=== PATIENT | male | born 1965 | race Caucasian/White ===

== ENCOUNTER 2017-06-30 11:00 | Outpatient (RCR) | payer MEDICAID, SELFPAY ==
--- NOTE | 2017-05-10 11:04 | HP.PTEVAL_ITS ---
Patient's Visit Information VITA MAYORGA is a 52 year old M referred to Physical Therapy by SHADE Andres with a diagnosis of LOW BACK PAIN AND LEFT HIP. Date of Evaluation: 05/10/17 Physical Therapist: Yury Ortiz, PT, - Visit Plan Frequency: 2x /Week Duration: 4 Weeks Plan: Aquatics PT for lumbar ROM,DLS,postural ex's ,strengthening,flexablity - Subjective Subjective: This 52 y/o male presents to physcal therapy for low back pain and left hip pain. Patient has had lumbar pain 1992 fell 2story building of [facility] had fx lumbar . 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 Pain has had several pain injections over years. Started see DR Edge. Patient has multple comormidties liver and immune. Symptoms worse in lumbar worse with standing,walking,bending, lifting. Symptoms rest and,on side. Dr x-rays and MRI. Bowel/bladder good. C/O parathesia/tingling legs.Prior PT. Patient pain affects ADL'S and housework. 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 SOCIAL: - Pain Bilateral Back Pain Intensity (Out of 10): 7 Pain Intensity Range: 10 Bilateral Lower Extremity Pain Intensity (Out of 10): 7 Comment: left worse - Objective POSTURE: mild posture. GAIT: mild foward posture antalgic gait. NEURO:c/o parathesia/tingling,light touch inact,reflexes L3-4,L4-5,L5-S1 1/2. FLEXABLITY : hams mod tight. MMT: quads/hams 4-/5,ankle 4/5,L-3+/5 R-4-/5 HIPFLEXION/ABD. DIMINISHED HEEL/TOE WALKING. LUMBAR ROM: flexion mod loss,extension mod pain, SG'S mod loss pain - Special Tests L/S Slump test left side: Negative L/S Slump test right side: Negative L/S Left Straight Leg Raise: Negative L/S Right Straight Leg Raise: Negative Lumbar Standing: Flexion - Mechanical Response: No effect Lumbar Standing: Flexion - Symptoms During Testing: Increases Lumbar Standing: Flexion - Symptoms After Testing: Worse Lumbar Standing: Extension - Mechanical Response: No effect Lumbar Standing: Extension - Symptoms During Testing: Increases Lumbar Standing: Extension - Symptoms After Testing: Worse - Goals Goal 1:: Patient to Independant Aquatic PT Goal Time Frame: 4-6 Weeks Goal 2:: Independant with posture for ADLS' Goal Time Frame: 4-6 Weeks Goal 3:: Decrease lumbar pain by 50% or greater to improve function with walking standing Goal Time Frame: 4-6 Weeks Goal 4:: Patient to increase strength quads/hams/hip to 4/5 to improve function with standing and walking. Goal Time Frame: 4-6 Weeks Goal 5:: Patient improve lumbar with less pain ROM for functiion of recovery. Goal Time Frame: 4-6 Weeks - Rehabilitation Potential Physical Therapy Diagnosis: This 52 y/o male presents to physical therapy with low back pain and hip pain with multiple comormidites along with THR left , lumbar fx ,pain with function,loss of ROM , decrease strength LE thus benifit from skilled PT. Rehabilitation Potential: Good - Anticipated Interventions Patient/Client Instruction: Educate patient on: Condition, Plan of Care For the Purpose of:: To decrease pain, To increase ROM, To improve muscle performance and motor function, To improve ability to perform ADL's, To improve health of tissue, To decrease soft tissue restriction, To increase flexibility/ ROM, To improve endurance, To improve health and function, To improve ability to perform tasks related to life management Therapeutic Exercise to Include: Strength training, Body mechanics, Postural training, Flexibilty training, In an aquatic setting, Active ROM, Scapular Strength/Stabilization For the Purpose of:: To decrease pain, To increase ROM, To improve muscle performance and motor function, To increase tolerance to activity/condition/ position, To improve ability of physical actions for home/community/work/leisure , To improve health of tissue, To decrease soft tissue restriction, To increase flexibility/ROM, To improve health and function, To improve ability to perform tasks related to life management Thank you for the opportunity to evaluate your patient. For Medicare and Medicare HMO plans, please review the plan of care and approve it. It will need to be FAXED BACK to us at [phone] for Medicare purposes. Please let me know if there are questions or concerns regarding this plan of care. Physician Signature: Date:
--- NOTE | 2017-08-24 13:55 | HP.PTDCNRP_ITS ---
HP - Discharge Summary (1) - Patient Information VITA MAYORGA was seen in my office for initial evaluation on 05/10/17. The following Plan of Care was established for this patient: Initial Frequency: 2x /Week Initial Duration: 4 Weeks - Anticipated Interventions Patient/Client Instruction: Educate patient on: Condition, Plan of Care For the Purpose of:: To decrease pain, To increase ROM, To improve muscle performance and motor function, To improve ability to perform ADL's, To improve health of tissue, To decrease soft tissue restriction, To increase flexibility/ ROM, To improve endurance, To improve health and function, To improve ability to perform tasks related to life management Therapeutic Exercise to Include: Strength training, Body mechanics, Postural training, Flexibilty training, In an aquatic setting, Active ROM, Scapular Strength/Stabilization For the Purpose of:: To decrease pain, To increase ROM, To improve muscle performance and motor function, To increase tolerance to activity/condition/ position, To improve ability of physical actions for home/community/work/leisure , To improve health of tissue, To decrease soft tissue restriction, To increase flexibility/ROM, To improve health and function, To improve ability to perform tasks related to life management This patient was last seen in our office 06/30/17. Pertinent comments regarding their Physical therapy will appear below: Patient seen for PT for LBP and hip pain in Aquatic ex's for lumbar ROM , strengthening ,DLS with patient progressing with decreasing pain ,increasing strength for function ,thus is d/c . At this point I will be discontinuing this patient from physical therapy. I would be happy to see this patient again in the future if found appropriate by the physician. Thank you! Yury Ortiz, PT,
== END 2017-06-30 19:00 | disposition home or self-care (01) ==
LOC: PT 11:00
PROVIDERS: Family Provider Internal Medicine; PCP Internal Medicine; Visit Provider Nurse Practitioner Family
DX: M54.5 Low back pain (principal); M25.552 Pain in left hip
CPT/HCPCS: 97113; 97162; 97530

== ENCOUNTER 2017-07-21 16:48 | Observation (INO) | payer MEDICAID, SELFPAY ==
[2017-07-21] VITALS (10 sets, daily range): BP systolic 113–138; BP diastolic 78–96; PULSE 73–107; RESP 13–22; TEMP 36.5–36.8; O2SAT 96–99; BMI 30.4; BMI 28.7
--- NOTE | 2017-07-21 17:05 | EKG12_ITS ---
Test Reason : CP Blood Pressure : / mmHG Vent. Rate : 094 BPM Atrial Rate : 094 BPM P-R Int : 118 ms QRS Dur : 082 ms QT Int : 324 ms P-R-T Axes : 019 069 033 degrees QTc Int : 405 ms Normal sinus rhythm Normal ECG Confirmed by BETY MOHAN, PETRONA ([id number]), metropolitan editor OSCAR QUEZADA ([id number]) on 07/25/2017 1:15:08 PM Referred By: LEAH Confirmed By:PETRONA ALBERT MD
--- NOTE | 2017-07-21 17:10 | RAD_ITS ---
STUDY: X-RAY CHEST REASON FOR EXAM: Male, 52 years old. Chest pain. TECHNIQUE: Single AP portable upright view of the chest. COMPARISON: Portable AP upright chest x-ray March 17, 2017. FINDINGS: Minimal subsegmental volume loss in the inferior left lung base. The lungs are otherwise clear and expanded. There is no demonstrated pleural abnormality. Normal size heart. Normal mediastinum and rima. Normal visualized pulmonary arteries. Normal visualized aortic arch and descending thoracic aorta. Normal visualized thoracic spine. Normal visualized ribs, clavicles, and shoulders. There is no demonstrated abnormality of the visualized soft tissue structures of the upper abdomen. RAD/Chest 1 View (Portable) IMPRESSION: Minimal inferior left lung base subsegmental volume loss. Electronically Signed: Og Tipton MD at 18:23 EST , Service support ,
[2017-07-21] MEDS: 0.9% Normal Saline 1,000 ML 150 ML IV (17:23)
[2017-07-21 17:34] LABS: Absolute Lymphocyte Count 3.99 X10^3/ul (0.83-4.51); Absolute Neutrophil Count 16.8 X10^3/uL (2.0-7.7); Basophil# 0.01 X10^3/uL; Eosinophil# 0.01 X10^3/uL; Hemoglobin 16.3 g/dl (13.0-16.5); Lymphocyte # 3.99 X10^3/ul (4.0); Lymphocyte % 18.1 % (19-41); Mean Corp Hgb Conc 33.3 g/gl (32-36); Mean Corpuscular Hgb 31.8 pg (27.0-32.0); Mean Corpuscular Volume 95.5 fL (80-94); Monocyte# 1.18 X10^3/uL; Monocyte% 5.4 % (0-10); Neutrophil # 16.75 X10^3/uL (2.7-7.7); Neutrophil % 76.1 % (47-70); POSITIVE COUNT NO; POSITIVE DIFFERENTIAL NO; POSITIVE MORPHOLOGY NO; Platelet Count 306 K/mm3 (150-450); RBC Distribution Width CV 12.4 % (11.6-14.6); RBC Distribution Width SD 43.3 fl (35.1-43.9); Red Blood Count 5.13 M/mm3 (4.6-6.2)
[2017-07-21 17:49] LABS: D-Dimer Quantitative (DVT/PE) 3.77 FEU/ug/m (0.27-0.49)
--- NOTE | 2017-07-21 17:52 | CT_ITS ---
STUDY: CTA CHEST REASON FOR EXAM: Male, 52 years old. STERNAL CP, COUGH, PA, COPD, HEP C, [place], NON-HODGKINS LYMPHOMA RADIATION DOSAGE (If Supplied By Facility): CTDIvol = ( 15.90 ) mGy, DLP = ( 531.15 ) mGycm TECHNIQUE: The examination was performed with the intravenous administration of 100ML ml of Isovue 370 contrast material. Post-processing of the angiographic images was performed, with multiplanar reformation and 3D reconstruction. Individualized dose optimization techniques were used for this CT. COMPARISON: None. FINDINGS: Normal enhancement of the main pulmonary artery and right and left pulmonary arteries. Normal enhancement of the bilateral peripheral pulmonary arteries. There is no demonstrated pulmonary embolism. Normal thoracic aorta and visualized great vessels. There is no demonstrated aortic dissection. There are calcifications of the coronary arteries. Normal mediastinum. Normal hilar regions. Normal visualized trachea and bronchi. The lungs are well expanded . Normal pulmonary parenchyma. Normal pleura. Normal chest wall structures. Normal osseous structures. Normal visualized upper abdomen. CT/CTA Chest W/WO Contrast IMPRESSION: There are calcifications of the coronary arteries. No demonstrated pulmonary embolism or arterial dissection. Electronically Signed: Saeed Caicedo MD at 20:01 EST , Service support ,
[2017-07-21 17:54] LABS: Anion Gap 9 (5-15); BUN 19 mg/dL (7-18); BUN/Creat Ratio 17.9 RATIO (10-20); Calcium,Total 8.6 mg/dL (8.5-10.1); Chloride 104 mmol/L (98-107); Creatinine, Serum 1.06 mg/dL (0.70-1.30); EST Glomerular Filtration Rate 79 mL/min (>60); Est Glom Filt Rate - Afr Amer 95 mL/min (>60); Estimated Creatinine Clearance 75.24 ml/min; Glucose 108 mg/dL (74-106); Sodium Level 140 mmol/L (136-145)
[2017-07-21] MEDS: Ondansetron 4 MG/2 ML Vial IV (19:40)
--- NOTE | 2017-07-21 21:40 | PCM.HP.STD ---
Problem List (1) [place] lymphoma Status: Chronic (2) Myocardial infarction Status: Chronic (3) Hypothyroidism Status: Chronic (4) Cocaine abuse Status: Chronic (5) COLD (chronic obstructive lung disease) Status: Chronic (6) Chronic hepatitis C Status: Chronic (7) Bipolar disorder Status: Chronic History of Present Illness Date of Admission: 07/21/17 Chief Complaint: Chest pain. The patient is a 52 year old M with past medical history as mentioned above presented to the medicine because of chest pain. His illness started 3 days ago with left-sided chest pain, sharp pain, 5-6 out of 10 in severity, radiates to left side of his neck as well as left upper arm, associated with shortness of breath and dizziness and without aggravating or relieving factors. He mentioned that his chest pain improved after he received nitroglycerin in the emergency room. He mentioned that yesterday, he got more short of breath and he has been using his inhaler at home without improvement. He complains of cough without sputum production. He reported history of 2 heart attacks in the past, status post cardiac catheterization without history of cardiac interventions, no stents or CABG. In the emergency room, his vital signs were stable. His routine blood work is remarkable for leukocytosis, otherwise normal. EKG revealed normal sinus rhythm, normal QRS normal IN interval and no acute ischemic changes. Chest x-ray showed no evidence of acute infiltrate, consolidation or effusion. D-dimer was elevated at 3.774 CTA chest done and showed no evidence of PE or dissection. He is being admitted for chest pain for evaluation. Past Medical History Past Medical History (Chronic Problems): Chronic Problems Tobacco user (Chronic) [place] lymphoma (Chronic) Myocardial infarction (Chronic) Hypothyroidism (Chronic) Cocaine abuse (Chronic) COLD (chronic obstructive lung disease) (Chronic) Chronic hepatitis C (Chronic) Bipolar disorder (Chronic) Allergies naproxen [From Naprosyn] Adverse Reaction (Verified 02/23/17 19:15) Upset Stomach BEE VENOM Allergy (Uncoded 02/23/17 19:15) Anaphylaxis Home Medications: Ambulatory Orders Medication Instructions Recorded Levothyroxine [Synthroid] 112 mcg PO DAILY 07/10/16 [place] Carbonate [[place] 300 mg PO DAILY 07/10/16 Carbonate ER] Albuterol Sulfate [Proventil Hfa] 6.7 gm IH Q4H PRN 10/21/16 Gabapentin [Neurontin] 900 mg PO TIDCM 10/21/16 Acyclovir [Zovirax] 1 tab PO DAILY 07/21/17 Buprenorphine [Buprenorphine] 1 patch TD QWEEK 07/21/17 Meloxicam [Mobic] 15 mg PO DAILY 07/21/17 MethylPREDNISolone DosePak [Medrol 1 tab PO DAILY 07/21/17 DosePak] Nitroglycerin 0.4 mg SL PRN PRN 07/21/17 Prednisone 20 mg PO DAILY 07/21/17 Surgical History: appendectomy, arthroscopy, knee, total hip arthroplasty, - - Facial reconstructive surgery. Psychiatric History: Bipolar Lives: Spouse/ Significant Other Smoking Status: Current every day smoker Alcohol: None Drugs: None - *Family History Maternal History Items: No pertinent history Paternal History Items: No pertinent history Review of Systems Constitutional: Reports: Anorexia. Denies: Chills, Fever, Weakness Eyes: Denies: Blurred vision, Double vision, Drainage, Redness HEENT: Denies: Difficulty Hearing, Ear Pain, Eye Pain, Nasal Congestion, Sore Throat Cardiovascular: Reports: Chest Pain, Light Headedness. Denies: Chest Pressure, Edema, Heaviness, Orthopnea, Palpitations, Paroxysmal Noc. Dyspnea, Syncope Respiratory: Reports: Cough, Shortness of Breath. Denies: Pleuritic Pain, Sputum production, Wheezing Gastrointestinal: Denies: Abdominal Pain, Constipation, Diarrhea, Nausea, Vomiting Genitourinary: Denies: Dysuria, Frequency, Hematuria Musculoskeletal: Denies: Arm Pain, Back Pain, Foot Pain Skin: Denies: Dryness, Rash Neurological: Denies: Balance problems, Change in Speech, Slurred speech, Confusion, Headaches, Incoordination, Numbness, Tingling Psychiatric: Denies: Anxiety, Depression Endocrine: Denies: Change in Body Habitus, Polydipsia VTE Information - Inpt Only VTE Present on Admission: No VTE Mechan Device Prophylaxis: None VTE Pharm Prophylaxis ordered?: No - Physical Exam General: Alert, Oriented x3, Cooperative, No apparent distress HEENT: Atraumatic, PERRLA, EOMI Oral: Moist Mucosa, No Gingival or Mucosal Lesions/ Ulcerations Neck: Supple, No JVD, Negative Carotid Bruits, Trachea Midline, Thyroid Normal Size and Texture Lungs: Clear to auscultation, No rhonchi, No wheeze, No rales, Diminished Cardiovascular: Regular rate, Regular Rhythm, Normal S1, Normal S2, PMI Normal Abdomen: Bowel Sounds Present, Soft, Non Tender, Non-Distended, No Hepato-splenomegaly Extremities: No clubbing, No cyanosis, No edema Skin: No rashes, No breakdown Lymphatic: No Cervical, Supraclavicular, or Inguinal Adenopathy Neurological: Cranial nerves II-XII grossly intact, Motor Exam 5/5 strength throughout Psych/Mental Status: Normal Affect, Appropriate, Alert and oriented to time, place, person, mood and affect Vital Signs Temp Pulse Resp BP Pulse Ox 98.3 F 74 16 129/96 H 98 07/21/17 16:49 07/21/17 21:35 07/21/17 21:35 07/21/17 21:35 07/21/17 21:35 Oxygen Flow Rate 2 Oxygen Delivery Method Nasal Cannula Weight: 188 lb 4.396 oz Body Mass Index (BMI) 30.4 Laboratory Tests Past 24 Hrs 07/21/17 07/21/17 07/21/17 16:55 16:55 16:55 WBC 22.0 H RBC 5.13 Hgb 16.3 Hct 49.0 MCV 95.5 H MCH 31.8 MCHC 33.3 RDW 12.4 RDW Differential 43.3 Plt Count 306 MPV 9.0 Immature Gran % (Auto) 0.400 Neut % (Auto) 76.1 H Lymph % (Auto) 18.1 L [place] % (Auto) 5.4 Eos % (Auto) 0.0 Baso % (Auto) 0.0 Absolute Neuts (auto) 16.8 H Absolute Lymphs (auto) 3.99 Total Counted Not Reportable D-Dimer Quant (PE/DVT) 3.77 H* Sodium 140 Potassium 4.0 Chloride 104 Carbon Dioxide 27.0 Anion Gap 9 BUN 19 H Creatinine 1.06 Estim Creat Clear Calc 75.24 Est GFR (MDRD) Af Amer 95 Est GFR (MDRD) Non-Af 79 BUN/Creatinine Ratio 17.9 Glucose 108 H Calcium 8.6 Troponin I < 0.02 Clinical Impression(s) from Imaging Studies Chest X-Ray 07/21/17 17:10 IMPRESSION: Minimal inferior left lung base subsegmental volume loss. Electronically Signed: Og Tipton MD at 18:23 EST , Service support , Chest CTA 07/21/17 17:52 IMPRESSION: There are calcifications of the coronary arteries. No demonstrated pulmonary embolism or arterial dissection. Electronically Signed: Saeed Caicedo MD at 20:01 EST , Service support , Assessment/Plan This is a 52 years old male patient presented to the emergency room because of chest pain and shortness of breath, found to have leukocytosis and elevated d-dimer and he is being admitted for evaluation for chest pain. #1 chest pain: According to the patient, he had a history of 2 heart attacks in the past as well as cardiac catheterization without cardiac interventions. EKG was normal, no acute ischemic changes. First troponin is negative. Chest x-ray showed no acute findings. CTA chest without acute PE or dissection. Vital signs are stable. Plan: Admit to PCU for observation, cardiac monitoring, serial cardiac enzymes, repeat EKG tomorrow morning, sublingual nitroglycerin as needed for chest pain, antiemetics, Tylenol as needed, nuclear stress test tomorrow morning if cardiac enzymes are negative. #2 elevated d-dimer: CTA chest negative for PE or dissection. Unclear etiology. #3 leukocytosis: Without evidence of infection. Chest x-ray and CTA chest showed no acute infiltrate, pneumonia ruled out. Patient denies any urinary symptoms. He does have chronic elevation of his white blood cell count which is likely because of the non-Hodgkin's lymphoma. Also, he was in steroids as outpatient for shingles along with acyclovir. He is afebrile, plan to repeat CBC tomorrow morning. #4 hypothyroidism: Continue levothyroxine. #5 COPD: Pulse ox is 99% on 2 L of oxygen. Chest x-ray reviewed as above. Plan for DuoNeb every 6 hours, albuterol as needed. #6 history of non-Hodgkin's lymphoma: Stable, no acute issues. #7 bipolar disorder: Continue lithium. #8 history of cocaine abuse: Patient mentioned that he has been clean for 5 years, denied any recent use of drugs. #9 chronic hepatitis C: Stable, no acute issues. #10 recent history of shingles: Continue acyclovir. #11 DVT prophylaxis: Low risk patient, no prophylaxis indicated. This note was generated with [employer] dictation software. It may contain incorrect words, spelling, and punctuation that were not noted in checking the note before signing. Code Visit OBSV E&M: 59035 Initial observation care L3
--- NOTE | 2017-07-21 21:46 | HP.PCM_ITS ---
Problem List (1) [place] lymphoma Status: Chronic (2) Myocardial infarction Status: Chronic (3) Hypothyroidism Status: Chronic (4) Cocaine abuse Status: Chronic (5) COLD (chronic obstructive lung disease) Status: Chronic (6) Chronic hepatitis C Status: Chronic (7) Bipolar disorder Status: Chronic History of Present Illness Date of Admission: 07/21/17 Chief Complaint: Chest pain. The patient is a 52 year old M with past medical history as mentioned above presented to the medicine because of chest pain. His illness started 3 days ago with left-sided chest pain, sharp pain, 5-6 out of 10 in severity, radiates to left side of his neck as well as left upper arm, associated with shortness of breath and dizziness and without aggravating or relieving factors. He mentioned that his chest pain improved after he received nitroglycerin in the emergency room. He mentioned that yesterday, he got more short of breath and he has been using his inhaler at home without improvement. He complains of cough without sputum production. He reported history of 2 heart attacks in the past, status post cardiac catheterization without history of cardiac interventions, no stents or CABG. In the emergency room, his vital signs were stable. His routine blood work is remarkable for leukocytosis, otherwise normal. EKG revealed normal sinus rhythm, normal QRS normal ME interval and no acute ischemic changes. Chest x-ray showed no evidence of acute infiltrate, consolidation or effusion. D-dimer was elevated at 3.774 CTA chest done and showed no evidence of PE or dissection. He is being admitted for chest pain for evaluation. Past Medical History Past Medical History (Chronic Problems): Chronic Problems Tobacco user (Chronic) [place] lymphoma (Chronic) Myocardial infarction (Chronic) Hypothyroidism (Chronic) Cocaine abuse (Chronic) COLD (chronic obstructive lung disease) (Chronic) Chronic hepatitis C (Chronic) Bipolar disorder (Chronic) Allergies naproxen [From Naprosyn] Adverse Reaction (Verified 02/23/17 19:15) Upset Stomach BEE VENOM Allergy (Uncoded 02/23/17 19:15) Anaphylaxis Home Medications: Ambulatory Orders Medication Instructions Recorded Levothyroxine [Synthroid] 112 mcg PO DAILY 07/10/16 [place] Carbonate [[place] 300 mg PO DAILY 07/10/16 Carbonate ER] Albuterol Sulfate [Proventil Hfa] 6.7 gm IH Q4H PRN 10/21/16 Gabapentin [Neurontin] 900 mg PO TIDCM 10/21/16 Acyclovir [Zovirax] 1 tab PO DAILY 07/21/17 Buprenorphine [Buprenorphine] 1 patch TD QWEEK 07/21/17 Meloxicam [Mobic] 15 mg PO DAILY 07/21/17 MethylPREDNISolone DosePak [Medrol 1 tab PO DAILY 07/21/17 DosePak] Nitroglycerin 0.4 mg SL PRN PRN 07/21/17 Prednisone 20 mg PO DAILY 07/21/17 Surgical History: appendectomy, arthroscopy, knee, total hip arthroplasty, - - Facial reconstructive surgery. Psychiatric History: Bipolar Lives: Spouse/ Significant Other Smoking Status: Current every day smoker Alcohol: None Drugs: None - *Family History Maternal History Items: No pertinent history Paternal History Items: No pertinent history Review of Systems Constitutional: Reports: Anorexia. Denies: Chills, Fever, Weakness Eyes: Denies: Blurred vision, Double vision, Drainage, Redness HEENT: Denies: Difficulty Hearing, Ear Pain, Eye Pain, Nasal Congestion, Sore Throat Cardiovascular: Reports: Chest Pain, Light Headedness. Denies: Chest Pressure, Edema, Heaviness, Orthopnea, Palpitations, Paroxysmal Noc. Dyspnea, Syncope Respiratory: Reports: Cough, Shortness of Breath. Denies: Pleuritic Pain, Sputum production, Wheezing Gastrointestinal: Denies: Abdominal Pain, Constipation, Diarrhea, Nausea, Vomiting Genitourinary: Denies: Dysuria, Frequency, Hematuria Musculoskeletal: Denies: Arm Pain, Back Pain, Foot Pain Skin: Denies: Dryness, Rash Neurological: Denies: Balance problems, Change in Speech, Slurred speech, Confusion, Headaches, Incoordination, Numbness, Tingling Psychiatric: Denies: Anxiety, Depression Endocrine: Denies: Change in Body Habitus, Polydipsia VTE Information - Inpt Only VTE Present on Admission: No VTE Mechan Device Prophylaxis: None VTE Pharm Prophylaxis ordered?: No - Physical Exam General: Alert, Oriented x3, Cooperative, No apparent distress HEENT: Atraumatic, PERRLA, EOMI Oral: Moist Mucosa, No Gingival or Mucosal Lesions/ Ulcerations Neck: Supple, No JVD, Negative Carotid Bruits, Trachea Midline, Thyroid Normal Size and Texture Lungs: Clear to auscultation, No rhonchi, No wheeze, No rales, Diminished Cardiovascular: Regular rate, Regular Rhythm, Normal S1, Normal S2, PMI Normal Abdomen: Bowel Sounds Present, Soft, Non Tender, Non-Distended, No Hepato- splenomegaly Extremities: No clubbing, No cyanosis, No edema Skin: No rashes, No breakdown Lymphatic: No Cervical, Supraclavicular, or Inguinal Adenopathy Neurological: Cranial nerves II-XII grossly intact, Motor Exam 5/5 strength throughout Psych/Mental Status: Normal Affect, Appropriate, Alert and oriented to time, place, person, mood and affect Vital Signs Temp Pulse Resp BP Pulse Ox 98.3 F 74 16 129/96 H 98 07/21/17 16:49 07/21/17 21:35 07/21/17 21:35 07/21/17 21:35 07/21/17 21:35 Oxygen Flow Rate 2 Oxygen Delivery Method Nasal Cannula Weight: 188 lb 4.396 oz Body Mass Index (BMI) 30.4 Laboratory Tests Past 24 Hrs 07/21/17 07/21/17 07/21/17 16:55 16:55 16:55 WBC 22.0 H RBC 5.13 Hgb 16.3 Hct 49.0 MCV 95.5 H MCH 31.8 MCHC 33.3 RDW 12.4 RDW Differential 43.3 Plt Count 306 MPV 9.0 Immature Gran % (Auto) 0.400 Neut % (Auto) 76.1 H Lymph % (Auto) 18.1 L [place] % (Auto) 5.4 Eos % (Auto) 0.0 Baso % (Auto) 0.0 Absolute Neuts (auto) 16.8 H Absolute Lymphs (auto) 3.99 Total Counted Not Reportable D-Dimer Quant (PE/DVT) 3.77 H* Sodium 140 Potassium 4.0 Chloride 104 Carbon Dioxide 27.0 Anion Gap 9 BUN 19 H Creatinine 1.06 Estim Creat Clear Calc 75.24 Est GFR (MDRD) Af Amer 95 Est GFR (MDRD) Non-Af 79 BUN/Creatinine Ratio 17.9 Glucose 108 H Calcium 8.6 Troponin I < 0.02 Clinical Impression(s) from Imaging Studies Chest X-Ray 07/21/17 17:10 IMPRESSION: Minimal inferior left lung base subsegmental volume loss. Electronically Signed: Og Tipton MD at 18:23 EST , Service support , Chest CTA 07/21/17 17:52 IMPRESSION: There are calcifications of the coronary arteries. No demonstrated pulmonary embolism or arterial dissection. Electronically Signed: Saeed Caicedo MD at 20:01 EST , Service support , Assessment/Plan This is a 52 years old male patient presented to the emergency room because of chest pain and shortness of breath, found to have leukocytosis and elevated d- dimer and he is being admitted for evaluation for chest pain. #1 chest pain: According to the patient, he had a history of 2 heart attacks in the past as well as cardiac catheterization without cardiac interventions. EKG was normal, no acute ischemic changes. First troponin is negative. Chest x- ray showed no acute findings. CTA chest without acute PE or dissection. Vital signs are stable. Plan: Admit to PCU for observation, cardiac monitoring, serial cardiac enzymes, repeat EKG tomorrow morning, sublingual nitroglycerin as needed for chest pain, antiemetics, Tylenol as needed, nuclear stress test tomorrow morning if cardiac enzymes are negative. #2 elevated d-dimer: CTA chest negative for PE or dissection. Unclear etiology. #3 leukocytosis: Without evidence of infection. Chest x-ray and CTA chest showed no acute infiltrate, pneumonia ruled out. Patient denies any urinary symptoms. He does have chronic elevation of his white blood cell count which is likely because of the non-Hodgkin's lymphoma. Also, he was in steroids as outpatient for shingles along with acyclovir. He is afebrile, plan to repeat CBC tomorrow morning. #4 hypothyroidism: Continue levothyroxine. #5 COPD: Pulse ox is 99% on 2 L of oxygen. Chest x-ray reviewed as above. Plan for DuoNeb every 6 hours, albuterol as needed. #6 history of non-Hodgkin's lymphoma: Stable, no acute issues. #7 bipolar disorder: Continue lithium. #8 history of cocaine abuse: Patient mentioned that he has been clean for 5 years, denied any recent use of drugs. #9 chronic hepatitis C: Stable, no acute issues. #10 recent history of shingles: Continue acyclovir. #11 DVT prophylaxis: Low risk patient, no prophylaxis indicated. This note was generated with [employer] dictation software. It may contain incorrect words, spelling, and punctuation that were not noted in checking the note before signing. Code Visit OBSV E&M: 83540 Initial observation care L3
[2017-07-22] VITALS (9 sets, daily range): BP systolic 99–112; BP diastolic 60–74; PULSE 67–110; RESP 16–18; TEMP 36.6–36.7; O2SAT 95–98
--- NOTE | 2017-07-22 00:48 | ED.VISSUMM ---
- ER Visit Summary Date of Service: 07/21/17 Chief Complaint: Chest pain History of Present Illness: The patient is a 52 M with a 2-3 day history of waxing and waning chest pain. He describes a general heaviness that radiates up his left neck down his left arm. He also reports intermittent sharp pain along the left sternal border. He has had shortness of breath and lightheadedness. He advises me that he has had 2 prior MIs. He does not have any cardiac stents. He states that he was recently diagnosed with shingles and is currently on steroids. Physical Examination: Vital signs are unremarkable. Head and neck examination is unremarkable. Heart is regular rate and rhythm. Lung sounds are clear. He does have mild tenderness along left sternal border. Abdomen is soft nontender. Skin examination reveals scattered erythematous lesions on the face and bilateral arms. It is not consistent with shingles at this time. Lower extremity examination was no calf tenderness or edema. Test Results: EKG is sinus at 94 with no sign of acute ischemia. CBC reveals minimal left lung base volume loss. CBC was a white count of 22.0, likely secondary to patient's steroid use. Chemistry studies are normal. Troponin is less than 0.02. D-dimer is elevated at 3.77. CTA of the chest reveals calcifications of the coronary arteries. No evidence of PE or dissection was noted. Emergency Department Course and Treatment: Patient was given aspirin and sublingual nitro with EMS. He received a GI cocktail for his complaint of reflux along with some morphine for pain here. Although the patient has had 2-3 days of pain, am concerned about him being lost to follow-up in the past and having documented calcifications of his coronary arteries on scan here. He will be admitted for further evaluation. Treatment Plan: [] Disposition: Discharge Impression: Chest pain This note was generated with HubPages dictation software. It may contain incorrect words, spelling, and punctuation that were not noted in review of the chart prior to signing ED Disposition - Plan for ED Patient: Disposition: Acute Care Hospital [facility] Chief Complaint: Chest Pain
--- NOTE | 2017-07-22 00:51 | ED.DCSUM_ITS ---
- ER Visit Summary Date of Service: 07/21/17 Chief Complaint: Chest pain History of Present Illness: The patient is a 52 M with a 2-3 day history of waxing and waning chest pain. He describes a general heaviness that radiates up his left neck down his left arm. He also reports intermittent sharp pain along the left sternal border. He has had shortness of breath and lightheadedness. He advises me that he has had 2 prior MIs. He does not have any cardiac stents. He states that he was recently diagnosed with shingles and is currently on steroids. Physical Examination: Vital signs are unremarkable. Head and neck examination is unremarkable. Heart is regular rate and rhythm. Lung sounds are clear. He does have mild tenderness along left sternal border. Abdomen is soft nontender. Skin examination reveals scattered erythematous lesions on the face and bilateral arms. It is not consistent with shingles at this time. Lower extremity examination was no calf tenderness or edema. Test Results: EKG is sinus at 94 with no sign of acute ischemia. CBC reveals minimal left lung base volume loss. CBC was a white count of 22.0, likely secondary to patient's steroid use. Chemistry studies are normal. Troponin is less than 0.02. D-dimer is elevated at 3.77. CTA of the chest reveals calcifications of the coronary arteries. No evidence of PE or dissection was noted. Emergency Department Course and Treatment: Patient was given aspirin and sublingual nitro with EMS. He received a GI cocktail for his complaint of reflux along with some morphine for pain here. Although the patient has had 2- 3 days of pain, am concerned about him being lost to follow-up in the past and having documented calcifications of his coronary arteries on scan here. He will be admitted for further evaluation. Treatment Plan: [] Disposition: Discharge Impression: Chest pain This note was generated with Inter[employer]olve dictation software. It may contain incorrect words, spelling, and punctuation that were not noted in review of the chart prior to signing ED Disposition - Plan for ED Patient: Disposition: Acute Care Hospital [facility] Chief Complaint: Chest Pain
[2017-07-22] MEDS: Gabapentin 300 MG Capsule 900 MG PO ×2 (01:01→11:12)
[2017-07-22] MEDS: 0.9% Normal Saline 1,000 ML 75 ML IV (01:01)
[2017-07-22] MEDS: Ipratropium/Albuterol Sulfate 3 ML AMPUL.NEB INHALATION (01:04)
[2017-07-22] MEDS: 0.9% NaCl Peripheral Flush Adult/Peds IV (01:58)
[2017-07-22 03:23] LABS: Absolute Lymphocyte Count 5.07 X10^3/ul (0.83-4.51); Absolute Neutrophil Count 9.3 X10^3/uL (2.0-7.7); Basophil# 0.02 X10^3/uL; Basophil% 0.1 % (0-1); Eosinophil# 0.07 X10^3/uL; Eosinophils% 0.4 % (0-5); Hematocrit 47.5 % (40-54); Hemoglobin 16.3 g/dl (13.0-16.5); Lymphocyte # 5.07 X10^3/ul (4.0); Lymphocyte % 31.7 % (19-41); Mean Corp Hgb Conc 34.3 g/gl (32-36); Mean Corpuscular Hgb 32.4 pg (27.0-32.0); Mean Corpuscular Volume 94.4 fL (80-94); Mean Platelet Vol. 8.8 fl (6.2-12.0); Monocyte% 8.8 % (0-10); Neutrophil # 9.33 X10^3/uL (2.7-7.7); Neutrophil % 58.4 % (47-70); Platelet Count 275 K/mm3 (150-450); RBC Distribution Width CV 12.7 % (11.6-14.6); RBC Distribution Width SD 43.1 fl (35.1-43.9); Red Blood Count 5.03 M/mm3 (4.6-6.2)
[2017-07-22 03:25] LABS: Differential Indicated SCAN CRITERIA MET; POSITIVE COUNT NO; POSITIVE DIFFERENTIAL YES; POSITIVE MORPHOLOGY NO
--- NOTE | 2017-07-22 05:55 | EKG12_ITS ---
Test Reason : AM EKG Blood Pressure : / mmHG Vent. Rate : 082 BPM Atrial Rate : 082 BPM P-R Int : 130 ms QRS Dur : 084 ms QT Int : 368 ms P-R-T Axes : 038 067 035 degrees QTc Int : 429 ms Normal sinus rhythm Normal ECG Confirmed by BETY MOHAN, PETRONA ([id number]), editor house organ OSCAR QUEZADA ([id number] on 07/27/2017 2:42:46 PM Referred By: MANDEEP Confirmed By:PETRONA ALBERT MD
[2017-07-22] MEDS: Levothyroxine 112 MCG Tablet PO (06:05)
[2017-07-22 07:14] LABS: International Normalized Ratio 0.9; Prothrombin Time (Protime)PT. 11.6 SECONDS (11.7-14.9)
[2017-07-22 07:15] LABS: Partial Thromboplast Time 25.3 Seconds (24.1-36.2)
[2017-07-22 07:43] LABS: Anion Gap 7 (5-15); BUN 21 mg/dL (7-18); BUN/Creat Ratio 22.1 RATIO (10-20); Calcium,Total 7.8 mg/dL (8.5-10.1); Chloride 105 mmol/L (98-107); Creatinine, Serum 0.95 mg/dL (0.70-1.30); EST Glomerular Filtration Rate 89 mL/min (>60); Est Glom Filt Rate - Afr Amer 108 mL/min (>60); Estimated Creatinine Clearance 83.95 ml/min; Glucose 105 mg/dL (74-106); Potassium 3.5 mmol/L (3.5-5.1); Sodium Level 139 mmol/L (136-145)
[2017-07-22] MEDS: Lithium Carbonate 300mg Capsule 300 MG PO (11:13)
--- NOTE | 2017-07-22 11:23 | STRESSREP ---
Stress Test Report Pharmacologic myocardial perfusion stress test. 52-year-old man with a history of chest pain. Stress protocol: Resting EKG demonstrates normal sinus rhythm with rate of 60 bpm resting blood pressure is 98/70 mmHg. 0.4 mg of regadenoson was infused per usual protocol followed by rapid intravenous saline flush injection. Continuous EKG monitoring was performed. The patient maintained sinus rhythm throughout the recording. At rest there were no ST or T-wave changes noted to suggest abnormal flow reserve at peak infusion no ST or T-wave changes were noted to suggest abnormal flow reserve. Echo angina was noted. The resting blood pressure was 98/70 mmHg and if final blood pressure 100/62 mmHg. Cardial perfusion protocol. 12.0 mCi of technetium 99m sestamibi was injected at rest. 0.4 mg of regadenoson was infused per usual protocol. At peak infusion 34.0 mCi of technetium 99m sestamibi was injected. Stress images were obtained stress and rest images were reconstructed and compared in the short axis vertical long and horizontal long axis. Gated images were also obtained. Perfusion SPECT analysis: Review of the stress images demonstrate normal uptake of tracer noted in all areas of the myocardium. The resting images similarly demonstrate normal uptake of tracer noted in all areas of the myocardium. There was no reversibility noted suggest ischemia no infarct was noted. Gated SPECT analysis: Gated SPECT analysis of 69%. Conclusion: Normal pharmacologic myocardial perfusion stress test. Preserved ejection fraction.
--- NOTE | 2017-07-22 12:12 | PCM.DC ---
You will use the following diet at home:: Cardiac Your food should be the consistency of: Regular Your liquids should be the consistency of: Regular/Thin Discharge Activity: Return to Normal Activity May resume sexual activity in: No Restrictions Call your doctor if you observe: Fever of 101 or Higher, Shortness of breath, Dizziness, Fainting spells Additional Instructions: 1. There has been no problem with the heart rhythm.....it is normal. The lab is normal....no damage to the heart. The stress test shows that your heart squeezes normally and there is no evidence that you have any significant coronary artery disease. Your heart is fine. Prednisone is adrenaline in a pill. You have been taking high dose prednisone and this can cause insomnia, elevation in BP, racing heart sweating.....I think the event you had was a stress reaction/panic attack. I think you should discontinue the prednisone. 2. I am giving you a prescription for a drug called buspar. This treats anxiety and it is NOT ADDICTIVE. In order for it to be effective you have to take it 2-3 times a day. This can also help you stop smoking. People often smoke to control their anxiety and this is often why they are unable to quit smoking. I also recommend you follow up with the smoking cessation program at the hospital here. It is run by the respiratory therapists. 3. It was a pleasure to meet you Dorian and good luck with your ongoing efforts to take care of yourself. You have accomplished a lot and I applaud you for that. Allergies/Adverse Reactions: Allergies naproxen [From Naprosyn] Adverse Reaction (Verified 02/23/17 19:15) Upset Stomach BEE VENOM Allergy (Uncoded 02/23/17 19:15) Anaphylaxis Medications to take at Discharge Levothyroxine [Synthroid] 112 mcg PO DAILY 07/10/16 [place] Carbonate [[place] Carbonate ER] 300 mg PO DAILY 07/10/16 Albuterol Sulfate [Proventil Hfa] 6.7 gm IH Q4H PRN 10/21/16 Gabapentin [Neurontin] 900 mg PO TIDCM 10/21/16 Alprostadil [Caverject] 20 mcg SQ QMONTH 07/21/17 Buprenorphine 1 patch TD QWEEK 07/21/17 Nicotine Polacrilex [Nicorette] 4 mg PO DAILY PRN PRN 07/21/17 Nitroglycerin 0.4 mg SL PRN PRN 07/21/17 Nystatin 100,000 unit PO DAILY PRN PRN 07/21/17 Prazosin HCl 2 mg PO DAILY PRN 07/21/17 Acyclovir [Zovirax] 400 mg PO TID #42 tab 07/22/17 BusPIRone [Buspar] 5 mg PO TID #90 tab 07/22/17 The following prescriptions were given: Acyclovir [Zovirax] 400 mg PO TID #42 tab BusPIRone [Buspar] 5 mg PO TID #90 tab Primary Care Physician: Hue Ahuja MD [Primary Care Provider] - Please follow up with your Primary Care Physician in: 2 weeks Proposed Discharge Date: 07/22/17
--- NOTE | 2017-07-22 13:19 | PCM.DC.SUM ---
Discharge Date and Diagnosis Date of Admission: 07/21/17 Date of Discharge: 07/22/17 - Primary Discharge Diagnosis Active and Suspected Problems Noncardiac chest pain Reaction, drug, adverse (Acute) Panic anxiety syndrome (Acute) - Secondary Discharge Diagnosis Chronic Problems Tobacco user (Chronic) NH lymphoma (Chronic) Myocardial infarction (Chronic) Hypothyroidism (Chronic) COLD (chronic obstructive lung disease) (Chronic) Chronic hepatitis C (Chronic) Bipolar disorder (Chronic) Hospital Course and Treatment Imaging Results: Diagnostic Data Chest X-Ray 07/21/17 17:10 IMPRESSION: Minimal inferior left lung base subsegmental volume loss. Electronically Signed: Og Tipton MD at 18:23 EST , Service support , Chest CTA 07/21/17 17:52 IMPRESSION: There are calcifications of the coronary arteries. No demonstrated pulmonary embolism or arterial dissection. Electronically Signed: Saeed Caicedo MD at 20:01 EST , Service support , Operations: None Procedures: Stress test Summary of Care Provided: The patient is a 52 year old M admitted 07/21/17 due to chest pain. He has a past medical history of non-Hodgkin's lymphoma, hypothyroidism, chronic obstructive lung disease, chronic hepatitis C, bipolar disorder, history of [place], history of cocaine abuse. Acute coronary syndrome ruled out. EKG without ischemic changes. Patient underwent stress test which was negative for ischemia. Chest x-ray unremarkable. CT of chest without PE or dissection. Troponin negative. Suspect patient's symptoms of chest pain and shortness of breath are secondary to anxiety. Patient has been on prednisone for carpal tunnel syndrome which is suspected to have exacerbated his symptoms. He will discontinue this going forward. He was started on BuSpar for anxiety and also smoking cessation. He was recommended to follow-up with smoking cessation program at [facility]. Patient follows with counseling center and will continue outpatient follow-up for anxiety, bipolar disorder. Other chronic medical conditions as noted above are stable at this time. General: Alert, Oriented x3, Cooperative, No apparent distress HEENT: Atraumatic, PERRLA, EOMI Oral: Moist Mucosa, No Gingival or Mucosal Lesions/ Ulcerations Neck: Supple, No JVD, Negative Carotid Bruits Lungs: Clear to auscultation, Diminished Cardiovascular: Regular rate, Regular Rhythm, Normal S1, Normal S2, no murmur Abdomen: Bowel Sounds Present, Soft, Non Tender, Non-Distended Extremities: No clubbing, No cyanosis, No edema Skin: No rashes, No breakdown Lymphatic: No Cervical, Supraclavicular, or Inguinal Adenopathy Neurological: Cranial nerves II-XII grossly intact, Motor Exam 5/5 strength throughout Psych/Mental Status: Normal Affect, Appropriate Patient seen and examined prior to discharge. Physical assessment as noted above. Patient denies further chest pain. He is stable for discharge with the recommendations as noted above. This patient was seen by SHADE Carrillo under the supervision of Dr. Rod. Discharge Diet: Low fat/ Low Cholesterol Discharge Activity: Return to Normal Activity May resume sexual activity in: No Restrictions Call your doctor if you observe: Fever of 101 or Higher, Shortness of breath, Dizziness, Fainting spells Home Medications: Medications to take at Discharge Levothyroxine [Synthroid] 112 mcg PO DAILY 07/10/16 [place] Carbonate [[place] Carbonate ER] 300 mg PO DAILY 07/10/16 Albuterol Sulfate [Proventil Hfa] 6.7 gm IH Q4H PRN 10/21/16 Gabapentin [Neurontin] 900 mg PO TIDCM 10/21/16 Alprostadil [Caverject] 20 mcg SQ QMONTH 07/21/17 Buprenorphine 1 patch TD QWEEK 07/21/17 Nicotine Polacrilex [Nicorette] 4 mg PO DAILY PRN PRN 07/21/17 Nitroglycerin 0.4 mg SL PRN PRN 07/21/17 Nystatin 100,000 unit PO DAILY PRN PRN 07/21/17 Prazosin HCl 2 mg PO DAILY PRN 07/21/17 Acyclovir [Zovirax] 400 mg PO TID #42 tab 07/22/17 BusPIRone [Buspar] 5 mg PO TID #90 tab 07/22/17 Following Prescrptions Were Given to Patient: Acyclovir [Zovirax] 400 mg PO TID #42 tab BusPIRone [Buspar] 5 mg PO TID #90 tab Primary Care Physician: Hue Ahuja MD [Primary Care Provider] - Please follow up with your Primary Care Physician in: 2 weeks Disposition: Home Minutes spent on discharge:: 35 Patient Condition:: Stable Meaningful Use Info Meaningful Use Diagnoses (Choose all that apply): None applicable
--- NOTE | 2017-07-22 13:32 | DS.PCM_ITS ---
Discharge Date and Diagnosis Date of Admission: 07/21/17 Date of Discharge: 07/22/17 - Primary Discharge Diagnosis Active and Suspected Problems Noncardiac chest pain Reaction, drug, adverse (Acute) Panic anxiety syndrome (Acute) - Secondary Discharge Diagnosis Chronic Problems Tobacco user (Chronic) NH lymphoma (Chronic) Myocardial infarction (Chronic) Hypothyroidism (Chronic) COLD (chronic obstructive lung disease) (Chronic) Chronic hepatitis C (Chronic) Bipolar disorder (Chronic) Hospital Course and Treatment Imaging Results: Diagnostic Data Chest X-Ray 07/21/17 17:10 IMPRESSION: Minimal inferior left lung base subsegmental volume loss. Electronically Signed: Og Tipton MD at 18:23 EST , Service support , Chest CTA 07/21/17 17:52 IMPRESSION: There are calcifications of the coronary arteries. No demonstrated pulmonary embolism or arterial dissection. Electronically Signed: Saeed Caicedo MD at 20:01 EST , Service support , Operations: None Procedures: Stress test Summary of Care Provided: The patient is a 52 year old M admitted 07/21/17 due to chest pain. He has a past medical history of non-Hodgkin's lymphoma, hypothyroidism, chronic obstructive lung disease, chronic hepatitis C, bipolar disorder, history of [place], history of cocaine abuse. Acute coronary syndrome ruled out. EKG without ischemic changes. Patient underwent stress test which was negative for ischemia. Chest x-ray unremarkable. CT of chest without PE or dissection. Troponin negative. Suspect patient's symptoms of chest pain and shortness of breath are secondary to anxiety. Patient has been on prednisone for carpal tunnel syndrome which is suspected to have exacerbated his symptoms. He will discontinue this going forward. He was started on BuSpar for anxiety and also smoking cessation. He was recommended to follow-up with smoking cessation program at [facility]. Patient follows with counseling center and will continue outpatient follow-up for anxiety, bipolar disorder. Other chronic medical conditions as noted above are stable at this time. General: Alert, Oriented x3, Cooperative, No apparent distress HEENT: Atraumatic, PERRLA, EOMI Oral: Moist Mucosa, No Gingival or Mucosal Lesions/ Ulcerations Neck: Supple, No JVD, Negative Carotid Bruits Lungs: Clear to auscultation, Diminished Cardiovascular: Regular rate, Regular Rhythm, Normal S1, Normal S2, no murmur Abdomen: Bowel Sounds Present, Soft, Non Tender, Non-Distended Extremities: No clubbing, No cyanosis, No edema Skin: No rashes, No breakdown Lymphatic: No Cervical, Supraclavicular, or Inguinal Adenopathy Neurological: Cranial nerves II-XII grossly intact, Motor Exam 5/5 strength throughout Psych/Mental Status: Normal Affect, Appropriate Patient seen and examined prior to discharge. Physical assessment as noted above. Patient denies further chest pain. He is stable for discharge with the recommendations as noted above. This patient was seen by SHADE Carrillo under the supervision of Dr. Rod. Discharge Diet: Low fat/ Low Cholesterol Discharge Activity: Return to Normal Activity May resume sexual activity in: No Restrictions Call your doctor if you observe: Fever of 101 or Higher, Shortness of breath, Dizziness, Fainting spells Home Medications: Medications to take at Discharge Levothyroxine [Synthroid] 112 mcg PO DAILY 07/10/16 [place] Carbonate [[place] Carbonate ER] 300 mg PO DAILY 07/10/16 Albuterol Sulfate [Proventil Hfa] 6.7 gm IH Q4H PRN 10/21/16 Gabapentin [Neurontin] 900 mg PO TIDCM 10/21/16 Alprostadil [Caverject] 20 mcg SQ QMONTH 07/21/17 Buprenorphine 1 patch TD QWEEK 07/21/17 Nicotine Polacrilex [Nicorette] 4 mg PO DAILY PRN PRN 07/21/17 Nitroglycerin 0.4 mg SL PRN PRN 07/21/17 Nystatin 100,000 unit PO DAILY PRN PRN 07/21/17 Prazosin HCl 2 mg PO DAILY PRN 07/21/17 Acyclovir [Zovirax] 400 mg PO TID #42 tab 07/22/17 BusPIRone [Buspar] 5 mg PO TID #90 tab 07/22/17 Following Prescrptions Were Given to Patient: Acyclovir [Zovirax] 400 mg PO TID #42 tab BusPIRone [Buspar] 5 mg PO TID #90 tab Primary Care Physician: Hue Ahuja MD [Primary Care Provider] - Please follow up with your Primary Care Physician in: 2 weeks Disposition: Home Minutes spent on discharge:: 35 Patient Condition:: Stable Meaningful Use Info Meaningful Use Diagnoses (Choose all that apply): None applicable
== END 2017-07-22 12:32 | disposition home or self-care (01) ==
LOC: ED 18:13 → PCU 21:46
PROVIDERS: Admitting Provider Hospitalist; Emergency Provider Emergency Medicine; Family Provider Internal Medicine; PCP Internal Medicine; Visit Provider Internal Medicine
DX: R07.89 Other chest pain (principal); R42 Dizziness and giddiness; R06.02 Shortness of breath; B02.9 Zoster without complications; I25.10 Atherosclerotic heart disease of native coronary artery without angina pectoris; C85.90 Non-Hodgkin lymphoma, unspecified, unspecified site; I25.2 Old myocardial infarction; J44.9 Chronic obstructive pulmonary disease, unspecified; B18.2 Chronic viral hepatitis C; F31.9 Bipolar disorder, unspecified; E03.9 Hypothyroidism, unspecified; Z79.899 Other long term (current) drug therapy; Z79.1 Long term (current) use of non-steroidal anti-inflammatories (NSAID); F17.200 Nicotine dependence, unspecified, uncomplicated; F43.10 Post-traumatic stress disorder, unspecified; F10.21 Alcohol dependence, in remission
CPT/HCPCS: 36415; 71045; 71275; 78452; 80048; 84484; 85025; 85379; 85610; 85730; 93005; 93017; 94640; 96361; 96374; 96375; 96376; 97802; 99218; 99285; 99406; A9500; J7030; Q9967; A4216; G0378; J2405; J2785

== ENCOUNTER → 2017-10-21 17:42 | Outpatient (CLI) | payer MEDICAID, SELFPAY ==
--- NOTE | 2017-10-21 18:15 | MRI_ITS ---
STUDY: MRI LUMBAR SPINE WITHOUT CONTRAST REASON FOR EXAM: Male, 52 years old. Severe low back pain. TECHNIQUE: Standardized fat and water weighted pulse sequences were obtained in the sagittal and axial planes. 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 T12-L1: Normal endplates. Normal disc height, signal and morphology. Normal bilateral facet joints. Normal central canal and bilateral lateral recesses. Normal bilateral intervertebral neural foramina. Normal lumbar lordosis. There is no substantial scoliosis. Normal conus medullaris that terminates at the T12-L1. L1-2: Normal endplates. Normal disc height, signal and morphology. Normal bilateral facet joints. Normal central canal and bilateral lateral recesses. Normal bilateral intervertebral neural foramina. L2-3: Normal endplates. Normal disc height, signal and morphology. Normal bilateral facet joints. Normal central canal and bilateral lateral recesses. Normal bilateral intervertebral neural foramina. L3-4: There is mild annular disk bulge and osteophyte complex. There is mild degenerative arthropathy of the facet joints. Bilateral neuroforamina are narrowed without MR evidence for nerve impingement. There is no significant central canal stenosis. L4-5: There is mild annular disk bulge and osteophyte complex. There is mild degenerative arthropathy of the facet joints. Bilateral neuroforamina are narrowed without MR evidence for nerve impingement. There is mild central canal stenosis. L5-S1: There is mild annular disk bulge and osteophyte complex. There is mild degenerative arthropathy of the facet joints. Bilateral neuroforamina are narrowed without MR evidence for nerve impingement. There is no significant central canal stenosis. There appears to be congenitally small spinal canal at this level. Normal visualized sacral ala. Normal visualized paraspinous soft tissue structures. MRI/Spine Lumbar (Routine) IMPRESSION: Multilevel degenerative disc disease and degenerative arthropathy of the lumbar spine with neural foraminal narrowing and acquired canal stenosis, as described. Electronically Signed: Racheal Kirby MD at 8:39 EDT , Service support ,
== END ==
PROVIDERS: Family Provider Internal Medicine; PCP Internal Medicine; Visit Provider Nurse Practitioner Family
DX: M51.16 Intervertebral disc disorders with radiculopathy, lumbar region (principal); M46.96 Unspecified inflammatory spondylopathy, lumbar region
CPT/HCPCS: 72148

== ENCOUNTER 2017-10-23 13:59 | Emergency (ER) | payer MEDICAID, SELFPAY ==
[2017-10-23 14:00] VITALS: BP 141/91; PULSE 105; RESP 18; TEMP 36.6; O2SAT 98; BMI 29.8
--- NOTE | 2017-10-23 14:39 | EKG12_ITS ---
Test Reason : CP Blood Pressure : / mmHG Vent. Rate : 078 BPM Atrial Rate : 078 BPM P-R Int : 126 ms QRS Dur : 084 ms QT Int : 374 ms P-R-T Axes : 030 075 028 degrees QTc Int : 426 ms Normal sinus rhythm Normal ECG Confirmed by GALLITO PALUMBO MD ([id number]), editor producer OSCAR QUEZADA ([id number]) on 10/25/2017 3:04:29 PM Referred By: Sondra Copeland Confirmed By:GALLITO PALUMBO MD
[2017-10-23] MEDS: Acetaminophen 500 MG Tablet 1000 MG PO (15:02)
[2017-10-23] MEDS: 0.9% Normal Saline 1,000 ML 150 ML IV (15:02)
[2017-10-23 15:04] LABS: Absolute Lymphocyte Count 3.73 X10^3/ul (0.83-4.51); Absolute Neutrophil Count 14.3 X10^3/uL (2.0-7.7); Basophil# 0.05 X10^3/uL; Basophil% 0.3 % (0-1); Eosinophil# 0.26 X10^3/uL; Eosinophils% 1.3 % (0-5); Hematocrit 47.6 % (40-54); Hemoglobin 16.7 g/dl (13.0-16.5); Lymphocyte # 3.73 X10^3/ul (4.0); Lymphocyte % 18.8 % (19-41); Mean Corp Hgb Conc 35.1 g/gl (32-36); Mean Corpuscular Hgb 32.4 pg (27.0-32.0); Mean Corpuscular Volume 92.2 fL (80-94); Mean Platelet Vol. 8.5 fl (6.2-12.0); Monocyte# 1.43 X10^3/uL; Monocyte% 7.2 % (0-10); Neutrophil # 14.28 X10^3/uL (2.7-7.7); POSITIVE COUNT NO; POSITIVE DIFFERENTIAL NO; POSITIVE MORPHOLOGY NO; Platelet Count 335 K/mm3 (150-450); RBC Distribution Width CV 12.3 % (11.6-14.6); Red Blood Count 5.16 M/mm3 (4.6-6.2); White Blood Count 19.8 K/mm3 (4.4-11.0)
[2017-10-23 15:35] LABS: Anion Gap 10 (5-15); BUN 11 mg/dL (7-18); BUN/Creat Ratio 12.8 RATIO (10-20); Calcium,Total 8.4 mg/dL (8.5-10.1); Chloride 107 mmol/L (98-107); Creatinine, Serum 0.86 mg/dL (0.70-1.30); EST Glomerular Filtration Rate 100 mL/min (>60); Est Glom Filt Rate - Afr Amer 121 mL/min (>60); Estimated Creatinine Clearance 92.73 ml/min; Glucose 92 mg/dL (74-106); Sodium Level 144 mmol/L (136-145)
--- NOTE | 2017-10-23 15:40 | RAD_ITS ---
STUDY: X-RAY CHEST REASON FOR EXAM: Male, 52 years old. Chest pain TECHNIQUE: Frontal and lateral views of the chest COMPARISON: 03/17/2017 FINDINGS: There is linear atelectasis at the left lung base. The lungs are otherwise clear. There are no pleural effusions. There is no pneumothorax. The heart is normal in size. The visualized osseous structures are within normal limits. RAD/Chest PA and Lateral IMPRESSION: No acute thoracic pathology. Electronically Signed: Scotty Hensley, at 15:59 EDT Tel , Service support ,
--- NOTE | 2017-10-23 16:00 | EKG12_ITS ---
Test Reason : DYSRHYTHMIA Blood Pressure : / mmHG Vent. Rate : 080 BPM Atrial Rate : 080 BPM P-R Int : 126 ms QRS Dur : 086 ms QT Int : 358 ms P-R-T Axes : 033 074 026 degrees QTc Int : 412 ms Normal sinus rhythm Normal ECG Confirmed by LINWOOD MOHAN, GALLITO ([id number]), science editor OSCAR QUEZADA ([id number]) on 10/25/2017 3:05:01 PM Referred By: Sondra Copeland Confirmed By:GALLITO PALUMBO MD
[2017-10-23 16:04] VITALS: BP 116/81; PULSE 93; RESP 18; O2SAT 97
[2017-10-23 16:20] LABS: Lithium < 0.20 mmol/L (0.60-1.20)
--- NOTE | 2017-10-23 16:40 | ED.VISSUMM ---
- ER Visit Summary Date of Service: 10/23/17 Chief Complaint: Fever History of Present Illness: The patient is a [address] Ahuja. He reports she has a fever that began yesterday. Spent 102?. He is congested and has a cough is productive green sputum without blood. Reports he had severe shortness of breath this morning until he had a coughing episode and it is now mild. She improved with albuterol. States that he has a sharp, stabbing chest pain that has been present for 1 week. It is 8 out of 10 at worst and 410 currently. Is taken nitro without relief. Reports it is increased with walking or coughing. Does report a short of breath and diaphoretic. Denies any nausea or vomiting. Physical Examination: Vitals: Stable. Afebrile. General: Well-nourished and well-developed. Head: Normocephalic atraumatic. Neck: Supple, no lymphadenopathy. No JVD. Nontender. Cardiovascular: Regular rate and rhythm. No murmurs. Respiratory: No respiratory distress. Clear to auscultation bilaterally. Moderate tenderness palpation over the left costochondral margin that does reproduce his pain. Abdominal: Soft, nontender, nondistended, normal bowel sounds. No guarding, rebound, or peritoneal signs. Back: Nontender. Extremities: Nontender, no edema. 2+ radial pulse bilaterally. Minimal if any swelling to his hands bilaterally. No lower extremity edema. Skin: Normal color, no rash. Neurologic: Alert and oriented ?3. Cranial nerves II through XII are intact. Normal strength and sensation. Psych: Normal affect. Test Results: EKG is sinus at 80 with no acute changes. Is unchanged from July of this year. Repeat EKG is unchanged. This was during a period when the patient's pain had worsened. Troponin is negative. Chem-7 is more for calcium of 8.4. CBC is remarkable for a white count of 19.8, hemoglobin 16.7, segmented neutrophils of 72, lymphocytes of 19. His white count has been 13.4-22 since November of last year. [place] level is less than 0.2. Chest x-ray is normal. Emergency Department Course and Treatment: Patient was treated with Tylenol and is resting comfortably. I reviewed the patient's prior records. He had a stress test in July of this year that was normal. His pain is very atypical and I do not think that any stick inserter would do a heart catheterization. He also had a CT of the chest at that time that was normal. His pain is reproducible with palpation and he has a cough. Treatment Plan: Patient be discharged symptomatic care. Push fluids. Continue uses albuterol MDI. Follow-up Dr. Ahuja and 3-5 days if not improving. Return to the emergency department for any worsening symptoms. Disposition: To home in improved and stable condition. Impression: 1. Atypical chest pain. 2. Leukocytosis, uncertain cause. 3. URI. 4. Tobacco abuse. This note was generated with [email or web address] dictation software. It may contain incorrect words, spelling, and punctuation that were not noted in review of the chart prior to signing ED Disposition - Plan for ED Patient: Chief Complaint: Edema Instructions: ED Chest Pain Atypical Unkn Cause Prescriptions: Prednisone [Deltasone] 40 mg PO DAILY #10 tablet Referrals: Hue Ahuja MD [Primary Care Provider] - 3-5 Days if not improving
--- NOTE | 2017-10-23 16:44 | ED.DCSUM_ITS ---
- ER Visit Summary Date of Service: 10/23/17 Chief Complaint: Fever History of Present Illness: The patient is a [address] Ahuja. He reports she has a fever that began yesterday. Spent 102?. He is congested and has a cough is productive green sputum without blood. Reports he had severe shortness of breath this morning until he had a coughing episode and it is now mild. She improved with albuterol. States that he has a sharp, stabbing chest pain that has been present for 1 week. It is 8 out of 10 at worst and 410 currently. Is taken nitro without relief. Reports it is increased with walking or coughing. Does report a short of breath and diaphoretic. Denies any nausea or vomiting. Physical Examination: Vitals: Stable. Afebrile. General: Well-nourished and well-developed. Head: Normocephalic atraumatic. Neck: Supple, no lymphadenopathy. No JVD. Nontender. Cardiovascular: Regular rate and rhythm. No murmurs. Respiratory: No respiratory distress. Clear to auscultation bilaterally. Moderate tenderness palpation over the left costochondral margin that does reproduce his pain. Abdominal: Soft, nontender, nondistended, normal bowel sounds. No guarding, rebound, or peritoneal signs. Back: Nontender. Extremities: Nontender, no edema. 2+ radial pulse bilaterally. Minimal if any swelling to his hands bilaterally. No lower extremity edema. Skin: Normal color, no rash. Neurologic: Alert and oriented ?3. Cranial nerves II through XII are intact. Normal strength and sensation. Psych: Normal affect. Test Results: EKG is sinus at 80 with no acute changes. Is unchanged from July of this year. Repeat EKG is unchanged. This was during a period when the patient's pain had worsened. Troponin is negative. Chem-7 is more for calcium of 8.4. CBC is remarkable for a white count of 19.8, hemoglobin 16.7, segmented neutrophils of 72, lymphocytes of 19. His white count has been 13.4- 22 since November of last year. [place] level is less than 0.2. Chest x-ray is normal. Emergency Department Course and Treatment: Patient was treated with Tylenol and is resting comfortably. I reviewed the patient's prior records. He had a stress test in July of this year that was normal. 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 He also had a CT of the chest at that time that was normal. His pain is reproducible with palpation and he has a cough. Treatment Plan: Patient be discharged symptomatic care. Push fluids. Continue uses albuterol MDI. Follow-up Dr. Ahuja and 3-5 days if not improving. Return to the emergency department for any worsening symptoms. Disposition: To home in improved and stable condition. Impression: 1. Atypical chest pain. 2. Leukocytosis, uncertain cause. 3. URI. 4. Tobacco abuse. This note was generated with [employer] dictation software. It may contain incorrect words, spelling, and punctuation that were not noted in review of the chart prior to signing ED Disposition - Plan for ED Patient: Chief Complaint: Edema Instructions: ED Chest Pain Atypical Unkn Cause Prescriptions: Prednisone [Deltasone] 40 mg PO DAILY #10 tablet Referrals: Hue Ahuja MD [Primary Care Provider] - 3-5 Days if not improving
[2017-10-23] MEDS: predniSONE 20 MG Tablet 40 MG PO (16:54)
[2017-10-23 17:01] VITALS: BP 100/70; PULSE 79; RESP 18; O2SAT 98
== END 2017-10-23 17:03 | disposition home or self-care (01) ==
LOC: ED 16:01
PROVIDERS: Emergency Provider Emergency Medicine; Family Provider Internal Medicine; PCP Internal Medicine
DX: R07.89 Other chest pain (principal); D72.829 Elevated white blood cell count, unspecified; J06.9 Acute upper respiratory infection, unspecified; F17.200 Nicotine dependence, unspecified, uncomplicated; R06.00 Dyspnea, unspecified; R61 Generalized hyperhidrosis; J44.9 Chronic obstructive pulmonary disease, unspecified; F31.9 Bipolar disorder, unspecified; F43.10 Post-traumatic stress disorder, unspecified; E03.9 Hypothyroidism, unspecified; Z86.19 Personal history of other infectious and parasitic diseases; Z79.899 Other long term (current) drug therapy
CPT/HCPCS: 36415; 71046; 80048; 80178; 84484; 85025; 93005; 96360; 96361; 99284; J7030

== ENCOUNTER 2017-11-07 12:47 | Emergency (ER) | payer MEDICAID, SELFPAY ==
--- NOTE | 2017-11-07 12:47 | DT_ITS ---
This patient was seen during an EMR downtime November 07, 2017 - November 14, 2017. This patient may have a combination of paper and electronic documentation or all paper documentation. All documentation is viewable within the e-chart portion of [facility] for each patient visit.
--- NOTE | 2017-11-07 14:23 | RAD_ITS ---
STUDY: X-RAY - RIGHT HAND REASON FOR EXAM: Laceration anterior aspect of the fifth digit. TECHNIQUE: 3 view(s) of the hand. COMPARISON: None. FINDINGS: Normal radiocarpal articulation. Normal distal radioulnar joint. Normal visualized carpal bones. Normal carpal articulations Normal carpometacarpal articulation of the thumb. Normal second through fifth carpometacarpal joints. There is chronic healed fracture deformity of the distal fifth metacarpal diaphysis. Normal metacarpophalangeal joint of the thumb. Normal interphalangeal joint of the thumb. Normal proximal and distal phalanges of the thumb. Normal metacarpophalangeal joints of the second through fifth fingers. Normal proximal and distal interphalangeal joints of the second through fifth fingers. Normal phalanges of the second through fifth fingers. The soft tissue structures are unremarkable. RAD/Hand Min 3 Views IMPRESSION: Chronic healed fracture deformity of the fifth metacarpal. No demonstrated radiopaque foreign body. Electronically Signed: Thang Sesay MD at 12:46 EDT Tel , Service support ,
== END 2017-11-07 15:22 | disposition home or self-care (01) ==
LOC: ED 11-09 12:57
PROVIDERS: Emergency Provider Emergency Medicine; Family Provider Internal Medicine; PCP Internal Medicine
DX: S61.216A Laceration without foreign body of right little finger without damage to nail, initial encounter (principal); S60.221A Contusion of right hand, initial encounter; W22.8XXA Striking against or struck by other objects, initial encounter; Y93.9 Activity, unspecified; Y92.9 Unspecified place or not applicable; I25.2 Old myocardial infarction; J44.9 Chronic obstructive pulmonary disease, unspecified; Z86.19 Personal history of other infectious and parasitic diseases; I20.9 Angina pectoris, unspecified; G40.909 Epilepsy, unspecified, not intractable, without status epilepticus; F17.210 Nicotine dependence, cigarettes, uncomplicated; E03.9 Hypothyroidism, unspecified; F43.10 Post-traumatic stress disorder, unspecified; F41.0 Panic disorder [episodic paroxysmal anxiety]; Z79.899 Other long term (current) drug therapy
CPT/HCPCS: 12001; 73130; 90471; 90715; 99285

== ENCOUNTER 2017-12-21 14:39 | Emergency (ER) | payer MEDICAID, SELFPAY ==
[2017-12-21 14:40] VITALS: BP 138/85; PULSE 114; RESP 18; TEMP 36.6; O2SAT 99; BMI 29.9
--- NOTE | 2017-12-21 15:18 | ED.DCSUM_ITS ---
- ER Visit Summary Date of Service: 12/21/17 Chief Complaint: Left shoulder pain History of Present Illness: The patient is a 52 M presenting with left shoulder pain. 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 He states he was trying to pull a thistle out of the ground and felt a pull in his left shoulder. He has pain in his left shoulder. He has tried ice and heat at home. He is on ibuprofen and Neurontin per his pain management physician. Denies other injury. Physical Examination: Vitals are stable. Patient is afebrile. Alert no acute distress. HEENT exam is unremarkable. Neck is supple. Lungs are clear and equal bilaterally. Heart is regular rate and rhythm. Extremities diffuse left shoulder tenderness with painful range of motion, neurovascularly intact distally Skin is warm and dry. No focal neurologic deficit. Remainder of exam is unremarkable. Emergency Department Course and Treatment: Ice pack was applied. Patient is given morphine, Zofran. X-ray left shoulder shows Type II left AC joint separation. He was given a sling. He is advised to follow-up with Dr. Branham and his pain management physician. Advised return to ED for worsening complaints. Disposition: Discharged home Impression: Left AC joint separation This note was generated with [employer] dictation software. It may contain incorrect words, spelling, and punctuation that were not noted in review of the chart prior to signing ED Disposition - Plan for ED Patient: Chief Complaint: Upper Extremity Injury Instructions: ED Sprain AC Joint Referrals: Hue Ahuja MD [Primary Care Provider] - Neil Branham DO [STAFF PHYSICIAN] -
--- NOTE | 2017-12-21 15:33 | RAD_ITS ---
STUDY: X-RAY - LEFT SHOULDER REASON FOR EXAM: Male, 52 years old. Shoulder pain following injury. TECHNIQUE: 4 view(s) of the shoulder. COMPARISON: None. FINDINGS: Normal glenohumeral articulation. There is no widening of the coracoclavicular distance. There is widening of the AC joint, but without displacement of the clavicle or widening of the coracoclavicular distance, consistent with a Type II acromioclavicular joint separation. Normal acromion. Normal humeral head and visualized proximal humerus. The soft tissue structures are unremarkable. Normal visualized pulmonary apex. RAD/Shoulder min 2 Views IMPRESSION: Type II left AC joint separation. Electronically Signed: Davis Honeycutt MD at 15:59 EDT Tel [phone], Service support ,
--- NOTE | 2017-12-21 16:10 | ED.DEP ---
ED Disposition - Plan for ED Patient: Chief Complaint: Upper Extremity Injury Instructions: ED Sprain AC Joint Referrals: Hue Ahuja MD [Primary Care Provider] - Neil Branham DO [STAFF PHYSICIAN] -
[2017-12-21] MEDS: Ondansetron ODT 4 MG Tablet PO (16:40)
[2017-12-21] MEDS: morphine 10 MG/ML Syringe SC (16:40)
== END 2017-12-21 17:02 | disposition home or self-care (01) ==
PROVIDERS: Emergency Provider Emergency Medicine; Family Provider Internal Medicine; PCP Internal Medicine
DX: S43.102A Unspecified dislocation of left acromioclavicular joint, initial encounter (principal); X50.9XXA Other and unspecified overexertion or strenuous movements or postures, initial encounter; Y93.H2 Activity, gardening and landscaping; Y92.9 Unspecified place or not applicable; Y99.0 Civilian activity done for income or pay; Z72.0 Tobacco use; Z79.52 Long term (current) use of systemic steroids; Z79.899 Other long term (current) drug therapy
CPT/HCPCS: 73030; 96372; 99283

== ENCOUNTER 2018-01-09 22:33 | Emergency (ER) | payer MEDICAID, SELFPAY ==
[2018-01-09 22:34] VITALS: BP 137/88; PULSE 93; RESP 18; TEMP 36.6; O2SAT 98; BMI 29.7
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
[2018-01-09] MEDS: Triamcinolone Acetonide 40 MG/ML Vial IM (23:16)
[2018-01-09 23:30] VITALS: RESP 18
[2018-01-09] MEDS: oxyCODONE 5 MG Tablet PO (23:30)
== END 2018-01-09 23:31 | disposition home or self-care (01) ==
PROVIDERS: Emergency Provider Emergency Medicine; Family Provider Internal Medicine; PCP Internal Medicine
DX: M75.42 Impingement syndrome of left shoulder (principal); S43.102A Unspecified dislocation of left acromioclavicular joint, initial encounter; X58.XXXA Exposure to other specified factors, initial encounter; Y93.9 Activity, unspecified; Y92.9 Unspecified place or not applicable; Y99.9 Unspecified external cause status; Z72.0 Tobacco use; Z79.899 Other long term (current) drug therapy
CPT/HCPCS: 96372; 99283

== ENCOUNTER 2018-01-14 08:42 | Emergency (ER) | payer MEDICAID, SELFPAY ==
[2018-01-14 08:43] VITALS: BP 123/81; PULSE 96; RESP 15; TEMP 36.4; O2SAT 97; BMI 29.9
--- NOTE | 2018-01-14 08:51 | RAD_ITS ---
STUDY: X-RAY - PELVIS AND RIGHT HIP REASON FOR EXAM: Male, 52 years old. Injury, pain TECHNIQUE: Radiological exam, hip, unilateral, with pelvis when performed; 2 or 3 views. COMPARISON: 05/10/2017 FINDINGS: There is a noncemented left hip replacement. There is osteonecrosis at the right femoral head with evidence of mild articular collapse. The joint space is well-maintained. The symphysis pubis and SI joints are intact. There is no acute fracture. There is no osseous destruction. RAD/HIP, UNI W/ Pelvis 2-3 Views IMPRESSION: Osteonecrosis, right femoral head, essentially unchanged Noncemented left hip arthroplasty Electronically Signed: Scotty Ferguson MD at 9:37 EDT Tel , Service support ,
[2018-01-14] MEDS: Ondansetron 4 MG/2 ML Vial IV (09:13)
[2018-01-14] MEDS: Morphine 4 MG/ML Syringe IV (09:13)
--- NOTE | 2018-01-14 09:32 | ED.RN ---
[facility] FROM [facility] CALLED STATING THEY HAD EXTRA BLOOD TUBES ON THIS PATIENT. SP[facility] ALSO STATED THAT ALL OF THE BLOOD WAS HEMOLYZED SO IF THERE ARE ORDERS, THEY MUST BE REDRAWN.
--- NOTE | 2018-01-14 09:40 | MRI_ITS ---
STUDY: MRI RIGHT HIP REASON FOR EXAM: Male, 52 years old. Severe right hip pain radiating to the groin TECHNIQUE: Standardized fat and water weighted pulse sequences were obtained in all 3 orthogonal planes. COMPARISON: X-ray January 14, 2018 FINDINGS: There is moderate articular narrowing of the hip joint, with greater than 50% loss of the hyaline cartilage. There is curvilinear diminished subchondral signal of the right femoral head with avascular necrosis, series 4 images 15/ through . There is mild flattening of the femoral head and mild spurring. Normal acetabulum. There is tearing of the anterior superior labrum, series 8 image 13/24 . Normal femoral neck and intratrochanteric region. There is left hip replacement with associated susceptibility artifact. Normal gluteus minimus, medius and iliopsoas tendons and distal insertions. There is no trochanteric, iliopsoas or iliopectineal bursitis. Normal superior and inferior pubic rami. Normal pubic symphysis. Normal ischial tuberosity. Normal origin of the hamstring tendons. Normal visualized iliac wing, sacroiliac joint, and sacral ala. Normal visualized soft tissue structures of the pelvis. MRI/Lower Ext Joint Only (Routine) IMPRESSION: Avascular necrosis of the right femoral head. There is degenerative change with tearing of the acetabular labrum Electronically Signed: Atul Keller MD at 11:59 EDT , Service support ,
--- NOTE | 2018-01-14 10:13 | ED.VISSUMM ---
- ER Visit Summary Date of Service: 01/14/18 Chief Complaint: Right hip pain status post fall History of Present Illness: The patient is a 52 M who was in a hurry yesterday. He slipped while taking a shower. He reported pain and limp after the fall. He states this morning he awoke in severe pain. Minimal movement causes him discomfort which he localizes to the inguinal greater trochanteric region. He states he is unable to bear weight. He is status post total hip arthroplasty left secondary to avascular necrosis. He reports he had experimental surgery on the right side because of concern for avascular necrosis. He denied head trauma. He denies neck pain. He denies paresthesia, anesthesia or motor weakness. He denies any cardiac respiratory symptoms. He denies nausea, vomiting diarrhea. He denies hematuria. He denies any radicular pain. Physical Examination: Vital signs are unremarkable. They are not normal. He appears uncomfortable. Head is atraumatic normocephalic. Pupils are equal round reactive. Extraocular muscles are intact. TMs are pearly white with landmarks noted. Nares patent with no drainage. Posterior pharynx without erythema or exudate. Uvula is midline. There is no dysphonia or dysphasia. Trachea is midline. There is no stridor with auscultation of the neck. Heart is regular without murmur, gallop or rub. S1 and S2 are normal. Lungs are clear to auscultation with good movement of air bilaterally. There is no pain palpation of the pelvic bones. There is pain the patient of the greater trochanteric region and he complains of inguinal pain with internal/external rotation of the right lower externally. Right lower extremity is not shortened. There is a palpable DP and PT pulse. There is no evidence of trauma to the hip, knee or ankle. GCS is 15. Patient is alert and oriented ?3. Motor is 5/5. Sensation is intact. DTRs are symmetric without clonus or Babinski. Cranial nerves II through XII are intact. Finger to nose to finger was performed adequately. Test Results: Three-view x-ray of the hip was obtained which reveals minimal arthritic changes on the right. There is no fracture noted of the femur, femoral neck or pelvis. MRI of the hip joint reveals degenerative changes and there is a tear of the acetabular labrum. Also there is evidence of avascular necrosis of the femoral head. Emergency Department Course and Treatment: IV was established he was medicated with Zofran and morphine. X-ray was obtained to evaluate for fracture. Since he will not bear weight has pain with logrolling MRI was obtained to rule out occult fracture or other etiology of his pain and inability to ambulate. Treatment Plan: Opiate analgesia, crutches, weight bear as tolerated and referral to orthopedist. Disposition: Discharge to home with outpatient orthopedic follow-up Impression: 1. Tear acetabular labrum with degenerative changes 2. Avascular necrosis femoral head right This note was generated with [employer] dictation software. It may contain incorrect words, spelling, and punctuation that were not noted in review of the chart prior to signing ED Disposition - Plan for ED Patient: Disposition: Home or Assisted Living Chief Complaint: Lower Extremity Injury Instructions: ED Necrosis Avascular Femoral Head Prescriptions: Hydrocodone Bitart/Apap 5-325 [[place] 5MG-325MG] 1 tablet PO Q6H PRN PRN 3 Days #10 tablet PRN Reason: Pain Referrals: Hue Ahuja MD [Primary Care Provider] - Car Iniguez DO [STAFF PHYSICIAN] - 3-5 Days
--- NOTE | 2018-01-14 10:16 | ED.DCSUM_ITS ---
- ER Visit Summary Date of Service: 01/14/18 Chief Complaint: Right hip pain status post fall History of Present Illness: The patient is a 52 M who was in a hurry yesterday. He slipped while taking a shower. He reported pain and limp after the fall. He states this morning he awoke in severe pain. Minimal movement causes him discomfort which he localizes to the inguinal greater trochanteric region. He states he is unable to bear weight. He is status post total hip arthroplasty left secondary to avascular necrosis. He reports he had experimental surgery on the right side because of concern for avascular necrosis. He denied head trauma. He denies neck pain. He denies paresthesia, anesthesia or motor weakness. He denies any cardiac respiratory symptoms. He denies nausea, vomiting diarrhea. He denies hematuria. He denies any radicular pain. Physical Examination: Vital signs are unremarkable. They are not normal. He appears uncomfortable. Head is atraumatic normocephalic. Pupils are equal round reactive. Extraocular muscles are intact. TMs are pearly white with landmarks noted. Nares patent with no drainage. Posterior pharynx without erythema or exudate. Uvula is midline. There is no dysphonia or dysphasia. Trachea is midline. There is no stridor with auscultation of the neck. Heart is regular without murmur, gallop or rub. S1 and S2 are normal. Lungs are clear to auscultation with good movement of air bilaterally. There is no pain palpation of the pelvic bones. There is pain the patient of the greater trochanteric region and he complains of inguinal pain with internal/external rotation of the right lower externally. Right lower extremity is not shortened. There is a palpable DP and PT pulse. There is no evidence of trauma to the hip, knee or ankle. GCS is 15. Patient is alert and oriented ? 3. Motor is 5/5. Sensation is intact. DTRs are symmetric without clonus or Babinski. Cranial nerves II through XII are intact. Finger to nose to finger was performed adequately. Test Results: Three-view x-ray of the hip was obtained which reveals minimal arthritic changes on the right. There is no fracture noted of the femur, femoral neck or pelvis. MRI of the hip joint reveals degenerative changes and there is a tear of the acetabular labrum. Also there is evidence of avascular necrosis of the femoral head. Emergency Department Course and Treatment: IV was established he was medicated with Zofran and morphine. X-ray was obtained to evaluate for fracture. Since he will not bear weight has pain with logrolling MRI was obtained to rule out occult fracture or other etiology of his pain and inability to ambulate. Treatment Plan: Opiate analgesia, crutches, weight bear as tolerated and referral to orthopedist. Disposition: Discharge to home with outpatient orthopedic follow-up Impression: 1. Tear acetabular labrum with degenerative changes 2. Avascular necrosis femoral head right This note was generated with [employer] dictation software. It may contain incorrect words, spelling, and punctuation that were not noted in review of the chart prior to signing ED Disposition - Plan for ED Patient: Disposition: Home or Assisted Living Chief Complaint: Lower Extremity Injury Instructions: ED Necrosis Avascular Femoral Head Prescriptions: Hydrocodone Bitart/Apap 5-325 [[place] 5MG-325MG] 1 tablet PO Q6H PRN PRN 3 Days # 10 tablet PRN Reason: Pain Referrals: Hue Ahuja MD [Primary Care Provider] - Car Iniguez DO [STAFF PHYSICIAN] - 3-5 Days
[2018-01-14] MEDS: Ketorolac 30 MG/ML Syringe IV (11:42)
[2018-01-14 12:41] VITALS: BP 121/76; PULSE 91; RESP 16; O2SAT 96
== END 2018-01-14 12:54 | disposition home or self-care (01) ==
PROVIDERS: Emergency Provider Emergency Medicine; Family Provider Internal Medicine; PCP Internal Medicine
DX: S73.191A Other sprain of right hip, initial encounter (principal); M87.051 Idiopathic aseptic necrosis of right femur; S73.101A Unspecified sprain of right hip, initial encounter; W18.2XXA Fall in (into) shower or empty bathtub, initial encounter; Y93.E1 Activity, personal bathing and showering; Y92.9 Unspecified place or not applicable; Y99.9 Unspecified external cause status; E03.9 Hypothyroidism, unspecified; I25.10 Atherosclerotic heart disease of native coronary artery without angina pectoris; J44.9 Chronic obstructive pulmonary disease, unspecified; F31.9 Bipolar disorder, unspecified; I25.2 Old myocardial infarction; Z79.899 Other long term (current) drug therapy; Z96.642 Presence of left artificial hip joint
CPT/HCPCS: 73502; 73721; 96374; 96375; 99285; A4216; J2405

== ENCOUNTER → 2018-03-28 14:36 | Outpatient (CLI) | payer MEDICAID, SELFPAY ==
--- NOTE | 2018-03-28 14:37 | RAD_ITS ---
STUDY: X-RAY - LEFT KNEE REASON FOR EXAM: Lateral knee pain radiating to the back of the knee from injury. TECHNIQUE: 4 view(s) of the knee. COMPARISON: Radiographs 10/07/2016. FINDINGS: There is osteonecrosis of the distal femur and proximal tibia without interval change. Normal proximal tibiofibular articulation. Normal medial femorotibial compartment. Normal lateral femorotibial compartment. Normal patellofemoral articulation. The soft tissue structures are unremarkable. RAD/Knee 4 or More Views IMPRESSION: Osteonecrosis of the distal femur and proximal tibia without interval change. Electronically Signed: Thang Sesay MD at 11:40 EDT Tel , Service support ,
== END ==
PROVIDERS: Family Provider Internal Medicine; PCP Internal Medicine; Referring Provider Orthopaedic Surgery; Visit Provider Orthopaedic Surgery
DX: M25.562 Pain in left knee (principal)
CPT/HCPCS: 73564

== ENCOUNTER 2018-04-07 09:37 | Day surgery (SDC) | payer MEDICAID, SELFPAY ==
[2018-04-06 09:53] VITALS: BMI 28.8
--- NOTE | 2018-04-07 11:15 | CL.D_ITS ---
Patient Name: VITA MAYORGA Study Date: 04/07/2018 Performing: Dk Shannon MD Ht: 66.14 inches 168 cm : 1965 Wt: 178.57 lbs 81 kg Age: 52 Gender: male BSA: 1.91 PROCEDURE(S) PERFORMED DX24-NQL/COR/LV CLINICAL PROFILE AND INDICATIONS Indications: Suspected CAD Heart Failure: None Stress/Imaging Stress Test w/SPECT MPI: Yes Result: NegativeStress Test with SPECT MPI: Negative CAD Presentations: Symptom unlikely to be ischemic. CONCLUSIONS Normal coronary arteries Normal LV size, wall motion,and systolic function RECOMMENDATIONS Medical therapy DESCRIPTION OF PROCEDURE The patient arrived to the procedure lab. The risks and benefits of the procedure as well as a full d escription of our services here and current unavailability of surgical backup were fully explained to the patient and/or their significant other prior to the catheterization. The Timeout was completed, verifying the correct patient and procedure. The patient's procedural site was prepped and draped in the usual fashion. Local anesthetic was given subcutaneously to right radial region with Lidocaine 2% . Using a modified Seldinger technique, arterial access was obtained via the right radial artery, a 6 Fr sheath was inserted. Right Coronary Artery selective angiography was then performed in multiple v iews using a 5 Fr. 4.0 Trinidad catheter. Left Coronary Artery selective angiography was performed in mu ltiple views using a 5 Fr. 4.0 Trinidad catheter. Left Ventriculography was performed in CONTRERAS projection using a 5 Fr. Pigtail catheter. LV to AO pullback pressures were then recorded.The arterial sheath was pulled and a TR Band was applied for hemostasis CORONARY ANGIOGRAPHY DOMINANCE: Right Dominant LEFT HEART ASSESSMENT Normal Left Ventricular systolic function LEFT MAIN: Angiographically normal LEFT ANTERIOR DECENDING ARTERY: Angiographically normal CIRCUMFLEX ARTERY: Angiographically normal RIGHT CORONARY ARTERY: Angiographically normal COMPLICATIONS No Complications PROCEDURE MEDICATIONS Versed 2 mg IV Oxygen: 2 L/min via nasal cannula Heparin diluted in 23cc Heparinized saline. Patient given 10cc IA of this solution. 04/07/2018 10:54: 27 Verapamil 2.5mg, Ntg 100mcgs, 2000 units of Heparin diluted in 23cc Heparinized saline. Patient give n 10cc IA of this solution. 04/07/2018 10:54:27 SUMMARY OF HEMODYNAMIC DATA Time AIR REST ECG 09:57:51 ECG 10:32:09 AO 114/80 (97) SA 10:56:47 LV 122/12, 23 11:02:56 LV 121/14, 24 11:03:02 LV 113/15, 25 11:04:39 LVp 114/15, 25 11:04:44 AOp 117/72 (93) 11:04:49 RM AIR REST 11:13:26 Signed By Dk Shannon MD On 04/07/2018 11:14:24 Dk Shannon MD
== END 2018-04-07 14:00 | disposition home or self-care (01) ==
PROVIDERS: Family Provider Internal Medicine; PCP Internal Medicine; Referring Provider Internal Medicine Cardiovascular Disease; Visit Provider Internal Medicine Cardiovascular Disease
DX: I25.10 Atherosclerotic heart disease of native coronary artery without angina pectoris (principal); J44.9 Chronic obstructive pulmonary disease, unspecified; E03.9 Hypothyroidism, unspecified; B18.2 Chronic viral hepatitis C; F31.9 Bipolar disorder, unspecified; F41.0 Panic disorder [episodic paroxysmal anxiety]; I25.2 Old myocardial infarction; Z79.02 Long term (current) use of antithrombotics/antiplatelets; Z79.82 Long term (current) use of aspirin; Z79.899 Other long term (current) drug therapy; F17.200 Nicotine dependence, unspecified, uncomplicated; Z85.72 Personal history of non-Hodgkin lymphomas; Z95.5 Presence of coronary angioplasty implant and graft
CPT/HCPCS: 93458; 99152; 99153; J7040; Q9967; C1769; C1894

== ENCOUNTER 2018-04-22 19:23 | Emergency (ER) | payer MEDICAID, SELFPAY ==
[2018-04-22 19:24] VITALS: BP 130/85; PULSE 107; RESP 18; TEMP 36.1; O2SAT 96; BMI 28.5
--- NOTE | 2018-04-22 19:50 | CT_ITS ---
STUDY: CTA CHEST REASON FOR EXAM: Male, 53 years old. Chest pain. RADIATION DOSAGE (If Supplied By Facility): CTDIvol = ( 10.22 ) mGy, DLP = ( 506.27 ) mGycm TECHNIQUE: The examination was performed with the intravenous administration of 100ML ml of Isovue 370 contrast material. Post-processing of the angiographic images was performed, with multiplanar reformation and 3D reconstruction. Individualized dose optimization techniques were used for this CT. COMPARISON: July 21, 2017 FINDINGS: There are groundglass opacities with in the left lower lobe and to a lesser extent within the right lower lobe. Normal enhancement of the main pulmonary artery and right and left pulmonary arteries. Normal enhancement of the bilateral peripheral pulmonary arteries. There is no demonstrated pulmonary embolism. Normal thoracic aorta and visualized great vessels. There is no demonstrated aortic dissection. Normal heart and pericardium. Normal mediastinum. Normal hilar regions. Normal visualized trachea and bronchi. Normal chest wall structures. Normal osseous structures. The limited images of the abdomen demonstrate a stable rounded low-attenuation focus within associated peripheral calcification within the liver. CT/CTA Chest W/WO Contrast IMPRESSION: No demonstrated pulmonary embolism or arterial dissection. Groundglass opacities within the lower lobes, a nonspecific finding may reflect minimal edema. Electronically Signed: Nadege Fam MD at 21:21 EST Tel , Service support ,
--- NOTE | 2018-04-22 19:51 | EKG12_ITS ---
Test Reason : CP Blood Pressure : / mmHG Vent. Rate : 096 BPM Atrial Rate : 096 BPM P-R Int : 130 ms QRS Dur : 082 ms QT Int : 320 ms P-R-T Axes : 038 078 025 degrees QTc Int : 404 ms Normal sinus rhythm Normal ECG Confirmed by GALLITO PALUMBO MD ([id number]), news video editor OSCAR QUEZADA ([id number]) on 04/26/2018 12:51:04 PM Referred By: DC Confirmed By:GALLITO PALUMBO MD
[2018-04-22 19:55] VITALS: O2SAT 94
[2018-04-22 20:05] LABS: Absolute Lymphocyte Count 4.01 X10^3/ul (0.83-4.51); Absolute Neutrophil Count 9.1 X10^3/uL (2.0-7.7); Basophil# 0.04 X10^3/uL; Basophil% 0.3 % (0-1); Eosinophil# 0.17 X10^3/uL; Eosinophils% 1.2 % (0-5); Hematocrit 49.2 % (40-54); Hemoglobin 16.6 g/dl (13.0-16.5); Lymphocyte # 4.01 X10^3/ul (4.0); Lymphocyte % 27.8 % (19-41); Mean Corp Hgb Conc 33.7 g/gl (32-36); Mean Corpuscular Hgb 31.9 pg (27.0-32.0); Mean Corpuscular Volume 94.4 fL (80-94); Mean Platelet Vol. 9.8 fl (6.2-12.0); Monocyte# 1.04 X10^3/uL; Monocyte% 7.2 % (0-10); Neutrophil # 9.13 X10^3/uL (2.7-7.7); Neutrophil % 63.4 % (47-70); Platelet Count 279 K/mm3 (150-450); RBC Distribution Width CV 12.8 % (11.6-14.6); RBC Distribution Width SD 44.2 fl (35.1-43.9); Red Blood Count 5.21 M/mm3 (4.6-6.2); White Blood Count 14.4 K/mm3 (4.4-11.0)
[2018-04-22 20:11] LABS: POSITIVE COUNT NO; POSITIVE DIFFERENTIAL NO; POSITIVE MORPHOLOGY NO
[2018-04-22] MEDS: 0.9% Normal Saline 1,000 ML 1000 ML IV (20:18)
[2018-04-22 20:31] LABS: International Normalized Ratio 0.9; Prothrombin Time (Protime)PT. 12.6 SECONDS (11.7-14.9)
[2018-04-22 20:32] LABS: Partial Thromboplast Time 27.9 Seconds (24.1-36.2)
[2018-04-22 20:41] LABS: Anion Gap 7 (5-15); BUN 12 mg/dL (7-18); BUN/Creat Ratio 12.2 RATIO (10-20); Calcium,Total 8.7 mg/dL (8.5-10.1); Chloride 111 mmol/L (98-107); Creatinine, Serum 0.99 mg/dL (0.70-1.30); EST Glomerular Filtration Rate 85 mL/min (>60); Est Glom Filt Rate - Afr Amer 103 mL/min (>60); Estimated Creatinine Clearance 79.66 ml/min; Glucose 89 mg/dL (74-106); Potassium 3.8 mmol/L (3.5-5.1); Sodium Level 143 mmol/L (136-145)
[2018-04-22 21:41] VITALS: PULSE 85; RESP 16; O2SAT 97
--- NOTE | 2018-04-22 21:49 | ED.DCSUM_ITS ---
- ER Visit Summary Date of Service: 04/22/18 Chief Complaint: Chest pain History of Present Illness: The patient is a 53 M with chest pain. This started this morning at wake up. It is at his left chest and radiates through to the back. Worse with breathing. Patient has a history of chest pain and DVT. He had a recent cardiac catheterization which was negative. Denies fevers. Denies any other symptoms like shortness of breath. No GI symptoms. Physical Examination: Afebrile and vital signs unremarkable except for heart rate of 107. The patient appears uncomfortable but not toxic or in distress. Heart regular. Lungs clear. Abdomen soft. Skin appears normal. Test Results: EKG showed sinus rhythm at a rate of 96. No sign of acute ischemia or infarction pattern. White count 14.4 and hemoglobin 16.6. Chloride 111. Coags normal. Troponin normal. CTA showed no PE or dissection. He had nonspecific groundglass opacities. Nothing to explain his pain. Emergency Department Course and Treatment: Patient received fluids. I have low suspicion for ACS given his recent catheterization. Did have concern for PE and so a CTA was done. This was unremarkable. Patient has likely chest wall pain. He may take anti-inflammatories for pain. Follow-up with his outpatient doctor. Return for any new or worsening issues. Treatment Plan: As above Disposition: Discharged Impression: 1. Chest wall pain This note was generated with [employer] dictation software. It may contain incorrect words, spelling, and punctuation that were not noted in review of the chart prior to signing ED Disposition - Plan for ED Patient: Chief Complaint: Chest Pain Referrals: Hue Ahuja MD [Primary Care Provider] -
--- NOTE | 2018-04-22 21:50 | ED.DEP ---
ED Disposition - Plan for ED Patient: Chief Complaint: Chest Pain Instructions: ED Chest Pain Atypical Unkn Cause Referrals: Hue Ahuja MD [Primary Care Provider] -
[2018-04-22 21:53] VITALS: BP 154/86; PULSE 89; RESP 16; O2SAT 96
== END 2018-04-22 21:58 | disposition home or self-care (01) ==
PROVIDERS: Emergency Provider Emergency Medicine; Family Provider Internal Medicine; PCP Internal Medicine
DX: R07.89 Other chest pain (principal); M54.9 Dorsalgia, unspecified; Z72.0 Tobacco use; Z79.02 Long term (current) use of antithrombotics/antiplatelets; Z79.82 Long term (current) use of aspirin; Z79.899 Other long term (current) drug therapy; Z86.718 Personal history of other venous thrombosis and embolism
CPT/HCPCS: 71275; 80048; 84484; 85025; 85610; 85730; 93005; 96360; 96361; 99284; J7030; Q9967; A4216

== ENCOUNTER 2018-04-30 12:32 | Emergency (ER) | payer MEDICAID, SELFPAY ==
[2018-04-30 12:33] VITALS: BP 87/62; PULSE 85; RESP 24; TEMP 36.5; O2SAT 98; BMI 28.8
--- NOTE | 2018-04-30 12:46 | CT_ITS ---
STUDY: CT ABDOMEN AND PELVIS WITHOUT CONTRAST REASON FOR EXAM: Male, 53 years old. Right flank pain, hypotension. History of kidney stones, prior appendectomy and left hip replacement and back surgery. History of non-Hodgkin's lymphoma and hepatitis C. RADIATION DOSAGE (If Supplied By Facility): CTDIvol = ( 21.84 ) mGy, DLP = ( 991.05 ) mGycm TECHNIQUE: Transaxial images were obtained from the dome of the diaphragm to the symphysis pubis without oral contrast, and without intravenous contrast. Sagittal and coronal images were reconstructed. Individualized dose optimization techniques were used for this CT. COMPARISON: CTA chest 04/22/2018. CT abdomen and pelvis 10/21/2016. FINDINGS: Body wall soft tissues: No acute process. Osseous structures: Left total hip arthroplasty. The prosthetic components appear to be normally seated and articulated. Moderate degenerative features of the right hip joint. Mild scoliosis. No significant lumbar spondylosis. Inferior chest: Lung bases clear, normal distal esophagus and cardiac base. Hepatobiliary: Chronic benign cyst of the right liver segment 4 measuring 2.3 cm, containing layering milk of calcium deposits along the dependent wall. Otherwise normal liver parenchyma. Normal gallbladder and biliary tree. Pancreas: Moderate atrophy. Spleen: Normal. Adrenal glands: Normal. Urogenital: Punctate intracortical calcification of the right kidney. Bilaterally there are no retained calyceal calculi. Normal renal cortical thickness. Normal collecting systems, ureters, urinary bladder, prostate and seminal vesicles. Pelvic floor and sidewalls and retroperitoneum: No mass or adenopathy. Vasculature: Mild atherosclerosis. Stomach: No acute process. Small bowel and mesentery: No acute process. Large bowel: Appendectomy. Diverticulosis of the sigmoid colon without diverticulitis. Normal rectum. Free fluid or free air: None. CT/Abdomen/Pelvis without Cont IMPRESSION: No acute abdominopelvic process is evident. Electronically Signed: Erick Galvez MD at 15:46 EST Tel , Service support ,
[2018-04-30] MEDS: Ketorolac 30 MG/ML Syringe 15 MG IV (13:00)
[2018-04-30] MEDS: 0.9% Normal Saline 1,000 ML 1000 ML IV (13:00)
[2018-04-30] MEDS: Ondansetron 4 MG/2 ML Vial IV (13:00)
[2018-04-30 13:15] LABS: Absolute Neutrophil Count 8.6 X10^3/uL (2.0-7.7); Basophil# 0.03 X10^3/uL; Basophil% 0.2 % (0-1); Eosinophil# 0.24 X10^3/uL; Eosinophils% 1.8 % (0-5); Hematocrit 48.1 % (40-54); Hemoglobin 16.6 g/dl (13.0-16.5); Lymphocyte % 24.2 % (19-41); Mean Corp Hgb Conc 34.5 g/gl (32-36); Mean Corpuscular Volume 92.7 fL (80-94); Mean Platelet Vol. 9.1 fl (6.2-12.0); Monocyte# 1.41 X10^3/uL; Monocyte% 10.4 % (0-10); Neutrophil # 8.61 X10^3/uL (2.7-7.7); Neutrophil % 63.2 % (47-70); POSITIVE COUNT NO; POSITIVE DIFFERENTIAL NO; POSITIVE MORPHOLOGY NO; Platelet Count 323 K/mm3 (150-450); RBC Distribution Width CV 12.4 % (11.6-14.6); RBC Distribution Width SD 41.9 fl (35.1-43.9); Red Blood Count 5.19 M/mm3 (4.6-6.2); White Blood Count 13.6 K/mm3 (4.4-11.0)
[2018-04-30 13:16] LABS: Bacteria 0 SEEN /hpf (None Seen); Mucous, Urine 0 SEEN /hpf (<or=2+); Red Blood Cells-Urine 0 SEEN /hpf (0-5); Squamous Epithelial Cells - UA 0 SEEN /hpf (0-5); White Blood Cells 0 SEEN /hpf (0-5)
[2018-04-30 13:17] LABS: Color, Urine Yellow (Yellow); Glucose, Dipstick Normal (Normal); Ketone-Dipstick Negative (Negative); Leukocyte Esterase-Dipstick Negative /ul (Negative); Nitrite-Dipstick Negative (Negative); Occult Blood-Urine Negative /ul (Negative); Protein-Dipstick Negative (Negative); Specific Gravity, Urine 1.005 (1.002-1.030); Urine Bilirubin Dipstick Negative (Negative); Urine Clarity Clear (Clear); Urine Urobilinogen Normal (Normal)
[2018-04-30 13:25] LABS: Anion Gap 5 (5-15); BUN 8 mg/dL (7-18); BUN/Creat Ratio 8.9 RATIO (10-20); Calcium,Total 8.8 mg/dL (8.5-10.1); Chloride 108 mmol/L (98-107); EST Glomerular Filtration Rate 94 mL/min (>60); Est Glom Filt Rate - Afr Amer 114 mL/min (>60); Estimated Creatinine Clearance 87.63 ml/min; Glucose 91 mg/dL (74-106); Potassium 3.7 mmol/L (3.5-5.1); Sodium Level 140 mmol/L (136-145)
[2018-04-30 13:32] VITALS: BP 123/99; PULSE 79; RESP 18; O2SAT 99
[2018-04-30 13:38] LABS: Lactic Acid 1.3 mmol/L (0.4-2.0)
[2018-04-30] MEDS: fentaNYL 100 MCG/2 ML Ampul 50 MCG IV (14:12)
[2018-04-30 15:00] VITALS: BP 122/81; PULSE 76; RESP 18; O2SAT 98
--- NOTE | 2018-04-30 15:11 | ED.VISSUMM ---
- ER Visit Summary Date of Service: 04/30/18 Chief Complaint: Flank pain History of Present Illness: The patient is a 53 M presenting for evaluation secondary to flank pain. Patient reports that he had a sudden onset of flank pain yesterday. He reports that it is in his right flank and wraps around to his right abdomen and groin area. It is continuous sharp type pain that seems to be worse with urinating. He states that he has some urinary hesitancy. Patient states that he has had nausea no vomiting associated with this. Denies any hematuria. He states that it is causing him to feel generally weak and is having subjective fevers associated with this. He has a history of kidney stone in the past. He denies that there is any sort of radiation to his legs, numbness weakness bowel or bladder incontinence. Physical Examination: Initial vital signs are notable for blood pressure 87/62. Well-nourished male visibly uncomfortable but otherwise not physiologic distress. Moist mucous membranes. No JVD. Heart regular rate and rhythm, lungs sound clear. Abdomen soft nontender nondistended normal bowel sounds no evidence of palpable masses or abdominal mass. Right-sided CVA tenderness to percussion with some muscle spasm noted in the right lumbar region. 2+ PT pulses bilaterally symmetric. Skin normal color rash. Remainder of physical otherwise unremarkable. Test Results: CBC, chemistry, urinalysis, lactic acid found to be negative, CT abdomen and pelvis is negative Emergency Department Course and Treatment: Patient presented for evaluation secondary to flank pain. On presentation he was found to be hypotensive IV was established patient was given normal saline Toradol and Zofran. He continues to have pain he was given a dose of fentanyl. Blood pressure improved 123/99. Patient's imaging studies were negative. Patient's pain was improved on repeat evaluation at 4 PM. At this point I believe that he is appropriate for discharge. He was recommended conservative treatment at home for a likely musculoskeletal etiology of his flank pain. Disposition: Discharge Impression: 1. Right-sided flank pain, likely musculoskeletal This note was generated with [employer] dictation software. It may contain incorrect words, spelling, and punctuation that were not noted in review of the chart prior to signing ED Disposition - Plan for ED Patient: Disposition: Home or Assisted Living Chief Complaint: Flank Pain Diagnosis: Back muscle spasm Instructions: ED Spasm Back No Trauma Referrals: Hue Ahuja MD [Primary Care Provider] - 3-5 Days
--- NOTE | 2018-04-30 15:14 | ED.DCSUM_ITS ---
- ER Visit Summary Date of Service: 04/30/18 Chief Complaint: Flank pain History of Present Illness: The patient is a 53 M presenting for evaluation secondary to flank pain. Patient reports that he had a sudden onset of flank pain yesterday. He reports that it is in his right flank and wraps around to his right abdomen and groin area. It is continuous sharp type pain that seems to be worse with urinating. He states that he has some urinary hesitancy. Patient states that he has had nausea no vomiting associated with this. Denies any hematuria. He states that it is causing him to feel generally weak and is having subjective fevers associated with this. He has a history of kidney stone in the past. He denies that there is any sort of radiation to his legs, numbness weakness bowel or bladder incontinence. Physical Examination: Initial vital signs are notable for blood pressure 87/62. Well-nourished male visibly uncomfortable but otherwise not physiologic distress. Moist mucous membranes. No JVD. Heart regular rate and rhythm, lungs sound clear. Abdomen soft nontender nondistended normal bowel sounds no evidence of palpable masses or abdominal mass. Right-sided CVA tenderness to percussion with some muscle spasm noted in the right lumbar region. 2+ PT pul ses bilaterally symmetric. Skin normal color rash. Remainder of physical otherwise unremarkable. Test Results: CBC, chemistry, urinalysis, lactic acid found to be negative, CT abdomen and pelvis is negative Emergency Department Course and Treatment: Patient presented for evaluation secondary to flank pain. On presentation he was found to be hypotensive IV was established patient was given normal saline Toradol and Zofran. He continues to have pain he was given a dose of fentanyl. Blood pressure improved 123/99. Patient's imaging studies were negative. Patient's pain was improved on repeat evaluation at 4 PM. At this point I believe that he is appropriate for discharge. He was recommended conservative treatment at home for a likely musculoskeletal etiology of his flank pain. Disposition: Discharge Impression: 1. Right-sided flank pain, likely musculoskeletal This note was generated with [employer] dictation software. It may contain incorrect words, spelling, and punctuation that were not noted in review of the chart prior to signing ED Disposition - Plan for ED Patient: Disposition: Home or Assisted Living Chief Complaint: Flank Pain Diagnosis: Back muscle spasm Instructions: ED Spasm Back No Trauma Referrals: Hue Ahuja MD [Primary Care Provider] - 3-5 Days
[2018-04-30 15:58] VITALS: BP 123/85; PULSE 78; RESP 16; O2SAT 96
== END 2018-04-30 16:32 | disposition home or self-care (01) ==
PROVIDERS: Emergency Provider Emergency Medicine; Family Provider Internal Medicine; PCP Internal Medicine
DX: R10.9 Unspecified abdominal pain (principal); I95.9 Hypotension, unspecified; M62.830 Muscle spasm of back; J44.9 Chronic obstructive pulmonary disease, unspecified; R11.0 Nausea; R39.11 Hesitancy of micturition; Z72.0 Tobacco use; Z79.82 Long term (current) use of aspirin; Z79.899 Other long term (current) drug therapy; Z87.442 Personal history of urinary calculi
CPT/HCPCS: 74176; 80048; 81001; 83605; 85025; 96361; 96374; 96375; 99283; J7030; A4216; J2405

== ENCOUNTER 2018-05-14 00:19 | Emergency (ER) | payer MEDICAID, SELFPAY ==
[2018-05-14 00:19] VITALS: BP 140/98; PULSE 92; RESP 18; TEMP 36.7; O2SAT 98; BMI 28.4
--- NOTE | 2018-05-14 00:37 | CT_ITS ---
STUDY: CT SOFT TISSUE NECK WITH CONTRAST REASON FOR EXAM: Male, 53 years old. Difficulty swallowing. The patient has been treated for non-Hodgkin's lymphoma. RADIATION DOSAGE (If Supplied By Facility): CTDIvol = ( 20.27 ) mGy, DLP = ( 665.77 ) mGycm TECHNIQUE: The patient was scanned in a multi-detector CT scanner. High resolution transaxial imaging was performed following intravenous administration of 100 ml of Isovue 300 contrast material. Sagittal and coronal images were reconstructed. Multiple images are limited by patient motion. Individualized dose optimization techniques were used for this CT. COMPARISON: No previous studies of the neck are available for comparison at the time of dictation. FINDINGS: Normal bilateral parotid glands. Normal bilateral fiber designer spaces. Normal bilateral parapharyngeal spaces. Normal bilateral carotid spaces. Normal bilateral sublingual and submandibular glands and spaces. Normal visualized nasopharynx. Normal retropharyngeal space. Normal perivertebral space. Normal visualized bilateral faucial tonsils. The visualized tongue, tongue base and oropharynx are normal. The visualized cervical lymph nodes (levels I-) are within normal size limits, and maintain normal morphology. There is no demonstrated solid or cystic mass lesion. There is no abnormal contrast enhancement. Normal epiglottis, bilateral vallecula and hypopharynx. The pre-epiglottic and paraglottic adipose spaces are normal. Normal visualized bilateral piriform sinuses, aryepiglottic folds, vocal cords, and arytenoid-cricoid articulations. Normal subglottic trachea. Normal bilateral lobes of the thyroid gland. Normal visualized pulmonary apices. Normal visualized paranasal sinuses. There is mild degenerative disc disease at C5-6 and C6-7. CT/Soft Tissue Neck WITH Contrast IMPRESSION: No CT evidence for mass or lymphadenopathy. Electronically Signed: Racheal Kirby MD at 2:24 EST , Service support ,
--- NOTE | 2018-05-14 00:40 | ED.DCSUM_ITS ---
- ER Visit Summary Date of Service: 05/14/18 Chief Complaint: Sore throat History of Present Illness: The patient is a 53 M presenting with sore throat. Patient has had intermittent sore throat for the past month. He states this worsened today. Pain is mostly on the right side. He has had painful swallo wing and difficulty swallowing. He has had no drooling. He denies fever. He states he also spit out a small blood clot today. He did not vomit blood. Denies other complaints. Physical Examination: Vitals are stable. Patient is afebrile. Alert no acute distress. HEENT exam pharyngeal erythema with no exudate. Uvula midline. No sublingual edema. No trismus. Neck is supple. No meningismus Lungs are clear and equal bilaterally. Heart is regular rate and rhythm. Abdomen is soft nontender nondistended. Extremities are unremarkable. Skin is warm and dry. No rash Remainder of exam is unremarkable. Emergency Department Course and Treatment: Patient given IV fluids, decadron, morphine, Zofran IV. CBC shows white count 21.3. Chemistries unremarkable. He continues to have pain and was given Toradol. Chest x-ray shows no acute process. CT soft tissue neck shows no mass or lymphadenopathy. On repeat evaluation, patient continues to have painful swallowing but is able to swallow. Discussed with the hospitalist. At this time he feels there is no indication for admission and advises Augmentin until throat culture returns and close follow up with PCP. Patient has a history of elevated white count in the past. Patient and family are agreeable with this plan. Advised to return to the ED for worsening complaints. Disposition: Discharge home Impression: Pharyngitis This note was generated with [employer] dictation software. It may contain incorrect words, spelling, and punctuation that were not noted in review of the chart prior to signing ED Disposition - Plan for ED Patient: Chief Complaint: Sore Throat Instructions: ED Pharyngitis Viral Prescriptions: Amox/Clavulanate Tablet [Augmentin Tablet] 875 mg PO Q12H #20 tablet Amox/Clav 250mg/5ml Suspension [Augmentin Suspension 250mg/5 ml] 875 mg PO BIDCM #7 days Referrals: Hue Ahuja MD [Primary Care Provider] -
[2018-05-14 00:56] LABS: Absolute Neutrophil Count 14.8 X10^3/uL (2.0-7.7); Basophil# 0.05 X10^3/uL; Basophil% 0.2 % (0-1); Differential Indicated SCAN CRITERIA MET; Eosinophil# 0.13 X10^3/uL; Eosinophils% 0.6 % (0-5); Hematocrit 48.3 % (40-54); Hemoglobin 16.8 g/dl (13.0-16.5); Lymphocyte % 21.6 % (19-41); Mean Corp Hgb Conc 34.8 g/gl (32-36); Mean Corpuscular Hgb 32.4 pg (27.0-32.0); Mean Corpuscular Volume 93.2 fL (80-94); Mean Platelet Vol. 9.1 fl (6.2-12.0); Monocyte# 1.75 X10^3/uL; Monocyte% 8.2 % (0-10); Neutrophil # 14.76 X10^3/uL (2.7-7.7); Neutrophil % 69.2 % (47-70); POSITIVE COUNT NO; POSITIVE DIFFERENTIAL YES; POSITIVE MORPHOLOGY NO; Platelet Count 311 K/mm3 (150-450); RBC Distribution Width CV 12.4 % (11.6-14.6); RBC Distribution Width SD 42.1 fl (35.1-43.9); Red Blood Count 5.18 M/mm3 (4.6-6.2); White Blood Count 21.3 K/mm3 (4.4-11.0)
[2018-05-14] MEDS: Ondansetron 4 MG/2 ML Vial IV (00:56)
[2018-05-14] MEDS: Morphine 4 MG/ML Syringe IV (01:01)
--- NOTE | 2018-05-14 01:06 | RAD_ITS ---
STUDY: X-RAY CHEST REASON FOR EXAM: Male, 53 years old. Pain in the right side of the neck TECHNIQUE: 1 view COMPARISON: October 23, 2017 FINDINGS: The lungs are clear and expanded. The plate atelectatic changes in the left base noted in the previous study have resolved There is no demonstrated pleural abnormality. Normal size heart. Normal mediastinum and rima. Normal visualized pulmonary arteries. Normal visualized aortic arch and descending thoracic aorta. Normal visualized thoracic spine. Normal visualized ribs, clavicles, and shoulders. There is no demonstrated abnormality of the visualized soft tissue structures of the upper abdomen. RAD/Chest 1 View (Portable) IMPRESSION: Normal x-ray examination of the chest. No acute findings in the lungs Electronically Signed: Osei Temple MD at 1:55 EST Tel , Service support ,
[2018-05-14 01:09] LABS: Anion Gap 6 (5-15); BUN 10 mg/dL (7-18); BUN/Creat Ratio 9.8 RATIO (10-20); Calcium,Total 8.8 mg/dL (8.5-10.1); Chloride 105 mmol/L (98-107); Creatinine, Serum 1.02 mg/dL (0.70-1.30); EST Glomerular Filtration Rate 82 mL/min (>60); Est Glom Filt Rate - Afr Amer 99 mL/min (>60); Estimated Creatinine Clearance 77.32 ml/min; Glucose 101 mg/dL (74-106); Sodium Level 140 mmol/L (136-145)
[2018-05-14 01:13] LABS: Reactive Lymphocyte RARE
[2018-05-14] MEDS: Ketorolac 30 MG/ML Syringe IV (02:13)
[2018-05-14] MEDS: 0.9% Normal Saline 1,000 ML 999 ML IV (02:13)
[2018-05-14 02:15] VITALS: BP 121/86; PULSE 72; RESP 18; O2SAT 97
--- NOTE | 2018-05-14 03:20 | ED.DEP ---
ED Disposition - Plan for ED Patient: Chief Complaint: Sore Throat Instructions: ED Pharyngitis Viral Prescriptions: Amox/Clavulanate Tablet [Augmentin Tablet] 875 mg PO Q12H #20 tablet Referrals: Hue Ahuja MD [Primary Care Provider] -
--- NOTE | 2018-05-14 03:36 | ED.DEP ---
ED Disposition - Plan for ED Patient: Chief Complaint: Sore Throat Instructions: ED Pharyngitis Viral Prescriptions: Amox/Clavulanate Tablet [Augmentin Tablet] 875 mg PO Q12H #20 tablet Amox/Clav 250mg/5ml Suspension [Augmentin Suspension 250mg/5 ml] 875 mg PO BIDCM #7 days Referrals: Hue Ahuja MD [Primary Care Provider] -
[2018-05-14] MEDS: Amox/Clav 400mg/5ml Susp 875 MG PO (03:57)
[2018-05-14 04:06] VITALS: BP 122/82; PULSE 88; RESP 16; O2SAT 100
== END 2018-05-14 04:09 | disposition home or self-care (01) ==
PROVIDERS: Emergency Provider Emergency Medicine; Family Provider Internal Medicine; PCP Internal Medicine
DX: J02.9 Acute pharyngitis, unspecified (principal); R13.10 Dysphagia, unspecified; J45.909 Unspecified asthma, uncomplicated; F31.9 Bipolar disorder, unspecified; F41.9 Anxiety disorder, unspecified; Z72.0 Tobacco use; Z79.82 Long term (current) use of aspirin; Z79.899 Other long term (current) drug therapy; Z86.19 Personal history of other infectious and parasitic diseases
CPT/HCPCS: 70491; 71045; 80048; 85025; 87880; 96361; 96374; 96375; 99285; J7030; Q9967; A4216; J2405

== ENCOUNTER → 2018-07-06 16:03 | Outpatient (CLI) | payer MEDICAID, SELFPAY ==
--- NOTE | 2018-07-06 16:33 | MRI_ITS ---
STUDY: MRI LEFT KNEE REASON FOR EXAM: Male, 53 years old. History of osteonecrosis. Severe knee pain. TECHNIQUE: Standardized fat and water weighted pulse sequences were obtained in all 3 orthogonal planes. COMPARISON: None. FINDINGS: There is extensive osteonecrosis involving the femoral shaft, extending into the posterior medial and anterolateral femoral condyles. There is extensive osteonecrosis of the tibial plateaus and proximal tibial shaft, extending to the subcortical bone. There is no fracture or bone contusion. The fibular head is intact. Normal medial meniscus. Normal hyaline cartilage of the medial femorotibial compartment. Normal medial collateral ligamentous complex (MCL). Normal distal semimembranosus, gracilis and semitendinosus tendons. Normal lateral meniscus. Normal hyaline cartilage of the lateral femorotibial compartment. Normal proximal tibiofibular articulation. Normal lateral collateral (fibular) ligament. Normal popliteus tendon. Normal biceps femoris tendon. Normal anterior cruciate ligament (ACL). Normal posterior cruciate ligament (PCL). Normal congruent patellofemoral articulation. Normal hyaline cartilage of the patellofemoral compartment. Normal medial and lateral patellar retinaculum. Normal quadriceps tendon. Normal patellar tendon. Normal Hoffa's fat pad. There is no joint effusion. The soft tissues are unremarkable. MRI/Lower Ext Joint Only (Routine) IMPRESSION: Extensive osteonecrosis. Otherwise, unremarkable MRI. Electronically Signed: Kaity Henriquez MD at 20:45 EST Tel , Service support ,
== END ==
PROVIDERS: Family Provider Internal Medicine; PCP Internal Medicine
DX: M25.562 Pain in left knee (principal)
CPT/HCPCS: 73721

== ENCOUNTER 2018-07-12 15:30 | Outpatient (RCR) | payer MEDICAID, SELFPAY ==
--- NOTE | 2018-07-04 17:14 | HP.PTEVAL ---
Patient's Visit Information VITA MAYORGA is a 53 year old M referred to Physical Therapy by BALDO COLLADO with a diagnosis of L knee degeneration. Date of Evaluation: 07/04/18 Physical Therapist: CHAVA FranklinT, OCS, CSCS - Visit Plan Frequency: 2x /Week Duration: 4-6 Weeks Plan: 2x/week for 3-6 weeks... start AT for B knee strength, B hip strength, HS adn hip flexor stretch adn LB ROM ext adn rotation and flexion. Progress to land as tolerated and or I pool program. - Subjective Findings: L knee and leg and back hurt. Has brace from Dr. Canela and diagnosed with avascualr necrosis. H/O L SABRINA 4 years. L knee has hurt for last year. R side not as bad a s left. Also has radiculopathy in both legs. 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 Stepping on L knee without brace is excruciating. Has gone down before due to pain and knee won't hold him. H/o trauma to L knee and 2 scopes years ago. Shrapnel in both legs. Pain varies 0-6/10 and other days where he can't step on it at all. Sometimes hurts at rest if sits too long. Getting out of chair can hurt.Sleep is interrupted sometimes. Distance walking makes him worse. Getting down to floor to pick something up hurts. Uses r knee to stadn more than L. Not currently employed due to paion issues. No regular exercises. Basic aDLs are OK, sometimes needs help into shower. Has school MWF and sits for an hour in two different classes. Has 15 steps to get to bedroom and crawls some days. - Pain L knee lateral anterior Pain Intensity (Out of 10): 2 Pain Intensity Range: 0, 6 - Objective Walks with L antalgia adn wide MALIK, brace on L knee. L knee aROM 0-105, much tenderness lateral joint line adn patella maximally. L knee strength 3+ ext adn painful, 4- flexion painful, R knee 5/5 and full aROM. Hip strength 4- gluts adn 3+ hip abd R vs 4- L. PROM WFL but tightness present in B hip flexors and HS. rotations passively very painful R hip. L moves much better withotu pain. reflexes 0/3 patella adna chilles. Sensation diminished in distal B LE to gross light touch. LB aROM ext very limited adn painful centrally, flexion very tight B gluts and HS and LB paraspinals. SB min limited and not bad today. Transfers I but slow and labored. Unable to SLS on L due to pain and instabiliity. - Goals Goal 1:: Pain L knee 2/10 at worst and manageable. Goal Time Frame: 4-6 Weeks Goal 2:: I approp HEP for B LE strength, LB ROM adn progress pool to gym ex. Goal Time Frame: 4-6 Weeks Goal 3:: Stadn on L LE with confidence. Goal Time Frame: 4-6 Weeks Goal 4:: Sleep without interruptiona t night from back or knee. Goal Time Frame: 4-6 Weeks - Rehabilitation Potential Physical Therapy Diagnosis: L knee degeneration adn LB/hip degeneration. Rehabilitation Potential: Fair - Anticipated Interventions Patient/Client Instruction: Educate patient on: Condition, Plan of Care For the Purpose of:: To decrease pain, To increase ROM, To improve ability of physical actions for home/community/work/leisure Therapeutic Exercise to Include: Strength training, Flexibilty training, Gait and locomotor training, In an aquatic setting, Passive ROM, Active ROM For the Purpose of:: To decrease pain, To improve nutrient delivery to tissue, To improve muscle performance and motor function, To increase tolerance to activity/condition/position, To improve ability of physical actions for home/community/work/leisure Thank you for the opportunity to evaluate your patient. For Medicare and Medicare HMO plans, please review the plan of care and approve it. It will need to be FAXED BACK to us at [phone] for Medicare purposes. For Medicare only, by signing this I certify the plan of care. Please let me know if there are questions or concerns regarding this plan of care. Physician Signature: Date:
--- NOTE | 2018-09-06 15:20 | HP.PTDCNRP_ITS ---
HP - Discharge Summary (1) - Patient Information VITA MAYORGA was seen in my office for initial evaluation on 07/04/18. The following Plan of Care was established for this patient: Initial Frequency: 2x /Week Initial Duration: 4-6 Weeks - Anticipated Interventions Patient/Client Instruction: Educate patient on: Condition, Plan of Care For the Purpose of:: To decrease pain, To increase ROM, To improve ability of p hysical actions for home/community/work/leisure Therapeutic Exercise to Include: Strength training, Flexibilty training, Gait and locomotor training, In an aquatic setting, Passive ROM, Active ROM For the Purpose of:: To decrease pain, To improve nutrient delivery to tissue, To improve muscle performance and motor function, To increase tolerance to activity/condition/position, To improve ability of physical actions for home/community/work/leisure This patient was last seen in our office 07/12/18. Pertinent comments regarding their Physical therapy will appear below: Pt seen 2 visits of POC. He cancelled or no showed the next 5 visits adn neglected to reschedule. At this point, it has been almost two months adn Iw ill discontinue due to nonattendance. At this point I will be discontinuing this patient from physical therapy. I would be happy to see this patient again in the future if found appropriate by the physician. Thank you! Gonzalo Restrepo, DPT, OCS, CSCS
== END 2018-07-12 19:00 | disposition home or self-care (01) ==
LOC: PT 15:30
PROVIDERS: Family Provider Internal Medicine; PCP Internal Medicine
DX: M87.10 Osteonecrosis due to drugs, unspecified bone (principal); M25.562 Pain in left knee; M87.9 Osteonecrosis, unspecified; Z96.642 Presence of left artificial hip joint
CPT/HCPCS: 97113; 97162

== ENCOUNTER 2018-09-02 16:19 | Emergency (ER) | payer MEDICAID, SELFPAY ==
[2018-09-02 16:20] VITALS: BP 131/88; PULSE 98; RESP 16; TEMP 36.9; O2SAT 98; BMI 27.6
[2018-09-02 16:23] VITALS: BP 131/88; PULSE 98; RESP 16; TEMP 36.9; O2SAT 98
--- NOTE | 2018-09-02 19:12 | US_ITS ---
STUDY: SCROTUM ULTRASOUND REASON FOR EXAM: Male, 53 years old. Testicular pain on the left starting 3 days ago. TECHNIQUE: Ultrasound evaluation of the scrotum was performed with color Doppler and static strickland-scale imaging. COMPARISON: 03 February 2017 FINDINGS: RIGHT TESTICLE INTRATESTICULAR: There is a normal size of the right testicle. The right testicle measures 3.8 x 2.3 x 2.2 cm. There is a homogenous echotexture. There is normal arterial and normal venous vascularity. There is no demonstrated right testicular mass or cyst. There is a focal hyperechoic region within the right testicle measuring 3 x 4 mm likely consistent with calcification given appearance. EXTRATESTICULAR: The epididymis is normal in size. The epididymis head measures 0.9 x 1.2 x 1.1 cm. There is normal vascularity of the epididymis. There is no demonstrated epididymal cystic structure. There is a small hydrocele. There is no demonstrated varicocele. There is no demonstrated extratesticular mass or cyst. LEFT TESTICLE INTRATESTICULAR: There is a normal size of the left testicle. The left testicle measures 3.6 x 2.7 x 2.3 cm. There is a homogenous echotexture. There is normal arterial and normal venous vascularity. There is no demonstrated left testicular mass or cyst. Within the left testicle is a focal hyperechoic region measuring 2 x 2 mm also likely consistent with calcification. EXTRATESTICULAR: The epididymis is normal in size. The epididymis head measures 1.0 x 0.9 x 0.8. cm. There is normal vascularity of the epididymis. There is no demonstrated epididymal cystic structure. There is no demonstrated hydrocele. There is no demonstrated varicocele. There is no demonstrated extratesticular mass or cyst. Within the left inguinal canal overlying the area of pain is an echogenic nonshadowing and nonvascular region measuring 5 x 3 x 2 mm. US/Testicular with Arterial Flow IMPRESSION: 1. No evidence of testicular torsion or mass. Within the bilateral ghanshyam is a focal hypoechoic region measuring approximately 3 mm likely representing parenchymal calcification. These regions were not present on previous 2017 exam, recommend follow-up imaging in 3-4 months to document stability. 2. Bilateral small hydroceles. 3. Within the left inguinal canal and the area of pain is a benign-appearing echogenic nonvascular lesion measuring 5 x 3 x 2 mm of unclear etiology with question of mild surrounding edema. Underlying inflammatory processes not completely excluded. Recommend continued clinical follow-up and follow-up imaging to document stability versus resolution. Electronically Signed: Teto Khan DO at 22:48 EDT , Service support ,
[2018-09-02] MEDS: HYDROmorphone 1 MG/ML Syringe IM (19:37)
[2018-09-02 19:49] LABS: Bacteria 0 SEEN /hpf (None Seen); Mucous, Urine 0 SEEN /hpf (<or=2+); Red Blood Cells-Urine 0 SEEN /hpf (0-5); White Blood Cells 0 SEEN /hpf (0-5)
[2018-09-02 19:53] LABS: Color, Urine Yellow (Yellow); Glucose, Dipstick Normal (Normal); Ketone-Dipstick Negative (Negative); Leukocyte Esterase-Dipstick Negative /ul (Negative); Nitrite-Dipstick Negative (Negative); Occult Blood-Urine Negative /ul (Negative); Protein-Dipstick Negative (Negative); Specific Gravity, Urine 1.015 (1.002-1.030); Urine Bilirubin Dipstick Negative (Negative); Urine Clarity Clear (Clear); Urine Urobilinogen Normal (Normal)
[2018-09-02 20:11] VITALS: RESP 18; O2SAT 99
[2018-09-02 20:11] LABS: Squamous Epithelial Cells - UA 0-5 SEEN /hpf (0-5)
--- NOTE | 2018-09-02 22:42 | ED.VISSUMM ---
- ER Visit Summary Date of Service: 09/02/18 Chief Complaint: Left testicular pain History of Present Illness: The patient is a 53 M with a 3-day history of left testicular pain. He reports having a fever of 101.4 yesterday. He has no other source of infection. Patient states left testicular pain is similar to prior varicocele. He has undergone varicocele repair and denervation of the spermatic cord. Physical Examination: Vital signs are unremarkable. Patient is afebrile. Head neck examination is unremarkable. Heart is regular rate and rhythm. Lung sounds are clear. Abdomen soft nontender. examination reveals no scrotal edema or erythema. Left testicle is tender to palpation without palpable masses. Test Results: Urinalysis is unremarkable. Emergency Department Course and Treatment: Patient is given 1 mg of IM Dilaudid. Testicular ultrasound shows no torsion or mass. Small parenchymal calcifications are noted bilaterally and follow-up was recommended in 3 or 4 months. Small bilateral hydroceles are noted. In the left inguinal canal where patient is most tender is a benign-appearing echogenic nonvascular lesion measuring 5 x 3 x 2 mm of uncertain etiology. Repeat imaging for follow-up is recommended. Test results discussed with patient. Patient now states that 4 days ago he was stretching and felt a pulling sensation or a pop in his left groin line. I believe he likely pulled some scar tissue from his previous surgeries and now has increased inflammation. He will be given a short course of pain medication and will call his surgeon at [facility] on Tuesday for follow-up. Treatment Plan: [] Disposition: Discharge Impression: Left testicular pain This note was generated with [employer] dictation software. It may contain incorrect words, spelling, and punctuation that were not noted in review of the chart prior to signing ED Disposition - Plan for ED Patient: Referrals: Hue Ahuja MD [Primary Care Provider] -
--- NOTE | 2018-09-02 23:02 | DCINST.ED_ITS ---
ED Disposition - Plan for ED Patient: Disposition: Home or Assisted Living Instructions: ED Testicular Pain [facility] Prescriptions: Hydrocodone Bitart/Apap 5-325 [[place] 5MG-325MG] 1 tablet PO Q6H PRN PRN 3 Days #10 tablet PRN Reason: Pain Additional Instructions: Follow-up with your surgeon as discussed.
[2018-09-02] MEDS: HYDROcodone Bitartrate/Apap 5/325 Tablet PO ×2 (23:16)
[2018-09-02 23:17] VITALS: RESP 12; O2SAT 97
== END 2018-09-02 23:18 | disposition home or self-care (01) ==
PROVIDERS: Emergency Provider Emergency Medicine; Family Provider Internal Medicine; PCP Internal Medicine
DX: N50.812 Left testicular pain (principal); N43.3 Hydrocele, unspecified; R30.0 Dysuria; I25.10 Atherosclerotic heart disease of native coronary artery without angina pectoris; J44.9 Chronic obstructive pulmonary disease, unspecified; F31.9 Bipolar disorder, unspecified; Z72.0 Tobacco use; Z79.82 Long term (current) use of aspirin; Z79.899 Other long term (current) drug therapy; Z85.72 Personal history of non-Hodgkin lymphomas; Z86.19 Personal history of other infectious and parasitic diseases
CPT/HCPCS: 76870; 81001; 93976; 96372; 99283

== ENCOUNTER 2018-09-16 11:09 | Emergency (ER) | payer MEDICAID, SELFPAY ==
[2018-09-16 11:10] VITALS: BP 126/82; PULSE 84; RESP 17; TEMP 36.7; O2SAT 98; BMI 28.0
--- NOTE | 2018-09-16 11:20 | RAD_ITS ---
STUDY: X-RAY - RIGHT FOOT CLINICAL: Male, 53 years old. Fourth and fifth proximal phalanx pain after hitting foot on wall TECHNIQUE: . view(s) of the foot. COMPARISON: None. FINDINGS: Normal talus, calcaneus, and tarsal bones. Normal visualized subtalar, talonavicular, calcaneocuboid, tarsal and tarsometatarsal articulations. Normal metatarsi. Normal metatarsophalangeal joint of the great toe. Normal tibial and fibular sesamoid bones. Normal interphalangeal joint of the great toe. Normal phalanges of the great toe. Normal second through fifth metatarsophalangeal joints. There is cortical irregularity of the fifth proximal phalanx suggesting a spiral type nondisplaced fracture. There is soft tissue swelling. The soft tissue structures are otherwise unremarkable. RAD/Foot min 3 Views IMPRESSION: 1. Nondisplaced fifth proximal phalanx fracture. Electronically Signed: Bob Kingston MD at 11:44 EDT , Service support ,
--- NOTE | 2018-09-16 11:23 | ED.DCSUM_ITS ---
History of Present Illness Chief Complaint: Lower Extremity Injury Informant: Patient Occurred: Today Mechanism/Context: Injury Current Severity: Mild Maximum Severity: Severe Worsened by: Weightbearing and putting on his socks and shoes Relieved by: Nothing Associated Symptoms: Negative for: Parasthesia, Weakness, Loss of Funtion Narrative: Patient is a middle-aged male who states he awoke this morning to use the restroom at approximately 0500. When he turned to exit the restroom he hit the wall with his right foot. He is complaining of pain over the fourth and fifth toe. He took 400 mg of ibuprofen 4 hours ago. He states he still in pain. He has no other complaints. He is on no anticoagulant. Tetanus Immunization: 5-10 years Prior similar symptoms: No Recent Illness/Hospitalization: No - Past Medical History (1) Avascular necrosis of left femoral head Status: Acute (2) Nicotine dependence Status: Chronic (3) Old myocardial infarct Status: Chronic Past Medical History - Allergies and Home Meds Allergies/Adverse Reactions: Allergies naproxen [From Naprosyn] Adverse Reaction (Verified 09/16/18 11:10) Upset Stomach BEE VENOM Allergy (Uncoded 09/16/18 11:10) Anaphylaxis Primary Care Physician: Hue Ahuja MD [Primary Care Provider] - Prior records reviewed: Yes Surgical History: appendectomy, arthroscopy, knee, total hip arthroplasty, - - Facial reconstructive surgery. Lives: Alone Smoking Status: Current every day smoker Drugs: - - There is a history of opiate dependency - Family History Maternal Family History: Reports: No pertinent history Paternal Family History: Reports: No pertinent history Review of Systems Gastrointestinal: Denies: Nausea, Vomiting Musculoskeletal: Reports: Extremity Pain - Patient complains of pain and discoloration right fourth and fifth toe. Denies: Myalgias, Arthralgias, Neck pain, Back pain, Swelling, -, - Skin: Denies: Rash, Abscess, Abrasions, Wounds Neurological: Denies: Parasthesia, Numbness Hematologic: Denies: Easy bruising, Easy bleeding Allergy: Denies: Uticaria, Swelling of the mouth Physical Exam Vital Signs/Narrative: Vital Signs Temp Pulse Resp BP Pulse Ox 09/16/18 11:10 98.1 F 84 17 126/82 H 98 - Extremity Exam Right Tib fib: Negative for: Abrasion, Contusion, Deformity, Edema, Hematoma, Limited ROM, - Right Ankle: Negative for: Abrasion, Contusion, Deformity, Edema, Hematoma, Limited ROM, - Right Foot: Contusion, Hematoma, Limited ROM, - - There is pain to palpation over the fourth and fifth metatarsal capillary refill is normal.. Negative for: Abrasion, Deformity, Edema Right Toe: Contusion, Hematoma, Limited ROM - Fourth and fifth toe with pain the patient over the proximal phalanx. Negative for: Abrasion, Deformity, Edema, - General: Well nourished, Well developed Head: Normocephalic, Atraumatic Eyes: Perrl, EOMI Cardiovascular: Regular rate, Regular rhythm, No murmurs Skin: Normal color, No rash, Trauma. Negative for: Cyanosis, Jaundice Neurological: Alert, Oriented x3, Cranial nerves II-XII grossly intact, Normal Strength, Normal Sensation Psychological: Normal affect, Tearful Diagnostic/Tx/Re-eval Chest X-Ray - ED: Read by ED Physician Three-view x-ray of the right foot reveals a nondisplaced fracture shaft prox imal phalanx little toe with no displacement. - Medical Decision Making X-ray of the right foot was obtained to evaluate the proximal phalanx of the fourth and fifth toe and the fourth and fifth metatarsal to rule out fracture. Treatment for patient's fracture is carrie tape of fifth toe to fourth toe and hard soled shoe. ED Disposition - Plan for ED Patient: Disposition: Home or Assisted Living Diagnosis: Nondisplaced fracture of proximal phalanx of toe of right foot Instructions: ED Fx Toe Closed Prescriptions: Hydrocodone Bitart/Apap 5-325 [[place] 5MG-325MG] 1 tablet PO Q6H PRN PRN 3 Days #10 tablet PRN Reason: Pain Referrals: Hue Ahuja MD [Primary Care Provider] - 1-2 Weeks Additional Instructions: Change tape every 2-3 days. Apply ice 20-30 minutes per application 6-8 times a day.
== END 2018-09-16 13:11 | disposition home or self-care (01) ==
PROVIDERS: Emergency Provider Emergency Medicine; Family Provider Internal Medicine; PCP Internal Medicine
DX: S92.514A Nondisplaced fracture of proximal phalanx of right lesser toe(s), initial encounter for closed fracture (principal); W22.8XXA Striking against or struck by other objects, initial encounter; Y93.9 Activity, unspecified; Y92.9 Unspecified place or not applicable; Y99.9 Unspecified external cause status; F11.21 Opioid dependence, in remission; F17.200 Nicotine dependence, unspecified, uncomplicated; I25.2 Old myocardial infarction; Z79.82 Long term (current) use of aspirin; Z79.899 Other long term (current) drug therapy
CPT/HCPCS: 73630; 99282

== ENCOUNTER 2018-10-06 12:05 | Emergency (ER) | payer MEDICAID, SELFPAY ==
[2018-10-06 12:07] VITALS: BP 125/69; PULSE 93; RESP 16; TEMP 36.7; O2SAT 97; BMI 28.2
--- NOTE | 2018-10-06 12:44 | ED.DCSUM_ITS ---
- ER Visit Summary Date of Service: 10/06/18 Chief Complaint: Back pain History of Present Illness: The patient is a 53 M who presents with back pain. 1 week ago he states he twisted his back and felt a pop in his lower back. Has had increased pain since that time with radiation down his left leg. He gets numbness in his foot. He denies fevers, abdominal pain, urinary retention, fecal incontinence. He states this does feel like sciatica which she has had previously. Physical Examination: Afebrile vitals unremarkable Patient does have some reproducible left-sided paraspinal lumbar tenderness 5 out of 5 strength dorsiflexion, plantarflexion, extensor hallucis longus, sensation intact to light touch, palpable dorsalis pedis pulse. Test Results: Not indicated Emergency Department Course and Treatment: Patient will be placed on a prednisone burst. Treatment Plan: [] Disposition: Discharge Impression: Lumbar radiculopathy This note was generated with [employer] dictation software. It may contain incorrect words, spelling, and punctuation that were not noted in review of the chart prior to signing ED Disposition - Plan for ED Patient: Referrals: Hue Ahuja MD [Primary Care Provider] -
[2018-10-06 12:53] VITALS: RESP 18
== END 2018-10-06 12:58 | disposition home or self-care (01) ==
LOC: ED 12:54
PROVIDERS: Emergency Provider Emergency Medicine; Family Provider Internal Medicine; PCP Internal Medicine
DX: M54.16 Radiculopathy, lumbar region (principal); E11.9 Type 2 diabetes mellitus without complications; Z72.0 Tobacco use; Z79.82 Long term (current) use of aspirin; Z79.899 Other long term (current) drug therapy
CPT/HCPCS: 99283

== ENCOUNTER 2018-11-14 09:13 | Emergency (ER) | payer MEDICAID, SELFPAY ==
[2018-11-14 09:14] VITALS: BP 131/87; PULSE 83; RESP 18; TEMP 36.6; O2SAT 99; BMI 28.0
--- NOTE | 2018-11-14 09:35 | ED.VIS.GEN ---
History of Present Illness Chief Complaint: Other, Pain/Inj Informant: Patient Onset: Weeks Context: Gradual Onset Timing: Continuous Quality: Pain multiple joint Location: Multiple joints both hands, lower extremity Current Severity: Moderate Maximum Severity: Severe Worsened by: Use of extremity Relieved by: Nothing Associated Symptoms: Disability Narrative: Patient is a middle-aged male who reports he was diagnosed with rheumatoid arthritis by practitioner at the [facility] 2 weeks ago. He has an appointment to see one piece expansion maker hand at [facility] February 2019. He was placed on no medication for pain. He denies fever, chills night sweats. He does report myalgias, arthralgias and swelling of his extremities. He denies headache, visual, ocular auditory symptoms. He denies cardiac respiratory symptoms. He does report significant left shoulder pain with marked increase in pain with use. He denies GI or symptoms. Prior similar symptoms: Yes Recent Illness/Hospitalization: Yes - Past Medical History (1) Rheumatoid arthritis Status: Acute (2) Avascular necrosis of left femoral head Status: Acute (3) Nicotine dependence Status: Chronic Past Medical History - Allergies and Home Meds Allergies/Adverse Reactions: Allergies naproxen [From Naprosyn] Adverse Reaction (Verified 11/14/18 09:17) Upset Stomach BEE VENOM Allergy (Uncoded 11/14/18 09:17) Anaphylaxis ROOT BEER Allergy (Uncoded 11/14/18 09:17) Hives Primary Care Physician: Hue Ahuja MD [Primary Care Provider] - Prior records reviewed: Yes Surgical History: appendectomy, arthroscopy, knee, total hip arthroplasty, - - Facial reconstructive surgery. Lives: Spouse/ Significant Other Smoking Status: Current every day smoker Alcohol: None - Family History Maternal Family History: Reports: No pertinent history Paternal Family History: Reports: No pertinent history Review of Systems General: Denies: Chills, Fever, Sweats Eyes: Denies: Visual changes - bilaterally, Blurred Vision - bilaterally, Diplopia ENT: Denies: Rhinorrhea, Sore throat Cardiovascular: Denies: Chest pain, Palpitations Respiratory: Denies: Dyspnea, Cough, Dyspnea on exertion Gastrointestinal: Denies: Abdominal pain, Nausea, Vomiting, Diarrhea, Melena, Hematochezia Genitourinary: Denies: Dysuria, Hematuria, Frequency Musculoskeletal: Reports: Myalgias, Arthralgias, Back pain, Swelling, Extremity Pain Skin: Denies: Rash, Wounds Neurological: Denies: Headache, Weakness, Numbness Psych: Reports: Depression Hematologic: Denies: Easy bruising, Easy bleeding Allergy: Denies: Uticaria, Swelling of the mouth, Swelling of the tongue Physical Exam Vital Signs/Narrative: Vital Signs Temp Pulse Resp BP Pulse Ox 11/14/18 09:14 97.8 F 83 18 131/87 H 99 Inital Vital Signs reviewed: Yes General: Well nourished, Well developed, No Acute Distress Head: Normocephalic, Atraumatic Eyes: Perrl, EOMI ENT: Moist mucous membranes, No rhinorrhea Neck: Supple, Nontender Cardiovascular: Regular rate, Regular rhythm, No murmurs Respiratory: No distress, CTA bilaterally, Chest nontender Abdomen: Soft, Nontender, Nondistended, Normal bowel sounds Back: Nontender, Normal Inspection Extremities: Tenderness, Edema, - - Patient has swelling of the right and left hand with joint swelling and bogginess. There is no warmth or erythema over the joints of his right digits or hand. Examination lower extremity reveals no joint swelling. Skin: Normal color, No rash Neurological: Alert, Oriented x3, Cranial nerves II-XII grossly intact, Normal Strength, Normal Sensation, Normal DTR Psychological: Normal Mood, Depressed Diagnostic/Tx/Re-eval - Medical Decision Making With recent diagnosis of rheumatoid arthritis and increased pain with joint swelling will treat with IV Toradol and p.o. prednisone. Will reassess in 30 to 60 minutes. I was informed at 1020 that patient states he did not get much relief with medications prescribed. Patient was informed at 1040 that since he has had problems for months that nothing will take away the pain immediately. Will prescribe anti-inflammatory since she has no contra indication and burst of prednisone. If this is not effective he was instructed to follow-up with his primary care doctor to help manage his pain until he is seen by a one piece expansion maker hand in February. ED Disposition - Plan for ED Patient: Diagnosis: Rheumatoid arthritis flare Instructions: ED Arthritis Rheumatoid Prescriptions: Prednisone [Deltasone] 40 mg PO DAILY #10 tablet Naproxen [Naprosyn] 500 mg PO BID #20 tablet Referrals: Hue Ahuja MD [Primary Care Provider] - 1 Week if not improving Additional Instructions: Your prescription was electronically transmitted to your designated pharmacy of choice, [facility] located on [facility].
--- NOTE | 2018-11-14 09:39 | ED.DCSUM_ITS ---
History of Present Illness Chief Complaint: Other, Pain/Inj Informant: Patient Onset: Weeks Context: Gradual Onset Timing: Continuous Quality: Pain multiple joint Location: Multiple joints both hands, lower extremity Current Severity: Moderate Maximum Severity: Severe Worsened by: Use of extremity Relieved by: Nothing Associated Symptoms: Disability Narrative: Patient is a middle-aged male who reports he was diagnosed with rheumatoid arthritis by practitioner at the [facility] 2 weeks ago. He has an appointment to see hospital intern at [facility]. He was placed on no medication for pain. He denies fever, chills night sweats. He does report myalgias, arthralgias and swelling of his extremities. He denies headache, visual, ocular auditory symptoms. He denies cardiac respiratory symptoms. He does report significant left shoulder pain with marked increase in pain with use. He denies GI or symptoms. Prior similar symptoms: Yes Recent Illness/Hospitalization: Yes - Past Medical History (1) Rheumatoid arthritis Status: Acute (2) Avascular necrosis of left femoral head Status: Acute (3) Nicotine dependence Status: Chronic Past Medical History - Allergies and Home Meds Allergies/Adverse Reactions: Allergies naproxen [From Naprosyn] Adverse Reaction (Verified 11/14/18 09:17) Upset Stomach BEE VENOM Allergy (Uncoded 11/14/18 09:17) Anaphylaxis ROOT BEER Allergy (Uncoded 11/14/18 09:17) Hives Primary Care Physician: Hue Ahuja MD [Primary Care Provider] - Prior records reviewed: Yes Surgical History: appendectomy, arthroscopy, knee, total hip arthroplasty, - - Facial reconstructive surgery. Lives: Spouse/ Significant Other Smoking Status: Current every day smoker Alcohol: None - Family History Maternal Family History: Reports: No pertinent history Paternal Family History: Reports: No pertinent history Review of Systems General: Denies: Chills, Fever, Sweats Eyes: Denies: Visual changes - bilaterally, Blurred Vision - bilaterally, Diplopia ENT: Denies: Rhinorrhea, Sore throat Cardiovascular: Denies: Chest pain, Palpitations Respiratory: Denies: Dyspnea, Cough, Dyspnea on exertion Gastrointestinal: Denies: Abdominal pain, Nausea, Vomiting, Diarrhea, Melena, Hematochezia Genitourinary: Denies: Dysuria, Hematuria, Frequency Musculoskeletal: Reports: Myalgias, Arthralgias, Back pain, Swelling, Extremity Pain Skin: Denies: Rash, Wounds Neurological: Denies: Headache, Weakness, Numbness Psych: Reports: Depression Hematologic: Denies: Easy bruising, Easy bleeding Allergy: Denies: Uticaria, Swelling of the mouth, Swelling of the tongue Physical Exam Vital Signs/Narrative: Vital Signs Temp Pulse Resp BP Pulse Ox 11/14/18 09:14 97.8 F 83 18 131/87 H 99 Inital Vital Signs reviewed: Yes General: Well nourished, Well developed, No Acute Distress Head: Normocephalic, Atraumatic Eyes: Perrl, EOMI ENT: Moist mucous membranes, No rhinorrhea Neck: Supple, Nontender Cardiovascular: Regular rate, Regular rhythm, No murmurs Respiratory: No distress, CTA bilaterally, Chest nontender Abdomen: Soft, Nontender, Nondistended, Normal bowel sounds Back: Nontender, Normal Inspection Extremities: Tenderness, Edema, - - Patient has swelling of the right and left hand with joint swelling and bogginess. There is no warmth or erythema over the joints of his right digits or hand. Examination lower extremity reveals no joint swelling. Skin: Normal color, No rash Neurological: Alert, Oriented x3, Cranial nerves II-XII grossly intact, Normal Strength, Normal Sensation, Normal DTR Psychological: Normal Mood, Depressed Diagnostic/Tx/Re-eval - Medical Decision Making With recent diagnosis of rheumatoid arthritis and increased pain with joint swelling will treat with IV Toradol and p.o. prednisone. Will reassess in 30 to 60 minutes. I was informed at 1020 that patient states he did not get much relief with medications prescribed. Patient was informed at 1040 that since he has had problems for months that nothing will take away the pain immediately. Will prescribe anti-inflammatory since she has no contra indication and burst of prednisone. If this is not effective he was instructed to follow-up with his primary care doctor to help manage his pain until he is seen by a hospital intern in February. ED Disposition - Plan for ED Patient: Diagnosis: Rheumatoid arthritis flare Instructions: ED Arthritis Rheumatoid Prescriptions: Prednisone [Deltasone] 40 mg PO DAILY #10 tablet Naproxen [Naprosyn] 500 mg PO BID #20 tablet Referrals: Hue Ahuja MD [Primary Care Provider] - 1 Week if not improving Additional Instructions: Your prescription was electronically transmitted to your designated pharmacy of choice, [facility] located on [facility].
[2018-11-14] MEDS: predniSONE 20 MG Tablet 60 MG PO (09:54)
[2018-11-14] MEDS: Ketorolac 15 MG/ML Vial IV (09:54)
== END 2018-11-14 10:48 | disposition home or self-care (01) ==
LOC: ED 10:04
PROVIDERS: Emergency Provider Emergency Medicine; Family Provider Internal Medicine; PCP Internal Medicine
DX: M06.9 Rheumatoid arthritis, unspecified (principal); M25.512 Pain in left shoulder; M87.9 Osteonecrosis, unspecified; F32.9 Major depressive disorder, single episode, unspecified; F17.200 Nicotine dependence, unspecified, uncomplicated; Z79.899 Other long term (current) drug therapy; Z79.82 Long term (current) use of aspirin; Z79.1 Long term (current) use of non-steroidal anti-inflammatories (NSAID); Z88.6 Allergy status to analgesic agent
CPT/HCPCS: 96374; 99282; A4216

== ENCOUNTER 2018-12-19 12:08 | Emergency (ER) | payer MEDICAID, SELFPAY ==
[2018-12-19 12:09] VITALS: BP 152/87; PULSE 115; RESP 16; TEMP 36.8; O2SAT 98; BMI 29.7
--- NOTE | 2018-12-19 12:22 | CT_ITS ---
STUDY: CT FACIAL BONES WITHOUT CONTRAST REASON FOR EXAM: Male, 53 years old. Right facial injury. RADIATION DOSAGE (If Supplied By Facility): CTDIvol = ( 29.38 ) mGy, DLP = ( 694.38 ) mGycm TECHNIQUE: The patient was scanned in a multi detector CT scanner. Sagittal and coronal images were reconstructed. Individualized dose optimization techniques were used for this CT. COMPARISON: None. FINDINGS: Normal soft tissue structures. Normal orbital kapadia and orbital contents. Normal nasal bones and anterior nasal spine. Nasal septal deviation towards the right side. Normal facial bones. There is no demonstrated fracture. Normal visualized paranasal sinuses. CT/Sinus/Facial Bone IMPRESSION: Normal unenhanced CT of the facial bones. Electronically Signed: Davis Honeycutt, at 13:03 EDT , Service support ,
--- NOTE | 2018-12-19 12:22 | CT_ITS ---
STUDY: CT BRAIN WITHOUT CONTRAST REASON FOR EXAM: Male, 53 years old. Injury to the right eye with loss of consciousness. Headaches. RADIATION DOSAGE (If Supplied By Facility): CTDIvol = ( 44.99 ) mGy, DLP = ( 779.24 ) mGycm TECHNIQUE: Transaxial CT imaging of the brain was performed without administration of intravenous contrast material. Individualized dose optimization techniques were used for this CT. COMPARISON: Comparison is made with prior study dated April 16, 2010. FINDINGS: Normal soft tissue structures. Normal calvarium. Normal size ventricles and extra-axial spaces for the patient's age. Normal white matter tracts of the cerebral hemispheres. Normal basal ganglia and thalami. Normal brainstem. Normal cerebellum. There is no intracranial hemorrhage. There are no findings of an acute ischemic infarction. Normal visualized paranasal sinuses. Nasal septal deviation towards the right side. CT/Brain/Head without Contrast IMPRESSION: Normal unenhanced CT scan of the brain. Electronically Signed: Davis Honeycutt, at 13:02 EDT , Service support ,
--- NOTE | 2018-12-19 12:27 | ED.DCSUM_ITS ---
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 Negative for: Parasthesias, Weakness, Inability to ambulate Narrative: Patient states he was on a ladder and was knocked back but did not fall off a ladder, but thinks he may have had loss of consciousness. It sounds like he may have just been dazed. He states this occurred for about 20 seconds. He was wearing sunglasses that are also used for safety, he states the tree branch hit him in the glasses so hard, that the shatter proof glasses broke and were embed ded in the skin of his face near his eye. He sustained a laceration. He had some minor bleeding from that, he was able to get it to stop quite easily. He takes no anticoagulants. He states his eye hurts and he is having trouble seeing out of that eye, partially because his face is swollen at the site of the injury. He denies any other injury. He has a headache and some nausea but no vomiting. No focal neurologic symptoms. Tetanus Immunization: <5 years - Past Medical History (1) Avascular necrosis of left femoral head Status: Chronic (2) Rheumatoid arthritis Status: Chronic (3) Old myocardial infarct Status: Chronic Past Medical History - Allergies and Home Meds Allergies/Adverse Reactions: Allergies naproxen [From Naprosyn] Adverse Reaction (Verified 12/19/18 12:13) Upset Stomach BEE VENOM Allergy (Uncoded 12/19/18 12:13) Anaphylaxis ROOT BEER Allergy (Uncoded 12/19/18 12:13) Hives Primary Care Physician: William Castillo MD [STAFF PHYSICIAN] - 3-5 Days if not improving (for corneal abrasion/scratch) Hue Ahuja MD [Primary Care Provider] - 1 Week if not improving Surgical History: appendectomy, arthroscopy, knee, total hip arthroplasty, - - Facial reconstructive surgery. Lives: With Family Smoking Status: Current every day smoker Drugs: None - Family History Maternal Family History: Reports: No pertinent history Paternal Family History: Reports: No pertinent history Review of Systems Eyes: Reports: Blurred vision - right - and right eye pain. Denies: Visual thurston ges - left, Diplopia ENT: Denies: Bilateral ear pain, Rhinorrhea, Sore throat Cardiovascular: Denies: Chest pain, Palpitations Respiratory: Denies: Dyspnea, Cough Gastrointestinal: Reports: Nausea. Denies: Vomiting Musculoskeletal: Denies: Neck pain, Back pain, Extremity Pain Skin: Reports: Wounds. Denies: Rash Neurological: Reports: Headache. Denies: Weakness, Numbness Physical Exam Vital Signs/Narrative: Vital Signs Temp Pulse Resp BP Pulse Ox 12/19/18 12:09 98.2 F 115 H 16 152/87 H 98 Inital Vital Signs reviewed: Yes General: Well nourished, Well developed Head: Normocephalic, Trauma - right periorbital area swollen, tender, laceration. no crepitance/depression/deformity. Eyes: Perrl, EOMI - With pain in right eye, but no extraocular entrapment., - - No right globe gross evidence of trauma. Under slit lamp, anterior chamber is deep and quiet, no hyphema. With fluorescein staining, there is curvilinear dye uptake, negative Agustin. Visual acuity: Left 20/25, right 20/50, both 20/25. ENT: TM's clear, No hemotympanum or drainage, Nasal trauma - minor abrasion, nontender, - - Midface stable. No infraorbital hypoesthesia, although there is right maxillary tenderness. Right periorbital swelling and tenderness, with laceration medially that is irregular, 1.5 cm, partial-thickness and clean- appearing without contamination, without active bleeding or tissue loss, just medial and caudal to the eyebrow, onto part of the nasal bridge, does not involve the eyelid or medial canthus. No epistaxis.. Negative for: Nasal septal hematoma Neck: Nontender, Full ROM Respiratory: No distress, Chest nontender Skin: Trauma - See HEENT. No other evidence of trauma. Neurological: Alert, Oriented x3, Cranial nerves II-XII grossly intact, Normal Strength, Normal Sensation, Normal Gait Psychological: Normal affect, Normal Mood - Glascow Coma Scale Eye Opening: Spontaneous Motor: Obeys Commands Verbal: Oriented Coma Scale Total: 15 Diagnostic/Tx/Re-eval Clinical Impression(s) from Imaging Studies Brain CT 12/19/18 12:22 IMPRESSION: Normal unenhanced CT scan of the brain. Electronically Signed: Davis Honeycutt, at 13:02 EDT , Service support , Facial/Sinus 12/19/18 12:22 IMPRESSION: Normal unenhanced CT of the facial bones. Electronically Signed: Davis Honeycutt, at 13:03 EDT , Service support , - Medical Decision Making Imaging is reassuring showing no acute fractures or traumatic brain injury. He was given a [place] which helped a little with his discomfort. He is additionally given Toradol prior to discharge. Slit-lamp exam shows what appears to be a corneal abrasion, he does not appear to be a betty laceration, there is not appear to be any globe penetration. He is advised to follow-up with ophthalmology, and his primary care doctor if concussion symptoms last longer than a week. His laceration was repaired successfully with Dermabond. Patient was given prescriptions for eye ointment and analgesics. I received a call from a retail pharmacy shortly thereafter discharge saying that the patient is in pain management and is on Butrans patches, asking if I was aware of that. Certainly, the patient did not alert me to the fact that he was in pain management upon receiving narcotics in the emergency department or the prescription. I requested that he do not fill the [place], and advised the patient he will have to take the Naprosyn that is on his medication list instead, and follow-up with his pain management doctor if needed. Procedures - Lacerations face Length: 1.5 cm Depth: Skin Shape: irregular Prep: Annetta Laceration Repair: Dermabond Comment: well-approximated, no complications. care taken not to get dermabond in eye. ED Disposition - Plan for ED Patient: Disposition: Home or Assisted Living Diagnosis: Concussion without loss of consciousness, initial encounter, Facial contusion, Facial laceration, Right corneal abrasion Instructions: CONCUSSION, No Wake Up, Corneal Abrasion, LACERATION, Face (Skin Glue) Prescriptions: Erythromycin Ophthalmic 1 applic RIGHT EYE TID 5 Days #1 tube Prescription Printed Hydrocodone Bitart/Apap 5-325 [[place] 5MG-325MG] 1 tab PO Q4H PRN PRN 2 Days #10 tab PRN Reason: Pain Prescription Printed Referrals: Hue Ahuja MD [Primary Care Provider] - 1 Week if not improving William Castillo MD [STAFF PHYSICIAN] - 3-5 Days if not improving (for corneal abrasion/scratch)
[2018-12-19] MEDS: HYDROcodone Bitartrate/Apap 5/325 Tablet PO (12:30)
[2018-12-19] MEDS: Ondansetron ODT 4 MG Tablet 8 MG PO (12:30)
[2018-12-19] MEDS: Fluorescein 1 MG STRIP 1 STRIP RIGHT EYE (12:30)
[2018-12-19 12:48] VITALS: RESP 16
--- NOTE | 2018-12-19 14:53 | ED.RN ---
PT VERBALIZE FRUSTATION REGARDING THE WAIT.
[2018-12-19] MEDS: Ketorolac 60 MG/2 ML Vial IM (15:00)
--- NOTE | 2018-12-19 15:21 | ED.RN ---
1515 computer system issues. pt left without discharge papers. pt called, pt coming back to get d/c papers.
--- NOTE | 2018-12-19 15:23 | ED.RN ---
d/c and prescription given to .
== END 2018-12-19 15:25 | disposition home or self-care (01) ==
PROVIDERS: Emergency Provider Emergency Medicine; Family Provider Internal Medicine; PCP Internal Medicine
DX: S06.0X0A Concussion without loss of consciousness, initial encounter (principal); S01.81XA Laceration without foreign body of other part of head, initial encounter; S05.01XA Injury of conjunctiva and corneal abrasion without foreign body, right eye, initial encounter; W22.8XXA Striking against or struck by other objects, initial encounter; Y93.9 Activity, unspecified; Y92.9 Unspecified place or not applicable; Y99.9 Unspecified external cause status; M87.052 Idiopathic aseptic necrosis of left femur; M06.9 Rheumatoid arthritis, unspecified; I25.2 Old myocardial infarction; F17.200 Nicotine dependence, unspecified, uncomplicated; Z88.6 Allergy status to analgesic agent
CPT/HCPCS: 12011; 70450; 70486; 96372; 99283

== ENCOUNTER 2019-02-07 15:35 | Emergency (ER) | payer MEDICAID, SELFPAY ==
[2019-02-07 15:36] VITALS: BP 161/95; PULSE 122; RESP 30; TEMP 36.8; O2SAT 97; BMI 29.0
[2019-02-07] MEDS: DiphenhydrAMINE 50 MG/ML Syringe 25 MG IV (15:53)
[2019-02-07] MEDS: predniSONE 20 MG Tablet 60 MG PO (15:53)
[2019-02-07 15:58] VITALS: O2SAT 97
--- NOTE | 2019-02-07 16:05 | ED.VISSUMM ---
- ER Visit Summary Date of Service: 02/07/19 Chief Complaint: Allergic reaction History of Present Illness: The patient is a 53 M who presents with an allergic reaction to bee stings. Patient states he was cleaning and there was a bees nest in the trash can. Patient states he was stung several times in his neck, face, arms, and back. Patient states he has a prior history of allergy to bee stings. Patient states his insurance will not cover an EpiPen so he does not have an EpiPen. Patient admits to some swelling sensation of his tongue and throat. Patient admits to some mild shortness of breath. Physical Examination: Vital signs are stable except for tachycardia of 122 and tachypnea of 30. Patient is afebrile. Patient is in no acute distress. Oral mucosa is pink and moist. Oropharynx is clear. Airway is patent. Neck is supple. Trachea is midline. There is no JVD noted. Heart was regular rate and rhythm. Lungs are clear and equal bilaterally. Abdomen is soft. Bowel sounds are normal. There is no tenderness. Skin is warm and dry. There are few urticaria noted. Cranial nerves II through XII are intact. There are no focal motor or sensory deficits noted. Emergency Department Course and Treatment: Patient was given subcu epinephrine here. Patient was given IV Benadryl and Pepcid. Patient was given oral prednisone. Patient was feeling better on reevaluation. Patient was given a prescription for short-term course of prednisone. Patient was also given prescription for EpiPen. Patient was instructed to follow-up with his primary care physician in 3 to 5 days. Patient understood and was agreeable with the plan. All questions were answered. Disposition: Discharge home Impression: Allergic reaction to bee sting This note was generated with PiAuto dictation software. It may contain incorrect words, spelling, and punctuation that were not noted in review of the chart prior to signing ED Disposition - Plan for ED Patient: Disposition: Home or Assisted Living Diagnosis: Allergic reaction to bee sting Instructions: ALLERGIC REACTION, Insect (General) Prescriptions: Epi Pen (for allergic rxn) 0.3 mg IM X1 #3 syringe Transmission Status: Pending to [facility] predniSONE tablet 60 mg PO DAILY #12 tab Transmission Status: Pending to [facility] Referrals: Hue Ahuja MD [Primary Care Provider] - 3-5 Days Additional Instructions: Keep 1 EpiPen with you at all times. Keep one EpiPen at home. Keep one EpiPen in your car.
[2019-02-07 16:37] VITALS: BP 137/81; PULSE 109; RESP 16; O2SAT 94
[2019-02-07 16:57] VITALS: BP 151/89; PULSE 100; RESP 15; O2SAT 100
--- NOTE | 2019-02-07 16:57 | ED.RN ---
PT GIVEN WRITTEN AND VERBAL DISCHARGE INSTRUCTIONS AND EDUCATED ON HOME GOING PRESCRIPTIONS. PT VERBALIZES UNDERSTANDING AND DENIES ANY FURTHER ORDERS. PT IV D/C AND COVERED WITH 2X2 GAUZE AND PAPER TAPE. PT D/C FROM SENIOR TEST ANALYST. AMBULATES OUT OF DEPT WITH S/O AND FRIEND.
--- NOTE | 2019-02-07 17:13 | CM.ED ---
Social Work Attempted to follow up with patient. Patient discharge prior to this social work program coordinator being able to see patient. Referral due to patient not being able to afford Epipen. Per patient insurance Epipen should be covered. Ruslan ARAIZA, MAHI
== END 2019-02-07 16:59 | disposition home or self-care (01) ==
PROVIDERS: Emergency Provider Emergency Medicine; Family Provider Internal Medicine; PCP Internal Medicine
DX: T63.441A Toxic effect of venom of bees, accidental (unintentional), initial encounter (principal); L50.0 Allergic urticaria; R00.0 Tachycardia, unspecified; R06.82 Tachypnea, not elsewhere classified; R06.02 Shortness of breath; W57.XXXA Bitten or stung by nonvenomous insect and other nonvenomous arthropods, initial encounter; Y93.E9 Activity, other interior property and clothing maintenance; Y92.9 Unspecified place or not applicable; Y99.9 Unspecified external cause status; M06.9 Rheumatoid arthritis, unspecified; Z72.0 Tobacco use; Z79.82 Long term (current) use of aspirin; Z79.1 Long term (current) use of non-steroidal anti-inflammatories (NSAID); Z79.52 Long term (current) use of systemic steroids; Z79.899 Other long term (current) drug therapy
CPT/HCPCS: 96372; 96374; 96375; 99285; A4216; J3490

== ENCOUNTER 2019-02-13 19:21 | Inpatient (IN) | payer MEDICAID, SELFPAY ==
[2019-02-13 19:21] VITALS: BP 152/81; PULSE 99; RESP 20; TEMP 36.8; O2SAT 98; BMI 30.2
--- NOTE | 2019-02-13 20:19 | EKG12_ITS ---
Test Reason : Blood Pressure : / mmHG Vent. Rate : 079 BPM Atrial Rate : 079 BPM P-R Int : 120 ms QRS Dur : 074 ms QT Int : 344 ms P-R-T Axes : 039 065 051 degrees QTc Int : 394 ms Normal sinus rhythm Normal ECG Confirmed by TONEY CHENEY ([id number]), film and video editor OSCAR QUEZADA ([id number]) on 02/19/2019 2:10:39 PM Referred By: CG Confirmed By:TONEY CHENEY
--- NOTE | 2019-02-13 20:20 | US_ITS ---
HISTORY: RUQ PAIN- SEVERE X 1 DAY TECHNIQUE: Francisco scale and color doppler imaging was performed of the pancreas, liver, and gallbladder. COMPARISON: CT scan of the abdomen and pelvis from April 30, 2018 FINDINGS: # of images incl. paperwork: 148 The liver is slightly coarse in echotexture. Within the anterior aspect of the liver, likely the medial segment of the left hepatic lobe, based on the recent CT scan, rather than the indentation by the business functional analyst, there is a 2.2 x 1.4 cm echogenic shadowing lesion consistent with the lesion seen on the CT scan on April 25, 2018 that was hypodense with calcification suggesting a cyst with some milk of calcium within its lumen. This lesion is unchanged accounting for differences in imaging modalities.. Within the gallbladder lumen and there is an echogenic shadowing structure measuring 15 x 8 mm, likely representing a gallstone within the lumen of the gallbladder. Several additional gallstones are demonstrated within the lumen of the gallbladder. A tiny gallstone is suggested possibly on the previous CT scan. The current exam demonstrates something larger. No gallbladder wall thickening or biliary dilatation. Gallbladder wall measures 3 mm. Common bile duct measures 4 mm. No tenderness upon insonation the gallbladder. Visualized pancreas is normal in appearance. Right kidney is normal in size and appearance. Visualized abdominal aorta has normal caliber. IVC is patent. Hepatopedal flow is present within the central portal vein. US/Gallbladder IMPRESSION: Many gallstones within the gallbladder lumen.. at 2207 Reported and signed by: Juan Francisco Keyes MD Electronically Signed: Juan Francisco Keyes MD at 22:06 EDT Tel , Service support ,
[2019-02-13] MEDS: Morphine 4 MG/ML Syringe IV ×2 (20:36→22:21)
[2019-02-13] MEDS: 0.9% Normal Saline 1,000 ML 999 ML IV (20:36)
[2019-02-13] MEDS: Ondansetron 4 MG/2 ML Vial IV (20:37)
--- NOTE | 2019-02-13 20:39 | ED.VIS.GEN ---
History of Present Illness Chief Complaint: Abd Pain Informant: Patient Onset: Today Context: Sudden Onset Timing: Intermittent Current Severity: Severe Maximum Severity: Severe Narrative: Patient is a 53-year-old male with history of COPD, hypothyroid, hepatitis C, bipolar disorder, [place], with recent diagnosis of gallstones presenting with worsening abdominal pain. Patient states the pain is in the center of his abdomen/right upper quadrant. He states he has been having intermittent pain in that area for the past few weeks however today the pain became significantly more severe. It worsened after he ate lunch which was grilled chicken from [employer]. Patient had associated vomiting. He is also had sweating. He knows he has had 3 soft bowel movements today. He states he feels bloated. Patient denies any alcohol or illicit drug use. He denies any chest pain or occult he breathing. He notes he feels slightly short of breath because of his COPD and his abdominal pain. He denies any other complaints at this time. Past Medical History - Allergies and Home Meds Allergies/Adverse Reactions: Allergies naproxen [From Naprosyn] Adverse Reaction (Verified 02/13/19 19:23) Upset Stomach BEE VENOM Allergy (Uncoded 02/13/19 19:23) Anaphylaxis ROOT BEER Allergy (Uncoded 02/13/19 19:23) Hives Past Medical History: - - Hepatitis C, rheumatoid arthritis, bipolar disorder, hypothyroid, COPD Surgical History: appendectomy, arthroscopy, knee, total hip arthroplasty, - - Facial reconstructive surgery. Smoking Status: Current every day smoker - Family History Maternal Family History: Reports: No pertinent history Paternal Family History: Reports: No pertinent history Review of Systems All systems negative except as indicated General: Reports: Malaise Respiratory: Reports: Dyspnea Gastrointestinal: Reports: Abdominal pain, Nausea, Vomiting. Denies: Diarrhea Physical Exam Vital Signs/Narrative: Vital Signs Temp Pulse Resp BP Pulse Ox 02/13/19 19:21 98.3 F 99 20 H 152/81 H 98 Inital Vital Signs reviewed: Yes General: Well nourished, Well developed, No Acute Distress Head: Normocephalic, Atraumatic Eyes: Perrl, EOMI ENT: Moist mucous membranes, No rhinorrhea Neck: Supple, Nontender Cardiovascular: Regular rate, Regular rhythm, No murmurs Respiratory: No distress, CTA bilaterally, Chest nontender Abdomen: Soft, Normal bowel sounds, Tender, Li's sign. Negative for: Nontender, Nondistended, Guarding, Rebound tenderness, Pulsatile mass Back: Nontender, Normal Inspection. Negative for: CVA tenderness Extremities: Nontender, No edema Skin: Normal color, No rash Neurological: Alert, Oriented x3, Cranial nerves II-XII grossly intact, Normal Strength, Normal Sensation Psychological: Normal affect, Normal Mood Diagnostic/Tx/Re-eval Clinical Impression(s) from Imaging Studies Gallbladder Ultrasound 02/13/19 20:20 IMPRESSION: Many gallstones within the gallbladder lumen.. at 2207 Reported and signed by: Juan Francisco Keyes MD Electronically Signed: Juan Francisco Keyes MD at 22:06 EDT Tel , Service support , Laboratory Data 02/13/19 02/13/19 02/13/19 20:14 20:14 22:00 WBC 20.1 H RBC 4.47 L Hgb 14.6 Hct 43.4 MCV 97.1 H MCH 32.7 H MCHC 33.6 RDW Std Deviation 49.8 H RDW Coeff of Re 13.9 Plt Count 240 MPV 9.3 Immature Gran % (Auto) 1.100 H Neut % (Auto) 75.4 H Lymph % (Auto) 17.0 L [place] % (Auto) 6.3 Eos % (Auto) 0.1 Baso % (Auto) 0.1 Absolute Neuts (auto) 15.1 H Absolute Lymphs (auto) 3.42 Nucleated RBC % 0 Differential Comment SCANNED Platelet Estimate ADEQUATE RBC Morphology NORM C+C Sodium 141 Potassium 4.2 Chloride 109 H Carbon Dioxide 27.0 Anion Gap 5 BUN 21 H Creatinine 0.99 Estim Creat Clear Calc 79.66 Est GFR (MDRD) Af Amer 102 Est GFR (MDRD) Non-Af 85 BUN/Creatinine Ratio 21.2 H Glucose 122 H Lactic Acid Calcium 8.1 L Total Bilirubin 0.50 Direct Bilirubin 0.13 AST 31 ALT 97 H Alkaline Phosphatase 61 Troponin I < 0.015 Total Protein 5.3 L Albumin 2.7 L Globulin 2.6 Lipase 70 L Urine Color Yellow Urine Clarity Sl. Cloudy Urine pH 7.0 Ur Specific [place] 1.010 Urine Protein Negative Urine Glucose (UA) Normal Urine Ketones Negative Urine Occult Blood Negative Urine Nitrite Negative Urine Bilirubin Negative Urine Urobilinogen Normal Ur Leukocyte Esterase Negative Urine RBC 0 SEEN Urine WBC 0 SEEN Ur Squamous Epith Cells 0-5 SEEN Urine Bacteria 0 SEEN Urine Mucus 0 SEEN 02/13/19 22:55 WBC RBC Hgb Hct MCV MCH MCHC RDW Std Deviation RDW Coeff of Re Plt Count MPV Immature Gran % (Auto) Neut % (Auto) Lymph % (Auto) [place] % (Auto) Eos % (Auto) Baso % (Auto) Absolute Neuts (auto) Absolute Lymphs (auto) Nucleated RBC % Differential Comment Platelet Estimate RBC Morphology Sodium Potassium Chloride Carbon Dioxide Anion Gap BUN Creatinine Estim Creat Clear Calc Est GFR (MDRD) Af Amer Est GFR (MDRD) Non-Af BUN/Creatinine Ratio Glucose Lactic Acid 1.8 Calcium Total Bilirubin Direct Bilirubin AST ALT Alkaline Phosphatase Troponin I Total Protein Albumin Globulin Lipase Urine Color Urine Clarity Urine pH Ur Specific [place] Urine Protein Urine Glucose (UA) Urine Ketones Urine Occult Blood Urine Nitrite Urine Bilirubin Urine Urobilinogen Ur Leukocyte Esterase Urine RBC Urine WBC Ur Squamous Epith Cells Urine Bacteria Urine Mucus Diagnostic Data Gallbladder Ultrasound 02/13/19 20:20 IMPRESSION: Many gallstones within the gallbladder lumen.. at 2207 Reported and signed by: Juan Francisco Keyes MD Electronically Signed: Juan Francisco Keyes MD at 22:06 EDT Tel , Service support , Past Medical History (Last Reviewed 03/22/18 @ 16:15 by Dk Shannon MD) Nicotine dependence (Chronic) Old myocardial infarct (Chronic) Bipolar disorder (Chronic) Hepatitis C, chronic (Chronic) Hypothyroidism (Chronic) NH lymphoma (Chronic) Panic anxiety syndrome (Chronic) chronic obstructive lung disease (Chronic) Past Surgical History (Last Reviewed 03/22/18 @ 16:15 by Dk Shannon MD) H/O arthroscopic knee surgery (Resolved) H/O total hip arthroplasty (Resolved) History of appendectomy (Resolved) History of left heart catheterization (Resolved) facial reconstructive surgery (Resolved) - Rhythm Strip Rhythm Strip: Sinus Rhythm Rate: 79 Ectopy: None - EKG Initial EKG Interpretation: - - Normal intervals, normal axis, normal ST segments - Medical Decision Making She was evaluated for abdominal pain that significantly worsened today. He states he has a history of gallstones. Repeat ultrasound was obtained for concern of acute cholecystitis. Patient does not have findings consistent with acute cholecystitis on ultrasound he does have significant pain as well as multiple gallstones. Patient does have a leukocytosis. This is confounded by the fact the patient does have chronic leukocytosis. Patient does require multiple doses of IV pain medication for his symptoms as well as Zofran. He is given IV fluids. He is evaluated by surgery on-call, Dr. Scanlon who will admit the patient for cholecystectomy. No other obvious source of his symptoms or infection is found. Patient is agreeable with this plan. Patient is stable to the general medical floor at time of disposition. ED Disposition - Plan for ED Patient: Disposition: Acute Care Hospital [facility] Diagnosis: Symptomatic cholelithiasis, Leukocytosis
[2019-02-13 20:52] LABS: AST(SGOT) 31 U/L (15-37); Alanine Aminotransfer ALT/SGPT 97 U/L (16-61); Albumin, Serum 2.7 g/dL (3.2-5.0); Alkaline Phosphatase 61 U/L (45-117); Anion Gap 5 (5-15); BUN 21 mg/dL (7-18); BUN/Creat Ratio 21.2 RATIO (10-20); Bilirubin, Direct 0.13 mg/dL (0.00-0.30); Calcium,Total 8.1 mg/dL (8.5-10.1); Chloride 109 mmol/L (98-107); Creatinine, Serum 0.99 mg/dL (0.70-1.30); EST Glomerular Filtration Rate 85 mL/min (>60); Est Glom Filt Rate - Afr Amer 102 mL/min (>60); Estimated Creatinine Clearance 79.66 ml/min; Globulin 2.6 g/dL (2.2-4.2); Glucose 122 mg/dL (74-106); Lipase 70 U/L (73-393); Potassium 4.2 mmol/L (3.5-5.1); Protein, Total 5.3 g/dL (6.4-8.2); Sodium Level 141 mmol/L (136-145)
[2019-02-13 20:53] LABS: Absolute Lymphocyte Count 3.42 X10^3/uL (0.83-4.51); Absolute Neutrophil Count 15.1 X10^3/uL (2.0-7.7); Basophil# 0.03 X10^3/uL; Basophil% 0.1 % (0-1); Eosinophil# 0.02 X10^3/uL; Eosinophils% 0.1 % (0-5); Hematocrit 43.4 % (40-54); Hemoglobin 14.6 g/dL (13.0-16.5); Lymphocyte # 3.42 X10^3/ul (4.0); Mean Corp Hgb Conc 33.6 g/dL (32-36); Mean Corpuscular Hgb 32.7 pg (27.0-32.0); Mean Corpuscular Volume 97.1 fL (80-94); Mean Platelet Vol. 9.3 fl (6.2-12.0); Monocyte# 1.27 X10^3/uL; Monocyte% 6.3 % (0-10); NRBC Flagged by Analyzer 0 % (0-5); Neutrophil # 15.12 X10^3/uL (2.7-7.7); Neutrophil % 75.4 % (47-70); POSITIVE COUNT YES; Platelet Count 240 K/mm3 (150-450); RBC Distribution Width CV 13.9 % (11.6-14.6); RBC Distribution Width SD 49.8 fl (35.1-43.9); Red Blood Count 4.47 M/mm3 (4.6-6.2); White Blood Count 20.1 K/mm3 (4.4-11.0)
[2019-02-13 20:54] LABS: Differential Indicated SCAN CRITERIA MET
[2019-02-13 21:29] LABS: Differential Comment SCANNED; Platelet Estimate ADEQUATE (ADEQ); Red Cell Morphology NORM C+C NORMAL (NORM C&C)
[2019-02-13 22:05] LABS: Bacteria 0 SEEN /hpf (None Seen); Mucous, Urine 0 SEEN /hpf (<or=2+); Red Blood Cells-Urine 0 SEEN /hpf (0-5); White Blood Cells 0 SEEN /hpf (0-5)
[2019-02-13 22:07] LABS: Color, Urine Yellow (Yellow); Glucose, Dipstick Normal (Normal); Ketone-Dipstick Negative (Negative); Leukocyte Esterase-Dipstick Negative /ul (Negative); Nitrite-Dipstick Negative (Negative); Occult Blood-Urine Negative /ul (Negative); Protein-Dipstick Negative (Negative); Urine Bilirubin Dipstick Negative (Negative); Urine Clarity Sl. Cloudy (Clear); Urine Urobilinogen Normal (Normal)
[2019-02-13 22:15] LABS: Squamous Epithelial Cells - UA 0-5 SEEN /hpf (0-5)
[2019-02-13 22:28] VITALS: BP 124/80; PULSE 89; RESP 16; TEMP 36.7; O2SAT 97
[2019-02-13 23:24] LABS: Lactic Acid 1.8 mmol/L (0.4-2.0)
[2019-02-13 23:45] VITALS: BP 143/92; PULSE 73; RESP 15; O2SAT 96
[2019-02-14] VITALS (11 sets, daily range): BP systolic 112–140; BP diastolic 74–91; PULSE 55–93; RESP 16–20; TEMP 36.3–36.8; O2SAT 92–100; BMI 30.2; BMI 30.3
--- NOTE | 2019-02-14 00:42 | HP.PCM_ITS ---
History of Present Illness Date of Admission: 02/14/19 Chief Complaint: RUQ pain The patient is a 53 year old M with a known history of gallstones who presents with worsening RUQ pain felt to be consistent with biliary colic. Repeat ultrasound demonstrated cholelithiasis. The patient has an elevated WBC count, but has a chronically elevated WBC count. the patient noted episodic right upper quadrant pain for at least the last few weeks. The pain is more significant after eating food. He awoke yesterday morning in the middle of the night after eating he was uncertain what with more pain in his right upper quadrant radiating through to his back. the patient had some upper abdominal symptoms for some time. He underwent right upper quadrant ultrasound on January 25, 2019 which demonstrated cholelithiasis and gallbladder wall thickening.there was noted to be a complex cyst within the liver and course hepatic echotexture. she presented to [facility] emergency room with worsening pain symptoms.again the laboratory studies demonstrated a white blood cell count of 20,000. It should be note his white blood cell count over the last year has been persistently elevated range 13-22,000. His liver enzymes were unremarkable. He has a history of Hepatitis C secondary to IVDA, last used 7 years previously. He has a history of Non Hodgkin lymphoma currently in remission. He smokes, He denies alcohol or other substances. PMHx - hypothyroidism, ? prior ID but EKG normal sinus and cardiac cath last fall with clean coronaries. history of PTSD. His only prior abdominal surgery is appendectomy. He has had multiple orthopedic surgeries. he is planning to have a knee replacement. He understands he is waiting to have treatment for his hepatitis C until after his knee replacement. he has chronic litchen simplex. Past Medical History Past Medical History (Chronic Problems): Chronic Problems (Last Reviewed 03/22/18 @ 16:15 by Dk Shannon MD) Avascular necrosis of left femoral head (Chronic) Rheumatoid arthritis (Chronic) Nicotine dependence (Chronic) Old myocardial infarct (Chronic) Medical History: Medical History (Last Reviewed 03/22/18 @ 16:15 by Dk Shannon MD) Nicotine dependence (Chronic) F17.200 Old myocardial infarct (Chronic) I25.2 Bipolar disorder F31.9 Hepatitis C, chronic B18.2 Hypothyroidism E03.9 NH lymphoma C85.90 Panic anxiety syndrome F41.0 chronic obstructive lung disease Allergies naproxen [From Naprosyn] Adverse Reaction (Verified 02/13/19 19:23) Upset Stomach BEE VENOM Allergy (Uncoded 02/13/19 19:23) Anaphylaxis ROOT BEER Allergy (Uncoded 02/13/19 19:23) Hives Home Medications: Ambulatory Orders Medication Instructions Recorded Levothyroxine [Synthroid] 112 mcg PO DAILY 07/10/16 [place] Carbonate [[place] 300 mg PO DAILY 07/10/16 Carbonate ER] Albuterol Sulfate [Proventil Hfa] 6.7 gm IH Q4H PRN 10/21/16 Gabapentin [Neurontin] 900 mg PO TIDCM 10/21/16 Nitroglycerin 0.4 mg SL PRN PRN 07/21/17 Prazosin HCl 2 mg PO PRN PRN 07/21/17 clindamycin 1 % lotion 1 unit TOPICAL DAILY 30 Days #120 03/21/18 ml cyanocobalamin (vit B-12) 1,000 1,000 syr IM QMONTH 30 Days #1 ml 03/21/18 mcg/mL injection solution ginseng 250 mg capsule 250 mg PO DAILY 03/22/18 predniSONE tablet 60 mg PO DAILY #15 tab 10/06/18 Epi Pen (for allergic rxn) 0.3 mg IM X1 #3 syringe 02/07/19 Buprenorphine [Butrans 5 Mcg/Hr] 10 mcg TD QWEEK 02/14/19 Chlorhexidine Gluconate [Hibiclens] 15 ml TP DAILY 02/14/19 Fluticasone/Vilanterol [Breo 1 each INHALATION DAILY 02/14/19 Ellipta 200-25 Mcg INH] Ginkgo Biloba 500 mg PO DAILY 02/14/19 Montelukast [Singulair] 10 mg PO QHS 02/14/19 Surgical History: Surgical History (Last Reviewed 18 @ 16:15 by Dk Shannon MD) H/O arthroscopic knee surgery Z98.890 H/O total hip arthroplasty Z96.649 History of appendectomy Z90.49 History of left heart catheterization Z98.890 facial reconstructive surgery Surgical History: appendectomy, arthroscopy, knee, total hip arthroplasty, - - Facial reconstructive surgery. Psychiatric History: Bipolar Smoking Status: Current every day smoker - *Family History Maternal History Items: No pertinent history Paternal History Items: No pertinent history Review of Systems Constitutional: Reports: Anorexia HEENT: Denies: Head Aches, Sinus Congestion, Sinus Drainage Cardiovascular: Denies: Chest Pain, Palpitations Respiratory: Denies: Cough, Shortness of breath at rest, Sputum production Gastrointestinal: Reports: Abdominal Pain. Denies: Nausea, Vomiting Genitourinary: Denies: Dysuria Musculoskeletal: Denies: Joint Pain, Joint Tenderness Skin: Denies: Rash, Wounds Neurological: Denies: Numbness, Tingling, Focal weakness Psychiatric: Denies: Anxiety, Depression, Homicidal Ideations, Suicidal Ideations Hematologic/ Lymphatic: Denies: Easy Bruising, Easy Bleeding VTE Information - Inpt Only VTE Present on Admission: No VTE Mechan Device Prophylaxis: SCD's VTE Pharm Prophylaxis ordered?: No Patient Problems: Active and Suspected Problems (Last Reviewed 03/22/18 @ 16:15 by Dk Shannon MD) Symptomatic cholelithiasis (Acute) Leukocytosis (Acute) - Physical Exam General: Alert, Oriented x3, Cooperative Lungs: Clear to auscultation, Normal air movement Cardiovascular: Regular rate, No murmurs Abdomen: Bowel Sounds Present, Soft, Tender - RUQ, + Li's sign Skin: Rash Present Vital Signs Temp Pulse Resp BP Pulse Ox 98.1 F 73 15 143/92 H 96 02/13/19 22:28 02/13/19 23:45 02/13/19 23:45 02/13/19 23:45 02/13/19 23:45 Oxygen Delivery Method Room Air Weight: 85.1 kg Body Mass Index (BMI) 30.2 Intake and Output for Last 24 Hours 02/12/19 02/13/19 02/14/19 23:59 23:59 23:59 Intake Total 1000 / 1000 Balance 1000 / 1000 Laboratory Tests Past 24 Hrs 02/13/19 02/13/19 02/13/19 20:14 20:14 22:00 WBC 20.1 H RBC 4.47 L Hgb 14.6 Hct 43.4 MCV 97.1 H MCH 32.7 H MCHC 33.6 RDW Std Deviation 49.8 H RDW Coeff of Re 13.9 Plt Count 240 MPV 9.3 Immature Gran % (Auto) 1.100 H Neut % (Auto) 75.4 H Lymph % (Auto) 17.0 L [place] % (Auto) 6.3 Eos % (Auto) 0.1 Baso % (Auto) 0.1 Absolute Neuts (auto) 15.1 H Absolute Lymphs (auto) 3.42 Nucleated RBC % 0 Differential Comment SCANNED Platelet Estimate ADEQUATE RBC Morphology NORM C+C Sodium 141 Potassium 4.2 Chloride 109 H Carbon Dioxide 27.0 Anion Gap 5 BUN 21 H Creatinine 0.99 Estim Creat Clear Calc 79.66 Est GFR (MDRD) Af Amer 102 Est GFR (MDRD) Non-Af 85 BUN/Creatinine Ratio 21.2 H Glucose 122 H Lactic Acid Calcium 8.1 L Total Bilirubin 0.50 Direct Bilirubin 0.13 AST 31 ALT 97 H Alkaline Phosphatase 61 Troponin I < 0.015 Total Protein 5.3 L Albumin 2.7 L Globulin 2.6 Lipase 70 L Urine Color Yellow Urine Clarity Sl. Cloudy Urine pH 7.0 Ur Specific [place] 1.010 Urine Protein Negative Urine Glucose (UA) Normal Urine Ketones Negative Urine Occult Blood Negative Urine Nitrite Negative Urine Bilirubin Negative Urine Urobilinogen Normal Ur Leukocyte Esterase Negative Urine RBC 0 SEEN Urine WBC 0 SEEN Ur Squamous Epith Cells 0-5 SEEN Urine Bacteria 0 SEEN Urine Mucus 0 SEEN 02/13/19 22:55 WBC RBC Hgb Hct MCV MCH MCHC RDW Std Deviation RDW Coeff of Re Plt Count MPV Immature Gran % (Auto) Neut % (Auto) Lymph % (Auto) [place] % (Auto) Eos % (Auto) Baso % (Auto) Absolute Neuts (auto) Absolute Lymphs (auto) Nucleated RBC % Differential Comment Platelet Estimate RBC Morphology Sodium Potassium Chloride Carbon Dioxide Anion Gap BUN Creatinine Estim Creat Clear Calc Est GFR (MDRD) Af Amer Est GFR (MDRD) Non-Af BUN/Creatinine Ratio Glucose Lactic Acid 1.8 Calcium Total Bilirubin Direct Bilirubin AST ALT Alkaline Phosphatase Troponin I Total Protein Albumin Globulin Lipase Urine Color Urine Clarity Urine pH Ur Specific [place] Urine Protein Urine Glucose (UA) Urine Ketones Urine Occult Blood Urine Nitrite Urine Bilirubin Urine Urobilinogen Ur Leukocyte Esterase Urine RBC Urine WBC Ur Squamous Epith Cells Urine Bacteria Urine Mucus Assessment/Plan All Active Problems (Last Reviewed 03/22/18 @ 16:15 by Dk Shannon MD) Symptomatic cholelithiasis (Acute) Leukocytosis (Acute) Cocaine abuse (Resolved) Reaction, drug, adverse (Resolved) RUQ pain, cholelithiasis, Hepatitis C, untreated I plan to admit for pain control. repeat lab studies in am. I then plan to perform a laparoscopic cholecystectomy with intraoperative cholangiogram. The patient understands the risks, benefits, alternatives and possible complications and consents to the procedure. he was started on ciprofloxacin. He was given a nicotine patch. We will watch his liver enzymes carefully and have some concerns over perioperative risks although it does not seem to have signs of cirrhosis.
[2019-02-14] MEDS: Lactated Ringers 1,000 ML 100 ML IV ×3 (01:40→17:58)
[2019-02-14] MEDS: Morphine 4 MG/ML Syringe IV ×4 (01:40→12:31)
[2019-02-14] MEDS: 0.9% NaCl Peripheral Flush Adult/Peds IV ×3 (02:06→12:31)
[2019-02-14] MEDS: Ciprofloxacin 400 MG/200 ML BAG 200 MG IV ×3 (02:07→23:19)
[2019-02-14 05:35] LABS: Absolute Lymphocyte Count 3.52 X10^3/uL (0.83-4.51); Absolute Neutrophil Count 10.6 X10^3/uL (2.0-7.7); Basophil# 0.02 X10^3/uL; Basophil% 0.1 % (0-1); Eosinophil# 0.08 X10^3/uL; Eosinophils% 0.5 % (0-5); Hematocrit 43.5 % (40-54); Hemoglobin 14.1 g/dL (13.0-16.5); Lymphocyte # 3.52 X10^3/ul (4.0); Lymphocyte % 22.8 % (19-41); Mean Corp Hgb Conc 32.4 g/dL (32-36); Mean Corpuscular Hgb 31.7 pg (27.0-32.0); Mean Corpuscular Volume 97.8 fL (80-94); Mean Platelet Vol. 8.6 fl (6.2-12.0); Monocyte# 1.04 X10^3/uL; Monocyte% 6.7 % (0-10); NRBC Flagged by Analyzer 0 % (0-5); Neutrophil # 10.61 X10^3/uL (2.7-7.7); Neutrophil % 68.8 % (47-70); Platelet Count 231 K/mm3 (150-450); RBC Distribution Width CV 14.3 % (11.6-14.6); RBC Distribution Width SD 51.5 fl (35.1-43.9); Red Blood Count 4.45 M/mm3 (4.6-6.2); White Blood Count 15.4 K/mm3 (4.4-11.0)
[2019-02-14 06:05] LABS: AST(SGOT) 23 U/L (15-37); Alanine Aminotransfer ALT/SGPT 87 U/L (16-61); Albumin, Serum 2.4 g/dL (3.2-5.0); Alkaline Phosphatase 56 U/L (45-117); Anion Gap 4 (5-15); BUN 16 mg/dL (7-18); BUN/Creat Ratio 20.6 RATIO (10-20); Calcium,Total 8.2 mg/dL (8.5-10.1); Chloride 114 mmol/L (98-107); Creatinine, Serum 0.78 mg/dL (0.70-1.30); EST Glomerular Filtration Rate 112 mL/min (>60); Est Glom Filt Rate - Afr Amer 136 mL/min (>60); Estimated Creatinine Clearance 101.11 ml/min; Globulin 2.3 g/dL (2.2-4.2); Glucose 86 mg/dL (74-106); Potassium 3.9 mmol/L (3.5-5.1); Protein, Total 4.7 g/dL (6.4-8.2); Sodium Level 146 mmol/L (136-145)
[2019-02-14 06:20] LABS: AST(SGOT) 22 U/L (15-37); Alanine Aminotransfer ALT/SGPT 85 U/L (16-61); Albumin, Serum 2.4 g/dL (3.2-5.0); Alkaline Phosphatase 56 U/L (45-117); Bilirubin, Direct 0.17 mg/dL (0.00-0.30); Globulin 2.3 g/dL (2.2-4.2); Protein, Total 4.7 g/dL (6.4-8.2)
[2019-02-14] MEDS: Levothyroxine 112 MCG Tablet PO (06:24)
[2019-02-14] MEDS: Gabapentin 300 MG Capsule 900 MG PO (08:36)
[2019-02-14] MEDS: Ensure Clear 120 ML Liquid PO (08:36)
[2019-02-14] MEDS: predniSONE 20 MG Tablet 60 MG PO (08:37)
[2019-02-14] MEDS: LITHIUM CARBONATE 300 MG TABLET.ER PO (10:00)
[2019-02-14] MEDS: oxyCODONE 5 MG Tablet PO ×2 (10:25→23:13)
--- NOTE | 2019-02-14 12:15 | CASEMGMT ---
RN CM MUSKRAT TRAPPER CM to room to meet with patient for initial transition planning/care coordination assessment. RN LIZETTE introduced self and role at [facility]. Pt voices understanding and consents to assessment at this time. Pt resting in bed in no distress at this time. @ bedside. Pt is A/O at this time and answers all questions appropriately. Care providers, pharmacy, and demographics verified/updated at this time. PCP: [facility] Specialists: Sigrid-oncology, Elizabeth-needle molder @ [facility], Marc--PA @ [facility] for liver, Jeevan--dermatology @ [facility], Maribel- Surgeon @ [facility] for upcoming knee replacement. Preferred Pharmacy: [facility] Insurance: [employer] Prescription Benefit: Yes Living Will/HPOA: Has HCPOA on file @ [facility] and his mother, Onelia Gardner was listed as POA. Pt states she is and he would like to complete new POA paperwork and is also interested in LW. Consult order placed and Sho CASAS, notified. LNOK: Living Arrangements: Lives with his in 2 story home which is handicap accessible and can do FFSU. Pt states he is independent w/ADL's. supportive and support is limited d/t she is on crutches currently. Transportation: Pt states drives self and states no transportation concerns at this time. can drive him home @ D/C DME: States only DME is a knee brace. Pt states no need for further DME at this time. HHC/SNF: Hx of [facility] after hip surgery and had HHC in the past but states, it was many years ago and I don't remember the name. Pt wishes to return home and states has no concerns with going home at time of discharge. CM to follow for any discharge planning/needs. Pt voices no further concerns/needs at this time. Advised pt and to ask for CM if any further questions/concerns/needs arise. They voice understanding. PLAN: Home w/spousal support and discharge plans in place. Amalia FREDERICK RN, CM
[2019-02-14] MEDS: Albuterol 2.5 MG/3 ML VIAL.NEB. INHALATION (13:46)
--- NOTE | 2019-02-14 14:38 | NURSING ---
REPORT CALLED TO Mily PT TO Zohreh.Leslye VIA BED.
--- NOTE | 2019-02-14 14:56 | CASEMGMT ---
Social Work Note SW received referral that pt would like to redo HCPOA. Pt is currently off floor for surgery. SW will follow up with pt tomorrow. Sho Angelo SPIKE DRIVER, COLOR MATCHER
--- NOTE | 2019-02-14 15:30 | GALL_PTH ---
PATIENT: VITA MAYORGA LOC: MS3 U#:[id number] AGE/SX: 53/M ROOM: MS316 RE02/14/[address]: Dr. Erick Scanlon MD : [id number] BED: 1 DIS: 02/16/2019 SPEC #: [id number] RECD: 02/15/19 08:47 STATUS: LIVAN REMundo #: [id number] JAMES: 02/14/19 15:[address]: Erick Scanlon DEPT: SURGICAL PATHOLOGY RECD BY: Abdoul Eaton ENTERED: 02/15/19 11:08 SP TYPE: HAZEL BORRERO DR: Dr. Hue Ahuja MD Tissues: Gallbladder, NOS Procedures: Surgery Specimen Level III HEADER OPERATION: Laparoscopic cholecystectomy with IOC PRE-OP DIAGNOSIS: Cholelithiasis TISSUE SUBMITTED: Gallbladder MICROSCOPIC DIAGNOSIS Gallbladder, cholecystectomy: Cholesterolosis, chronic cholecystitis and cholelithiasis. AM:jani 9/13/19 MICROSCOPIC DESCRIPTION Slides are reviewed. GROSS DESCRIPTION Received is one container labeled with the patient's name and designated gallbladder. The specimen consists of a gallbladder measuring 8.5 cm in length and 3 cm in diameter. The external surface is pink-valiente, smooth and glistening for the most part. Focally it is granular, hemorrhagic and contains cautery artifact. The gallbladder contains green-yellow mucoid to hemorrhagic bile and multiple yellow-green, mulberry stones measuring in aggregate 1 x 1 x 0.2 cm and <0.1 to 0.3 in greatest dimension. The mucosa is bile-stained and without any mass lesions. The gallbladder wall measures up to 0.2 cm in thickness. Inker And Opaquer sections from the gallbladder and the cystic duct are submitted in one cassette. / SJ:rg 02/15/19 TC:3 [facility]: [id number]
--- NOTE | 2019-02-14 20:35 | RAD_ITS ---
STUDY: CHOLANGIOGRAM REASON FOR EXAM: Male, 53 years old. Flank pain Cholecystectomy. FLUOROSCOPY TIME (if supplied): (0:16) minutes/seconds TECHNIQUE: Intraoperative fluoroscopy. 3 intraoperative views. COMPARISON: None. FINDINGS: There is opacification of cystic duct and common bile duct. No filling defects are seen the common bile duct to suggest retained stone. Contrast flows easily into the duodenum. RAD/Cholangiogram/ O R,Initial IMPRESSION: There is no evidence of retained stones in the common bile duct. Electronically Signed: Clemencia Gann, at 8:25 EDT Tel , Service support ,
[2019-02-14] MEDS: Bupivacaine Mpf 0.5% 30 ML VIAL (21:25)
--- NOTE | 2019-02-14 21:30 | OP.PCM_ITS ---
Report of Operation Date of Procedure: 02/14/19 Pre-Operative Diagnosis: biliary colic RUQ pain Post-Operative Diagnosis: biliary colic RUQ pain, normal IOC Surgery/Procedure Performed:: laparoscopic cholecystectomy with intraoperative cholangiogram reprographics technician: Martine Mohamud Type of Anesthesia:: General Anesthesiologist: Richy Maldonado Specimen's removed: gallbladder Estimated Blood Loss (mL): 10 Fluids Replaced: 1000 Description of Procedure: The patient was brought to the operating suite. Sign in was performed verifying patient, site, position, SCIP antibiotic prophylaxis- CIprofloxin 400mg and DVT prophylaxis with SCDs. Following induction of general anesthetic. The patient?s abdomen was prepped and draped in the usual fashion. Timeout was performed verifying patient, site, position. Local anesthetic was injected below the umbilicus. Incision made and dissection carried down to the umbilical root fascia. 2 stay sutures were placed. Incision made in the fascia, the peritoneum entered under direct visualization. A 10 mm Khanna trocar was inserted and secured with the stay sutures. Pneumoperitoneum to 15 mmHg was insufflated. Visual inspection revealed adhesions to the neck and body of the gallbladder without gross inflammation. 3 right upper quadrant 5 ports were placed in the standard position. The gallbladder was grasped retracted upward and outward. Dissection was carried out in Calot?s triangle. When a critical view of the neck of the gallbladder funneling of the cystic duct with no signs of aberrant ductal structures were seen, a clip was placed on the neck of the gallbladder cystic duct junction. A partial ductotomy was made. A Cholangiocath was inserted into the duct and secured with a clip. Intraoperative cholangiogram was performed demonstrating filling of the cystic duct filling the common bile duct and emptying into the duodenum without signs of obstruction area and the clip and catheter were removed. 2 clips placed on the cystic duct and the cystic duct divided. Dissection was continued until the cystic artery was clearly dissected and identified. The artery was then doubly clipped proximally singly clipped distally and divided. The gallbladder was then dissected free from the gallbladder fossa using electrocautery. The gallbladder was placed in an Endobag and removed through the umbilical port site. An 0 PDS [id number] suture was placed around the umbilical port site defect. Pneumoperitoneum was reestablished. The gallbladder fossa was checked for hemostasis. With good hemostasis, the area was irrigated and aspirated to clear. 5mm ports were removed under direct visualization with no signs of bleeding. Pneumoperitoneum was released. The Khanna trocar was removed. The umbilical fascial suture was secured area did skin was closed with interrupted 4-0 Monocryl subcuticular sutures. Steri-Strips and bandages were applied. The patient was brought to recovery room in stable condition. - Admit VTE Documentation VTE Present on Admission: No VTE Mechan Device Prophylaxis: SCD's
[2019-02-15] MEDS: Sugammadex Sodium 200 MG/2 ML VIAL IV (00:04)
[2019-02-15 00:50] VITALS: BP 105/71; PULSE 68; RESP 18; TEMP 37; O2SAT 98
[2019-02-15] MEDS: Morphine 4 MG/ML Syringe IV ×4 (01:12→11:24)
[2019-02-15 02:57] VITALS: BP 108/69; PULSE 70; RESP 18; TEMP 37.1; O2SAT 98
[2019-02-15] MEDS: oxyCODONE 5 MG Tablet PO ×3 (03:11→20:37)
[2019-02-15] MEDS: Lactated Ringers 1,000 ML 100 ML IV (05:16)
[2019-02-15] MEDS: Levothyroxine 112 MCG Tablet PO (05:18)
[2019-02-15 06:57] LABS: Absolute Lymphocyte Count 4.03 X10^3/uL (0.83-4.51); Absolute Neutrophil Count 15.2 X10^3/uL (2.0-7.7); Basophil# 0.02 X10^3/uL; Basophil% 0.1 % (0-1); Eosinophil# 0.06 X10^3/uL; Eosinophils% 0.3 % (0-5); Hematocrit 42.1 % (40-54); Hemoglobin 13.8 g/dL (13.0-16.5); Lymphocyte # 4.03 X10^3/ul (4.0); Lymphocyte % 19.4 % (19-41); Mean Corp Hgb Conc 32.8 g/dL (32-36); Mean Corpuscular Volume 97.7 fL (80-94); Mean Platelet Vol. 8.4 fl (6.2-12.0); Monocyte# 1.38 X10^3/uL; Monocyte% 6.6 % (0-10); NRBC Flagged by Analyzer 0 % (0-5); Neutrophil # 15.15 X10^3/uL (2.7-7.7); Neutrophil % 72.9 % (47-70); Platelet Count 218 K/mm3 (150-450); RBC Distribution Width CV 13.8 % (11.6-14.6); RBC Distribution Width SD 50.4 fl (35.1-43.9); Red Blood Count 4.31 M/mm3 (4.6-6.2); White Blood Count 20.8 K/mm3 (4.4-11.0)
[2019-02-15 07:13] LABS: AST(SGOT) 34 U/L (15-37); Alanine Aminotransfer ALT/SGPT 85 U/L (16-61); Albumin, Serum 2.2 g/dL (3.2-5.0); Alkaline Phosphatase 70 U/L (45-117); Anion Gap 6 (5-15); BUN 14 mg/dL (7-18); BUN/Creat Ratio 16.6 RATIO (10-20); Calcium,Total 8.2 mg/dL (8.5-10.1); Chloride 105 mmol/L (98-107); Creatinine, Serum 0.84 mg/dL (0.70-1.30); EST Glomerular Filtration Rate 102 mL/min (>60); Est Glom Filt Rate - Afr Amer 123 mL/min (>60); Estimated Creatinine Clearance 93.89 ml/min; Globulin 2.3 g/dL (2.2-4.2); Glucose 81 mg/dL (74-106); Potassium 3.7 mmol/L (3.5-5.1); Protein, Total 4.5 g/dL (6.4-8.2); Sodium Level 141 mmol/L (136-145)
[2019-02-15 08:45] VITALS: PULSE 76; RESP 18
[2019-02-15] MEDS: predniSONE 20 MG Tablet 60 MG PO (08:58)
[2019-02-15] MEDS: Gabapentin 300 MG Capsule 900 MG PO ×3 (08:58→17:55)
[2019-02-15 09:00] VITALS: BP 106/69; PULSE 74; RESP 18; TEMP 37.2; O2SAT 98
[2019-02-15] MEDS: 0.9% NaCl Peripheral Flush Adult/Peds IV ×3 (09:25→22:05)
[2019-02-15] MEDS: Albuterol 2.5 MG/3 ML VIAL.NEB. INHALATION (09:34)
[2019-02-15] MEDS: LITHIUM CARBONATE 300 MG TABLET.ER PO (09:35)
[2019-02-15] MEDS: Ensure Clear 120 ML Liquid PO ×2 (09:40→20:38)
--- NOTE | 2019-02-15 11:01 | CASEMGMT ---
Social Work Note SW attempted to meet with pt to complete advanced directives. Pt states he is too tired to complete documents at this time, denied wanting to complete documents. SW did provided pt with documents. Sho Angelo TIMBER FELLER, ENERGY AUDITOR
[2019-02-15] MEDS: Ciprofloxacin 400 MG/200 ML BAG 200 MG IV ×2 (11:23→22:05)
--- NOTE | 2019-02-15 11:31 | NURSING ---
clindamycin cream is to be given after a shower per pt. refused at this time but states he will use later.
[2019-02-15 15:40] VITALS: BP 125/74; PULSE 70; RESP 18; TEMP 36.8; O2SAT 98
[2019-02-15] MEDS: BUPRENORPHINE 1 EACH PATCH.TDWK 10 EACH TD (16:37)
--- NOTE | 2019-02-15 18:11 | PN.SURG_ITS ---
Patient Problems: Active and Suspected Problems (Last Reviewed 03/22/18 @ 16:15 by Dk Shannon MD) Symptomatic cholelithiasis (Acute) Leukocytosis (Acute) Subjective: no flatus, incisional pain, - Physical Exam General: Alert, Oriented x3, Cooperative Lungs: Clear to auscultation, Normal air movement Cardiovascular: Regular rate, Regular Rhythm Abdomen: Soft, Hypoactive Bowel Sounds, Tender - at incisions Vital Signs Temp Pulse Resp BP Pulse Ox 98.2 F 70 18 125/74 H 98 02/15/19 15:40 02/15/19 15:40 02/15/19 15:40 02/15/19 15:40 02/15/19 15:40 Oxygen Flow Rate (L/min) 1 Oxygen Delivery Method Room Air Weight: 85.1 kg Body Mass Index (BMI) 30.2 Intake and Output for Last 24 Hours 02/13/19 02/14/19 02/15/19 23:59 23:59 23:59 Intake Total 1000 / 1000 3400 / 3600 3560 / 3560 Output Total 400 / 400 850 / 850 Balance 1000 / 1000 3000 / 3200 2710 / 2710 Laboratory Tests Past 24 Hrs 02/15/19 02/15/19 06:50 06:50 WBC 20.8 H RBC 4.31 L Hgb 13.8 Hct 42.1 MCV 97.7 H MCH 32.0 MCHC 32.8 RDW Std Deviation 50.4 H RDW Coeff of Re 13.8 Plt Count 218 MPV 8.4 Immature Gran % (Auto) 0.700 Neut % (Auto) 72.9 H Lymph % (Auto) 19.4 [place] % (Auto) 6.6 Eos % (Auto) 0.3 Baso % (Auto) 0.1 Absolute Neuts (auto) 15.2 H Absolute Lymphs (auto) 4.03 Nucleated RBC % 0 Sodium 141 Potassium 3.7 Chloride 105 Carbon Dioxide 30.0 Anion Gap 6 BUN 14 Creatinine 0.84 Estim Creat Clear Calc 93.89 Est GFR (MDRD) Af Amer 123 Est GFR (MDRD) Non-Af 102 BUN/Creatinine Ratio 16.6 Glucose 81 Calcium 8.2 L Total Bilirubin 1.20 H AST 34 ALT 85 H Alkaline Phosphatase 70 Total Protein 4.5 L Albumin 2.2 L Globulin 2.3 Albumin/Globulin Ratio 1.0 Medical Necessity - Tobacco Use Smoking Status: Current every day smoker Assessment/Plan All Active Problems (Last Reviewed 03/22/18 @ 16:15 by Dk Shannon MD) Symptomatic cholelithiasis (Acute) Leukocytosis (Acute) Cocaine abuse (Resolved) Reaction, drug, adverse (Resolved) RUQ pain, cholelithiasis, Hepatitis C, untreated POD # 1 s/p laparoscopic cholecystectomy with intraoperative cholangiogram - for severe right upper quadrant pain, clinically acute cholecystitis. T is not arthritis added sounds abdominal pain. He has a persistently elevated white blood cell count but this has been elevated for the past year. His bilirubin is up slightly today. He will be maintained on ciprofloxacin. He was given a nicotine patch. We will watch his liver enzymes carefully and have some concerns over perioperative risks although it does not seem to have signs of cirrhosis.
--- NOTE | 2019-02-15 18:13 | DCINST_ITS ---
Discharge Diet: Light diet - advance as tolerated Discharge Activity: May Not Drive - for 2-3 days or while taking narcotic pain medications., - - Do not drive, work heavy equipment or sign legal documents for 24 hours. May shower in (days): 1 - with the bandage in place. Additional Activity Instructions:: Pain medication may cause nausea. You should typically eat light foods as you take your pain medications. Pain medication may also cause constipation. If this is a problem for you, please discuss with your doctor. Call your doctor if your incision/area has: Continuous Slow Oozing, Sudden Increased Bleeding, Increased Pain/ Swelling, Increased Redness, Foul Smelling Discharge Call your doctor if you observe: Fever of 101 or Higher Suture Line Care: Avoid Pulling/Pushing, Avoid Pinching/Bending Additional Dressing/Incision Instructions:: Leave operative bandaids on for 2 days. When you remove dressing, leave Steri-Strips on until your follow-up appointment, or until the Steri-Strips fall off on their own. Allergies/Adverse Reactions: Allergies methotrexate Adverse Reaction (Verified 02/14/19 01:33) Hives,Rash,Lesions naproxen [From Naprosyn] Adverse Reaction (Verified 02/13/19 19:23) Upset Stomach BEE VENOM Allergy (Uncoded 02/13/19 19:23) Anaphylaxis ROOT BEER Allergy (Uncoded 02/13/19 19:23) Hives Medications to take at Discharge Levothyroxine [Synthroid] 112 mcg PO DAILY 07/10/16 [place] Carbonate [[place] Carbonate ER] 300 mg PO DAILY 07/10/16 Albuterol Sulfate [Proventil Hfa] 6.7 gm IH Q4H PRN 10/21/16 Gabapentin [Neurontin] 900 mg PO TIDCM 10/21/16 Nitroglycerin 0.4 mg SL PRN PRN 07/21/17 Prazosin HCl 2 mg PO PRN PRN 07/21/17 clindamycin 1 % lotion 1 unit TOPICAL DAILY 30 Days #120 ml 03/21/18 cyanocobalamin (vit B-12) 1,000 mcg/mL injection solution 1,000 syr IM QMONTH 30 Days #1 ml 03/21/18 ginseng 250 mg capsule 250 mg PO DAILY 03/22/18 predniSONE tablet 60 mg PO DAILY #15 tab 10/06/18 Epi Pen (for allergic rxn) 0.3 mg IM X1 #3 syringe 02/07/19 Buprenorphine [Butrans 5 Mcg/Hr] 10 mcg TD QWEEK 02/14/19 Chlorhexidine Gluconate [Hibiclens] 15 ml TP DAILY 02/14/19 Fluticasone/Vilanterol [Breo Ellipta 200-25 Mcg INH] 1 each INHALATION DAILY 02/14/19 Ginkgo Biloba 500 mg PO DAILY 02/14/19 Montelukast [Singulair] 10 mg PO QHS 02/14/19 Primary Care Physician: Hue Ahuja MD [Primary Care Provider] - Test Results: Test results from this visit will be discussed in further detail at your follow- up appointment, if applicable. Please Follow Up With: Erick Scanlon MD - Please call [phone] to schedule an appointment. When: 7 days after your surgery
[2019-02-15 20:39] VITALS: BP 122/82; PULSE 89; RESP 16; TEMP 36.6; O2SAT 98
[2019-02-15] MEDS: 0.9% NaCl IVPB Med Flush (250 mL) 15 ML IV (22:05)
[2019-02-16] MEDS: oxyCODONE 5 MG Tablet PO ×2 (00:26→06:12)
[2019-02-16 02:20] VITALS: BP 124/77; PULSE 65; RESP 16; TEMP 36.3; O2SAT 99
[2019-02-16] MEDS: Levothyroxine 112 MCG Tablet PO (06:12)
[2019-02-16 06:24] LABS: Absolute Lymphocyte Count 4.01 X10^3/uL (0.83-4.51); Basophil# 0.02 X10^3/uL; Basophil% 0.1 % (0-1); Eosinophil# 0.06 X10^3/uL; Eosinophils% 0.4 % (0-5); Hematocrit 41.5 % (40-54); Hemoglobin 13.8 g/dL (13.0-16.5); Lymphocyte # 4.01 X10^3/ul (4.0); Lymphocyte % 26.3 % (19-41); Mean Corp Hgb Conc 33.3 g/dL (32-36); Mean Corpuscular Hgb 32.2 pg (27.0-32.0); Mean Corpuscular Volume 96.7 fL (80-94); Mean Platelet Vol. 8.9 fl (6.2-12.0); Monocyte# 1.02 X10^3/uL; Monocyte% 6.7 % (0-10); NRBC Flagged by Analyzer 0 % (0-5); Neutrophil # 9.98 X10^3/uL (2.7-7.7); Neutrophil % 65.6 % (47-70); Platelet Count 222 K/mm3 (150-450); RBC Distribution Width CV 13.9 % (11.6-14.6); RBC Distribution Width SD 49.3 fl (35.1-43.9); Red Blood Count 4.29 M/mm3 (4.6-6.2); White Blood Count 15.2 K/mm3 (4.4-11.0)
[2019-02-16 06:51] LABS: ALB/GLOB Ratio 0.9 RATIO (0.9-2.4); AST(SGOT) 21 U/L (15-37); Alanine Aminotransfer ALT/SGPT 72 U/L (16-61); Albumin, Serum 2.4 g/dL (3.2-5.0); Alkaline Phosphatase 65 U/L (45-117); Anion Gap 5 (5-15); BUN 13 mg/dL (7-18); BUN/Creat Ratio 14.7 RATIO (10-20); Calcium,Total 8.6 mg/dL (8.5-10.1); Chloride 109 mmol/L (98-107); Creatinine, Serum 0.89 mg/dL (0.70-1.30); EST Glomerular Filtration Rate 96 mL/min (>60); Est Glom Filt Rate - Afr Amer 116 mL/min (>60); Estimated Creatinine Clearance 88.61 ml/min; Globulin 2.6 g/dL (2.2-4.2); Glucose 109 mg/dL (74-106); Potassium 3.9 mmol/L (3.5-5.1); Sodium Level 144 mmol/L (136-145)
[2019-02-16] MEDS: predniSONE 20 MG Tablet 60 MG PO (08:05)
[2019-02-16] MEDS: Gabapentin 300 MG Capsule 900 MG PO (08:05)
[2019-02-16 08:39] VITALS: PULSE 66; RESP 18
[2019-02-16 08:47] VITALS: BP 126/91; PULSE 66; RESP 16; TEMP 36.8; O2SAT 98
--- NOTE | 2019-02-16 09:20 | CASEMGMT ---
Social Work Note Pt discharged before this worker could meet again to discuss advanced directives. Sho Angelo WINDOW DRESSER, CINEMA OPERATOR
--- NOTE | 2019-02-16 19:53 | DS.PCM_ITS ---
Discharge Date and Diagnosis Date of Admission: 02/14/19 Date of Discharge: 02/16/19 - Primary Discharge Diagnosis acute cholecystitis - Secondary Discharge Diagnosis Chronic Problems (Last Reviewed 03/22/18 @ 16:15 by Dk Shannon MD) Avascular necrosis of left femoral head (Chronic) Rheumatoid arthritis (Chronic) Nicotine dependence (Chronic) Old myocardial infarct (Chronic) Hospital Course and Treatment Operations: cholecystecomy Summary of Care Provided: The patient is a 53 year old M who presents with crescendoing symptoms now with a history of significant right upper quadrant pain. He also has untreated hepatitis C area he was brought tapping suite and underwent semiurgent laparoscopic cholecystectomy with intraoperative cholangiogram. Patient has had a persistently elevated white blood cell count andwas found to have an elevated white blood cell count and mildly elevated bilirubin on postoperative day 1. on postoperative day 2 the patient's white blood cell count decreased to 15 which is within the range of his recent white blood cell count the past yearand his bilirubin and transaminases were normal. The patient's abdominal pain had improved and he was able to be discharged home. - Physical Exam General: Alert, Oriented x3, Cooperative Lungs: Clear to auscultation, Normal air movement Cardiovascular: Regular rate, No murmurs Abdomen: Bowel Sounds Present, Non Tender, Tender - at incision sites and improved Vital Signs Temp Pulse Resp BP Pulse Ox 98.3 F 66 16 126/91 H 98 02/16/19 08:47 02/16/19 08:47 02/16/19 08:47 02/16/19 08:47 02/16/19 08:47 Oxygen Flow Rate (L/min) 1 Oxygen Delivery Method Room Air Weight: 85.1 kg Body Mass Index (BMI) 30.2 Intake and Output for Last 24 Hours 02/14/19 02/15/19 02/16/19 23:59 23:59 23:59 Intake Total 3400 / 3600 5360 / 6160 1246.75 / 1246.75 Output Total 400 / 400 850 / 2350 2100 / 2100 Balance 3000 / 3200 4510 / 3810 -853.25 / -853.25 Microbiology Past 72 Hours 02/13/19 22:55 Blood Culture - Preliminary Blood Culture (Wb) - Right Hand No growth in 48 hours. Laboratory Tests Past 24 Hrs 02/16/19 02/16/19 06:06 06:06 WBC 15.2 H RBC 4.29 L Hgb 13.8 Hct 41.5 MCV 96.7 H MCH 32.2 H MCHC 33.3 RDW Std Deviation 49.3 H RDW Coeff of Re 13.9 Plt Count 222 MPV 8.9 Immature Gran % (Auto) 0.900 Neut % (Auto) 65.6 Lymph % (Auto) 26.3 [place] % (Auto) 6.7 Eos % (Auto) 0.4 Baso % (Auto) 0.1 Absolute Neuts (auto) 10.0 H Absolute Lymphs (auto) 4.01 Nucleated RBC % 0 Sodium 144 Potassium 3.9 Chloride 109 H Carbon Dioxide 30.0 Anion Gap 5 BUN 13 Creatinine 0.89 Estim Creat Clear Calc 88.61 Est GFR (MDRD) Af Amer 116 Est GFR (MDRD) Non-Af 96 BUN/Creatinine Ratio 14.7 Glucose 109 H Calcium 8.6 Total Bilirubin 0.70 AST 21 ALT 72 H Alkaline Phosphatase 65 Total Protein 5.0 L Albumin 2.4 L Globulin 2.6 Albumin/Globulin Ratio 0.9 Discharge Diet: Light diet - advance as tolerated Discharge Activity: May Not Drive - for 2-3 days or while taking narcotic pain medications., - - Do not drive, work heavy equipment or sign legal documents for 24 hours. May shower in (days): 1 - with the bandage in place. Additional Activity Instructions:: Pain medication may cause nausea. You should typically eat light foods as you take your pain medications. Pain medication m ay also cause constipation. If this is a problem for you, please discuss with your doctor. Call your doctor if your incision/area has: Continuous Slow Oozing, Sudden Increased Bleeding, Increased Pain/ Swelling, Increased Redness, Foul Smelling Discharge Call your doctor if you observe: Fever of 101 or Higher Suture Line Care: Avoid Pulling/Pushing, Avoid Pinching/Bending Additional Dressing/Incision Instructions:: Leave operative bandaids on for 2 days. When you remove dressing, leave Steri-Strips on until your follow-up appointment, or until the Steri-Strips fall off on their own. Home Medications: Medications to take at Discharge Levothyroxine [Synthroid] 112 mcg PO DAILY 07/10/16 [place] Carbonate [[place] Carbonate ER] 300 mg PO DAILY 07/10/16 Albuterol Sulfate [Proventil Hfa] 6.7 gm IH Q4H PRN 10/21/16 Gabapentin [Neurontin] 900 mg PO TIDCM 10/21/16 Nitroglycerin 0.4 mg SL PRN PRN 07/21/17 Prazosin HCl 2 mg PO PRN PRN 07/21/17 clindamycin 1 % lotion 1 unit TOPICAL DAILY 30 Days #120 ml 03/21/18 cyanocobalamin (vit B-12) 1,000 mcg/mL injection solution 1,000 syr IM QMONTH 30 Days #1 ml 03/21/18 predniSONE tablet 60 mg PO DAILY #15 tab 10/06/18 Epi Pen (for allergic rxn) 0.3 mg IM X1 #3 syringe 02/07/19 Buprenorphine [Butrans 5 Mcg/Hr] 10 mcg TD QWEEK 02/14/19 Fluticasone/Vilanterol [Breo Ellipta 200-25 Mcg INH] 1 each INHALATION DAILY 02/14/19 Ginkgo Biloba 500 mg PO DAILY 02/14/19 Montelukast [Singulair] 10 mg PO QHS 02/14/19 Ensure Clear 120 ml PO 4X/DAY liquid 02/16/19 Oxycodone HCl/Acetaminophen [Percocet 5/325] 1 tab PO Q6H PRN PRN 3 Days #10 tab 02/16/19 Following Prescrptions Were Given to Patient: Oxycodone HCl/Acetaminophen [Percocet 5/325] 1 tab PO Q6H PRN PRN 3 Days #10 tab PRN Reason: Pain Prescription Printed Primary Care Physician: Hue Ahuja MD [Primary Care Provider] - Please Follow Up With: Erick Scanlon MD When: 7 days after your surgery Medical Necessity - Tobacco Use Smoking Status: Current every day smoker Meaningful Use Info Meaningful Use Diagnoses (Choose all that apply): None applicable
--- NOTE | 2019-02-19 15:24 | CASEMGMT ---
MELO CM Discharge Follow-up Phone Call: EDISON: Dwight Strata: 4 Call Date: 02/19/19 Discharge Date: 02/15/19 Time of Call: 2005 Duration: 12 minutes ? Admitting Diagnosis: acute cholecystitis Discharge follow-up call completed with pt. Pt expressed concern with enlarged bruising on his abdomen and increased pain over the weekend. States he was in the ED last evening for evaluation of the bruising with no acute issue or concern identified. States he continues in pain which he rates an 8. Pt states he has contacted Dr. Scanlon's office and has made them aware of both issues. States he has an appointment on and asked to have it moved up but was told there were none available. Pt aware that he can return to the ED if needed. Pt states he was at [facility] to complete paperwork with his at the time of our call but plans to go home and rest afterwords. 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 Pt states he knows that he has overdone it and this may be the reason for the increased bruising and/or pain. Pt reports + flatus and BM. Pt denied any other questions or complaints.
== END 2019-02-16 09:10 | disposition home or self-care (01) | DRG 263 ==
LOC: ED 20:34 → MS3 02-14 01:04
PROVIDERS: Anesthesiology; Admitting Provider Surgery; Emergency Provider Emergency Medicine; Family Provider Internal Medicine; PCP Internal Medicine; Visit Provider Surgery
PROC: 0FT44ZZ Resection of Gallbladder, Percutaneous Endoscopic Approach (ICD-10-PCS; CPT 47610; principal; 2019-02-14 15:10)
DX: K80.00 Calculus of gallbladder with acute cholecystitis without obstruction (principal); B18.2 Chronic viral hepatitis C; J44.9 Chronic obstructive pulmonary disease, unspecified; E03.9 Hypothyroidism, unspecified; M06.9 Rheumatoid arthritis, unspecified; F31.9 Bipolar disorder, unspecified; F41.0 Panic disorder [episodic paroxysmal anxiety]; F17.200 Nicotine dependence, unspecified, uncomplicated; I25.2 Old myocardial infarction; Z85.72 Personal history of non-Hodgkin lymphomas; Z79.899 Other long term (current) drug therapy; Z86.19 Personal history of other infectious and parasitic diseases; Z96.649 Presence of unspecified artificial hip joint; Z96.659 Presence of unspecified artificial knee joint
CPT/HCPCS: 36415; 74300; 76000; 76705; 80048; 80053; 80076; 81001; 83605; 83690; 84443; 84484; 85025; 87040; 88304; 93005; 94640; 97802; 99285; 99406; J7030; J7050; J7120; A4216; J0744; J2405

== ENCOUNTER 2019-02-18 23:11 | Emergency (ER) | payer MEDICAID, SELFPAY ==
[2019-02-14 14:28] VITALS: BMI 30.2
[2019-02-18 23:12] VITALS: BP 145/88; PULSE 95; RESP 15; TEMP 36.7; O2SAT 96; BMI 30.2
--- NOTE | 2019-02-18 23:23 | ED.VIS.GEN ---
History of Present Illness Chief Complaint: Other, Pain/Inj Informant: Patient Narrative: stated he was recently discharged 2 days ago status post lap cholecystectomy he is on narcotics been having some nausea. Underlying reason for coming in is that he noticed the increasing size of the bruise around his periumbilical port wound. He did not have any increasing pain. He has noticed no masses. He is felt some mild nausea today without vomiting. Said he wanted to make sure that the bruising was okay. Is not felt a hematoma. His upper abdominal wounds have not bruising like his periumbilical one. - Past Medical History (1) Leukocytosis Status: Acute (2) Symptomatic cholelithiasis Status: Acute (3) Avascular necrosis of left femoral head Status: Chronic (4) Nicotine dependence Status: Chronic (5) Old myocardial infarct Status: Chronic (6) Rheumatoid arthritis Status: Chronic Past Medical History - Allergies and Home Meds Allergies/Adverse Reactions: Allergies methotrexate Adverse Reaction (Verified 02/18/19 23:15) Hives,Rash,Lesions naproxen [From Naprosyn] Adverse Reaction (Verified 02/18/19 23:15) Upset Stomach BEE VENOM Allergy (Uncoded 02/13/19 19:23) Anaphylaxis ROOT BEER Allergy (Uncoded 02/13/19 19:23) Hives Primary Care Physician: Hue Ahuja MD [Primary Care Provider] - Prior records reviewed: Yes Past Medical History: - - See problem list Surgical History: appendectomy, arthroscopy, knee, cholecystectomy, total hip arthroplasty, - - Facial reconstructive surgery. Smoking Status: Current every day smoker Alcohol: None Drugs: None - Family History Maternal Family History: Reports: No pertinent history Paternal Family History: Reports: No pertinent history Review of Systems General: Denies: Chills, Fever, Sweats Eyes: Denies: Visual changes - bilaterally, Diplopia ENT: Denies: Rhinorrhea, Sore throat Cardiovascular: Denies: Chest pain, Palpitations Respiratory: Denies: Dyspnea, Cough, Dyspnea on exertion Gastrointestinal: Reports: Abdominal pain - Postoperative abdominal pain, Nausea. Denies: Vomiting, Diarrhea, Melena, Hematochezia Genitourinary: Denies: Dysuria, Hematuria, Frequency Musculoskeletal: Denies: Back pain, Extremity Pain Skin: Reports: - - Postoperative wound bruise. Denies: Rash, Wounds Neurological: Denies: Headache, Weakness, Numbness Physical Exam Vital Signs/Narrative: Vital Signs Temp Pulse Resp BP Pulse Ox 02/18/19 23:12 98.1 F 95 15 145/88 H 96 General: Well nourished, Well developed, No Acute Distress Head: Normocephalic, Atraumatic Eyes: Perrl, EOMI ENT: Moist mucous membranes, No rhinorrhea Neck: Supple, Nontender Cardiovascular: Regular rate, Regular rhythm, No murmurs Respiratory: No distress, CTA bilaterally, Chest nontender Abdomen: Soft, Nontender, Nondistended, Normal bowel sounds, - - Surgical wounds are clean dry and intact. The periumbilical wound has a small bruise around it without hematoma. The bruise measures 3 x 3 cm. Negative for: Tender, Guarding Back: Nontender, Normal Inspection Extremities: Nontender, No edema Skin: - - See above. Negative for: Normal color, No rash Neurological: Alert, Oriented x3, Cranial nerves II-XII grossly intact, Normal Strength, Normal Sensation Psychological: Normal affect, Normal Mood Diagnostic/Tx/Re-eval - Medical Decision Making Patient reassured. He was given a dose of Zofran for nausea. Is likely from his narcotic pain medicine and recent surgery. I do not feel he has an acute intra-abdominal pathology. He has a small bruise to his periumbilical port site wound. This is not concerning. There is no hematoma. It is not tender. He will follow-up as an outpatient given Zofran for home. ED Disposition - Plan for ED Patient: Diagnosis: Encounter for postoperative wound check, Nausea Instructions: After Gallbladder Surgery Prescriptions: Ondansetron [Zofran Odt] 4 mg PO Q8H PRN PRN #10 tab PRN Reason: Nausea Prescription Printed Referrals: Erick Scanlon MD [STAFF PHYSICIAN] -
[2019-02-18] MEDS: Ondansetron ODT 4 MG Tablet 8 MG PO (23:37)
[2019-02-18 23:45] VITALS: RESP 16
== END 2019-02-18 23:45 | disposition home or self-care (01) ==
LOC: ED 23:27
PROVIDERS: Emergency Provider Emergency Medicine; Family Provider Internal Medicine; PCP Internal Medicine
DX: G89.18 Other acute postprocedural pain (principal); R10.9 Unspecified abdominal pain; R11.0 Nausea; M06.9 Rheumatoid arthritis, unspecified; F17.200 Nicotine dependence, unspecified, uncomplicated; Z79.899 Other long term (current) drug therapy; I25.2 Old myocardial infarction; Z90.49 Acquired absence of other specified parts of digestive tract
CPT/HCPCS: 99283

== ENCOUNTER 2019-02-21 22:52 | Inpatient (IN) | payer MEDICAID, SELFPAY ==
[2019-02-21 22:53] VITALS: BP 148/102; PULSE 68; RESP 17; TEMP 36.9; O2SAT 98; BMI 30.3
[2019-02-21 23:09] LABS: Absolute Lymphocyte Count 9.62 X10^3/uL (0.83-4.51); Absolute Neutrophil Count 24.5 X10^3/uL (2.0-7.7); Basophil# 0.07 X10^3/uL; Basophil% 0.2 % (0-1); Eosinophil# 0.02 X10^3/uL; Eosinophils% 0.1 % (0-5); Hematocrit 45.7 % (40-54); Hemoglobin 15.2 g/dL (13.0-16.5); Lymphocyte # 9.62 X10^3/ul (4.0); Lymphocyte % 26.1 % (19-41); Mean Corp Hgb Conc 33.3 g/dL (32-36); Mean Corpuscular Hgb 32.6 pg (27.0-32.0); Mean Corpuscular Volume 98.1 fL (80-94); Mean Platelet Vol. 8.6 fl (6.2-12.0); Monocyte# 2.26 X10^3/uL; Monocyte% 6.1 % (0-10); NRBC Flagged by Analyzer 0 % (0-5); Neutrophil # 24.51 X10^3/uL (2.7-7.7); Neutrophil % 66.3 % (47-70); POSITIVE COUNT YES; POSITIVE DIFFERENTIAL YES; POSITIVE MORPHOLOGY YES; Platelet Count 336 K/mm3 (150-450); RBC Distribution Width CV 13.8 % (11.6-14.6); RBC Distribution Width SD 50.2 fl (35.1-43.9); Red Blood Count 4.66 M/mm3 (4.6-6.2)
[2019-02-21 23:11] LABS: Differential Indicated SCAN CRITERIA MET
[2019-02-21 23:12] LABS: White Blood Count 36.9 K/mm3 (4.4-11.0)
--- NOTE | 2019-02-21 23:17 | ED.RN ---
TOOK CRITICAL LAB FROM [facility] IN [place], MD GAONA.
[2019-02-21] MEDS: HYDROmorphone 1 MG/ML Syringe IV (23:18)
[2019-02-21] MEDS: Ondansetron 4 MG/2 ML Vial IV (23:18)
--- NOTE | 2019-02-21 23:23 | ED.VISSUMM ---
- ER Visit Summary Date of Service: 02/21/19 Chief Complaint: Abdominal pain History of Present Illness: The patient is a 53 M presenting with abdominal pain. Patient states this started on Tuesday. He has had intermittent pain. States it worsened this evening. He has had nausea with no vomiting. He denies diarrhea. He states he had a normal bowel movement today. He has had subjective fever at home. He had cholecystectomy [address] Scanlon. He is scheduled for postop visit on Tuesday. He states he has a history of non-Hodgkin's lymphoma. He states he was recently seen by Dr. Matta. He states that he was told no further treatment is available. Physical Examination: Vitals are stable. Patient is afebrile. Alert no acute distress. HEENT exam is unremarkable. Neck is supple. Lungs are clear and equal bilaterally. Heart is regular rate and rhythm. Abdomen is soft epigastric tenderness, incisions clean dry and intact Extremities are unremarkable. Skin is warm and dry. No focal neurologic deficit. Remainder of exam is unremarkable. Emergency Department Course and Treatment: Patient was given Dilaudid, Zofran IV. CBC shows white count 36.9. Chemistries normal except for glucose 116. Liver enzymes show ALT 68. Lipase 53. Lactic acid 1.4. [place] level 0.40. CT abdomen pelvis shows findings consistent with recent cholecystectomy. Stranding and fluid in the gallbladder fossa and tracking along the common duct are nonspecific but could indicate the presence of cholangitis. Correlation with clinical findings is needed. Blood cultures were sent. He was given Zosyn IV. Discussed with Dr. Matta, Dr. Medina and the hospitalist. Disposition: Admission Impression: Abdominal pain, leukocytosis This note was generated with Listen Edition dictation software. It may contain incorrect words, spelling, and punctuation that were not noted in review of the chart prior to signing ED Disposition - Plan for ED Patient: Referrals: Hue Ahuja MD [Primary Care Provider] -
[2019-02-21 23:26] LABS: Anion Gap 4 (5-15); BUN 16 mg/dL (7-18); Calcium,Total 8.7 mg/dL (8.5-10.1); Chloride 107 mmol/L (98-107); Creatinine, Serum 1.07 mg/dL (0.70-1.30); EST Glomerular Filtration Rate 77 mL/min (>60); Est Glom Filt Rate - Afr Amer 93 mL/min (>60); Glucose 116 mg/dL (74-106); Lipase 53 U/L (73-393); Potassium 3.6 mmol/L (3.5-5.1); Sodium Level 140 mmol/L (136-145)
[2019-02-21 23:28] LABS: Differential Comment SCANNED
[2019-02-21 23:31] LABS: AST(SGOT) 18 U/L (15-37); Alanine Aminotransfer ALT/SGPT 68 U/L (16-61); Alkaline Phosphatase 77 U/L (45-117); Bilirubin, Direct 0.18 mg/dL (0.00-0.30); Globulin 2.9 g/dL (2.2-4.2); Protein, Total 5.9 g/dL (6.4-8.2)
[2019-02-22] VITALS (48 sets, daily range): BP systolic 75–146; BP diastolic 49–85; PULSE 72–156; RESP 18–34; TEMP 36.8–39.6; O2SAT 90–99; BMI 29.9
[2019-02-22] MEDS: HYDROmorphone 1 MG/ML Syringe IV (00:20)
--- NOTE | 2019-02-22 00:24 | RAD_ITS ---
HISTORY: Fever ADDITIONAL HISTORY: None provided. COMPARISON: 05/14/2018 TECHNIQUE: Frontal chest radiograph. Number of images including paperwork: 1 FINDINGS: LUNGS AND PLEURA: Low lung volumes. No consolidation, mass or pleural effusion. Minimal scarring left costophrenic angle. CARDIAC SIL[place]ETTE: Unremarkable. MEDIASTINUM AND REKHA: Unremarkable. UPPER ABDOMEN: Unremarkable. SKELETON AND SOFT TISSUES: No acute findings. OTHER DEVICES AND HARDWARE: None. RAD/Chest 1 View (Portable) IMPRESSION: No acute findings on this portable exam. Follow-up as clinically indicated. at 0043 Reported and signed by: Olivia Caro MD Electronically Signed: Olivia Caro MD at 0:43 EDT Tel , Service support ,
[2019-02-22 01:05] LABS: Mucous, Urine 0 SEEN /hpf (<or=2+); Red Blood Cells-Urine 0 SEEN /hpf (0-5); White Blood Cells 0 SEEN /hpf (0-5)
[2019-02-22 01:13] LABS: Color, Urine Yellow (Yellow); Glucose, Dipstick Normal (Normal); Ketone-Dipstick Negative (Negative); Leukocyte Esterase-Dipstick Negative /ul (Negative); Nitrite-Dipstick Negative (Negative); Occult Blood-Urine Negative /ul (Negative); Protein-Dipstick Negative (Negative); Urine Bilirubin Dipstick Negative (Negative); Urine Clarity Sl. Cloudy (Clear); Urine Urobilinogen Normal (Normal)
[2019-02-22 01:20] LABS: Amorphous Sediment 2+; Bacteria RARE /hpf (None Seen); Squamous Epithelial Cells - UA 0-5 SEEN /hpf (0-5)
[2019-02-22 01:20] LABS: Lactic Acid 1.4 mmol/L (0.4-2.0)
--- NOTE | 2019-02-22 01:49 | PCM.HP.STD ---
Problem List (1) Intractable abdominal pain Status: Acute (2) Symptomatic cholelithiasis Status: Inactive History of Present Illness Date of Admission: 02/22/19 Chief Complaint: abdominal pain The patient is a 53 year old M with a significant history of non-Hodgkin's lymphoma, hypothyroidism, chronic obstructive lung disease, chronic hepatitis C, bipolar disorder, history of NH, history of cocaine abuse; chronic pain on butran who had a cholecystectomy a week ago now presenting with excruciating sharp progressively worsening epigastric nonradiating pain that started about 3 days prior to presentation. His pain increases with flexing his abdominal muscles and with pressure. Associated with symptoms is nausea without vomiting. His bowel moved on the day of presentation. Emergent department doctor discussed the case with Dr. Medina, General Surgery who wanted patient to be given Zosyn and to be consulted inpatient. Past Medical History Past Medical History (Chronic Problems): Chronic Problems (Last Reviewed 02/22/19 @ 02:49 by Renato Hutson MD) Avascular necrosis of left femoral head (Chronic) Rheumatoid arthritis (Chronic) Nicotine dependence (Chronic) Old myocardial infarct (Chronic) Medical History: Medical History (Last Reviewed 02/22/19 @ 02:51 by Renato Hutson MD) Nicotine dependence (Chronic) F17.200 Old myocardial infarct (Chronic) I25.2 Bipolar disorder F31.9 Hepatitis C, chronic B18.2 Hypothyroidism E03.9 NH lymphoma C85.90 Panic anxiety syndrome F41.0 chronic obstructive lung disease Allergies methotrexate Adverse Reaction (Verified 02/21/19 22:57) Hives,Rash,Lesions naproxen [From Naprosyn] Adverse Reaction (Verified 02/21/19 22:57) Upset Stomach BEE VENOM Allergy (Uncoded 02/21/19 22:57) Anaphylaxis ROOT BEER Allergy (Uncoded 02/21/19 22:57) Hives Home Medications: Ambulatory Orders Medication Instructions Recorded Levothyroxine [Synthroid] 112 mcg PO DAILY 07/10/16 [place] Carbonate [[place] 300 mg PO DAILY 07/10/16 Carbonate ER] Albuterol Sulfate [Proventil Hfa] 6.7 gm IH Q4H PRN 10/21/16 Gabapentin [Neurontin] 900 mg PO TIDCM 10/21/16 Prazosin HCl 2 mg PO PRN PRN 07/21/17 clindamycin 1 % lotion 1 unit TOPICAL DAILY 30 Days #120 03/21/18 ml cyanocobalamin (vit B-12) 1,000 1,000 syr IM QMONTH 30 Days #1 ml 03/21/18 mcg/mL injection solution predniSONE tablet 60 mg PO DAILY #15 tab 10/06/18 Epi Pen (for allergic rxn) 0.3 mg IM X1 #3 syringe 02/07/19 Buprenorphine [Butrans 5 Mcg/Hr] 10 mcg TD QWEEK 02/14/19 Fluticasone/Vilanterol [Breo 1 each INHALATION DAILY 02/14/19 Ellipta 200-25 Mcg INH] Ginkgo Biloba 500 mg PO DAILY 02/14/19 Montelukast [Singulair] 10 mg PO QHS 02/14/19 Surgical History: Surgical History (Last Reviewed 02/22/19 @ 02:51 by Renato Hutson MD) H/O arthroscopic knee surgery Z98.890 H/O total hip arthroplasty Z96.649 History of appendectomy Z90.49 History of left heart catheterization Z98.890 facial reconstructive surgery Surgical History: appendectomy, arthroscopy, knee, cholecystectomy, total hip arthroplasty, - - Facial reconstructive surgery. Psychiatric History: Bipolar Smoking Status: Current every day smoker Tobacco Use: Cigarettes - *Family History Maternal History Items: Cancer Paternal History Items: Cancer Review of Systems Constitutional: Reports: Anorexia, Fever - Subjective. Denies: Weight Change HEENT: Denies: Head Aches, Sinus Congestion, Sinus Drainage Cardiovascular: Denies: Chest Pain, Palpitations Respiratory: Denies: Cough, Shortness of breath at rest, Sputum production Gastrointestinal: Reports: Abdominal Pain, Nausea. Denies: Vomiting Genitourinary: Denies: Dysuria Musculoskeletal: Denies: Joint Pain, Joint Tenderness Skin: Denies: Rash, Wounds Neurological: Denies: Numbness, Tingling, Focal weakness Psychiatric: Reports: Depression. Denies: Homicidal Ideations, Suicidal Ideations Hematologic/ Lymphatic: Denies: Easy Bruising, Easy Bleeding VTE Information - Inpt Only VTE Present on Admission: No VTE Mechan Device Prophylaxis: None VTE Pharm Prophylaxis ordered?: Yes Patient Problems: Active and Suspected Problems (Last Reviewed 02/22/19 @ 02:49 by Renato Hutson MD) Intractable abdominal pain (Acute) - Physical Exam General: Alert, Oriented x3, Cooperative HEENT: Atraumatic, PERRLA, EOMI, Normocephalic Neck: Supple, No JVD, Negative Carotid Bruits Lungs: No rhonchi, No rales, Wheezes - transient Cardiovascular: Regular rate, No murmurs Abdomen: Bowel Sounds Present, Soft, Non Tender Extremities: No edema, Capillary Refill Less than 3 Seconds Skin: - - Diffuse patches Musculoskeletal: No Tenderness to Palpation of Joints or Extremities Neurological: Cranial nerves II-XII grossly intact Psych/Mental Status: Normal Affect, Anxious Vital Signs Temp Pulse Resp BP Pulse Ox 98.5 F 75 19 H 146/85 H 95 02/21/19 22:53 02/22/19 01:26 02/22/19 01:26 02/22/19 01:26 02/22/19 01:26 Oxygen Delivery Method Room Air Weight: 85.3 kg Body Mass Index (BMI) 30.3 Intake and Output for Last 24 Hours 02/20/19 02/21/19 02/22/19 23:59 23:59 23:59 Intake Total 500 / 500 Balance 500 / 500 Laboratory Tests Past 24 Hrs 02/21/19 02/21/19 02/21/19 23:05 23:05 23:05 WBC 36.9 H* RBC 4.66 Hgb 15.2 Hct 45.7 MCV 98.1 H MCH 32.6 H MCHC 33.3 RDW Std Deviation 50.2 H RDW Coeff of Re 13.8 Plt Count 336 MPV 8.6 Immature Gran % (Auto) 1.200 H Neut % (Auto) 66.3 Lymph % (Auto) 26.1 [place] % (Auto) 6.1 Eos % (Auto) 0.1 Baso % (Auto) 0.2 Absolute Neuts (auto) 24.5 H Absolute Lymphs (auto) 9.62 H Nucleated RBC % 0 Differential Comment SCANNED Diff Path Review May foll Sodium 140 Potassium 3.6 Chloride 107 Carbon Dioxide 29.0 Anion Gap 4 L BUN 16 Creatinine 1.07 Estim Creat Clear Calc 73.70 Est GFR (MDRD) Af Amer 93 Est GFR (MDRD) Non-Af 77 BUN/Creatinine Ratio 15.0 Glucose 116 H Lactic Acid Calcium 8.7 Total Bilirubin 0.60 Direct Bilirubin 0.18 AST 18 ALT 68 H Alkaline Phosphatase 77 Total Protein 5.9 L Albumin 3.0 L Globulin 2.9 Lipase 53 L Urine Color Urine Clarity Urine pH Ur Specific [place] Urine Protein Urine Glucose (UA) Urine Ketones Urine Occult Blood Urine Nitrite Urine Bilirubin Urine Urobilinogen Ur Leukocyte Esterase Urine RBC Urine WBC Ur Squamous Epith Cells Amorphous Sediment Urine Bacteria Urine Mucus [place] 02/21/19 02/22/19 02/22/19 23:05 00:50 00:58 WBC RBC Hgb Hct MCV MCH MCHC RDW Std Deviation RDW Coeff of Re Plt Count MPV Immature Gran % (Auto) Neut % (Auto) Lymph % (Auto) [place] % (Auto) Eos % (Auto) Baso % (Auto) Absolute Neuts (auto) Absolute Lymphs (auto) Nucleated RBC % Differential Comment Diff Path Review Sodium Potassium Chloride Carbon Dioxide Anion Gap BUN Creatinine Estim Creat Clear Calc Est GFR (MDRD) Af Amer Est GFR (MDRD) Non-Af BUN/Creatinine Ratio Glucose Lactic Acid 1.4 Calcium Total Bilirubin Direct Bilirubin AST ALT Alkaline Phosphatase Total Protein Albumin Globulin Lipase Urine Color Yellow Urine Clarity Sl. Cloudy Urine pH 7.0 Ur Specific [place] 1.010 Urine Protein Negative Urine Glucose (UA) Normal Urine Ketones Negative Urine Occult Blood Negative Urine Nitrite Negative Urine Bilirubin Negative Urine Urobilinogen Normal Ur Leukocyte Esterase Negative Urine RBC 0 SEEN Urine WBC 0 SEEN Ur Squamous Epith Cells 0-5 SEEN Amorphous Sediment 2+ Urine Bacteria RARE Urine Mucus 0 SEEN [place] 0.40 L Assessment/Plan All Active Problems (Last Reviewed 02/22/19 @ 02:49 by Renato Hutson MD) Leukocytosis (Acute) Intractable abdominal pain (Acute) Cocaine abuse (Resolved) Reaction, drug, adverse (Resolved) The patient is a 53 year old M with a significant history of non-Hodgkin's lymphoma, hypothyroidism, chronic obstructive lung disease, chronic hepatitis C, bipolar disorder, history of NH, history of cocaine abuse; chronic pain on butran who had a cholecystectomy a week ago now presenting with excruciating sharp progressively worsening epigastric nonradiating pain . Intractable abdominal pain CT of abdomen and pelvis showed stranding and fluid in the gallbladder fossa and tracking along the common duct which is nonspecific but could indicate presence of cholangitis. Patient has no jaundice. He has no objective fever. Different diagnoses include cholangitis. Patient was started on Zosyn emergency department; continued. We will keep patient n.p.o. except meds. Supportive treatment with IV fluids; lactated Ringer's. Will order morphine for severe pain and oxycodone for moderate pain PRN antiemetics and PRN bowel protocol ordered. Noted to have leukocytosis; trend. Although patient has always had elevated white count is way above his previous values. Of note patient is on home prednisone but he cannot fully explain his leukocytosis General surgery consult. Chronic pain Home Butran continued Noted that he has only half of his butran patch on. Patient and family report that the pain management is aware. Family reports difficulty in refilling butran prescription because od some insurance issues. Non-Hodgkin's lymphoma Patient follows up with Dr. Matta Dermatitis On home clindamycin cream; continued Rheumatoid arthritis Prednisone continued DVT prophylaxis Subcutaneous heparin Code Visit Inpatient E&M: 36667 Init Hosp L3
[2019-02-22] MEDS: Morphine 2 MG/ML Syringe IV (03:07)
[2019-02-22] MEDS: Lactated Ringers 1,000 ML 75 ML IV (03:07)
[2019-02-22] MEDS: Ondansetron 4 MG/2 ML Vial IV (03:07)
[2019-02-22 06:18] LABS: Absolute Lymphocyte Count 1.28 X10^3/uL (0.83-4.51); Absolute Neutrophil Count 10.4 X10^3/uL (2.0-7.7); Basophil# 0.01 X10^3/uL; Basophil% 0.1 % (0-1); Eosinophil# 0.02 X10^3/uL; Eosinophils% 0.2 % (0-5); Hematocrit 36.6 % (40-54); Hemoglobin 12.1 g/dL (13.0-16.5); Lymphocyte # 1.28 X10^3/ul (4.0); Lymphocyte % 10.4 % (19-41); Mean Corp Hgb Conc 33.1 g/dL (32-36); Mean Corpuscular Hgb 31.8 pg (27.0-32.0); Mean Corpuscular Volume 96.3 fL (80-94); Monocyte# 0.51 X10^3/uL; Monocyte% 4.2 % (0-10); NRBC Flagged by Analyzer 0 % (0-5); Neutrophil % 84.6 % (47-70); POSITIVE COUNT YES; Platelet Count 119 K/mm3 (150-450); RBC Distribution Width CV 16.5 % (11.6-14.6); RBC Distribution Width SD 57.8 fl (35.1-43.9); White Blood Count 12.3 K/mm3 (4.4-11.0)
[2019-02-22] MEDS: Acetaminophen 650 MG Suppository RECTAL ×2 (06:40→17:57)
--- NOTE | 2019-02-22 06:40 | CON.PCM_ITS ---
- Consult Date of Consult: 02/22/19 - Reason for Consult History of Present Illness Date of Admission: 02/22/19 Chief Complaint: RUQ pain The patient is a 53 year old WM who is s/p laparoscopic cholecystectomy with cholangiograms done on 02/14/[address] Scanlon. The patient's states that he has had right upper quadrant abdominal pain since the surgery. He had presented to ED on Tuesday, 02/19 with abdominal pain and was discharged. He presents earlier today with severe abdominal pain and found to have elevated WBC but esssentially normal LFTs (though ALT elevated). CT scan was obtained that was suggestive of cholangitis. He has a history of Hepatitis C secondary to IVDA, last used 7 years previously. He has a history of Non Hodgkin lymphoma currently in remission. He smokes, He denies alcohol or other substances. PMHx - hypothyroidism, ? prior [place] but EKG normal sinus and cardiac cath last fall with clean coronaries. history of PTSD. His only prior abdominal surgery is appendectomy. He has had multiple orthopedic surgeries. he is planning to have a knee replacement. He understands he is waiting to have treatment for his hepatitis C until after his knee replacement. he has chronic litchen simplex. Past Medical History Avascular necrosis of left femoral head (Chronic) Rheumatoid arthritis (Chronic) Nicotine dependence (Chronic) Old myocardial infarct (Chronic) Nicotine dependence (Chronic) F17.200 Old myocardial infarct (Chronic) I25.2 Bipolar disorder F31.9 Hepatitis C, chronic B18.2 Hypothyroidism E03.9 NH lymphoma C85.90 Panic anxiety syndrome F41.0 chronic obstructive lung disease Allergies naproxen [From Naprosyn] Adverse Reaction (Verified 02/13/19 19:23) BEE VENOM Allergy (Uncoded 02/13/19 19:23) ROOT BEER Allergy (Uncoded 02/13/19 19:23) Medication Instructions Recorded Levothyroxine [Synthroid] 112 mcg PO DAILY 07/10/16 [place] Carbonate [[place] 300 mg PO DAILY 07/10/16 Carbonate ER] Albuterol Sulfate [Proventil Hfa] 6.7 gm IH Q4H PRN 10/21/16 Gabapentin [Neurontin] 900 mg PO TIDCM 10/21/16 Nitroglycerin 0.4 mg SL PRN PRN 07/21/17 Prazosin HCl 2 mg PO PRN PRN 07/21/17 clindamycin 1 % lotion 1 unit TOPICAL DAILY 30 Days #120 03/21/18 cyanocobalamin (vit B-12) 1,000 1,000 syr IM QMONTH 30 Days #1 ml 03/21/18 mcg/mL injection solution ginseng 250 mg capsule 250 mg PO DAILY 03/22/18 predniSONE tablet 60 mg PO DAILY #15 tab 10/06/18 Epi Pen (for allergic rxn) 0.3 mg IM X1 #3 syringe 02/07/19 Buprenorphine [Butrans 5 Mcg/Hr] 10 mcg TD QWEEK 02/14/19 Chlorhexidine Gluconate [Hibiclens] 15 ml TP DAILY 02/14/19 Fluticasone/Vilanterol [Breo 1 each INHALATION DAILY 02/14/19 Ellipta 200-25 Mcg INH] Ginkgo Biloba 500 mg PO DAILY 02/14/19 Montelukast [Singulair] 10 mg PO QHS 02/14/19 Surgical History: H/O arthroscopic knee surgery Z98.890 H/O total hip arthroplasty Z96.649 History of appendectomy Z90.49 History of left heart catheterization Z98.890 facial reconstructive surgery Surgical History: appendectomy, arthroscopy, knee, total hip arthroplasty, - - Facial reconstructive surgery. Psychiatric History: Bipolar Smoking Status: Current every day smoker - *Family History Maternal History Items: No pertinent history Paternal History Items: No pertinent history Review of Systems Constitutional: Reports: Anorexia HEENT: Denies: Head Aches, Sinus Congestion, Sinus Drainage Cardiovascular: Denies: Chest Pain, Palpitations Respiratory: Denies: Cough, Shortness of breath at rest, Sputum production Gastrointestinal: Reports: Abdominal Pain. Denies: Nausea, Vomiting Genitourinary: Denies: Dysuria Musculoskeletal: Denies: Joint Pain, Joint Tenderness Skin: Denies: Rash, Wounds Neurological: Denies: Numbness, Tingling, Focal weakness Psychiatric: Denies: Anxiety, Depression, Homicidal Ideations, Suicidal Ideations Hematologic/ Lymphatic: Denies: Easy Bruising, Easy Bleeding Physical Exam General: responds to verbal stimuli, somnolent Lungs: Clear to auscultation, Normal air movement Cardiovascular: Regular rate, No murmurs Abdomen: Tender - RUQ, + Li's sign Skin: Rash Present Assessment/Plan Right upper quadrant abdominal pain - s/p laparoscopic cholecystectomy POD#8 Leukocytosis (Acute) Cocaine abuse (Resolved) Hepatitis C, untreated Admitted to hospital IV antibiotics instituted
[2019-02-22] MEDS: 0.9% Normal Saline 1,000 ML 175 ML IV (06:41)
[2019-02-22 06:43] LABS: Differential Indicated SCAN CRITERIA MET
--- NOTE | 2019-02-22 06:53 | PCM.PN.SRG ---
Patient Problems: Active and Suspected Problems (Last Reviewed 02/22/19 @ 02:51 by Renato Hutson MD) Cholangitis (Acute) Sepsis (Acute) Intractable abdominal pain (Acute) Subjective: This morning, found by nurses - patient in bathroom, patient is somnolent, responds only to verbal His states that this is not his baseline Patient has PTSD - states avoid physical contact such as shaking Nurses note temp of 104F WBC decreased from 35K to 12K with left shift right upper quadrant tenderness noted - Physical Exam General: Lethargic, - - responds to verbal but not comprehensible Oral: Moist Mucosa Neck: Supple Lungs: Normal air movement Abdomen: Soft, Tender - right upper quadrant - responds to pain Vital Signs Temp Pulse Resp BP Pulse Ox 103.2 F H 143 H 28 H 130/71 H 90 02/22/19 06:46 02/22/19 06:46 02/22/19 06:46 02/22/19 06:46 02/22/19 06:46 Oxygen Delivery Method Room Air Weight: 85.3 kg Body Mass Index (BMI) 29.9 Intake and Output for Last 24 Hours 02/20/19 02/21/19 02/22/19 23:59 23:59 23:59 Intake Total 500 / 500 79 / 79 Balance 500 / 500 79 / 79 Laboratory Tests Past 24 Hrs 02/21/19 02/21/19 02/21/19 23:05 23:05 23:05 WBC 36.9 H* RBC 4.66 Hgb 15.2 Hct 45.7 MCV 98.1 H MCH 32.6 H MCHC 33.3 RDW Std Deviation 50.2 H RDW Coeff of Re 13.8 Plt Count 336 MPV 8.6 Immature Gran % (Auto) 1.200 H Neut % (Auto) 66.3 Lymph % (Auto) 26.1 [place] % (Auto) 6.1 Eos % (Auto) 0.1 Baso % (Auto) 0.2 Absolute Neuts (auto) 24.5 H Absolute Lymphs (auto) 9.62 H Nucleated RBC % 0 Differential Comment SCANNED Diff Path Review May foll Sodium 140 Potassium 3.6 Chloride 107 Carbon Dioxide 29.0 Anion Gap 4 L BUN 16 Creatinine 1.07 Estim Creat Clear Calc 73.70 Est GFR (MDRD) Af Amer 93 Est GFR (MDRD) Non-Af 77 BUN/Creatinine Ratio 15.0 Glucose 116 H Lactic Acid Calcium 8.7 Total Bilirubin 0.60 Direct Bilirubin 0.18 AST 18 ALT 68 H Alkaline Phosphatase 77 Total Protein 5.9 L Albumin 3.0 L Globulin 2.9 Lipase 53 L Urine Color Urine Clarity Urine pH Ur Specific [place] Urine Protein Urine Glucose (UA) Urine Ketones Urine Occult Blood Urine Nitrite Urine Bilirubin Urine Urobilinogen Ur Leukocyte Esterase Urine RBC Urine WBC Ur Squamous Epith Cells Amorphous Sediment Urine Bacteria Urine Mucus [place] 02/21/19 02/22/19 02/22/19 23:05 00:50 00:58 WBC RBC Hgb Hct MCV MCH MCHC RDW Std Deviation RDW Coeff of Re Plt Count MPV Immature Gran % (Auto) Neut % (Auto) Lymph % (Auto) [place] % (Auto) Eos % (Auto) Baso % (Auto) Absolute Neuts (auto) Absolute Lymphs (auto) Nucleated RBC % Differential Comment Diff Path Review Sodium Potassium Chloride Carbon Dioxide Anion Gap BUN Creatinine Estim Creat Clear Calc Est GFR (MDRD) Af Amer Est GFR (MDRD) Non-Af BUN/Creatinine Ratio Glucose Lactic Acid 1.4 Calcium Total Bilirubin Direct Bilirubin AST ALT Alkaline Phosphatase Total Protein Albumin Globulin Lipase Urine Color Yellow Urine Clarity Sl. Cloudy Urine pH 7.0 Ur Specific [place] 1.010 Urine Protein Negative Urine Glucose (UA) Normal Urine Ketones Negative Urine Occult Blood Negative Urine Nitrite Negative Urine Bilirubin Negative Urine Urobilinogen Normal Ur Leukocyte Esterase Negative Urine RBC 0 SEEN Urine WBC 0 SEEN Ur Squamous Epith Cells 0-5 SEEN Amorphous Sediment 2+ Urine Bacteria RARE Urine Mucus 0 SEEN [place] 0.40 L 02/22/19 05:48 WBC 12.3 H RBC 3.80 L Hgb 12.1 L Hct 36.6 L MCV 96.3 H MCH 31.8 MCHC 33.1 RDW Std Deviation 57.8 H RDW Coeff of Re 16.5 H Plt Count 119 L MPV 10.0 Immature Gran % (Auto) 0.500 Neut % (Auto) 84.6 H Lymph % (Auto) 10.4 L [place] % (Auto) 4.2 Eos % (Auto) 0.2 Baso % (Auto) 0.1 Absolute Neuts (auto) 10.4 H Absolute Lymphs (auto) 1.28 Nucleated RBC % 0 Differential Comment Diff Path Review Sodium Potassium Chloride Carbon Dioxide Anion Gap BUN Creatinine Estim Creat Clear Calc Est GFR (MDRD) Af Amer Est GFR (MDRD) Non-Af BUN/Creatinine Ratio Glucose Lactic Acid Calcium Total Bilirubin Direct Bilirubin AST ALT Alkaline Phosphatase Total Protein Albumin Globulin Lipase Urine Color Urine Clarity Urine pH Ur Specific [place] Urine Protein Urine Glucose (UA) Urine Ketones Urine Occult Blood Urine Nitrite Urine Bilirubin Urine Urobilinogen Ur Leukocyte Esterase Urine RBC Urine WBC Ur Squamous Epith Cells Amorphous Sediment Urine Bacteria Urine Mucus [place] Medical Necessity - Tobacco Use Smoking Status: Current every day smoker Tobacco Use: Cigarettes Assessment/Plan All Active Problems (Last Reviewed 02/22/19 @ 02:51 by Renato Hutson MD) Cholangitis (Acute) Sepsis (Acute) Leukocytosis (Acute) Intractable abdominal pain (Acute) Cocaine abuse (Resolved) Reaction, drug, adverse (Resolved) Impression: admitted with leukocytosis, right upper quadrant abdominal pain, abnormal CT scan findings febrile this morning and somnolent Plan: transfer to ICU - changes in mental status, concern for sepsis obtain blood cultures labs pending due to lack of IV access, will place central line discussed with Dr. Schaeffer - possible need for ERCP - labs pending continue IV antibiotics consult to Dr. Schaeffer and Dr. Wells - their input is appreciated
--- NOTE | 2019-02-22 06:54 | PCM.PN.BLA ---
Progress Note Notified by nursing staff that Dr. Medina wants patient transferred to ICU. Patient spiked a temp of 103.2. Patient has tachycardia and tachypnea; and with probably abdominal infection; can not ruled out cholangitis. Per nursing staff Dr. Medina walked in just before I had returned page; ordered Tylenol and gave orders; and want patient transferred to the ICU. Patient will be diagnosed with sepsis.
[2019-02-22 06:56] LABS: Bedside Glucose 125 mg/dL (70-110)
[2019-02-22 07:03] LABS: Differential Comment SCANNED
--- NOTE | 2019-02-22 07:15 | NURSING ---
0715 In ICU 7 per bed from [place], [place] RNs/solar hot water installer in attendance. Dr. Medina also present 0725 Charan Wells, Adam and Maksim all present in pt room. Dr.s Schaeffer and Russell to waiting room to speak w/pt's . Pt agitated and resistant to care. unable to follow commands or understand instructions. RAC #20 dc d/t infiltrate. Drs aware no IV access at this time. RN looking for IV site 0736 Ativan 2mg IM given per Dr. Wells order Dr. Medina attempt to begin central line placement. 0746 pt w/cont agitation but less than previous. Geodon 10mg IM given per Dr. Wells order. 0800 Dr. Medina begin line placement HR 148 R 24 BP 96/83 SpO2 99 3lnc 0805 HR 145 R 21 BP 115/72 SpO2 99 3lnc 0810 HR 145 R 21 BP 97/52 SpO2 99 3lnc 0815 HR 146 R 24 BP 101/69 SpO2 99 3lnc LSC TL placed per Dr. Medina 0830 CXR complete, viewed by Dr. Medina, ok to use.
[2019-02-22] MEDS: LORazepam 2 MG/ML Syringe IM (07:36)
[2019-02-22 07:41] LABS: Amphetamine Urine VISTA NEGATIVE (<1000 ng/mL); Barbiturate Urine VISTA NEGATIVE (< 200 ng/mL); Benzodiazepine Urine VISTA NEGATIVE (< 200 ng/mL); Cocaine Urine VISTA NEGATIVE (< 300 ng/mL); Ecstacy Urine VISTA NEGATIVE (< 500 ng/mL); Methadone Urine VISTA NEGATIVE (< 300 ng/mL); PCP Urine VISTA NEGATIVE (< 25 ng/mL); THC Urine VISTA NEGATIVE (< 50 ng/mL); Vista UDS pH Range 7
--- NOTE | 2019-02-22 07:45 | NURSING ---
This RN walked into patients room and found patient in the bathroom standing at the toilet. Patients gown was off, IV intact, patient was found to be incontinent. This RN assisted patient in the bathroom, patient standing yet non verbal, patient instructed to hold onto the side rail. This RN then called for help via bathroom call light and charge attendant answered and this RN asked for help. roof cement and paint maker came to room along with another staff members. This RN, student nurse, and charge attendant assisted patient back to bed. Patient nonverbal and lethargic. VS obtained, see VS. House Painter called for hospitalists to be paged, awaited return call. During this time Dr. Medina came in at bedside and this RN updated patient on his current status. New verbal orders received. IVF rate increased, IV ATB hung per MD order (pharmacy called and notified), and rectal Tylenol ordered and given. Lab also in at bedside at this time to obtain labs- were unsuccessful, MD aware. Order received to transfer patient to ICU bed 7. Hospitalists called roof cement and paint maker and notified her that he spoke with Dr. Medina and was aware of the situation. While IVF's were infusing per orders, the 20g in RAC infiltrated, IVF stopped. MD notified. Report called to ICU Francisca ALEJO. Before transferring patient to ICU this RN obtained another set of VS, see VS. Patient still lethargic. This RN and roof cement and paint maker and another staff midwife/apprenticeship director transferred patient to bed 7 ICU. During this whole time patients was at bedside. Dr. Medina spoke with and explained to her reason for transfer. on phone talking with family and updating them.
[2019-02-22] MEDS: Ziprasidone IM 20 MG/ML VIAL IM (07:46)
--- NOTE | 2019-02-22 07:50 | CON.PCM_ITS ---
Problem List (1) Cholangitis Status: Acute Reason for Consult Date of Consultation: 02/22/19 Reason for Consultation: Possible cholangitis History of Present Illness: The patient is a 53 year old M who had laparoscopic cholecystectomy 1 week ago. At that time the patient had normal cholangiogram. Patient presented once more to the hospital this week with abdominal pain. The patient became septic and was transferred to the ICU. Patient is complaining of abdominal pain. Past Medical History Past Medical History (Chronic Problems): Chronic Problems (Last Reviewed 02/22/19 @ 02:51 by Renato Hutson MD) Avascular necrosis of left femoral head (Chronic) Rheumatoid arthritis (Chronic) Nicotine dependence (Chronic) Old myocardial infarct (Chronic) Medical History: Medical History (Last Reviewed 02/22/19 @ 02:51 by Renato Hutson MD) Nicotine dependence (Chronic) F17.200 Old myocardial infarct (Chronic) I25.2 Bipolar disorder F31.9 Hepatitis C, chronic B18.2 Hypothyroidism E03.9 NH lymphoma C85.90 Panic anxiety syndrome F41.0 chronic obstructive lung disease Allergies methotrexate Adverse Reaction (Verified 02/21/19 22:57) Hives,Rash,Lesions naproxen [From Naprosyn] Adverse Reaction (Verified 02/21/19 22:57) Upset Stomach BEE VENOM Allergy (Uncoded 02/21/19 22:57) Anaphylaxis ROOT BEER Allergy (Uncoded 02/21/19 22:57) Hives Home Medications: Ambulatory Orders Medication Instructions Recorded Levothyroxine [Synthroid] 112 mcg PO DAILY 07/10/16 [place] Carbonate [[place] 300 mg PO DAILY 07/10/16 Carbonate ER] Albuterol Sulfate [Proventil Hfa] 6.7 gm IH Q4H PRN 10/21/16 Gabapentin [Neurontin] 900 mg PO TIDCM 10/21/16 Prazosin HCl 2 mg PO PRN PRN 07/21/17 clindamycin 1 % lotion 1 unit TOPICAL DAILY 30 Days #120 03/21/18 ml cyanocobalamin (vit B-12) 1,000 1,000 syr IM QMONTH 30 Days #1 ml 03/21/18 mcg/mL injection solution predniSONE tablet 60 mg PO DAILY #15 tab 10/06/18 Epi Pen (for allergic rxn) 0.3 mg IM X1 #3 syringe 02/07/19 Buprenorphine [Butrans 5 Mcg/Hr] 10 mcg TD QWEEK 02/14/19 Fluticasone/Vilanterol [Breo 1 each INHALATION DAILY 02/14/19 Ellipta 200-25 Mcg INH] Ginkgo Biloba 500 mg PO DAILY 02/14/19 Montelukast [Singulair] 10 mg PO QHS 02/14/19 Surgical History: Surgical History (Last Reviewed 02/22/19 @ 02:51 by Renato Hutson MD) H/O arthroscopic knee surgery Z98.890 H/O total hip arthroplasty Z96.649 History of appendectomy Z90.49 History of left heart catheterization Z98.890 facial reconstructive surgery Surgical History: appendectomy, arthroscopy, knee, cholecystectomy, total hip arthroplasty, - - Facial reconstructive surgery. Psychiatric History: Bipolar Smoking Status: Current every day smoker Tobacco Use: Cigarettes - *Family History Maternal History Items: Cancer Paternal History Items: Cancer Review of Systems Unable to obtain accurate/complete ROS d/t: Patient is obtunded Patient Problems: Active and Suspected Problems (Last Reviewed 02/22/19 @ 02:51 by Renato Hutson MD) Cholangitis (Acute) Sepsis (Acute) Intractable abdominal pain (Acute) - Physical Exam General: Confused, Disoriented, Lethargic Neck: No JVD Lungs: Tachypneic Cardiovascular: Tachycardic Abdomen: Soft, Tender - Right upper quadrant Skin: Rash Present Musculoskeletal: No Muscle Wasting Vital Signs Temp Pulse Resp BP Pulse Ox 102.9 F H 149 H 28 H 103/54 L 98 02/22/19 07:00 02/22/19 07:00 02/22/19 07:00 02/22/19 07:00 02/22/19 07:00 Oxygen Flow Rate (L/min) 3 Oxygen Delivery Method Nasal Cannula Weight: 188 lb 0.869 oz Body Mass Index (BMI) 29.9 Intake and Output for Last 24 Hours 02/20/19 02/21/19 02/22/19 23:59 23:59 23:59 Intake Total 500 / 500 79 / 79 Balance 500 / 500 79 / 79 Laboratory Tests Past 24 Hrs 02/21/19 02/21/19 02/21/19 23:05 23:05 23:05 WBC 36.9 H* RBC 4.66 Hgb 15.2 Hct 45.7 MCV 98.1 H MCH 32.6 H MCHC 33.3 RDW Std Deviation 50.2 H RDW Coeff of Re 13.8 Plt Count 336 MPV 8.6 Immature Gran % (Auto) 1.200 H Neut % (Auto) 66.3 Lymph % (Auto) 26.1 [place] % (Auto) 6.1 Eos % (Auto) 0.1 Baso % (Auto) 0.2 Absolute Neuts (auto) 24.5 H Absolute Lymphs (auto) 9.62 H Nucleated RBC % 0 Differential Comment SCANNED Diff Path Review May foll Sodium 140 Potassium 3.6 Chloride 107 Carbon Dioxide 29.0 Anion Gap 4 L BUN 16 Creatinine 1.07 Estim Creat Clear Calc 73.70 Est GFR (MDRD) Af Amer 93 Est GFR (MDRD) Non-Af 77 BUN/Creatinine Ratio 15.0 Glucose 116 H Lactic Acid Calcium 8.7 Total Bilirubin 0.60 Direct Bilirubin 0.18 AST 18 ALT 68 H Alkaline Phosphatase 77 Total Protein 5.9 L Albumin 3.0 L Globulin 2.9 Lipase 53 L Urine Color Urine Clarity Urine pH Ur Specific [place] Urine Protein Urine Glucose (UA) Urine Ketones Urine Occult Blood Urine Nitrite Urine Bilirubin Urine Urobilinogen Ur Leukocyte Esterase Urine RBC Urine WBC Ur Squamous Epith Cells Amorphous Sediment Urine Bacteria Urine Mucus Urine Opiates Screen Urine Methadone Screen Ur Barbiturates Screen Ur Phencyclidine Scrn Ur Amphetamines Screen U Methamphetamin-MDMA U Benzodiazepines Scrn [place] Urine Cocaine Screen U Cannabinoids Screen Ur Drug Screen Comment 02/21/19 02/22/19 02/22/19 23:05 00:50 00:58 WBC RBC Hgb Hct MCV MCH MCHC RDW Std Deviation RDW Coeff of Re Plt Count MPV Immature Gran % (Auto) Neut % (Auto) Lymph % (Auto) [place] % (Auto) Eos % (Auto) Baso % (Auto) Absolute Neuts (auto) Absolute Lymphs (auto) Nucleated RBC % Differential Comment Diff Path Review Sodium Potassium Chloride Carbon Dioxide Anion Gap BUN Creatinine Estim Creat Clear Calc Est GFR (MDRD) Af Amer Est GFR (MDRD) Non-Af BUN/Creatinine Ratio Glucose Lactic Acid 1.4 Calcium Total Bilirubin Direct Bilirubin AST ALT Alkaline Phosphatase Total Protein Albumin Globulin Lipase Urine Color Yellow Urine Clarity Sl. Cloudy Urine pH 7.0 Ur Specific [place] 1.010 Urine Protein Negative Urine Glucose (UA) Normal Urine Ketones Negative Urine Occult Blood Negative Urine Nitrite Negative Urine Bilirubin Negative Urine Urobilinogen Normal Ur Leukocyte Esterase Negative Urine RBC 0 SEEN Urine WBC 0 SEEN Ur Squamous Epith Cells 0-5 SEEN Amorphous Sediment 2+ Urine Bacteria RARE Urine Mucus 0 SEEN Urine Opiates Screen Urine Methadone Screen Ur Barbiturates Screen Ur Phencyclidine Scrn Ur Amphetamines Screen U Methamphetamin-MDMA U Benzodiazepines Scrn [place] 0.40 L Urine Cocaine Screen U Cannabinoids Screen Ur Drug Screen Comment 02/22/19 02/22/19 00:58 05:48 WBC 12.3 H RBC 3.80 L Hgb 12.1 L Hct 36.6 L MCV 96.3 H MCH 31.8 MCHC 33.1 RDW Std Deviation 57.8 H RDW Coeff of Re 16.5 H Plt Count 119 L MPV 10.0 Immature Gran % (Auto) 0.500 Neut % (Auto) 84.6 H Lymph % (Auto) 10.4 L [place] % (Auto) 4.2 Eos % (Auto) 0.2 Baso % (Auto) 0.1 Absolute Neuts (auto) 10.4 H Absolute Lymphs (auto) 1.28 Nucleated RBC % 0 Differential Comment SCANNED Diff Path Review Sodium Potassium Chloride Carbon Dioxide Anion Gap BUN Creatinine Estim Creat Clear Calc Est GFR (MDRD) Af Amer Est GFR (MDRD) Non-Af BUN/Creatinine Ratio Glucose Lactic Acid Calcium Total Bilirubin Direct Bilirubin AST ALT Alkaline Phosphatase Total Protein Albumin Globulin Lipase Urine Color Urine Clarity Urine pH Ur Specific [place] Urine Protein Urine Glucose (UA) Urine Ketones Urine Occult Blood Urine Nitrite Urine Bilirubin Urine Urobilinogen Ur Leukocyte Esterase Urine RBC Urine WBC Ur Squamous Epith Cells Amorphous Sediment Urine Bacteria Urine Mucus Urine Opiates Screen POSITIVE H Urine Methadone Screen NEGATIVE Ur Barbiturates Screen NEGATIVE Ur Phencyclidine Scrn NEGATIVE Ur Amphetamines Screen NEGATIVE U Methamphetamin-MDMA NEGATIVE U Benzodiazepines Scrn NEGATIVE [place] Urine Cocaine Screen NEGATIVE U Cannabinoids Screen NEGATIVE Ur Drug Screen Comment POC Glucose 02/22/19 06:27 POC Glucose 125 H Clinical Impression(s) from Imaging Studies Chest X-Ray 02/22/19 00:24 IMPRESSION: No acute findings on this portable exam. Follow-up as clinically indicated. at 0043 Reported and signed by: Olivia Caro MD Electronically Signed: Olivia Caro MD at 0:43 EDT Tel , Service support , Abdomen/Pelvis CT 02/22/19 23:02 IMPRESSION: Findings consistent with recent cholecystectomy. Stranding and fluid in the gallbladder fossa and tracking along the common duct are nonspecific but could indicate the presence of cholangitis. Correlation with clinical findings is needed. Additional findings above. Individualized dose optimization techniques were used for this CT. at 0127 Reported and signed by: Olivia Caro MD Electronically Signed: Olivia Caro MD at 1:27 EDT Tel , Service support , Assessment/Plan All Active Problems (Last Reviewed 02/22/19 @ 02:51 by Renato Hutson MD) Cholangitis (Acute) Sepsis (Acute) Leukocytosis (Acute) Intractable abdominal pain (Acute) Cocaine abuse (Resolved) Reaction, drug, adverse (Resolved) 53-year-old male with possible cholangitis 1. Patient had elevated white count but normal LFTs yesterday. Unable to draw LFTs today due to loss of venous access. Central line is being placed currently for medications and blood draws. 2. Patient had cholecystectomy 1 week ago with normal cholangiogram. The patient has CT scan which showed stranding around the common bile duct suggestive of possible cholangitis. The patient became febrile and tachycardic this morning as well as tachypneic. 3. I discussed his present situation with the patient's . The patient's states that he would not want any intubation under any circumstance or chest compressions. The patient is DNR CCA. I explained that if the patient does have cholangitis the treatment would be ERCP with placement of stent. This would likely mean protracted intubation as the patient is unstable. The patient's refuses the procedure as the patient would not want extended intubation. Patients has also stated that he would not want any compressions if there is any cardiac arrest. The patients says that they have discussed this in detail and he would rather than be intubated or have chest compressions. The patient does have severe PTSD. At this time continue to treat with IV antibiotics and pressors as needed. The range feeder is also discussed this with his and the patient will remain DNR CCA with no intubation. Zachary Schaeffer MD Pager: [facility] [address] [place] [address] [address] [place] [address] Office:
--- NOTE | 2019-02-22 08:00 | PCM.CON.CC ---
Reason for Consult Date of Consultation: 02/22/19 Reason for Consultation: Sepsis History of Present Illness: The patient is a 53-year-old male, with a history as outlined below, who presented to the emergency department on February 21 with complaints of intractable abdominal pain. The patient has a history of Hodgkin's lymphoma (which is reportedly in remission), chronic hepatitis C, prior IV drug abuse (sober x7 years), chronic pain syndrome, posttraumatic stress disorder, rheumatoid arthritis with chronic immunosuppression, tobacco dependency, bipolar disorder and neuropathy The patient was just recently admitted to the hospital February 14 after presenting with right upper quadrant abdominal pain. The patient underwent a semi-urgent laparoscopic cholecystectomy with intraoperative cholangiogram by Dr. Scanlon. Postoperatively, the patient's abdominal pain had improved. He was subsequently discharged home. On presentation to the emergency department, the patient was initially noted to be afebrile hemodynamically stable. Initial laboratory evaluation revealed an elevated white blood cell count to 37,000. Chemistry profile was largely unrevealing. Lactate was noted to be 1.4. ALT was mildly increased to 68. Alkaline phosphatase was within normal limits. Total bili was within normal limits. Lipase was unremarkable. Urinalysis revealed no findings concerning for infection. Toxicology screen was positive for opiates. Plain film chest x-ray revealed no acute cardiopulmonary process. CT abdomen apparently revealed stranding and fluid in the gallbladder fossa, concerning for potential cholangitis. The patient was started on antibiotics and blood cultures were collected. The case was discussed with general surgery. The patient was initially admitted to the medical surgical floor for further management. Following evaluation by general surgery and over concerns for potential clinical decompensation in the setting of sepsis, the patient was transferred to the medical intensive care unit. On arrival to the ICU, the patient had no form of IV access. A left subclavian central venous catheter was subsequently placed by general surgery. The patient was evaluated for potential ERCP. However, upon my discussion with the patient and his , they both made it clear to me that the patient is a DNR CCA without intubation. Given that there was a possibility that the patient would require intubation to facilitate an ERCP, they elected to forego intervention. The patient was aggressively volume resuscitated and placed on meropenem. Past Medical History Past Medical History (Chronic Problems): Chronic Problems (Last Reviewed 02/22/19 @ 02:51 by Renato Hutson MD) Avascular necrosis of left femoral head (Chronic) Rheumatoid arthritis (Chronic) Nicotine dependence (Chronic) Old myocardial infarct (Chronic) Medical History: Medical History (Last Reviewed 02/22/19 @ 02:51 by Renato Hutson MD) Nicotine dependence (Chronic) F17.200 Old myocardial infarct (Chronic) I25.2 Bipolar disorder F31.9 Hepatitis C, chronic B18.2 Hypothyroidism E03.9 NH lymphoma C85.90 Panic anxiety syndrome F41.0 chronic obstructive lung disease Allergies methotrexate Adverse Reaction (Verified 02/21/19 22:57) Hives,Rash,Lesions naproxen [From Naprosyn] Adverse Reaction (Verified 02/21/19 22:57) Upset Stomach BEE VENOM Allergy (Uncoded 02/21/19 22:57) Anaphylaxis ROOT BEER Allergy (Uncoded 02/21/19 22:57) Hives Home Medications: Ambulatory Orders Medication Instructions Recorded Levothyroxine [Synthroid] 112 mcg PO DAILY 07/10/16 [place] Carbonate [[place] 300 mg PO DAILY 07/10/16 Carbonate ER] Albuterol Sulfate [Proventil Hfa] 6.7 gm IH Q4H PRN 10/21/16 Gabapentin [Neurontin] 900 mg PO TIDCM 10/21/16 Prazosin HCl 2 mg PO PRN PRN 07/21/17 clindamycin 1 % lotion 1 unit TOPICAL DAILY 30 Days #120 03/21/18 ml cyanocobalamin (vit B-12) 1,000 1,000 syr IM QMONTH 30 Days #1 ml 03/21/18 mcg/mL injection solution predniSONE tablet 60 mg PO DAILY #15 tab 10/06/18 Epi Pen (for allergic rxn) 0.3 mg IM X1 #3 syringe 02/07/19 Buprenorphine [Butrans 5 Mcg/Hr] 10 mcg TD QWEEK 02/14/19 Fluticasone/Vilanterol [Breo 1 each INHALATION DAILY 02/14/19 Ellipta 200-25 Mcg INH] Ginkgo Biloba 500 mg PO DAILY 02/14/19 Montelukast [Singulair] 10 mg PO QHS 02/14/19 Surgical History: Surgical History (Last Reviewed 02/22/19 @ 02:51 by Renato Hutson MD) H/O arthroscopic knee surgery Z98.890 H/O total hip arthroplasty Z96.649 History of appendectomy Z90.49 History of left heart catheterization Z98.890 facial reconstructive surgery Surgical History: appendectomy, arthroscopy, knee, cholecystectomy, total hip arthroplasty, - - Facial reconstructive surgery. Psychiatric History: Bipolar Smoking Status: Current every day smoker Tobacco Use: Cigarettes - *Family History Maternal History Items: Cancer Paternal History Items: Cancer Review of Systems Constitutional: Reports: Chills, Fever Eyes: Denies: Blurred vision, Double vision HEENT: Denies: Head Aches, Sinus Congestion, Sinus Drainage Cardiovascular: Denies: Chest Pain, Palpitations Respiratory: Denies: Cough, Shortness of breath at rest, Sputum production Gastrointestinal: Reports: Abdominal Pain Genitourinary: Denies: Dysuria Musculoskeletal: Reports: - - Chronic pain syndrome Skin: Denies: Rash, Wounds Neurological: Denies: Numbness, Tingling, Focal weakness Psychiatric: Reports: Depression, - - PTSD Hematologic/ Lymphatic: Reports: Adenopathy Patient Problems: Active and Suspected Problems (Last Reviewed 02/22/19 @ 02:51 by Renato Hutson MD) Cholangitis (Acute) Sepsis (Acute) Intractable abdominal pain (Acute) Objective: The patient's most recent lab work, culture data and imaging studies have all been personally reviewed. - Physical Exam General: - - Quite somnolent after having received sedation for central line placement. HEENT: Atraumatic, PERRLA, Normocephalic Oral: Dry Mucosa Neck: Supple, No Nodes, Trachea Midline Lungs: No rhonchi, No wheeze, No rales, Diminished, Tachypneic Cardiovascular: Normal S1, Normal S2, No murmurs, Tachycardic Abdomen: Bowel Sounds Present, Soft, Tender Extremities: No clubbing, No cyanosis, No edema Skin: No breakdown Musculoskeletal: No Tenderness to Palpation of Joints or Extremities Lymphatic: No Cervical, Supraclavicular, or Inguinal Adenopathy Neurological: - - No focal neurological deficits. Vital Signs Temp Pulse Resp BP Pulse Ox 102.9 F H 149 H 28 H 103/54 L 98 02/22/19 07:00 02/22/19 07:00 02/22/19 07:00 02/22/19 07:00 02/22/19 07:00 Oxygen Flow Rate (L/min) 3 Oxygen Delivery Method Nasal Cannula Weight: 188 lb 0.869 oz Body Mass Index (BMI) 29.9 Intake and Output for Last 24 Hours 02/20/19 02/21/19 02/22/19 23:59 23:59 23:59 Intake Total 500 / 500 79 / 79 Balance 500 / 500 79 / 79 Laboratory Tests Past 24 Hrs 02/21/19 02/21/19 02/21/19 23:05 23:05 23:05 WBC 36.9 H* RBC 4.66 Hgb 15.2 Hct 45.7 MCV 98.1 H MCH 32.6 H MCHC 33.3 RDW Std Deviation 50.2 H RDW Coeff of Re 13.8 Plt Count 336 MPV 8.6 Immature Gran % (Auto) 1.200 H Neut % (Auto) 66.3 Lymph % (Auto) 26.1 [place] % (Auto) 6.1 Eos % (Auto) 0.1 Baso % (Auto) 0.2 Absolute Neuts (auto) 24.5 H Absolute Lymphs (auto) 9.62 H Nucleated RBC % 0 Differential Comment SCANNED Diff Path Review May foll Sodium 140 Potassium 3.6 Chloride 107 Carbon Dioxide 29.0 Anion Gap 4 L BUN 16 Creatinine 1.07 Estim Creat Clear Calc 73.70 Est GFR (MDRD) Af Amer 93 Est GFR (MDRD) Non-Af 77 BUN/Creatinine Ratio 15.0 Glucose 116 H Lactic Acid Calcium 8.7 Total Bilirubin 0.60 Direct Bilirubin 0.18 AST 18 ALT 68 H Alkaline Phosphatase 77 Total Protein 5.9 L Albumin 3.0 L Globulin 2.9 Lipase 53 L Urine Color Urine Clarity Urine pH Ur Specific [place] Urine Protein Urine Glucose (UA) Urine Ketones Urine Occult Blood Urine Nitrite Urine Bilirubin Urine Urobilinogen Ur Leukocyte Esterase Urine RBC Urine WBC Ur Squamous Epith Cells Amorphous Sediment Urine Bacteria Urine Mucus Urine Opiates Screen Urine Methadone Screen Ur Barbiturates Screen Ur Phencyclidine Scrn Ur Amphetamines Screen U Methamphetamin-MDMA U Benzodiazepines Scrn [place] Urine Cocaine Screen U Cannabinoids Screen Ur Drug Screen Comment 02/21/19 02/22/19 02/22/19 23:05 00:50 00:58 WBC RBC Hgb Hct MCV MCH MCHC RDW Std Deviation RDW Coeff of Re Plt Count MPV Immature Gran % (Auto) Neut % (Auto) Lymph % (Auto) [place] % (Auto) Eos % (Auto) Baso % (Auto) Absolute Neuts (auto) Absolute Lymphs (auto) Nucleated RBC % Differential Comment Diff Path Review Sodium Potassium Chloride Carbon Dioxide Anion Gap BUN Creatinine Estim Creat Clear Calc Est GFR (MDRD) Af Amer Est GFR (MDRD) Non-Af BUN/Creatinine Ratio Glucose Lactic Acid 1.4 Calcium Total Bilirubin Direct Bilirubin AST ALT Alkaline Phosphatase Total Protein Albumin Globulin Lipase Urine Color Yellow Urine Clarity Sl. Cloudy Urine pH 7.0 Ur Specific [place] 1.010 Urine Protein Negative Urine Glucose (UA) Normal Urine Ketones Negative Urine Occult Blood Negative Urine Nitrite Negative Urine Bilirubin Negative Urine Urobilinogen Normal Ur Leukocyte Esterase Negative Urine RBC 0 SEEN Urine WBC 0 SEEN Ur Squamous Epith Cells 0-5 SEEN Amorphous Sediment 2+ Urine Bacteria RARE Urine Mucus 0 SEEN Urine Opiates Screen Urine Methadone Screen Ur Barbiturates Screen Ur Phencyclidine Scrn Ur Amphetamines Screen U Methamphetamin-MDMA U Benzodiazepines Scrn [place] 0.40 L Urine Cocaine Screen U Cannabinoids Screen Ur Drug Screen Comment 02/22/19 02/22/19 00:58 05:48 WBC 12.3 H RBC 3.80 L Hgb 12.1 L Hct 36.6 L MCV 96.3 H MCH 31.8 MCHC 33.1 RDW Std Deviation 57.8 H RDW Coeff of Re 16.5 H Plt Count 119 L MPV 10.0 Immature Gran % (Auto) 0.500 Neut % (Auto) 84.6 H Lymph % (Auto) 10.4 L [place] % (Auto) 4.2 Eos % (Auto) 0.2 Baso % (Auto) 0.1 Absolute Neuts (auto) 10.4 H Absolute Lymphs (auto) 1.28 Nucleated RBC % 0 Differential Comment SCANNED Diff Path Review Sodium Potassium Chloride Carbon Dioxide Anion Gap BUN Creatinine Estim Creat Clear Calc Est GFR (MDRD) Af Amer Est GFR (MDRD) Non-Af BUN/Creatinine Ratio Glucose Lactic Acid Calcium Total Bilirubin Direct Bilirubin AST ALT Alkaline Phosphatase Total Protein Albumin Globulin Lipase Urine Color Urine Clarity Urine pH Ur Specific [place] Urine Protein Urine Glucose (UA) Urine Ketones Urine Occult Blood Urine Nitrite Urine Bilirubin Urine Urobilinogen Ur Leukocyte Esterase Urine RBC Urine WBC Ur Squamous Epith Cells Amorphous Sediment Urine Bacteria Urine Mucus Urine Opiates Screen POSITIVE H Urine Methadone Screen NEGATIVE Ur Barbiturates Screen NEGATIVE Ur Phencyclidine Scrn NEGATIVE Ur Amphetamines Screen NEGATIVE U Methamphetamin-MDMA NEGATIVE U Benzodiazepines Scrn NEGATIVE [place] Urine Cocaine Screen NEGATIVE U Cannabinoids Screen NEGATIVE Ur Drug Screen Comment POC Glucose 02/22/19 06:27 POC Glucose 125 H Clinical Impression(s) from Imaging Studies Chest X-Ray 02/22/19 00:24 IMPRESSION: No acute findings on this portable exam. Follow-up as clinically indicated. at 0043 Reported and signed by: Olivia Caro MD Electronically Signed: Olivia Caro MD at 0:43 EDT Tel , Service support , Abdomen/Pelvis CT 02/22/19 23:02 IMPRESSION: Findings consistent with recent cholecystectomy. Stranding and fluid in the gallbladder fossa and tracking along the common duct are nonspecific but could indicate the presence of cholangitis. Correlation with clinical findings is needed. Additional findings above. Individualized dose optimization techniques were used for this CT. at 0127 Reported and signed by: Olivia Caro MD Electronically Signed: Olivia Caro MD at 1:27 EDT Tel , Service support , Assessment/Plan Active and Suspected Problems (Last Reviewed 02/22/19 @ 02:51 by Renato Hutson MD) Cholangitis (Acute) Sepsis (Acute) Intractable abdominal pain (Acute) RECOMMENDATIONS: 1. Aggressive IV fluid resuscitation. 2. Initiation of vasopressor support, if needed. 3. Start hydrocortisone 50 mg every 6 hours. 4. Transition to meropenem. 5. Await additional recommendations from general surgery. IMPRESSIONS: 1. Sepsis with concerns for intra-abdominal source of infection While the patient was initially afebrile on presentation, he subsequently spiked a fever to 103.2 degrees. The patient will be aggressively volume resuscitated and continued on broad-spectrum antimicrobial therapy, pending further work-up. General surgery is following. However, given his current CODE STATUS, there are no plans for any form of intervention. I am concerned that in light of the patient's increased metabolic demands, he may decompensate clinically and her ability to care for him will be hindered by his DNR CCA CODE STATUS. I will defer the need for further imaging studies to general surgery. Given that the patient is on chronic prednisone therapy, stress dose steroids will be initiated. 2. Tobacco dependency Continue bronchodilators as ordered. Nicotine replacement therapy can be utilized while admitted to the hospital. 3. Rheumatoid arthritis with chronic immunosuppression Stress dose steroids have been initiated in light of the patient's chronic prednisone use. 4. History of Hodgkin's lymphoma/chronic hepatitis C/posttraumatic stress disorder/bipolar disorder/CODE STATUS Complicates care, management, recovery and prognosis. The patient's lymphoma is currently in remission per report. Patient is currently n.p.o. The patient's CODE STATUS was discussed with both himself and his . Both were in agreement to DNR CCA without intubation. This note was generated with [employer] dictation software. It may contain incorrect words, spelling, and punctuation that were not noted in checking the note before signing. Code Visit Inpatient E&M: 97335 Init Hosp L3
--- NOTE | 2019-02-22 08:11 | RAD_ITS ---
STUDY: X-RAY CHEST REASON FOR EXAM: Male, 53 years old. Central line placement. TECHNIQUE: Single AP portable view of the chest. COMPARISON: Comparison is made with prior study dated February 22, 2019 at 12:29 AM. FINDINGS: A left sided subclavian catheter has been placed. The tip is in the midportion of the superior vena cava. Increased density in the lingular segment of the left upper lobe suggestive of atelectasis and/or infiltrate. There is no demonstrated pleural abnormality. Normal size heart. Normal mediastinum and rima. Normal visualized pulmonary arteries. There is atherosclerotic calcification of the aortic arch with tortuosity. Normal visualized thoracic spine. Normal visualized ribs, clavicles, and shoulders. There is no demonstrated abnormality of the visualized soft tissue structures of the upper abdomen. RAD/CXR for Line Placement IMPRESSION: Atelectasis and/or infiltrate in the lingular segment of the left upper lobe. Electronically Signed: Davis Honeycutt, at 9:43 EDT , Service support ,
[2019-02-22] MEDS: Lactated Ringers 2,000 ML 999 ML IV ×2 (08:30→09:32)
--- NOTE | 2019-02-22 08:45 | PCM.PN.HOSP ---
Patient Problems: Active and Suspected Problems (Last Reviewed 02/22/19 @ 02:51 by Renato Hutson MD) Cholangitis (Acute) Sepsis (Acute) Intractable abdominal pain (Acute) Subjective: Patient was seen and examined. He was sedated at the time of exam. Noted that he was admitted with intractable abdominal pain and developed fever on the [facility] floor. Patient subsequently has been transferred to the ICU. His T-max is 103.2F Vitals/I&O's: Vital Signs Temp Pulse Resp BP Pulse Ox 102.9 F H 149 H 28 H 103/54 L 98 02/22/19 07:00 02/22/19 07:00 02/22/19 07:00 02/22/19 07:00 02/22/19 07:30 Oxygen Flow Rate (L/min) 2 Oxygen Delivery Method Nasal Cannula Weight: 85.3 kg Body Mass Index (BMI) 29.9 Intake and Output for Last 24 Hours 02/20/19 02/21/19 02/22/19 23:59 23:59 23:59 Intake Total 500 / 500 79 / 79 Balance 500 / 500 79 / 79 General: Lethargic - sedated HEENT: Atraumatic, PERRLA, EOMI, Normocephalic Oral: Moist Mucosa Neck: Supple Lungs: Normal air movement, Diminished - at the lung bases, on 2L oxygen Cardiovascular: Regular rate, Regular Rhythm, Normal S1, Normal S2, No murmurs Abdomen: Bowel Sounds Present, Soft, Non-Distended, No Hepato-splenomegaly, - - Unable to assess tenderness Extremities: No edema Skin: No rashes, No breakdown Musculoskeletal: No Tenderness to Palpation of Joints or Extremities Lymphatic: No Cervical, Supraclavicular, or Inguinal Adenopathy Neurological: Cranial nerves II-XII grossly intact Psych/Mental Status: Normal Affect, Appropriate Laboratory Results 02/21/19 23:05: Total Bilirubin 0.60, Direct Bilirubin 0.18, AST 18, ALT 68 H, Alkaline Phosphatase 77, Total Protein 5.9 L, Albumin 3.0 L, Globulin 2.9 02/21/19 23:05: WBC 36.9 H*, RBC 4.66, Hgb 15.2, Hct 45.7, MCV 98.1 H, MCH 32.6 H, MCHC 33.3, RDW Std Deviation 50.2 H, RDW Coeff of Re 13.8, Plt Count 336, MPV 8.6, Immature Gran % (Auto) 1.200 H, Neut % (Auto) 66.3, Lymph % (Auto) 26.1, [place] % (Auto) 6.1, Eos % (Auto) 0.1, Baso % (Auto) 0.2, Absolute Neuts (auto) 24.5 H, Absolute Lymphs (auto) 9.62 H, Nucleated RBC % 0, Differential Comment SCANNED, Diff Path Review October02/21/19 23:05: Sodium 140, Potassium 3.6, Chloride 107, Carbon Dioxide 29.0, Anion Gap 4 L, BUN 16, Creatinine 1.07, Estim Creat Clear Calc 73.70, Est GFR (MDRD) Af Amer 93, Est GFR (MDRD) Non-Af 77, BUN/Creatinine Ratio 15.0, Glucose 116 H, Calcium 8.7, Lipase 53 L 02/21/19 23:05: [place] 0.40 L 02/22/19 00:50: Lactic Acid 1.4 02/22/19 00:58: Urine Color Yellow, Urine Clarity Sl. Cloudy, Urine pH 7.0, Ur Specific [place] 1.010, Urine Protein Negative, Urine Glucose (UA) Normal, Urine Ketones Negative, Urine Occult Blood Negative, Urine Nitrite Negative, Urine Bilirubin Negative, Urine Urobilinogen Normal, Ur Leukocyte Esterase Negative, Urine RBC 0 SEEN, Urine WBC 0 SEEN, Ur Squamous Epith Cells 0-5 SEEN, Amorphous Sediment 2+, Urine Bacteria RARE, Urine Mucus 0 SEEN 02/22/19 00:58: Urine Opiates Screen POSITIVE H, Urine Methadone Screen NEGATIVE, Ur Barbiturates Screen NEGATIVE, Ur Phencyclidine Scrn NEGATIVE, Ur Amphetamines Screen NEGATIVE, U Methamphetamin-MDMA NEGATIVE, U Benzodiazepines Scrn NEGATIVE, Urine Cocaine Screen NEGATIVE, U Cannabinoids Screen NEGATIVE, Ur Drug Screen Comment 02/22/19 05:48: WBC 12.3 H, RBC 3.80 L, Hgb 12.1 L, Hct 36.6 L, MCV 96.3 H, MCH 31.8, MCHC 33.1, RDW Std Deviation 57.8 H, RDW Coeff of Re 16.5 H, Plt Count 119 L, MPV 10.0, Immature Gran % (Auto) 0.500, Neut % (Auto) 84.6 H, Lymph % (Auto) 10.4 L, [place] % (Auto) 4.2, Eos % (Auto) 0.2, Baso % (Auto) 0.1, Absolute Neuts (auto) 10.4 H, Absolute Lymphs (auto) 1.28, Nucleated RBC % 0, Differential Comment SCANNED 02/22/19 06:27: POC Glucose 125 H 02/22/19 08:20: Lactic Acid Pending 02/22/19 08:30: Sodium Pending, Potassium Pending, Chloride Pending, Carbon Dioxide Pending, Anion Gap Pending, BUN Pending, Creatinine Pending, Est GFR (MDRD) Af Amer Pending, Est GFR (MDRD) Non-Af Pending, BUN/Creatinine Ratio Pending, Glucose Pending, Calcium Pending, Total Bilirubin Pending, AST Pending, ALT Pending, Alkaline Phosphatase Pending, Total Protein Pending, Albumin Pending 02/22/19 08:30: PT Pending, INR Pending Current Medications Acetaminophen (Tylenol) 650 mg RECTAL Q4H PRN PRN PRN Reason: FEVER Last Admin: 02/22/19 06:40 Dose: 650 mg Documented by: Albuterol Sulfate (Ventolin Aerosols) 2.5 mg INHALATION Q2H PRN PRN PRN Reason: sob/wheezing Albuterol Sulfate (Ventolin Aerosols) 2.5 mg INHALATION Q6HWA.RT [facility] Last Admin: 02/22/19 07:31 Dose: Not Given Documented by: Dextrose (D50w Syringe) 0 gm IV X1 PRN; Protocol PRN Reason: Hypoglycemia Glucagon () 1 mg IM .X1 PRN PRN Reason: Hypoglycemia Heparin Sodium (Porcine) (Heparin Na) 5,000 unit SC Q8 [facility] Last Admin: 02/22/19 04:37 Dose: Not Given Documented by: Hydrocortisone Sodium Succinate (Solu-Cortef) 50 mg IV Q6 [facility] Sodium Chloride () 250 mls @ 15 mls/hr IV .[id number] PRN PRN Reason: SALINE FLUSH Sodium Chloride () 250 mls @ 15 mls/hr IV .[id number] PRN PRN Reason: SALINE FLUSH Lactated Ringer's () 2,000 mls @ 999 mls/hr IV .Q2H1M [facility] Stop: 02/22/19 09:40 Meropenem 1 gm/ Sodium (Chloride) 120 mls @ 33 mls/hr IV Q8 [facility] Levothyroxine Sodium (Synthroid) 112 mcg PO DAILY@0600 [facility] Last Admin: 02/22/19 06:41 Dose: Not Given Documented by: [place] Carbonate ([place] Carbonate) 300 mg PO DAILY [facility] Montelukast Sodium (Singulair) 10 mg PO QHS [facility] Morphine Sulfate () 2 mg IV Q3H PRN PRN PRN Reason: Severe pain (7-10/10) Last Admin: 02/22/19 03:07 Dose: 2 mg Documented by: Nicotine (Nicoderm Cq (Pbkc)) 21 mg TRANSDERM. DAILY [facility] Non-Formulary Medication (Buprenorphine) 10 mcg TD QWEEK [facility] Ondansetron HCl (Zofran) 4 mg IV Q8H PRN PRN PRN Reason: NAUSEA/VOMITING Last Admin: 02/22/19 03:07 Dose: 4 mg Documented by: Senna/Docusate Sodium (Senokot-S, Stephanie-Colace) 2 tablet PO BID PRN PRN PRN Reason: Constipation Sodium Chloride () 10 - 40 ml IV UD PRN PRN Reason: SALINE FLUSH Sodium Chloride () 10 - 40 ml IV UD PRN PRN Reason: SALINE FLUSH Medical Necessity - Tobacco Use Smoking Status: Current every day smoker Tobacco Use: Cigarettes Assessment/Plan All Active Problems (Last Reviewed 02/22/19 @ 02:51 by Renato Hutson MD) Cholangitis (Acute) Sepsis (Acute) Leukocytosis (Acute) Intractable abdominal pain (Acute) Cocaine abuse (Resolved) Reaction, drug, adverse (Resolved) 33-year-old male with past medical history of non-Hodgkin's lymphoma, chronic hep C, not on treatment, hypothyroidism, history of polysubstance abuse who recently had cholecystectomy a week ago presented on 02/21/19 with worsening abdominal discomfort. Patient's management now has been that of possible cholangitis. 1. Sepsis secondary to probable cholangitis, present on admission, seen on CT scan of the abdomen and pelvis, remains the same Status post laparoscopic cholecystectomy with cholangiograms done on 02/14/19 Leukocytosis improved, liver function tests are unremarkable General surgery consulted, on IV meropenem, will trend blood work 2. Intractable abdominal pain, likely secondary to the above, will continue to monitor Continue with PRN morphine 3. Hypokalemia, replaced, recheck in am 4. Non-Hodgkin's lymphoma, ff with oncology 5. Chronic Hep C, h/o IVDU/tonic pain syndrome 6. Hypothyroidism, on levothyroxine 7. Rest of his past medical history including posttraumatic stress disorder, rheumatoid arthritis with chronic immunosuppression, bipolar and neuropathy - all stable 8. DVT PPx- Heparin SC Code Visit Inpatient E&M: 03766 Subs Hosp L3
--- NOTE | 2019-02-22 08:49 | PCM.OPRPT ---
Report of Operation Date of Procedure: 02/22/19 Pre-Operative Diagnosis: right upper quadrant abdominal pain, leukocytosis, change in mental status, tachycardia, poor IV access Post-Operative Diagnosis: same Surgery/Procedure Performed:: placement of left subclavian central venous triple lumen catheter Description of Surgical Findings:: CXR - no pneumothorax, catheter in left subclavian vein with tip just beyond entrance into SVC Type of Anesthesia:: Local - 1% xylocaine Specimen's removed: none Estimated Blood Loss (mL): < 5 ml Fluids Replaced: none Description of Procedure: This is an emergency procedure. Patient in ICU, needs IV access - febrile, changes in mental status, tachycardia. The patient?s upper left chest and neck were then prepped with a surgical skin preparation and sterile surgical drapes were placed. After proper landmarks were ascertained, the skin at the upper left chest area was then infiltrated with 1% xylocaine. A needle trocar was then inserted into the left subclavian vein and there was good aspiration of venous blood. A wire was then threaded into the needle trocar Once this was done, then the needle trocar was removed. A small skin sohan was made with an 11 blade knife at the wire entrance site. The dilator was then placed over the wire into the left subclavian vein via the Seldinger technique The dilator were then removed. The triple lumen catheter was then threaded into the left subclavian vein via the Seldinger technique. The catheter was aspirated and there was easy aspiration of blood. It was then flushed with a saline flush at all port sites. CXR revealed no pneumothorax and tip just entering into SVC. - Complications none noted - Admit VTE Documentation VTE Present on Admission: Yes VTE Mechan Device Prophylaxis: SCD's
[2019-02-22 08:54] LABS: International Normalized Ratio 0.9; Prothrombin Time (Protime)PT. 12.3 SECONDS (11.7-14.9)
[2019-02-22 09:01] LABS: AST(SGOT) 15 U/L (15-37); Alanine Aminotransfer ALT/SGPT 53 U/L (16-61); Albumin, Serum 2.6 g/dL (3.2-5.0); Alkaline Phosphatase 84 U/L (45-117); Anion Gap 4 (5-15); BUN 14 mg/dL (7-18); BUN/Creat Ratio 12.8 RATIO (10-20); Calcium,Total 8.4 mg/dL (8.5-10.1); Chloride 104 mmol/L (98-107); Creatinine, Serum 1.09 mg/dL (0.70-1.30); EST Glomerular Filtration Rate 76 mL/min (>60); Est Glom Filt Rate - Afr Amer 91 mL/min (>60); Estimated Creatinine Clearance 72.35 ml/min; Globulin 2.6 g/dL (2.2-4.2); Glucose 86 mg/dL (74-106); Potassium 3.2 mmol/L (3.5-5.1); Protein, Total 5.2 g/dL (6.4-8.2); Sodium Level 139 mmol/L (136-145)
[2019-02-22 09:02] LABS: Lactic Acid 1.8 mmol/L (0.4-2.0)
[2019-02-22] MEDS: 0.9% NaCl IVPB Med Flush (250 mL) 15 ML IV (09:34)
--- NOTE | 2019-02-22 10:17 | NURSING ---
lengthy disc w/pt's , son and dtr re pt condition, treatment, orders including code status. son is very angry/tearful re pts decision to be DNRCC-A. He states his grandmother here in ICU this January. much reassurance given. family back to see pt.
[2019-02-22] MEDS: Lactated Ringers 1,000 ML 175 ML IV ×3 (10:40→21:43)
[2019-02-22] MEDS: Hydrocortisone Sod Succinate 100 MG/2 ML Vial 50 MG IV ×2 (11:33→17:29)
--- NOTE | 2019-02-22 12:51 | CASEMGMT ---
RN CM Readmission Note Previous Admission: 02/14-02/16/19 Diagnosis: Cholecystectomy DC Disposition: Home. See DC F/U Phone call for details.Pt had made attempts to see Dr. Scanlon, but appt not available. Pt had returned to ER with c/o pain. Current Admission Presentation: Cholangitis Intro role of CM and purpose of RN CM assessment. Demographics, PCP and Pharmacy verified. PCP: Dr. Ahuja Specialists: Dr. Scanlon Preferred Pharmacy: [facility] Insurance: [facility] Prescription Benefit: yes Patient DC goals: Home DC PLAN: anticipate home on discharge.Catherine JACKSONN RN ACM
--- NOTE | 2019-02-22 12:55 | CHAPLAIN ---
Type of Pastoral Visit _x__ Initial Visit ___ Follow-up Visit ___ On-call Visit ___ General Patient Visit ___ Spiritual Assessment ___ Family Conference ___ Bereavement ___ Rapid Response ___ Code Blue ___ Other (describe below) Pastoral Care Referral From ___ Patient _x__ Family _x__ Nurse ___ Physician ___ Guest Experience Representative ___ [phone] Directory Assistance Operator ___ Other (describe below) Sacrament/Intervention ___ Active listening ___ Anointing ___ Jewish ___ Bereavement ___ Communion ___ Eulalia exploration ___ ___ Life review ___ Prayer ___ Reconciliation ___ Sacrament of Sick ___ Supportive presence ___ Wedding _x__ Other (describe below) Pastoral Comments spouse is in room; patient is sleeping; offered support to spouse who gave information about patient; it was stated that other family members were in the waiting area; upon looking for them they were not there;
[2019-02-22] MEDS: Albuterol 2.5 MG/3 ML VIAL.NEB. INHALATION ×2 (13:51→18:50)
[2019-02-22] MEDS: Heparin Injection (Vial) 5,000 UNIT/ML VIAL 5000 UNIT SC ×2 (14:10→21:47)
[2019-02-22 14:14] LABS: Pathologist Review Reviewed
--- NOTE | 2019-02-22 23:02 | CT_ITS ---
HISTORY: POST OP ABDOMEN PAIN AND BRUISING, CHOLECYSTECTOMY 1 WEEK AGO, ELEVATED WBC HX:CHF,HLD,HEP C,IA,CIRRHOSIS,KIDNEY STONES,NON HODGKINS LYMPHOMASURGERY:APPENDECTOMY,LT HIP ADDITIONAL HISTORY: None provided. TECHNIQUE: CT images were obtained of the abdomen and pelvis with 100 ml of Isovue 300 IV contrast. Enteric contrast was given. A radiation dose optimization technique was used for this scan. Number of images including paperwork: 420 COMPARISON: 04/30/2018 FINDINGS: LOWER THORAX: No consolidation or pleural effusion. LIVER: Segment 4 cyst with calcification appears similar. Prominent lateral segment left lobe and caudate lobe. GALLBLADDER: Cholecystectomy. Mild stranding and trace fluid are seen in the gallbladder fossa without distinct localized fluid collection. BILE DUCTS: Mild intrahepatic biliary dilatation. Mildly prominent enhancement of the extrahepatic bile ducts with small amount of adjacent fluid and stranding. SPLEEN: Unremarkable. PANCREAS: Unremarkable. ADRENAL GLANDS: Unremarkable. KIDNEYS/URETERS: Unremarkable. BOWEL: No bowel obstruction. No significant bowel wall thickening. No localized inflammation. Moderate amount of colonic stool. Minimal colonic diverticulosis. APPENDIX: No evidence of appendicitis. FREE FLUID: No significant free fluid. FREE AIR: None. LYMPH NODES: No pathologic appearing adenopathy. PERITONEUM, RETROPERITONEUM AND MESENTERY: Otherwise unremarkable. VASCULATURE: Atherosclerotic calcification. PELVIS: Unremarkable bladder. ABDOMINAL WALL: Unremarkable. OSSEOUS AND SOFT TISSUE STRUCTURES: No acute skeletal findings. CT/Abdomen/Pelvis WITH Contrast IMPRESSION: Findings consistent with recent cholecystectomy. Stranding and fluid in the gallbladder fossa and tracking along the common duct are nonspecific but could indicate the presence of cholangitis. Correlation with clinical findings is needed. Additional findings above. Individualized dose optimization techniques were used for this CT. at 0127 Reported and signed by: Olivia Caro MD Electronically Signed: Olivia Caro MD at 1:27 EDT Tel , Service support ,
[2019-02-23] VITALS (30 sets, daily range): BP systolic 109–167; BP diastolic 71–99; PULSE 95–128; RESP 15–43; TEMP 35.6–38.4; O2SAT 92–98
[2019-02-23] MEDS: Hydrocortisone Sod Succinate 100 MG/2 ML Vial 50 MG IV ×4 (00:22→17:53)
[2019-02-23] MEDS: Albuterol 2.5 MG/3 ML VIAL.NEB. INHALATION ×3 (01:30→19:23)
[2019-02-23] MEDS: Lactated Ringers 1,000 ML 175 ML IV ×4 (03:36→21:44)
[2019-02-23] MEDS: Heparin Injection (Vial) 5,000 UNIT/ML VIAL 5000 UNIT SC ×3 (05:03→21:58)
[2019-02-23 05:14] LABS: Absolute Lymphocyte Count 0.94 X10^3/uL (0.83-4.51); Basophil# 0.05 X10^3/uL; Basophil% 0.2 % (0-1); Eosinophil# 0.05 X10^3/uL; Eosinophils% 0.2 % (0-5); Hematocrit 38.7 % (40-54); Hemoglobin 12.8 g/dL (13.0-16.5); Lymphocyte # 0.94 X10^3/ul (4.0); Lymphocyte % 3.5 % (19-41); Mean Corp Hgb Conc 33.1 g/dL (32-36); Mean Corpuscular Hgb 32.2 pg (27.0-32.0); Mean Corpuscular Volume 97.5 fL (80-94); Monocyte# 0.48 X10^3/uL; Monocyte% 1.8 % (0-10); NRBC Flagged by Analyzer 0 % (0-5); Neutrophil # 24.96 X10^3/uL (2.7-7.7); Neutrophil % 92.3 % (47-70); POSITIVE DIFFERENTIAL YES; POSITIVE MORPHOLOGY YES; Platelet Count 144 K/mm3 (150-450); RBC Distribution Width CV 14.5 % (11.6-14.6); Red Blood Count 3.97 M/mm3 (4.6-6.2)
[2019-02-23 05:38] LABS: Differential Indicated SCAN CRITERIA MET
[2019-02-23 05:48] LABS: ALB/GLOB Ratio 0.7 RATIO (0.9-2.4); AST(SGOT) 32 U/L (15-37); Alanine Aminotransfer ALT/SGPT 41 U/L (16-61); Albumin, Serum 1.9 g/dL (3.2-5.0); Alkaline Phosphatase 71 U/L (45-117); Anion Gap 5 (5-15); BUN 15 mg/dL (7-18); BUN/Creat Ratio 17.9 RATIO (10-20); Calcium,Total 8.1 mg/dL (8.5-10.1); Chloride 109 mmol/L (98-107); Creatinine, Serum 0.84 mg/dL (0.70-1.30); EST Glomerular Filtration Rate 102 mL/min (>60); Est Glom Filt Rate - Afr Amer 124 mL/min (>60); Estimated Creatinine Clearance 93.89 ml/min; Globulin 2.6 g/dL (2.2-4.2); Glucose 102 mg/dL (74-106); Magnesium 1.6 mg/dL (1.6-2.6); Phosphorus 3.2 mg/dL (2.5-4.9); Potassium 3.8 mmol/L (3.5-5.1); Protein, Total 4.5 g/dL (6.4-8.2); Sodium Level 143 mmol/L (136-145)
[2019-02-23 06:06] LABS: Differential Comment SCANNED
--- NOTE | 2019-02-23 07:16 | PCM.PN.INT ---
Subjective: Patient did okay overnight. Nursing believes patient is much more appropriate today than he was yesterday. Patient is continuing to report suprapubic to left lower quadrant pain. Patient is not reporting any nausea or vomiting. Patient's fever has slightly improved. Objective: CT abdomen was relatively unremarkable. No abscess was reported,. Patient did have postsurgical changes. General: - - RASS -1. Interacting somewhat appropriately. Still little slow to respond. Obese. HEENT: Atraumatic, PERRLA, EOMI, Normocephalic, - - No scleral icterus or injection noted. Oral: Moist Mucosa, No Gingival or Mucosal Lesions/ Ulcerations Neck: Supple, No JVD, No Nodes, Trachea Midline Lungs: Clear to auscultation, Normal air movement, No rhonchi, No wheeze, No rales Cardiovascular: Normal S1, Normal S2, No murmurs, No rub noted, No Gallop, Tachycardic Abdomen: Bowel Sounds Present, Soft, Distended - Slightly, Tender - Palpation in the left lower quadrant and suprapubic. Some voluntary guarding, but no rebound tenderness Extremities: No clubbing, No cyanosis, No edema Skin: No rashes, No breakdown Musculoskeletal: No Tenderness to Palpation of Joints or Extremities Lymphatic: No Cervical, Supraclavicular, or Inguinal Adenopathy Neurological: Cranial nerves II-XII grossly intact, Neuro grossly intact, Motor Exam 5/5 strength throughout Psych/Mental Status: Flat Affect Vital Signs Temp Pulse Resp BP Pulse Ox 38.0 C H 118 H 23 H 131/84 H 98 02/23/19 06:00 02/23/19 06:00 02/23/19 06:00 02/23/19 06:00 02/23/19 06:00 Oxygen Flow Rate (L/min) 2 Oxygen Delivery Method Nasal Cannula Weight: 85.9 kg Body Mass Index (BMI) 29.9 Intake and Output for Last 24 Hours 02/21/19 02/22/19 02/23/19 23:59 23:59 23:59 Intake Total 500 / 500 6060.72 / 6060.72 1063.80 / 1063.80 Output Total 650 / 1650 1350 / 1350 Balance 500 / 500 5410.72 / 4410.72 -286.20 / -286.20 Labs (Last 48 Hours) 02/21/19 02/21/19 02/21/19 23:05 23:05 23:05 WBC 36.9 H* RBC 4.66 Hgb 15.2 Hct 45.7 MCV 98.1 H MCH 32.6 H MCHC 33.3 RDW Std Deviation 50.2 H RDW Coeff of Re 13.8 Plt Count 336 MPV 8.6 Immature Gran % (Auto) 1.200 H Neut % (Auto) 66.3 Lymph % (Auto) 26.1 [place] % (Auto) 6.1 Eos % (Auto) 0.1 Baso % (Auto) 0.2 Absolute Neuts (auto) 24.5 H Absolute Lymphs (auto) 9.62 H Nucleated RBC % 0 Differential Comment SCANNED Diff Path Review Reviewed PT INR Sodium 140 Potassium 3.6 Chloride 107 Carbon Dioxide 29.0 Anion Gap 4 L BUN 16 Creatinine 1.07 Estim Creat Clear Calc 73.70 Est GFR (MDRD) Af Amer 93 Est GFR (MDRD) Non-Af 77 BUN/Creatinine Ratio 15.0 Glucose 116 H Lactic Acid Calcium 8.7 Phosphorus Magnesium Total Bilirubin 0.60 Direct Bilirubin 0.18 AST 18 ALT 68 H Alkaline Phosphatase 77 Total Protein 5.9 L Albumin 3.0 L Globulin 2.9 Albumin/Globulin Ratio Lipase 53 L Urine Color Urine Clarity Urine pH Ur Specific [place] Urine Protein Urine Glucose (UA) Urine Ketones Urine Occult Blood Urine Nitrite Urine Bilirubin Urine Urobilinogen Ur Leukocyte Esterase Urine RBC Urine WBC Ur Squamous Epith Cells Amorphous Sediment Urine Bacteria Urine Mucus Urine Opiates Screen Urine Methadone Screen Ur Barbiturates Screen Ur Phencyclidine Scrn Ur Amphetamines Screen U Methamphetamin-MDMA U Benzodiazepines Scrn [place] Urine Cocaine Screen U Cannabinoids Screen Ur Drug Screen Comment POC Glucose 02/21/19 02/22/19 02/22/19 23:05 00:50 00:58 WBC RBC Hgb Hct MCV MCH MCHC RDW Std Deviation RDW Coeff of Re Plt Count MPV Immature Gran % (Auto) Neut % (Auto) Lymph % (Auto) [place] % (Auto) Eos % (Auto) Baso % (Auto) Absolute Neuts (auto) Absolute Lymphs (auto) Nucleated RBC % Differential Comment Diff Path Review PT INR Sodium Potassium Chloride Carbon Dioxide Anion Gap BUN Creatinine Estim Creat Clear Calc Est GFR (MDRD) Af Amer Est GFR (MDRD) Non-Af BUN/Creatinine Ratio Glucose Lactic Acid 1.4 Calcium Phosphorus Magnesium Total Bilirubin Direct Bilirubin AST ALT Alkaline Phosphatase Total Protein Albumin Globulin Albumin/Globulin Ratio Lipase Urine Color Yellow Urine Clarity Sl. Cloudy Urine pH 7.0 Ur Specific [place] 1.010 Urine Protein Negative Urine Glucose (UA) Normal Urine Ketones Negative Urine Occult Blood Negative Urine Nitrite Negative Urine Bilirubin Negative Urine Urobilinogen Normal Ur Leukocyte Esterase Negative Urine RBC 0 SEEN Urine WBC 0 SEEN Ur Squamous Epith Cells 0-5 SEEN Amorphous Sediment 2+ Urine Bacteria RARE Urine Mucus 0 SEEN Urine Opiates Screen Urine Methadone Screen Ur Barbiturates Screen Ur Phencyclidine Scrn Ur Amphetamines Screen U Methamphetamin-MDMA U Benzodiazepines Scrn [place] 0.40 L Urine Cocaine Screen U Cannabinoids Screen Ur Drug Screen Comment POC Glucose 02/22/19 02/22/19 02/22/19 00:58 05:48 06:27 WBC 12.3 H RBC 3.80 L Hgb 12.1 L Hct 36.6 L MCV 96.3 H MCH 31.8 MCHC 33.1 RDW Std Deviation 57.8 H RDW Coeff of Re 16.5 H Plt Count 119 L MPV 10.0 Immature Gran % (Auto) 0.500 Neut % (Auto) 84.6 H Lymph % (Auto) 10.4 L [place] % (Auto) 4.2 Eos % (Auto) 0.2 Baso % (Auto) 0.1 Absolute Neuts (auto) 10.4 H Absolute Lymphs (auto) 1.28 Nucleated RBC % 0 Differential Comment SCANNED Diff Path Review PT INR Sodium Potassium Chloride Carbon Dioxide Anion Gap BUN Creatinine Estim Creat Clear Calc Est GFR (MDRD) Af Amer Est GFR (MDRD) Non-Af BUN/Creatinine Ratio Glucose Lactic Acid Calcium Phosphorus Magnesium Total Bilirubin Direct Bilirubin AST ALT Alkaline Phosphatase Total Protein Albumin Globulin Albumin/Globulin Ratio Lipase Urine Color Urine Clarity Urine pH Ur Specific [place] Urine Protein Urine Glucose (UA) Urine Ketones Urine Occult Blood Urine Nitrite Urine Bilirubin Urine Urobilinogen Ur Leukocyte Esterase Urine RBC Urine WBC Ur Squamous Epith Cells Amorphous Sediment Urine Bacteria Urine Mucus Urine Opiates Screen POSITIVE H Urine Methadone Screen NEGATIVE Ur Barbiturates Screen NEGATIVE Ur Phencyclidine Scrn NEGATIVE Ur Amphetamines Screen NEGATIVE U Methamphetamin-MDMA NEGATIVE U Benzodiazepines Scrn NEGATIVE [place] Urine Cocaine Screen NEGATIVE U Cannabinoids Screen NEGATIVE Ur Drug Screen Comment POC Glucose 125 H 02/22/19 02/22/19 02/22/19 08:20 08:30 08:30 WBC RBC Hgb Hct MCV MCH MCHC RDW Std Deviation RDW Coeff of Re Plt Count MPV Immature Gran % (Auto) Neut % (Auto) Lymph % (Auto) [place] % (Auto) Eos % (Auto) Baso % (Auto) Absolute Neuts (auto) Absolute Lymphs (auto) Nucleated RBC % Differential Comment Diff Path Review PT 12.3 INR 0.9 Sodium 139 Potassium 3.2 L Chloride 104 Carbon Dioxide 31.0 Anion Gap 4 L BUN 14 Creatinine 1.09 Estim Creat Clear Calc 72.35 Est GFR (MDRD) Af Amer 91 Est GFR (MDRD) Non-Af 76 BUN/Creatinine Ratio 12.8 Glucose 86 Lactic Acid 1.8 Calcium 8.4 L Phosphorus Magnesium Total Bilirubin 0.90 Direct Bilirubin AST 15 ALT 53 Alkaline Phosphatase 84 Total Protein 5.2 L Albumin 2.6 L Globulin 2.6 Albumin/Globulin Ratio 1.0 Lipase Urine Color Urine Clarity Urine pH Ur Specific [place] Urine Protein Urine Glucose (UA) Urine Ketones Urine Occult Blood Urine Nitrite Urine Bilirubin Urine Urobilinogen Ur Leukocyte Esterase Urine RBC Urine WBC Ur Squamous Epith Cells Amorphous Sediment Urine Bacteria Urine Mucus Urine Opiates Screen Urine Methadone Screen Ur Barbiturates Screen Ur Phencyclidine Scrn Ur Amphetamines Screen U Methamphetamin-MDMA U Benzodiazepines Scrn [place] Urine Cocaine Screen U Cannabinoids Screen Ur Drug Screen Comment POC Glucose 02/23/19 02/23/19 04:45 04:45 WBC 27.0 H RBC 3.97 L Hgb 12.8 L Hct 38.7 L MCV 97.5 H MCH 32.2 H MCHC 33.1 RDW Std Deviation 53.0 H RDW Coeff of Re 14.5 Plt Count 144 L MPV 9.0 Immature Gran % (Auto) 2.000 H Neut % (Auto) 92.3 H Lymph % (Auto) 3.5 L [place] % (Auto) 1.8 Eos % (Auto) 0.2 Baso % (Auto) 0.2 Absolute Neuts (auto) 25.0 H Absolute Lymphs (auto) 0.94 Nucleated RBC % 0 Differential Comment SCANNED Diff Path Review PT INR Sodium 143 Potassium 3.8 Chloride 109 H Carbon Dioxide 29.0 Anion Gap 5 BUN 15 Creatinine 0.84 Estim Creat Clear Calc 93.89 Est GFR (MDRD) Af Amer 124 Est GFR (MDRD) Non-Af 102 BUN/Creatinine Ratio 17.9 Glucose 102 Lactic Acid Calcium 8.1 L Phosphorus 3.2 Magnesium 1.6 Total Bilirubin 1.10 H Direct Bilirubin AST 32 ALT 41 Alkaline Phosphatase 71 Total Protein 4.5 L Albumin 1.9 L Globulin 2.6 Albumin/Globulin Ratio 0.7 L Lipase Urine Color Urine Clarity Urine pH Ur Specific [place] Urine Protein Urine Glucose (UA) Urine Ketones Urine Occult Blood Urine Nitrite Urine Bilirubin Urine Urobilinogen Ur Leukocyte Esterase Urine RBC Urine WBC Ur Squamous Epith Cells Amorphous Sediment Urine Bacteria Urine Mucus Urine Opiates Screen Urine Methadone Screen Ur Barbiturates Screen Ur Phencyclidine Scrn Ur Amphetamines Screen U Methamphetamin-MDMA U Benzodiazepines Scrn [place] Urine Cocaine Screen U Cannabinoids Screen Ur Drug Screen Comment POC Glucose Clinical Impression(s) from Imaging Studies Chest X-Ray 02/22/19 08:11 IMPRESSION: Atelectasis and/or infiltrate in the lingular segment of the left upper lobe. Electronically Signed: Davis Honeycutt, at 9:43 EDT , Service support , Medical Necessity - Tobacco Use Smoking Status: Current every day smoker Tobacco Use: Cigarettes Assessment/Plan All Active Problems (Last Reviewed 02/22/19 @ 02:51 by Renato Hutson MD) Cholangitis (Acute) Sepsis (Acute) Leukocytosis (Acute) Intractable abdominal pain (Acute) Cocaine abuse (Resolved) Reaction, drug, adverse (Resolved) RECOMMENDATIONS: 1. Aggressive IV fluid resuscitation. 2. Initiation of vasopressor support, if needed. 3. Continue stress dose steroids and meropenem 4. Delirium protocol 5. Await additional recommendations from general surgery. IMPRESSIONS: 1. Sepsis with concerns for intra-abdominal source of infection/suspected relative adrenal insufficiency Patient has had significant fevers throughout his hospitalization. This appears to be improving somewhat. Patient is on broad-spectrum antibiotic therapy. There are no plans for exploratory laparotomy given his CODE STATUS at this time. Patient had a CT scan of the abdomen which was relatively unremarkable on my review. Await surgical opinion. Patient does have some increase in leukocytosis, but this may be secondary to stress dose steroids. 2. Tobacco dependency Continue bronchodilators as ordered. Nicotine replacement therapy can be utilized while admitted to the hospital. 3. Rheumatoid arthritis with chronic immunosuppression Stress dose steroids have been initiated in light of the patient's chronic prednisone use. No pressors have been required at this time. Await culture results. 4. History of Hodgkin's lymphoma/chronic hepatitis C/posttraumatic stress disorder/bipolar disorder/CODE STATUS Complicates care, management, recovery and prognosis. The patient's lymphoma is currently in remission per report. Patient is currently n.p.o. would defer to surgery on initiation of p.o. diet. The patient's CODE STATUS was discussed with both himself and his by Dr. Wells. Both were in agreement to DNR CCA without intubation. Code Visit Inpatient E&M: 28395 Subs Hosp L3
[2019-02-23] MEDS: LITHIUM CARBONATE 300 MG TABLET.ER PO (09:39)
[2019-02-23] MEDS: CHLORHEXIDINE GLUC 2% CLOTH 1 EACH TOWELETTE TOPICAL (09:39)
[2019-02-23] MEDS: Morphine 2 MG/ML Syringe IV ×4 (10:18→21:52)
[2019-02-23] MEDS: 0.9% NaCl Peripheral Flush Adult/Peds IV ×3 (10:19→21:58)
--- NOTE | 2019-02-23 12:01 | NM_ITS ---
CLINICAL: 53-year-old male with history of recent cholecystectomy with postoperative pain and suspected bile leak. RADIONUCLIDE HEPATOBILIARY SCINTIGRAPHY COMPARISON: CT of the abdomen-pelvis report 02/22/2019 FINDINGS: Following the intravenous administration of 6.0 mCi of 99m Tc Mebrofenin, hepatobiliary images reveal: 1. Relatively prompt and homogeneous radiopharmaceutical concentration is noted by a normal sized liver. No parenchymal defects are identified. 2. Gallbladder activity is not identified during 30 minutes of sequential imaging commensurate with known history of prior cholecystectomy. 3. Small intestinal tract is observed at 30-45 minutes post radiopharmaceutical administration. 4. Washout of the radiopharmaceutical by the hepatic parenchyma appears qualitatively normal. 5. There is a subtle focus of tracer concentration noted in the region of the gallbladder fossa initiating at 45 minutes post tracer injection unchanged on the 60 minute acquisition. NM/Hepatobilliary Imaging IMPRESSION: 1. The subtle focus of tracer distribution identified in the region of the gallbladder fossa may represent the presence of a small bile leak. Delayed imaging acquisition may be of benefit for further evaluation. Electronically Signed: Erick Bowles DO at 15:07 EDT Tel , Service support ,
--- NOTE | 2019-02-23 13:30 | PN_ITS ---
Patient Problems: Active and Suspected Problems (Last Reviewed 02/22/19 @ 02:51 by Renato Hutson MD) Cholangitis (Acute) Sepsis (Acute) Intractable abdominal pain (Acute) Subjective: Patient was seen and examined. He is still lethargic but easily arousable. Still remains febrile. No other acute events overnight Objective: Physical exam: General: Lethargic, easily arousable, not pale or jaundiced HEENT: Atraumatic, PERRLA, EOMI, Normocephalic Oral: Moist Mucosa Neck: Supple Lungs: Normal air movement, Diminished - at the lung bases, on 2L oxygen Cardiovascular: Regular rate, Regular Rhythm, Normal S1, Normal S2, No murmurs Abdomen: Bowel Sounds Present, Soft, Non-Distended, No Hepato-splenomegaly, - - Unable to assess tenderness Extremities: No edema Skin: Multiple tattoes on body Musculoskeletal: No Tenderness to Palpation of Joints or Extremities Lymphatic: No Cervical, Supraclavicular, or Inguinal Adenopathy Neurological: Cranial nerves II-XII grossly intact Psych/Mental Status: Normal Affect, Appropriate Vitals/I&O's: Vital Signs Temp Pulse Resp BP Pulse Ox 100.2 F H 123 H 28 H 138/88 H 93 02/23/19 10:00 02/23/19 10:00 02/23/19 10:00 02/23/19 10:00 02/23/19 10:00 Oxygen Flow Rate (L/min) 1 Oxygen Delivery Method Room Air Weight: 85.9 kg Body Mass Index (BMI) 29.9 Intake and Output for Last 24 Hours 02/21/19 02/22/19 02/23/19 23:59 23:59 23:59 Intake Total 500 / 500 6060.72 / 6060.72 1825.33 / 1825.33 Output Total 650 / 1650 1850 / 1850 Balance 500 / 500 5410.72 / 4410.72 -24.67 / -24.67 Laboratory Results 02/21/19 23:05: Diff Path Review Reviewed 02/23/19 04:45: WBC 27.0 H, RBC 3.97 L, Hgb 12.8 L, Hct 38.7 L, MCV 97.5 H, MCH 32.2 H, MCHC 33.1, RDW Std Deviation 53.0 H, RDW Coeff of Re 14.5, Plt Count 144 L, MPV 9.0, Immature Gran % (Auto) 2.000 H, Neut % (Auto) 92.3 H, Lymph % (Auto) 3.5 L, [place] % (Auto) 1.8, Eos % (Auto) 0.2, Baso % (Auto) 0.2, Absolute Neuts (auto) 25.0 H, Absolute Lymphs (auto) 0.94, Nucleated RBC % 0, Diff erential Comment SCANNED 02/23/19 04:45: Sodium 143, Potassium 3.8, Chloride 109 H, Carbon Dioxide 29.0, Anion Gap 5, BUN 15, Creatinine 0.84, Estim Creat Clear Calc 93.89, Est GFR (MDRD) Af Amer 124, Est GFR (MDRD) Non-Af 102, BUN/Creatinine Ratio 17.9, Glucose 102, Calcium 8.1 L, Phosphorus 3.2, Magnesium 1.6, Total Bilirubin 1.10 H, AST 32, ALT 41, Alkaline Phosphatase 71, Total Protein 4.5 L, Albumin 1.9 L, Globulin 2.6, Albumin/Globulin Ratio 0.7 L Current Medications Acetaminophen (Tylenol) 650 mg RECTAL Q4H PRN PRN PRN Reason: FEVER Last Admin: 02/22/19 17:57 Dose: 650 mg Documented by: Albuterol Sulfate (Ventolin Aerosols) 2.5 mg INHALATION Q2H PRN PRN PRN Reason: sob/wheezing Albuterol Sulfate (Ventolin Aerosols) 2.5 mg INHALATION Q6HWA.RT [facility] Last Admin: 02/23/19 13:00 Dose: Not Given Documented by: Chlorhexidine Gluconate () 1 each TOPICAL DAILY [facility] Last Admin: 02/23/19 09:39 Dose: 1 each Documented by: Dextrose (D50w Syringe) 0 gm IV X1 PRN; Protocol PRN Reason: Hypoglycemia Glucagon () 1 mg IM .X1 PRN PRN Reason: Hypoglycemia Heparin Sodium (Porcine) (Heparin Na) 5,000 unit SC Q8 [facility] Last Admin: 02/23/19 05:03 Dose: 5,000 unit Documented by: Hydrocortisone Sodium Succinate (Solu-Cortef) 50 mg IV Q6 [facility] Last Admin: 02/23/19 05:03 Dose: 50 mg Documented by: Sodium Chloride () 250 mls @ 15 mls/hr IV .[id number] PRN PRN Reason: SALINE FLUSH Last Infusion: 02/23/19 05:34 Dose: 0 mls/hr Documented by: Sodium Chloride () 250 mls @ 15 mls/hr IV .[id number] PRN PRN Reason: SALINE FLUSH Meropenem 1 gm/ Sodium (Chloride) 120 mls @ 33 mls/hr IV Q8 [facility] Last Infusion: 02/23/19 08:47 Dose: Infused Documented by: Lactated Ringer's () 1,000 mls @ 175 mls/hr IV .[id number] MARISSA Last Admin: 02/23/19 09:39 Dose: 175 mls/hr Documented by: Levothyroxine Sodium (Synthroid) 112 mcg PO DAILY@0600 [facility] Last Admin: 02/23/19 05:03 Dose: Not Given Documented by: [place] Carbonate ([place] Carbonate) 300 mg PO DAILY [facility] Last Admin: 02/23/19 09:39 Dose: 300 mg Documented by: Montelukast Sodium (Singulair) 10 mg PO QHS [facility] Last Admin: 02/22/19 21:47 Dose: Not Given Documented by: Morphine Sulfate () 2 mg IV Q3H PRN PRN PRN Reason: Severe pain (7-10/10) Last Admin: 02/23/19 10:18 Dose: 2 mg Documented by: Nicotine (Nicoderm Cq (Pbkc)) 21 mg TRANSDERM. DAILY [facility] Last Admin: 02/23/19 09:41 Dose: 21 mg Documented by: Ondansetron HCl (Zofran) 4 mg IV Q8H PRN PRN PRN Reason: NAUSEA/VOMITING Last Admin: 02/22/19 03:07 Dose: 4 mg Documented by: Senna/Docusate Sodium (Senokot-S, Stephanie-Colace) 2 tablet PO BID PRN PRN PRN Reason: Constipation Sodium Chloride () 10 - 40 ml IV UD PRN PRN Reason: SALINE FLUSH Last Admin: 02/23/19 10:19 Dose: 10 ml Documented by: Sodium Chloride () 10 - 40 ml IV UD PRN PRN Reason: SALINE FLUSH Medical Necessity - Tobacco Use Smoking Status: Current every day smoker Tobacco Use: Cigarettes Assessment/Plan All Active Problems (Last Reviewed 02/22/19 @ 02:51 by Renato Hutson MD) Cholangitis (Acute) Sepsis (Acute) Leukocytosis (Acute) Intractable abdominal pain (Acute) Cocaine abuse (Resolved) Reaction, drug, adverse (Resolved) 33-year-old male with past medical history of non-Hodgkin's lymphoma, chronic hep C, not on treatment, hypothyroidism, history of polysubstance abuse who recently had cholecystectomy a week ago presented on 02/21/19 with worsening abdominal discomfort. Patient's management now has been that of possible cholangitis. 1. Sepsis secondary to probable cholangitis, present on admission, seen on CT scan of the abdomen and pelvis, remains still critically unwell Febrile, tachycardic but stable BP though, History of laparoscopic cholecystectomy with cholangiograms done on 02/14/19 White cell count is worse, liver function tests are unremarkable General surgery consulted, on IV meropenem, will trend blood work 2. Intractable abdominal pain, likely secondary to the above, will continue to monitor Continue with PRN morphine 3. Hypokalemia, replaced 4. Non-Hodgkin's lymphoma, ff with oncology 5. Chronic Hep C, h/o IVDU/tonic pain syndrome 6. Hypothyroidism, on levothyroxine 7. Rest of his past medical history including posttraumatic stress disorder, rheumatoid arthritis with chronic immunosuppression, bipolar and neuropathy - all stable 8. DVT PPx- Heparin SC Code Visit Inpatient E&M: 75636 Subs Hosp L3
--- NOTE | 2019-02-23 15:22 | CASEMGMT ---
RN CM Note. Call rec'd from MELO Nomaintenance department manager with [employer] stating she is available if dc needs arise. . Cathreine FREDERICK RN ACM
--- NOTE | 2019-02-23 17:12 | PCM.PN.SRG ---
Patient Problems: Active and Suspected Problems (Last Reviewed 02/22/19 @ 02:51 by Renato Hutson MD) Cholangitis (Acute) Sepsis (Acute) Intractable abdominal pain (Acute) Subjective: more alert today, complaining of right upper quadrant and right lateral abdominal discomfort. - Physical Exam General: Oriented x3, Cooperative Lungs: Clear to auscultation, Normal air movement Cardiovascular: Regular rate, Regular Rhythm Abdomen: Bowel Sounds Present, Soft, Non Tender Vital Signs Temp Pulse Resp BP Pulse Ox 99.9 F H 128 H 20 H 139/80 H 94 02/23/19 14:00 02/23/19 15:25 02/23/19 15:00 02/23/19 15:00 02/23/19 15:00 Oxygen Flow Rate (L/min) 1 Oxygen Delivery Method Room Air Weight: 85.9 kg Body Mass Index (BMI) 29.9 Intake and Output for Last 24 Hours 02/21/19 02/22/19 02/23/19 23:59 23:59 23:59 Intake Total 500 / 500 6060.72 / 6060.72 2838.06 / 2838.06 Output Total 650 / 1650 1850 / 1850 Balance 500 / 500 5410.72 / 4410.72 988.06 / 988.06 Laboratory Tests Past 24 Hrs 02/23/19 02/23/19 04:45 04:45 WBC 27.0 H RBC 3.97 L Hgb 12.8 L Hct 38.7 L MCV 97.5 H MCH 32.2 H MCHC 33.1 RDW Std Deviation 53.0 H RDW Coeff of Re 14.5 Plt Count 144 L MPV 9.0 Immature Gran % (Auto) 2.000 H Neut % (Auto) 92.3 H Lymph % (Auto) 3.5 L [place] % (Auto) 1.8 Eos % (Auto) 0.2 Baso % (Auto) 0.2 Absolute Neuts (auto) 25.0 H Absolute Lymphs (auto) 0.94 Nucleated RBC % 0 Differential Comment SCANNED Sodium 143 Potassium 3.8 Chloride 109 H Carbon Dioxide 29.0 Anion Gap 5 BUN 15 Creatinine 0.84 Estim Creat Clear Calc 93.89 Est GFR (MDRD) Af Amer 124 Est GFR (MDRD) Non-Af 102 BUN/Creatinine Ratio 17.9 Glucose 102 Calcium 8.1 L Phosphorus 3.2 Magnesium 1.6 Total Bilirubin 1.10 H AST 32 ALT 41 Alkaline Phosphatase 71 Total Protein 4.5 L Albumin 1.9 L Globulin 2.6 Albumin/Globulin Ratio 0.7 L Medical Necessity - Tobacco Use Smoking Status: Current every day smoker Tobacco Use: Cigarettes Assessment/Plan All Active Problems (Last Reviewed 02/22/19 @ 02:51 by Renato Hutson MD) Cholangitis (Acute) Sepsis (Acute) Leukocytosis (Acute) Intractable abdominal pain (Acute) Cocaine abuse (Resolved) Reaction, drug, adverse (Resolved) sepsis of unknown origin, questionable ascending cholangitis versus complication from laparoscopic cholecystectomy. The patient is a 53 year old M who presented last week with crescendoing symptoms now with a history of significant right upper quadrant pain. He also has untreated hepatitis C area he was brought tapping suite and underwent semiurgent laparoscopic cholecystectomy with intraoperative cholangiogram on February 14, 2019. Patient has had a persistently elevated white blood cell count and was found to have an elevated white blood cell count and mildly elevated bilirubin on postoperative day 1. on postoperative day 2 the patient's white blood cell count decreased to 15 which is within the range of his recent white blood cell count the past yearand his bilirubin and transaminases were normal. The patient's abdominal pain had improved and he was able to be discharged home on February 16 he returned the night of February 21 and was admitted with a diagnosis of right-sided abdominal pain and elevated white blood cell count. CT scan demonstrated some postsurgical changes in the gallbladder fossa and on the morning of the , he had increasing confusion and hypotension. He was transferred to the intensive care unit and started on meropenem. ERCP was considered yesterday, but the patient declined due to the possibility of prolonged intubation following the procedure. the patient was looking clinically improved this morning. a HIDA scan was obtained which demonstrated contrast within the bowel but was felt on delayed films demonstrated a small leak. I spoke with Dr. Vazquez and Dr. Schaeffer, We will continue antibiotics for now and consider ERCP as his clinical status improves.
[2019-02-23] MEDS: 0.9% NaCl IVPB Med Flush (250 mL) 15 ML IV (20:26)
[2019-02-23] MEDS: Montelukast 10 MG Tablet PO (22:06)
[2019-02-24] VITALS (18 sets, daily range): BP systolic 116–147; BP diastolic 65–93; PULSE 55–100; RESP 14–24; TEMP 36.1–36.8; O2SAT 93–98; BMI 30.1
[2019-02-24] MEDS: Morphine 2 MG/ML Syringe IV (02:21)
[2019-02-24] MEDS: 0.9% NaCl Peripheral Flush Adult/Peds IV ×7 (02:22→21:57)
[2019-02-24] MEDS: Lactated Ringers 1,000 ML 175 ML IV ×3 (03:31→17:25)
[2019-02-24] MEDS: Hydrocortisone Sod Succinate 100 MG/2 ML Vial 50 MG IV ×4 (05:55→18:10)
--- NOTE | 2019-02-24 06:01 | NURSING ---
patients weding ring removed due to swelling in left hand. one silver band with gold inlay placed in denture cup and locked in med emergency response coordinator patients room, will send home with patients
[2019-02-24 06:31] LABS: Absolute Lymphocyte Count 1.02 X10^3/uL (0.83-4.51); Absolute Neutrophil Count 23.1 X10^3/uL (2.0-7.7); Basophil# 0.03 X10^3/uL; Basophil% 0.1 % (0-1); Eosinophil# 0.04 X10^3/uL; Eosinophils% 0.2 % (0-5); Hematocrit 34.7 % (40-54); Hemoglobin 11.5 g/dL (13.0-16.5); Lymphocyte # 1.02 X10^3/ul (4.0); Lymphocyte % 4.1 % (19-41); Mean Corp Hgb Conc 33.1 g/dL (32-36); Mean Corpuscular Hgb 32.3 pg (27.0-32.0); Mean Corpuscular Volume 97.5 fL (80-94); Mean Platelet Vol. 9.6 fl (6.2-12.0); Monocyte# 0.34 X10^3/uL; Monocyte% 1.4 % (0-10); NRBC Flagged by Analyzer 0 % (0-5); Neutrophil # 23.09 X10^3/uL (2.7-7.7); Neutrophil % 93.2 % (47-70); POSITIVE DIFFERENTIAL YES; Platelet Count 73 K/mm3 (150-450); RBC Distribution Width SD 50.4 fl (35.1-43.9); Red Blood Count 3.56 M/mm3 (4.6-6.2); White Blood Count 24.8 K/mm3 (4.4-11.0)
[2019-02-24 06:35] LABS: Differential Indicated SCAN CRITERIA MET
[2019-02-24 06:41] LABS: ALB/GLOB Ratio 0.5 RATIO (0.9-2.4); AST(SGOT) 25 U/L (15-37); Alanine Aminotransfer ALT/SGPT 34 U/L (16-61); Albumin, Serum 1.6 g/dL (3.2-5.0); Alkaline Phosphatase 66 U/L (45-117); Anion Gap 5 (5-15); BUN 18 mg/dL (7-18); BUN/Creat Ratio 27.4 RATIO (10-20); Calcium,Total 8.2 mg/dL (8.5-10.1); Chloride 111 mmol/L (98-107); Creatinine, Serum 0.66 mg/dL (0.70-1.30); EST Glomerular Filtration Rate 135 mL/min (>60); Est Glom Filt Rate - Afr Amer 164 mL/min (>60); Estimated Creatinine Clearance 119.49 ml/min; Glucose 98 mg/dL (74-106); Protein, Total 4.6 g/dL (6.4-8.2); Sodium Level 145 mmol/L (136-145)
--- NOTE | 2019-02-24 07:18 | PCM.PN.HOSP ---
Patient Problems: Active and Suspected Problems (Last Reviewed 02/22/19 @ 02:51 by Renato Hutson MD) Cholangitis (Acute) Sepsis (Acute) Intractable abdominal pain (Acute) Vitals/I&O's: Vital Signs Temp Pulse Resp BP Pulse Ox 96.9 F L 71 22 H 138/73 H 96 02/24/19 00:00 02/24/19 06:00 02/24/19 06:00 02/24/19 06:00 02/24/19 06:00 Oxygen Flow Rate (L/min) 1 Oxygen Delivery Method Room Air Weight: 85.9 kg Body Mass Index (BMI) 29.9 Intake and Output for Last 24 Hours 02/22/19 02/23/19 02/24/19 23:59 23:59 23:59 Intake Total 6060.72 / 6060.72 4112.16 / 4137.16 1202.5 / 1202.5 Output Total 650 / 1650 2000 / 2000 600 / 600 Balance 5410.72 / 4410.72 2112.16 / 2137.16 602.5 / 602.5 Laboratory Results 02/24/19 06:15: WBC 24.8 H, RBC 3.56 L, Hgb 11.5 L, Hct 34.7 L, MCV 97.5 H, MCH 32.3 H, MCHC 33.1, RDW Std Deviation 50.4 H, RDW Coeff of Re 14.0, Plt Count 73 L, MPV 9.6, Immature Gran % (Auto) 1.000 H, Neut % (Auto) 93.2 H, Lymph % (Auto) 4.1 L, [place] % (Auto) 1.4, Eos % (Auto) 0.2, Baso % (Auto) 0.1, Absolute Neuts (auto) 23.1 H, Absolute Lymphs (auto) 1.02, Nucleated RBC % 0 02/24/19 06:15: Sodium 145, Potassium 4.0, Chloride 111 H, Carbon Dioxide 29.0, Anion Gap 5, BUN 18, Creatinine 0.66 L, Estim Creat Clear Calc 119.49, Est GFR (MDRD) Af Amer 164, Est GFR (MDRD) Non-Af 135, BUN/Creatinine Ratio 27.4 H, Glucose 98, Calcium 8.2 L, Total Bilirubin 1.00, AST 25, ALT 34, Alkaline Phosphatase 66, Total Protein 4.6 L, Albumin 1.6 L, Globulin 3.0, Albumin/Globulin Ratio 0.5 L Current Medications Acetaminophen (Tylenol) 650 mg RECTAL Q4H PRN PRN PRN Reason: FEVER Last Admin: 02/22/19 17:57 Dose: 650 mg Documented by: Albuterol Sulfate (Ventolin Aerosols) 2.5 mg INHALATION Q2H PRN PRN PRN Reason: sob/wheezing Albuterol Sulfate (Ventolin Aerosols) 2.5 mg INHALATION Q6HWA.RT [facility] Last Admin: 02/23/19 19:23 Dose: 2.5 mg Documented by: Chlorhexidine Gluconate () 1 each TOPICAL DAILY [facility] Last Admin: 02/23/19 09:39 Dose: 1 each Documented by: Dextrose (D50w Syringe) 0 gm IV X1 PRN; Protocol PRN Reason: Hypoglycemia Glucagon () 1 mg IM .X1 PRN PRN Reason: Hypoglycemia Heparin Sodium (Porcine) (Heparin Na) 5,000 unit SC Q8 [facility] Last Admin: 02/23/19 21:58 Dose: 5,000 unit Documented by: Hydrocortisone Sodium Succinate (Solu-Cortef) 50 mg IV Q6 [facility] Last Admin: 02/24/19 05:55 Dose: 50 mg Documented by: Hydromorphone HCl (Dilaudid Inj) 1 mg IV X1 ONE Stop: 02/24/19 06:58 Sodium Chloride () 250 mls @ 15 mls/hr IV .[id number] PRN PRN Reason: SALINE FLUSH Last Infusion: 02/24/19 05:56 Dose: 0 mls/hr Documented by: Sodium Chloride () 250 mls @ 15 mls/hr IV .[id number] PRN PRN Reason: SALINE FLUSH Meropenem 1 gm/ Sodium (Chloride) 120 mls @ 33 mls/hr IV Q8 [facility] Last Admin: 02/24/19 05:56 Dose: 33 mls/hr Documented by: Lactated Ringer's () 1,000 mls @ 175 mls/hr IV .[id number] [facility] Last Admin: 02/24/19 03:31 Dose: 175 mls/hr Documented by: Levothyroxine Sodium (Synthroid) 112 mcg PO DAILY@0600 [facility] Last Admin: 02/23/19 05:03 Dose: Not Given Documented by: Sarah Ann Carbonate (Sarah Ann Carbonate) 300 mg PO DAILY [facility] Last Admin: 02/23/19 09:39 Dose: 300 mg Documented by: Montelukast Sodium (Singulair) 10 mg PO QHS [facility] Last Admin: 02/23/19 22:06 Dose: 10 mg Documented by: Morphine Sulfate () 2 mg IV Q3H PRN PRN PRN Reason: Severe pain (7-10/10) Last Admin: 02/24/19 02:21 Dose: 2 mg Documented by: Nicotine (Nicoderm Cq (Pbkc)) 21 mg TRANSDERM. DAILY [facility] Last Admin: 02/23/19 09:41 Dose: 21 mg Documented by: Non-Formulary Medication (Butrans) 10 mcg TOPICAL QWEEK [facility] Ondansetron HCl (Zofran) 4 mg IV Q8H PRN PRN PRN Reason: NAUSEA/VOMITING Last Admin: 02/22/19 03:07 Dose: 4 mg Documented by: Senna/Docusate Sodium (Senokot-S, Stephanie-Colace) 2 tablet PO BID PRN PRN PRN Reason: Constipation Sodium Chloride () 10 - 40 ml IV UD PRN PRN Reason: SALINE FLUSH Last Admin: 02/24/19 06:15 Dose: 10 ml Documented by: Sodium Chloride () 10 - 40 ml IV UD PRN PRN Reason: SALINE FLUSH Medical Necessity - Tobacco Use Smoking Status: Current every day smoker Tobacco Use: Cigarettes Assessment/Plan All Active Problems (Last Reviewed 02/22/19 @ 02:51 by Renato Hutson MD) Cholangitis (Acute) Sepsis (Acute) Leukocytosis (Acute) Intractable abdominal pain (Acute) Cocaine abuse (Resolved) Reaction, drug, adverse (Resolved) 33-year-old male with past medical history of non-Hodgkin's lymphoma, chronic hep C, not on treatment, hypothyroidism, history of polysubstance abuse who recently had cholecystectomy a week ago presented on 02/21/19 with worsening abdominal discomfort. Patient's management now has been that of possible cholangitis. 1. Sepsis secondary to cholangitis/bile leak, present on admission, seen on CT scan of the abdomen and pelvis, Confirmed with HIDA scan which showed bile leak Blood cultures showed no growth Fairly improved, not febrile, leucocytosis is 4.8, from 27.0; patient is also on IV hydrocortisone General surgery consulted, History of laparoscopic cholecystectomy with cholangiograms done on 02/14/19 ERCP planned, will continue on IV meropenem 2. Hypokalemia, replaced 3. Non-Hodgkin's lymphoma, ff with oncology 4. Chronic Hep C, h/o IVDU/tonic pain syndrome 5. Hypothyroidism, on levothyroxine 6. Rest of his past medical history including posttraumatic stress disorder, rheumatoid arthritis with chronic immunosuppression, bipolar and neuropathy - all stable 7. Nicotine dependence, on replacement 8. DVT PPx- Heparin SC 9. Disposition: Transfer to PCU Code Visit Inpatient E&M: 98172 Subs Hosp L2
[2019-02-24] MEDS: Levothyroxine 112 MCG Tablet PO (07:22)
[2019-02-24] MEDS: Heparin Injection (Vial) 5,000 UNIT/ML VIAL 5000 UNIT SC ×2 (07:23→14:29)
[2019-02-24] MEDS: HYDROmorphone 1 MG/ML Syringe IV (07:29)
--- NOTE | 2019-02-24 07:33 | PN.SURG_ITS ---
Patient Problems: Active and Suspected Problems (Last Reviewed 02/22/19 @ 02:51 by Renato Hutson MD) Cholangitis (Acute) Sepsis (Acute) Intractable abdominal pain (Acute) Subjective: Patient reports he is having right upper quadrant pain. - Physical Exam General: Alert, Oriented x3 Neck: No JVD Lungs: Normal air movement Cardiovascular: Regular rate, Regular Rhythm Abdomen: Soft, Non-Distended, Tender Psych/Mental Status: Normal Affect Vital Signs Temp Pulse Resp BP Pulse Ox 96.9 F L 71 22 H 138/73 H 96 02/24/19 00:00 02/24/19 06:00 02/24/19 06:00 02/24/19 06:00 02/24/19 06:00 Oxygen Flow Rate (L/min) 1 Oxygen Delivery Method Room Air Weight: 189 lb 6.033 oz Body Mass Index (BMI) 29.9 Intake and Output for Last 24 Hours 02/22/19 02/23/19 02/24/19 23:59 23:59 23:59 Intake Total 6060.72 / 6060.72 4112.16 / 4137.16 1202.5 / 1202.5 Output Total 650 / 1650 1999 / 1999 600 / 600 Balance 5410.72 / 4410.72 2112.16 / 2137.16 602.5 / 602.5 Laboratory Tests Past 24 Hrs 02/24/19 02/24/19 06:15 06:15 WBC 24.8 H RBC 3.56 L Hgb 11.5 L Hct 34.7 L MCV 97.5 H MCH 32.3 H MCHC 33.1 RDW Std Deviation 50.4 H RDW Coeff of Re 14.0 Plt Count 73 L MPV 9.6 Immature Gran % (Auto) 1.000 H Neut % (Auto) 93.2 H Lymph % (Auto) 4.1 L [place] % (Auto) 1.4 Eos % (Auto) 0.2 Baso % (Auto) 0.1 Absolute Neuts (auto) 23.1 H Absolute Lymphs (auto) 1.02 Nucleated RBC % 0 Sodium 145 Potassium 4.0 Chloride 111 H Carbon Dioxide 29.0 Anion Gap 5 BUN 18 Creatinine 0.66 L Estim Creat Clear Calc 119.49 Est GFR (MDRD) Af Amer 164 Est GFR (MDRD) Non-Af 135 BUN/Creatinine Ratio 27.4 H Glucose 98 Calcium 8.2 L Total Bilirubin 1.00 AST 25 ALT 34 Alkaline Phosphatase 66 Total Protein 4.6 L Albumin 1.6 L Globulin 3.0 Albumin/Globulin Ratio 0.5 L Clinical Impression(s) from Imaging Studies Hepatobiliary Scan Nuclear Medicine 02/23/19 12:01 IMPRESSION: 1. The subtle focus of tracer distribution identified in the region of the gallbladder fossa may represent the presence of a small bile leak. Delayed imaging acquisition may be of benefit for further evaluation. Electronically Signed: Erick Bowles DO at 15:07 EDT Tel , Service support , ADDENDUM: 02/23/19 1604 Medical Necessity - Tobacco Use Smoking Status: Current every day smoker Tobacco Use: Cigarettes Assessment/Plan All Active Problems (Last Reviewed 02/22/19 @ 02:51 by Renato Hutson MD) Cholangitis (Acute) Sepsis (Acute) Leukocytosis (Acute) Intractable abdominal pain (Acute) Cocaine abuse (Resolved) Reaction, drug, adverse (Resolved) 53-year-old male with bile leak 1. The patient had a HIDA scan yesterday to ensure that his common bile duct was draining. On that HIDA scan the delayed films showed a bile leak in the gallbladder fossa. Recommend ERCP and stent placement. 2. I discussed ERCP with the patient in detail. I discussed the risks including but not limited to bleeding, infection, perforation of the bile duct or bowel, pancreatitis. The patient understands and is willing to be intubated for the procedure and is willing to proceed. I will plan for ERCP tomorrow morning. Zachary Schaeffer MD Pager: [facility] [address] [place] [address], [address] [place] [address] Office:
[2019-02-24] MEDS: Albuterol 2.5 MG/3 ML VIAL.NEB. INHALATION ×2 (07:39→23:25)
--- NOTE | 2019-02-24 07:51 | PCM.PN.INT ---
Subjective: Patient did okay overnight. Patient continues to report abdominal pain despite morphine therapy. Patient is alert and oriented this morning and states that it spoke with his son and would like to change his CODE STATUS back to full. Patient is open to ERCP. General: Alert, Oriented x3, Cooperative, - - Mild distress. Obese. Appears older than stated age. HEENT: Atraumatic, PERRLA, EOMI, Normocephalic, - - Slight scleral injection without icterus Oral: Moist Mucosa, No Gingival or Mucosal Lesions/ Ulcerations Neck: Supple, No JVD, No Nodes, Trachea Midline Lungs: No rhonchi, No wheeze, No rales, Diminished, - - Fair effort. Some splinting with deep inhalation Cardiovascular: Regular rate, Regular Rhythm, Normal S1, Normal S2, No murmurs, No rub noted, No Gallop Abdomen: Bowel Sounds Present, Soft, Distended - Slightly, Tender - Guarding, but no rebound tenderness Extremities: No clubbing, No cyanosis, Edema - Trace Skin: No rashes, No breakdown Musculoskeletal: No Tenderness to Palpation of Joints or Extremities Lymphatic: No Cervical, Supraclavicular, or Inguinal Adenopathy Neurological: Cranial nerves II-XII grossly intact, Neuro grossly intact, Motor Exam 5/5 strength throughout Psych/Mental Status: Alert and oriented to time, place, person, mood and affect Vital Signs Temp Pulse Resp BP Pulse Ox 36.1 C L 71 22 H 138/73 H 96 02/24/19 00:00 02/24/19 06:00 02/24/19 06:00 02/24/19 06:00 02/24/19 06:00 Oxygen Flow Rate (L/min) 1 Oxygen Delivery Method Room Air Weight: 85.9 kg Body Mass Index (BMI) 29.9 Intake and Output for Last 24 Hours 02/22/19 02/23/19 02/24/19 23:59 23:59 23:59 Intake Total 6060.72 / 6060.72 4112.16 / 4137.16 1928.75 / 1928.75 Output Total 650 / 1650 1999 / 1999 600 / 600 Balance 5410.72 / 4410.72 2112.16 / 2137.16 1328.75 / 1328.75 Labs (Last 48 Hours) 02/21/19 02/22/19 02/22/19 23:05 08:20 08:30 WBC RBC Hgb Hct MCV MCH MCHC RDW Std Deviation RDW Coeff of Re Plt Count MPV Immature Gran % (Auto) Neut % (Auto) Lymph % (Auto) [place] % (Auto) Eos % (Auto) Baso % (Auto) Absolute Neuts (auto) Absolute Lymphs (auto) Nucleated RBC % Differential Comment Diff Path Review Reviewed PT INR Sodium 139 Potassium 3.2 L Chloride 104 Carbon Dioxide 31.0 Anion Gap 4 L BUN 14 Creatinine 1.09 Estim Creat Clear Calc 72.35 Est GFR (MDRD) Af Amer 91 Est GFR (MDRD) Non-Af 76 BUN/Creatinine Ratio 12.8 Glucose 86 Lactic Acid 1.8 Calcium 8.4 L Phosphorus Magnesium Total Bilirubin 0.90 AST 15 ALT 53 Alkaline Phosphatase 84 Total Protein 5.2 L Albumin 2.6 L Globulin 2.6 Albumin/Globulin Ratio 1.0 02/22/19 02/23/19 02/23/19 08:30 04:45 04:45 WBC 27.0 H RBC 3.97 L Hgb 12.8 L Hct 38.7 L MCV 97.5 H MCH 32.2 H MCHC 33.1 RDW Std Deviation 53.0 H RDW Coeff of Re 14.5 Plt Count 144 L MPV 9.0 Immature Gran % (Auto) 2.000 H Neut % (Auto) 92.3 H Lymph % (Auto) 3.5 L [place] % (Auto) 1.8 Eos % (Auto) 0.2 Baso % (Auto) 0.2 Absolute Neuts (auto) 25.0 H Absolute Lymphs (auto) 0.94 Nucleated RBC % 0 Differential Comment SCANNED Diff Path Review PT 12.3 INR 0.9 Sodium 143 Potassium 3.8 Chloride 109 H Carbon Dioxide 29.0 Anion Gap 5 BUN 15 Creatinine 0.84 Estim Creat Clear Calc 93.89 Est GFR (MDRD) Af Amer 124 Est GFR (MDRD) Non-Af 102 BUN/Creatinine Ratio 17.9 Glucose 102 Lactic Acid Calcium 8.1 L Phosphorus 3.2 Magnesium 1.6 Total Bilirubin 1.10 H AST 32 ALT 41 Alkaline Phosphatase 71 Total Protein 4.5 L Albumin 1.9 L Globulin 2.6 Albumin/Globulin Ratio 0.7 L 02/24/19 02/24/19 06:15 06:15 WBC 24.8 H RBC 3.56 L Hgb 11.5 L Hct 34.7 L MCV 97.5 H MCH 32.3 H MCHC 33.1 RDW Std Deviation 50.4 H RDW Coeff of Re 14.0 Plt Count 73 L MPV 9.6 Immature Gran % (Auto) 1.000 H Neut % (Auto) 93.2 H Lymph % (Auto) 4.1 L [place] % (Auto) 1.4 Eos % (Auto) 0.2 Baso % (Auto) 0.1 Absolute Neuts (auto) 23.1 H Absolute Lymphs (auto) 1.02 Nucleated RBC % 0 Differential Comment Diff Path Review PT INR Sodium 145 Potassium 4.0 Chloride 111 H Carbon Dioxide 29.0 Anion Gap 5 BUN 18 Creatinine 0.66 L Estim Creat Clear Calc 119.49 Est GFR (MDRD) Af Amer 164 Est GFR (MDRD) Non-Af 135 BUN/Creatinine Ratio 27.4 H Glucose 98 Lactic Acid Calcium 8.2 L Phosphorus Magnesium Total Bilirubin 1.00 AST 25 ALT 34 Alkaline Phosphatase 66 Total Protein 4.6 L Albumin 1.6 L Globulin 3.0 Albumin/Globulin Ratio 0.5 L Clinical Impression(s) from Imaging Studies Hepatobiliary Scan Nuclear Medicine 02/23/19 12:01 IMPRESSION: 1. The subtle focus of tracer distribution identified in the region of the gallbladder fossa may represent the presence of a small bile leak. Delayed imaging acquisition may be of benefit for further evaluation. Electronically Signed: Erick Bowles DO at 15:07 EDT Tel , Service support , ADDENDUM: 02/23/19 1604 Medical Necessity - Tobacco Use Smoking Status: Current every day smoker Tobacco Use: Cigarettes Assessment/Plan All Active Problems (Last Reviewed 02/22/19 @ 02:51 by Renato Hutson MD) Cholangitis (Acute) Sepsis (Acute) Leukocytosis (Acute) Intractable abdominal pain (Acute) Cocaine abuse (Resolved) Reaction, drug, adverse (Resolved) RECOMMENDATIONS: 1. Continue IV fluids while n.p.o. 2. Plan for ERCP tomorrow 3. Continue stress dose steroids and meropenem. Potentially wean stress dose steroids after ERCP 4. Continue delirium protocol 5. Await additional recommendations from general surgery. 6. Okay to leave the intensive care unit from my perspective IMPRESSIONS: 1. Sepsis with concerns for intra-abdominal source of infection/suspected relative adrenal insufficiency Patient has had significant fevers throughout his hospitalization. This appears to be improving slowly. Patient is on broad-spectrum antibiotic therapy. HIDA scan yesterday was suggestive of possible biliary leak. Patient has agreed to an ERCP and surgery is aware. We will continue antibiotics and stress dose steroids until findings can be confirmed. 2. Tobacco dependency Continue bronchodilators as ordered. Nicotine replacement therapy can be utilized while admitted to the hospital. 3. Rheumatoid arthritis with chronic immunosuppression Stress dose steroids have been initiated in light of the patient's chronic prednisone use. No pressors have been required at this time. Await culture results. 4. History of Hodgkin's lymphoma/chronic hepatitis C/posttraumatic stress disorder/bipolar disorder/CODE STATUS Complicates care, management, recovery and prognosis. The patient's lymphoma is currently in remission per report. Patient is currently n.p.o. would defer to surgery on initiation of p.o. diet. Discussed with patient this morning. Patient will be made a full code. Code Visit [facility] E[facility]M: [facility]
[2019-02-24] MEDS: oxyCODONE 5 MG Tablet PO ×4 (10:13→22:33)
[2019-02-24] MEDS: LITHIUM CARBONATE 300 MG TABLET.ER PO (10:19)
--- NOTE | 2019-02-24 10:50 | PN.SURG_ITS ---
Patient Problems: Active and Suspected Problems (Last Reviewed 02/22/19 @ 02:51 by Renato Hutson MD) Cholangitis (Acute) Sepsis (Acute) Intractable abdominal pain (Acute) Subjective: feeling better, more alert, is willing to undergo ERCP currently - Physical Exam General: Alert, Oriented x3, Cooperative Lungs: Clear to auscultation, Normal air movement Cardiovascular: Regular rate, No murmurs Abdomen: Bowel Sounds Present, Soft, Tender - right sided abdomen Vital Signs Temp Pulse Resp BP Pulse Ox 98.2 F 80 14 132/65 H 98 02/24/19 10:05 02/24/19 10:05 02/24/19 10:05 02/24/19 10:05 02/24/19 10:05 Oxygen Flow Rate (L/min) 1 Oxygen Delivery Method Room Air Weight: 85.9 kg Body Mass Index (BMI) 29.9 Intake and Output for Last 24 Hours 02/22/19 02/23/19 02/24/19 23:59 23:59 23:59 Intake Total 6060.72 / 6060.72 4112.16 / 4137.16 2202.50 / 2202.50 Output Total 650 / 1650 2000 / 1999 600 / 600 Balance 5410.72 / 4410.72 2112.16 / 2137.16 1602.50 / 1602.50 Microbiology Past 72 Hours 02/22/19 08:20 Blood Culture - Preliminary Blood Culture (Wb) - Other No growth in 48 hours. 02/22/19 02:00 Blood Culture - Preliminary Blood Culture (Wb) - Anticubital Left No growth in 48 hours. 02/22/19 01:50 Blood Culture - Preliminary Blood Culture (Wb) - Anticubital Right No growth in 48 hours. Laboratory Tests Past 24 Hrs 02/24/19 02/24/19 06:15 06:15 WBC 24.8 H RBC 3.56 L Hgb 11.5 L Hct 34.7 L MCV 97.5 H MCH 32.3 H MCHC 33.1 RDW Std Deviation 50.4 H RDW Coeff of Re 14.0 Plt Count 73 L MPV 9.6 Immature Gran % (Auto) 1.000 H Neut % (Auto) 93.2 H Lymph % (Auto) 4.1 L [place] % (Auto) 1.4 Eos % (Auto) 0.2 Baso % (Auto) 0.1 Absolute Neuts (auto) 23.1 H Absolute Lymphs (auto) 1.02 Nucleated RBC % 0 Sodium 145 Potassium 4.0 Chloride 111 H Carbon Dioxide 29.0 Anion Gap 5 BUN 18 Creatinine 0.66 L Estim Creat Clear Calc 119.49 Est GFR (MDRD) Af Amer 164 Est GFR (MDRD) Non-Af 135 BUN/Creatinine Ratio 27.4 H Glucose 98 Calcium 8.2 L Total Bilirubin 1.00 AST 25 ALT 34 Alkaline Phosphatase 66 Total Protein 4.6 L Albumin 1.6 L Globulin 3.0 Albumin/Globulin Ratio 0.5 L Medical Necessity - Tobacco Use Smoking Status: Current every day smoker Tobacco Use: Cigarettes Assessment/Plan All Active Problems (Last Reviewed 02/22/19 @ 02:51 by Renato Hutson MD) Cholangitis (Acute) Sepsis (Acute) Leukocytosis (Acute) Intractable abdominal pain (Acute) Cocaine abuse (Resolved) Reaction, drug, adverse (Resolved) sepsis of unknown origin, questionable ascending cholangitis versus complication from laparoscopic cholecystectomy. The patient is a 53 year old M who presented last week with crescendoing symptoms now with a history of significant right upper quadrant pain. He also has untreated hepatitis C area he was brought tapping suite and underwent semiurgent laparoscopic cholecystectomy with intraoperative cholangiogram on February 14, 2019. Patient has had a persistently elevated white blood cell count and was found to have an elevated white blood cell count and mildly elevated bilirubin on postoperative day 1. on postoperative day 2 the patient's white blood cell count decreased to 15 which is within the range of his recent white blood cell count the past yearand his bilirubin and transaminases were normal. The patient's abdominal pain had improved and he was able to be discharged home on February 16 he returned the night of February 21 and was admitted with a diagnosis of right-sided abdominal pain and elevated white blood cell count. CT scan demonstrated some postsurgical changes in the gallbladder fossa and on the morning of the , he had increasing confusion and hypotension. He was transferred to the intensive care unit and started on meropenem. ERCP was considered yesterday, but the patient declined due to the possibility of prolonged intubation following the procedure. the patient was looking clinically improved this morning. a HIDA scan was obtained which demonstrated contrast within the bowel but was felt on delayed films demonstrated a small leak. I spoke with Dr. Vazquez and Dr. Schaeffer, We will continue antibiotics for now and plan for ERCP as his clinical status improves.
--- NOTE | 2019-02-24 10:52 | NURSING ---
report called to KENNEL HELPERMELO [place].
[2019-02-24] MEDS: BUPRENORPHINE 1 EACH PATCH.TDWK TD (11:03)
--- NOTE | 2019-02-24 11:07 | NURSING ---
after pts left the room, pt request conversation re code status. He wanted to make clear that he wishes to remain a full code have everything done me for the entirety of this admission unless he has been on the breathing machine for 6 months. verified per Kendra Prasad RN.
--- NOTE | 2019-02-24 11:20 | NURSING ---
to [facility] 119
[2019-02-24] MEDS: 0.9% NaCl IVPB Med Flush (250 mL) 15 ML IV (14:30)
[2019-02-24] MEDS: Montelukast 10 MG Tablet PO (21:54)
[2019-02-25] VITALS (24 sets, daily range): BP systolic 106–141; BP diastolic 60–81; PULSE 51–85; RESP 14–18; TEMP 36.1–36.9; O2SAT 91–97; BMI 30.1
[2019-02-25] MEDS: Hydrocortisone Sod Succinate 100 MG/2 ML Vial 50 MG IV ×4 (00:20→17:15)
[2019-02-25] MEDS: 0.9% NaCl Peripheral Flush Adult/Peds IV ×7 (00:21→23:25)
[2019-02-25] MEDS: oxyCODONE 5 MG Tablet PO ×3 (03:00→19:50)
[2019-02-25] MEDS: Lactated Ringers 1,000 ML 75 ML IV ×2 (03:37→10:59)
[2019-02-25] MEDS: Levothyroxine 112 MCG Tablet PO (05:27)
--- NOTE | 2019-02-25 05:55 | EKG12_ITS ---
Test Reason : AM EKG Blood Pressure : / mmHG Vent. Rate : 059 BPM Atrial Rate : 059 BPM P-R Int : 118 ms QRS Dur : 086 ms QT Int : 412 ms P-R-T Axes : -12 044 030 degrees QTc Int : 407 ms Sinus bradycardia Otherwise normal ECG Confirmed by BETY MOHAN, PETRONA ([id number]), assignment editor LYNN DEVRIES ([id number]) on 02/28/2019 11:00:26 AM Referred By: Renato Hutson Confirmed By:PETRONA ALBERT MD
[2019-02-25 06:05] LABS: Hematocrit 35.9 % (40-54); Hemoglobin 11.8 g/dL (13.0-16.5); Mean Corp Hgb Conc 32.9 g/dL (32-36); Mean Corpuscular Hgb 32.1 pg (27.0-32.0); Mean Corpuscular Volume 97.6 fL (80-94); Mean Platelet Vol. 10.3 fl (6.2-12.0); Platelet Count 62 K/mm3 (150-450); RBC Distribution Width CV 13.6 % (11.6-14.6); RBC Distribution Width SD 49.3 fl (35.1-43.9); Red Blood Count 3.68 M/mm3 (4.6-6.2); White Blood Count 21.7 K/mm3 (4.4-11.0)
--- NOTE | 2019-02-25 06:51 | PCM.PN.SRG ---
Patient Problems: Active and Suspected Problems (Last Reviewed 02/22/19 @ 02:51 by Renato Hutson MD) Cholangitis (Acute) Intractable abdominal pain (Acute) Subjective: nervous about ERCP - Physical Exam General: Alert, Oriented x3, Cooperative Lungs: Clear to auscultation, Normal air movement Cardiovascular: Regular rate, No murmurs Abdomen: Bowel Sounds Present, Soft, Tender - RUQ Vital Signs Temp Pulse Resp BP Pulse Ox 97.8 F 76 18 116/74 95 02/25/19 06:15 02/25/19 06:15 02/25/19 06:15 02/25/19 06:15 02/25/19 06:15 Oxygen Flow Rate (L/min) 1 Oxygen Delivery Method Room Air Weight: 88.9 kg Body Mass Index (BMI) 30.1 Intake and Output for Last 24 Hours 02/23/19 02/24/19 02/25/19 23:59 23:59 23:59 Intake Total 4112.16 / 4137.16 4121.55 / 4141.55 483.70 / 483.70 Output Total 1999 / 1999 600 / 600 Balance 2112.16 / 2137.16 3521.55 / 3541.55 483.70 / 483.70 Microbiology Past 72 Hours 02/22/19 08:20 Blood Culture - Preliminary Blood Culture (Wb) - Other No growth in 48 hours. 02/22/19 02:00 Blood Culture - Preliminary Blood Culture (Wb) - Anticubital Left No growth in 48 hours. 02/22/19 01:50 Blood Culture - Preliminary Blood Culture (Wb) - Anticubital Right No growth in 48 hours. Laboratory Tests Past 24 Hrs 02/25/19 02/25/19 05:18 05:18 WBC 21.7 H RBC 3.68 L Hgb 11.8 L Hct 35.9 L MCV 97.6 H MCH 32.1 H MCHC 32.9 RDW Std Deviation 49.3 H RDW Coeff of Re 13.6 Plt Count 62 L MPV 10.3 TSH Pending Medical Necessity - Tobacco Use Smoking Status: Current every day smoker Tobacco Use: Cigarettes Assessment/Plan All Active Problems (Last Reviewed 02/22/19 @ 02:51 by Renato Hutson MD) Cholangitis (Acute) Sepsis (Acute) Leukocytosis (Acute) Intractable abdominal pain (Acute) Cocaine abuse (Resolved) Reaction, drug, adverse (Resolved) sepsis of unknown origin, questionable ascending cholangitis versus complication from laparoscopic cholecystectomy. The patient is a 53 year old M who presented last week with crescendoing symptoms now with a history of significant right upper quadrant pain. He also has untreated hepatitis C area he was brought tapping suite and underwent semiurgent laparoscopic cholecystectomy with intraoperative cholangiogram on February 14, 2019. Patient has had a persistently elevated white blood cell count and was found to have an elevated white blood cell count and mildly elevated bilirubin on postoperative day 1. on postoperative day 2 the patient's white blood cell count decreased to 15 which is within the range of his recent white blood cell count the past yearand his bilirubin and transaminases were normal. The patient's abdominal pain had improved and he was able to be discharged home on February 16 he returned the night of February 21 and was admitted with a diagnosis of right-sided abdominal pain and elevated white blood cell count. CT scan demonstrated some postsurgical changes in the gallbladder fossa and on the morning of the , he had increasing confusion and hypotension. He was transferred to the intensive care unit and started on meropenem. ERCP was considered yesterday, but the patient declined due to the possibility of prolonged intubation following the procedure. the patient was looking clinically improved. a HIDA scan was obtained which demonstrated contrast within the bowel but was felt on delayed films demonstrated a small leak. For ERCP Today.
--- NOTE | 2019-02-25 07:24 | RAD_ITS ---
STUDY: ERCP REASON FOR EXAM: Male, 53 years old. ERCP for suspected bile leak, stent placement FLUOROSCOPY TIME (if supplied): (2:28) minutes/seconds TECHNIQUE: Endoscope placed by Dr. Schaeffer COMPARISON: None. FINDINGS: After placement of the endoscope, the ampulla of Vater was cannulized by Dr. Schaeffer, and contrast injected into the biliary tree in a retrograde manner. There is dilatation of the proximal common hepatic duct as well as the common hepatic duct. There appears to be a slight bile leak at the site of recent cholecystectomy with a cystic duct showing some extravasation. A biliary stent has been placed. RAD/ERCP Biliary Only IMPRESSION: Suspected bile leak from the cystic duct remnant after cholecystectomy Successful placement of a biliary stent Dilatation of the common hepatic duct as well as the left intrahepatic biliary tree Electronically Signed: Davis Honeycutt, at 12:33 EDT , Service support ,
--- NOTE | 2019-02-25 08:10 | PCM.PN.INT ---
Subjective: Patient transferred out of the intensive care unit yesterday. Patient reports subjective improvement in overall condition, but still having some abdominal pain. Patient is hungry and asking to eat. Patient is to have his ERCP this morning. No bleeding complications have been reported. Patient has been on room air overnight without difficulty. General: Alert, Oriented x3, Cooperative, No apparent distress, Well developed, Well nourished, - - Obese. Speaking in full sentences. HEENT: Atraumatic, PERRLA, EOMI, Normocephalic, - - No scleral icterus or injection noted Oral: Moist Mucosa, No Gingival or Mucosal Lesions/ Ulcerations Neck: Supple, No JVD, No Nodes, Trachea Midline Lungs: No rhonchi, No wheeze, No rales, Diminished Cardiovascular: Regular rate, Regular Rhythm, Normal S1, Normal S2, No murmurs, No rub noted, No Gallop Abdomen: Bowel Sounds Present, Soft, Non-Distended, Obese, Tender Extremities: No clubbing, No cyanosis, No edema, Capillary Refill Less than 3 Seconds Skin: No rashes, No breakdown Musculoskeletal: No Tenderness to Palpation of Joints or Extremities Lymphatic: No Cervical, Supraclavicular, or Inguinal Adenopathy Neurological: Cranial nerves II-XII grossly intact, Neuro grossly intact, Motor Exam 5/5 strength throughout Psych/Mental Status: Alert and oriented to time, place, person, mood and affect Vital Signs Temp Pulse Resp BP Pulse Ox 36.6 C 64 14 116/81 H 94 02/25/19 06:15 02/25/19 07:44 02/25/19 07:44 02/25/19 07:44 02/25/19 07:44 Oxygen Flow Rate (L/min) 1 Oxygen Delivery Method Room Air Weight: 88.9 kg Body Mass Index (BMI) 30.1 Intake and Output for Last 24 Hours 02/23/19 02/24/19 02/25/19 23:59 23:59 23:59 Intake Total 4112.16 / 4137.16 4121.55 / 4141.55 483.70 / 483.70 Output Total 1999 / 1999 600 / 600 Balance 2112.16 / 2137.16 3521.55 / 3541.55 483.70 / 483.70 Labs (Last 48 Hours) 02/24/19 02/24/19 02/25/19 06:15 06:15 05:18 WBC 24.8 H 21.7 H RBC 3.56 L 3.68 L Hgb 11.5 L 11.8 L Hct 34.7 L 35.9 L MCV 97.5 H 97.6 H MCH 32.3 H 32.1 H MCHC 33.1 32.9 RDW Std Deviation 50.4 H 49.3 H RDW Coeff of Re 14.0 13.6 Plt Count 73 L 62 L MPV 9.6 10.3 Immature Gran % (Auto) 1.000 H Neut % (Auto) 93.2 H Lymph % (Auto) 4.1 L Lassen % (Auto) 1.4 Eos % (Auto) 0.2 Baso % (Auto) 0.1 Absolute Neuts (auto) 23.1 H Absolute Lymphs (auto) 1.02 Nucleated RBC % 0 Sodium 145 Potassium 4.0 Chloride 111 H Carbon Dioxide 29.0 Anion Gap 5 BUN 18 Creatinine 0.66 L Estim Creat Clear Calc 119.49 Est GFR (MDRD) Af Amer 164 Est GFR (MDRD) Non-Af 135 BUN/Creatinine Ratio 27.4 H Glucose 98 Calcium 8.2 L Total Bilirubin 1.00 AST 25 ALT 34 Alkaline Phosphatase 66 Total Protein 4.6 L Albumin 1.6 L Globulin 3.0 Albumin/Globulin Ratio 0.5 L TSH 02/25/19 05:18 WBC RBC Hgb Hct MCV MCH MCHC RDW Std Deviation RDW Coeff of Re Plt Count MPV Immature Gran % (Auto) Neut % (Auto) Lymph % (Auto) Lassen % (Auto) Eos % (Auto) Baso % (Auto) Absolute Neuts (auto) Absolute Lymphs (auto) Nucleated RBC % Sodium Potassium Chloride Carbon Dioxide Anion Gap BUN Creatinine Estim Creat Clear Calc Est GFR (MDRD) Af Amer Est GFR (MDRD) Non-Af BUN/Creatinine Ratio Glucose Calcium Total Bilirubin AST ALT Alkaline Phosphatase Total Protein Albumin Globulin Albumin/Globulin Ratio TSH 5.50 H Microbiology 02/22/19 08:20 Blood Culture (Wb) - Other Blood Culture - Preliminary No growth in 48 hours. 02/22/19 02:00 Blood Culture (Wb) - Anticubital Left Blood Culture - Preliminary No growth in 48 hours. 02/22/19 01:50 Blood Culture (Wb) - Anticubital Right Blood Culture - Preliminary No growth in 48 hours. Medical Necessity - Tobacco Use Smoking Status: Current every day smoker Tobacco Use: Cigarettes Assessment/Plan All Active Problems (Last Reviewed 02/22/19 @ 02:51 by Renato Hutson MD) Cholangitis (Acute) Sepsis (Acute) Leukocytosis (Acute) Intractable abdominal pain (Acute) Cocaine abuse (Resolved) Reaction, drug, adverse (Resolved) RECOMMENDATIONS: 1. Initiation of p.o. diet per surgery 2. Await results of ERCP 3. Continue stress dose steroids and meropenem. Potentially discontinue stress dose steroids after ERCP, resume baseline steroids 4. Continue delirium protocol 5. Hemodynamically stable on room air. Will sign off from a critical care perspective IMPRESSIONS: 1. Sepsis with concerns for intra-abdominal source of infection/suspected relative adrenal insufficiency Patient has had significant fevers throughout his hospitalization. This appears to be improving slowly. Patient is on broad-spectrum antibiotic therapy. HIDA scan earlier in the hospitalization was suggestive of possible biliary leak. Patient has agreed to an ERCP and surgery is aware. Likely consider continuing antibiotics for 7 to 10 days. Patient can be discontinued from stress dose steroids following ERCP if tolerates. 2. Tobacco dependency Continue bronchodilators as ordered. Nicotine replacement therapy can be utilized while admitted to the hospital. 3. Rheumatoid arthritis with chronic immunosuppression Stress dose steroids have been initiated in light of the patient's chronic prednisone use. No pressors have been required at this time. Await culture results. Patient can be reinitiated on baseline immunosuppression after discontinuation of steroid therapy 4. History of Hodgkin's lymphoma/chronic hepatitis C/posttraumatic stress disorder/bipolar disorder/CODE STATUS Complicates care, management, recovery and prognosis. The patient's lymphoma is currently in remission per report. Patient is currently n.p.o. would defer to surgery on initiation of p.o. diet. Discussed with patient this morning. Patient will be made a full code. Code Visit Inpatient E&M: 63639 Subs Hosp L2
--- NOTE | 2019-02-25 08:58 | OP.ENDO_ITS ---
02/25/2019 Hue Ahuja [address] [phone] Re : ERCP procedure for Cody Acosta Dear Dr. Ahuja This procedure was performed on Monday, February 25, 2019. My impressions and recommendations are as follows: Impressions : - A bile leak was found. - A biliary sphincterotomy was performed. - The biliary tree was swept and nothing was found. - One plastic stent was placed into the common bile duct. Recommendations : My findings are described in the full procedure note, which is enclosed. If I can be of further assistance, please feel free to contact me at Doctor phone number(s): , Work: . Sincerely, Zachary Schaeffer MD 02/25/2019 8:58:03 AM This report has been signed electronically.
--- NOTE | 2019-02-25 10:48 | PN_ITS ---
Patient Problems: Active and Suspected Problems (Last Reviewed 02/22/19 @ 02:51 by Renato Hutson MD) Cholangitis (Acute) Intractable abdominal pain (Acute) Subjective: Patient was seen and examined. He was seen post ERCP. He complains of feeling hungry. Denies any fever or chills or shortness of breath. Right upper quadrant tenderness is improved. Vitals/I&O's: Vital Signs Temp Pulse Resp BP Pulse Ox 96.9 F L 64 16 119/74 94 02/25/19 09:25 02/25/19 09:25 02/25/19 09:25 02/25/19 09:25 02/25/19 09:25 Oxygen Flow Rate (L/min) 2 Oxygen Delivery Method Room Air Weight: 88.9 kg Body Mass Index (BMI) 30.1 Intake and Output for Last 24 Hours 02/23/19 02/24/19 02/25/19 23:59 23:59 23:59 Intake Total 4112.16 / 4137.16 4121.55 / 4141.55 603.70 / 603.70 Output Total 1999 / 1999 600 / 600 Balance 2112.16 / 2137.16 3521.55 / 3541.55 603.70 / 603.70 General: Alert, Oriented x3, Cooperative, No apparent distress, - - off oxygen, sitting in bed HEENT: Atraumatic, PERRLA, EOMI, Normocephalic Oral: Moist Mucosa Neck: Supple Lungs: Clear to auscultation, Normal air movement Cardiovascular: Regular rate, Regular Rhythm, Normal S1, Normal S2, No murmurs Abdomen: Bowel Sounds Present, Soft, Tender - mild RUQ tenderness without guarding or RBT Extremities: No edema Skin: - - Tattoes all over the skin Musculoskeletal: No Tenderness to Palpation of Joints or Extremities Lymphatic: No Cervical, Supraclavicular, or Inguinal Adenopathy Neurological: Cranial nerves II-XII grossly intact, Neuro grossly intact Psych/Mental Status: Normal Affect, Appropriate Microbiology Past 72 Hours 02/22/19 08:20 Blood Culture (Wb) - Other Blood Culture - Preliminary No growth in 48 hours. 02/22/19 02:00 Blood Culture (Wb) - Anticubital Left Blood Culture - Preliminary No growth in 48 hours. 02/22/19 01:50 Blood Culture (Wb) - Anticubital Right Blood Culture - Preliminary No growth in 48 hours. Laboratory Results 02/25/19 05:18: WBC 21.7 H, RBC 3.68 L, Hgb 11.8 L, Hct 35.9 L, MCV 97.6 H, MCH 32.1 H, MCHC 32.9, RDW Std Deviation 49.3 H, RDW Coeff of Re 13.6, Plt Count 62 L, MPV 10.3 02/25/19 05:18: TSH 5.50 H Current Medications Acetaminophen (Tylenol) 650 mg RECTAL Q4H PRN PRN PRN Reason: FEVER Last Admin: 02/22/19 17:57 Dose: 650 mg Documented by: Albuterol Sulfate (Ventolin Aerosols) 2.5 mg INHALATION Q2H PRN PRN PRN Reason: sob/wheezing Last Admin: 02/24/19 23:25 Dose: 2.5 mg Documented by: Dextrose (D50w Syringe) 0 gm IV X1 PRN; Protocol PRN Reason: Hypoglycemia Glucagon () 1 mg IM .X1 PRN PRN Reason: Hypoglycemia Heparin Sodium (Porcine) (Heparin Na) 5,000 unit SC Q8 COUNTS INCLUDE 234 BEDS AT THE [facility] Last Admin: 02/24/19 21:52 Dose: Not Given Documented by: Hydrocortisone Sodium Succinate (Solu-Cortef) 50 mg IV Q6 COUNTS INCLUDE 234 BEDS AT THE [facility] Last Admin: 02/25/19 05:27 Dose: 50 mg Documented by: Sodium Chloride () 250 mls @ 15 mls/hr IV .[id number] PRN PRN Reason: SALINE FLUSH Last Infusion: 02/25/19 05:29 Dose: 0 mls/hr Documented by: Meropenem 1 gm/ Sodium (Chloride) 120 mls @ 33 mls/hr IV Q8 COUNTS INCLUDE 234 BEDS AT THE [facility] Last Infusion: 02/25/19 09:09 Dose: Infused Documented by: Lactated Ringer's () 1,000 mls @ 75 mls/hr IV .[id number] COUNTS INCLUDE 234 BEDS AT THE [facility] Last Admin: 02/25/19 03:37 Dose: 75 mls/hr Documented by: Levothyroxine Sodium (Synthroid) 112 mcg PO DAILY@0600 COUNTS INCLUDE 234 BEDS AT THE [facility] Last Admin: 02/25/19 05:27 Dose: 112 mcg Documented by: [place] Carbonate ([place] Carbonate) 300 mg PO DAILY COUNTS INCLUDE 234 BEDS AT THE [facility] Last Admin: 02/24/19 10:19 Dose: 300 mg Documented by: Montelukast Sodium (Singulair) 10 mg PO QHS MARISSA Last Admin: 02/24/19 21:54 Dose: 10 mg Documented by: Nicotine (Nicoderm Cq (Pbkc)) 21 mg TRANSDERM. DAILY MARISSA Last Admin: 02/24/19 10:20 Dose: 21 mg Documented by: Ondansetron HCl (Zofran) 4 mg IV Q8H PRN PRN PRN Reason: NAUSEA/VOMITING Last Admin: 02/22/19 03:07 Dose: 4 mg Documented by: Oxycodone HCl (Oxyir) 5 mg PO Q4H PRN PRN PRN Reason: SEVERE PAIN (6-10/10) Last Admin: 02/25/19 03:00 Dose: 5 mg Documented by: Senna/Docusate Sodium (Senokot-S, Stephanie-Colace) 2 tablet PO BID PRN PRN PRN Reason: Constipation Sodium Chloride () 10 - 40 ml IV UD PRN PRN Reason: SALINE FLUSH Last Admin: 02/25/19 05:28 Dose: 10 ml Documented by: Medical Necessity - Tobacco Use Smoking Status: Current every day smoker Tobacco Use: Cigarettes Assessment/Plan All Active Problems (Last Reviewed 02/22/19 @ 02:51 by Renato Hutson MD) Cholangitis (Acute) Sepsis (Acute) Leukocytosis (Acute) Intractable abdominal pain (Acute) Cocaine abuse (Resolved) Reaction, drug, adverse (Resolved) Summary of care/Off service note: 33-year-old male with past medical history of non-Hodgkin's lymphoma, chronic hep C, not on treatment, hypothyroidism, history of polysubstance abuse who recently had cholecystectomy a week ago admitted with on 02/21/19 with worsening abdominal discomfort. Patient was transferred to ICU for aggressive management of cholangitis. General surgery was consulted. Patient initially refused ERCP over concerns of possible intubation. HIDA scan done was suggestive of bile leak. He agreed to ERCP and it was done this morning, 02/25/19. 1. Sepsis secondary to cholangitis/bile leak, present on admission, seen on CT scan of the abdomen and pelvis, Confirmed with HIDA scan which showed bile leak. Status post ERCP which confirmed bile leak. Biliary sphincterectomy was done, status post stenting to common bile duct. Blood cultures are negative WBC count improved to 21.7 from 24.8 Continue on IV meropenem, may de-escalate antibiotics from tomorrow 2. Hypokalemia, replaced 3. Non-Hodgkin's lymphoma, ff with oncology 4. Chronic Hep C, h/o IVDU/tonic pain syndrome 5. Hypothyroidism, on levothyroxine 6. Rest of his past medical history including posttraumatic stress disorder, rheumatoid arthritis with chronic immunosuppression, bipolar and neuropathy - all stable 7. Nicotine dependence, on replacement 8. DVT PPx- Heparin SC 9. Code status- Full code Code Visit Inpatient E&M: 31525 Subs Hosp L2
[2019-02-25] MEDS: LITHIUM CARBONATE 300 MG TABLET.ER PO (11:00)
[2019-02-25] MEDS: Heparin Injection (Vial) 5,000 UNIT/ML VIAL 5000 UNIT SC (14:03)
[2019-02-25] MEDS: Montelukast 10 MG Tablet PO (21:40)
[2019-02-25] MEDS: Senna/Docusate Sodium 1 Tablet 2 TABLET PO (21:40)
[2019-02-25] MEDS: 0.9% NaCl IVPB Med Flush (250 mL) 15 ML IV (21:46)
[2019-02-25] MEDS: Ketorolac 15 MG/ML Vial IV (23:25)
[2019-02-26] MEDS: Hydrocortisone Sod Succinate 100 MG/2 ML Vial 50 MG IV ×2 (00:35→05:56)
[2019-02-26] MEDS: 0.9% NaCl Peripheral Flush Adult/Peds IV ×2 (00:35→05:56)
[2019-02-26 00:45] VITALS: BP 125/85; PULSE 75; RESP 16; TEMP 36.7; O2SAT 94
[2019-02-26] MEDS: oxyCODONE 5 MG Tablet PO ×4 (00:46→14:14)
[2019-02-26 03:04] VITALS: PULSE 69
[2019-02-26 05:55] VITALS: BP 133/80; PULSE 61; RESP 18; TEMP 37.1; O2SAT 96
[2019-02-26] MEDS: Levothyroxine 112 MCG Tablet PO (05:56)
[2019-02-26 07:35] VITALS: O2SAT 92
--- NOTE | 2019-02-26 07:59 | PN.SURG_ITS ---
Patient Problems: Active and Suspected Problems (Last Reviewed 02/22/19 @ 02:51 by Renato Hutson MD) Cholangitis (Acute) Intractable abdominal pain (Acute) Subjective: Some improvement in right upper quadrant pain - Physical Exam General: Alert, Oriented x3 Lungs: Normal air movement Cardiovascular: Regular rate, Regular Rhythm Vital Signs Temp Pulse Resp BP Pulse Ox 98.8 F 61 18 133/80 H 92 02/26/19 05:55 02/26/19 05:55 02/26/19 05:55 02/26/19 05:55 02/26/19 07:35 Oxygen Flow Rate (L/min) 2 Oxygen Delivery Method Room Air Weight: 202 lb 13.204 oz Body Mass Index (BMI) 30.1 Intake and Output for Last 24 Hours 02/24/19 02/25/19 02/26/19 23:59 23:59 23:59 Intake Total 4121.55 / 4141.55 3072.45 / 3272.45 920 / 920 Output Total 600 / 600 Balance 3521.55 / 3541.55 3072.45 / 3272.45 920 / 920 Microbiology Past 72 Hours 02/22/19 08:20 Blood Culture - Preliminary Blood Culture (Wb) - Other No growth in 48 hours. 02/22/19 02:00 Blood Culture - Preliminary Blood Culture (Wb) - Anticubital Left No growth in 48 hours. 02/22/19 01:50 Blood Culture - Preliminary Blood Culture (Wb) - Anticubital Right No growth in 48 hours. Medical Necessity - Tobacco Use Smoking Status: Current every day smoker Tobacco Use: Cigarettes Assessment/Plan All Active Problems (Last Reviewed 02/22/19 @ 02:51 by Renato Hutson MD) Cholangitis (Acute) Sepsis (Acute) Leukocytosis (Acute) Intractable abdominal pain (Acute) Cocaine abuse (Resolved) Reaction, drug, adverse (Resolved) 53-year-old male with bile leak 1. Patient had successful ERCP with stent placement yesterday morning. He was started on clear liquid diet and advance to regular diet. He is still having some mild right upper quadrant pain. Unsure if he does have a biloma from his bile leak as it has been a few days since his last CT scan. From my standpoint is okay for diet and discharge when okay with primary surgeon and primary team. He is to follow-up in 6 to 8 weeks for stent removal and ERCP. Zachary Schaeffer MD Pager: [facility] [address] [place] [address] Office:
[2019-02-26 08:00] VITALS: PULSE 69
--- NOTE | 2019-02-26 09:38 | PCM.DC.GB ---
Discharge Diet: Light diet - advance as tolerated Discharge Activity: May Not Drive - for 2-3 days or while taking narcotic pain medications., - - Do not drive, work heavy equipment or sign legal documents for 24 hours. May shower in (days): 1 - with the bandage in place. Additional Activity Instructions:: Pain medication may cause nausea. You should typically eat light foods as you take your pain medications. Pain medication may also cause constipation. If this is a problem for you, please discuss with your doctor. Call your doctor if your incision/area has: Continuous Slow Oozing, Sudden Increased Bleeding, Increased Pain/ Swelling, Increased Redness, Foul Smelling Discharge Call your doctor if you observe: Fever of 101 or Higher Suture Line Care: Avoid Pulling/Pushing, Avoid Pinching/Bending Additional Dressing/Incision Instructions:: Leave operative bandaids on for 2 days. When you remove dressing, leave Steri-Strips on until your follow-up appointment, or until the Steri-Strips fall off on their own. Allergies/Adverse Reactions: Allergies methotrexate Adverse Reaction (Verified 02/21/19 22:57) Hives,Rash,Lesions naproxen [From Naprosyn] Adverse Reaction (Verified 02/21/19 22:57) Upset Stomach BEE VENOM Allergy (Uncoded 02/21/19 22:57) Anaphylaxis ROOT BEER Allergy (Uncoded 02/21/19 22:57) Hives Medications to take at Discharge Levothyroxine [Synthroid] 112 mcg PO DAILY 07/10/16 [place] Carbonate [[place] Carbonate ER] 300 mg PO DAILY 07/10/16 Albuterol Sulfate [Proventil Hfa] 6.7 gm IH Q4H PRN 10/21/16 Gabapentin [Neurontin] 900 mg PO TIDCM 10/21/16 Prazosin HCl 2 mg PO PRN PRN 07/21/17 clindamycin 1 % lotion 1 unit TOPICAL DAILY 30 Days #120 ml 03/21/18 cyanocobalamin (vit B-12) 1,000 mcg/mL injection solution 1,000 syr IM QMONTH 30 Days #1 ml 03/21/18 predniSONE tablet 60 mg PO DAILY #15 tab 10/06/18 Epi Pen (for allergic rxn) 0.3 mg IM X1 #3 syringe 02/07/19 Buprenorphine [Butrans 5 Mcg/Hr] 10 mcg TD QWEEK 02/14/19 Fluticasone/Vilanterol [Breo Ellipta 200-25 Mcg INH] 1 each INHALATION DAILY 02/14/19 Ginkgo Biloba 500 mg PO DAILY 02/14/19 Montelukast [Singulair] 10 mg PO QHS 02/14/19 Nicotine [Nicoderm Cq] 21 mg TRANSDERM. DAILY patch 02/26/19 Oxycodone [Oxyir] 5 mg PO Q4H PRN PRN 3 Days #12 tab 02/26/19 The following prescriptions were given: Oxycodone [Oxyir] 5 mg PO Q4H PRN PRN 3 Days #12 tab PRN Reason: Severe Pain (6-03/15) Prescription Printed Primary Care Physician: Hue Ahuja MD [Primary Care Provider] - Test Results: Test results from this visit will be discussed in further detail at your follow-up appointment, if applicable. Please Follow Up With: Erick Scanlon MD - Please call [phone] to schedule an appointment. When:
[2019-02-26] MEDS: LITHIUM CARBONATE 300 MG TABLET.ER PO (10:08)
--- NOTE | 2019-02-26 10:47 | NURSING ---
Left central line Dc'd per order. Tip intact. 3 sutures removed. Pressure applied for 5 minutes. Area dressed with vaseline guaze, 4x4 and tegaderm. Instructed to lie flat 30 min. Verbalizes understanding.
--- NOTE | 2019-02-26 10:51 | CASEMGMT ---
This RN CM to room to discuss discharge with pt at this time and pt states no needs at discharge at this time. Per Floresita ALEJO, pt has been independent in room. Pt/family states no further questions/concerns/needs at this time. Pilar RN CM
[2019-02-26] MEDS: Gabapentin 300 MG Capsule 900 MG PO (11:58)
--- NOTE | 2019-02-26 12:12 | NURSING ---
at bedside, they are arguing and upset at this time. is on the phone and is also yelling into the phone. Patient is frustrated and stated he just can't get a break. Patient does not want his blood pressure taken at this time and does not want to wear heart monitor. He is asking when he can leave
--- NOTE | 2019-02-26 13:44 | DS.PCM_ITS ---
Discharge Date and Diagnosis Date of Admission: 02/22/19 Date of Discharge: 02/26/19 - Primary Discharge Diagnosis Active and Suspected Problems (Last Reviewed 02/22/19 @ 02:51 by Renato Hutson MD) Ascending Cholangitis (Acute) Intractable abdominal pain (Acute) Bile leak S/P lap cholecystectomy ERCP and biliary stent by Dr. Schaeffer 02/25/2019 - Secondary Discharge Diagnosis Chronic Problems (Last Reviewed 02/22/19 @ 02:51 by Renato Hutson MD) Avascular necrosis of left femoral head (Chronic) Rheumatoid arthritis (Chronic) Nicotine dependence (Chronic) Old myocardial infarct (Chronic) Hepatitis C Non-Hodgkin's lymphoma Generalized anxiety with panic attacks Bipolar disorder COPD Nonspecific folliculitis - treated with chronic doxycycline from the boom tender Hospital Course and Treatment Imaging Results: Clinical Impression(s) from Imaging Studies Chest X-Ray 02/22/19 00:24 IMPRESSION: No acute findings on this portable exam. Follow-up as clinically indicated. at 0043 Reported and signed by: Olivia Caro MD Electronically Signed: Olivia Caro MD at 0:43 EDT Tel , Service support , Chest X-Ray 02/22/19 08:11 IMPRESSION: Atelectasis and/or infiltrate in the lingular segment of the left upper lobe. Electronically Signed: Davis Honeycutt, at 9:43 EDT , Service support , Abdomen/Pelvis CT 02/22/19 23:02 IMPRESSION: Findings consistent with recent cholecystectomy. Stranding and fluid in the gallbladder fossa and tracking along the common duct are nonspecific but could indicate the presence of cholangitis. Correlation with clinical findings is needed. Additional findings above. Individualized dose optimization techniques were used for this CT. at 0127 Reported and signed by: Olivia Caro MD Electronically Signed: Olivia Caro MD at 1:27 EDT Tel , Service support , Hepatobiliary Scan Nuclear Medicine 02/23/19 12:01 IMPRESSION: 1. The subtle focus of tracer distribution identified in the region of the gallbladder fossa may represent the presence of a small bile leak. Delayed imaging acquisition may be of benefit for further evaluation. Electronically Signed: Erick Bowles DO at 15:07 EDT Tel , Service support , ADDENDUM: 02/23/19 1604 ERCP X-Ray 02/25/19 07:24 IMPRESSION: Suspected bile leak from the cystic duct remnant after cholecystectomy Successful placement of a biliary stent Dilatation of the common hepatic duct as well as the left intrahepatic biliary tree Electronically Signed: Davis Honeycutt at 12:33 EDT , Service support , Microbiology 02/22/19 08:20 Blood Culture (Wb) - Other Blood Culture - Preliminary No growth in 48 hours. 02/22/19 02:00 Blood Culture (Wb) - Anticubital Left Blood Culture - Preliminary No growth in 48 hours. 02/22/19 01:50 Blood Culture (Wb) - Anticubital Right Blood Culture - Preliminary No growth in [address] Bella Medina and Dr. Erick Scanlon-[facility] general surgery Dr. Zachary Schaeffer-[place] general surgery Dr. Prasanna Wells and Dr. Laci Vazquez-public health Operations: cholecystecomy - Laparoscopic cholecystectomy on 02/14/[address] Scanlon. Procedures: - - ERCP and placement of biliary stent by Dr. Schaeffer on 02/25/2019 Summary of Care Provided: The patient is a 53 year old M with past medical history of non-Hodgkin's lymphoma(in remission), hypothyroidism, COPD, chronic hepatitis C, bipolar disorder, coronary artery disease with history of [place], history of cocaine abuse and chronic pain syndrome on Butrans patch who underwent a laparoscopic cholecystectomy on 02/14/[address] Scanlon. He presented to the emergency department at [facility] on 02/22/2019 complaining of excruciating epigastric pain that started 3 days prior to coming to the emergency department. White blood cell count at admission was 36.9 with a left shift. Lipase was normal at 53 and the LFTs were remarkable for a mild increased of ALT at 68. Lactate was 1.4. CT scan of the abdomen and pelvis with contrast showed stranding and fluid in the gallbladder fossa and tracking along the common duct. He was admitted to a medical surgical floor initially but, following evaluation by General surgery he was transferred to the ICU for concerns for ascending cholangitis and potential for decompensation. He was started on Zosyn. A HIDA scan was done on 02/23/2019 and at 3 hours postinjection showed continued accumulation of the radiopharmaceutical in the gallbladder fossa consistent with a bile leak. He was seen in consultation by Dr. Schaeffer who recommended an ERCP. The pt initially refused because there was a potential for intubation with the procedure and he is DNR CCA but, he later recanted and the ERCP was done on 02/25/19. The bile leak was identified and a biliary sphincterotomy was performed. The biliary tree was swept and nothing was found. One plastic stent was placed into the common bile duct. On 02/26/[address] Scanlon recommended discharge and he will follow up in the office on 03/08/2019. He was discharged on 5 days of Augmentin 875mg BID. He was given a prescription for narcotics for pain control by Dr. Scanlon. He will follow-up with Dr. Ahuja as needed. he received smoking cessation counselling while in the hospital. PHYSICAL EXAM: GENERAL: alert, oriented X 3, Cooperative, NAD ORAL: moist mucosa, no mucosal lesions NECK: No JVD, supple, trachea midline LUNGS: CTA, symmetric chest expansion HEART: RRR, Normal S1 and S2, no rub, no gallop ABDOMEN: soft, mild tenderness in the RUQ with palpation, ND, BS present, no guarding with palpation EXTREMITIES: no edema, no cyanosis, no calf tenderness SKIN: No rashes, no breakdown NEUROLOGIC: no focal neurologic deficits PSYCH: appropriate, normal affect, pleasant This note was generated with [employer] dictation software. It may contain incorrect words, spelling, and punctuation that were not noted in checking the note before signing. - Physical Exam Vital Signs Temp Pulse Resp BP Pulse Ox 98.8 F 69 18 133/80 H 92 02/26/19 05:55 02/26/19 08:00 02/26/19 05:55 02/26/19 05:55 02/26/19 07:35 Oxygen Flow Rate (L/min) 2 Oxygen Delivery Method Room Air Weight: 202 lb 13.204 oz Body Mass Index (BMI) 30.1 Intake and Output for Last 24 Hours 02/24/19 02/25/19 02/26/19 23:59 23:59 23:59 Intake Total 4121.55 / 4141.55 3072.45 / 3272.45 2254 / 2254 Output Total 600 / 600 Balance 3521.55 / 3541.55 3072.45 / 3272.45 2254 / 2254 Microbiology Past 72 Hours 02/22/19 08:20 Blood Culture - Preliminary Blood Culture (Wb) - Other No growth in 48 hours. 02/22/19 02:00 Blood Culture - Preliminary Blood Culture (Wb) - Anticubital Left No growth in 48 hours. 02/22/19 01:50 Blood Culture - Preliminary Blood Culture (Wb) - Anticubital Right No growth in 48 hours. Discharge Diet: Light diet - advance as tolerated Discharge Activity: May Not Drive - for 2-3 days or while taking narcotic pain medications., - - Do not drive, work heavy equipment or sign legal documents for 24 hours. May shower in (days): 1 - with the bandage in place. Additional Activity Instructions:: Pain medication may cause nausea. You should typically eat light foods as you take your pain medications. Pain medication may also cause constipation. If this is a problem for you, please discuss with your doctor. Call your doctor if your incision/area has: Continuous Slow Oozing, Sudden Increased Bleeding, Increased Pain/ Swelling, Increased Redness, Foul Smelling Discharge Call your doctor if you observe: Fever of 101 or Higher Suture Line Care: Avoid Pulling/Pushing, Avoid Pinching/Bending Additional Dressing/Incision Instructions:: Leave operative bandaids on for 2 days. When you remove dressing, leave Steri-Strips on until your follow-up appointment, or until the Steri-Strips fall off on their own. Home Medications: Medications to take at Discharge Levothyroxine [Synthroid] 112 mcg PO DAILY 07/10/16 [place] Carbonate [[place] Carbonate ER] 300 mg PO DAILY 07/10/16 Albuterol Sulfate [Proventil Hfa] 6.7 gm IH Q4H PRN 10/21/16 Gabapentin [Neurontin] 900 mg PO TIDCM 10/21/16 Prazosin HCl 2 mg PO PRN PRN 07/21/17 clindamycin 1 % lotion 1 unit TOPICAL DAILY 30 Days #120 ml 03/21/18 cyanocobalamin (vit B-12) 1,000 mcg/mL injection solution 1,000 syr IM QMONTH 30 Days #1 ml 03/21/18 predniSONE tablet 60 mg PO DAILY #15 tab 10/06/18 Epi Pen (for allergic rxn) 0.3 mg IM X1 #3 syringe 02/07/19 Buprenorphine [Butrans 5 Mcg/Hr] 10 mcg TD QWEEK 02/14/19 Fluticasone/Vilanterol [Breo Ellipta 200-25 Mcg INH] 1 each INHALATION DAILY 02/14/19 Ginkgo Biloba 500 mg PO DAILY 02/14/19 Montelukast [Singulair] 10 mg PO QHS 02/14/19 Amox/Clavulanate Tablet [Augmentin Tablet] 875 mg PO Q12H #10 tab 02/26/19 Nicotine [Nicoderm Cq] 21 mg TRANSDERM. DAILY patch 02/26/19 Oxycodone [Oxyir] 5 mg PO Q4H PRN PRN 3 Days #12 tab 02/26/19 Following Prescrptions Were Given to Patient: Amox/Clavulanate Tablet [Augmentin Tablet] 875 mg PO Q12H #10 tab Transmission Status: Received by [id number] Oxycodone [Oxyir] 5 mg PO Q4H PRN PRN 3 Days #12 tab PRN Reason: Severe Pain (-03/15) Prescription Printed Primary Care Physician: Hue Ahuja MD [Primary Care Provider] - Please Follow Up With: Erick Scanlon MD When: Please Follow Up With: Kamryn Bain, CLINICAL EDUCATOR-C Disposition: Home Minutes spent on discharge:: 30 Patient Condition:: Good Medical Necessity - Tobacco Use Smoking Status: Current every day smoker Tobacco Use: Cigarettes Meaningful Use Info Meaningful Use Diagnoses (Choose all that apply): None applicable Code Visit Inpatient E&M: 62303 Disch Hosp
[2019-02-26 14:30] VITALS: BP 140/95; PULSE 81; RESP 18; TEMP 36.6; O2SAT 95
--- NOTE | 2019-02-26 14:53 | PHA.DC.MR ---
Pharmacy Service has performed discharge medication reconciliation for this patient. The patient's discharge medication list was reviewed for discrepancies and discrepancies were resolved. 1. OXYCODONE 5MG PO Q4H PRN SEVERE PAIN 2. NICOTINE PATCH 21MG/24HR APPLY 1 PATCH DAILY Home Medications Levothyroxine [Synthroid] 112 mcg PO DAILY 07/10/16 [place] Carbonate [[place] Carbonate ER] 300 mg PO DAILY 07/10/16 Albuterol Sulfate [Proventil Hfa] 6.7 gm IH Q4H PRN 10/21/16 Gabapentin [Neurontin] 900 mg PO TIDCM 10/21/16 Prazosin HCl 2 mg PO PRN PRN 07/21/17 clindamycin 1 % lotion 1 unit TOPICAL DAILY 30 Days #120 ml 03/21/18 cyanocobalamin (vit B-12) 1,000 mcg/mL injection solution 1,000 syr IM QMONTH 30 Days #1 ml 03/21/18 predniSONE tablet 60 mg PO DAILY #15 tab 10/06/18 Epi Pen (for allergic rxn) 0.3 mg IM X1 #3 syringe 02/07/19 Buprenorphine [Butrans 5 Mcg/Hr] 10 mcg TD QWEEK 02/14/19 Fluticasone/Vilanterol [Breo Ellipta 200-25 Mcg INH] 1 each INHALATION DAILY 02/14/19 Ginkgo Biloba 500 mg PO DAILY 02/14/19 Montelukast [Singulair] 10 mg PO QHS 02/14/19 Amox/Clavulanate Tablet [Augmentin Tablet] 875 mg PO Q12H #10 tab 02/26/19 Nicotine [Nicoderm Cq] 21 mg TRANSDERM. DAILY patch 02/26/19 Oxycodone [Oxyir] 5 mg PO Q4H PRN PRN 3 Days #12 tab 02/26/19
--- NOTE | 2019-02-27 12:56 | CASEMGMT ---
Case Management DC F/u Call: DC Date: 02/26/19 DC Diagnosis: Ascending Cholangitis (Acute), Intractable abdominal pain (Acute), Bile leak S/P lap cholecystectomy , ERCP and biliary stent by Dr. Schaeffer 02/25/2019 DC Disposition: Home LACE/STRATA: 16 Called patient cell on list demographics, Voice recording verified patient and VM was left to return call back to CM if having any questions, concerns or issues with DC Instructions, medications or F/u appointments. BLANCA Arora
== END 2019-02-26 14:48 | disposition home or self-care (01) | DRG 252 ==
LOC: ED 23:39 → MS3 02-22 02:54 → ICU 02-22 06:59 → PCU 02-25 06:49
PROVIDERS: Anesthesiology; Internal Medicine Critical Care Medicine; Surgery; Admitting Provider Hospitalist; Emergency Provider Emergency Medicine; Family Provider Internal Medicine; PCP Internal Medicine; Referring Provider Hospitalist; Visit Provider Internal Medicine
PROC: 0F798DZ Dilation of Common Bile Duct with Intraluminal Device, Via Natural or Artificial Opening Endoscopic (ICD-10-PCS; CPT 43260; principal; 2019-02-25 07:00)
DX: K91.89 Other postprocedural complications and disorders of digestive system (principal); A41.9 Sepsis, unspecified organism; Y83.8 Other surgical procedures as the cause of abnormal reaction of the patient, or of later complication, without mention of misadventure at the time of the procedure; K83.09 Other cholangitis; G89.18 Other acute postprocedural pain; E03.9 Hypothyroidism, unspecified; J44.9 Chronic obstructive pulmonary disease, unspecified; F17.210 Nicotine dependence, cigarettes, uncomplicated; M06.9 Rheumatoid arthritis, unspecified; B18.2 Chronic viral hepatitis C; F43.10 Post-traumatic stress disorder, unspecified; E87.6 Hypokalemia; F31.9 Bipolar disorder, unspecified; L73.9 Follicular disorder, unspecified; F41.1 Generalized anxiety disorder; M87.852 Other osteonecrosis, left femur; I25.10 Atherosclerotic heart disease of native coronary artery without angina pectoris; Z79.52 Long term (current) use of systemic steroids; Z79.899 Other long term (current) drug therapy; Z85.72 Personal history of non-Hodgkin lymphomas; Z90.49 Acquired absence of other specified parts of digestive tract; F14.11 Cocaine abuse, in remission
CPT/HCPCS: 36415; 71045; 74177; 74328; 76000; 78226; 80048; 80053; 80076; 80178; 80307; 81001; 82962; 83605; 83690; 83735; 84100; 84443; 85025; 85027; 85610; 87040; 93005; 94640; 99283; 99285; 99406; A9537; J2185; J7030; J7050; J7120; Q9967; A4216; J2405; J3486

== ENCOUNTER 2019-02-27 21:27 | Emergency (ER) | payer MEDICAID, SELFPAY ==
[2019-02-25 08:04] VITALS: BMI 30.1
[2019-02-27 21:29] VITALS: BP 132/84; PULSE 109; RESP 18; TEMP 37.2; O2SAT 97; BMI 31.5
--- NOTE | 2019-02-27 22:00 | EKG12_ITS ---
Test Reason : Blood Pressure : / mmHG Vent. Rate : 103 BPM Atrial Rate : 103 BPM P-R Int : 118 ms QRS Dur : 072 ms QT Int : 330 ms P-R-T Axes : 039 058 037 degrees QTc Int : 432 ms Sinus tachycardia Otherwise normal ECG Confirmed by TONEY CHENEY ([id number]), supervising editor trailer LYNN DEVRIES ([id number]) on 03/06/2019 1:21:50 PM Referred By: Confirmed By:TONEY CHENEY
--- NOTE | 2019-02-27 22:00 | RAD_ITS ---
STUDY: X-RAY CHEST REASON FOR EXAM: Male, 53 years old. Postop complications. Biliary stent. TECHNIQUE: Single AP portable view of the chest. COMPARISON: 02/22/2019. FINDINGS: The lungs are clear and expanded. There is no demonstrated pleural abnormality. Normal size heart. Normal mediastinum and rima. Normal visualized pulmonary arteries. Normal visualized aortic arch and descending thoracic aorta. Normal visualized thoracic spine. Normal visualized ribs, clavicles, and shoulders. There is no demonstrated abnormality of the visualized soft tissue structures of the upper abdomen. RAD/Chest 1 View (Portable) IMPRESSION: Normal x-ray examination of the chest. Electronically Signed: Tanmay Jose MD at 22:14 EDT , Service support ,
[2019-02-27] MEDS: Furosemide 40 MG/4 ML Vial IV (22:50)
[2019-02-27 23:20] LABS: ALB/GLOB Ratio 0.8 RATIO (0.9-2.4); AST(SGOT) 21 U/L (15-37); Alanine Aminotransfer ALT/SGPT 55 U/L (16-61); Albumin, Serum 2.2 g/dL (3.2-5.0); Alkaline Phosphatase 78 U/L (45-117); Anion Gap 7 (5-15); BUN 22 mg/dL (7-18); BUN/Creat Ratio 22.8 RATIO (10-20); Calcium,Total 8.1 mg/dL (8.5-10.1); Chloride 112 mmol/L (98-107); Creatinine, Serum 0.96 mg/dL (0.70-1.30); EST Glomerular Filtration Rate 87 mL/min (>60); Est Glom Filt Rate - Afr Amer 105 mL/min (>60); Estimated Creatinine Clearance 82.15 ml/min; Globulin 2.9 g/dL (2.2-4.2); Glucose 198 mg/dL (74-106); Lipase 187 U/L (73-393); Protein, Total 5.1 g/dL (6.4-8.2); Sodium Level 143 mmol/L (136-145)
[2019-02-27 23:27] LABS: Basophil# 0.02 X10^3/uL; Basophil% 0.1 % (0-1); Eosinophil# 0.01 X10^3/uL; Eosinophils% 0.1 % (0-5); Hematocrit 38.9 % (40-54); Lymphocyte % 4.3 % (19-41); Mean Corp Hgb Conc 33.4 g/dL (32-36); Mean Corpuscular Hgb 32.1 pg (27.0-32.0); Mean Platelet Vol. 10.4 fl (6.2-12.0); Monocyte# 0.43 X10^3/uL; Monocyte% 3.1 % (0-10); NRBC Flagged by Analyzer 0 % (0-5); Neutrophil # 12.95 X10^3/uL (2.7-7.7); Neutrophil % 91.9 % (47-70); POSITIVE DIFFERENTIAL YES; Platelet Count 129 K/mm3 (150-450); RBC Distribution Width CV 13.7 % (11.6-14.6); RBC Distribution Width SD 48.7 fl (35.1-43.9); Red Blood Count 4.05 M/mm3 (4.6-6.2); White Blood Count 14.1 K/mm3 (4.4-11.0)
[2019-02-27 23:31] LABS: Differential Indicated SCAN CRITERIA MET
[2019-02-27] MEDS: Morphine 4 MG/ML Syringe IV (23:31)
[2019-02-27] MEDS: Ondansetron 4 MG/2 ML Vial IV (23:31)
--- NOTE | 2019-02-27 23:41 | ED.DCSUM_ITS ---
- ER Visit Summary Date of Service: 02/27/19 Chief Complaint: [Edema to the lower extremities] History of Present Illness: The patient is a 53 M [resents to the emergency department with edema to both lower extremities since yesterday. Patient states he was just discharged yesterday from the hospital after undergoing a stent in his common bile duct. Patient complains of some mild shortness of breath but states he has history of COPD and is always a little bit short of breath. He denies any chest pain. He denies any fever. Patient states that his legs have started weeping. Patient has history of cholangitis, rheumatoid arthritis, and COPD.] Physical Examination: [HEENT-PERRLA, EOMI. Cranial nerves II through XII grossly intact. TMs clear. Mucous membranes moist. No adenopathy. Cardiovascular-regular rate and rhythm without murmur or ectopy Lungs-clear to auscultation, chest wall stable without crepitus or subcu emphysema Abdomen-normoactive bowel sounds, soft, nontender, no rebound or rigidity, no peritoneal signs. Extremities-intact ?4, normal range of motion, normal pulses, atraumatic. Patient has +4 edema both lower extremities with open areas of weeping to the right lower extremity especially. Patient has some skin that is been sloughed off exposing some dermis. There is no bleeding. No rubs or cords palpated.] Test Results: [Chest x-ray obtained was normal. EKG obtained shows sinus rhythm with a ventricular rate of 103 bpm with no acute segment changes. CBC with differential showed a white count of 14.1, hemoglobin 13, hematocrit 39, platelets 129. Chemistries unremarkable. LFTs were normal. Lipase was 187. T roponin is less than 0.015.] Emergency Department Course and Treatment: [Patient given Lasix 40 mg IV. Patient given 4 mg of morphine and 4 mg of Zofran IV. Case was discussed with Dr. Erick Scanlon who asked that we start patient on Lasix and potassium for several days and patient has an appointment to see him in 2 days for follow-up.] Treatment Plan: [Patient will be given Lasix and potassium for home.] Disposition: [Discharged home in stable condition] Impression: [Bilateral lower extremity edema] This note was generated with Minefold[employer] software. It may contain incorrect words, spelling, and punctuation that were not noted in review of the chart prior to signing ED Disposition - Plan for ED Patient: Referrals: Hue Ahuja MD [Primary Care Provider] -
--- NOTE | 2019-02-27 23:45 | ED.DEP ---
ED Disposition - Plan for ED Patient: Instructions: ED Peripheral Edema, Bilateral Prescriptions: Potassium Chloride [K-Dur] 20 meq PO DAILY #4 tab Prescription Printed Furosemide [Lasix] 40 mg PO DAILY #4 tab Prescription Printed Referrals: Hue Ahuja MD [Primary Care Provider] - Erick Scanlon MD [STAFF PHYSICIAN] - 2 Days
[2019-02-28 00:05] VITALS: BP 124/87; PULSE 91; RESP 18; O2SAT 97
== END 2019-02-28 00:08 | disposition home or self-care (01) ==
PROVIDERS: Emergency Provider Emergency Medicine; Family Provider Internal Medicine; PCP Internal Medicine
DX: R60.0 Localized edema (principal); J44.9 Chronic obstructive pulmonary disease, unspecified; M06.9 Rheumatoid arthritis, unspecified; Z72.0 Tobacco use; Z79.899 Other long term (current) drug therapy; Z98.890 Other specified postprocedural states
CPT/HCPCS: 71045; 80048; 80053; 83690; 84484; 85025; 93005; 96374; 96375; 99284; A4216; J1940; J2405

== ENCOUNTER 2019-03-03 16:06 | Emergency (ER) | payer MEDICAID, SELFPAY ==
[2019-03-03 16:06] VITALS: BP 134/88; PULSE 97; RESP 16; TEMP 36.7; O2SAT 97; BMI 30.7
--- NOTE | 2019-03-03 16:36 | CT_ITS ---
STUDY: CT ABDOMEN AND PELVIS WITH CONTRAST REASON FOR EXAM: Male, 53 years old. Abdominal pain. Status post cholecystectomy. RADIATION DOSAGE (If Supplied By Facility): CTDIvol = ( 20.00 ) mGy, DLP = ( 1385.90 ) mGycm TECHNIQUE: Transaxial images were obtained from the dome of the diaphragm to the symphysis pubis without oral contrast. IV Isovue 300 100 was administered. Sagittal and coronal images were reconstructed. Individualized dose optimization techniques were used for this CT. COMPARISON: February 22, 2019 FINDINGS: There are small bilateral pleural effusions. The visualized portions of the heart are within normal limits. There is a stable well-circumscribed low-attenuation focus with peripheral calcifications within segment 4 of theThere are surgical clips in the gallbladder fossa consistent with a prior cholecystectomy. There is increased fluid associated with air within the gallbladder fossa. There are associated extraluminal foci of air within the region of the ashok hepatis and mesentery. There is new fluid within the mesentery noted as well. There is a biliary stent in place. Normal spleen. Normal pancreas. Normal bilateral adrenal glands. Normal right kidney. Normal left kidney. Normal visualized stomach. Normal small intestine. Normal colon. There is non-visualization of the appendix. There are a few peripheral calcifications of the abdominal aorta. Normal inferior vena cava. Normal retroperitoneum. Normal urinary bladder. Normal abdominal wall. There is a left hip arthroplasty in place. CT/Abdomen/Pelvis W IV Cont ONLY IMPRESSION: New fluid associated with extraluminal air within the gallbladder fossa and extending into the mesentery; cannot exclude underlying bowel perforation associated with evolving abscesses. Alternatively the air may be related to interval placement of a biliary stent. In addition a bile leak and/or a gas producing organism may be considered as well. Bilateral pleural effusions. N.B. : The above information has been verbally conveyed by Nadege Fam MD to Kvng Gallegos MD, , on 03/03/2019 17:54:19 (ET). Electronically Signed: Nadege Fam MD at 17:55 EDT Tel , Service support ,
--- NOTE | 2019-03-03 16:43 | ED.VISSUMM ---
- ER Visit Summary Date of Service: 03/03/19 Chief Complaint: Abdominal pain and distention status post cholecystectomy. History of Present Illness: The patient is a 53 M history of angina, non-Hodgkin's lymphoma in the past, COPD, [place], appendectomy, recent cholecystectomy. Patient states he has abdominal pain and distention. He had a cholecystectomy in the last several weeks. He developed a biliary leak and need to biliary stent. Now is complaining of abdominal distention along with nausea and right upper quadrant pain. He denies any fever or chills no dysuria. He has been having bowel movements and urinating. Physical Examination: White male. Vital signs stable afebrile. H EENT exam unremarkable. Neck nontender. Lungs clear to auscultation bilaterally. Heart regular rhythm no murmur. Abdomen is distended. Hypoactive bowel sounds. Tender in the right upper quadrant. No obvious organomegaly or masses. No peritoneal signs. Moving all 4 extremities. He has 1+ edema both lower extremities is equal and symmetrical. He states that was from his IV fluids. Neurologically is awake alert with no focal motor deficits. Test Results: This is a 22,000 white count hemoglobin 11. No bands. Chemistries unremarkable normal creatinine gap. Liver enzymes normal. Lipase normal. CT abdomen and pelvis shows fluid and the gallbladder fossa and air all of which is new and worse. This may be secondary to the biliary stent versus a gas producing infection versus for possible perforation. There is also small bilateral pleural effusions. I discussed all this with the patient. Emergency Department Course and Treatment: Male status post cholecystectomy and biliary leak then biliary stent. Complaining of abdominal pain with nausea and distention. CAT scan labs to be obtained. Is been giving morphine and Zofran for pain. Discussed the plan with the general surgeon on-call Dr. Bella Medina covering for Dr. Lavell Scanlon. Due to the fluid collection and possible infection she wants patient transferred to [facility] because we do not have interventional radiology over the weekend. Treatment Plan: I discussed all the test results and transfer with the patient is comfortable with the plan. He will be given a second dose of morphine. Started on IV Zosyn. I very spoken to Dr. Moore transfer line and are awaiting acceptance. Disposition: [] Impression: Abdominal pain Canary to biliary leak with suspected infection versus possible perforation. Leukocytosis Status post cholecystectomy. Status post biliary leak with biliary stent This note was generated with [employer] dictation software. It may contain incorrect words, spelling, and punctuation that were not noted in review of the chart prior to signing ED Disposition - Plan for ED Patient: Referrals: Hue Ahuja MD [Primary Care Provider] -
[2019-03-03 16:56] LABS: Absolute Lymphocyte Count 0.63 X10^3/uL (0.83-4.51); Absolute Neutrophil Count 21.9 X10^3/uL (2.0-7.7); Basophil# 0.03 X10^3/uL; Basophil% 0.1 % (0-1); Eosinophil# 0.04 X10^3/uL; Eosinophils% 0.2 % (0-5); Hematocrit 36.2 % (40-54); Hemoglobin 11.7 g/dL (13.0-16.5); Lymphocyte # 0.63 X10^3/ul (4.0); Lymphocyte % 2.7 % (19-41); Mean Corp Hgb Conc 32.3 g/dL (32-36); Mean Corpuscular Hgb 31.6 pg (27.0-32.0); Mean Corpuscular Volume 97.8 fL (80-94); Monocyte# 0.64 X10^3/uL; Monocyte% 2.7 % (0-10); NRBC Flagged by Analyzer 0 % (0-5); Neutrophil # 21.86 X10^3/uL (2.7-7.7); Neutrophil % 93.6 % (47-70); POSITIVE DIFFERENTIAL YES; Platelet Count 205 K/mm3 (150-450); RBC Distribution Width SD 50.7 fl (35.1-43.9); White Blood Count 23.4 K/mm3 (4.4-11.0)
[2019-03-03 16:57] LABS: Differential Indicated SCAN CRITERIA MET
[2019-03-03] MEDS: Ondansetron 4 MG/2 ML Vial IV (17:02)
[2019-03-03] MEDS: morphine 8 MG/ML Syringe IV (17:02)
[2019-03-03 17:09] VITALS: TEMP 36.7
[2019-03-03 17:12] LABS: AST(SGOT) 17 U/L (15-37); Alanine Aminotransfer ALT/SGPT 39 U/L (16-61); Albumin, Serum 1.9 g/dL (3.2-5.0); Alkaline Phosphatase 78 U/L (45-117); Anion Gap 6 (5-15); BUN 23 mg/dL (7-18); BUN/Creat Ratio 23.2 RATIO (10-20); Bilirubin, Direct 0.26 mg/dL (0.00-0.30); Calcium,Total 8.2 mg/dL (8.5-10.1); Chloride 107 mmol/L (98-107); Creatinine, Serum 0.99 mg/dL (0.70-1.30); EST Glomerular Filtration Rate 84 mL/min (>60); Est Glom Filt Rate - Afr Amer 102 mL/min (>60); Estimated Creatinine Clearance 79.66 ml/min; Globulin 3.4 g/dL (2.2-4.2); Glucose 207 mg/dL (74-106); Lipase 78 U/L (73-393); Potassium 3.8 mmol/L (3.5-5.1); Protein, Total 5.3 g/dL (6.4-8.2); Sodium Level 143 mmol/L (136-145)
[2019-03-03 17:22] LABS: Differential Comment SCANNED
--- NOTE | 2019-03-03 18:00 | NURSING ---
CALLING [facility], TALKED TO [facility]. ABOUT TRANSFER
[2019-03-03] MEDS: morphine 8 MG/ML Syringe 6 MG IV (18:09)
--- NOTE | 2019-03-03 18:15 | NURSING ---
TRANSFER TO [facility]
[2019-03-03 18:56] VITALS: BP 146/88; PULSE 75; RESP 16; TEMP 36.6; O2SAT 98
--- NOTE | 2019-03-03 19:37 | ED.RN ---
RN REPORT GIVEN TO TANMAY ALEJO AT [facility]. NO QUESTIONS OR CONCERNS FROM HER. RN WILL CONTINUE TO MONITOR PT.
--- NOTE | 2019-03-03 20:14 | NURSING ---
[facility] CALLED AND DUE OT STAFF CALL OFF THEY HAD TO CANCEL THE TRIP
== END 2019-03-03 20:47 | disposition short-term general hospital (02) ==
LOC: ED 16:43
PROVIDERS: Emergency Provider Emergency Medicine; Family Provider Internal Medicine; PCP Internal Medicine
DX: K91.89 Other postprocedural complications and disorders of digestive system (principal); Y83.8 Other surgical procedures as the cause of abnormal reaction of the patient, or of later complication, without mention of misadventure at the time of the procedure; K83.09 Other cholangitis; D72.829 Elevated white blood cell count, unspecified; J90 Pleural effusion, not elsewhere classified; J44.9 Chronic obstructive pulmonary disease, unspecified; I25.2 Old myocardial infarction; I20.9 Angina pectoris, unspecified; Z85.72 Personal history of non-Hodgkin lymphomas; Z90.49 Acquired absence of other specified parts of digestive tract; Z79.899 Other long term (current) drug therapy; Z72.0 Tobacco use
CPT/HCPCS: 74177; 80048; 80076; 83690; 85025; 96365; 96375; 96376; 99282; Q9967; A4216; J2405

== ENCOUNTER 2019-06-12 21:10 | Inpatient (IN) | payer MEDICAID, SELFPAY ==
[2019-06-12] VITALS (15 sets, daily range): BP systolic 135–200; BP diastolic 67–129; PULSE 119–186; RESP 16–51; TEMP 35.4–36.6; O2SAT 83–100; BMI 24.7; BMI 27.3
--- NOTE | 2019-06-12 21:14 | EKG12_ITS ---
Test Reason : SOB Blood Pressure : / mmHG Vent. Rate : 151 BPM Atrial Rate : 151 BPM P-R Int : 126 ms QRS Dur : 068 ms QT Int : 272 ms P-R-T Axes : 047 088 073 degrees QTc Int : [address] elevation consider inferolateral injury or acute infarct ACUTE IA / STEMI Abnormal ECG Confirmed by TONEY CHENEY ([id number]), online editor OSCAR QUEZADA ([id number]) on 06/14/2019 10:48:23 AM Referred By: Syl Montero Confirmed By:TONEY CHENEY
[2019-06-12] MEDS: Etomidate 20 MG/10 ML Vial IV (21:21)
[2019-06-12] MEDS: Rocuronium Bromide 50 MG/5 ML Vial 75 MG IV (21:22)
--- NOTE | 2019-06-12 21:25 | RAD_ITS ---
STUDY: X-RAY CHEST REASON FOR EXAM: Male, 54 years old. Chest pain TECHNIQUE: Frontal view of the chest COMPARISON: X-ray chest of 12/27/2018 FINDINGS: There is been interval placement of an endotracheal tube with the tip 4.2 cm from the carolee. There is been interval placement of a nasogastric tube with the distal end coiled over the left upper quadrant. The tip is off the field of view. The heart is normal in size. The visualized osseous structures are within normal limits. RAD/Chest 1 View (Portable) IMPRESSION: No acute thoracic pathology. Line and tube placement as above. Electronically Signed: Kvng Sarmiento, at 21:42 EST Tel , Service support ,
[2019-06-12 21:26] LABS: Bedside Glucose 82 mg/dL (70-110)
[2019-06-12 21:34] LABS: Absolute Lymphocyte Count 11.51 X10^3/uL (0.83-4.51); Absolute Neutrophil Count 29.4 X10^3/uL (2.0-7.7); Basophil# 0.21 X10^3/uL; Basophil% 0.5 % (0-1); Eosinophil# 0.02 X10^3/uL; Hematocrit 50.9 % (40-54); Hemoglobin 16.2 g/dL (13.0-16.5); Lymphocyte # 11.51 X10^3/ul (4.0); Lymphocyte % 25.2 % (19-41); Mean Corp Hgb Conc 31.8 g/dL (32-36); Mean Corpuscular Hgb 31.9 pg (27.0-32.0); Mean Corpuscular Volume 100.2 fL (80-94); Mean Platelet Vol. 8.8 fl (6.2-12.0); Monocyte# 3.56 X10^3/uL; Monocyte% 7.8 % (0-10); NRBC Flagged by Analyzer 0.1 % (0-5); Neutrophil # 29.37 X10^3/uL (2.7-7.7); Neutrophil % 64.3 % (47-70); POSITIVE COUNT YES; POSITIVE DIFFERENTIAL YES; Platelet Count 308 K/mm3 (150-450); RBC Distribution Width SD 45.4 fl (35.1-43.9); Red Blood Count 5.08 M/mm3 (4.6-6.2)
[2019-06-12] MEDS: Propofol 10MG/Ml 1,000 MG/100 ML Bottle 4.8 MG CONT INF (21:35)
--- NOTE | 2019-06-12 21:40 | CM.ED ---
Social Work Stemi Alert/Unresponsive Met with patient family. Introduced self as well as transition social worker role. Support provided. Assisted in escorting family to section laborer waiting room. Ruslan ARAIZA, MAHI
[2019-06-12 21:41] LABS: Prothrombin Time (Protime)PT. 12.7 SECONDS (11.7-14.9)
[2019-06-12 21:42] LABS: Partial Thromboplast Time 28.7 Seconds (24.1-36.2)
[2019-06-12 21:48] LABS: White Blood Count 45.7 K/mm3 (4.4-11.0)
[2019-06-12 21:49] LABS: Differential Indicated SCAN CRITERIA MET
--- NOTE | 2019-06-12 21:49 | ED.DCSUM_ITS ---
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 He is unable to give history. He is diaphoretic, cyanotic and has frothy sputum noted. According to he had a temperature of 101.9 yesterday and cough. She went to work and has not seen him since leaving for work early this morning. Brother went over and found him pacing in the restroom. He was grunting and responded no to everything he was asked. 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 (3) Nicotine dependence Status: Chronic (4) Rheumatoid arthritis Status: Chronic Past Medical History - Allergies and Home Meds Allergies/Adverse Reactions: Allergies methotrexate Adverse Reaction (Verified 03/03/19 16:10) Hives,Rash,Lesions naproxen [From Naprosyn] Adverse Reaction (Verified 03/03/19 16:10) Upset Stomach BEE VENOM Allergy (Uncoded 03/03/19 16:10) Anaphylaxis ROOT BEER Allergy (Uncoded 03/03/19 16:10) Hives Primary Care Physician: Hue Ahuja MD [Primary Care Provider] - Prior records reviewed: Yes Surgical History: appendectomy, arthroscopy, knee, cholecystectomy, total hip arthroplasty, - - Facial reconstructive surgery. Lives: Spouse/ Significant Other Smoking Status: Current every day smoker Alcohol: Rare Drugs: - - Old records history of drug use - Family History Maternal Family History: Reports: Cancer Paternal Family History: Reports: Cancer Review of Systems ROS: Unable to Obtain - Limited to what was documented in the HPI Physical Exam Vital Signs/Narrative: Vital Signs Temp Pulse Resp BP Pulse Ox 06/12/19 21:46 146 H 16 97 06/12/19 21:15 95.7 F L 141 H 51 H 200/129 H 87 Inital Vital Signs reviewed: Yes General: Well nourished, Well developed, Acute Distress Head: Normocephalic, Atraumatic Eyes: Perrl, EOMI. Negative for: Pale conjunctiva, Scleral icterus ENT: Moist mucous membranes, No rhinorrhea Neck: Supple, Nontender, No lymphadenopathy. Negative for: No JVD Cardiovascular: Regular rhythm, No murmurs, Normal S1, Tachycardia Respiratory: Chest nontender, Rales, Wheezing, Decreased Air Movement, Retractions Abdomen: Soft, Nontender, Nondistended, Normal bowel sounds Rectal: Deferred Back: Nontender Extremities: Nontender, No edema Skin: Cyanosis, Diaphoresis, No Trauma, Pallor. Negative for: Jaundice, Rash Neurological: Negative for: Alert, Oriented x3, Cranial nerves II-XII grossly intact Psychological: - - Able to determine Diagnostic/Tx/Re-eval Chest X-Ray - ED: 1 View, Read by ED Physician, - - Endotracheal tube in proper position. Patient has interstitial fluffiness noted bilaterally consistent with pulmonary edema. - Rhythm Strip Rhythm Strip: Sinus Tach Rate: 141 Ectopy: None - EKG Initial EKG Interpretation: Sinus Tachycardia, - - Cute ST elevation inferolateral leads. ME interval 126 ms. QRS duration 68 ms. QT duration 272 ms. Randall is normal. - Medical Decision Making Based on initial history patient initial orders were for sepsis. In light of EKG findings patient was made a STEMI. 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 EKGs were faxed to him. Patient received aspirin, Integrilin and heparin bolus. Because he has acute heart failure nitro drip was started but I was informed that he is on erectile dysfunction meds. He is on short acting Viagra. Last dose was over 72 hours ago. Therefore it is safe to give him nitroglycerin. Clinically is not fluid overloaded and reason Lasix was not given. Because of his respiratory symptoms that were infectious in nature and started yesterday sepsis work-up was undertaken and he was started antibiotics. Plan is to Healthcare Specialist and admit to ICU - Critical Care Time Critical care time (excluding procedures): 30-74 minutes, Discussing w/Patient &/or Family/Integration Project Manager, Discussing w/Consultants, Arranging Admission or Transfer, Performing Direct Patient Care at Bedside - Critical care time 42 minutes Procedures Procedure(s): Patient was a muscle distress cyanotic with poor perfusion he was prepped for oral tracheal invasion by RSI technique. He was placed on nonrebreather. He remained cyanotic. He received 20 mg of etomidate followed by 75 mg of rocuronium. He was easily orotracheally with 7.5 endotracheal tube. Breath sounds are noted bilaterally. Appropriate color change on capnometer. Chest x-ray confirms proper placement. Chest x-ray also reveals evidence of pulmonary edema. ED Disposition - Plan for ED Patient: Disposition: Acute Care Hospital [facility] Diagnosis: Acute ST elevation myocardial infarction (STEMI) of inferior wall, Severe sepsis, Sinus tachycardia by electrocardiogram, Respiratory infection Referrals: Hue Ahuja MD [Primary Care Provider] -
--- NOTE | 2019-06-12 21:50 | ED.RN ---
DR KONG NOTIFIED OF WBC OF 45.69
[2019-06-12] MEDS: Heparin Injection (Vial) 5,000 UNIT/ML VIAL 4000 UNIT IV (21:52)
[2019-06-12 21:54] LABS: ALB/GLOB Ratio 0.7 RATIO (0.9-2.4); AST(SGOT) 74 U/L (15-37); Alanine Aminotransfer ALT/SGPT 63 U/L (16-61); Albumin, Serum 2.9 g/dL (3.2-5.0); Alkaline Phosphatase 98 U/L (45-117); Anion Gap 9 (5-15); BUN 14 mg/dL (7-18); BUN/Creat Ratio 11.2 RATIO (10-20); Calcium,Total 8.6 mg/dL (8.5-10.1); Chloride 107 mmol/L (98-107); Creatinine, Serum 1.25 mg/dL (0.70-1.30); EST Glomerular Filtration Rate 64 mL/min (>60); Est Glom Filt Rate - Afr Amer 78 mL/min (>60); Estimated Creatinine Clearance 73.63 ml/min; Globulin 3.9 g/dL (2.2-4.2); Glucose 75 mg/dL (74-106); Lipase 71 U/L (73-393); Potassium 4.3 mmol/L (3.5-5.1); Protein, Total 6.8 g/dL (6.4-8.2); Sodium Level 137 mmol/L (136-145)
[2019-06-12] MEDS: Aspirin 81 MG TAB.CHEW 324 MG PO (21:58)
[2019-06-12] MEDS: TICAGRELOR 90 MG TABLET 180 MG PO (21:58)
[2019-06-12 21:59] LABS: Platelet Estimate ADEQUATE (ADEQ); Red Cell Morphology NORM C+C NORMAL (NORM C&C)
[2019-06-12 22:00] LABS: Reactive Lymphocyte 1+
[2019-06-12 22:08] LABS: Bacteria 0 SEEN /hpf (None Seen); Squamous Epithelial Cells - UA 0 SEEN /hpf (0-5)
[2019-06-12 22:09] LABS: Color, Urine Yellow (Yellow); Glucose, Dipstick Normal (Normal); Leukocyte Esterase-Dipstick Negative /ul (Negative); Nitrite-Dipstick Negative (Negative); Occult Blood-Urine 150 /ul (Negative); Protein-Dipstick 100 mg/dl (Negative); Urine Clarity Clear (Clear); Urine Urobilinogen Normal (Normal)
[2019-06-12] MEDS: Nitroglycerin Infusion 250 ML 6 MG CONT INF (22:11)
[2019-06-12 22:17] LABS: Urine Bilirubin Dipstick 1 mg/dL (Negative)
[2019-06-12 22:19] LABS: Hyaline Cast 0-5 SEEN /lpf (0-5); Ketone-Dipstick 150 mg/dl (Negative); Mucous, Urine 1+ /hpf (<or=2+)
[2019-06-12 22:20] LABS: Red Blood Cells-Urine 0-5 SEEN /hpf (0-5); White Blood Cells 0-5 SEEN /hpf (0-5)
[2019-06-12 22:24] LABS: Amphetamine Urine VISTA NEGATIVE (<1000 ng/mL); Barbiturate Urine VISTA NEGATIVE (< 200 ng/mL); Benzodiazepine Urine VISTA NEGATIVE (< 200 ng/mL); Cocaine Urine VISTA NEGATIVE (< 300 ng/mL); Ecstacy Urine VISTA NEGATIVE (< 500 ng/mL); Methadone Urine VISTA NEGATIVE (< 300 ng/mL); PCP Urine VISTA NEGATIVE (< 25 ng/mL); THC Urine VISTA NEGATIVE (< 50 ng/mL); Vista UDS pH Range 6
[2019-06-12 22:25] LABS: BNP,B-Type NATRIURETIC PEPTIDE 83.5 pg/mL (0-100)
--- NOTE | 2019-06-12 23:10 | PCM.CONS.C ---
Reason for Consult Date of Consultation: 06/12/19 Reason for Consultation: suspected STEMI History of Present Illness: Patient is a 54-year-old male who presents by squad in severe respiratory distress. He was unable to give history. He was diaphoretic, cyanotic and had frothy sputum on presentation. According to he had a temperature of 101.9 yesterday and cough. She went to work and has not seen him since leaving for work early this morning. Brother went over and found him pacing in the restroom. He was grunting and responded no to everything he was asked. In the ER patient was intubated and an EKG was done which showed sinus tachycardia with ST elevation in the inferior leads and lateral leads. STEMI alert was called. Patient was evaluated prior to cardiac catheterization. Due to ST elevation on the EKG and patient being unable to give any history we proceeded with coronary angiography which revealed no significant obstructive coronary arteries. Regional wall motion abnormalities were consistent with Takotsubo cardiomyopathy.[ Review of systems: Review of systems cannot be obtained because patient is intubated and sedated.] Past Medical History Allergies/Adverse Reactions: Allergies methotrexate Adverse Reaction (Verified 06/12/19 22:07) Hives,Rash,Lesions naproxen [From Naprosyn] Adverse Reaction (Verified 06/12/19 22:07) Upset Stomach BEE VENOM Allergy (Uncoded 06/12/19 22:07) Anaphylaxis ROOT BEER Allergy (Uncoded 06/12/19 22:07) Hives Home Medications: Ambulatory Orders Medication Instructions Recorded Levothyroxine [Synthroid] 112 mcg PO DAILY 07/10/16 [place] Carbonate [[place] 300 mg PO DAILY 07/10/16 Carbonate ER] Albuterol Sulfate [Proventil Hfa] 6.7 gm IH Q4H PRN 10/21/16 Gabapentin [Neurontin] 900 mg PO TIDCM 10/21/16 Prazosin HCl 2 mg PO PRN PRN 07/21/17 clindamycin phosphate 1 % lotion 1 unit TOPICAL DAILY 30 Days #120 03/21/18 ml cyanocobalamin (vitamin B-12) 1,000 syr IM QMONTH 30 Days #1 ml 03/21/18 1,000 mcg/mL injection solution predniSONE tablet 60 mg PO DAILY #15 tab 10/06/18 Epi Pen (for allergic rxn) 0.3 mg IM X1 #3 syringe 02/07/19 Buprenorphine [Butrans 5 Mcg/Hr] 10 mcg TD QWEEK 02/14/19 Fluticasone/Vilanterol [Breo 1 each INHALATION DAILY 02/14/19 Ellipta 200-25 Mcg INH] Ginkgo Biloba 250 mg PO DAILY 02/14/19 Montelukast [Singulair] 10 mg PO QHS 02/14/19 Amox/Clavulanate Tablet [Augmentin 875 mg PO Q12H #10 tab 02/26/19 Tablet] Nicotine [Nicoderm Cq] 21 mg TRANSDERM. DAILY patch 02/26/19 Furosemide [Lasix] 40 mg PO DAILY #4 tab 02/27/19 Ginseng 250 mg PO DAILY 02/27/19 Potassium Chloride [K-Dur] 20 meq PO DAILY #4 tab 02/27/19 Oxycodone HCl/Acetaminophen 1 tab PO Q4H PRN PRN 03/03/19 [Percocet 5/325] Past Medical History (Chronic Problems): Chronic Problems (Last Reviewed 02/22/19 @ 02:51 by Renato Hutson MD) Avascular necrosis of left femoral head (Chronic) Rheumatoid arthritis (Chronic) Nicotine dependence (Chronic) Old myocardial infarct (Chronic) Surgical History: appendectomy, arthroscopy, knee, cholecystectomy, total hip arthroplasty, - - Facial reconstructive surgery. Psychiatric History: Bipolar - *Family History Maternal History Items: Cancer Paternal History Items: Cancer Lives: Spouse/ Significant Other Smoking Status: Unknown if ever smoked Alcohol: Rare Drugs: - - Old records history of drug use Objective: Vital Signs Temp Pulse Resp BP Pulse Ox 95.7 F L 133 H 16 163/110 H 99 06/12/19 21:15 06/12/19 22:11 06/12/19 22:07 06/12/19 22:11 06/12/19 22:07 Oxygen Flow Rate (L/min) 15 Oxygen Delivery Method Mechanical Ventilator Weight: 177 lb 14.609 oz Body Mass Index (BMI) 24.7 Finger Stick Blood Glucose 82 General: - - Patient is intubated, sedated Oral: Moist Mucosa Cardiovascular: Regular Rhythm Abdomen: Soft Extremities: No edema Skin: No Rashes 06/12/19 21:20: WBC 45.7 H*, RBC 5.08, Hgb 16.2, Hct 50.9, MCV 100.2 H, MCH 31.9, MCHC 31.8 L, Plt Count 308, MPV 8.8, Immature Gran % (Auto) 2.200 H, Neut % (Auto) 64.3, Lymph % (Auto) 25.2, [place] % (Auto) 7.8, Eos % (Auto) 0.0, Baso % (Auto) 0.5, Absolute Neuts (auto) 29.4 H, Nucleated RBC % 0.1 06/12/19 21:20: PT 12.7, INR 1.0, APTT 28.7 06/12/19 21:20: Sodium 137, Potassium 4.3, Chloride 107, Carbon Dioxide 21.0, Anion Gap 9, BUN 14, Creatinine 1.25, Est GFR (MDRD) Af Amer 78, Est GFR (MDRD) Non-Af 64, BUN/Creatinine Ratio 11.2, Glucose 75, Calcium 8.6, Total Bilirubin 0.70, Troponin I 0.052 H 06/12/19 21:20: B-Natriuretic Peptide 83.5 06/12/19 22:00: Urine Color Yellow, Urine Clarity Clear, Urine pH 6.0, Ur Specific [place] 1.020, Urine Protein 100 H, Urine Glucose (UA) Normal, Urine Ketones 150 H, Urine Occult Blood 150 H, Urine Nitrite Negative, Urine Bilirubin 1 H, Urine Urobilinogen Normal, Ur Leukocyte Esterase Negative, Urine RBC 0-5 SEEN, Urine WBC 0-5 SEEN Rhythm: EKG: ECHO: Stress Test: Cardiac Cath: PCI: CT Surgery: Holter monitor: EPS: PPM: CXR: Chest CT Scan: Assessment/Plan 1. Suspected inferior ST elevation PR: Coronary angiography revealed no significant coronary artery disease. Wall motion abnormalities are consistent with Takotsubo cardiomyopathy. Patient was in respiratory distress and had a fever and cough yesterday. It is possible that he has an underlying acute pulmonary issue that caused the respiratory distress and precipitated stress-induced cardiomyopathy. Patient's LVEDP is elevated. It is reasonable to give him 1 dose of Lasix at this time. We can also start him on a low-dose MARITZA inhibitor and a beta-consuelo. If he becomes hypotensive consider switching from propofol to a different medication such as fentanyl or Versed to keep the patient sedated. 2. Cardiomyopathy: Patient has Takotsubo cardiomyopathy. Management as described above. Critical care time spent taking care of this patient excluding procedure time is 40 minutes
--- NOTE | 2019-06-12 23:32 | CL.D_ITS ---
Patient Name: VITA MAYORGA Study Date: 06/12/2019 Performing: Riddhi Montero MD Ht: 70.86 inches 180 cm : 1965 Wt: 178.57 lbs 81 kg Age: 54 Gender: male BSA: 2.01 PROCEDURE(S) PERFORMED [id number]/LV CLINICAL PROFILE AND INDICATIONS Indications: ACS <= 24 hrs Heart Failure: None Stress/Imaging Stress/Image Study Performed: No CAD Presentations: suspected STEMI. Symptom onset Date/Time: 06/12/19 Time Not Available CONCLUSIONS No significant CAD, Takotsubo cardiomyopathy with EF of around 25%. No significant or MR RECOMMENDATIONS DESCRIPTION OF PROCEDURE The patient arrived to the procedure lab. The risks and benefits of the procedure as well as a full d escription of our services here and current unavailability of surgical backup were fully explained to the patient and/or their significant other prior to the catheterization. The Timeout was completed, verifying the correct patient and procedure. The patient's procedural site was prepped and draped in the usual fashion. Local anesthetic was given subcutaneously to right radial region with Lidocaine 2% . Using a modified Seldinger technique, arterial access was obtained via the right femoral artery, a 6Fr sheath was inserted. Left Coronary Artery selective angiography was performed in multiple views using a 5 Fr. JL3.5 catheter. Left Ventriculography was performed in CONTRERAS projection using a 5 Fr. Pig tail catheter. LV to AO pullback pressures were then recorded. Right Coronary Artery selective angiog kuhs was then performed in multiple views using a 5 Fr. JR 4 catheter.The arterial sheath was pulled and a TR Band was applied for hemostasis CORONARY ANGIOGRAPHY DOMINANCE: Right Dominant LEFT HEART ASSESSMENT Left Ventricular Ejection Fraction: by LV Gram 25 % The base and apex are mary well. The mid LV is severely hypokinetic. This is suggestive of api ana maria sparing variant of Takotsubo cardiomyopathy. LEFT MAIN: Mild luminal irregularities LEFT ANTERIOR DESCENDING ARTERY: Mild luminal irregularities CIRCUMFLEX ARTERY: Angiographically normal RIGHT CORONARY ARTERY: Angiographically normal VALVE FINDINGS: No Aortic Valve Stenosis No Mitral Insufficency COMPLICATIONS No Complications PROCEDURE MEDICATIONS Oxygen: 100 % FiO2 via ventilator. See Resp Record for Settings Heparin given IA 06/12/2019 22:48:27 Nitro drip in ER. Was brought to the laborer wood preserving plant with the drips running ^FreeText^ 06/12/2019 22:51:34 Verapamil 2.5mg, Ntg 100mcgs, 2000 units of Heparin given IA 06/12/2019 22:48:27 SUMMARY OF HEMODYNAMIC DATA Time AIR REST ECG 22:28:25 AO 110/89 (104) SA 22:51:58 LV 136/-4, 30 22:55:54 LV 133/-7, 36 22:56:00 LVp 137/-4, 37 22:56:07 AOp 121/79 (99) 22:56:12 Signed By Riddhi Montero MD On 06/12/2019 23:31:50 Riddhi Montero MD
[2019-06-13] VITALS (38 sets, daily range): BP systolic 90–137; BP diastolic 53–99; PULSE 83–136; RESP 16–47; TEMP 36.6–38.4; O2SAT 94–100
[2019-06-13] MEDS: fentaNYL drip 100 ML 2.5 MCG IV (00:25)
[2019-06-13] MEDS: 0.9% Normal Saline 1,000 ML 75 ML IV ×2 (00:28→13:59)
--- NOTE | 2019-06-13 00:43 | HP.PCM_ITS ---
Problem List (1) Takotsubo cardiomyopathy Status: Acute (2) Respiratory failure Status: Acute Qualifiers: Chronicity: acute Respiratory failure complication: hypoxia Qualified Code(s): J96.01 - Acute respiratory failure with hypoxia (3) Acute ST elevation myocardial infarction (STEMI) of inferior wall Status: Acute History of Present Illness Date of Admission: 06/13/19 Chief Complaint: Shortness of breath - 1 day. Altered mental status The patient is a 54 year old M with past medical history of non-Hodgkin's lymphoma in remission, hypothyroidism, COPD, chronic hepatitis C, bipolar disorder, history of substance abuse who presented to the emergency room with acute onset of shortness of breath. Patient was found by his son in his room with the lights out, pacing up and down with grunting sounds. He appeared to be in respiratory distress. He looked confused, was almost naked which was unlike him. When asked, patient stated no several times to being admitted. Persistent confusion and worsening respiratory status, the EMS was called. And was found to be breathing 28 times a minute. He was alert but appeared confused. His pulse ox was 93% on room air. Blood sugar was 50. He was put on 15 L nonrebreather mask and his pulse ox increased to 99%. Per review of records in [facility] and after discussion with the ED physician, patient was said to be febrile a day before admission with temperature 101.9 as well as a cough. Assessment in the emergency room found him to being febrile respiratory distress with cyanosis. He was subsequently intubated. Further work-up including an EKG showed acute ST segment elevation in the inferior wall as well as tachycardia. STEMI alert was called and patient was rushed to the cardiac adding machine operator. Findings included clean coronaries with Takastubo picture with an EF of 25%. His WBC count was 45.7, hemoglobin 16.2, platelet count of 308, INR was 1.0, his BMP was unremarkable. His LFTs show elevated AST of 74, ALT of 63, ALP 98, troponin was 0.052. UA is unremarkable. Urine tox is positive for opiates Patient was seen and examined in the ICU. He has been intubated, remains restless, tachycardic on telemetry. He has maxed out on his propofol. Fentanyl will be added. Past Medical History Past Medical History (Chronic Problems): Chronic Problems (Last Reviewed 02/22/19 @ 02:51 by Renato Hutson MD) Avascular necrosis of left femoral head (Chronic) Rheumatoid arthritis (Chronic) Nicotine dependence (Chronic) Old myocardial infarct (Chronic) Medical History: Medical History (Last Reviewed 02/22/19 @ 02:51 by Renato Hutson MD) Nicotine dependence (Chronic) F17.200 Old myocardial infarct (Chronic) I25.2 Bipolar disorder F31.9 Hepatitis C, chronic B18.2 Hypothyroidism E03.9 NH lymphoma C85.90 Panic anxiety syndrome F41.0 chronic obstructive lung disease Allergies methotrexate Adverse Reaction (Verified 06/12/19 22:07) Hives,Rash,Lesions naproxen [From Naprosyn] Adverse Reaction (Verified 06/12/19 22:07) Upset Stomach BEE VENOM Allergy (Uncoded 06/12/19 22:07) Anaphylaxis ROOT BEER Allergy (Uncoded 06/12/19 22:07) Hives Home Medications: Ambulatory Orders Medication Instructions Recorded Levothyroxine [Synthroid] 112 mcg PO DAILY 07/10/16 [place] Carbonate [[place] 300 mg PO DAILY 07/10/16 Carbonate ER] Albuterol Sulfate [Proventil Hfa] 6.7 gm IH Q4H PRN 10/21/16 Gabapentin [Neurontin] 900 mg PO TIDCM 10/21/16 Prazosin HCl 2 mg PO PRN PRN 07/21/17 clindamycin phosphate 1 % lotion 1 unit TOPICAL DAILY 30 Days #120 03/21/18 ml cyanocobalamin (vitamin B-12) 1,000 syr IM QMONTH 30 Days #1 ml 03/21/18 1,000 mcg/mL injection solution predniSONE tablet 60 mg PO DAILY #15 tab 10/06/18 Epi Pen (for allergic rxn) 0.3 mg IM X1 #3 syringe 02/07/19 Buprenorphine [Butrans 5 Mcg/Hr] 10 mcg TD QWEEK 02/14/19 Fluticasone/Vilanterol [Breo 1 each INHALATION DAILY 02/14/19 Ellipta 200-25 Mcg INH] Ginkgo Biloba 250 mg PO DAILY 02/14/19 Montelukast [Singulair] 10 mg PO QHS 02/14/19 Amox/Clavulanate Tablet [Augmentin 875 mg PO Q12H #10 tab 02/26/19 Tablet] Nicotine [Nicoderm Cq] 21 mg TRANSDERM. DAILY patch 02/26/19 Furosemide [Lasix] 40 mg PO DAILY #4 tab 02/27/19 Ginseng 250 mg PO DAILY 02/27/19 Potassium Chloride [K-Dur] 20 meq PO DAILY #4 tab 02/27/19 Oxycodone HCl/Acetaminophen 1 tab PO Q4H PRN PRN 03/03/19 [Percocet 5/325] Surgical History: Surgical History (Last Reviewed 02/22/19 @ 02:51 by Renato Hutson MD) H/O arthroscopic knee surgery Z98.890 H/O total hip arthroplasty Z96.649 History of appendectomy Z90.49 History of left heart catheterization Z98.890 facial reconstructive surgery Surgical History: appendectomy, arthroscopy, knee, cholecystectomy, total hip arthroplasty, - - Facial reconstructive surgery. Psychiatric History: Bipolar Lives: Spouse/ Significant Other Smoking Status: Unknown if ever smoked Alcohol: Rare Drugs: - - Old records history of drug use - *Family History Maternal History Items: Cancer Paternal History Items: Cancer Review of Systems HEENT: Denies: Sinus Drainage Unable to obtain accurate/complete ROS d/t: Unable to do review of system because patient is intubated VTE Information - Inpt Only VTE Present on Admission: No VTE Pharm Prophylaxis ordered?: Yes Patient Problems: Active and Suspected Problems (Last Reviewed 02/22/19 @ 02:51 by Renato Hutson MD) Acute ST elevation myocardial infarction (STEMI) of inferior wall (Acute) Severe sepsis (Acute) Sinus tachycardia by electrocardiogram (Acute) Respiratory infection (Acute) Encounter for observation for suspected nervous system disorder (Acute) Takotsubo cardiomyopathy (Acute) Respiratory failure (Acute) - Physical Exam Vitals/I&O's: Vital Signs Temp Pulse Resp BP Pulse Ox 97.9 F 135 H 28 H 106/59 L 100 06/13/19 00:00 06/13/19 00:15 06/13/19 00:15 06/13/19 00:15 06/13/19 00:15 Oxygen Flow Rate (L/min) 15 Oxygen Delivery Method Mechanical Ventilator Weight: 80.7 kg Body Mass Index (BMI) 24.7 Finger Stick Blood Glucose 82 General: Cooperative, - - Intubated, on mechanical ventilation, restless HEENT: Atraumatic, Normocephalic, - - Right pupil is unreactive to light, left pupils reacts consensually with light Oral: Moist Mucosa, - - OG tube in situ Neck: Supple, No JVD, Negative Carotid Bruits Lungs: Clear to auscultation, Normal air movement Cardiovascular: Regular rate, Regular Rhythm, Normal S1, Normal S2, No murmurs, Tachycardic Abdomen: Bowel Sounds Present, Soft, Non Tender, Non-Distended, No Hepato- splenomegaly Extremities: No edema Skin: - - Numerous petechial rash and excoriations all over body as well as tattoes on trunk and extremities Musculoskeletal: No Tenderness to Palpation of Joints or Extremities Neurological: Cranial nerves II-XII grossly intact Psych/Mental Status: Normal Affect, Appropriate Laboratory Results 06/12/19 21:13: POC Glucose 82 06/12/19 21:20: WBC 45.7 H*, RBC 5.08, Hgb 16.2, Hct 50.9, MCV 100.2 H, MCH 31.9, MCHC 31.8 L, RDW Std Deviation 45.4 H, RDW Coeff of Re 12.0, Plt Count 308, MPV 8.8, Immature Gran % (Auto) 2.200 H, Neut % (Auto) 64.3, Lymph % (Auto) 25.2, [place] % (Auto) 7.8, Eos % (Auto) 0.0, Baso % (Auto) 0.5, Absolute Neuts (auto) 29.4 H, Absolute Lymphs (auto) 11.51 H, Nucleated RBC % 0.1, Differential Comment , Diff Path Review May foll, Reactive Lymphocytes 1+, Platelet Estimate ADEQUATE, RBC Morphology NORM C+C 06/12/19 21:20: PT 12.7, INR 1.0, APTT 28.7 06/12/19 21:20: Sodium 137, Potassium 4.3, Chloride 107, Carbon Dioxide 21.0, Anion Gap 9, BUN 14, Creatinine 1.25, Estim Creat Clear Calc 73.63, Est GFR (MDRD) Af Amer 78, Est GFR (MDRD) Non-Af 64, BUN/Creatinine Ratio 11.2, Glucose 75, Calcium 8.6, Total Bilirubin 0.70, AST 74 H, ALT 63 H, Alkaline Phosphatase 98, Troponin I 0.052 H, Total Protein 6.8, Albumin 2.9 L, Globulin 3.9, Albumin/Globulin Ratio 0.7 L, Lipase 71 L 06/12/19 21:20: B-Natriuretic Peptide 83.5 06/12/19 22:00: Urine Color Yellow, Urine Clarity Clear, Urine pH 6.0, Ur Specific [place] 1.020, Urine Protein 100 H, Urine Glucose (UA) Normal, Urine Ketones 150 H, Urine Occult Blood 150 H, Urine Nitrite Negative, Urine Bilirubin 1 H, Urine Urobilinogen Normal, Ur Leukocyte Esterase Negative, Urine RBC 0-5 SEEN, Urine WBC 0-5 SEEN, Ur Squamous Epith Cells 0 SEEN, Urine Bacteria 0 SEEN, Hyaline Casts 0-5 SEEN, Urine Mucus 1+ 06/12/19 22:00: Urine Opiates Screen POSITIVE H, Urine Methadone Screen NEGATIVE, Ur Barbiturates Screen NEGATIVE, Ur Phencyclidine Scrn NEGATIVE, Ur Amphetamines Screen NEGATIVE, U Methamphetamin-MDMA NEGATIVE, U Benzodiazepines Scrn NEGATIVE, Urine Cocaine Screen NEGATIVE, U Cannabinoids Screen NEGATIVE, Ur Drug Screen Comment Current Medications Acetaminophen (Tylenol) 650 mg RECTAL Q4H PRN PRN PRN Reason: Pain Score 1-10/Temp > 100.7 F Albuterol Sulfate (Ventolin Aerosols) 2.5 mg INHALATION Q2H PRN PRN PRN Reason: SOB/Wheezing Carvedilol (Coreg) 3.125 mg PO BID [facility] Glucagon () 1 mg IM .X1 PRN PRN Reason: Hypoglycemia Heparin Sodium (Porcine) (Heparin Na) 5,000 unit SC Q8 [facility] Propofol (Diprivan) 1,000 mg in 100 mls @ 4.842 mls/hr CONT INF .Q12H [facility]; Protocol Last Admin: 06/12/19 21:35 Dose: 10 mcg/kg/min, 4.8 mls/hr Documented by: Nitroglycerin/Dextrose () 250 mls @ 6 mls/hr CONT INF .[id number] [facility]; Protocol Last Admin: 06/12/19 22:11 Dose: 10 mcg/min, 6 mls/hr Documented by: Fentanyl () 100 mls @ 2.5 mls/hr IV UD [facility]; Protocol Last Admin: 06/13/19 00:25 Dose: 25 mcg/hr, 2.5 mls/hr Documented by: Sodium Chloride () 1,000 mls @ 75 mls/hr IV .[id number] [facility] Last Admin: 06/13/19 00:28 Dose: 75 mls/hr Documented by: Dextrose (Dextrose 10%-Water) 250 mls @ 999 mls/hr IV X1 PRN; Protocol PRN Reason: HYPOGLYCEMIA Lisinopril (Zestril) 2.5 mg PO DAILY MARISSA Methylprednisolone (Solu-Medrol) 40 mg IV Q8 [facility] Assessment/Plan All Active Problems (Last Reviewed 02/22/19 @ 02:51 by Renato Hutson MD) Cholangitis (Acute) Acute ST elevation myocardial infarction (STEMI) of inferior wall (Acute) Severe sepsis (Acute) Sinus tachycardia by electrocardiogram (Acute) Respiratory infection (Acute) Encounter for observation for suspected nervous system disorder (Acute) Takotsubo cardiomyopathy (Acute) Respiratory failure (Acute) Sepsis (Acute) Leukocytosis (Acute) Intractable abdominal pain (Acute) Cocaine abuse (Resolved) Reaction, drug, adverse (Resolved) 54 year old M with past medical history of non-Hodgkin's lymphoma in remission, hypothyroidism, COPD, chronic hepatitis C, bipolar disorder, history of substance abuse who presented to the emergency room with acute onset of shortness of breath. 1. Acute hypoxic respiratory failure, unclear of etiology, likely secondary to acute bronchitis/acute COPD exacerbation Patient has been intubated, on mechanical ventilator, on propofol Would add fentanyl drip, chief clinical dietitian consult Cannot do respiratory panel as not available, will order rapid influenza screen 2. Acute STEMI, clean coronaries on emergency cardiac cath, Takotsubo cardiomyopathy seen 3. Takotsubo cardiomyopathy, EF 25%, will follow up on cardiology recommendations 4. Leukocytosis, likely reactive, 5. Probable bronchitis/acute COPD exacerbation, history of nicotine dependence Start on IV Solu-Medrol, continue breathing treatments 6. Non-Hodgkin's lymphoma in remission 7. Hypothyroidism, will continue med when admission med rec is done 8. Chronic hepatitis C with slight elevation in liver enzymes, will trend in a.m. 9. Polysubstance use disorder, urine tox positive for opiates 10. DVT prophylaxis with heparin subcu Code Visit Inpatient E&M: 23333 Init Hosp L3
[2019-06-13 02:20] LABS: Base Excess -3 mmol/L (-2 to +2); Bicarbonate 23.4 mmol/L (22-26); Blood Gas Specimen Type ART; FI02 100; Mode A-C; O2 Delivery Device Vent; PEEP 5; PO2 377 mmHG (75-100); RR 16; SITE L Radial; SO2 100 % (95-99); Total Carbon Dioxide 25 mmol/L; Vt 467; pCO2 44.6 mmHg (35-45); pH 7.33 (7.35-7.45)
[2019-06-13] MEDS: Propofol 10MG/Ml 1,000 MG/100 ML Bottle 16.9 MG CONT INF (02:25)
[2019-06-13 03:02] LABS: Absolute Lymphocyte Count 5.93 X10^3/uL (0.83-4.51); Absolute Neutrophil Count 25.7 X10^3/uL (2.0-7.7); Basophil# 0.14 X10^3/uL; Basophil% 0.4 % (0-1); Eosinophil# 0.01 X10^3/uL; Hematocrit 47.9 % (40-54); Hemoglobin 14.9 g/dL (13.0-16.5); Lymphocyte # 5.93 X10^3/ul (4.0); Lymphocyte % 16.9 % (19-41); Mean Corp Hgb Conc 31.1 g/dL (32-36); Monocyte% 7.7 % (0-10); NRBC Flagged by Analyzer 0 % (0-5); Neutrophil # 25.69 X10^3/uL (2.7-7.7); Neutrophil % 73.4 % (47-70); POSITIVE COUNT YES; POSITIVE DIFFERENTIAL YES; Platelet Count 229 K/mm3 (150-450); RBC Distribution Width CV 12.3 % (11.6-14.6); RBC Distribution Width SD 46.5 fl (35.1-43.9); Red Blood Count 4.65 M/mm3 (4.6-6.2)
[2019-06-13 03:13] LABS: Differential Indicated SCAN CRITERIA MET
[2019-06-13] MEDS: Furosemide 20 MG/2 ML VIAL IV (03:16)
[2019-06-13 03:47] LABS: ALB/GLOB Ratio 0.6 RATIO (0.9-2.4); AST(SGOT) 75 U/L (15-37); Alanine Aminotransfer ALT/SGPT 53 U/L (16-61); Albumin, Serum 2.1 g/dL (3.2-5.0); Alkaline Phosphatase 76 U/L (45-117); Anion Gap 10 (5-15); BUN 20 mg/dL (7-18); BUN/Creat Ratio 14.8 RATIO (10-20); Calcium,Total 7.5 mg/dL (8.5-10.1); Chloride 107 mmol/L (98-107); Creatinine, Serum 1.35 mg/dL (0.70-1.30); EST Glomerular Filtration Rate 59 mL/min (>60); Est Glom Filt Rate - Afr Amer 71 mL/min (>60); Estimated Creatinine Clearance 55.68 ml/min; Globulin 3.4 g/dL (2.2-4.2); Glucose 82 mg/dL (74-106); Potassium 4.3 mmol/L (3.5-5.1); Protein, Total 5.5 g/dL (6.4-8.2); Sodium Level 136 mmol/L (136-145)
[2019-06-13 04:01] LABS: Differential Comment SCANNED; Macrocytosis 2+
--- NOTE | 2019-06-13 05:48 | RAD_ITS ---
STUDY: X-RAY CHEST REASON FOR EXAM: Male, 54 years old. TACHYPNEA TECHNIQUE: AP portable COMPARISON: 06/12/2019 FINDINGS: Endotracheal tube is present with tip 6 cm from the carolee. Gastric tube tracks into the stomach. The right lung is clear. There is linear left lung base retrocardiac opacity likely due to atelectasis. Normal size heart. Normal mediastinum and rima. Normal visualized pulmonary arteries. Normal visualized aortic arch and descending thoracic aorta. Normal visualized thoracic spine. Normal visualized ribs, clavicles, and shoulders. There is no demonstrated abnormality of the visualized soft tissue structures of the upper abdomen. RAD/Chest 1 View (Portable) IMPRESSION: Stable support lines and tubes. Probable left lung base atelectasis. Electronically Signed: Odell Vasquez, at 6:19 EST Tel , Service support ,
[2019-06-13] MEDS: Heparin Injection (Vial) 5,000 UNIT/ML VIAL 5000 UNIT SC ×3 (06:20→21:40)
[2019-06-13] MEDS: TITRATION PARAMETER CHANGE 1 EACH IV (06:20)
[2019-06-13] MEDS: Propofol 10MG/Ml 1,000 MG/100 ML Bottle 20.1 MG CONT INF ×3 (08:02→21:14)
--- NOTE | 2019-06-13 08:24 | ECHOCS_ITS ---
Reason For Study: Emboli, Eval for endocarditis Procedure This was a 2D Doppler, Color Flow transthoracic echocardiogram. Contrast injection was performed. Exam performed portable in ICU/CCU. Left Ventricle Normal size and thickness. The estimated ejection fraction is 30-35 %. Stage 1 diastolic dysfunction. There are regional wall motion abnormalities as specified. Mid-Anterior : Hypokinetic. Mid-Lateral : Hypokinetic. Infero-Basal: Hypokinetic. Right Ventricle Normal size and thickness. Normal systolic function. Atria Normal left atrium. Normal right atrium. Normal atrial septum. Mitral Valve The mitral valve is structurally normal. No prolapse or stenosis seen. Tricuspid Valve Normal tricuspid valve. Unable to estimate RV systolic pressure due to insufficient tricuspid regurgitant envelope. Aortic Valve Normal aortic valve. Trisinus/trileaflet aortic valve. Pulmonic Valve Normal pulmonic valve. Great Vessels Normal aortic root. Normal arch. Normal inferior vena cava. Inferior vena cava collapse with sniff. Pericardium/Pleural No pericardial effusion. Medication Diluted definity 3ml given slow IV push to enhance endocardial definition. MMode/2D Measurements & Calculations LVIDd: 4.4 cm IVSd: 1.2 cm Ao root diam: 2.7 cm LVIDs: 3.7 cm LVPWd: 1.1 cm RVDd: 2.1 cm FS: 15.9 % LAV(MOD-bp): 18.9 ml LA A4 area: 11.3 cm2 LA dimension(2D): 1.9 cm LAV(MOD-bp) Indexed: 10.5 ml/m2 LAV(MOD-sp2): 12.7 ml LAV(MOD-sp4): 21.7 ml RA A4 area: 6.7 cm2 Doppler Measurements & Calculations MV E max jerson: 33.2 cm/sec Lat Peak E' Jerson: 6.1 cm/sec Med Peak E' Jerson: 3.0 cm/sec MV A max jerson: 36.6 cm/sec E/E' lat: 5.5 E/E' med: 11.0 MV E/A: 0.91 Ao V2 max: 69.8 cm/sec LV V1 max: 65.3 cm/sec PA V2 max: 77.8 cm/sec Ao max P.0 mmHg LV V1 max P.7 mmHg Ao V2 mean: 55.3 cm/sec Ao mean P.3 mmHg Ao V2 VTI: 10.6 cm Interpretation Summary The estimated ejection fraction is 30-35 %. Stage 1 diastolic dysfunction. There are regional wall motion abnormalities as specified. Unable to estimate RV systolic pressure due to insufficient tricuspid regurgitant envelope. Compared to echo report dated 01/11/2011, LV function has gone from 75% to around 30 to 35% with above referenced wall motion abnormalities. The study was technically difficult. Contrast injection was performed. Ordering Physician: Laci Vazquez Referring Physician: Hue Ahuja Performed By: Zuleyka Benavides RDCS, RVT
[2019-06-13] MEDS: fentaNYL drip 100 ML 15 MCG IV ×3 (08:26→21:21)
--- NOTE | 2019-06-13 08:49 | CON.PCM_ITS ---
Problem List (1) Sinus tachycardia by electrocardiogram Status: Acute (2) Respiratory infection Status: Acute (3) Takotsubo cardiomyopathy Status: Acute (4) Respiratory failure Status: Acute Qualifiers: Chronicity: acute Respiratory failure complication: hypoxia Qualified Code(s): J96.01 - Acute respiratory failure with hypoxia (5) Avascular necrosis of left femoral head Status: Chronic (6) Rheumatoid arthritis Status: Chronic (7) Nicotine dependence Status: Chronic (8) Old myocardial infarct Status: Chronic Reason for Consult Date of Consultation: 06/13/19 Reason for Consultation: Respiratory failure History of Present Illness: The patient is a 54 year old M, with past medical history listed below, who presented to [facility] on 06/12/2019 secondary to severe respiratory distress. Patient reportedly was diaphoretic, cyanotic and frothy sputum on presentation. Patient reportedly had had a fever the day prior to presentation with cough. Patient's had left to go to work, but his brother went over and found him pacing in the restroom grunting and responding no to everything. On presentation to the ER, patient was intubated secondary to cyanosis with rapid sequence. EKG showed a possible ST elevation [place] in the inferolateral leads. Patient was taken directly to the [facility], but findings were more consistent with Takatsubo cardiomyopathy and patient was transferred back to the intensive care unit for further evaluation. No family is at the bedside to provide additional information at this time. Reportedly, patient has been receiving IV morphine from his . Patient does have a history of heroin abuse, but was reportedly clean for 8 years. Patient was noted to have some track lazar. Patient has spiked fevers overnight and blood pressures have been marginal, but no pressors have been required. Patient's oxygenation has been doing okay. Patient continues to be difficult to sedate. Unable to obtain a review of systems secondary to acute condition. Past Medical History Past Medical History (Chronic Problems): Chronic Problems (Last Reviewed 02/22/19 @ 02:51 by Renato Hutson MD) Avascular necrosis of left femoral head (Chronic) Rheumatoid arthritis (Chronic) Nicotine dependence (Chronic) Old myocardial infarct (Chronic) Medical History: Medical History (Last Reviewed 02/22/19 @ 02:51 by Renato Hutson MD) Nicotine dependence (Chronic) F17.200 Old myocardial infarct (Chronic) I25.2 Bipolar disorder F31.9 Hepatitis C, chronic B18.2 Hypothyroidism E03.9 NH lymphoma C85.90 Panic anxiety syndrome F41.0 chronic obstructive lung disease Allergies methotrexate Adverse Reaction (Verified 06/12/19 22:07) Hives,Rash,Lesions naproxen [From Naprosyn] Adverse Reaction (Verified 06/12/19 22:07) Upset Stomach BEE VENOM Allergy (Uncoded 06/12/19 22:07) Anaphylaxis ROOT BEER Allergy (Uncoded 06/12/19 22:07) Hives Home Medications: Ambulatory Orders Medication Instructions Recorded Levothyroxine [Synthroid] 112 mcg PO DAILY 07/10/16 [place] Carbonate [[place] 300 mg PO DAILY 07/10/16 Carbonate ER] Albuterol Sulfate [Proventil Hfa] 6.7 gm IH Q4H PRN 10/21/16 Gabapentin [Neurontin] 900 mg PO TIDCM 10/21/16 clindamycin phosphate 1 % lotion 1 unit TOPICAL DAILY 30 Days #120 03/21/18 ml cyanocobalamin (vitamin B-12) 1,000 syr IM QMONTH 30 Days #1 ml 03/21/18 1,000 mcg/mL injection solution Buprenorphine [Butrans 5 Mcg/Hr] 10 mcg TD QWEEK 02/14/19 Fluticasone/Vilanterol [Breo 1 each INHALATION DAILY 02/14/19 Ellipta 200-25 Mcg INH] Ginkgo Biloba 250 mg PO DAILY 02/14/19 Montelukast [Singulair] 10 mg PO QHS 02/14/19 Ginseng 250 mg PO DAILY 02/27/19 Epi Pen (for allergic rxn) 0.3 mg IM X1 06/13/19 predniSONE tablet 60 mg PO DAILY 06/13/19 Surgical History: Surgical History (Last Reviewed 02/22/19 @ 02:51 by Renato Hutson MD) H/O arthroscopic knee surgery Z98.890 H/O total hip arthroplasty Z96.649 History of appendectomy Z90.49 History of left heart catheterization Z98.890 facial reconstructive surgery Surgical History: appendectomy, arthroscopy, knee, cholecystectomy, total hip arthroplasty, - - Facial reconstructive surgery. Psychiatric History: Bipolar Lives: Spouse/ Significant Other Smoking Status: Former smoker Tobacco Use: Cigarettes Alcohol: Rare Drugs: - - Old records history of drug use - *Family History Maternal History Items: Cancer Paternal History Items: Cancer Review of Systems Unable to obtain accurate/complete ROS d/t: See HPI Patient Problems: Active and Suspected Problems (Last Reviewed 02/22/19 @ 02:51 by Renato Hutson MD) Acute ST elevation myocardial infarction (STEMI) of inferior wall (Acute) Severe sepsis (Acute) Sinus tachycardia by electrocardiogram (Acute) Respiratory infection (Acute) Encounter for observation for suspected nervous system disorder (Acute) Takotsubo cardiomyopathy (Acute) Respiratory failure (Acute) Objective: All imaging was reviewed. Repeat chest x-ray shows no acute infiltrate. Patient does have supportive devices in appropriate positions. There is a questionable hiatal hernia, but no laterals available for review. Catheterization report indicates an EF of 25% without significant endovascular defects - Physical Exam Vitals/I&O's: Vital Signs Temp Pulse Resp BP Pulse Ox 38.4 C H 117 H 28 H 90/67 97 06/13/19 05:00 06/13/19 06:45 06/13/19 06:45 06/13/19 06:00 06/13/19 06:45 Oxygen Flow Rate (L/min) 15 Oxygen Delivery Method Mechanical Ventilator Weight: 74.4 kg Body Mass Index (BMI) 27.3 Finger Stick Blood Glucose 82 Intake and Output for Last 24 Hours 06/11/19 06/12/19 06/13/19 23:59 23:59 23:59 Intake Total 21.44 / 24.96 856.58 / 856.58 Output Total 675 / 675 Balance 21.44 / 24.96 181.58 / 181.58 General: No apparent distress - Good vent synchrony., - - Intubated and sedated. RASS -2. Appears older than stated age. HEENT: Atraumatic, PERRLA, EOMI, Normocephalic, - - No scleral icterus or injection noted Oral: Moist Mucosa, No Gingival or Mucosal Lesions/ Ulcerations Neck: Supple, No JVD, No Nodes, Trachea Midline Lungs: No rhonchi, No wheeze, No rales, Diminished, - - Symmetric expansion. No dullness to percussion. Cardiovascular: Normal S1, Normal S2, No murmurs, No rub noted, No Gallop, Tachycardic Abdomen: Bowel Sounds Present, Soft, Non Tender, Distended - Slightly Extremities: No clubbing, No cyanosis, No edema, Capillary Refill Less than 3 Seconds Skin: - - Multiple papules and ulcerations superficially noted throughout in various stages of healing. Track lazar noted in the antecubitus area. Musculoskeletal: No Tenderness to Palpation of Joints or Extremities Lymphatic: No Cervical, Supraclavicular, or Inguinal Adenopathy Neurological: Neuro grossly intact - Nonfocal neurologic exam. Patient does have significant difficulty with vent synchrony associated with suctioning. Psych/Mental Status: Flat Affect Microbiology Past 72 Hours 06/13/19 02:35 Mucosa - Nasopharyngeal Influenza Types A,B Direct FA (EKM) - Final Laboratory Results 06/12/19 21:13: POC Glucose 82 06/12/19 21:20: WBC 45.7 H*, RBC 5.08, Hgb 16.2, Hct 50.9, MCV 100.2 H, MCH 31.9, MCHC 31.8 L, RDW Std Deviation 45.4 H, RDW Coeff of Re 12.0, Plt Count 308, MPV 8.8, Immature Gran % (Auto) 2.200 H, Neut % (Auto) 64.3, Lymph % (Auto) 25.2, Bland % (Auto) 7.8, Eos % (Auto) 0.0, Baso % (Auto) 0.5, Absolute Neuts (auto) 29.4 H, Absolute Lymphs (auto) 11.51 H, Nucleated RBC % 0.1, Differential Comment , Diff Path Review May foll, Reactive Lymphocytes 1+, Platelet Estimate ADEQUATE, RBC Morphology NORM C+C 06/12/19 21:20: PT 12.7, INR 1.0, APTT 28.7 06/12/19 21:20: Sodium 137, Potassium 4.3, Chloride 107, Carbon Dioxide 21.0, Anion Gap 9, BUN 14, Creatinine 1.25, Estim Creat Clear Calc 73.63, Est GFR (MDRD) Af Amer 78, Est GFR (MDRD) Non-Af 64, BUN/Creatinine Ratio 11.2, Glucose 75, Calcium 8.6, Total Bilirubin 0.70, AST 74 H, ALT 63 H, Alkaline Phosphatase 98, Troponin I 0.052 H, Total Protein 6.8, Albumin 2.9 L, Globulin 3.9, Albumin/Globulin Ratio 0.7 L, Lipase 71 L 06/12/19 21:20: B-Natriuretic Peptide 83.5 06/12/19 22:00: Urine Color Yellow, Urine Clarity Clear, Urine pH 6.0, Ur Specific [place] 1.020, Urine Protein 100 H, Urine Glucose (UA) Normal, Urine Ketones 150 H, Urine Occult Blood 150 H, Urine Nitrite Negative, Urine Bilirubin 1 H, Urine Urobilinogen Normal, Ur Leukocyte Esterase Negative, Urine RBC 0-5 SEEN, Urine WBC 0-5 SEEN, Ur Squamous Epith Cells 0 SEEN, Urine Bacteria 0 SEEN, Hyaline Casts 0-5 SEEN, Urine Mucus 1+ 06/12/19 22:00: Urine Opiates Screen POSITIVE H, Urine Methadone Screen NEGATIVE, Ur Barbiturates Screen NEGATIVE, Ur Phencyclidine Scrn NEGATIVE, Ur Amphetamines Screen NEGATIVE, U Methamphetamin-MDMA NEGATIVE, U Benzodiazepines Scrn NEGATIVE, Urine Cocaine Screen NEGATIVE, U Cannabinoids Screen NEGATIVE, Ur Drug Screen Comment 06/13/19 02:12: Specimen Type ART, Sample Site L Radial, pH 7.33 L, Bicarbonate Actual 23.4, POC Total CO2 25, Base Excess -3 L, O2 Saturation 100 H, O2 % 100, ABG pCO2 44.6, ABG pO2 377 H*, Leland Test NA, Respiration Rate 16, O2 Delivery Device Vent, Minute Volume 8.00, Vent Mode A-C, Tidal Volume 467, POC PEEP 5, Blood Gas Notified Whom ICU 06/13/19 02:46: WBC 35.0 H*, RBC 4.65, Hgb 14.9, Hct 47.9, MCV 103.0 H, MCH 32.0, MCHC 31.1 L, RDW Std Deviation 46.5 H, RDW Coeff of Re 12.3, Plt Count 229, MPV 9.0, Immature Gran % (Auto) 1.600 H, Neut % (Auto) 73.4 H, Lymph % (Auto) 16.9 L, Bland % (Auto) 7.7, Eos % (Auto) 0.0, Baso % (Auto) 0.4, Absolute Neuts (auto) 25.7 H, Absolute Lymphs (auto) 5.93 H, Nucleated RBC % 0, Differential Comment SCANNED, Diff Path Review May foll, Macrocytosis 2+ 06/13/19 02:46: Sodium 136, Potassium 4.3, Chloride 107, Carbon Dioxide 19.0 L, Anion Gap 10, BUN 20 H, Creatinine 1.35 H, Estim Creat Clear Calc 55.68, Est GFR (MDRD) Af Amer 71, Est GFR (MDRD) Non-Af 59 L, BUN/Creatinine Ratio 14.8, Glucose 82, Calcium 7.5 L, Total Bilirubin 0.80, AST 75 H, ALT 53, Alkaline Phosphatase 76, Total Protein 5.5 L, Albumin 2.1 L, Globulin 3.4, Albumin/Globulin Ratio 0.6 L Current Medications Acetaminophen (Tylenol) 650 mg RECTAL Q4H PRN PRN PRN Reason: Pain Score 1-10/Temp > 100.7 F Albuterol Sulfate (Ventolin Aerosols) 2.5 mg INHALATION Q2H PRN PRN PRN Reason: SOB/Wheezing Carvedilol (Coreg) 3.125 mg PO BID MARISSA Glucagon () 1 mg IM .X1 PRN PRN Reason: Hypoglycemia Heparin Sodium (Porcine) (Heparin Na) 5,000 unit SC Q8 [facility] Last Admin: 06/13/19 06:20 Dose: 5,000 unit Documented by: Propofol (Diprivan) 1,000 mg in 100 mls @ 4.464 mls/hr CONT INF .Q12H [facility]; Protocol Last Admin: 06/13/19 08:02 Dose: 45 mcg/kg/min, 20.1 mls/hr Documented by: Nitroglycerin/Dextrose () 250 mls @ 6 mls/hr CONT INF .[id number] [facility]; Protocol Last Titration: 06/13/19 01:00 Dose: 0 mcg/min, 0 mls/hr Documented by: Fentanyl () 100 mls @ 2.5 mls/hr IV UD [facility]; Protocol Last Admin: 06/13/19 08:26 Dose: 150 mcg/hr, 15 mls/hr Documented by: Sodium Chloride () 1,000 mls @ 75 mls/hr IV .[id number] [facility] Last Infusion: 06/13/19 06:26 Dose: 75 mls/hr Documented by: Dextrose (Dextrose 10%-Water) 250 mls @ 999 mls/hr IV X1 PRN; Protocol PRN Reason: HYPOGLYCEMIA Sodium Chloride () 250 mls @ 15 mls/hr IV .[id number] PRN PRN Reason: Saline Flush Sodium Chloride () 250 mls @ 15 mls/hr IV .[id number] PRN PRN Reason: Additional IVPB Infusion Ceftriaxone Sodium (Rocephin) 1 gm in 50 mls @ 100 mls/hr IV Q24 [facility] Lisinopril (Zestril) 2.5 mg PO DAILY [facility] Methylprednisolone (Solu-Medrol) 40 mg IV Q8 [facility] Last Admin: 06/13/19 06:20 Dose: 40 mg Documented by: Sodium Chloride () 10 - 40 ml IV UD PRN PRN Reason: SALINE FLUSH Clinical Impression(s) from Imaging Studies Chest X-Ray 06/12/19 21:25 IMPRESSION: No acute thoracic pathology. Line and tube placement as above. Electronically Signed: Kvng Sarmiento, at 21:42 EST Tel , Service support , Chest X-Ray 06/13/19 05:48 IMPRESSION: Stable support lines and tubes. Probable left lung base atelectasis. Electronically Signed: Odell Vasquez, at 6:19 EST Tel , Service support , Assessment/Plan Active and Suspected Problems (Last Reviewed 02/22/19 @ 02:51 by Renato Hutson MD) Acute ST elevation myocardial infarction (STEMI) of inferior wall (Acute) Severe sepsis (Acute) Sinus tachycardia by electrocardiogram (Acute) Respiratory infection (Acute) Encounter for observation for suspected nervous system disorder (Acute) Takotsubo cardiomyopathy (Acute) Respiratory failure (Acute) RECOMMENDATIONS: 1. Continue empiric antibiotics 2. Propofol and fentanyl for vent synchrony 3. Potential Cardizem versus beta-consuelo per cardiology 4. Obtain echocardiogram for possible endocarditis 5. Await results of blood cultures IMPRESSIONS: 1. Acute hypoxic respiratory failure Unclear etiology at this time. Patient was tachycardic and hypertensive on presentation, so flash pulmonary edema would be a possibility. Patient's heart catheterization showed no endovascular issues, but EF was reduced to 25%. Patient appears to be oxygenating better at this time, but is having fevers. This would not be suggestive of CHF as an etiology. Patient may also have embolic phenomenon secondary to endocarditis given reported IV drug use. Patient is on appropriate antibiotics at this time. Agree with Solu-Medrol and bronchodilator therapy. Spontaneous awakening and breathing trials per protocol. 2. Takotsubo cardiomyopathy/acute systolic congestive heart failure Cardiology is following. Patient did have a heart catheterization suggestive of clean coronary arteries. Patient remains significantly tachycardic and may benefit from rate control. Would defer to cardiology. Chest x-ray does not show any significant infiltrates at this time, so doubt lobar pneumonia. Cannot exclude micro emboli. Patient is on appropriate antibiotics. 3. History of non-Hodgkin's lymphoma/leukocytosis Patient with significant leukocytosis on presentation. This does appear to be improving with current therapy. Unclear if this is secondary to a stress response, acute infection or possible recurrence of Hodgkin's lymphoma. Patient will need to be watched carefully for thrombotic complications. 4. Possible sepsis Patient does have significant leukocytosis and fever. Patient's blood pressure has been okay, but tachycardic. Tachycardia may be secondary to primary cardiac condition, but patient also is at risk for infection. Unclear if this is secondary to endocarditis given recent IV drug use versus occult abscess. Will obtain a CT scan of the abdomen for further evaluation. TIME: 37 minutes critical care time spent addressing patient's acute hypoxic respiratory failure, sepsis, cardiomyopathy, review of all data and collaboration with care team (8 AM to 9 AM) Code Visit 9xxxx: [id number] Critical care first hour
--- NOTE | 2019-06-13 09:34 | CT_ITS ---
STUDY: CT ABDOMEN AND PELVIS WITH CONTRAST REASON FOR EXAM: Male, 54 years old. R/O ABSCESS/INFECTION PROCESS -- HX-NHL,COPD,HEP C, SUBSTANCE Abuse, bipolar RADIATION DOSAGE (If Supplied By Facility): CTDIvol = ( 16.17 ) mGy, DLP = ( 967.67 ) mGycm TECHNIQUE: Transaxial images were obtained from the dome of the diaphragm to the symphysis pubis without oral contrast. IV 100mL Isovue-300 was administered. Sagittal and coronal images were reconstructed. Individualized dose optimization techniques were used for this CT. COMPARISON: Comparison is made with prior examination dated March 03, 2019. FINDINGS: An orogastric tube is seen. Focal infiltrate and/or atelectasis at the left lung base. Coronary artery calcification. 1 cm cyst in the dome of the right lobe of the liver. Stable 2 cm cyst with rim like calcification along its posterior aspect in segment #4 of the liver. Pneumobilia of the intrahepatic biliary ducts. The patient is status post cholecystectomy. A biliary stent is seen within the common bile duct. Normal spleen. Normal pancreas. Normal bilateral adrenal glands. Normal right kidney. Normal left kidney. Normal visualized stomach. Normal small intestine. Normal colon. There is non-visualization of the appendix. There is scattered atherosclerotic calcification of the abdominal aorta, without a demonstrated aneurysm. Normal inferior vena cava. There is borderline retroperitoneal lymphadenopathy with enlarged nodes no greater than 10mm in the short axis diameter. A Domínguez catheter is seen within the urinary bladder. The bladder is empty. Normal abdominal wall. Normal osseous structures. The patient is status post left total hip replacement. CT/Abdomen/Pelvis WITH Contrast IMPRESSION: Biliary stent is seen within the common bile duct. Pneumobilia of the biliary tree. Focal atelectasis and/or infiltrate at the left lung base. Electronically Signed: Davis Honeycutt, at 13:29 EST , Service support ,
--- NOTE | 2019-06-13 09:50 | PCM.PN.HOSP ---
Patient Problems: Active and Suspected Problems (Last Reviewed 02/22/19 @ 02:51 by Renato Hutson MD) Acute ST elevation myocardial infarction (STEMI) of inferior wall (Acute) Severe sepsis (Acute) Sinus tachycardia by electrocardiogram (Acute) Respiratory infection (Acute) Encounter for observation for suspected nervous system disorder (Acute) Takotsubo cardiomyopathy (Acute) Respiratory failure (Acute) Subjective: Patient seen and examined. He was admitted through the ED with a complaint of shortness of breath was also found walking around in his room naked and grunting. He did appear to be in respiratory distress. The EMS was called and he was brought into the ED. He was intubated in the ED on account of respiratory distress with cyanosis. EKG done showed acute ST elevation in the cardiomyopathy he was subsequently admitted to the ICU. Patient seen this morning. He remains intubated and set aside. Diarrhea is a score is -4. Unable to do review of systems on account of sedation. Labs and vitals reviewed. He had fever with temperature peaking at 101.1 Fahrenheit and remains tachycardic with heart rate on 115. Creatinine has trended up slightly to 1.35 from 1.25 on admission. WBC was 45.7 on admission and this trended down to 35 today. Vitals/I&O's: Vital Signs Temp Pulse Resp BP Pulse Ox 101.1 F H 115 H 25 H 94/64 97 06/13/19 08:00 06/13/19 09:00 06/13/19 09:00 06/13/19 09:00 06/13/19 09:00 Oxygen Flow Rate (L/min) 15 Oxygen Delivery Method Mechanical Ventilator Weight: 164 lb 0.383 oz Body Mass Index (BMI) 27.3 Finger Stick Blood Glucose 82 Intake and Output for Last 24 Hours 06/11/19 06/12/19 06/13/19 23:59 23:59 23:59 Intake Total 21.44 / 24.96 1077.01 / 1077.01 Output Total 675 / 675 Balance 21.44 / .96 402.01 / 402.01 General: - - intubated, sedated. RASS score of -4 HEENT: Atraumatic, EOMI, Normocephalic Oral: Dry Mucosa Neck: Supple Lungs: - - decreased breath sounds bibasally, no wheezes or crackles. intubated and sedated Cardiovascular: Normal S1, Normal S2, No murmurs, Tachycardic Abdomen: Bowel Sounds Present, Soft, Non Tender, Non-Distended, No Hepato-splenomegaly Extremities: No clubbing, No cyanosis, No edema, Capillary Refill Less than 3 Seconds Skin: - - multiple track lazar over UEs and LEs; superficial excoriations over chest and abdomen Musculoskeletal: No Tenderness to Palpation of Joints or Extremities Lymphatic: No Cervical, Supraclavicular, or Inguinal Adenopathy Neurological: - - intubated, sedated, RASS score is -4 Microbiology Past 72 Hours 06/13/19 02:35 Mucosa - Nasopharyngeal Influenza Types A,B Direct FA (KEM) - Final Laboratory Results 06/12/19 21:13: POC Glucose 82 06/12/19 21:20: WBC 45.7 H*, RBC 5.08, Hgb 16.2, Hct 50.9, MCV 100.2 H, MCH 31.9, MCHC 31.8 L, RDW Std Deviation 45.4 H, RDW Coeff of Re 12.0, Plt Count 308, MPV 8.8, Immature Gran % (Auto) 2.200 H, Neut % (Auto) 64.3, Lymph % (Auto) 25.2, Hidalgo % (Auto) 7.8, Eos % (Auto) 0.0, Baso % (Auto) 0.5, Absolute Neuts (auto) 29.4 H, Absolute Lymphs (auto) 11.51 H, Nucleated RBC % 0.1, Differential Comment , Diff Path Review May foll, Reactive Lymphocytes 1+, Platelet Estimate ADEQUATE, RBC Morphology NORM C+C 06/12/19 21:20: PT 12.7, INR 1.0, APTT 28.7 06/12/19 21:20: Sodium 137, Potassium 4.3, Chloride 107, Carbon Dioxide 21.0, Anion Gap 9, BUN 14, Creatinine 1.25, Estim Creat Clear Calc 73.63, Est GFR (MDRD) Af Amer 78, Est GFR (MDRD) Non-Af 64, BUN/Creatinine Ratio 11.2, Glucose 75, Calcium 8.6, Total Bilirubin 0.70, AST 74 H, ALT 63 H, Alkaline Phosphatase 98, Troponin I 0.052 H, Total Protein 6.8, Albumin 2.9 L, Globulin 3.9, Albumin/Globulin Ratio 0.7 L, Lipase 71 L 06/12/19 21:20: B-Natriuretic Peptide 83.5 06/12/19 22:00: Urine Color Yellow, Urine Clarity Clear, Urine pH 6.0, Ur Specific Perry 1.020, Urine Protein 100 H, Urine Glucose (UA) Normal, Urine Ketones 150 H, Urine Occult Blood 150 H, Urine Nitrite Negative, Urine Bilirubin 1 H, Urine Urobilinogen Normal, Ur Leukocyte Esterase Negative, Urine RBC 0-5 SEEN, Urine WBC 0-5 SEEN, Ur Squamous Epith Cells 0 SEEN, Urine Bacteria 0 SEEN, Hyaline Casts 0-5 SEEN, Urine Mucus 1+ 06/12/19 22:00: Urine Opiates Screen POSITIVE H, Urine Methadone Screen NEGATIVE, Ur Barbiturates Screen NEGATIVE, Ur Phencyclidine Scrn NEGATIVE, Ur Amphetamines Screen NEGATIVE, U Methamphetamin-MDMA NEGATIVE, U Benzodiazepines Scrn NEGATIVE, Urine Cocaine Screen NEGATIVE, U Cannabinoids Screen NEGATIVE, Ur Drug Screen Comment 06/13/19 02:12: Specimen Type ART, Sample Site L Radial, pH 7.33 L, Bicarbonate Actual 23.4, POC Total CO2 25, Base Excess -3 L, O2 Saturation 100 H, O2 % 100, ABG pCO2 44.6, ABG pO2 377 H*, Leland Test NA, Respiration Rate 16, O2 Delivery Device Vent, Minute Volume 8.00, Vent Mode A-C, Tidal Volume 467, POC PEEP 5, Blood Gas Notified Whom ICU 06/13/19 02:46: WBC 35.0 H*, RBC 4.65, Hgb 14.9, Hct 47.9, MCV 103.0 H, MCH 32.0, MCHC 31.1 L, RDW Std Deviation 46.5 H, RDW Coeff of Re 12.3, Plt Count 229, MPV 9.0, Immature Gran % (Auto) 1.600 H, Neut % (Auto) 73.4 H, Lymph % (Auto) 16.9 L, Hidalgo % (Auto) 7.7, Eos % (Auto) 0.0, Baso % (Auto) 0.4, Absolute Neuts (auto) 25.7 H, Absolute Lymphs (auto) 5.93 H, Nucleated RBC % 0, Differential Comment SCANNED, Diff Path Review May foll, Macrocytosis 2+ 06/13/19 02:46: Sodium 136, Potassium 4.3, Chloride 107, Carbon Dioxide 19.0 L, Anion Gap 10, BUN 20 H, Creatinine 1.35 H, Estim Creat Clear Calc 55.68, Est GFR (MDRD) Af Amer 71, Est GFR (MDRD) Non-Af 59 L, BUN/Creatinine Ratio 14.8, Glucose 82, Calcium 7.5 L, Total Bilirubin 0.80, AST 75 H, ALT 53, Alkaline Phosphatase 76, Total Protein 5.5 L, Albumin 2.1 L, Globulin 3.4, Albumin/Globulin Ratio 0.6 L Diagnostic Data Chest X-Ray 06/13/19 05:48 IMPRESSION: Stable support lines and tubes. Probable left lung base atelectasis. Electronically Signed: Odell Vasquez, at 6:19 EST Tel , Service support , Current Medications Acetaminophen (Tylenol Liquid) 650 mg NG Q4H PRN PRN PRN Reason: Pain or Fever Albuterol Sulfate (Ventolin Aerosols) 2.5 mg INHALATION Q2H PRN PRN PRN Reason: SOB/Wheezing Carvedilol (Coreg) 3.125 mg PO BID MARISSA Glucagon () 1 mg IM .X1 PRN PRN Reason: Hypoglycemia Heparin Sodium (Porcine) (Heparin Na) 5,000 unit SC Q8 [facility] Last Admin: 06/13/19 06:20 Dose: 5,000 unit Documented by: Propofol (Diprivan) 1,000 mg in 100 mls @ 4.464 mls/hr CONT INF .Q12H [facility]; Protocol Last Titration: 06/13/19 09:00 Dose: 45 mcg/kg/min, 20.1 mls/hr Documented by: Nitroglycerin/Dextrose () 250 mls @ 6 mls/hr CONT INF .[id number] [facility]; Protocol Last Titration: 06/13/19 09:00 Dose: 0 mcg/min, 0 mls/hr Documented by: Fentanyl () 100 mls @ 2.5 mls/hr IV UD [facility]; Protocol Last Titration: 06/13/19 09:00 Dose: 150 mcg/hr, 15 mls/hr Documented by: Sodium Chloride () 1,000 mls @ 75 mls/hr IV .[id number] MARISSA Last Infusion: 06/13/19 09:00 Dose: 75 mls/hr Documented by: Dextrose (Dextrose 10%-Water) 250 mls @ 999 mls/hr IV X1 PRN; Protocol PRN Reason: HYPOGLYCEMIA Sodium Chloride () 250 mls @ 15 mls/hr IV .[id number] PRN PRN Reason: Saline Flush Sodium Chloride () 250 mls @ 15 mls/hr IV .[id number] PRN PRN Reason: Additional IVPB Infusion Ceftriaxone Sodium (Rocephin) 1 gm in 50 mls @ 100 mls/hr IV Q24 [facility] Lisinopril (Zestril) 2.5 mg PO DAILY [facility] Methylprednisolone (Solu-Medrol) 40 mg IV Q8 [facility] Last Admin: 06/13/19 06:20 Dose: 40 mg Documented by: Sodium Chloride () 10 - 40 ml IV UD PRN PRN Reason: SALINE FLUSH STROKE Vital Signs/Narrative: Vital Signs Temp Pulse Resp BP Pulse Ox 06/13/19 09:00 115 H 25 H 94/64 97 06/13/19 08:00 101.1 F H 115 H 28 H 108/71 98 06/13/19 07:00 117 H 26 H 93/78 97 06/13/19 06:45 117 H 28 H 97 06/13/19 06:00 117 H 29 H 90/67 97 Medical Necessity - Tobacco Use Smoking Status: Former smoker Tobacco Use: Cigarettes Assessment/Plan All Active Problems (Last Reviewed 02/22/19 @ 02:51 by Renato Hutson MD) Cholangitis (Acute) Acute ST elevation myocardial infarction (STEMI) of inferior wall (Acute) Severe sepsis (Acute) Sinus tachycardia by electrocardiogram (Acute) Respiratory infection (Acute) Encounter for observation for suspected nervous system disorder (Acute) Takotsubo cardiomyopathy (Acute) Respiratory failure (Acute) Sepsis (Acute) Leukocytosis (Acute) Intractable abdominal pain (Acute) Cocaine abuse (Resolved) Reaction, drug, adverse (Resolved) 1. Acute hypoxic respiratory failure Etiology is unclear. May have been due to the Takotsubo cardiomyopathy. Currently intubated and sedated. Critical care on board. Continue breathing treatments. Rapid influenza screen was negative. on IV solumedrol 2. Sepsis SIRS criteria is 4/4-tachycardia and fever as well as tachypnea and leucocytosis WBC was 45.7 on admission and is now 35. Patient currently on ceftriaxone and metronidazole He does have a history of non-Hodgkin's lymphoma so the significant leukocytosis could be due to that though looking at the differential, it is lymphocyte predominant. Given patient's history of IV drug abuse and admitting that she had been giving him IV morphine at home, he is at risk of septicemia. He could even have embolic phenomenon from endocarditis given IV drug use. Critical care on board. Blood cultures pending. 2D echo ordered. CT of the abdomen and pelvis pending to rule out any infectious process. 3. Takotsubo cardiomyopathy STEMI alert was called on admission on account of ST elevation in inferior leads. However coronary arteries were clean though he had EF of about 25%. Patient's been suggestive of Takotsubo cardiomyopathy. She remains tachycardic. Cardiology on board. On lisinopril 4. History of IV drug abuse apparently, patient's has been shooting him up with morphine at home. He has numerous track lazar all over his extremities. 2D echo pending. Blood cultures pending. On ceftriaxone and metronidazole, as per critical care urine tox was positive for opiates. 5. Non-Hodgkin's lymphoma: In remission. BBC elevated to 45 and now down to 35. Does have a history of chronically elevated WBCs likely due to non-Hodgkin's lymphoma. Will monitor. 6. Hypothyroidism: on synthroid 7. Chronic hepatitis C: Treatment na?ve. Will monitor. VT prophylaxis: Heparin Code Visit Inpatient E&M: [id number] [facility] Hosp L3
[2019-06-13] MEDS: Ceftriaxone 1 GM/50 ML BAG IV (10:07)
[2019-06-13] MEDS: Carvedilol 3.125 MG TABLET PO ×2 (10:08→21:39)
[2019-06-13] MEDS: Acetaminophen 650 MG/20 ML UDC NG ×2 (10:08→16:09)
[2019-06-13] MEDS: Albuterol 2.5 MG/3 ML VIAL.NEB. INHALATION (13:13)
--- NOTE | 2019-06-13 13:30 | CASEMGMT ---
RN CM note: To room to complete RN CM admission assessment. Pt remains intubated/sedated. not present at this time. RN CM to attempt later today or tomorrow. Amalia JACKSONN RN CM
[2019-06-13 13:51] LABS: Pathologist Review Reviewed
[2019-06-13 13:53] LABS: Pathologist Review Reviewed
[2019-06-13 14:01] LABS: Bedside Glucose 78 mg/dL (70-110)
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
[2019-06-13] MEDS: Propofol 10MG/Ml 1,000 MG/100 ML Bottle 22.3 MG CONT INF (16:07)
--- NOTE | 2019-06-13 16:50 | CHAPLAIN ---
Type of Pastoral Visit _x__ Initial Visit ___ Follow-up Visit ___ On-call Visit ___ General Patient Visit ___ Spiritual Assessment _x__ Family Conference ___ Bereavement ___ Rapid Response ___ Code Blue ___ Other (describe below) Pastoral Care Referral From ___ Patient _x__ Family ___ Nurse ___ Physician ___ Civil Engineer ___ Community Nutrition Educator ___ Other (describe below) Sacrament/Intervention _x__ Active listening ___ Anointing ___ Scientologist ___ Bereavement ___ Communion _x__ Eulalia exploration ___ ___ Life review _x__ Prayer ___ Reconciliation ___ Sacrament of Sick _x__ Supportive presence ___ Wedding ___ Other (describe below) Pastoral Comments was available to family members for spiritual and emotional support; family has requested contact with [facility] [employer]er David Finch who is a friend of the patient and this was done; was present for family conference with ; offered presence and a prayer
[2019-06-13] MEDS: Vital AF 1.2 Cal Liquid 1,000 ML 70 ML GT (17:51)
[2019-06-13 18:40] LABS: Bedside Glucose 93 mg/dL (70-110)
--- NOTE | 2019-06-13 20:06 | CPS ---
critical results cortexted to Dr. Vazquez
[2019-06-13] MEDS: Chlorhexidine 15 ML PO (21:44)
[2019-06-14] VITALS (34 sets, daily range): BP systolic 77–119; BP diastolic 52–74; PULSE 56–88; RESP 16–27; TEMP 36.6–38; O2SAT 94–100
[2019-06-14 00:40] LABS: Bedside Glucose 110 mg/dL (70-110)
[2019-06-14] MEDS: Propofol 10MG/Ml 1,000 MG/100 ML Bottle 22.3 MG CONT INF ×2 (01:05→05:34)
[2019-06-14] MEDS: CHLORHEXIDINE GLUC 2% CLOTH 1 EACH TOWELETTE TOPICAL (01:07)
[2019-06-14] MEDS: fentaNYL drip 100 ML 17.5 MCG IV ×3 (02:38→23:32)
[2019-06-14 04:10] LABS: Absolute Lymphocyte Count 4.43 X10^3/uL (0.83-4.51); Absolute Neutrophil Count 11.9 X10^3/uL (2.0-7.7); Basophil# 0.02 X10^3/uL; Basophil% 0.1 % (0-1); Hematocrit 39.2 % (40-54); Hemoglobin 12.5 g/dL (13.0-16.5); Lymphocyte # 4.43 X10^3/ul (4.0); Lymphocyte % 26.2 % (19-41); Mean Corp Hgb Conc 31.9 g/dL (32-36); Mean Corpuscular Hgb 31.6 pg (27.0-32.0); Mean Corpuscular Volume 99.2 fL (80-94); Mean Platelet Vol. 9.1 fl (6.2-12.0); Monocyte# 0.37 X10^3/uL; Monocyte% 2.2 % (0-10); NRBC Flagged by Analyzer 0 % (0-5); Neutrophil # 11.88 X10^3/uL (2.7-7.7); Neutrophil % 70.2 % (47-70); POSITIVE MORPHOLOGY YES; Platelet Count 183 K/mm3 (150-450); RBC Distribution Width CV 12.3 % (11.6-14.6); RBC Distribution Width SD 45.1 fl (35.1-43.9); Red Blood Count 3.95 M/mm3 (4.6-6.2); White Blood Count 16.9 K/mm3 (4.4-11.0)
[2019-06-14 04:16] LABS: Differential Indicated SCAN CRITERIA MET
[2019-06-14 05:03] LABS: Differential Comment SCANNED
[2019-06-14 05:11] LABS: Anion Gap 7 (5-15); BUN 19 mg/dL (7-18); BUN/Creat Ratio 16.8 RATIO (10-20); Calcium,Total 7.5 mg/dL (8.5-10.1); Chloride 106 mmol/L (98-107); Creatinine, Serum 1.13 mg/dL (0.70-1.30); EST Glomerular Filtration Rate 72 mL/min (>60); Est Glom Filt Rate - Afr Amer 88 mL/min (>60); Estimated Creatinine Clearance 66.52 ml/min; Glucose 142 mg/dL (74-106); Potassium 4.6 mmol/L (3.5-5.1); Sodium Level 138 mmol/L (136-145)
[2019-06-14] MEDS: 0.9% Normal Saline 1,000 ML 75 ML IV (05:19)
[2019-06-14] MEDS: Heparin Injection (Vial) 5,000 UNIT/ML VIAL 5000 UNIT SC ×3 (05:28→22:15)
[2019-06-14] MEDS: Furosemide 40 MG/4 ML Vial IV (06:49)
[2019-06-14] MEDS: 0.9% Saline Lock 10 ML Syringe IV (06:50)
--- NOTE | 2019-06-14 06:59 | PN_ITS ---
Subjective: Patient did okay overnight from a hemodynamic standpoint. Unfortunately, patient continues to be difficult to sedate. Patient was unable to pass a spontaneous awakening trial this morning, so no spontaneous breathing trial was noted. Oxygenation continues to improve. Fever curve is slightly improving. Patient is tolerating tube feeds General: - - Fair vent synchrony. Peers older than stated age. HEENT: Atraumatic, PERRLA, EOMI, Normocephalic, - - No scleral icterus or injection noted Oral: Moist Mucosa, No Gingival or Mucosal Lesions/ Ulcerations Neck: Supple, No JVD, No Nodes, Trachea Midline Lungs: No rhonchi, No rales, Diminished, Wheezes - Some end exhalation Cardiovascular: Regular rate, Regular Rhythm, Normal S1, Normal S2, No murmurs, No rub noted, No Gallop Abdomen: Bowel Sounds Present, Soft, Non Tender, Non-Distended Extremities: No clubbing, No cyanosis, Edema - 1-2+ lower extremity Skin: - - No significant change compared to previous. Multiple tattoos noted. Musculoskeletal: No Tenderness to Palpation of Joints or Extremities Lymphatic: No Cervical, Supraclavicular, or Inguinal Adenopathy Neurological: Cranial nerves II-XII grossly intact, Neuro grossly intact, Motor Exam 5/5 strength throughout Psych/Mental Status: Anxious, Restless Vital Signs Temp Pulse Resp BP Pulse Ox 37.0 C 73 25 H 119/74 100 06/14/19 06:00 06/14/19 06:00 06/14/19 06:00 06/14/19 06:00 06/14/19 06:00 Oxygen Flow Rate (L/min) 15 Oxygen Delivery Method Mechanical Ventilator Weight: 77.8 kg Body Mass Index (BMI) 27.3 Finger Stick Blood Glucose 82 Intake and Output for Last 24 Hours 06/12/19 06/13/19 06/14/19 23:59 23:59 23:59 Intake Total ..96 3174.25 / 3509.25 1296.11 / 1296.11 Output Total 1125 / 1525 750 / 750 Balance 21.44 / .96 2049.25 / 1984.25 546.11 / 546.11 Labs (Last 48 Hours) 06/12/19 06/12/19 06/12/19 21:13 21:20 21:20 WBC 45.7 H* RBC 5.08 Hgb 16.2 Hct 50.9 MCV 100.2 H MCH 31.9 MCHC 31.8 L RDW Std Deviation 45.4 H RDW Coeff of Re 12.0 Plt Count 308 MPV 8.8 Immature Gran % (Auto) 2.200 H Neut % (Auto) 64.3 Lymph % (Auto) 25.2 Towner % (Auto) 7.8 Eos % (Auto) 0.0 Baso % (Auto) 0.5 Absolute Neuts (auto) 29.4 H Absolute Lymphs (auto) 11.51 H Nucleated RBC % 0.1 Differential Comment Diff Path Review Reviewed Reactive Lymphocytes 1+ Platelet Estimate ADEQUATE RBC Morphology NORM C+C Macrocytosis PT 12.7 INR 1.0 APTT 28.7 Specimen Type Sample Site pH Bicarbonate Actual POC Total CO2 Base Excess O2 Saturation O2 % ABG pCO2 ABG pO2 Leland Test Respiration Rate O2 Delivery Device Minute Volume Vent Mode Tidal Volume POC PEEP Blood Gas Notified Whom Sodium Potassium Chloride Carbon Dioxide Anion Gap BUN Creatinine Estim Creat Clear Calc Est GFR (MDRD) Af Amer Est GFR (MDRD) Non-Af BUN/Creatinine Ratio Glucose Calcium Total Bilirubin AST ALT Alkaline Phosphatase Troponin I B-Natriuretic Peptide Total Protein Albumin Globulin Albumin/Globulin Ratio Lipase Urine Color Urine Clarity Urine pH Ur Specific [place] Urine Protein Urine Glucose (UA) Urine Ketones Urine Occult Blood Urine Nitrite Urine Bilirubin Urine Urobilinogen Ur Leukocyte Esterase Urine RBC Urine WBC Ur Squamous Epith Cells Urine Bacteria Hyaline Casts Urine Mucus Urine Opiates Screen Urine Methadone Screen Ur Barbiturates Screen Ur Phencyclidine Scrn Ur Amphetamines Screen U Methamphetamin-MDMA U Benzodiazepines Scrn Urine Cocaine Screen U Cannabinoids Screen Ur Drug Screen Comment POC Glucose 82 06/12/19 06/12/19 06/12/19 21:20 21:20 22:00 WBC RBC Hgb Hct MCV MCH MCHC RDW Std Deviation RDW Coeff of Re Plt Count MPV Immature Gran % (Auto) Neut % (Auto) Lymph % (Auto) Towner % (Auto) Eos % (Auto) Baso % (Auto) Absolute Neuts (auto) Absolute Lymphs (auto) Nucleated RBC % Differential Comment Diff Path Review Reactive Lymphocytes Platelet Estimate RBC Morphology Macrocytosis PT INR APTT Specimen Type Sample Site pH Bicarbonate Actual POC Total CO2 Base Excess O2 Saturation O2 % ABG pCO2 ABG pO2 Leland Test Respiration Rate O2 Delivery Device Minute Volume Vent Mode Tidal Volume POC PEEP Blood Gas Notified Whom Sodium 137 Potassium 4.3 Chloride 107 Carbon Dioxide 21.0 Anion Gap 9 BUN 14 Creatinine 1.25 Estim Creat Clear Calc 73.63 Est GFR (MDRD) Af Amer 78 Est GFR (MDRD) Non-Af 64 BUN/Creatinine Ratio 11.2 Glucose 75 Calcium 8.6 Total Bilirubin 0.70 AST 74 H ALT 63 H Alkaline Phosphatase 98 Troponin I 0.052 H B-Natriuretic Peptide 83.5 Total Protein 6.8 Albumin 2.9 L Globulin 3.9 Albumin/Globulin Ratio 0.7 L Lipase 71 L Urine Color Yellow Urine Clarity Clear Urine pH 6.0 Ur Specific [place] 1.020 Urine Protein 100 H Urine Glucose (UA) Normal Urine Ketones 150 H Urine Occult Blood 150 H Urine Nitrite Negative Urine Bilirubin 1 H Urine Urobilinogen Normal Ur Leukocyte Esterase Negative Urine RBC 0-5 SEEN Urine WBC 0-5 SEEN Ur Squamous Epith Cells 0 SEEN Urine Bacteria 0 SEEN Hyaline Casts 0-5 SEEN Urine Mucus 1+ Urine Opiates Screen Urine Methadone Screen Ur Barbiturates Screen Ur Phencyclidine Scrn Ur Amphetamines Screen U Methamphetamin-MDMA U Benzodiazepines Scrn Urine Cocaine Screen U Cannabinoids Screen Ur Drug Screen Comment POC Glucose 06/12/19 06/13/19 06/13/19 22:00 02:12 02:46 WBC 35.0 H* RBC 4.65 Hgb 14.9 Hct 47.9 MCV 103.0 H MCH 32.0 MCHC 31.1 L RDW Std Deviation 46.5 H RDW Coeff of Re 12.3 Plt Count 229 MPV 9.0 Immature Gran % (Auto) 1.600 H Neut % (Auto) 73.4 H Lymph % (Auto) 16.9 L Towner % (Auto) 7.7 Eos % (Auto) 0.0 Baso % (Auto) 0.4 Absolute Neuts (auto) 25.7 H Absolute Lymphs (auto) 5.93 H Nucleated RBC % 0 Differential Comment SCANNED Diff Path Review Reviewed Reactive Lymphocytes Platelet Estimate RBC Morphology Macrocytosis 2+ PT INR APTT Specimen Type ART Sample Site L Radial pH 7.33 L Bicarbonate Actual 23.4 POC Total CO2 25 Base Excess -3 L O2 Saturation 100 H O2 % 100 ABG pCO2 44.6 ABG pO2 377 H* Leland Test NA Respiration Rate 16 O2 Delivery Device Vent Minute Volume 8.00 Vent Mode A-C Tidal Volume 467 POC PEEP 5 Blood Gas Notified Whom ICU Sodium Potassium Chloride Carbon Dioxide Anion Gap BUN Creatinine Estim Creat Clear Calc Est GFR (MDRD) Af Amer Est GFR (MDRD) Non-Af BUN/Creatinine Ratio Glucose Calcium Total Bilirubin AST ALT Alkaline Phosphatase Troponin I B-Natriuretic Peptide Total Protein Albumin Globulin Albumin/Globulin Ratio Lipase Urine Color Urine Clarity Urine pH Ur Specific [place] Urine Protein Urine Glucose (UA) Urine Ketones Urine Occult Blood Urine Nitrite Urine Bilirubin Urine Urobilinogen Ur Leukocyte Esterase Urine RBC Urine WBC Ur Squamous Epith Cells Urine Bacteria Hyaline Casts Urine Mucus Urine Opiates Screen POSITIVE H Urine Methadone Screen NEGATIVE Ur Barbiturates Screen NEGATIVE Ur Phencyclidine Scrn NEGATIVE Ur Amphetamines Screen NEGATIVE U Methamphetamin-MDMA NEGATIVE U Benzodiazepines Scrn NEGATIVE Urine Cocaine Screen NEGATIVE U Cannabinoids Screen NEGATIVE Ur Drug Screen Comment POC Glucose 06/13/19 06/13/19 06/13/19 02:46 13:21 18:37 WBC RBC Hgb Hct MCV MCH MCHC RDW Std Deviation RDW Coeff of Re Plt Count MPV Immature Gran % (Auto) Neut % (Auto) Lymph % (Auto) Towner % (Auto) Eos % (Auto) Baso % (Auto) Absolute Neuts (auto) Absolute Lymphs (auto) Nucleated RBC % Differential Comment Diff Path Review Reactive Lymphocytes Platelet Estimate RBC Morphology Macrocytosis PT INR APTT Specimen Type Sample Site pH Bicarbonate Actual POC Total CO2 Base Excess O2 Saturation O2 % ABG pCO2 ABG pO2 Leland Test Respiration Rate O2 Delivery Device Minute Volume Vent Mode Tidal Volume POC PEEP Blood Gas Notified Whom Sodium 136 Potassium 4.3 Chloride 107 Carbon Dioxide 19.0 L Anion Gap 10 BUN 20 H Creatinine 1.35 H Estim Creat Clear Calc 55.68 Est GFR (MDRD) Af Amer 71 Est GFR (MDRD) Non-Af 59 L BUN/Creatinine Ratio 14.8 Glucose 82 Calcium 7.5 L Total Bilirubin 0.80 AST 75 H ALT 53 Alkaline Phosphatase 76 Troponin I B-Natriuretic Peptide Total Protein 5.5 L Albumin 2.1 L Globulin 3.4 Albumin/Globulin Ratio 0.6 L Lipase Urine Color Urine Clarity Urine pH Ur Specific [place] Urine Protein Urine Glucose (UA) Urine Ketones Urine Occult Blood Urine Nitrite Urine Bilirubin Urine Urobilinogen Ur Leukocyte Esterase Urine RBC Urine WBC Ur Squamous Epith Cells Urine Bacteria Hyaline Casts Urine Mucus Urine Opiates Screen Urine Methadone Screen Ur Barbiturates Screen Ur Phencyclidine Scrn Ur Amphetamines Screen U Methamphetamin-MDMA U Benzodiazepines Scrn Urine Cocaine Screen U Cannabinoids Screen Ur Drug Screen Comment POC Glucose 78 93 06/14/19 06/14/19 06/14/19 00:35 04:00 04:00 WBC 16.9 H RBC 3.95 L Hgb 12.5 L Hct 39.2 L MCV 99.2 H MCH 31.6 MCHC 31.9 L RDW Std Deviation 45.1 H RDW Coeff of Re 12.3 Plt Count 183 MPV 9.1 Immature Gran % (Auto) 1.300 H Neut % (Auto) 70.2 H Lymph % (Auto) 26.2 Towner % (Auto) 2.2 Eos % (Auto) 0.0 Baso % (Auto) 0.1 Absolute Neuts (auto) 11.9 H Absolute Lymphs (auto) 4.43 Nucleated RBC % 0 Differential Comment SCANNED Diff Path Review Reactive Lymphocytes Platelet Estimate RBC Morphology Macrocytosis PT INR APTT Specimen Type Sample Site pH Bicarbonate Actual POC Total CO2 Base Excess O2 Saturation O2 % ABG pCO2 ABG pO2 Leland Test Respiration Rate O2 Delivery Device Minute Volume Vent Mode Tidal Volume POC PEEP Blood Gas Notified Whom Sodium 138 Potassium 4.6 Chloride 106 Carbon Dioxide 25.0 Anion Gap 7 BUN 19 H Creatinine 1.13 Estim Creat Clear Calc 66.52 Est GFR (MDRD) Af Amer 88 Est GFR (MDRD) Non-Af 72 BUN/Creatinine Ratio 16.8 Glucose 142 H Calcium 7.5 L Total Bilirubin AST ALT Alkaline Phosphatase Troponin I B-Natriuretic Peptide Total Protein Albumin Globulin Albumin/Globulin Ratio Lipase Urine Color Urine Clarity Urine pH Ur Specific [place] Urine Protein Urine Glucose (UA) Urine Ketones Urine Occult Blood Urine Nitrite Urine Bilirubin Urine Urobilinogen Ur Leukocyte Esterase Urine RBC Urine WBC Ur Squamous Epith Cells Urine Bacteria Hyaline Casts Urine Mucus Urine Opiates Screen Urine Methadone Screen Ur Barbiturates Screen Ur Phencyclidine Scrn Ur Amphetamines Screen U Methamphetamin-MDMA U Benzodiazepines Scrn Urine Cocaine Screen U Cannabinoids Screen Ur Drug Screen Comment POC Glucose 110 Microbiology 06/13/19 02:35 Mucosa - Nasopharyngeal Influenza Types A,B Direct FA ([facility]) - Final Clinical Impression(s) from Imaging Studies Abdomen/Pelvis CT 06/13/19 09:34 IMPRESSION: Biliary stent is seen within the common bile duct. Pneumobilia of the biliary tree. Focal atelectasis and/or infiltrate at the left lung base. Electronically Signed: Davis Honeycutt, at 13:29 EST , Service support , Medical Necessity - Tobacco Use Smoking Status: Former smoker Tobacco Use: Cigarettes Assessment/Plan All Active Problems (Last Reviewed 02/22/19 @ 02:51 by Renato Hutson MD) Cholangitis (Acute) Acute ST elevation myocardial infarction (STEMI) of inferior wall (Acute) Severe sepsis (Acute) Sinus tachycardia by electrocardiogram (Acute) Respiratory infection (Acute) Encounter for observation for suspected nervous system disorder (Acute) Takotsubo cardiomyopathy (Acute) Respiratory failure (Acute) Sepsis (Acute) Leukocytosis (Acute) Intractable abdominal pain (Acute) Cocaine abuse (Resolved) Reaction, drug, adverse (Resolved) RECOMMENDATIONS: 1. Continue empiric antibiotics 2. Transition to Precedex therapy. Continue fentanyl. 3. Continue beta-consuelo per cardiology 4. Spontaneous breathing and awakening trials per protocol 5. Await results of blood cultures IMPRESSIONS: 1. Acute hypoxic respiratory failure Unclear etiology at this time. Patient was tachycardic and hypertensive on presentation, so flash pulmonary edema would be a possibility. Patient's heart catheterization showed no endovascular issues, but EF was reduced to 25% from 75% previously. Patient's fever curve appears to be improving on antibiotics. Echocardiogram was not suggestive of endocarditis. We will transition to Precedex therapy to attempt improved spontaneous awakening and breathing trials per protocol. 2. Takotsubo cardiomyopathy/acute systolic congestive heart failure Cardiology is following. Patient did have a heart catheterization suggestive of clean coronary arteries. Patient's rate is much improved following addition of beta-consuelo. Blood pressure is holding. Would defer to cardiology. Chest x-ray does not show any significant infiltrates at this time, so doubt lobar pneumonia. Cannot exclude micro emboli. Patient is on appropriate antibiotics. 3. History of non-Hodgkin's lymphoma/leukocytosis Patient with significant leukocytosis on presentation. This does appear to be improving with current therapy. Unclear if this is secondary to a stress response, acute infection or possible recurrence of Hodgkin's lymphoma. Patient will need to be watched carefully for thrombotic complications. 4. Possible sepsis Patient does have significant leukocytosis and fever. Patient's blood pressure has been okay. Tachycardia may be secondary to primary cardiac condition, but patient also is at risk for infection. Unclear if this is secondary to endocarditis given recent IV drug use versus occult abscess. CT of the abdomen was not suggestive of infectious etiology. TIME: 33 minutes critical care time spent addressing patient's acute hypoxic respiratory failure, sepsis, cardiomyopathy, review of all data and collaboration with care team (5:50 AM to 6:50 AM) Code Visit [id number]: [id number] Critical care first hour
[2019-06-14 07:01] LABS: Bedside Glucose 142 mg/dL (70-110)
[2019-06-14] MEDS: Chlorhexidine 15 ML PO ×2 (09:36→22:16)
[2019-06-14] MEDS: Carvedilol 3.125 MG TABLET PO (09:36)
[2019-06-14] MEDS: Lisinopril 2.5 MG Tablet PO (09:36)
--- NOTE | 2019-06-14 09:56 | CASEMGMT ---
RN CM Note: participated in Interdisciplinary rounds. Pt remains on ventilator. is in room and participated in rounds. Upon return to complete assessment, has left hospital. Assessment deferred. Catherine JACKSONN RN ACM
[2019-06-14] MEDS: Propofol 10MG/Ml 1,000 MG/100 ML Bottle 16.3 MG CONT INF (10:22)
--- NOTE | 2019-06-14 10:35 | PCM.PN.HOSP ---
Patient Problems: Active and Suspected Problems (Last Reviewed 02/22/19 @ 02:51 by Renato Hutson MD) Acute ST elevation myocardial infarction (STEMI) of inferior wall (Acute) Severe sepsis (Acute) Sinus tachycardia by electrocardiogram (Acute) Respiratory infection (Acute) Encounter for observation for suspected nervous system disorder (Acute) Takotsubo cardiomyopathy (Acute) Respiratory failure (Acute) Subjective: Patient seen and examined. He remains intubated and sedated. Was a bit agitated earlier this morning so breathing trial could not be attempted. Labs and vitals reviewed. Temperature is settling. However blood pressure was low this morning at 81/58. WBC has trended down to 16.9 and hemoglobin is 12.5. Platelets are 183. He is in cumulative positive balance by 3.05 L since admission. Vitals/I&O's: Vital Signs Temp Pulse Resp BP Pulse Ox 98.2 F 62 16 81/58 L 99 06/14/19 09:00 06/14/19 09:00 06/14/19 09:00 06/14/19 09:00 06/14/19 09:00 Oxygen Flow Rate (L/min) 15 Oxygen Delivery Method Mechanical Ventilator Weight: 171 lb 8.314 oz Body Mass Index (BMI) 27.3 Finger Stick Blood Glucose 82 Intake and Output for Last 24 Hours 06/12/19 06/13/19 06/14/19 23:59 23:59 23:59 Intake Total 21.44 / 24.96 3174.25 / 3509.25 1623.59 / 1623.59 Output Total 1125 / 1525 750 / 750 Balance 21.44 / 24.96 2049.25 / 1984.25 873.59 / 873.59 General: - - intubated, sedated. RASS score of -4 HEENT: Atraumatic, EOMI, Normocephalic Oral: Dry Mucosa Neck: Supple Lungs: - - decreased breath sounds bibasally, no wheezes or crackles. intubated and sedated Cardiovascular: Normal S1, Normal S2, No murmurs, Tachycardic Abdomen: Bowel Sounds Present, Soft, Non Tender, Non-Distended, No Hepato-splenomegaly Extremities: No clubbing, No cyanosis, No edema, Capillary Refill Less than 3 Seconds Skin: - - multiple track lazar over UEs and LEs; superficial excoriations over chest and abdomen Musculoskeletal: No Tenderness to Palpation of Joints or Extremities Lymphatic: No Cervical, Supraclavicular, or Inguinal Adenopathy Neurological: - - intubated, sedated, RASS score is -4 Microbiology Past 72 Hours 06/13/19 02:35 Mucosa - Nasopharyngeal Influenza Types A,B Direct FA ([facility]) - Final Laboratory Results 06/12/19 21:20: Diff Path Review Reviewed 06/13/19 02:46: Diff Path Review Reviewed 06/13/19 13:21: POC Glucose 78 06/13/19 18:37: POC Glucose 93 06/14/19 00:35: POC Glucose 110 06/14/19 04:00: WBC 16.9 H, RBC 3.95 L, Hgb 12.5 L, Hct 39.2 L, MCV 99.2 H, MCH 31.6, MCHC 31.9 L, RDW Std Deviation 45.1 H, RDW Coeff of Re 12.3, Plt Count 183, MPV 9.1, Immature Gran % (Auto) 1.300 H, Neut % (Auto) 70.2 H, Lymph % (Auto) 26.2, [place] % (Auto) 2.2, Eos % (Auto) 0.0, Baso % (Auto) 0.1, Absolute Neuts (auto) 11.9 H, Absolute Lymphs (auto) 4.43, Nucleated RBC % 0, Differential Comment SCANNED 06/14/19 04:00: Sodium 138, Potassium 4.6, Chloride 106, Carbon Dioxide 25.0, Anion Gap 7, BUN 19 H, Creatinine 1.13, Estim Creat Clear Calc 66.52, Est GFR (MDRD) Af Amer 88, Est GFR (MDRD) Non-Af 72, BUN/Creatinine Ratio 16.8, Glucose 142 H, Calcium 7.5 L 06/14/19 06:47: POC Glucose 142 H Diagnostic Data Chest X-Ray 06/13/19 05:48 IMPRESSION: Stable support lines and tubes. Probable left lung base atelectasis. Electronically Signed: Odell Vasquez, at 6:19 EST Tel , Service support , Abdomen/Pelvis CT 06/13/19 09:34 IMPRESSION: Biliary stent is seen within the common bile duct. Pneumobilia of the biliary tree. Focal atelectasis and/or infiltrate at the left lung base. Electronically Signed: Davis Stephensonkarlyramirez, at 13:29 EST , Service support , Current Medications Acetaminophen (Tylenol Liquid) 650 mg NG Q4H PRN PRN PRN Reason: Pain or Fever Last Admin: 06/13/19 16:09 Dose: 650 mg Documented by: Albuterol Sulfate (Ventolin Aerosols) 2.5 mg INHALATION Q2H PRN PRN PRN Reason: SOB/Wheezing Last Admin: 06/13/19 13:13 Dose: 2.5 mg Documented by: Carvedilol (Coreg) 3.125 mg PO BID [facility] Last Admin: 06/14/19 09:36 Dose: 3.125 mg Documented by: Chlorhexidine Gluconate () 1 each TOPICAL DAILY MARISSA Last Admin: 06/14/19 01:07 Dose: 1 each Documented by: Chlorhexidine Gluconate () 15 ml PO BID [facility] Last Admin: 06/14/19 09:36 Dose: 15 ml Documented by: Glucagon () 1 mg IM .X1 PRN PRN Reason: Hypoglycemia Heparin Sodium (Porcine) (Heparin Na) 5,000 unit SC Q8 MARISSA Last Admin: 06/14/19 05:28 Dose: 5,000 unit Documented by: Propofol (Diprivan) 1,000 mg in 100 mls @ 4.668 mls/hr CONT INF .Q12H [facility]; Protocol Last Titration: 06/14/19 10:30 Dose: 30 mcg/kg/min, 14 mls/hr Documented by: Fentanyl () 100 mls @ 2.5 mls/hr IV UD MARISSA; Protocol Last Titration: 06/14/19 10:00 Dose: 150 mcg/hr, 15 mls/hr Documented by: Dextrose (Dextrose 10%-Water) 250 mls @ 999 mls/hr IV X1 PRN; Protocol PRN Reason: HYPOGLYCEMIA Sodium Chloride () 250 mls @ 15 mls/hr IV .[id number] PRN PRN Reason: Saline Flush Sodium Chloride () 250 mls @ 15 mls/hr IV .[id number] PRN PRN Reason: Additional IVPB Infusion Ceftriaxone Sodium (Rocephin) 1 gm in 50 mls @ 100 mls/hr IV Q24 [facility] Last Infusion: 06/13/19 10:37 Dose: Infused Documented by: Pantoprazole Sodium 40 mg/ (Sodium Chloride) 110 mls @ 330 mls/hr IV Q24 [facility] Last Admin: 06/14/19 09:38 Dose: 330 mls/hr Documented by: Metronidazole (Flagyl) 500 mg in 100 mls @ 100 mls/hr IV Q8 [facility] Last Admin: 06/14/19 10:23 Dose: 100 mls/hr Documented by: Enteral Nutritional Formula (Vital Af 1.2 [place] Liquid) 1,000 mls @ 70 mls/hr GT .[id number] [facility] Last Admin: 06/14/19 08:37 Dose: Not Given Documented by: Dexmedetomidine HCl 400 mcg/ (Sodium Chloride) 100 mls @ 9.725 mls/hr CONT INF .[id number] [facility]; Protocol Last Titration: 06/14/19 10:00 Dose: 0.8 mcg/kg/hr, 15.6 mls/hr Documented by: Lisinopril (Zestril) 2.5 mg PO DAILY [facility] Last Admin: 06/14/19 09:36 Dose: 2.5 mg Documented by: Methylprednisolone (Solu-Medrol) 40 mg IV Q8 [facility] Last Admin: 06/14/19 05:28 Dose: 40 mg Documented by: Sodium Chloride () 10 - 40 ml IV UD PRN PRN Reason: SALINE FLUSH Last Admin: 06/14/19 06:50 Dose: 20 ml Documented by: STROKE Vital Signs/Narrative: Vital Signs Temp Pulse Resp BP Pulse Ox 06/14/19 09:00 98.2 F 62 16 81/58 L 99 06/14/19 08:00 98.5 F 65 18 101/57 L 99 06/14/19 07:28 71 06/14/19 07:00 109/70 Medical Necessity - Tobacco Use Smoking Status: Former smoker Tobacco Use: Cigarettes Assessment/Plan All Active Problems (Last Reviewed 02/22/19 @ 02:51 by Renato Hutson MD) Cholangitis (Acute) Acute ST elevation myocardial infarction (STEMI) of inferior wall (Acute) Severe sepsis (Acute) Sinus tachycardia by electrocardiogram (Acute) Respiratory infection (Acute) Encounter for observation for suspected nervous system disorder (Acute) Takotsubo cardiomyopathy (Acute) Respiratory failure (Acute) Sepsis (Acute) Leukocytosis (Acute) Intractable abdominal pain (Acute) Cocaine abuse (Resolved) Reaction, drug, adverse (Resolved) 1. Acute hypoxic respiratory failure Etiology is unclear. May have been due to the Takotsubo cardiomyopathy. Currently intubated and sedated. was agitated this morning, so breathing trial could not be attempted. On minimal vent settings wtih FiO2 of 30% and PEEP of 5 Critical care on board. Continue breathing treatments. Rapid influenza screen was negative. on IV solumedrol 2. Sepsis source of sepsis is unclear SIRS criteria now 06/09 (fever, tachypnea and tachycardia have resolved) on IV ceftriaxone and metronidazole wbc is down to 16.[address] abdomen and pelvis showed no infectious pathology and showed biliary stent in the common bile duct with pneumobilia of the biliary tree as well as focal atelectasis and or infiltrate of the left lung base. Blood cultures are pending. 2D echo: EF of 30 to 35% with stage I diastolic dysfunction and regional wall motion abnormalities. All the valves look normal with no evidence of endocarditis. Stage I diastolic dysfunction and RVSP was not assessed due to insufficient regurgitant tricuspid inflow. 3. Takotsubo cardiomyopathy STEMI alert was called on admission on account of ST elevation in inferior leads. However coronary arteries were clean though he had EF of about 25%. Patient's been suggestive of Takotsubo cardiomyopathy. Cardiology on board. On lisinopril 4. History of IV drug abuse apparently, patient's has been shooting him up with morphine at home. He has numerous track lazar all over his extremities. 2D echo as under 2; was negative for any evidence of Blood cultures pending. On ceftriaxone and metronidazole, as per critical care urine tox was positive for opiates. 5. Non-Hodgkin's lymphoma: In remission. wbc now down to 16.9 today. Does have a history of chronically elevated WBCs likely due to non-Hodgkin's lymphoma. Will monitor. 6. Hypothyroidism: on synthroid 7. Chronic hepatitis C: Treatment na?ve. Will monitor. DVT prophylaxis: Heparin Code Visit Inpatient E&M: [id number] [facility] L[facility]
[2019-06-14] MEDS: Ceftriaxone 1 GM/50 ML BAG IV (11:41)
--- NOTE | 2019-06-14 17:25 | PN.CARD_ITS ---
Subjectve: Patient is intubated, sedated. Blood pressure is on the low side but patient has not required pressors. Objective: Vital Signs Temp Pulse Resp BP Pulse Ox 98.6 F 59 L 22 H 83/57 L 97 06/14/19 16:00 06/14/19 16:27 06/14/19 16:00 06/14/19 16:00 06/14/19 16:00 Oxygen Flow Rate (L/min) 15 Oxygen Delivery Method Mechanical Ventilator Weight: 171 lb 8.314 oz Body Mass Index (BMI) 27.3 Finger Stick Blood Glucose 82 Intake and Output for Last 24 Hours 06/12/19 06/13/19 06/14/19 23:59 23:59 23:59 Intake Total 21.44 / 24.96 3174.25 / 3509.25 2226.43 / 2226.43 Output Total 1125 / 1525 1850 / 1850 Balance 21.44 / 24.96 2049.25 / 1984.25 376.43 / 376.43 General: - - Intubated, sedated HEENT: Atraumatic Lungs: Clear to auscultation Cardiovascular: Regular Rhythm Abdomen: Soft Extremities: No edema Skin: No Rashes 06/14/19 04:00: WBC 16.9 H, RBC 3.95 L, Hgb 12.5 L, Hct 39.2 L, MCV 99.2 H, MCH 31.6, MCHC 31.9 L, Plt Count 183, MPV 9.1, Immature Gran % (Auto) 1.300 H, Neut % (Auto) 70.2 H, Lymph % (Auto) 26.2, [place] % (Auto) 2.2, Eos % (Auto) 0.0, Baso % (Auto) 0.1, Absolute Neuts (auto) 11.9 H, Nucleated RBC % 0 06/14/19 04:00: Sodium 138, Potassium 4.6, Chloride 106, Carbon Dioxide 25.0, Anion Gap 7, BUN 19 H, Creatinine 1.13, Est GFR (MDRD) Af Amer 88, Est GFR (MDRD) Non-Af 72, BUN/Creatinine Ratio 16.8, Glucose 142 H, Calcium 7.5 L Rhythm: EKG: ECHO: Stress Test: Cardiac Cath: PCI: CT Surgery: Holter monitor: EPS: PPM: CXR: Chest CT Scan: Medical Necessity - Tobacco Use Smoking Status: Former smoker Tobacco Use: Cigarettes Assessment/Plan 1. Suspected inferior ST elevation ME: Coronary angiography revealed no significant coronary artery disease. Wall motion abnormalities are consistent with Takotsubo cardiomyopathy. Continue low-dose MARITZA inhibitor and a beta- consuelo as blood pressure allows. 2. Takotsubo cardiomyopathy: Management as described above.
[2019-06-14] MEDS: fentaNYL drip 100 ML 20 MCG IV (17:46)
[2019-06-14] MEDS: Propofol 10MG/Ml 1,000 MG/100 ML Bottle 9.3 MG CONT INF (17:46)
[2019-06-14] MEDS: Vital AF 1.2 Cal Liquid 1,000 ML 70 ML GT (19:50)
[2019-06-15] VITALS (39 sets, daily range): BP systolic 79–155; BP diastolic 7–90; PULSE 54–123; RESP 12–45; TEMP 36.6–37.2; O2SAT 80–100
[2019-06-15 00:11] LABS: Bedside Glucose 187 mg/dL (70-110)
[2019-06-15 04:29] LABS: Absolute Lymphocyte Count 4.05 X10^3/uL (0.83-4.51); Absolute Neutrophil Count 20.3 X10^3/uL (2.0-7.7); Basophil# 0.04 X10^3/uL; Basophil% 0.2 % (0-1); Eosinophil# 0.04 X10^3/uL; Eosinophils% 0.2 % (0-5); Hematocrit 38.9 % (40-54); Hemoglobin 12.3 g/dL (13.0-16.5); Lymphocyte # 4.05 X10^3/ul (4.0); Lymphocyte % 15.8 % (19-41); Mean Corp Hgb Conc 31.6 g/dL (32-36); Mean Corpuscular Hgb 31.1 pg (27.0-32.0); Mean Corpuscular Volume 98.5 fL (80-94); Mean Platelet Vol. 9.7 fl (6.2-12.0); Monocyte# 0.92 X10^3/uL; Monocyte% 3.6 % (0-10); NRBC Flagged by Analyzer 0.1 % (0-5); Neutrophil # 20.31 X10^3/uL (2.7-7.7); Neutrophil % 79.4 % (47-70); POSITIVE DIFFERENTIAL YES; Platelet Count 223 K/mm3 (150-450); RBC Distribution Width CV 12.3 % (11.6-14.6); RBC Distribution Width SD 45.1 fl (35.1-43.9); Red Blood Count 3.95 M/mm3 (4.6-6.2); White Blood Count 25.6 K/mm3 (4.4-11.0)
[2019-06-15 04:42] LABS: Anion Gap 3 (5-15); BUN 33 mg/dL (7-18); BUN/Creat Ratio 34.5 RATIO (10-20); Calcium,Total 7.9 mg/dL (8.5-10.1); Chloride 110 mmol/L (98-107); Creatinine, Serum 0.96 mg/dL (0.70-1.30); EST Glomerular Filtration Rate 88 mL/min (>60); Est Glom Filt Rate - Afr Amer 106 mL/min (>60); Glucose 174 mg/dL (74-106); Potassium 4.1 mmol/L (3.5-5.1); Sodium Level 141 mmol/L (136-145)
[2019-06-15 05:11] LABS: Differential Indicated SCAN CRITERIA MET
[2019-06-15] MEDS: Heparin Injection (Vial) 5,000 UNIT/ML VIAL 5000 UNIT SC ×3 (05:12→21:11)
[2019-06-15 05:39] LABS: Differential Comment SCANNED
[2019-06-15] MEDS: Haloperidol Lactate 5 MG/ML Vial IV (05:54)
[2019-06-15] MEDS: 0.9% Saline Lock 10 ML Syringe IV (06:06)
[2019-06-15] MEDS: Ondansetron 4 MG/2 ML Vial IV (06:08)
[2019-06-15 06:25] LABS: Allen Test POS; Base Excess -3 mmol/L (-2 to +2); Bicarbonate 25.7 mmol/L (22-26); Blood Gas Specimen Type ART; FI02 30; Mode CPAP PS; O2 Delivery Device Vent; PEEP 5; PO2 67 mmHG (75-100); PS 5; SITE L Radial; SO2 85 % (95-99); Time Given 613; Total Carbon Dioxide 28 mmol/L; pCO2 77.3 mmHg (35-45); pH 7.13 (7.35-7.45)
--- NOTE | 2019-06-15 06:29 | CPS ---
critical abg results read to Dr. Vazquez
[2019-06-15] MEDS: Propofol 10MG/Ml 1,000 MG/100 ML Bottle 4.7 MG CONT INF (06:30)
[2019-06-15 07:16] LABS: Bedside Glucose 193 mg/dL (70-110)
--- NOTE | 2019-06-15 07:30 | NURSING ---
patient became combative and agitated during SBT this am with a RASS of +4. Attempted to give haldol IV x1 and zofran IV x1 per Dr. Vazquez and it was not effective. ABG obtained and Dr. Vazquez notified. Restarted fentanyl and propofol and placed back on ACVC+ mode per Dr. Vazquez
--- NOTE | 2019-06-15 07:52 | PCM.PN.INT ---
Subjective: Patient did relatively well overnight. Patient did qualify for spontaneous breathing trial this morning. Patient did make it an hour, but was significantly tachypneic at the end. ABG showed decompensation. Patient had significant difficulty with recovery requiring reinitiation of propofol for vent synchrony. Tube feeds have been held for spontaneous breathing trial, but these have been resumed. General: Confused, Disoriented, Non-Cooperative, - - Significant dyssynchrony initially. Improved with increasing sedation. HEENT: Atraumatic, PERRLA, EOMI, Normocephalic, - - Slight scleral injection without icterus Oral: Moist Mucosa, No Gingival or Mucosal Lesions/ Ulcerations Neck: Supple, No JVD, No Nodes, Trachea Midline Lungs: No rhonchi, No rales, Diminished, Wheezes, - - Symmetric expansion Cardiovascular: Normal S1, Normal S2, No murmurs, No rub noted, No Gallop, Tachycardic Abdomen: Bowel Sounds Present, Soft, Non Tender, Distended - Slightly, Obese Extremities: No clubbing, No cyanosis, No edema, Capillary Refill Less than 3 Seconds Skin: - - No significant change compared to previous. Still with scattered ulcerations of various stages of healing Musculoskeletal: No Tenderness to Palpation of Joints or Extremities Lymphatic: No Cervical, Supraclavicular, or Inguinal Adenopathy Neurological: Cranial nerves II-XII grossly intact, Neuro grossly intact, Motor Exam 5/5 strength throughout Psych/Mental Status: Anxious, Restless Vital Signs Temp Pulse Resp BP Pulse Ox 37.1 C 82 34 H 121/70 H 89 06/15/19 06:00 06/15/19 07:00 06/15/19 07:00 06/15/19 07:00 06/15/19 07:00 Oxygen Flow Rate (L/min) 15 Oxygen Delivery Method Mechanical Ventilator Weight: 78.7 kg Body Mass Index (BMI) 27.3 Finger Stick Blood Glucose 82 Intake and Output for Last 24 Hours 06/13/19 06/14/19 06/15/19 23:59 23:59 23:59 Intake Total 3174.25 / 3509.25 3227.63 / 3731.85 1242.66 / 1242.66 Output Total 1125 / 1525 2075 / 2225 400 / 400 Balance 204.25 / 1983.25 1152.63 / 1506.85 842.66 / 842.66 Labs (Last 48 Hours) 06/12/19 06/13/19 06/13/19 21:20 02:46 13:21 WBC RBC Hgb Hct MCV MCH MCHC RDW Std Deviation RDW Coeff of Re Plt Count MPV Immature Gran % (Auto) Neut % (Auto) Lymph % (Auto) [place] % (Auto) Eos % (Auto) Baso % (Auto) Absolute Neuts (auto) Absolute Lymphs (auto) Nucleated RBC % Differential Comment Diff Path Review Reviewed Reviewed Specimen Type Sample Site pH Bicarbonate Actual POC Total CO2 Base Excess O2 Saturation O2 % ABG pCO2 ABG pO2 Leland Test O2 Delivery Device Vent Mode POC PEEP POC Pressure Suppt Blood Gas Notified Whom Blood Gas Notified Time Sodium Potassium Chloride Carbon Dioxide Anion Gap BUN Creatinine Estim Creat Clear Calc Est GFR (MDRD) Af Amer Est GFR (MDRD) Non-Af BUN/Creatinine Ratio Glucose Calcium POC Glucose 78 06/13/19 06/14/19 06/14/19 18:37 00:35 04:00 WBC 16.9 H RBC 3.95 L Hgb 12.5 L Hct 39.2 L MCV 99.2 H MCH 31.6 MCHC 31.9 L RDW Std Deviation 45.1 H RDW Coeff of Re 12.3 Plt Count 183 MPV 9.1 Immature Gran % (Auto) 1.300 H Neut % (Auto) 70.2 H Lymph % (Auto) 26.2 [place] % (Auto) 2.2 Eos % (Auto) 0.0 Baso % (Auto) 0.1 Absolute Neuts (auto) 11.9 H Absolute Lymphs (auto) 4.43 Nucleated RBC % 0 Differential Comment SCANNED Diff Path Review Specimen Type Sample Site pH Bicarbonate Actual POC Total CO2 Base Excess O2 Saturation O2 % ABG pCO2 ABG pO2 Leland Test O2 Delivery Device Vent Mode POC PEEP POC Pressure Suppt Blood Gas Notified Whom Blood Gas Notified Time Sodium Potassium Chloride Carbon Dioxide Anion Gap BUN Creatinine Estim Creat Clear Calc Est GFR (MDRD) Af Amer Est GFR (MDRD) Non-Af BUN/Creatinine Ratio Glucose Calcium POC Glucose 93 110 06/14/19 06/14/19 06/14/19 04:00 06:47 23:55 WBC RBC Hgb Hct MCV MCH MCHC RDW Std Deviation RDW Coeff of Re Plt Count MPV Immature Gran % (Auto) Neut % (Auto) Lymph % (Auto) [place] % (Auto) Eos % (Auto) Baso % (Auto) Absolute Neuts (auto) Absolute Lymphs (auto) Nucleated RBC % Differential Comment Diff Path Review Specimen Type Sample Site pH Bicarbonate Actual POC Total CO2 Base Excess O2 Saturation O2 % ABG pCO2 ABG pO2 Leland Test O2 Delivery Device Vent Mode POC PEEP POC Pressure Suppt Blood Gas Notified Whom Blood Gas Notified Time Sodium 138 Potassium 4.6 Chloride 106 Carbon Dioxide 25.0 Anion Gap 7 BUN 19 H Creatinine 1.13 Estim Creat Clear Calc 66.52 Est GFR (MDRD) Af Amer 88 Est GFR (MDRD) Non-Af 72 BUN/Creatinine Ratio 16.8 Glucose 142 H Calcium 7.5 L POC Glucose 142 H 187 H 06/15/19 06/15/19 06/15/19 04:20 04:20 06:14 WBC 25.6 H RBC 3.95 L Hgb 12.3 L Hct 38.9 L MCV 98.5 H MCH 31.1 MCHC 31.6 L RDW Std Deviation 45.1 H RDW Coeff of Re 12.3 Plt Count 223 MPV 9.7 Immature Gran % (Auto) 0.800 Neut % (Auto) 79.4 H Lymph % (Auto) 15.8 L [place] % (Auto) 3.6 Eos % (Auto) 0.2 Baso % (Auto) 0.2 Absolute Neuts (auto) 20.3 H Absolute Lymphs (auto) 4.05 Nucleated RBC % 0.1 Differential Comment SCANNED Diff Path Review Specimen Type ART Sample Site L Radial pH 7.13 L* Bicarbonate Actual 25.7 POC Total CO2 28 Base Excess -3 L O2 Saturation 85 L O2 % 30 ABG pCO2 77.3 H* ABG pO2 67 L Leland Test POS O2 Delivery Device Vent Vent Mode CPAP PS POC PEEP 5 POC Pressure Suppt 5 Blood Gas Notified Whom ICU MD Blood Gas Notified Time 613 Sodium 141 Potassium 4.1 Chloride 110 H Carbon Dioxide 28.0 Anion Gap 3 L BUN 33 H Creatinine 0.96 Estim Creat Clear Calc 78.30 Est GFR (MDRD) Af Amer 106 Est GFR (MDRD) Non-Af 88 BUN/Creatinine Ratio 34.5 H Glucose 174 H Calcium 7.9 L POC Glucose 06/15/19 06:59 WBC RBC Hgb Hct MCV MCH MCHC RDW Std Deviation RDW Coeff of Re Plt Count MPV Immature Gran % (Auto) Neut % (Auto) Lymph % (Auto) [place] % (Auto) Eos % (Auto) Baso % (Auto) Absolute Neuts (auto) Absolute Lymphs (auto) Nucleated RBC % Differential Comment Diff Path Review Specimen Type Sample Site pH Bicarbonate Actual POC Total CO2 Base Excess O2 Saturation O2 % ABG pCO2 ABG pO2 Leland Test O2 Delivery Device Vent Mode POC PEEP POC Pressure Suppt Blood Gas Notified Whom Blood Gas Notified Time Sodium Potassium Chloride Carbon Dioxide Anion Gap BUN Creatinine Estim Creat Clear Calc Est GFR (MDRD) Af Amer Est GFR (MDRD) Non-Af BUN/Creatinine Ratio Glucose Calcium POC Glucose 193 H Microbiology 06/13/19 02:35 Mucosa - Nasopharyngeal Influenza Types A,B Direct FA ([facility]) - Final Medical Necessity - Tobacco Use Smoking Status: Former smoker Tobacco Use: Cigarettes Assessment/Plan All Active Problems (Last Reviewed 02/22/19 @ 02:51 by Renato Hutson MD) Cholangitis (Acute) Acute ST elevation myocardial infarction (STEMI) of inferior wall (Acute) Severe sepsis (Acute) Sinus tachycardia by electrocardiogram (Acute) Respiratory infection (Acute) Encounter for observation for suspected nervous system disorder (Acute) Takotsubo cardiomyopathy (Acute) Respiratory failure (Acute) Sepsis (Acute) Leukocytosis (Acute) Intractable abdominal pain (Acute) Cocaine abuse (Resolved) Reaction, drug, adverse (Resolved) RECOMMENDATIONS: 1. Continue empiric antibiotics 2. Continue Precedex and fentanyl. Add Seroquel. Attempt to discontinue propofol. 3. Continue beta-ocnsuelo per cardiology 4. Spontaneous breathing and awakening trials per protocol 5. Await results of blood cultures IMPRESSIONS: 1. Acute hypoxic respiratory failure Unclear etiology at this time. Patient was tachycardic and hypertensive on presentation, so flash pulmonary edema would be a possibility. Patient's heart catheterization showed no endovascular issues, but EF was reduced to 25% from 75% previously. Patient's fever curve appears to be improving on antibiotics. Echocardiogram was not suggestive of endocarditis. Transitioned to Precedex therapy to attempt improved spontaneous awakening and breathing trials per protocol. Patient failed this morning, likely secondary to development of pulmonary edema. Will attempt gentle diuresis. Will initiate Seroquel therapy to help with agitation. 2. Takotsubo cardiomyopathy/acute systolic congestive heart failure Cardiology is following. Patient did have a heart catheterization suggestive of clean coronary arteries. Patient's rate is much improved following addition of beta-consuelo. Blood pressure is holding. Would defer to cardiology. Chest x-ray did not show any significant infiltrates at that time, so doubt lobar pneumonia. Cannot exclude micro emboli. Patient is on appropriate antibiotics. 3. History of non-Hodgkin's lymphoma/leukocytosis Patient with significant leukocytosis on presentation. This does appear to be improving with current therapy. Unclear if this is secondary to a stress response, acute infection or possible recurrence of Hodgkin's lymphoma. Patient will need to be watched carefully for thrombotic complications. 4. Possible sepsis Patient does have significant leukocytosis and fever. Patient's blood pressure has been okay. Tachycardia may be secondary to primary cardiac condition, but patient also is at risk for infection. Unclear if this is secondary to endocarditis given recent IV drug use versus occult abscess. CT of the abdomen was not suggestive of infectious etiology/abscess. TIME: 50 minutes critical care time spent addressing patient's acute hypoxic respiratory failure, sepsis, cardiomyopathy, review of all data and collaboration with care team (6 AM to 8 AM) Code Visit [id number]: [id number] Critical care first hour
[2019-06-15] MEDS: fentaNYL drip 100 ML 17.5 MCG IV ×2 (08:30→18:00)
[2019-06-15] MEDS: QUEtiapine 25 MG Tablet 50 MG PO ×2 (09:32→21:11)
[2019-06-15] MEDS: Furosemide 20 MG/2 ML VIAL IV ×2 (09:33→18:22)
[2019-06-15] MEDS: Chlorhexidine 15 ML PO ×2 (09:34→20:22)
[2019-06-15] MEDS: CHLORHEXIDINE GLUC 2% CLOTH 1 EACH TOWELETTE TOPICAL (09:34)
--- NOTE | 2019-06-15 09:36 | CASEMGMT ---
MELO BAUER Assessment Presentation: TAKOTSUBO cardiomyopathy, Respiratory failure Participated in ICU interdisciplinary rounds. Pt remains on ventilator for next 24 hours. states agreeable to speak with CM after ICU rounds. When RN LIZETTE attempted to speak with re: assessment, starting with DME @ home, states, I already answered this. MELO BAUER explained purpose was to assist with dc planning in future. was not agreeable to continue. PCP: Dr. Ahuja Pharmacy: [facility] Prescription Coverage: yes Insurance: [facility] DC PLAN: undetermined. LIZETTE/YESSENIA will continue to work with pt/family re: dc plan/issues. Catherine JACKSONN RN ACM
[2019-06-15] MEDS: Ceftriaxone 1 GM/50 ML BAG IV (09:51)
--- NOTE | 2019-06-15 11:15 | PN_ITS ---
Patient Problems: Active and Suspected Problems (Last Reviewed 02/22/19 @ 02:51 by Renato Hutson MD) Acute ST elevation myocardial infarction (STEMI) of inferior wall (Acute) Severe sepsis (Acute) Sinus tachycardia by electrocardiogram (Acute) Respiratory infection (Acute) Encounter for observation for suspected nervous system disorder (Acute) Takotsubo cardiomyopathy (Acute) Respiratory failure (Acute) Subjective: Patient seen and examined. He remains intubated and sedated. Patient became agitated as sedatives were being weaned off this morning. He is currently on Precedex. Blood pressure has been running low in the 80s systolic. This was thought to be due to the sedatives that had to be increased when he became a gitated. Labs and vitals reviewed. Temperature has now settled. WBC is up to 25.6 today. Platelets are 223. Vitals/I&O's: Vital Signs Temp Pulse Resp BP Pulse Ox 98.8 F 60 22 H 85/57 L 98 06/15/19 06:00 06/15/19 11:00 06/15/19 11:00 06/15/19 11:00 06/15/19 11:00 Oxygen Flow Rate (L/min) 15 Oxygen Delivery Method Mechanical Ventilator Weight: 173 lb 8.061 oz Body Mass Index (BMI) 27.3 Finger Stick Blood Glucose 82 Intake and Output for Last 24 Hours 06/13/19 06/14/19 06/15/19 23:59 23:59 23:59 Intake Total 3174.25 / 3509.25 3227.63 / 3731.85 1600.72 / 1600.72 Output Total 1125 / 1525 2075 / 2225 400 / 400 Balance 2049.25 / 1984.25 1152.63 / 1506.85 1200.72 / 1200.72 General: - - intubated, sedated. RASS score of -4 HEENT: Atraumatic, EOMI, Normocephalic Oral: Dry Mucosa Neck: Supple Lungs: - - decreased breath sounds bibasally, no wheezes or crackles. intubated and sedated Cardiovascular: Normal S1, Normal S2, No murmurs, Tachycardic Abdomen: Bowel Sounds Present, Soft, Non Tender, Non-Distended, No Hepato- splenomegaly Extremities: No clubbing, No cyanosis, No edema, Capillary Refill Less than 3 Seconds Skin: - - multiple track lazar over UEs and LEs; superficial excoriations over chest and abdomen Musculoskeletal: No Tenderness to Palpation of Joints or Extremities Lymphatic: No Cervical, Supraclavicular, or Inguinal Adenopathy Neurological: - - intubated, sedated, RASS score is -4 Microbiology Past 72 Hours 06/13/19 02:46 Blood Culture (Wb) - Right Forearm Blood Culture - Preliminary No growth in 48 hours. 06/13/19 02:15 Blood Culture (Wb) - No Site/Description Given Blood Culture - Preliminary No growth in 48 hours. 06/13/19 02:35 Mucosa - Nasopharyngeal Influenza Types A,B Direct FA ([facility]) - Final Laboratory Results 06/14/19 23:55: POC Glucose 187 H 06/15/19 04:20: WBC 25.6 H, RBC 3.95 L, Hgb 12.3 L, Hct 38.9 L, MCV 98.5 H, MCH 31.1, MCHC 31.6 L, RDW Std Deviation 45.1 H, RDW Coeff of Re 12.3, Plt Count 223, MPV 9.7, Immature Gran % (Auto) 0.800, Neut % (Auto) 79.4 H, Lymph % (Auto) 15.8 L, [place] % (Auto) 3.6, Eos % (Auto) 0.2, Baso % (Auto) 0.2, Absolute Neuts (auto) 20.3 H, Absolute Lymphs (auto) 4.05, Nucleated RBC % 0.1, Differential Comment SCANNED 06/15/19 04:20: Sodium 141, Potassium 4.1, Chloride 110 H, Carbon Dioxide 28.0, Anion Gap 3 L, BUN 33 H, Creatinine 0.96, Estim Creat Clear Calc 78.30, Est GFR (MDRD) Af Amer 106, Est GFR (MDRD) Non-Af 88, BUN/Creatinine Ratio 34.5 H, Glucose 174 H, Calcium 7.9 L 06/15/19 06:14: Specimen Type ART, Sample Site L Radial, pH 7.13 L*, Bicarbonate Actual 25.7, POC Total CO2 28, Base Excess -3 L, O2 Saturation 85 L, O2 % 30, ABG pCO2 77.3 H*, ABG pO2 67 L, Leland Test POS, O2 Delivery Device Vent, Vent Mode CPAP PS, POC PEEP 5, POC Pressure Suppt 5, Blood Gas Notified Whom ICU MD, Blood Gas Notified Time 613 06/15/19 06:59: POC Glucose 193 H Diagnostic Data Chest X-Ray 06/13/19 05:48 IMPRESSION: Stable support lines and tubes. Probable left lung base atelectasis. Electronically Signed: Alfredolillie Pedro, at 6:19 EST Tel , Service support , Abdomen/Pelvis CT 06/13/19 09:34 IMPRESSION: Biliary stent is seen within the common bile duct. Pneumobilia of the biliary tree. Focal atelectasis and/or infiltrate at the left lung base. Electronically Signed: Davis Honeycutt, at 13:29 EST , Service support , Current Medications Acetaminophen (Tylenol Liquid) 650 mg NG Q4H PRN PRN PRN Reason: Pain or Fever Last Admin: 06/13/19 16:09 Dose: 650 mg Documented by: Albuterol Sulfate (Ventolin Aerosols) 2.5 mg INHALATION Q2H PRN PRN PRN Reason: SOB/Wheezing Last Admin: 06/13/19 13:13 Dose: 2.5 mg Documented by: Carvedilol (Coreg) 3.125 mg PO BID [facility] Last Admin: 06/15/19 09:35 Dose: Not Given Documented by: Chlorhexidine Gluconate () 1 each TOPICAL DAILY [facility] Last Admin: 06/15/19 09:34 Dose: 1 each Documented by: Chlorhexidine Gluconate () 15 ml PO BID [facility] Last Admin: 06/15/19 09:34 Dose: 15 ml Documented by: Furosemide (Lasix) 20 mg IV BID@1000,1800 [facility] Last Admin: 06/15/19 09:33 Dose: 20 mg Documented by: Glucagon () 1 mg IM .X1 PRN PRN Reason: Hypoglycemia Heparin Sodium (Porcine) (Heparin Na) 5,000 unit SC Q8 [facility] Last Admin: 06/15/19 05:12 Dose: 5,000 unit Documented by: Propofol (Diprivan) 1,000 mg in 100 mls @ 4.722 mls/hr CONT INF .Q12H [facility]; Protocol Last Titration: 06/15/19 11:00 Dose: 10 mcg/kg/min, 4.7 mls/hr Documented by: Fentanyl () 100 mls @ 2.5 mls/hr IV UD [facility]; Protocol Last Titration: 06/15/19 11:00 Dose: 175 mcg/hr, 17.5 mls/hr Documented by: Dextrose (Dextrose 10%-Water) 250 mls @ 999 mls/hr IV X1 PRN; Protocol PRN Reason: HYPOGLYCEMIA Sodium Chloride () 250 mls @ 15 mls/hr IV .[id number] PRN PRN Reason: Saline Flush Sodium Chloride () 250 mls @ 15 mls/hr IV .[id number] PRN PRN Reason: Additional IVPB Infusion Ceftriaxone Sodium (Rocephin) 1 gm in 50 mls @ 100 mls/hr IV Q24 [facility] Last Infusion: 06/15/19 10:21 Dose: Infused Documented by: Pantoprazole Sodium 40 mg/ (Sodium Chloride) 110 mls @ 330 mls/hr IV Q24 [facility] Last Infusion: 06/15/19 10:00 Dose: Infused Documented by: Metronidazole (Flagyl) 500 mg in 100 mls @ 100 mls/hr IV Q8 [facility] Last Infusion: 06/15/19 06:12 Dose: Infused Documented by: Enteral Nutritional Formula (Vital Af 1.2 [place] Liquid) 1,000 mls @ 70 mls/hr GT .[id number] [facility] Last Admin: 06/15/19 10:39 Dose: Not Given Documented by: Dexmedetomidine HCl 400 mcg/ (Sodium Chloride) 100 mls @ 9.838 mls/hr CONT INF .[id number] [facility]; Protocol Last Titration: 06/15/19 11:00 Dose: 1.5 mcg/kg/hr, 29.5 mls/hr Documented by: Lisinopril (Zestril) 2.5 mg PO DAILY [facility] Last Admin: 06/15/19 09:36 Dose: Not Given Documented by: Methylprednisolone (Solu-Medrol) 40 mg IV Q12 [facility] Quetiapine Fumarate (Seroquel) 50 mg PO BID [facility] Last Admin: 06/15/19 09:32 Dose: 50 mg Documented by: Sodium Chloride () 10 - 40 ml IV UD PRN PRN Reason: SALINE FLUSH Last Admin: 06/15/19 06:06 Dose: 20 ml Documented by: STROKE Vital Signs/Narrative: Vital Signs Pulse Resp BP Pulse Ox 06/15/19 11:00 60 22 H 85/57 L 98 06/15/19 10:00 60 21 H 83/54 L 98 06/15/19 09:00 61 29 H 83/57 L 100 06/15/19 08:00 64 30 H 79/53 L 99 06/15/19 07:20 95 Medical Necessity - Tobacco Use Smoking Status: Former smoker Tobacco Use: Cigarettes Assessment/Plan All Active Problems (Last Reviewed 02/22/19 @ 02:51 by Renato Hutson MD) Cholangitis (Acute) Acute ST elevation myocardial infarction (STEMI) of inferior wall (Acute) Severe sepsis (Acute) Sinus tachycardia by electrocardiogram (Acute) Respiratory infection (Acute) Encounter for observation for suspected nervous system disorder (Acute) Takotsubo cardiomyopathy (Acute) Respiratory failure (Acute) Sepsis (Acute) Leukocytosis (Acute) Intractable abdominal pain (Acute) Cocaine abuse (Resolved) Reaction, drug, adverse (Resolved) 1. Acute hypoxic respiratory failure * Etiology is unclear. remains intubated and sedated * got very agitated this morning as sedatives were being weaned off. Now no precedex only, with RASS score of -4. He became tachypneic during Spontaneous breathing trial today. * On minimal vent settings wtih FiO2 of 30% and PEEP of 5 * Critical care on board. Continue breathing treatments. * Rapid influenza screen was negative. * on IV solumedrol * in positive fluid balance by 4.4L, which could be contributing to the failed breathing trial. He is undergoing a trial of diuresis with lasix. * 2. Sepsis * source of sepsis is unclear * SIRS criteria now / - leucocytosis of 25.6 * on IV ceftriaxone and metronidazole * blood cultures show no growth after 48 hours * CT abdomen and pelvis showed no infectious pathology and showed biliary stent in the common bile duct with pneumobilia of the biliary tree as well as focal atelectasis and or infiltrate of the left lung base. * 2D echo: EF of 30 to 35% with stage I diastolic dysfunction and regional wall motion abnormalities. All the valves look normal with no evidence of endocarditis. Stage I diastolic dysfunction and RVSP was not assessed due to insufficient regurgitant tricuspid inflow. * * 3. Takotsubo cardiomyopathy * STEMI alert was called on admission on account of ST elevation in inferior leads. However coronary arteries were clean though he had EF of about 25%. Patient's been suggestive of Takotsubo cardiomyopathy. * Cardiology on board. * On lisinopril * 4. History of IV drug abuse * 2D echo as under 2; was negative for any evidence of infective endocarditis. Blood cultures negative. * On ceftriaxone and metronidazole, as per critical care * urine tox was positive for opiates. * 5. Non-Hodgkin's lymphoma: * In remission. wbc is 25 today. Does have a history of chronically elevated WBCs likely due to non-Hodgkin's lymphoma. * Will monitor. * 6. Hypothyroidism: on synthroid 7. Chronic hepatitis C: Treatment na?ve. Will monitor. Nutrition: tube feeding DVT prophylaxis: Heparin Code Visit Inpatient E&M: [id number] [facility] L[facility]
[2019-06-15 13:15] LABS: Base Excess 2 mmol/L (-2 to +2); Bicarbonate 26.8 mmol/L (22-26); Blood Gas Specimen Type ART; FI02 40; Mode VC+; O2 Delivery Device Vent; PEEP 8; PO2 73 mmHG (75-100); RR 16; SITE L Brachial; SO2 94 % (95-99); Time Given 1307; Total Carbon Dioxide 28 mmol/L; Vt 500; pCO2 44.6 mmHg (35-45); pH 7.39 (7.35-7.45)
--- NOTE | 2019-06-15 14:12 | PN.CARD_ITS ---
Subjectve: Patient is still intubated, sedated. Appears to be stable from a cardiac standpoint. Objective: Vital Signs Temp Pulse Resp BP Pulse Ox 97.9 F 57 L 24 H 81/51 L 99 06/15/19 12:00 06/15/19 13:00 06/15/19 13:00 06/15/19 13:00 06/15/19 13:00 Oxygen Flow Rate (L/min) 15 Oxygen Delivery Method Mechanical Ventilator Weight: 173 lb 8.061 oz Body Mass Index (BMI) 27.3 Finger Stick Blood Glucose 82 Intake and Output for Last 24 Hours 06/13/19 06/14/19 06/15/19 23:59 23:59 23:59 Intake Total 3174.25 / 3509.25 3227.63 / 3731.85 / Output Total 1125 / 1525 2075 / 2225 1250 / 1250 Balance 2048. / 1152.63 / 1506.85 752.16 / 752.16 General: - - Intubated, sedated Cardiovascular: Regular Rhythm Extremities: No edema Skin: No Rashes Neurological: - 06/15/19 04:20: WBC 25.6 H, RBC 3.95 L, Hgb 12.3 L, Hct 38.9 L, MCV 98.5 H, MCH 31.1, MCHC 31.6 L, Plt Count 223, MPV 9.7, Immature Gran % (Auto) 0.800, Neut % (Auto) 79.4 H, Lymph % (Auto) 15.8 L, [place] % (Auto) 3.6, Eos % (Auto) 0.2, Baso % (Auto) 0.2, Absolute Neuts (auto) 20.3 H, Nucleated RBC % 0.1 06/15/19 04:20: Sodium 141, Potassium 4.1, Chloride 110 H, Carbon Dioxide 28.0, Anion Gap 3 L, BUN 33 H, Creatinine 0.96, Est GFR (MDRD) Af Amer 106, Est GFR (MDRD) Non-Af 88, BUN/Creatinine Ratio 34.5 H, Glucose 174 H, Calcium 7.9 L 06/15/19 06:14: pH 7.13 L*, Bicarbonate Actual 25.7, POC Total CO2 28, Base Excess -3 L, O2 Saturation 85 L, ABG pCO2 77.3 H*, ABG pO2 67 L, Leland Test POS 06/15/19 13:08: pH 7.39, Bicarbonate Actual 26.8 H, POC Total CO2 28, Base Excess 2, O2 Saturation 94 L, ABG pCO2 44.6, ABG pO2 73 L Rhythm: EKG: ECHO: Stress Test: Cardiac Cath: PCI: CT Surgery: Holter monitor: EPS: PPM: CXR: Chest CT Scan: Medical Necessity - Tobacco Use Smoking Status: Former smoker Tobacco Use: Cigarettes Assessment/Plan 1. Suspected inferior ST elevation NH: Coronary angiography revealed no significant coronary artery disease. Wall motion abnormalities are consistent with Takotsubo cardiomyopathy. Continue low-dose MARITZA inhibitor and a beta- consuelo as blood pressure allows. 2. Takotsubo cardiomyopathy: Management as described above. We will sign off at this time. Please let us know if we can be of any further assistance.
[2019-06-15 15:11] LABS: Bedside Glucose 163 mg/dL (70-110)
[2019-06-15 18:36] LABS: Bedside Glucose 168 mg/dL (70-110)
[2019-06-15] MEDS: Vital AF 1.2 Cal Liquid 1,000 ML 70 ML GT (19:31)
[2019-06-16] VITALS (41 sets, daily range): BP systolic 89–124; BP diastolic 54–96; PULSE 52–134; RESP 12–57; TEMP 36.2–37.4; O2SAT 40–98
[2019-06-16] MEDS: fentaNYL drip 100 ML 17.5 MCG IV
[2019-06-16 00:11] LABS: Bedside Glucose 161 mg/dL (70-110)
[2019-06-16] MEDS: CHLORHEXIDINE GLUC 2% CLOTH 1 EACH TOWELETTE TOPICAL (03:52)
--- NOTE | 2019-06-16 04:03 | NURSING ---
Titration of Fentanyl and Precedex for SAT. Pt is relaxed at this time, and following commands. Shakes head appropriately to yes/no questions.
[2019-06-16] MEDS: TITRATION PARAMETER CHANGE 1 EACH IV (04:04)
[2019-06-16 05:24] LABS: Absolute Neutrophil Count 18.6 X10^3/uL (2.0-7.7); Basophil# 0.06 X10^3/uL; Basophil% 0.3 % (0-1); Hematocrit 40.5 % (40-54); Hemoglobin 12.9 g/dL (13.0-16.5); Lymphocyte % 16.2 % (19-41); Mean Corp Hgb Conc 31.9 g/dL (32-36); Mean Corpuscular Hgb 31.9 pg (27.0-32.0); Mean Platelet Vol. 9.8 fl (6.2-12.0); Monocyte# 0.84 X10^3/uL; Monocyte% 3.6 % (0-10); NRBC Flagged by Analyzer 0.1 % (0-5); Neutrophil # 18.57 X10^3/uL (2.7-7.7); Neutrophil % 78.9 % (47-70); Platelet Count 247 K/mm3 (150-450); RBC Distribution Width CV 12.4 % (11.6-14.6); Red Blood Count 4.05 M/mm3 (4.6-6.2); White Blood Count 23.5 K/mm3 (4.4-11.0)
[2019-06-16] MEDS: Heparin Injection (Vial) 5,000 UNIT/ML VIAL 5000 UNIT SC ×3 (05:25→21:29)
[2019-06-16 05:36] LABS: Anion Gap 3 (5-15); BUN 38 mg/dL (7-18); BUN/Creat Ratio 44.2 RATIO (10-20); Chloride 110 mmol/L (98-107); Creatinine, Serum 0.86 mg/dL (0.70-1.30); EST Glomerular Filtration Rate 99 mL/min (>60); Est Glom Filt Rate - Afr Amer 120 mL/min (>60); Glucose 155 mg/dL (74-106); Potassium 4.4 mmol/L (3.5-5.1); Sodium Level 142 mmol/L (136-145)
[2019-06-16 06:06] LABS: Allen Test POS; Base Excess 4 mmol/L (-2 to +2); Bicarbonate 27.9 mmol/L (22-26); Blood Gas Specimen Type ART; FI02 40; Mode CPAP PS; O2 Delivery Device Vent; PEEP 8; PO2 74 mmHG (75-100); PS 5; SITE L Radial; SO2 95 % (95-99); Time Given 555; Total Carbon Dioxide 29 mmol/L; pCO2 42.1 mmHg (35-45); pH 7.43 (7.35-7.45)
--- NOTE | 2019-06-16 06:39 | PCM.PN.INT ---
Subjective: Patient did okay overnight. Patient was tolerating tube feeds until they were held for a spontaneous breathing trial. Patient did have a sinus pause reported following a coughing episode. Patient was able to tolerate a 1 hour spontaneous breathing trial this morning with 50 of fentanyl and Precedex. Patient was successfully extubated under my supervision. General: Alert, No apparent distress, - - Appears older than stated age. HEENT: Atraumatic, PERRLA, EOMI, Normocephalic, - - Slight scleral injection without icterus Oral: Moist Mucosa, No Gingival or Mucosal Lesions/ Ulcerations Neck: Supple, No JVD, No Nodes, Trachea Midline Lungs: No rhonchi, No wheeze, Diminished, Rales Cardiovascular: Regular Rhythm, Normal S1, Normal S2, No murmurs, Bradycardic, No rub noted, No Gallop Abdomen: Bowel Sounds Present, Soft, Non Tender, Non-Distended Extremities: No clubbing, No cyanosis, Capillary Refill Less than 3 Seconds, Edema Skin: No rashes, No breakdown Musculoskeletal: No Tenderness to Palpation of Joints or Extremities Lymphatic: No Cervical, Supraclavicular, or Inguinal Adenopathy Neurological: Cranial nerves II-XII grossly intact, Neuro grossly intact, Motor Exam 5/5 strength throughout Psych/Mental Status: Normal Affect, Appropriate Vital Signs Temp Pulse Resp BP Pulse Ox 36.9 C 56 L 22 H 96/66 97 06/16/19 04:00 06/16/19 06:00 06/16/19 06:00 06/16/19 06:00 06/16/19 06:00 Oxygen Flow Rate (L/min) 15 Oxygen Delivery Method Room Air Weight: 79.5 kg Body Mass Index (BMI) 27.3 Finger Stick Blood Glucose 82 Intake and Output for Last 24 Hours 06/14/19 06/15/19 06/16/19 23:59 23:59 23:59 Intake Total 3227.63 / 3731.85 3247.39 / 3394.52 735.74 / 735.74 Output Total 2075 / 2225 2600 / 2600 300 / 300 Balance 1152.63 / 1506.85 647.39 / 794.52 435.74 / 435.74 Labs (Last 48 Hours) 06/14/19 06/14/19 06/15/19 06:47 23:55 04:20 WBC 25.6 H RBC 3.95 L Hgb 12.3 L Hct 38.9 L MCV 98.5 H MCH 31.1 MCHC 31.6 L RDW Std Deviation 45.1 H RDW Coeff of Re 12.3 Plt Count 223 MPV 9.7 Immature Gran % (Auto) 0.800 Neut % (Auto) 79.4 H Lymph % (Auto) 15.8 L [place] % (Auto) 3.6 Eos % (Auto) 0.2 Baso % (Auto) 0.2 Absolute Neuts (auto) 20.3 H Absolute Lymphs (auto) 4.05 Nucleated RBC % 0.1 Differential Comment SCANNED Specimen Type Sample Site pH Bicarbonate Actual POC Total CO2 Base Excess O2 Saturation O2 % ABG pCO2 ABG pO2 Leland Test Respiration Rate O2 Delivery Device Minute Volume Vent Mode Tidal Volume POC PEEP POC Pressure Suppt Blood Gas Notified Whom Blood Gas Notified Time Sodium Potassium Chloride Carbon Dioxide Anion Gap BUN Creatinine Estim Creat Clear Calc Est GFR (MDRD) Af Amer Est GFR (MDRD) Non-Af BUN/Creatinine Ratio Glucose Calcium POC Glucose 142 H 187 H 06/15/19 06/15/19 06/15/19 04:20 06:14 06:59 WBC RBC Hgb Hct MCV MCH MCHC RDW Std Deviation RDW Coeff of Re Plt Count MPV Immature Gran % (Auto) Neut % (Auto) Lymph % (Auto) [place] % (Auto) Eos % (Auto) Baso % (Auto) Absolute Neuts (auto) Absolute Lymphs (auto) Nucleated RBC % Differential Comment Specimen Type ART Sample Site L Radial pH 7.13 L* Bicarbonate Actual 25.7 POC Total CO2 28 Base Excess -3 L O2 Saturation 85 L O2 % 30 ABG pCO2 77.3 H* ABG pO2 67 L Leland Test POS Respiration Rate O2 Delivery Device Vent Minute Volume Vent Mode CPAP PS Tidal Volume POC PEEP 5 POC Pressure Suppt 5 Blood Gas Notified Whom ICU MD Blood Gas Notified Time 613 Sodium 141 Potassium 4.1 Chloride 110 H Carbon Dioxide 28.0 Anion Gap 3 L BUN 33 H Creatinine 0.96 Estim Creat Clear Calc 78.30 Est GFR (MDRD) Af Amer 106 Est GFR (MDRD) Non-Af 88 BUN/Creatinine Ratio 34.5 H Glucose 174 H Calcium 7.9 L POC Glucose 193 H 06/15/19 06/15/1920 13:08 15:03 18:33 WBC RBC Hgb Hct MCV MCH MCHC RDW Std Deviation RDW Coeff of Re Plt Count MPV Immature Gran % (Auto) Neut % (Auto) Lymph % (Auto) [place] % (Auto) Eos % (Auto) Baso % (Auto) Absolute Neuts (auto) Absolute Lymphs (auto) Nucleated RBC % Differential Comment Specimen Type ART Sample Site L Brachial pH 7.39 Bicarbonate Actual 26.8 H POC Total CO2 28 Base Excess 2 O2 Saturation 94 L O2 % 40 ABG pCO2 44.6 ABG pO2 73 L Leland Test Respiration Rate 16 O2 Delivery Device Vent Minute Volume 14.00 Vent Mode VC+ Tidal Volume 500 POC PEEP 8 POC Pressure Suppt Blood Gas Notified Whom ICU MD Blood Gas Notified Time 1307 Sodium Potassium Chloride Carbon Dioxide Anion Gap BUN Creatinine Estim Creat Clear Calc Est GFR (MDRD) Af Amer Est GFR (MDRD) Non-Af BUN/Creatinine Ratio Glucose Calcium POC Glucose 163 H 168 H 06/16/19 06/16/19 06/16/19 00:02 05:15 05:15 WBC 23.5 H RBC 4.05 L Hgb 12.9 L Hct 40.5 MCV 100.0 H MCH 31.9 MCHC 31.9 L RDW Std Deviation 46.0 H RDW Coeff of Re 12.4 Plt Count 247 MPV 9.8 Immature Gran % (Auto) 1.000 H Neut % (Auto) 78.9 H Lymph % (Auto) 16.2 L [place] % (Auto) 3.6 Eos % (Auto) 0.0 Baso % (Auto) 0.3 Absolute Neuts (auto) 18.6 H Absolute Lymphs (auto) 3.80 Nucleated RBC % 0.1 Differential Comment Specimen Type Sample Site pH Bicarbonate Actual POC Total CO2 Base Excess O2 Saturation O2 % ABG pCO2 ABG pO2 Leland Test Respiration Rate O2 Delivery Device Minute Volume Vent Mode Tidal Volume POC PEEP POC Pressure Suppt Blood Gas Notified Whom Blood Gas Notified Time Sodium 142 Potassium 4.4 Chloride 110 H Carbon Dioxide 29.0 Anion Gap 3 L BUN 38 H Creatinine 0.86 Estim Creat Clear Calc 87.40 Est GFR (MDRD) Af Amer 120 Est GFR (MDRD) Non-Af 99 BUN/Creatinine Ratio 44.2 H Glucose 155 H Calcium 8.0 L POC Glucose 161 H 06/16/19 06:01 WBC RBC Hgb Hct MCV MCH MCHC RDW Std Deviation RDW Coeff of Re Plt Count MPV Immature Gran % (Auto) Neut % (Auto) Lymph % (Auto) [place] % (Auto) Eos % (Auto) Baso % (Auto) Absolute Neuts (auto) Absolute Lymphs (auto) Nucleated RBC % Differential Comment Specimen Type ART Sample Site L Radial pH 7.43 Bicarbonate Actual 27.9 H POC Total CO2 29 Base Excess 4 H O2 Saturation 95 O2 % 40 ABG pCO2 42.1 ABG pO2 74 L Leland Test POS Respiration Rate O2 Delivery Device Vent Minute Volume Vent Mode CPAP PS Tidal Volume POC PEEP 8 POC Pressure Suppt 5 Blood Gas Notified Whom ICU MD Blood Gas Notified Time 555 Sodium Potassium Chloride Carbon Dioxide Anion Gap BUN Creatinine Estim Creat Clear Calc Est GFR (MDRD) Af Amer Est GFR (MDRD) Non-Af BUN/Creatinine Ratio Glucose Calcium POC Glucose Microbiology 06/13/19 02:46 Blood Culture (Wb) - Right Forearm Blood Culture - Preliminary No growth in 48 hours. 06/13/19 02:15 Blood Culture (Wb) - No Site/Description Given Blood Culture - Preliminary No growth in 48 hours. Medical Necessity - Tobacco Use Smoking Status: Former smoker Tobacco Use: Cigarettes Assessment/Plan All Active Problems (Last Reviewed 02/22/19 @ 02:51 by Renato Hutson MD) Cholangitis (Acute) Acute ST elevation myocardial infarction (STEMI) of inferior wall (Acute) Severe sepsis (Acute) Sinus tachycardia by electrocardiogram (Acute) Respiratory infection (Acute) Encounter for observation for suspected nervous system disorder (Acute) Takotsubo cardiomyopathy (Acute) Respiratory failure (Acute) Sepsis (Acute) Leukocytosis (Acute) Intractable abdominal pain (Acute) Cocaine abuse (Resolved) Reaction, drug, adverse (Resolved) RECOMMENDATIONS: 1. Complete 5 days of antibiotics 2. Discontinue Precedex and fentanyl. Watch for possible opiate withdrawal 3. Continue beta-consuelo per cardiology 4. Bedside swallow evaluation. Transition to p.o. medications if tolerates bedside swallow evaluation 5. Increase activity as tolerated IMPRESSIONS: 1. Acute hypoxic respiratory failure Unclear etiology at this time. Patient was tachycardic and hypertensive on presentation, so flash pulmonary edema would be a possibility. Patient's heart catheterization showed no endovascular issues, but EF was reduced to 25% from 75% previously. Patient's fever curve appears to be improving on antibiotics. Echocardiogram was not suggestive of endocarditis. Patient able to be successfully liberated from the ventilator this morning. We will continue with diuresis. We will continue with Seroquel for now. If patient tolerates swallow evaluation, can transition over to p.o. prednisone, Protonix and Lasix. 2. Takotsubo cardiomyopathy/acute systolic congestive heart failure Cardiology is following. Patient did have a heart catheterization suggestive of clean coronary arteries. Patient's heart rate has been lower, but this may be secondary to Precedex therapy. This has been discontinued. Continue to monitor blood pressures and heart rate. Clinical suspicion for vagal maneuver leading to sinus pause. Would defer to cardiology. Chest x-ray did not show any significant infiltrates at that time, so doubt lobar pneumonia. 3. History of non-Hodgkin's lymphoma/leukocytosis Patient with significant leukocytosis on presentation. This does appear to be improving with current therapy. Unclear if this is secondary to a stress response, acute infection or possible recurrence of Hodgkin's lymphoma. Patient will need to be watched carefully for thrombotic complications. 4. Possible sepsis Patient does have significant leukocytosis and fever. Patient's blood pressure has been okay. Tachycardia may be secondary to primary cardiac condition, but patient also is at risk for infection. Unclear if this is secondary to endocarditis given recent IV drug use versus occult abscess. CT of the abdomen was not suggestive of infectious etiology/abscess. Will treat for total of 5 days given lack of fever and negative blood cultures. TIME: 31 minutes critical care time spent addressing patient's acute hypoxic respiratory failure, sepsis, cardiomyopathy, review of all data and collaboration with care team (5:40 AM to 6:40 AM) Code Visit [id number]: [id number] Critical care first hour
[2019-06-16] MEDS: Furosemide 40 MG/4 ML Vial IV (07:55)
--- NOTE | 2019-06-16 09:35 | CM.UR ---
Participated in interdisciplinary rounds this am. Patient has been extubated and is on bipap currently. States at this time that he does not want re-intubated but is not willing to change code status. SW will continue to follow for any needs that arise and for dc planning. Met with patient after rounds. Discussed his family drama. States that his kids have a problem with his younger . Instructed on advance directives. Patient states that it is a difficult decision because someone will be angry no matter which way he decides. States that if he chooses his , his daughter will probably beat her up. Asked if he can make 2 people HCPOA. Explained that he cannot, especially if they are not going to agree on what is best option. Explained that he needs to do a living will that spells out what he wants done and then pick someone who will follow his wishes. States he needs to think about it. Explained that I will alert the SW and have her stop up early. Explained if he decides, she will be available to help him complete the forms. Verb understanding. Douglas Serna RN, CCM.
--- NOTE | 2019-06-16 10:01 | PCM.PN.HOSP ---
Patient Problems: Active and Suspected Problems (Last Reviewed 02/22/19 @ 02:51 by Renato Hutson MD) Acute ST elevation myocardial infarction (STEMI) of inferior wall (Acute) Severe sepsis (Acute) Sinus tachycardia by electrocardiogram (Acute) Respiratory infection (Acute) Encounter for observation for suspected nervous system disorder (Acute) Takotsubo cardiomyopathy (Acute) Respiratory failure (Acute) Subjective: Patient seen and examined. He was successfully extubated this morning and was initially on oxygen but had to be put on BiPAP on account of flash pulmonary edema. Patient on no complaints this morning at time of review. Labs and vitals reviewed. Respiratory rate was on 29 this morning while on BiPAP. WBC is 23.5. Patient cumulative positive balance by 4.45 L since admission. He is receiving IV Lasix to help diurese him. Vitals/I&O's: Vital Signs Temp Pulse Resp BP Pulse Ox 97.2 F L 85 29 H 118/96 H 96 06/16/19 08:00 06/16/19 09:00 06/16/19 09:00 06/16/19 09:00 06/16/19 09:00 Oxygen Flow Rate (L/min) 3 Oxygen Delivery Method Bi-pap Weight: 175 lb 4.28 oz Body Mass Index (BMI) 27.3 Finger Stick Blood Glucose 82 Intake and Output for Last 24 Hours 06/14/19 06/15/19 06/16/19 23:59 23:59 23:59 Intake Total 3227.63 / 3731.85 3247.39 / 3394.52 884.51 / 884.51 Output Total 2075 / 2225 2600 / 2600 300 / 300 Balance 1152.63 / 1506.85 647.39 / 794.52 584.51 / 584.51 General: Alert, Oriented x3, Cooperative, No apparent distress HEENT: Atraumatic, PERRLA, EOMI, Normocephalic Oral: Moist Mucosa Neck: Supple, No JVD, Negative Carotid Bruits Lungs: Tachypneic, - - few fine crackles bibasally, on BIPAP. Cardiovascular: Regular rate, Regular Rhythm, Normal S1, Normal S2, No murmurs Abdomen: Bowel Sounds Present, Soft, Non Tender, Non-Distended, No Hepato-splenomegaly Extremities: No clubbing, No cyanosis, No edema, Capillary Refill Less than 3 Seconds Skin: No rashes, No breakdown Musculoskeletal: No Tenderness to Palpation of Joints or Extremities Lymphatic: No Cervical, Supraclavicular, or Inguinal Adenopathy Neurological: Cranial nerves II-XII grossly intact, Neuro grossly intact, Motor Exam 5/5 strength throughout Psych/Mental Status: Normal Affect, Appropriate, Alert and oriented to time, place, person, mood and affect Microbiology Past 72 Hours 06/13/19 02:46 Blood Culture (Wb) - Right Forearm Blood Culture - Preliminary No growth in 48 hours. 06/13/19 02:15 Blood Culture (Wb) - No Site/Description Given Blood Culture - Preliminary No growth in 48 hours. Laboratory Results 06/15/19 13:08: Specimen Type ART, Sample Site L Brachial, pH 7.39, Bicarbonate Actual 26.8 H, POC Total CO2 28, Base Excess 2, O2 Saturation 94 L, O2 % 40, ABG pCO2 44.6, ABG pO2 73 L, Respiration Rate 16, O2 Delivery Device Vent, Minute Volume 14.00, Vent Mode VC+, Tidal Volume 500, POC PEEP 8, Blood Gas Notified Whom ICU MD, Blood Gas Notified Time 1307 06/15/19 15:03: POC Glucose 163 H 06/15/19 18:33: POC Glucose 168 H 06/16/19 00:02: POC Glucose 161 H 06/16/19 05:15: WBC 23.5 H, RBC 4.05 L, Hgb 12.9 L, Hct 40.5, MCV 100.0 H, MCH 31.9, MCHC 31.9 L, RDW Std Deviation 46.0 H, RDW Coeff of Re 12.4, Plt Count 247, MPV 9.8, Immature Gran % (Auto) 1.000 H, Neut % (Auto) 78.9 H, Lymph % (Auto) 16.2 L, [place] % (Auto) 3.6, Eos % (Auto) 0.0, Baso % (Auto) 0.3, Absolute Neuts (auto) 18.6 H, Absolute Lymphs (auto) 3.80, Nucleated RBC % 0.1 06/16/19 05:15: Sodium 142, Potassium 4.4, Chloride 110 H, Carbon Dioxide 29.0, Anion Gap 3 L, BUN 38 H, Creatinine 0.86, Estim Creat Clear Calc 87.40, Est GFR (MDRD) Af Amer 120, Est GFR (MDRD) Non-Af 99, BUN/Creatinine Ratio 44.2 H, Glucose 155 H, Calcium 8.0 L 06/16/19 06:01: Specimen Type ART, Sample Site L Radial, pH 7.43, Bicarbonate Actual 27.9 H, POC Total CO2 29, Base Excess 4 H, O2 Saturation 95, O2 % 40, ABG pCO2 42.1, ABG pO2 74 L, Leland Test POS, O2 Delivery Device Vent, Vent Mode CPAP PS, POC PEEP 8, POC Pressure Suppt 5, Blood Gas Notified Whom ICU MD, Blood Gas Notified Time 555 Diagnostic Data Chest X-Ray 06/13/19 05:48 IMPRESSION: Stable support lines and tubes. Probable left lung base atelectasis. Electronically Signed: Odell Vasquez, at 6:19 EST Tel , Service support , Abdomen/Pelvis CT 06/13/19 09:34 IMPRESSION: Biliary stent is seen within the common bile duct. Pneumobilia of the biliary tree. Focal atelectasis and/or infiltrate at the left lung base. Electronically Signed: Davis Honeycutt, at 13:29 EST , Service support , Current Medications Acetaminophen (Tylenol Liquid) 650 mg NG Q4H PRN PRN PRN Reason: Pain or Fever Last Admin: 06/13/19 16:09 Dose: 650 mg Documented by: Albuterol Sulfate (Ventolin Aerosols) 2.5 mg INHALATION Q2H PRN PRN PRN Reason: SOB/Wheezing Last Admin: 06/13/19 13:13 Dose: 2.5 mg Documented by: Carvedilol (Coreg) 3.125 mg PO BID MARISSA Last Admin: 06/15/19 21:39 Dose: Not Given Documented by: Chlorhexidine Gluconate () 1 each TOPICAL DAILY MARISSA Last Admin: 06/16/19 03:52 Dose: 1 each Documented by: Furosemide (Lasix) 80 mg IV BID@1000,1800 ON LICENSE OF [facility] Glucagon () 1 mg IM .X1 PRN PRN Reason: Hypoglycemia Heparin Sodium (Porcine) (Heparin Na) 5,000 unit SC Q8 ON LICENSE OF [facility] Last Admin: 06/16/19 05:25 Dose: 5,000 unit Documented by: Dextrose (Dextrose 10%-Water) 250 mls @ 999 mls/hr IV X1 PRN; Protocol PRN Reason: HYPOGLYCEMIA Sodium Chloride () 250 mls @ 15 mls/hr IV .[id number] PRN PRN Reason: Saline Flush Sodium Chloride () 250 mls @ 15 mls/hr IV .[id number] PRN PRN Reason: Additional IVPB Infusion Ceftriaxone Sodium (Rocephin) 1 gm in 50 mls @ 100 mls/hr IV Q24 ON LICENSE OF [facility] Last Infusion: 06/15/19 10:21 Dose: Infused Documented by: Pantoprazole Sodium 40 mg/ (Sodium Chloride) 110 mls @ 330 mls/hr IV Q24 ON LICENSE OF [facility] Last Infusion: 06/15/19 10:00 Dose: Infused Documented by: Metronidazole (Flagyl) 500 mg in 100 mls @ 100 mls/hr IV Q8 ON LICENSE OF [facility] Last Infusion: 06/16/19 06:25 Dose: Infused Documented by: Lisinopril (Zestril) 2.5 mg PO DAILY ON LICENSE OF [facility] Last Admin: 06/15/19 09:36 Dose: Not Given Documented by: Methylprednisolone (Solu-Medrol) 40 mg IV Q12 ON LICENSE OF [facility] Last Admin: 06/15/19 21:11 Dose: 40 mg Documented by: Nicotine (Nicoderm Cq (Pbkc)) 21 mg TRANSDERM. DAILY ON LICENSE OF [facility] Quetiapine Fumarate (Seroquel) 50 mg PO BID ON LICENSE OF [facility] Last Admin: 06/15/19 21:11 Dose: 50 mg Documented by: Sodium Chloride () 10 - 40 ml IV UD PRN PRN Reason: SALINE FLUSH Last Admin: 06/15/19 06:06 Dose: 20 ml Documented by: STROKE Vital Signs/Narrative: Vital Signs Temp Pulse Resp BP Pulse Ox 06/16/19 09:00 85 29 H 118/96 H 96 06/16/19 08:30 40 06/16/19 08:13 103 H 45 H 93 06/16/19 08:00 97.2 F L 106 H 36 H 115/86 H 93 06/16/19 07:00 57 L 36 H 93/57 L 93 06/16/19 06:30 65 18 93 Medical Necessity - Tobacco Use Smoking Status: Former smoker Tobacco Use: Cigarettes Assessment/Plan All Active Problems (Last Reviewed 02/22/19 @ 02:51 by Renato Hutosn MD) Cholangitis (Acute) Acute ST elevation myocardial infarction (STEMI) of inferior wall (Acute) Severe sepsis (Acute) Sinus tachycardia by electrocardiogram (Acute) Respiratory infection (Acute) Encounter for observation for suspected nervous system disorder (Acute) Takotsubo cardiomyopathy (Acute) Respiratory failure (Acute) Sepsis (Acute) Leukocytosis (Acute) Intractable abdominal pain (Acute) Cocaine abuse (Resolved) Reaction, drug, adverse (Resolved) 1. Acute hypoxic respiratory failure successfully extubated this morning. Went into flash pulmonary edema, and had to be put on BIPAP on IV solumedrol; started on lasix On minimal vent settings wtih FiO2 of 30% and PEEP of 5 Critical care on board. Continue breathing treatments. Rapid influenza screen was negative. on IV solumedrol in positive fluid balance by 4.4L, which could be contributing to the failed breathing trial. He is undergoing a trial of diuresis with lasix. 2. Sepsis source of sepsis is unclear SIRS criteria now 06/09 - leucocytosis of 23,6; does appear to have chronic leucocytosis o/a of sepsis on IV ceftriaxone and metronidazole blood cultures show no growth after [address] abdomen and pelvis showed no infectious pathology and showed biliary stent in the common bile duct with pneumobilia of the biliary tree as well as focal atelectasis and or infiltrate of the left lung base. 2D echo: EF of 30 to 35% with stage I diastolic dysfunction and regional wall motion abnormalities. All the valves look normal with no evidence of endocarditis. Stage I diastolic dysfunction and RVSP was not assessed due to insufficient regurgitant tricuspid inflow. 3. Takotsubo cardiomyopathy cardiac cath showed clean coronaries. EF is ~ 25%. Cardiology on board. On lisinopril 4. History of IV drug abuse 2D echo as under 2; was negative for any evidence of infective endocarditis. Blood cultures negative. On ceftriaxone and metronidazole, as per critical care 5. Non-Hodgkin's lymphoma: In remission. wbc is 23.6 today. Does have a history of chronically elevated WBCs likely due to non-Hodgkin's lymphoma. Will monitor. 6. Hypothyroidism: on synthroid 7. Chronic hepatitis C: Treatment na?ve. Will monitor. DVT prophylaxis: Heparin Code Visit Inpatient E&M: 92122 Subs Hosp L3
[2019-06-16] MEDS: 0.9% Saline Lock 10 ML Syringe IV (10:02)
[2019-06-16] MEDS: Lisinopril 2.5 MG Tablet PO (10:06)
[2019-06-16] MEDS: Carvedilol 3.125 MG TABLET PO ×2 (10:06→21:29)
[2019-06-16] MEDS: QUEtiapine 25 MG Tablet 50 MG PO ×2 (10:06→21:28)
[2019-06-16] MEDS: Ceftriaxone 1 GM/50 ML BAG IV (10:56)
[2019-06-16] MEDS: Furosemide 100 MG/10 ML Vial 80 MG IV ×2 (10:59→17:58)
[2019-06-16] MEDS: Albuterol 2.5 MG/3 ML VIAL.NEB. INHALATION ×3 (11:32→20:05)
--- NOTE | 2019-06-16 12:30 | CASEMGMT ---
SOCIAL WORK MET WITH PATIENT TO DISCUSS ADVANCED DIRECTIVES. PATIENT ALERT AND ORIENTED. 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 HPOA COMPLETED. ORIGINAL COPY PROVIDED TO PATIENT AND COPY ADDED TO CHART. PATIENT STATES DOES NOT WANT KNOWING HE HAS NAMED SON FABBY AND THAT HE WILL BE GOING HOME WITH HIS SON AT DISCHARGE. EMOTIONAL SUPPORT PROVIDED. NURSE KOJO. Gabriela KINNEY, PUBLIC RELATIONS WRITER, POWERTRAIN DESIGN ENGINEER.
--- NOTE | 2019-06-16 23:35 | CPS ---
decreased FIO2 to 35%
[2019-06-17] VITALS (29 sets, daily range): BP systolic 95–122; BP diastolic 68–94; PULSE 97–121; RESP 16–44; TEMP 36.1–37.1; O2SAT 93–97
[2019-06-17 00:26] LABS: Bedside Glucose 194 mg/dL (70-110)
[2019-06-17] MEDS: CHLORHEXIDINE GLUC 2% CLOTH 1 EACH TOWELETTE TOPICAL (02:18)
--- NOTE | 2019-06-17 04:32 | CPS ---
decreased FIO2 to 29%
[2019-06-17] MEDS: Heparin Injection (Vial) 5,000 UNIT/ML VIAL 5000 UNIT SC ×3 (05:00→21:11)
[2019-06-17 06:16] LABS: Absolute Lymphocyte Count 4.13 X10^3/uL (0.83-4.51); Absolute Neutrophil Count 15.7 X10^3/uL (2.0-7.7); Basophil# 0.03 X10^3/uL; Basophil% 0.1 % (0-1); Hematocrit 46.4 % (40-54); Hemoglobin 14.7 g/dL (13.0-16.5); Lymphocyte # 4.13 X10^3/ul (4.0); Lymphocyte % 19.7 % (19-41); Mean Corp Hgb Conc 31.7 g/dL (32-36); Mean Corpuscular Hgb 30.9 pg (27.0-32.0); Mean Corpuscular Volume 97.7 fL (80-94); Mean Platelet Vol. 9.5 fl (6.2-12.0); Monocyte# 0.98 X10^3/uL; Monocyte% 4.7 % (0-10); NRBC Flagged by Analyzer 0 % (0-5); Neutrophil % 74.8 % (47-70); Platelet Count 317 K/mm3 (150-450); RBC Distribution Width CV 12.4 % (11.6-14.6); RBC Distribution Width SD 44.7 fl (35.1-43.9); Red Blood Count 4.75 M/mm3 (4.6-6.2)
[2019-06-17 06:28] LABS: Anion Gap 5 (5-15); BUN 34 mg/dL (7-18); BUN/Creat Ratio 35.3 RATIO (10-20); Calcium,Total 8.5 mg/dL (8.5-10.1); Chloride 105 mmol/L (98-107); Creatinine, Serum 0.96 mg/dL (0.70-1.30); EST Glomerular Filtration Rate 87 mL/min (>60); Est Glom Filt Rate - Afr Amer 106 mL/min (>60); Glucose 145 mg/dL (74-106); Magnesium 2.4 mg/dL (1.6-2.6); Phosphorus 3.2 mg/dL (2.5-4.9); Potassium 3.5 mmol/L (3.5-5.1); Sodium Level 143 mmol/L (136-145)
--- NOTE | 2019-06-17 06:52 | PN_ITS ---
Subjective: Patient did well overnight. Patient did diurese well with increased diuretics and has been able to be left on Airvo at 30% overnight with good response. Patient continues to have intermittent periods of tachypnea, but no paradoxical respiratory movement. Patient is interested in restarting all of his home medications. General: Alert, Oriented x3, Cooperative, - - Anxious, but no conversational dyspnea. Appears older than stated age. HEENT: Atraumatic, PERRLA, EOMI, Normocephalic, - - No scleral icterus or injection noted Oral: Moist Mucosa, No Gingival or Mucosal Lesions/ Ulcerations Neck: Supple, No JVD, No Nodes, Trachea Midline Lungs: No rhonchi, No rales, Diminished, Wheezes - Sporadic, - - Symmetric expansion. No dullness to percussion. Cardiovascular: Normal S1, Normal S2, No murmurs, No rub noted, No Gallop, Tachycardic Abdomen: Bowel Sounds Present, Soft, Non Tender, Non-Distended Extremities: No clubbing, No cyanosis, Capillary Refill Less than 3 Seconds, Edema - Trace lower extremity Skin: No rashes, No breakdown Musculoskeletal: No Tenderness to Palpation of Joints or Extremities Lymphatic: No Cervical, Supraclavicular, or Inguinal Adenopathy Neurological: Cranial nerves II-XII grossly intact, Neuro grossly intact, Motor Exam 5/5 strength throughout Psych/Mental Status: Alert and oriented to time, place, person, mood and affect Vital Signs Temp Pulse Resp BP Pulse Ox 37.1 C 97 42 H 112/81 H 97 06/17/19 04:00 06/17/19 06:00 06/17/19 06:00 06/17/19 06:00 06/17/19 06:00 Oxygen Flow Rate (L/min) 6 Oxygen Delivery Method CPAP Weight: 75.4 kg Body Mass Index (BMI) 27.3 Finger Stick Blood Glucose 82 Intake and Output for Last 24 Hours 06/15/19 06/16/19 06/17/19 23:59 23:59 23:59 Intake Total 3247.39 / 3394.52 1874.51 / 1874.51 340 / 340 Output Total 2600 / 2600 3950 / 3950 250 / 250 Balance 647.39 / 794.52 -2075.49 / -2075.49 90 / 90 Labs (Last 48 Hours) 06/15/19 06/15/19 06/15/19 06:59 13:08 15:03 WBC RBC Hgb Hct MCV MCH MCHC RDW Std Deviation RDW Coeff of Re Plt Count MPV Immature Gran % (Auto) Neut % (Auto) Lymph % (Auto) Creek % (Auto) Eos % (Auto) Baso % (Auto) Absolute Neuts (auto) Absolute Lymphs (auto) Nucleated RBC % Specimen Type ART Sample Site L Brachial pH 7.39 Bicarbonate Actual 26.8 H POC Total CO2 28 Base Excess 2 O2 Saturation 94 L O2 % 40 ABG pCO2 44.6 ABG pO2 73 L Leland Test Respiration Rate 16 O2 Delivery Device Vent Minute Volume 14.00 Vent Mode VC+ Tidal Volume 500 POC PEEP 8 POC Pressure Suppt Blood Gas Notified Whom ICU MD Blood Gas Notified Time 1307 Sodium Potassium Chloride Carbon Dioxide Anion Gap BUN Creatinine Estim Creat Clear Calc Est GFR (MDRD) Af Amer Est GFR (MDRD) Non-Af BUN/Creatinine Ratio Glucose Calcium Phosphorus Magnesium POC Glucose 193 H 163 H 06/15/19 06/16/19 06/16/19 18:33 00:02 05:15 WBC 23.5 H RBC 4.05 L Hgb 12.9 L Hct 40.5 MCV 100.0 H MCH 31.9 MCHC 31.9 L RDW Std Deviation 46.0 H RDW Coeff of Re 12.4 Plt Count 247 MPV 9.8 Immature Gran % (Auto) 1.000 H Neut % (Auto) 78.9 H Lymph % (Auto) 16.2 L Creek % (Auto) 3.6 Eos % (Auto) 0.0 Baso % (Auto) 0.3 Absolute Neuts (auto) 18.6 H Absolute Lymphs (auto) 3.80 Nucleated RBC % 0.1 Specimen Type Sample Site pH Bicarbonate Actual POC Total CO2 Base Excess O2 Saturation O2 % ABG pCO2 ABG pO2 Leland Test Respiration Rate O2 Delivery Device Minute Volume Vent Mode Tidal Volume POC PEEP POC Pressure Suppt Blood Gas Notified Whom Blood Gas Notified Time Sodium Potassium Chloride Carbon Dioxide Anion Gap BUN Creatinine Estim Creat Clear Calc Est GFR (MDRD) Af Amer Est GFR (MDRD) Non-Af BUN/Creatinine Ratio Glucose Calcium Phosphorus Magnesium POC Glucose 168 H 161 H 06/16/19 06/16/19 06/17/19 05:15 06:01 00:21 WBC RBC Hgb Hct MCV MCH MCHC RDW Std Deviation RDW Coeff of Re Plt Count MPV Immature Gran % (Auto) Neut % (Auto) Lymph % (Auto) Creek % (Auto) Eos % (Auto) Baso % (Auto) Absolute Neuts (auto) Absolute Lymphs (auto) Nucleated RBC % Specimen Type ART Sample Site L Radial pH 7.43 Bicarbonate Actual 27.9 H POC Total CO2 29 Base Excess 4 H O2 Saturation 95 O2 % 40 ABG pCO2 42.1 ABG pO2 74 L Leland Test POS Respiration Rate O2 Delivery Device Vent Minute Volume Vent Mode CPAP PS Tidal Volume POC PEEP 8 POC Pressure Suppt 5 Blood Gas Notified Whom ICU MD Blood Gas Notified Time 555 Sodium 142 Potassium 4.4 Chloride 110 H Carbon Dioxide 29.0 Anion Gap 3 L BUN 38 H Creatinine 0.86 Estim Creat Clear Calc 87.40 Est GFR (MDRD) Af Amer 120 Est GFR (MDRD) Non-Af 99 BUN/Creatinine Ratio 44.2 H Glucose 155 H Calcium 8.0 L Phosphorus Magnesium POC Glucose 194 H 06/17/19 06/17/19 06:00 06:00 WBC 21.0 H RBC 4.75 Hgb 14.7 Hct 46.4 MCV 97.7 H MCH 30.9 MCHC 31.7 L RDW Std Deviation 44.7 H RDW Coeff of Re 12.4 Plt Count 317 MPV 9.5 Immature Gran % (Auto) 0.700 Neut % (Auto) 74.8 H Lymph % (Auto) 19.7 Creek % (Auto) 4.7 Eos % (Auto) 0.0 Baso % (Auto) 0.1 Absolute Neuts (auto) 15.7 H Absolute Lymphs (auto) 4.13 Nucleated RBC % 0 Specimen Type Sample Site pH Bicarbonate Actual POC Total CO2 Base Excess O2 Saturation O2 % ABG pCO2 ABG pO2 Leland Test Respiration Rate O2 Delivery Device Minute Volume Vent Mode Tidal Volume POC PEEP POC Pressure Suppt Blood Gas Notified Whom Blood Gas Notified Time Sodium 143 Potassium 3.5 Chloride 105 Carbon Dioxide 33.0 H Anion Gap 5 BUN 34 H Creatinine 0.96 Estim Creat Clear Calc 78.30 Est GFR (MDRD) Af Amer 106 Est GFR (MDRD) Non-Af 87 BUN/Creatinine Ratio 35.3 H Glucose 145 H Calcium 8.5 Phosphorus 3.2 Magnesium 2.4 POC Glucose Microbiology 06/13/19 02:46 Blood Culture (Wb) - Right Forearm Blood Culture - Preliminary No growth in 48 hours. 06/13/19 02:15 Blood Culture (Wb) - No Site/Description Given Blood Culture - Preliminary No growth in 48 hours. Medical Necessity - Tobacco Use Smoking Status: Former smoker Tobacco Use: Cigarettes Assessment/Plan All Active Problems (Last Reviewed 02/22/19 @ 02:51 by Renato Hutson MD) Cholangitis (Acute) Acute ST elevation myocardial infarction (STEMI) of inferior wall (Acute) Severe sepsis (Acute) Sinus tachycardia by electrocardiogram (Acute) Respiratory infection (Acute) Encounter for observation for suspected nervous system disorder (Acute) Takotsubo cardiomyopathy (Acute) Respiratory failure (Acute) Sepsis (Acute) Leukocytosis (Acute) Intractable abdominal pain (Acute) Cocaine abuse (Resolved) Reaction, drug, adverse (Resolved) RECOMMENDATIONS: 1. Complete 5 days of antibiotics. Discontinue after today. 2. Okay to reinitiate baseline medications from my perspective 3. Continue beta-consuelo per cardiology 4. Wean Airvo as tolerated to nasal cannula 5. Increase activity as tolerated 6. Supplement potassium and continue diuresis as ordered 7. Okay to leave the intensive care unit from my perspective IMPRESSIONS: 1. Acute hypoxic respiratory failure Appears to be secondary to flash pulmonary edema secondary to cardiac manifestations. Patient's heart catheterization showed no endovascular issues, but EF was reduced to 25% from 75% previously. Patient's fever curve appears to be improving on antibiotics. Echocardiogram was not suggestive of endocarditis. Patient able to be successfully liberated from the ventilator this morning. We will continue with diuresis. Okay to transition to p.o. medications. 2. Takotsubo cardiomyopathy/acute systolic congestive heart failure Cardiology is following. Patient did have a heart catheterization suggestive of clean coronary arteries. Patient's heart rate has returned to normal levels after discontinuation of Precedex therapy. Continue to monitor blood pressures and heart rate. Okay to increase Coreg from my perspective, but will defer to cardiology. 3. History of non-Hodgkin's lymphoma/leukocytosis Patient with significant leukocytosis on presentation. This does appear to be improving with current therapy. Unclear if this is secondary to a stress response, acute infection or possible recurrence of Hodgkin's lymphoma. Patient will need to be watched carefully for thrombotic complications. 4. Possible sepsis Patient does have significant leukocytosis and fever. Patient's blood pressure has been okay. Tachycardia may be secondary to primary cardiac condition, but patient also is at risk for infection. All cultures have been negative. Patient continues to improve. Likely discontinue antibiotics tomorrow after completing a full 5 days of therapy and monitor clinically. Code Visit Inpatient E&M: 07113 Subs Hosp L3
--- NOTE | 2019-06-17 10:17 | PN_ITS ---
Patient Problems: Active and Suspected Problems (Last Reviewed 02/22/19 @ 02:51 by Renato Hutson MD) Acute ST elevation myocardial infarction (STEMI) of inferior wall (Acute) Severe sepsis (Acute) Sinus tachycardia by electrocardiogram (Acute) Respiratory infection (Acute) Encounter for observation for suspected nervous system disorder (Acute) Takotsubo cardiomyopathy (Acute) Respiratory failure (Acute) Subjective: Patient seen and examined. He had no active events overnight. He had no complaints at time of review this morning and was eating breakfast. He denies any fever or chills, any nausea vomiting, any shortness of breath, any abdominal pain or diarrhea. Review of symptoms otherwise negative. He has some tachy cardia this morning with heart rate of 104 and respiratory it was 23. WBC is down to 21. Patient is concerned that he is not receiving his report often and will want it restarted. Vitals/I&O's: Vital Signs Temp Pulse Resp BP Pulse Ox 98.8 F 104 H 23 H 119/94 H 93 06/17/19 04:00 06/17/19 10:00 06/17/19 10:00 06/17/19 10:00 06/17/19 10:00 Oxygen Flow Rate (L/min) 6 Oxygen Delivery Method CPAP Weight: 166 lb 3.657 oz Body Mass Index (BMI) 27.3 Finger Stick Blood Glucose 82 Intake and Output for Last 24 Hours 06/15/19 06/16/19 06/17/19 23:59 23:59 23:59 Intake Total 3247.39 / 3394.52 1874.51 / 1874.51 340 / 340 Output Total 2600 / 2600 3950 / 3950 250 / 250 Balance 647.39 / 794.52 -2075.49 / -2075.49 90 / 90 General: Alert, Oriented x3, Cooperative, No apparent distress HEENT: Atraumatic, PERRLA, EOMI, Normocephalic Oral: Moist Mucosa Neck: Supple, No JVD, Negative Carotid Bruits Lungs: Tachypneic, - - few fine crackles bibasally, on AIrvo Cardiovascular: Regular rate, Regular Rhythm, Normal S1, Normal S2, No murmurs Abdomen: Bowel Sounds Present, Soft, Non Tender, Non-Distended, No Hepato- splenomegaly Extremities: No clubbing, No cyanosis, No edema, Capillary Refill Less than 3 Seconds Skin: No rashes, No breakdown Musculoskeletal: No Tenderness to Palpation of Joints or Extremities Lymphatic: No Cervical, Supraclavicular, or Inguinal Adenopathy Neurological: Cranial nerves II-XII grossly intact, Neuro grossly intact, Motor Exam 5/5 strength throughout Psych/Mental Status: Normal Affect, Appropriate, Alert and oriented to time, pl [place], person, mood and affect Microbiology Past 72 Hours 06/13/19 02:46 Blood Culture (Wb) - Right Forearm Blood Culture - Preliminary No growth in 48 hours. 06/13/19 02:15 Blood Culture (Wb) - No Site/Description Given Blood Culture - Preliminary No growth in 48 hours. Laboratory Results 06/17/19 00:21: POC Glucose 194 H 06/17/19 06:00: WBC 21.0 H, RBC 4.75, Hgb 14.7, Hct 46.4, MCV 97.7 H, MCH 30.9, MCHC 31.7 L, RDW Std Deviation 44.7 H, RDW Coeff of Re 12.4, Plt Count 317, MPV 9.5, Immature Gran % (Auto) 0.700, Neut % (Auto) 74.8 H, Lymph % (Auto) 19.7, [place] % (Auto) 4.7, Eos % (Auto) 0.0, Baso % (Auto) 0.1, Absolute Neuts (auto) 15.7 H, Absolute Lymphs (auto) 4.13, Nucleated RBC % 0 06/17/19 06:00: Sodium 143, Potassium 3.5, Chloride 105, Carbon Dioxide 33.0 H, Anion Gap 5, BUN 34 H, Creatinine 0.96, Estim Creat Clear Calc 78.30, Est GFR (MDRD) Af Amer 106, Est GFR (MDRD) Non-Af 87, BUN/Creatinine Ratio 35.3 H, Glucose 145 H, Calcium 8.5, Phosphorus 3.2, Magnesium 2.4 Diagnostic Data Chest X-Ray 06/13/19 05:48 IMPRESSION: Stable support lines and tubes. Probable left lung base atelectasis. Electronically Signed: Odell Vasquez, at 6:19 EST Tel , Service support , Abdomen/Pelvis CT 06/13/19 09:34 IMPRESSION: Biliary stent is seen within the common bile duct. Pneumobilia of the biliary tree. Focal atelectasis and/or infiltrate at the left lung base. Electronically Signed: Davis Honeycutt, at 13:29 EST , Service support , Current Medications Acetaminophen (Tylenol) 650 mg PO Q4H PRN PRN PRN Reason: Pain or Fever Albuterol Sulfate (Ventolin Aerosols) 2.5 mg INHALATION Q2H PRN PRN PRN Reason: SOB/Wheezing Last Admin: 06/16/19 20:05 Dose: 2.5 mg Documented by: Calamine/Phenol (Calmoseptine Ointment) [address] [facility]; Protocol Carvedilol (Coreg) 6.[address] [facility] Chlorhexidine Gluconate () [address] [facility] Last Admin: 06/17/19 02:18 Dose: 1 each Documented by: Furosemide (Lasix) 80 mg IV BID@1000,1800 [facility] Last Admin: 06/16/19 17:58 Dose: 80 mg Documented by: Glucagon () 1 mg IM .X1 PRN PRN Reason: Hypoglycemia Heparin Sodium (Porcine) (Heparin Na) 5,[address] [facility] Last Admin: 06/17/19 05:00 Dose: 5,000 unit Documented by: Dextrose (Dextrose 10%-Water) 250 mls @ 999 mls/hr IV X1 PRN; Protocol PRN Reason: HYPOGLYCEMIA Sodium Chloride () 250 mls @ 15 mls/hr IV .[id number] PRN PRN Reason: Saline Flush Sodium Chloride () 250 mls @ 15 mls/hr IV .[id number] PRN PRN Reason: Additional IVPB Infusion Ceftriaxone Sodium (Rocephin) 1 gm in 50 mls @ 100 mls/hr IV Q24 [facility] Stop: 06/17/19 10:29 Last Infusion: 06/16/19 11:47 Dose: Infused Documented by: Metronidazole (Flagyl) 500 mg in 100 mls @ 100 mls/hr IV Q8 [facility] Stop: 06/17/19 23:59 Last Infusion: 06/17/19 06:09 Dose: Infused Documented by: Lisinopril (Zestril) 2.[address] [facility] Last Admin: 06/16/19 10:06 Dose: 2.5 mg Documented by: Nicotine (Nicoderm Cq (Pbkc)) [address] [facility] Last Admin: 06/16/19 10:59 Dose: 21 mg Documented by: Pantoprazole Sodium (Protonix) [address] [facility] Potassium Chloride (K-Dur) [address] [facility] Stop: 06/17/19 17:01 Prednisone () 40 mg PO DAILY@0800 [facility] Sodium Chloride () 10 - 40 ml IV UD PRN PRN Reason: SALINE FLUSH Last Admin: 06/16/19 10:02 Dose: 20 ml Documented by: STROKE Vital Signs/Narrative: Vital Signs Pulse Resp BP Pulse Ox 06/17/19 10:00 104 H 23 H 119/94 H 93 06/17/19 09:00 102 H 39 H 109/86 H 94 06/17/19 08:55 94 06/17/19 08:00 99 42 H 117/82 H 95 06/17/19 07:00 97 37 H 122/84 H 95 Medical Necessity - Tobacco Use Smoking Status: Former smoker Tobacco Use: Cigarettes Assessment/Plan All Active Problems (Last Reviewed 02/22/19 @ 02:51 by Renato Hutson MD) Cholangitis (Acute) Acute ST elevation myocardial infarction (STEMI) of inferior wall (Acute) Severe sepsis (Acute) Sinus tachycardia by electrocardiogram (Acute) Respiratory infection (Acute) Encounter for observation for suspected nervous system disorder (Acute) Takotsubo cardiomyopathy (Acute) Respiratory failure (Acute) Sepsis (Acute) Leukocytosis (Acute) Intractable abdominal pain (Acute) Cocaine abuse (Resolved) Reaction, drug, adverse (Resolved) 1. Acute hypoxic respiratory failure * went into flash pulmonary edema yesterday after extubation. received IV lasix and this has now resolved * on IV solumedrol and breathing treatments * on IV lasix 80mg bid * in positive balance by 1.88L since admission. * 2D echo: EF of 30 to 35% with stage I diastolic dysfunction and regional wall motion abnormalities. All the valves look normal with no evidence of endocarditis. Stage I diastolic dysfunction and RVSP was not assessed due to insufficient regurgitant tricuspid inflow. * * 2. Sepsis * source of sepsis is unclear * SIRS criteria now 1/4 - leucocytosis of 23,6; does appear to have chronic leucocytosis o/a of sepsis * blood cultures show no growth after 48 hours * CT abdomen and pelvis showed no infectious pathology and showed biliary stent in the common bile duct with pneumobilia of the biliary tree as well as focal atelectasis and or infiltrate of the left lung base. * currently on IV metronidazole; ceftriaxone dc'd * 3. Takotsubo cardiomyopathy * cardiac cath showed clean coronaries. EF is ~ 25%. * Cardiology on board. * On lisinopril * 4. History of IV drug abuse * 2D echo as under 2; was negative for any evidence of infective endocarditis. Blood cultures negative. * was on IV ceftriaxone and metronidazole; now on only metronidazole. * 5. Non-Hodgkin's lymphoma: * In remission. wbc is 21 today. Does have a history of chronically elevated WBCs likely due to non-Hodgkin's lymphoma. * Will monitor. * 6. Hypothyroidism: on synthroid 7. Chronic hepatitis C: Treatment na?ve. Will monitor. DVT prophylaxis: Heparin Code Visit Inpatient E&M: 21751 [facility] Hosp L3
[2019-06-17] MEDS: Menthol/Lanolin/Calamine/Znox 113 GM Tube 1 APPLIC TOPICAL ×2 (10:18→21:10)
[2019-06-17] MEDS: Carvedilol 6.25 MG Tablet PO ×2 (10:18→21:11)
[2019-06-17] MEDS: predniSONE 20 MG Tablet 40 MG PO (10:19)
[2019-06-17] MEDS: Pantoprazole Sodium 40 MG Tablet PO (10:20)
[2019-06-17] MEDS: Lisinopril 2.5 MG Tablet PO (10:21)
[2019-06-17] MEDS: Furosemide 100 MG/10 ML Vial 80 MG IV ×2 (10:22→16:51)
[2019-06-17] MEDS: Ceftriaxone 1 GM/50 ML BAG IV (10:43)
[2019-06-17] MEDS: Gabapentin 300 MG Capsule 900 MG PO (18:32)
--- NOTE | 2019-06-17 20:30 | CPS ---
changed water bag for humidity
[2019-06-17] MEDS: Acetaminophen 325 MG Tablet 650 MG PO (21:10)
[2019-06-17] MEDS: Montelukast 10 MG Tablet PO (21:12)
[2019-06-18] VITALS (28 sets, daily range): BP systolic 68–113; BP diastolic 44–83; PULSE 89–118; RESP 20–42; TEMP 35.9–36.8; O2SAT 87–100
--- NOTE | 2019-06-18 03:55 | CPS ---
placed pt on 2 lpm O2 via nasal cannula
[2019-06-18 05:41] LABS: Absolute Lymphocyte Count 5.92 X10^3/uL (0.83-4.51); Absolute Neutrophil Count 13.3 X10^3/uL (2.0-7.7); Basophil# 0.03 X10^3/uL; Basophil% 0.1 % (0-1); Eosinophil# 0.01 X10^3/uL; Hematocrit 50.6 % (40-54); Hemoglobin 16.2 g/dL (13.0-16.5); Lymphocyte # 5.92 X10^3/ul (4.0); Lymphocyte % 28.3 % (19-41); Mean Corpuscular Hgb 31.2 pg (27.0-32.0); Mean Corpuscular Volume 97.3 fL (80-94); Mean Platelet Vol. 9.6 fl (6.2-12.0); Monocyte% 6.7 % (0-10); NRBC Flagged by Analyzer 0 % (0-5); Neutrophil # 13.28 X10^3/uL (2.7-7.7); Neutrophil % 63.5 % (47-70); POSITIVE DIFFERENTIAL YES; Platelet Count 393 K/mm3 (150-450); RBC Distribution Width CV 12.3 % (11.6-14.6); RBC Distribution Width SD 44.4 fl (35.1-43.9); White Blood Count 20.9 K/mm3 (4.4-11.0)
[2019-06-18 05:43] LABS: Differential Indicated SCAN CRITERIA MET
[2019-06-18 05:51] LABS: Anion Gap 5 (5-15); BUN 37 mg/dL (7-18); BUN/Creat Ratio 34.3 RATIO (10-20); Calcium,Total 8.6 mg/dL (8.5-10.1); Chloride 101 mmol/L (98-107); Creatinine, Serum 1.08 mg/dL (0.70-1.30); EST Glomerular Filtration Rate 76 mL/min (>60); Est Glom Filt Rate - Afr Amer 92 mL/min (>60); Glucose 129 mg/dL (74-106); Potassium 3.4 mmol/L (3.5-5.1); Sodium Level 138 mmol/L (136-145)
[2019-06-18] MEDS: Levothyroxine 112 MCG Tablet PO (06:19)
[2019-06-18] MEDS: Heparin Injection (Vial) 5,000 UNIT/ML VIAL 5000 UNIT SC ×3 (06:21→22:03)
[2019-06-18 06:29] LABS: Differential Comment SCANNED; Reactive Lymphocyte 2+
[2019-06-18 06:30] LABS: Platelet Estimate SLT INC (ADEQ); Platelet Morphology CLUMPED
--- NOTE | 2019-06-18 06:45 | PN_ITS ---
Subjective: The patient was seen and examined at the bedside this morning. Events from the last 24 hours have been reviewed. The patient is currently afebrile, hemodynamically stable and maintaining appropriate oxygen saturations on 2 L/min via nasal cannula. Potassium is low this morning at 3.4. Objective: The patient's most recent lab work, culture data and imaging studies have all been personally reviewed. Surface echocardiogram from June 13 revealed normal LV size and thickness with an ejection fraction of 30 to 35% and stage I diastolic dysfunction. General: Alert, Cooperative, No apparent distress HEENT: Atraumatic, PERRLA, Normocephalic Oral: No Gingival or Mucosal Lesions/ Ulcerations Neck: Supple, No Nodes, Trachea Midline Lungs: No rhonchi, No wheeze, No rales, Diminished, Tachypneic Cardiovascular: Normal S1, Normal S2, No murmurs, Tachycardic Abdomen: Bowel Sounds Present, Soft, Non Tender Extremities: No clubbing, No cyanosis Skin: No breakdown Musculoskeletal: No Tenderness to Palpation of Joints or Extremities Lymphatic: No Cervical, Supraclavicular, or Inguinal Adenopathy Neurological: Cranial nerves II-XII grossly intact, Neuro grossly intact Psych/Mental Status: Normal Affect, Appropriate Vital Signs Temp Pulse Resp BP Pulse Ox 96.7 F L 97 42 H 110/83 H 94 06/18/19 00:00 06/18/19 06:00 06/18/19 06:00 06/18/19 06:00 06/18/19 06:00 Oxygen Flow Rate (L/min) 2 Oxygen Delivery Method Nasal Cannula Weight: 165 lb 5.547 oz Body Mass Index (BMI) 27.3 Finger Stick Blood Glucose 82 Intake and Output for Last 24 Hours 06/16/19 06/17/19 06/18/19 23:59 23:59 23:59 Intake Total 1874.51 / 1874.51 1090 / 1330 940 / 940 Output Total 3950 / 3950 2350 / 2850 650 / 650 Balance -2075.49 / -2075.49 -1260 / -1520 290 / 290 Labs (Last 48 Hours) 06/17/19 06/17/19 06/17/19 00:21 06:00 06:00 WBC 21.0 H RBC 4.75 Hgb 14.7 Hct 46.4 MCV 97.7 H MCH 30.9 MCHC 31.7 L RDW Std Deviation 44.7 H RDW Coeff of Re 12.4 Plt Count 317 MPV 9.5 Immature Gran % (Auto) 0.700 Neut % (Auto) 74.8 H Lymph % (Auto) 19.7 [place] % (Auto) 4.7 Eos % (Auto) 0.0 Baso % (Auto) 0.1 Absolute Neuts (auto) 15.7 H Absolute Lymphs (auto) 4.13 Nucleated RBC % 0 Differential Comment Reactive Lymphocytes Platelet Estimate Plt Morphology Comment Sodium 143 Potassium 3.5 Chloride 105 Carbon Dioxide 33.0 H Anion Gap 5 BUN 34 H Creatinine 0.96 Estim Creat Clear Calc 78.30 Est GFR (MDRD) Af Amer 106 Est GFR (MDRD) Non-Af 87 BUN/Creatinine Ratio 35.3 H Glucose 145 H Calcium 8.5 Phosphorus 3.2 Magnesium 2.4 POC Glucose 194 H 06/18/19 06/18/19 05:15 05:15 WBC 20.9 H RBC 5.20 Hgb 16.2 Hct 50.6 MCV 97.3 H MCH 31.2 MCHC 32.0 RDW Std Deviation 44.4 H RDW Coeff of Re 12.3 Plt Count 393 MPV 9.6 Immature Gran % (Auto) 1.400 H Neut % (Auto) 63.5 Lymph % (Auto) 28.3 [place] % (Auto) 6.7 Eos % (Auto) 0.0 Baso % (Auto) 0.1 Absolute Neuts (auto) 13.3 H Absolute Lymphs (auto) 5.92 H Nucleated RBC % 0 Differential Comment SCANNED Reactive Lymphocytes 2+ Platelet Estimate T INC Plt Morphology Comment CLUMPED Sodium 138 Potassium 3.4 L Chloride 101 Carbon Dioxide 32.0 Anion Gap 5 BUN 37 H Creatinine 1.08 Estim Creat Clear Calc 69.60 Est GFR (MDRD) Af Amer 92 Est GFR (MDRD) Non-Af 76 BUN/Creatinine Ratio 34.3 H Glucose 129 H Calcium 8.6 Phosphorus Magnesium POC Glucose Clinical Impression(s) from Imaging Studies Chest X-Ray 06/12/19 21:25 IMPRESSION: No acute thoracic pathology. Line and tube placement as above. Electronically Signed: Kvng Sarmiento, at 21:42 EST Tel , Service support , Chest X-Ray 06/13/19 05:48 IMPRESSION: Stable support lines and tubes. Probable left lung base atelectasis. Electronically Signed: Odell Vasquez, at 6:19 EST Tel , Service support , Abdomen/Pelvis CT 06/13/19 09:34 IMPRESSION: Biliary stent is seen within the common bile duct. Pneumobilia of the biliary tree. Focal atelectasis and/or infiltrate at the left lung base. Electronically Signed: Davis Tangela, at 13:29 EST , Service support , Medical Necessity - Tobacco Use Smoking Status: Former smoker Tobacco Use: Cigarettes Assessment/Plan All Active Problems (Last Reviewed 02/22/19 @ 02:51 by Renato Hutson MD) Cholangitis (Acute) Acute ST elevation myocardial infarction (STEMI) of inferior wall (Acute) Severe sepsis (Acute) Sinus tachycardia by electrocardiogram (Acute) Respiratory infection (Acute) Encounter for observation for suspected nervous system disorder (Acute) Takotsubo cardiomyopathy (Acute) Respiratory failure (Acute) Sepsis (Acute) Leukocytosis (Acute) Intractable abdominal pain (Acute) Cocaine abuse (Resolved) Reaction, drug, adverse (Resolved) RECOMMENDATIONS: 1. Continue beta-consuelo, MARITZA inhibitor and diuretic therapy per cardiology recommendations. 2. Wean supplemental oxygen to maintain saturations at or above 90%. 3. Encourage incentive spirometer use and mobilize patient as tolerated. 4. The patient is medically stable for transfer out of the intensive care unit. IMPRESSIONS: 1. Acute hypoxic respiratory failure Appears to be secondary to flash pulmonary edema secondary to cardiac manifestations. Patient's heart catheterization showed no endovascular issues, but EF was reduced to 25% from 75% previously. Echocardiogram was not suggestive of endocarditis. Continue diuretic therapy as ordered. Continue to wean supplemental oxygen to maintain saturations at or above 90%. Encourage incentive spirometer use and mobilize patient as tolerated. 2. Takotsubo cardiomyopathy/acute systolic congestive heart failure Cardiology is following. Patient did have a heart catheterization suggestive of clean coronary arteries. Continue medical management per cardiology recommendations. 3. History of non-Hodgkin's lymphoma/leukocytosis Patient with significant leukocytosis on presentation. This does appear to be improving with current therapy. Unclear if this is secondary to a stress response, acute infection or possible recurrence of Hodgkin's lymphoma. 4. Possible sepsis Patient did have significant leukocytosis and fever. All cultures have been negative. The patient has improved clinically following a 5-day treatment course of antibiotics. This note was generated with [employer] dictation software. It may contain incorrect words, spelling, and punctuation that were not noted in checking the note before signing. Code Visit Inpatient E&M: 37265 Subs Hosp L3
--- NOTE | 2019-06-18 07:49 | PN_ITS ---
Patient Problems: Active and Suspected Problems (Last Reviewed 02/22/19 @ 02:51 by Renato Hutson MD) Acute ST elevation myocardial infarction (STEMI) of inferior wall (Acute) Severe sepsis (Acute) Sinus tachycardia by electrocardiogram (Acute) Respiratory infection (Acute) Encounter for observation for suspected nervous system disorder (Acute) Takotsubo cardiomyopathy (Acute) Respiratory failure (Acute) Reason for Visit: Follow-up congestive heart failure Subjective: Patient is a 55-year-old gentleman admitted with shortness of breath and assessment of acute respiratory failure made. Patient was on the vent weaned off on 06/16/2019. Objective: GENERAL: cooperative neck at rest HEENT: Atraumatic; EYES; Anicteric, Normal Conjunctiva NECK; supple, normal thyroid, RESPIRATORY: Diminished to auscultation CARDIOVASCULAR: Regular S1 S2, GI: soft, normoactive bowel sounds, : No Renal angle tenderness; EXTREMITIES: No edema, no clubbing, MUSCULOSKELETAL: no muscle waisting NEURO: Awake; no lateralizing signs. SKIN: No Rash, Multiple tattoos PSYCH; Flat affect Vitals/I&O's: Vital Signs Temp Pulse Resp BP Pulse Ox 96.7 F L 106 H 39 H 113/82 H 94 06/18/19 00:00 06/18/19 07:00 06/18/19 07:00 06/18/19 07:00 06/18/19 07:00 Oxygen Flow Rate (L/min) 2 Oxygen Delivery Method Nasal Cannula Weight: 75 kg Body Mass Index (BMI) 27.3 Finger Stick Blood Glucose 82 Intake and Output for Last 24 Hours 06/16/19 06/17/19 06/18/19 23:59 23:59 23:59 Intake Total 1874.51 / 1874.51 1090 / 1330 940 / 940 Output Total 3950 / 3950 2350 / 2850 650 / 650 Balance -2075.49 / -2075.49 -1260 / -1520 290 / 290 Microbiology Past 72 Hours 06/13/19 02:46 Blood Culture (Wb) - Right Forearm Blood Culture - Final No growth in 5 days. 06/13/19 02:15 Blood Culture (Wb) - No Site/Description Given Blood Culture - Final No growth in 5 days. Laboratory Results 06/18/19 05:15: WBC 20.9 H, RBC 5.20, Hgb 16.2, Hct 50.6, MCV 97.3 H, MCH 31.2, MCHC 32.0, RDW Std Deviation 44.4 H, RDW Coeff of Re 12.3, Plt Count 393, MPV 9.6, Immature Gran % (Auto) 1.400 H, Neut % (Auto) 63.5, Lymph % (Auto) 28.3, [place] % (Auto) 6.7, Eos % (Auto) 0.0, Baso % (Auto) 0.1, Absolute Neuts (auto) 13.3 H, Absolute Lymphs (auto) 5.92 H, Nucleated RBC % 0, Differential Comment SCANNED, Reactive Lymphocytes 2+, Platelet Estimate SLT INC, Plt Morphology Comment CLUMPED 06/18/19 05:15: Sodium 138, Potassium 3.4 L, Chloride 101, Carbon Dioxide 32.0, Anion Gap 5, BUN 37 H, Creatinine 1.08, Estim Creat Clear Calc 69.60, Est GFR (MDRD) Af Amer 92, Est GFR (MDRD) Non-Af 76, BUN/Creatinine Ratio 34.3 H, Glucose 129 H, Calcium 8.6 Current Medications Acetaminophen (Tylenol) 650 mg PO Q4H PRN PRN PRN Reason: Pain or Fever Last Admin: 06/17/19 21:10 Dose: 650 mg Documented by: Albuterol Sulfate (Ventolin Aerosols) 2.5 mg INHALATION Q2H PRN PRN PRN Reason: SOB/Wheezing Last Admin: 06/16/19 20:05 Dose: 2.5 mg Documented by: Calamine/Phenol (Calmoseptine Ointment) 1 applic TOPICAL BID [facility]; Protocol Last Admin: 06/17/19 21:10 Dose: 1 applicatio Documented by: Carvedilol (Coreg) 6.25 mg PO BID [facility] Last Admin: 06/17/19 21:11 Dose: 6.25 mg Documented by: Chlorhexidine Gluconate () 1 each TOPICAL DAILY [facility] Last Admin: 06/17/19 02:18 Dose: 1 each Documented by: Furosemide (Lasix) 80 mg IV BID@1000,1800 [facility] Last Admin: 06/17/19 16:51 Dose: 80 mg Documented by: Gabapentin (Neurontin) 900 mg PO TIDCM [facility] Last Admin: 06/17/19 18:32 Dose: 900 mg Documented by: Glucagon () 1 mg IM .X1 PRN PRN Reason: Hypoglycemia Heparin Sodium (Porcine) (Heparin Na) 5,000 unit SC Q8 [facility] Last Admin: 06/18/19 06:21 Dose: 5,000 unit Documented by: Dextrose (Dextrose 10%-Water) 250 mls @ 999 mls/hr IV X1 PRN; Protocol PRN Reason: HYPOGLYCEMIA Sodium Chloride () 250 mls @ 15 mls/hr IV .[id number] PRN PRN Reason: Saline Flush Sodium Chloride () 250 mls @ 15 mls/hr IV .[id number] PRN PRN Reason: Additional IVPB Infusion Levothyroxine Sodium (Synthroid) 112 mcg PO DAILY@0600 [facility] Last Admin: 06/18/19 06:19 Dose: 112 mcg Documented by: Lisinopril (Zestril) 2.5 mg PO DAILY [facility] Last Admin: 06/17/19 10:21 Dose: 2.5 mg Documented by: Montelukast Sodium (Singulair) 10 mg PO QHS [facility] Last Admin: 06/17/19 21:12 Dose: 10 mg Documented by: Nicotine (Nicoderm Cq (Pbkc)) 21 mg TRANSDERM. DAILY [facility] Last Admin: 06/17/19 10:18 Dose: 21 mg Documented by: Nutritional Formula (Lactose Free) (Ensure Enlive) 120 ml PO 4X/DAY [facility] Pantoprazole Sodium (Protonix) 40 mg PO DAILY [facility] Last Admin: 06/17/19 10:20 Dose: 40 mg Documented by: Prednisone () 40 mg PO DAILY@0800 [facility] Last Admin: 06/17/19 10:19 Dose: 40 mg Documented by: Sodium Chloride () 10 - 40 ml IV UD PRN PRN Reason: SALINE FLUSH Last Admin: 06/16/19 10:02 Dose: 20 ml Documented by: STROKE Vital Signs/Narrative: Vital Signs Pulse Resp BP Pulse Ox 06/18/19 07:00 106 H 39 H 113/82 H 94 06/18/19 06:00 97 42 H 110/83 H 94 06/18/19 05:00 98 35 H 96/76 95 06/18/19 04:25 95 06/18/19 04:00 93 39 H 108/75 94 06/18/19 03:55 87 Medical Necessity - Tobacco Use Smoking Status: Former smoker Tobacco Use: Cigarettes Assessment/Plan All Active Problems (Last Reviewed 02/22/19 @ 02:51 by Renato Hutson MD) Cholangitis (Acute) Acute ST elevation myocardial infarction (STEMI) of inferior wall (Acute) Severe sepsis (Acute) Sinus tachycardia by electrocardiogram (Acute) Respiratory infection (Acute) Encounter for observation for suspected nervous system disorder (Acute) Takotsubo cardiomyopathy (Acute) Respiratory failure (Acute) Sepsis (Acute) Leukocytosis (Acute) Intractable abdominal pain (Acute) Cocaine abuse (Resolved) Reaction, drug, adverse (Resolved) Patient is a 55-year-old gentleman admitted with shortness of breath and assessment of acute respiratory failure made. Patient was on the vent weaned off on 06/16/2019. 1. Acute hypoxic respiratory failure ?Secondary to congestive heart failure with reduced ejection fraction. Patient was initially managed on the vent subsequently weaned off currently on Lasix 2. Acute congestive heart failure with decreased ejection fraction ?Patient ejection fraction is 25% has been managed with Lasix, low-sodium diet fluid restriction strict input and output 3. Takotsubo cardiomyopathy ?Patient underwent cardiac catheterization with clean coronaries. Currently on MARITZA inhibitors 4. Sepsis ?Of unclear etiology work-up is so far been negative except for CT of the abdomen and pelvis which demonstrated pneumobilia involving the biliary tract as well as left lung base atelectasis 5. History of IV drug abuse ?Patient states he has remained sober 6. Non-Hodgkin's lymphoma currently in remission 7. Chronic hep C ?Patient to follow-up with PCP for treatment 8. Hypothyroidism ?On levothyroxine did continue 9. DVT prophylaxis - Heparin Code Visit Inpatient E&M: 83676 [facility] H[facility] L3
[2019-06-18] MEDS: Menthol/Lanolin/Calamine/Znox 113 GM Tube 1 APPLIC TOPICAL (09:41)
[2019-06-18] MEDS: predniSONE 20 MG Tablet 40 MG PO (09:41)
[2019-06-18] MEDS: Furosemide 100 MG/10 ML Vial 80 MG IV ×2 (09:42→17:15)
[2019-06-18] MEDS: Carvedilol 6.25 MG Tablet PO (09:42)
[2019-06-18] MEDS: Pantoprazole Sodium 40 MG Tablet PO (09:42)
[2019-06-18] MEDS: Gabapentin 300 MG Capsule 900 MG PO ×2 (09:42→13:06)
--- NOTE | 2019-06-18 10:35 | CASEMGMT ---
Social Work Pt is only contact on demographic sheet. SW met with pt and informed of this. Pt agreeable to add son and HCPOA Neil to demographics and pt requesting both son and on contact list. Demographic info updated. TWYLA Vora
[2019-06-18] MEDS: Lisinopril 2.5 MG Tablet PO (11:14)
--- NOTE | 2019-06-18 14:18 | CASEMGMT ---
RN Note: Per notes, pt plans to return home with his son. Awaiting PT/OT notes for today. If recommended, can discuss Outpt or home health PT/OT on dc. Attempted to speak with pt, he is very sleepy, unable to participate in conversation @ this time. Will attempt again. Catherine FREDERICK RN ACM
[2019-06-18] MEDS: Mag Hydrox/Al Hydrox/Simeth 30 ML UDC PO (16:10)
--- NOTE | 2019-06-18 17:06 | NURSING ---
Attempted to call Neil (POA and son) about patient transfer to Progressive Care Unit Room 118, but phone was not answered and mailbox was full
[2019-06-18] MEDS: 0.9% Normal Saline 1,000 ML 250 ML IV ×2 (18:43→22:10)
[2019-06-18 19:11] LABS: Allen Test POS; Base Excess 6 mmol/L (-2 to +2); Bicarbonate 28.7 mmol/L (22-26); Blood Gas Specimen Type ART; O2 Delivery Device Nasal Can; PO2 68 mmHG (75-100); SITE L Radial; SO2 95 % (95-99); Time Given 1855; Total Carbon Dioxide 30 mmol/L; pCO2 36.8 mmHg (35-45)
[2019-06-18] MEDS: Montelukast 10 MG Tablet PO (22:03)
[2019-06-19] VITALS (18 sets, daily range): BP systolic 82–127; BP diastolic 52–85; PULSE 75–115; RESP 16–39; TEMP 36.2–37.1; O2SAT 91–97
[2019-06-19] MEDS: Acetaminophen 325 MG Tablet 650 MG PO (02:09)
[2019-06-19] MEDS: 0.9% Normal Saline 1,000 ML 250 ML IV (03:37)
[2019-06-19] MEDS: Levothyroxine 112 MCG Tablet PO (05:48)
[2019-06-19] MEDS: Heparin Injection (Vial) 5,000 UNIT/ML VIAL 5000 UNIT SC ×3 (05:48→21:56)
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
[2019-06-19 07:48] LABS: Absolute Lymphocyte Count 6.66 X10^3/uL (0.83-4.51); Absolute Neutrophil Count 14.1 X10^3/uL (2.0-7.7); Basophil# 0.03 X10^3/uL; Basophil% 0.1 % (0-1); Eosinophil# 0.08 X10^3/uL; Eosinophils% 0.4 % (0-5); Hematocrit 44.2 % (40-54); Hemoglobin 14.4 g/dL (13.0-16.5); Lymphocyte # 6.66 X10^3/ul (4.0); Lymphocyte % 29.6 % (19-41); Mean Corp Hgb Conc 32.6 g/dL (32-36); Mean Corpuscular Hgb 31.3 pg (27.0-32.0); Mean Corpuscular Volume 96.1 fL (80-94); Mean Platelet Vol. 9.6 fl (6.2-12.0); Monocyte# 1.12 X10^3/uL; NRBC Flagged by Analyzer 0 % (0-5); Neutrophil # 14.07 X10^3/uL (2.7-7.7); Neutrophil % 62.5 % (47-70); POSITIVE DIFFERENTIAL YES; POSITIVE MORPHOLOGY YES; Platelet Count 328 K/mm3 (150-450); RBC Distribution Width CV 12.4 % (11.6-14.6); RBC Distribution Width SD 43.6 fl (35.1-43.9); White Blood Count 22.5 K/mm3 (4.4-11.0)
[2019-06-19 07:52] LABS: Differential Indicated SCAN CRITERIA MET
[2019-06-19] MEDS: predniSONE 20 MG Tablet 40 MG PO (08:02)
[2019-06-19] MEDS: Gabapentin 300 MG Capsule 900 MG PO ×3 (08:02→16:56)
[2019-06-19] MEDS: Pantoprazole Sodium 40 MG Tablet PO (08:07)
[2019-06-19 08:14] LABS: Reactive Lymphocyte 1+
[2019-06-19 08:21] LABS: Anion Gap 4 (5-15); BUN 41 mg/dL (7-18); BUN/Creat Ratio 39.4 RATIO (10-20); Chloride 105 mmol/L (98-107); Creatinine, Serum 1.04 mg/dL (0.70-1.30); EST Glomerular Filtration Rate 80 mL/min (>60); Est Glom Filt Rate - Afr Amer 96 mL/min (>60); Estimated Creatinine Clearance 72.28 ml/min; Glucose 92 mg/dL (74-106); Potassium 3.6 mmol/L (3.5-5.1); Sodium Level 137 mmol/L (136-145)
--- NOTE | 2019-06-19 08:56 | PCM.PN.HOSP ---
Patient Problems: Active and Suspected Problems (Last Reviewed 02/22/19 @ 02:51 by Renato Hutson MD) Acute ST elevation myocardial infarction (STEMI) of inferior wall (Acute) Severe sepsis (Acute) Sinus tachycardia by electrocardiogram (Acute) Respiratory infection (Acute) Encounter for observation for suspected nervous system disorder (Acute) Takotsubo cardiomyopathy (Acute) Respiratory failure (Acute) Reason for Visit: Acute congestive heart failure Subjective: Patient was transferred from the intensive care unit to the progressive care unit he however became hypotensive with systolic blood pressure in the 70s. Patient was resuscitated with aggressive IV fluids. Blood pressure still remains low as of this morning. His lisinopril carvedilol as well as Lasix subsequently placed on hold Objective: GENERAL: cooperative HEENT: Atraumatic; EYES; Anicteric, Normal Conjunctiva NECK; supple, normal thyroid, RESPIRATORY: Diminished to auscultation CARDIOVASCULAR: Regular S1 S2, GI: soft, normoactive bowel sounds, : No Renal angle tenderness; EXTREMITIES: No edema, no clubbing, MUSCULOSKELETAL: no muscle waisting NEURO: Awake; no lateralizing signs. SKIN: No Rash, Multiple tattoos PSYCH; Flat affect Vitals/I&O's: Vital Signs Temp Pulse Resp BP Pulse Ox 97.4 F L 86 24 H 96/52 L 93 06/19/19 06:33 06/19/19 07:44 06/19/19 06:33 06/19/19 06:33 06/19/19 06:33 Oxygen Flow Rate (L/min) 2 Oxygen Delivery Method Room Air Weight: 76.8 kg Body Mass Index (BMI) 27.3 Finger Stick Blood Glucose 82 Intake and Output for Last 24 Hours 06/17/19 06/18/19 06/19/19 23:59 23:59 23:59 Intake Total 1090 / 1330 2462.5 / 2462.5 1960.00 / 1960.00 Output Total 2350 / 2850 1610 / 1610 225 / 225 Balance -1260 / -1520 852.5 / 852.5 1735.00 / 1735.00 Microbiology Past 72 Hours 06/13/19 02:46 Blood Culture (Wb) - Right Forearm Blood Culture - Final No growth in 5 days. 06/13/19 02:15 Blood Culture (Wb) - No Site/Description Given Blood Culture - Final No growth in 5 days. Laboratory Results 06/18/19 19:05: Specimen Type ART, Sample Site L Radial, pH 7.50 H, Bicarbonate Actual 28.7 H, POC Total CO2 30, Base Excess 6 H, O2 Saturation 95, ABG pCO2 36.8, ABG pO2 68 L, Leland Test POS, O2 Delivery Device Nasal Can, Liter Flow 2.0, Blood Gas Notified Whom [facility] , Blood Gas Notified Time 1855 06/19/19 07:25: WBC 22.5 H, RBC 4.60, Hgb 14.4, Hct 44.2, MCV 96.1 H, MCH 31.3, MCHC 32.6, RDW Std Deviation 43.6, RDW Coeff of Re 12.4, Plt Count 328, MPV 9.6, Immature Gran % (Auto) 2.400 H, Neut % (Auto) 62.5, Lymph % (Auto) 29.6, [place] % (Auto) 5.0, Eos % (Auto) 0.4, Baso % (Auto) 0.1, Absolute Neuts (auto) 14.1 H, Absolute Lymphs (auto) 6.66 H, Nucleated RBC % 0, Differential Comment COMMENT, Reactive Lymphocytes 1+ 06/19/19 07:25: Sodium 137, Potassium 3.6, Chloride 105, Carbon Dioxide 28.0, Anion Gap 4 L, BUN 41 H, Creatinine 1.04, Estim Creat Clear Calc 72.28, Est GFR (MDRD) Af Amer 96, Est GFR (MDRD) Non-Af 80, BUN/Creatinine Ratio 39.4 H, Glucose 92, Calcium 8.0 L, Magnesium 2.0 Current Medications Acetaminophen (Tylenol) 650 mg PO Q4H PRN PRN PRN Reason: Pain or Fever Last Admin: 06/19/19 02:09 Dose: 650 mg Documented by: Al Hydroxide/Mg Hydroxide (Mylanta Ii) 30 ml PO Q4H PRN PRN PRN Reason: DYSPEPSIA/INDIGESTION Last Admin: 06/18/19 16:10 Dose: 30 ml Documented by: Albuterol Sulfate (Ventolin Aerosols) 2.5 mg INHALATION Q2H PRN PRN PRN Reason: SOB/Wheezing Last Admin: 06/16/19 20:05 Dose: 2.5 mg Documented by: Calamine/Phenol (Calmoseptine Ointment) 1 applic TOPICAL BID [facility]; Protocol Last Admin: 06/18/19 22:09 Dose: Not Given Documented by: Carvedilol (Coreg) 6.25 mg PO BID [facility] Last Admin: 06/18/19 22:56 Dose: Not Given Documented by: Chlorhexidine Gluconate () 1 each TOPICAL DAILY [facility] Last Admin: 06/19/19 08:07 Dose: Not Given Documented by: Furosemide (Lasix) 80 mg IV BID@1000,1800 [facility] Last Admin: 06/18/19 17:15 Dose: 80 mg Documented by: Gabapentin (Neurontin) 900 mg PO TIDCM [facility] Last Admin: 06/19/19 08:02 Dose: 900 mg Documented by: Glucagon () 1 mg IM .X1 PRN PRN Reason: Hypoglycemia Heparin Sodium (Porcine) (Heparin Na) 5,000 unit SC Q8 [facility] Last Admin: 06/19/19 05:48 Dose: 5,000 unit Documented by: Dextrose (Dextrose 10%-Water) 250 mls @ 999 mls/hr IV X1 PRN; Protocol PRN Reason: HYPOGLYCEMIA Sodium Chloride () 250 mls @ 15 mls/hr IV .[id number] PRN PRN Reason: Saline Flush Sodium Chloride () 250 mls @ 15 mls/hr IV .[id number] PRN PRN Reason: Additional IVPB Infusion Levothyroxine Sodium (Synthroid) 112 mcg PO DAILY@0600 [facility] Last Admin: 06/19/19 05:48 Dose: 112 mcg Documented by: Lisinopril (Zestril) 2.5 mg PO DAILY [facility] Last Admin: 06/18/19 11:14 Dose: 2.5 mg Documented by: Montelukast Sodium (Singulair) 10 mg PO QHS [facility] Last Admin: 06/18/19 22:03 Dose: 10 mg Documented by: Nicotine (Nicoderm Cq (Pbkc)) 21 mg TRANSDERM. DAILY [facility] Last Admin: 06/19/19 08:05 Dose: 21 mg Documented by: Nutritional Formula (Lactose Free) (Ensure Enlive) 120 ml PO 4X/DAY [facility] Last Admin: 06/19/19 08:05 Dose: 120 ml Documented by: Pantoprazole Sodium (Protonix) 40 mg PO DAILY [facility] Last Admin: 06/19/19 08:07 Dose: 40 mg Documented by: Prednisone () 40 mg PO DAILY@0800 [facility] Last Admin: 06/19/19 08:02 Dose: 40 mg Documented by: Sodium Chloride () 10 - 40 ml IV UD PRN PRN Reason: SALINE FLUSH Last Admin: 06/16/19 10:02 Dose: 20 ml Documented by: STROKE Vital Signs/Narrative: Vital Signs Temp Pulse Resp BP Pulse Ox 06/19/19 07:44 86 06/19/19 06:33 97.4 F L 81 24 H 96/52 L 93 06/19/19 05:42 97.2 F L 84 21 H 83/65 L 93 Medical Necessity - Tobacco Use Smoking Status: Former smoker Tobacco Use: Cigarettes Assessment/Plan All Active Problems (Last Reviewed 02/22/19 @ 02:51 by Renato Hutson MD) Cholangitis (Acute) Acute ST elevation myocardial infarction (STEMI) of inferior wall (Acute) Severe sepsis (Acute) Sinus tachycardia by electrocardiogram (Acute) Respiratory infection (Acute) Encounter for observation for suspected nervous system disorder (Acute) Takotsubo cardiomyopathy (Acute) Respiratory failure (Acute) Sepsis (Acute) Leukocytosis (Acute) Intractable abdominal pain (Acute) Cocaine abuse (Resolved) Reaction, drug, adverse (Resolved) Patient is a 55-year-old gentleman admitted with shortness of breath and assessment of acute respiratory failure made. Patient was on the vent weaned off on 06/16/2019. 1. Acute hypoxic respiratory failure ?Secondary to congestive heart failure with reduced ejection fraction. Patient was initially managed on the vent subsequently weaned off currently on Lasix ?Patient remains on supplemental oxygen 2. Acute congestive heart failure with decreased ejection fraction ?Patient ejection fraction is 25% has been managed with Lasix, low-sodium diet fluid restriction strict input and output ?06/19/2019: Lasix placed on hold following episodes of hypotension. 3. Hypotension Attributed to patient being fluid depleted in addition to being on beta-conuselo, lisinopril and Lasix. The suspected offending medications held patient resuscitated with IV fluids. 3. Takotsubo cardiomyopathy ?Patient underwent cardiac catheterization with clean coronaries. Currently on MARITZA inhibitors ?06/19/2019: MARITZA inhibitor was placed on hold in view of patient being hypotensive 4. Sepsis ?Of unclear etiology work-up is so far been negative except for CT of the abdomen and pelvis which demonstrated pneumobilia involving the biliary tract as well as left lung base atelectasis 5. History of IV drug abuse ?Patient states he has remained sober 6. Non-Hodgkin's lymphoma currently in remission 7. Chronic hep C ?Patient to follow-up with PCP for treatment 8. Hypothyroidism ?On levothyroxine did continue 9. DVT prophylaxis - Heparin Code Visit Inpatient E&M: 32271 [facility] Hosp L3
--- NOTE | 2019-06-19 09:48 | PN_ITS ---
Patient Problems: Active and Suspected Problems (Last Reviewed 02/22/19 @ 02:51 by Renato Hutson MD) Acute ST elevation myocardial infarction (STEMI) of inferior wall (Acute) Severe sepsis (Acute) Sinus tachycardia by electrocardiogram (Acute) Respiratory infection (Acute) Encounter for observation for suspected nervous system disorder (Acute) Takotsubo cardiomyopathy (Acute) Respiratory failure (Acute) Subjective: The patient was seen and examined at the bedside this morning. Events from the last 24 hours have been reviewed. The patient is currently afebrile and maintaining appropriate oxygen saturations on room air. The patient is currently documented to be overall net +4 L for the hospital admission. The patient did become hypotensive yesterday requiring IV fluids. Objective: The patient's most recent lab work, culture data and imaging studies have all been personally reviewed. Surface echocardiogram from June 13 revealed normal LV size and thickness with an ejection fraction of 30 to 35% and stage I diastolic dysfunction. - Physical Exam Vitals/I&O's: Vital Signs Temp Pulse Resp BP Pulse Ox 97.4 F L 86 24 H 96/52 L 93 06/19/19 06:33 06/19/19 07:44 06/19/19 06:33 06/19/19 06:33 06/19/19 06:33 Oxygen Flow Rate (L/min) 2 Oxygen Delivery Method Room Air Weight: 169 lb 5.04 oz Body Mass Index (BMI) 27.3 Finger Stick Blood Glucose 82 Intake and Output for Last 24 Hours 06/17/19 06/18/19 06/19/19 23:59 23:59 23:59 Intake Total 1090 / 1330 2462.5 / 2462.5 1960.00 / 1960.00 Output Total 2350 / 2850 1610 / 1610 225 / 225 Balance -1260 / -1520 852.5 / 852.5 1735.00 / 1735.00 General: Alert, Cooperative, No apparent distress HEENT: Atraumatic, PERRLA, Normocephalic Oral: No Gingival or Mucosal Lesions/ Ulcerations Neck: Supple, No Nodes, Trachea Midline Lungs: Diminished Cardiovascular: Regular rate, Normal S1, Normal S2, No murmurs Abdomen: Bowel Sounds Present, Soft, Non Tender Extremities: No clubbing, No cyanosis Skin: No breakdown Musculoskeletal: No Tenderness to Palpation of Joints or Extremities Lymphatic: No Cervical, Supraclavicular, or Inguinal Adenopathy Neurological: Cranial nerves II-XII grossly intact, Neuro grossly intact Psych/Mental Status: Normal Affect, Appropriate Labs (Last 48 Hours) 06/18/19 06/18/19 06/18/19 05:15 05:15 19:05 WBC 20.9 H RBC 5.20 Hgb 16.2 Hct 50.6 MCV 97.3 H MCH 31.2 MCHC 32.0 RDW Std Deviation 44.4 H RDW Coeff of Re 12.3 Plt Count 393 MPV 9.6 Immature Gran % (Auto) 1.400 H Neut % (Auto) 63.5 Lymph % (Auto) 28.3 Mcintosh % (Auto) 6.7 Eos % (Auto) 0.0 Baso % (Auto) 0.1 Absolute Neuts (auto) 13.3 H Absolute Lymphs (auto) 5.92 H Nucleated RBC % 0 Differential Comment SCANNED Reactive Lymphocytes 2+ Platelet Estimate SLT INC Plt Morphology Comment CLUMPED Specimen Type ART Sample Site L Radial pH 7.50 H Bicarbonate Actual 28.7 H POC Total CO2 30 Base Excess 6 H O2 Saturation 95 ABG pCO2 36.8 ABG pO2 68 L Leland Test POS O2 Delivery Device Nasal Can Liter Flow 2.0 Blood Gas Notified Whom HOSP Blood Gas Notified Time 1855 Sodium 138 Potassium 3.4 L Chloride 101 Carbon Dioxide 32.0 Anion Gap 5 BUN 37 H Creatinine 1.08 Estim Creat Clear Calc 69.60 Est GFR (MDRD) Af Amer 92 Est GFR (MDRD) Non-Af 76 BUN/Creatinine Ratio 34.3 H Glucose 129 H Calcium 8.6 Magnesium 06/19/19 06/19/19 07:25 07:25 WBC 22.5 H RBC 4.60 Hgb 14.4 Hct 44.2 MCV 96.1 H MCH 31.3 MCHC 32.6 RDW Std Deviation 43.6 RDW Coeff of Re 12.4 Plt Count 328 MPV 9.6 Immature Gran % (Auto) 2.400 H Neut % (Auto) 62.5 Lymph % (Auto) 29.6 Mcintosh % (Auto) 5.0 Eos % (Auto) 0.4 Baso % (Auto) 0.1 Absolute Neuts (auto) 14.1 H Absolute Lymphs (auto) 6.66 H Nucleated RBC % 0 Differential Comment COMMENT Reactive Lymphocytes 1+ Platelet Estimate Plt Morphology Comment Specimen Type Sample Site pH Bicarbonate Actual POC Total CO2 Base Excess O2 Saturation ABG pCO2 ABG pO2 Leland Test O2 Delivery Device Liter Flow Blood Gas Notified Whom Blood Gas Notified Time Sodium 137 Potassium 3.6 Chloride 105 Carbon Dioxide 28.0 Anion Gap 4 L BUN 41 H Creatinine 1.04 Estim Creat Clear Calc 72.28 Est GFR (MDRD) Af Amer 96 Est GFR (MDRD) Non-Af 80 BUN/Creatinine Ratio 39.4 H Glucose 92 Calcium 8.0 L Magnesium 2.0 Microbiology 06/13/19 02:46 Blood Culture (Wb) - Right Forearm Blood Culture - Final No growth in 5 days. 06/13/19 02:15 Blood Culture (Wb) - No Site/Description Given Blood Culture - Final No growth in 5 days. Clinical Impression(s) from Imaging Studies Chest X-Ray 06/12/19 21:25 IMPRESSION: No acute thoracic pathology. Line and tube placement as above. Electronically Signed: Kvng Sarmiento, at 21:42 EST Tel , Service support , Chest X-Ray 06/13/19 05:48 IMPRESSION: Stable support lines and tubes. Probable left lung base atelectasis. Electronically Signed: Odell Vasquez, at 6:19 EST Tel , Service support , Abdomen/Pelvis CT 06/13/19 09:34 IMPRESSION: Biliary stent is seen within the common bile duct. Pneumobilia of the biliary tree. Focal atelectasis and/or infiltrate at the left lung base. Electronically Signed: Davis Honeycutt, at 13:29 EST , Service support , Current Medications Acetaminophen (Tylenol) 650 mg PO Q4H PRN PRN PRN Reason: Pain or Fever Last Admin: 06/19/19 02:09 Dose: 650 mg Documented by: Al Hydroxide/Mg Hydroxide (Mylanta Ii) 30 ml PO Q4H PRN PRN PRN Reason: DYSPEPSIA/INDIGESTION Last Admin: 06/18/19 16:10 Dose: 30 ml Documented by: Albuterol Sulfate (Ventolin Aerosols) 2.5 mg INHALATION Q2H PRN PRN PRN Reason: SOB/Wheezing Last Admin: 06/16/19 20:05 Dose: 2.5 mg Documented by: Calamine/Phenol (Calmoseptine Ointment) 1 applic TOPICAL BID [facility]; Protocol Last Admin: 06/18/19 22:09 Dose: Not Given Documented by: Carvedilol (Coreg) 6.25 mg PO BID [facility] Last Admin: 06/18/19 22:56 Dose: Not Given Documented by: Chlorhexidine Gluconate () 1 each TOPICAL DAILY [facility] Last Admin: 06/19/19 08:07 Dose: Not Given Documented by: Furosemide (Lasix) 80 mg IV BID@1000,1800 [facility] Last Admin: 06/18/19 17:15 Dose: 80 mg Documented by: Gabapentin (Neurontin) 900 mg PO TIDCM [facility] Last Admin: 06/19/19 08:02 Dose: 900 mg Documented by: Glucagon () 1 mg IM .X1 PRN PRN Reason: Hypoglycemia Heparin Sodium (Porcine) (Heparin Na) 5,000 unit SC Q8 [facility] Last Admin: 06/19/19 05:48 Dose: 5,000 unit Documented by: Dextrose (Dextrose 10%-Water) 250 mls @ 999 mls/hr IV X1 PRN; Protocol PRN Reason: HYPOGLYCEMIA Sodium Chloride () 250 mls @ 15 mls/hr IV .[id number] PRN PRN Reason: Saline Flush Sodium Chloride () 250 mls @ 15 mls/hr IV .[id number] PRN PRN Reason: Additional IVPB Infusion Levothyroxine Sodium (Synthroid) 112 mcg PO DAILY@0600 [facility] Last Admin: 06/19/19 05:48 Dose: 112 mcg Documented by: Lisinopril (Zestril) 2.5 mg PO DAILY [facility] Last Admin: 06/18/19 11:14 Dose: 2.5 mg Documented by: Montelukast Sodium (Singulair) 10 mg PO QHS [facility] Last Admin: 06/18/19 22:03 Dose: 10 mg Documented by: Nicotine (Nicoderm Cq (Pbkc)) 21 mg TRANSDERM. DAILY [facility] Last Admin: 06/19/19 08:05 Dose: 21 mg Documented by: Nutritional Formula (Lactose Free) (Ensure Enlive) 120 ml PO 4X/DAY [facility] Last Admin: 06/19/19 08:05 Dose: 120 ml Documented by: Pantoprazole Sodium (Protonix) 40 mg PO DAILY [facility] Last Admin: 06/19/19 08:07 Dose: 40 mg Documented by: Prednisone () 40 mg PO DAILY@0800 [facility] Last Admin: 06/19/19 08:02 Dose: 40 mg Documented by: Sodium Chloride () 10 - 40 ml IV UD PRN PRN Reason: SALINE FLUSH Last Admin: 06/16/19 10:02 Dose: 20 ml Documented by: Medical Necessity - Tobacco Use Smoking Status: Former smoker Tobacco Use: Cigarettes Assessment/Plan All Active Problems (Last Reviewed 02/22/19 @ 02:51 by Renato Hutson MD) Cholangitis (Acute) Acute ST elevation myocardial infarction (STEMI) of inferior wall (Acute) Severe sepsis (Acute) Sinus tachycardia by electrocardiogram (Acute) Respiratory infection (Acute) Encounter for observation for suspected nervous system disorder (Acute) Takotsubo cardiomyopathy (Acute) Respiratory failure (Acute) Sepsis (Acute) Leukocytosis (Acute) Intractable abdominal pain (Acute) Cocaine abuse (Resolved) Reaction, drug, adverse (Resolved) RECOMMENDATIONS: 1. Hold diuretics for now. 2. Encourage incentive spirometer use and mobilize patient as tolerated. 3. Continue baseline cardiac medications. IMPRESSIONS: 1. Acute hypoxic respiratory failure Resolved. Appears to be secondary to flash pulmonary edema secondary to cardiac manifestations. Patient's heart catheterization showed no endovascular issues, but EF was reduced to 25% from 75% previously. Echocardiogram was not suggestive of endocarditis. Diuretics are on hold due to tenuous hemodynamics. The patient has been weaned from supplemental oxygen to room air and is doing well. Encourage incentive spirometer use and mobilize patient as tolerated. 2. Takotsubo cardiomyopathy/acute systolic congestive heart failure Cardiology is following. Patient did have a heart catheterization suggestive of clean coronary arteries. Continue medical management per cardiology recommendations. 3. History of non-Hodgkin's lymphoma/leukocytosis Patient with significant leukocytosis on presentation. This does appear to be improving with current therapy. Unclear if this is secondary to a stress response, acute infection or possible recurrence of Hodgkin's lymphoma. 4. Possible sepsis The patient did have significant leukocytosis and fever. All cultures have been negative. The patient has improved clinically following a 5-day treatment course of antibiotics. This note was generated with [employer] software. It may contain incorrect words, spelling, and punctuation that were not noted in checking the note before signing. Code Visit Inpatient E&M: 43877 Subs Hosp L2
--- NOTE | 2019-06-19 14:59 | CASEMGMT ---
Social Work SW met with pt. Pt awake and willing to talk with SW. SW reviewed with pt events since admission including family issues. Pt readily acknowledging that he has now made his son Neil GRIDER and he has made decision that upon discharge pt will not return to his home with his but will go home with Neil and he states Neil is aware and agreeable. Pt openly sharing that he does not feel safe in home with and will not return there but definitely feels safe with his son. SW review with pt the necessity to use police to protect himself from and not to take action themselves. Pt stating he is aware of that and has called police before in difficult situations. Pt stating he has not told about discharge plan and does not want staff to tell her. Pt plans to call son or daughter at time of discharge to transport him to son's home and then will let know. SW inquired if pt would like 's name removed from demographic sheet but pt declined stating leave her on there for now. Emotional support provided to pt. Nursing made aware. SW will remain available if further needs arise. Plan: Home with son at time of discharge, son or daughter to transport TWYLA Vora
--- NOTE | 2019-06-19 16:43 | CHAPLAIN ---
Type of Pastoral Visit ___ Initial Visit _x__ Follow-up Visit ___ On-call Visit ___ General Patient Visit ___ Spiritual Assessment ___ Family Conference ___ Bereavement ___ Rapid Response ___ Code Blue ___ Other (describe below) Pastoral Care Referral From _x__ Patient ___ Family ___ Nurse ___ Physician ___ Regional Business Manager ___ Junior Qa Analyst ___ Other (describe below) Sacrament/Intervention _x__ Active listening ___ Anointing ___ Lutheran ___ Bereavement ___ Communion _x__ Eulalia exploration ___ _x__ Life review _x__ Prayer ___ Reconciliation ___ Sacrament of Sick _x__ Supportive presence ___ Wedding ___ Other (describe below) Pastoral Comments patient was eager to talk and had a number of questions to discuss concerning personal life and his spiritual eulalia; pt would like to continue on a path that is eulalia filled, moral, and at peace with others; patient requested prayer support and future visits for spiritual care if available
[2019-06-19] MEDS: Montelukast 10 MG Tablet PO (21:56)
[2019-06-20] VITALS (8 sets, daily range): BP systolic 100–132; BP diastolic 60–79; PULSE 97–103; RESP 16–20; TEMP 36.5–36.8; O2SAT 90–95
[2019-06-20] MEDS: Levothyroxine 112 MCG Tablet PO (05:48)
[2019-06-20] MEDS: Heparin Injection (Vial) 5,000 UNIT/ML VIAL 5000 UNIT SC (05:48)
[2019-06-20] MEDS: Acetaminophen 325 MG Tablet 650 MG PO (05:50)
[2019-06-20 06:39] LABS: Absolute Lymphocyte Count 6.75 X10^3/uL (0.83-4.51); Basophil# 0.09 X10^3/uL; Basophil% 0.4 % (0-1); Eosinophil# 0.14 X10^3/uL; Eosinophils% 0.6 % (0-5); Hematocrit 46.7 % (40-54); Hemoglobin 15.3 g/dL (13.0-16.5); Lymphocyte # 6.75 X10^3/ul (4.0); Lymphocyte % 28.1 % (19-41); Mean Corp Hgb Conc 32.8 g/dL (32-36); Mean Corpuscular Hgb 31.2 pg (27.0-32.0); Mean Corpuscular Volume 95.3 fL (80-94); Mean Platelet Vol. 9.3 fl (6.2-12.0); Monocyte# 1.33 X10^3/uL; Monocyte% 5.5 % (0-10); NRBC Flagged by Analyzer 0 % (0-5); Neutrophil % 62.4 % (47-70); POSITIVE DIFFERENTIAL YES; POSITIVE MORPHOLOGY YES; Platelet Count 349 K/mm3 (150-450); RBC Distribution Width CV 11.7 % (11.6-14.6); RBC Distribution Width SD 40.5 fl (35.1-43.9)
[2019-06-20 06:51] LABS: Differential Indicated SCAN CRITERIA MET
[2019-06-20 07:02] LABS: Anion Gap 5 (5-15); BUN 25 mg/dL (7-18); BUN/Creat Ratio 31.4 RATIO (10-20); Calcium,Total 8.5 mg/dL (8.5-10.1); Chloride 106 mmol/L (98-107); EST Glomerular Filtration Rate 109 mL/min (>60); Est Glom Filt Rate - Afr Amer 131 mL/min (>60); Estimated Creatinine Clearance 93.96 ml/min; Glucose 99 mg/dL (74-106); Potassium 3.7 mmol/L (3.5-5.1); Sodium Level 135 mmol/L (136-145)
[2019-06-20 07:08] LABS: Reactive Lymphocyte 2+
[2019-06-20] MEDS: Gabapentin 300 MG Capsule 900 MG PO ×2 (08:11→12:40)
[2019-06-20] MEDS: predniSONE 20 MG Tablet 40 MG PO (08:11)
--- NOTE | 2019-06-20 10:32 | PN_ITS ---
Subjective: The patient was seen and examined at the bedside this morning. Events from the last 24 hours have been reviewed. The patient is currently afebrile, hemodynamically stable and maintaining appropriate oxygen saturations on 2 L/min via nasal cannula. The patient is quite stressed out this morning regarding certain family stressors. Objective: The patient's most recent lab work, culture data and imaging studies have all been personally reviewed. Surface echocardiogram from June 13 revealed normal LV size and thickness with an ejection fraction of 30 to 35% and stage I diastolic dysfunction. - Physical Exam Vitals/I&O's: Vital Signs Temp Pulse Resp BP Pulse Ox 97.7 F L 100 16 100/66 90 06/20/19 08:00 06/20/19 08:00 06/20/19 08:00 06/20/19 08:00 06/20/19 08:02 Oxygen Flow Rate (L/min) 2 Oxygen Delivery Method Room Air Weight: 168 lb 3.403 oz Body Mass Index (BMI) 27.3 Finger Stick Blood Glucose 82 Intake and Output for Last 24 Hours 06/18/19 06/19/19 06/20/19 23:59 23:59 23:59 Intake Total 2462.5 / 2462.5 3910.00 / 3910.00 400 / 400 Output Total 1610 / 1610 925 / 925 Balance 852.5 / 852.5 2985.00 / 2985.00 400 / 400 General: Alert, Cooperative HEENT: Atraumatic, PERRLA, Normocephalic Oral: No Gingival or Mucosal Lesions/ Ulcerations Neck: Supple, No Nodes, Trachea Midline Lungs: Diminished Cardiovascular: Regular rate, Regular Rhythm, Normal S1, Normal S2, No murmurs Abdomen: Bowel Sounds Present, Soft, Non Tender Extremities: No clubbing, No cyanosis Skin: No breakdown Musculoskeletal: No Tenderness to Palpation of Joints or Extremities, No Muscle Wasting Lymphatic: No Cervical, Supraclavicular, or Inguinal Adenopathy Neurological: Neuro grossly intact Psych/Mental Status: Agitated Labs (Last 48 Hours) 06/18/19 06/19/19 06/19/19 19:05 07:25 07:25 WBC 22.5 H RBC 4.60 Hgb 14.4 Hct 44.2 MCV 96.1 H MCH 31.3 MCHC 32.6 RDW Std Deviation 43.6 RDW Coeff of Re 12.4 Plt Count 328 MPV 9.6 Immature Gran % (Auto) 2.400 H Neut % (Auto) 62.5 Lymph % (Auto) 29.6 Pitt % (Auto) 5.0 Eos % (Auto) 0.4 Baso % (Auto) 0.1 Absolute Neuts (auto) 14.1 H Absolute Lymphs (auto) 6.66 H Nucleated RBC % 0 Differential Comment COMMENT Reactive Lymphocytes 1+ Specimen Type ART Sample Site L Radial pH 7.50 H Bicarbonate Actual 28.7 H POC Total CO2 30 Base Excess 6 H O2 Saturation 95 ABG pCO2 36.8 ABG pO2 68 L Leland Test POS O2 Delivery Device Nasal Can Liter Flow 2.0 Blood Gas Notified Whom HOSP MD Blood Gas Notified Time 1855 Sodium 137 Potassium 3.6 Chloride 105 Carbon Dioxide 28.0 Anion Gap 4 L BUN 41 H Creatinine 1.04 Estim Creat Clear Calc 72.28 Est GFR (MDRD) Af Amer 96 Est GFR (MDRD) Non-Af 80 BUN/Creatinine Ratio 39.4 H Glucose 92 Calcium 8.0 L Magnesium 2.0 06/20/19 06/20/19 06:15 06:15 WBC 24.0 H RBC 4.90 Hgb 15.3 Hct 46.7 MCV 95.3 H MCH 31.2 MCHC 32.8 RDW Std Deviation 40.5 RDW Coeff of Re 11.7 Plt Count 349 MPV 9.3 Immature Gran % (Auto) 3.000 H Neut % (Auto) 62.4 Lymph % (Auto) 28.1 Pitt % (Auto) 5.5 Eos % (Auto) 0.6 Baso % (Auto) 0.4 Absolute Neuts (auto) 15.0 H Absolute Lymphs (auto) 6.75 H Nucleated RBC % 0 Differential Comment Reactive Lymphocytes 2+ Specimen Type Sample Site pH Bicarbonate Actual POC Total CO2 Base Excess O2 Saturation ABG pCO2 ABG pO2 Leland Test O2 Delivery Device Liter Flow Blood Gas Notified Whom Blood Gas Notified Time Sodium 135 L Potassium 3.7 Chloride 106 Carbon Dioxide 24.0 Anion Gap 5 BUN 25 H Creatinine 0.80 Estim Creat Clear Calc 93.96 Est GFR (MDRD) Af Amer 131 Est GFR (MDRD) Non-Af 109 BUN/Creatinine Ratio 31.4 H Glucose 99 Calcium 8.5 Magnesium Microbiology 06/13/19 02:46 Blood Culture (Wb) - Right Forearm Blood Culture - Final No growth in 5 days. 06/13/19 02:15 Blood Culture (Wb) - No Site/Description Given Blood Culture - Final No growth in 5 days. Clinical Impression(s) from Imaging Studies Chest X-Ray 06/12/19 21:25 IMPRESSION: No acute thoracic pathology. Line and tube placement as above. Electronically Signed: Kvng Sarmiento, at 21:42 EST Tel , Service support , Chest X-Ray 06/13/19 05:48 IMPRESSION: Stable support lines and tubes. Probable left lung base atelectasis. Electronically Signed: Odell Vasquez, at 6:19 EST Tel , Service support , Abdomen/Pelvis CT 06/13/19 09:34 IMPRESSION: Biliary stent is seen within the common bile duct. Pneumobilia of the biliary tree. Focal atelectasis and/or infiltrate at the left lung base. Electronically Signed: Davis Honeycutt, at 13:29 EST , Service support , Current Medications Acetaminophen (Tylenol) 650 mg PO Q4H PRN PRN PRN Reason: Pain or Fever Last Admin: 06/20/19 05:50 Dose: 650 mg Documented by: Al Hydroxide/Mg Hydroxide (Mylanta Ii) 30 ml PO Q4H PRN PRN PRN Reason: DYSPEPSIA/INDIGESTION Last Admin: 06/18/19 16:10 Dose: 30 ml Documented by: Albuterol Sulfate (Ventolin Aerosols) 2.5 mg INHALATION Q2H PRN PRN PRN Reason: SOB/Wheezing Last Admin: 06/16/19 20:05 Dose: 2.5 mg Documented by: Calamine/Phenol (Calmoseptine Ointment) 1 applic TOPICAL BID [facility]; Protocol Last Admin: 06/19/19 21:55 Dose: Not Given Documented by: Carvedilol (Coreg) 6.25 mg PO BID [facility] Last Admin: 06/18/19 22:56 Dose: Not Given Documented by: Chlorhexidine Gluconate () 1 each TOPICAL DAILY [facility] Last Admin: 06/19/19 08:07 Dose: Not Given Documented by: Gabapentin (Neurontin) 900 mg PO TIDCM [facility] Last Admin: 06/20/19 08:11 Dose: 900 mg Documented by: Glucagon () 1 mg IM .X1 PRN PRN Reason: Hypoglycemia Heparin Sodium (Porcine) (Heparin Na) 5,000 unit SC Q8 [facility] Last Admin: 06/20/19 05:48 Dose: 5,000 unit Documented by: Dextrose (Dextrose 10%-Water) 250 mls @ 999 mls/hr IV X1 PRN; Protocol PRN Reason: HYPOGLYCEMIA Sodium Chloride () 250 mls @ 15 mls/hr IV .[id number] PRN PRN Reason: Saline Flush Sodium Chloride () 250 mls @ 15 mls/hr IV .[id number] PRN PRN Reason: Additional IVPB Infusion Levothyroxine Sodium (Synthroid) 112 mcg PO DAILY@0600 [facility] Last Admin: 06/20/19 05:48 Dose: 112 mcg Documented by: Lisinopril (Zestril) 2.5 mg PO DAILY [facility] Last Admin: 06/18/19 11:14 Dose: 2.5 mg Documented by: Montelukast Sodium (Singulair) 10 mg PO QHS [facility] Last Admin: 06/19/19 21:56 Dose: 10 mg Documented by: Nicotine (Nicoderm Cq (Pbkc)) 21 mg TRANSDERM. DAILY [facility] Last Admin: 06/19/19 08:05 Dose: 21 mg Documented by: Nutritional Formula (Lactose Free) (Ensure Enlive) 120 ml PO 4X/DAY [facility] Last Admin: 06/19/19 21:58 Dose: 120 ml Documented by: Pantoprazole Sodium (Protonix) 40 mg PO DAILY [facility] Last Admin: 06/19/19 08:07 Dose: 40 mg Documented by: Prednisone () 40 mg PO DAILY@0800 [facility] Last Admin: 06/20/19 08:11 Dose: 40 mg Documented by: Sodium Chloride () 10 - 40 ml IV UD PRN PRN Reason: SALINE FLUSH Last Admin: 06/16/19 10:02 Dose: 20 ml Documented by: Medical Necessity - Tobacco Use Smoking Status: Former smoker Tobacco Use: Cigarettes Assessment/Plan All Active Problems (Last Reviewed 02/22/19 @ 02:51 by Renato Hutson MD) Cholangitis (Acute) Acute ST elevation myocardial infarction (STEMI) of inferior wall (Acute) Severe sepsis (Acute) Sinus tachycardia by electrocardiogram (Acute) Respiratory infection (Acute) Encounter for observation for suspected nervous system disorder (Acute) Takotsubo cardiomyopathy (Acute) Respiratory failure (Acute) Sepsis (Acute) Leukocytosis (Acute) Intractable abdominal pain (Acute) Cocaine abuse (Resolved) Reaction, drug, adverse (Resolved) RECOMMENDATIONS: 1. Encourage incentive spirometer use and mobilize patient as tolerated. 2. Continue baseline cardiac medications. 3. Will sign off from a critical care perspective. Please call with any additional questions. IMPRESSIONS: 1. Acute hypoxic respiratory failure Resolved. Appears to be secondary to flash pulmonary edema secondary to cardiac manifestations. Patient's heart catheterization showed no endovascular issues, but EF was reduced to 25% from 75% previously. Echocardiogram was not suggestive of endocarditis. Diuretics are on hold due to tenuous hemodynamics. The patient has been weaned from supplemental oxygen to room air and is doing well. Encourage incentive spirometer use and mobilize patient as tolerated. 2. Takotsubo cardiomyopathy/acute systolic congestive heart failure Cardiology is following. Patient did have a heart catheterization suggestive of clean coronary arteries. Continue medical management per cardiology recommendations. 3. History of non-Hodgkin's lymphoma/leukocytosis Patient with significant leukocytosis on presentation. This does appear to be improving with current therapy. Unclear if this is secondary to a stress response, acute infection or possible recurrence of Hodgkin's lymphoma. 4. Possible sepsis The patient did have significant leukocytosis and fever. All cultures have been negative. The patient has improved clinically following a 5-day treatment course of antibiotics. This note was generated with [employer] software. It may contain incorrect words, spelling, and punctuation that were not noted in checking the note before signing. Code Visit Inpatient E&M: 04599 Subs Hosp L2
[2019-06-20] MEDS: Carvedilol 6.25 MG Tablet PO (10:35)
[2019-06-20] MEDS: Pantoprazole Sodium 40 MG Tablet PO (10:36)
[2019-06-20] MEDS: Menthol/Lanolin/Calamine/Znox 113 GM Tube 1 APPLIC TOPICAL (10:36)
[2019-06-20] MEDS: Lisinopril 2.5 MG Tablet PO (10:37)
--- NOTE | 2019-06-20 11:08 | CASEMGMT ---
Per RN patient wanted to talk with SW about divorce papers and how to proceed with divorce. SW met with patient and let him know SW does not know anything about divorce or how to proceed with getting a divorce. SW gave him information on paralegal legal secretary in [place] as they would likely be able to guide him further. He thanked SW for the information. Selina CHAMPAGNE MSW
--- NOTE | 2019-06-20 11:46 | CASEMGMT ---
Pt is agreeable to OP therapy at this time and script faxed to [facility] at this time. Pt given original with instructions to call if he does not hear from them in 24-48hrs, voices understanding. Per Hannah ALEJO, pt does not qualify for home oxygen at this time. Pt states no concerns with going home at time of discharge. Pt voices no further questions/concerns/needs at this time. Pilar ALEJO CM
--- NOTE | 2019-06-20 11:47 | DCINST_ITS ---
- Discharge Diagnoses Current Active Problems: Current Active and Chronic Problems (Last Reviewed 02/22/19 @ 02:51 by Renato Hutson MD) Acute ST elevation myocardial infarction (STEMI) of inferior wall (Acute) Severe sepsis (Acute) Sinus tachycardia by electrocardiogram (Acute) Respiratory infection (Acute) Encounter for observation for suspected nervous system disorder (Acute) Takotsubo cardiomyopathy (Acute) Respiratory failure (Acute) You will use the following diet at home:: Cardiac Your food should be the consistency of: Regular Your liquids should be the consistency of: Regular/Thin Discharge Activity: Return to Normal Activity Allergies/Adverse Reactions: Allergies methotrexate Adverse Reaction (Verified 06/12/19 22:07) Hives,Rash,Lesions naproxen [From Naprosyn] Adverse Reaction (Verified 06/12/19 22:07) Upset Stomach BEE VENOM Allergy (Uncoded 06/12/19 22:07) Anaphylaxis ROOT BEER Allergy (Uncoded 06/12/19 22:07) Hives Medications to take at Discharge Levothyroxine [Synthroid] 112 mcg PO DAILY 07/10/16 [place] Carbonate [[place] Carbonate ER] 300 mg PO DAILY 07/10/16 Albuterol Sulfate [Proventil Hfa] 6.7 gm IH Q4H PRN 10/21/16 Gabapentin [Neurontin] 900 mg PO TIDCM 10/21/16 cyanocobalamin (vitamin B-12) 1,000 mcg/mL injection solution 1,000 syr IM QMONTH 30 Days #1 ml 03/21/18 Buprenorphine [Butrans 5 Mcg/Hr] 10 mcg TD QWEEK 02/14/19 Fluticasone/Vilanterol [Breo Ellipta 200-25 Mcg INH] 1 each INHALATION DAILY 02/14/19 Montelukast [Singulair] 10 mg PO QHS 02/14/19 Epi Pen (for allergic rxn) 0.3 mg IM X1 06/13/19 Acetaminophen [Tylenol Tablet] 650 mg PO Q4H PRN PRN tab 06/20/19 Carvedilol [Coreg (Beta Jake)] 6.25 mg PO BID #60 tab 06/20/19 Lisinopril [Zestril] 2.5 mg PO DAILY #30 tab 06/20/19 Pantoprazole Sodium [Protonix] 40 mg PO DAILY #30 tab 06/20/19 predniSONE tablet 40 mg PO DAILY #0 06/20/19 The following prescriptions were given: Carvedilol [Coreg (Beta Jake)] 6.25 mg PO BID #60 tab Transmission Status: Pending to [facility] #30 Pantoprazole Sodium [Protonix] 40 mg PO DAILY #30 tab Transmission Status: Pending to [facility] #30 Lisinopril [Zestril] 2.5 mg PO DAILY #30 tab Transmission Status: Pending to [facility] #30 Primary Care Physician: Hue Ahuja MD [Primary Care Provider] - Please follow up with your Primary Care Physician in: 1-2 weeks Test Results: Test results from this visit will be discussed in further detail at your follow- up appointment, if applicable. Please Follow Up With: Syl Montero MD When: as directed Please Follow Up With: Prasanna Wells DO When: 2 weeks Proposed Discharge Date: 06/20/19
--- NOTE | 2019-06-20 12:59 | PHA.DC.MR ---
Pharmacy Service has performed discharge medication reconciliation for this patient. I SPOKE WITH ANTHONY REGARDING PANTOPRAZOLE. PT WAS ONLY ON IT FOR GI PROPHYLAXIS IN THE ICU. HE IS OKAY WITH DISCONTINUING OUTPATIENT. Home Medications Levothyroxine [Synthroid] 112 mcg PO DAILY 07/10/16 [place] Carbonate [[place] Carbonate ER] 300 mg PO DAILY 07/10/16 Albuterol Sulfate [Proventil Hfa] 6.7 gm IH Q4H PRN 10/21/16 Gabapentin [Neurontin] 900 mg PO TIDCM 10/21/16 cyanocobalamin (vitamin B-12) 1,000 mcg/mL injection solution 1,000 syr IM QMONTH 30 Days #1 ml 03/21/18 Buprenorphine [Butrans 5 Mcg/Hr] 10 mcg TD QWEEK 02/14/19 Fluticasone/Vilanterol [Breo Ellipta 200-25 Mcg INH] 1 each INHALATION DAILY 02/14/19 Montelukast [Singulair] 10 mg PO QHS 02/14/19 Epi Pen (for allergic rxn) 0.3 mg IM X1 06/13/19 Acetaminophen [Tylenol Tablet] 650 mg PO Q4H PRN PRN tab 06/20/19 Carvedilol [Coreg (Beta Jake)] 6.25 mg PO BID #60 tab 06/20/19 Lisinopril [Zestril] 2.5 mg PO DAILY #30 tab 06/20/19 Pantoprazole Sodium [Protonix] 40 mg PO DAILY #30 tab 06/20/19 predniSONE tablet 40 mg PO DAILY #0 06/20/19 The patient's discharge medication list was reviewed for discrepancies and discrepancies were resolved.
--- NOTE | 2019-06-20 14:26 | DS.PCM_ITS ---
<Aaron Quiros - Last Filed: 06/20/19 14:26> Discharge Date and Diagnosis Date of Admission: 06/13/19 Date of Discharge: 06/20/19 - Primary Discharge Diagnosis Takotsubo CM Acute Inferior wall WI Acute hypoxic respiratory failure 2/2 acute systolic CHF Hx IV drug abuse, nicotine abuse Hx Rheumatoid arthritis Hx of Bipolar Hx Hep C Hx Non hodgkins lymphoma in remission Hx Hypothroidism - Secondary Discharge Diagnosis Chronic Problems (Last Reviewed 02/22/19 @ 02:51 by Renato Hutson MD) Avascular necrosis of left femoral head (Chronic) Rheumatoid arthritis (Chronic) Nicotine dependence (Chronic) Old myocardial infarct (Chronic) Hospital Course and Treatment Imaging Results: DIAGNOSTICS: RAD/Chest 1 View (Portable) IMPRESSION: No acute thoracic pathology. Line and tube placement as above. LEFT HEART CATH: CONCLUSIONS No significant CAD, Takotsubo cardiomyopathy with EF of around 25%. No significant or MR RAD/Chest 1 View (Portable) IMPRESSION: Stable support lines and tubes. Probable left lung base atelectasis. Echo; Interpretation Summary The estimated ejection fraction is 30-35 %. Stage 1 diastolic dysfunction. There are regional wall motion abnormalities as specified. Unable to estimate RV systolic pressure due to insufficient tricuspid regurgitant envelope. Compared to echo report dated 01/11/2011, LV function has gone from 75% to around 30 to 35% with above referenced wall motion abnormalities. The study was technically difficult. Contrast injection was performed. CT/Abdomen/Pelvis WITH Contrast IMPRESSION: Biliary stent is seen within the common bile duct. Pneumobilia of the biliary tree. Focal atelectasis and/or infiltrate at the left lung base. Consults: [facility] - Cardiology [facility] - critical care Operations: None Procedures: 2-D Echocardiogram, Cardiac catheterization, Intubation Summary of Care Provided: Hospital Course: The patient is a 54 year old M with pmhx of former IV drug abuse, nicotine abuse, COPD, bipolar discorder, [place] lymphoma in remission, who presented to the ER with c/o AMS. His brother found him pacing and grunting in a dark room. He was brought to the ER in respiratory distress. EKG demonstrated ST elevations in leads II, III, and AVF. He was taken to the [facility] and found to have clean coronaries, with EF 25%, and was felt to have Takotsubo CM. He was intubated and admitted to the ICU. He had a severely elevated WBC count and was thought to be septic from an unclear source with fever, tachycardia, and tachypnea, and was placed on rocephin and flagyl. He had track lazar and was reportedly receiving IV morphine from his . Flu screen and blood cultures were negative. CT abdomen shoed pneumobilia of the biliary tree, CXR showed atelectasis. He was successfully extubated on 06/16/2019. He was transferred to PCU. An echo showed a small improvement in EF to 35%. He was treated for systolic CHF with IV lasix. He was able to be completely weaned off O2. Abx were discontinued and he continued to improve with no further fever and stable vitals. Ultimately he was able to be discharged home in stable condition with outpatient PTOT. He will need to follow up with [facility] pain management to continue outpatient suboxone. He was placed on coreg, and lisinopril at [place]. He will need to follow up with cardiology as directed and pulmonary in 2 weeks, as well as his PCP in 1-2 weeks This patient was seen by Aaron Quiros PA-C under the supervision of Dr. Salazar. [] - Physical Exam Vitals/I&O's: Vital Signs Temp Pulse Resp BP Pulse Ox 97.7 F L 103 H 16 130/60 H 91 06/20/19 12:00 06/20/19 12:00 06/20/19 12:00 06/20/19 12:00 06/20/19 12:00 Oxygen Flow Rate (L/min) 2 Oxygen Delivery Method Room Air Weight: 168 lb 3.403 oz Body Mass Index (BMI) 27.3 Finger Stick Blood Glucose 82 Intake and Output for Last 24 Hours 06/18/19 06/19/19 06/20/19 23:59 23:59 23:59 Intake Total 2462.5 / 2462.5 3910.00 / 3910.00 400 / 400 Output Total 1610 / 1610 925 / 925 Balance 852.5 / 852.5 2985.00 / 2985.00 400 / 400 General: Alert, Oriented x3, Cooperative HEENT: Atraumatic, PERRLA, EOMI, Normocephalic Neck: Supple, No JVD, Negative Carotid Bruits Lungs: Clear to auscultation, Normal air movement Cardiovascular: Regular rate, No murmurs Abdomen: Bowel Sounds Present, Soft, Non Tender Extremities: No edema, Capillary Refill Less than 3 Seconds Skin: No rashes, No breakdown Musculoskeletal: No Tenderness to Palpation of Joints or Extremities Neurological: Cranial nerves II-XII grossly intact Psych/Mental Status: Normal Affect, Appropriate, Alert and oriented to time, place, person, mood and affect Microbiology Past 72 Hours 06/13/19 02:46 Blood Culture (Wb) - Right Forearm Blood Culture - Final No growth in 5 days. 06/13/19 02:15 Blood Culture (Wb) - No Site/Description Given Blood Culture - Final No growth in 5 days. Laboratory Results 06/20/19 06:15: WBC 24.0 H, RBC 4.90, Hgb 15.3, Hct 46.7, MCV 95.3 H, MCH 31.2, MCHC 32.8, RDW Std Deviation 40.5, RDW Coeff of Re 11.7, Plt Count 349, MPV 9.3, Immature Gran % (Auto) 3.000 H, Neut % (Auto) 62.4, Lymph % (Auto) 28.1, Tucker % (Auto) 5.5, Eos % (Auto) 0.6, Baso % (Auto) 0.4, Absolute Neuts (auto) 1 5.0 H, Absolute Lymphs (auto) 6.75 H, Nucleated RBC % 0, Reactive Lymphocytes 2+ 06/20/19 06:15: Sodium 135 L, Potassium 3.7, Chloride 106, Carbon Dioxide 24.0, Anion Gap 5, BUN 25 H, Creatinine 0.80, Estim Creat Clear Calc 93.96, Est GFR (MDRD) Af Amer 131, Est GFR (MDRD) Non-Af 109, BUN/Creatinine Ratio 31.4 H, Glucose 99, Calcium 8.5 Discharge Diet: Low fat/ Low Cholesterol, 2000 mg Sodium Diet Discharge Activity: Return to Normal Activity Home Medications: Medications to take at Discharge Levothyroxine [Synthroid] 112 mcg PO DAILY 07/10/16 [place] Carbonate [[place] Carbonate ER] 300 mg PO DAILY 07/10/16 Albuterol Sulfate [Proventil Hfa] 6.7 gm IH Q4H PRN 10/21/16 Gabapentin [Neurontin] 900 mg PO TIDCM 10/21/16 cyanocobalamin (vitamin B-12) 1,000 mcg/mL injection solution 1,000 syr IM QMONT H 30 Days #1 ml 03/21/18 Buprenorphine [Butrans 5 Mcg/Hr] 10 mcg TD QWEEK 02/14/19 Fluticasone/Vilanterol [Breo Ellipta 200-25 Mcg INH] 1 each INHALATION DAILY 02/14/19 Montelukast [Singulair] 10 mg PO QHS 02/14/19 Epi Pen (for allergic rxn) 0.3 mg IM X1 06/13/19 Acetaminophen [Tylenol Tablet] 650 mg PO Q4H PRN PRN tab 06/20/19 Carvedilol [Coreg (Beta Jake)] 6.25 mg PO BID #60 tab 06/20/19 Lisinopril [Zestril] 2.5 mg PO DAILY #30 tab 06/20/19 predniSONE tablet 40 mg PO DAILY #0 06/20/19 Following Prescrptions Were Given to Patient: Carvedilol [Coreg (Beta Jake)] 6.25 mg PO BID #60 tab Transmission Status: Received by [facility] #30 Lisinopril [Zestril] 2.5 mg PO DAILY #30 tab Transmission Status: Received by [facility] #30 Primary Care Physician: Hue Ahuja MD [Primary Care Provider] - Please follow up with your Primary Care Physician in: 1-2 weeks Please Follow Up With: Syl Montero MD When: as directed Please Follow Up With: Prasanna Wells DO When: 2 weeks Please Follow Up With: Hue Ahuja MD Disposition: Home Minutes spent on discharge:: 35 Medical Necessity - Tobacco Use Smoking Status: Former smoker Tobacco Use: Cigarettes Meaningful Use Info Meaningful Use Diagnoses (Choose all that apply): None applicable <Lei Salazar - Last Filed: 06/20/19 15:46> Discharge Date and Diagnosis - Secondary Discharge Diagnosis Chronic Problems (Last Reviewed 02/22/19 @ 02:51 by Renato Hutson MD) Avascular necrosis of left femoral head (Chronic) Rheumatoid arthritis (Chronic) Nicotine dependence (Chronic) Old myocardial infarct (Chronic) Hospital Course and Treatment Summary of Care Provided: This patient was seen in conjunction with Aaron Quiros PA-C . I have independently interviewed and examined the patient and reviewed pertinent historical, laboratory, and other data. Please refer to Aaron Quiros PA-C note for details of this patient's presentation, findings, and recommendations. I have reviewed Aaron Quiros PA-C note and concur with documented findings. Patient is a 55-year-old gentleman admitted with shortness of breath and assessment of acute respiratory failure made. Patient was on the vent weaned off on 06/16/2019. 1. Acute hypoxic respiratory failure 2. Acute congestive heart failure with decreased ejection fraction with ejection of 25% 3. Hypotension 4. Takotsubo cardiomyopathy 5. Sepsis 6. History of IV drug abuse 7. Non-Hodgkin's lymphoma currently in remission 8. Chronic hep C 9. Hypothyroidism Hospital course; as documented above - Physical Exam Vitals/I&O's: Vital Signs Temp Pulse Resp BP Pulse Ox 97.7 F L 103 H 16 130/60 H 91 06/20/19 12:00 06/20/19 12:00 06/20/19 12:00 06/20/19 12:00 06/20/19 12:00 Oxygen Flow Rate (L/min) 2 Oxygen Delivery Method Room Air Weight: 76.3 kg Body Mass Index (BMI) 27.3 Finger Stick Blood Glucose 82 Intake and Output for Last 24 Hours 06/18/19 06/19/19 06/20/19 23:59 23:59 23:59 Intake Total 2462.5 / 2462.5 3910.00 / 3910.00 400 / 400 Output Total 1610 / 1610 925 / 925 Balance 852.5 / 852.5 2985.00 / 2985.00 400 / 400 Microbiology Past 72 Hours 06/13/19 02:46 Blood Culture (Wb) - Right Forearm Blood Culture - Final No growth in 5 days. 06/13/19 02:15 Blood Culture (Wb) - No Site/Description Given Blood Culture - Final No growth in 5 days. Laboratory Results 06/20/19 06:15: WBC 24.0 H, RBC 4.90, Hgb 15.3, Hct 46.7, MCV 95.3 H, MCH 31.2, MCHC 32.8, RDW Std Deviation 40.5, RDW Coeff of Re 11.7, Plt Count 349, MPV 9.3, Immature Gran % (Auto) 3.000 H, Neut % (Auto) 62.4, Lymph % (Auto) 28.1, Tucker % (Auto) 5.5, Eos % (Auto) 0.6, Baso % (Auto) 0.4, Absolute Neuts (auto) 15.0 H, Absolute Lymphs (auto) 6.75 H, Nucleated RBC % 0, Reactive Lymphocytes 2+ 06/20/19 06:15: Sodium 135 L, Potassium 3.7, Chloride 106, Carbon Dioxide 24.0, Anion Gap 5, BUN 25 H, Creatinine 0.80, Estim Creat Clear Calc 93.96, Est GFR (MDRD) Af Amer 131, Est GFR (MDRD) Non-Af 109, BUN/Creatinine Ratio 31.4 H, Glucose 99, Calcium 8.5 Code Visit Inpatient E&M: 51200 Disch Hosp
--- NOTE | 2019-06-21 15:44 | CASEMGMT ---
MELO CM Discharge Follow-up Phone Call: EDISON: Renetta Strata: 4 Call Date: 06/21/2019 Discharge Date: 06/20/2019 Time of Call: 1544 Duration: 0 Admitting Diagnosis: Takotsubo CM, IN, CHF, acute respiratory failure Discharge follow-up call attempted. Identifying voicemail received but mailbox was stated to be full. Message unable to be left. Guilherme Canela RN
== END 2019-06-20 12:48 | disposition home or self-care (01) | DRG 192 ==
LOC: ED 22:00 → ICU 22:41 → PCU 06-18 17:03
PROVIDERS: Internal Medicine Critical Care Medicine; Student in an Organized Health Care Education/Training Program; Admitting Provider Internal Medicine; Emergency Provider Emergency Medicine; Family Provider Internal Medicine; PCP Internal Medicine; Referring Provider Specialist; Visit Provider Internal Medicine
DX: I51.81 Takotsubo syndrome (principal); J96.01 Acute respiratory failure with hypoxia; I21.19 ST elevation (STEMI) myocardial infarction involving other coronary artery of inferior wall; I50.21 Acute systolic (congestive) heart failure; A41.9 Sepsis, unspecified organism; C85.90 Non-Hodgkin lymphoma, unspecified, unspecified site; E03.9 Hypothyroidism, unspecified; B18.2 Chronic viral hepatitis C; I95.9 Hypotension, unspecified; M06.9 Rheumatoid arthritis, unspecified; F31.9 Bipolar disorder, unspecified; Z87.891 Personal history of nicotine dependence; I25.2 Old myocardial infarction; F19.11 Other psychoactive substance abuse, in remission
CPT/HCPCS: 31500; 31720; 36415; 36600; 51702; 71045; 74177; 80048; 80053; 80307; 81001; 82803; 82962; 83690; 83735; 83880; 84100; 84484; 85025; 85610; 85730; 87040; 87804; 93005; 93306; 93458; 94002; 94003; 94640; 94660; 97110; 97116; 97162; 97163; 97166; 97530; 97802; 99251; 99285; J7030; J7040; J7050; Q9957; Q9967; A4216; C1769; C1894; C8929; G0463; J1940; J2405

== ENCOUNTER → 2019-08-02 12:28 | Outpatient (CLI) | payer MEDICAID, SELFPAY ==
[2019-07-10 13:20] VITALS: BMI 27.3
[2019-07-13 08:56] VITALS: BMI 28.8
[2019-08-02 13:12] VITALS: PULSE 106; PULSE 114; PULSE 74; PULSE 82; PULSE 84; PULSE 85; PULSE 90; PULSE 99; O2SAT 92; O2SAT 93; O2SAT 95; O2SAT 96
--- NOTE | 2019-08-04 09:52 | PCM.PSN.6M ---
PSN 6 Minute Walk Test - 6 Minute Walk Test 6 Minute Walk Test: 6 Minute Walk Test PSN:6-Minute Walk Test Start: 08/02/19 13:12 Freq: Status: Active Protocol: [id number].6MINW Document 08/02/19 13:12 SMB (Rec: 08/02/19 13:16 SMB [id number]) 6 Minute Walk Test Date Performed 08/02/19 Time Performed 12:40 Height 5 ft 7 in Weight: 173 lb Weight in Pounds 173.[address]: Mickie Carrasco Assistive device used: None Pre-test Oxygen Delivery Method Room Air Pulse Ox (%) 96 Pulse Rate (60-100 beats/min) 114 H Dyspnea Camron Scale (0-10) 0 Exertion Camron Scale (6-20) 11 1st minute Oxygen Delivery Method Room Air Pulse Ox (%) 93 Pulse Rate (60-100 beats/min) 99 2nd minute Oxygen Delivery Method Room Air Pulse Ox (%) 92 Pulse Rate (60-100 beats/min) 90 3rd minute Oxygen Delivery Method Room Air Pulse Ox (%) 93 Pulse Rate (60-100 beats/min) 74 4th minute Oxygen Delivery Method Room Air Pulse Ox (%) 93 Pulse Rate (60-100 beats/min) 82 5th minute Oxygen Delivery Method Room Air Pulse Ox (%) 92 Pulse Rate (60-100 beats/min) 84 Reported Symptoms Increased Work of Breathing 6th minute Oxygen Delivery Method Room Air Pulse Ox (%) 93 Pulse Rate (60-100 beats/min) 85 Post-test Oxygen Delivery Method Room Air Pulse Ox (%) 95 Pulse Rate (60-100 beats/min) 106 H Dyspnea Camron Scale (0-10) 2 Exertion Camron Scale (6-20) 14 Full Laps Walked 14 Partial Lap, Number of Tiles Walked 11 Total Distance Walked (ft) 837 - Interpretation Interpretation: The patient ambulated 837 feet over the course of 6 minutes beginning on room air without assistive devices or breaks. Pretesting oxygen saturation was noted to be 96% on room air. With ambulation, the bee oxygen saturation was 92%. There was no significant exertional oxygen desaturation. - Recommendations Recommendations: There is no indication for the use of supplemental oxygen at this time.
== END ==
PROVIDERS: PCP Internal Medicine; Referring Provider Nurse Practitioner Acute Care; Visit Provider Nurse Practitioner Acute Care
DX: R06.09 Other forms of dyspnea (principal)
CPT/HCPCS: 94618; 94762

== ENCOUNTER → 2019-08-03 14:22 | Outpatient (CLI) | payer MEDICAID, SELFPAY ==
[2019-07-13 08:56] VITALS: BMI 28.8
== END ==
PROVIDERS: PCP Internal Medicine; Referring Provider Nurse Practitioner Acute Care; Visit Provider Nurse Practitioner Acute Care
DX: J96.90 Respiratory failure, unspecified, unspecified whether with hypoxia or hypercapnia (principal)
CPT/HCPCS: 94762

== ENCOUNTER 2019-08-13 21:19 | Emergency (ER) | payer MEDICAID, SELFPAY ==
[2019-07-13 08:56] VITALS: BMI 28.8
[2019-08-13 21:20] VITALS: BP 117/61; PULSE 102; RESP 18; TEMP 36.6; O2SAT 99; BMI 27.9
[2019-08-13 21:23] VITALS: BP 117/61; PULSE 102; RESP 18; TEMP 36.6; O2SAT 99
--- NOTE | 2019-08-13 22:12 | ED.RN ---
SEPSIS SCREEN CANCELLED PER DR HURLEY
--- NOTE | 2019-08-13 22:25 | EKG12_ITS ---
Test Reason : FEVER Blood Pressure : / mmHG Vent. Rate : 090 BPM Atrial Rate : 090 BPM P-R Int : 120 ms QRS Dur : 072 ms QT Int : 332 ms P-R-T Axes : 035 069 038 degrees QTc Int : 406 ms Normal sinus rhythm Normal ECG Confirmed by BETY MOHAN, PETRONA ([id number]), clinical editor DORIS KAYE ([id number]) on 08/14/2019 1:46:31 PM Referred By: RAMONITA Confirmed By:PETRONA ALBERT MD
--- NOTE | 2019-08-13 22:26 | ED.VISSUMM ---
- ER Visit Summary Date of Service: 08/13/19 Chief Complaint: Cough with URI symptoms. History of Present Illness: The patient is a 54 M history of [place] cardiomyopathy. Patient's significant other was exposed to people who recently traveled to the country of [place]. They states last 2 days he is come down with a cough subjective fever but his temperature was only 99.8. He denies any nausea or vomiting. Denies any diarrhea or dysuria. Physical Examination: No acute distress vital signs are stable afebrile. Pulse ox 98% on room air no signs of hypoxia. Patient does not look septic or toxic. H EENT exam unremarkable. Moist mucous membranes. TMs normal. Neck nontender no lymphadenopathy. Lungs clear to auscultation bilaterally. Heart regular rhythm rate about 100 no murmur. Abdomen soft nontender normal bowel sounds no peritoneal signs. Patient moving all 4 extremities. Calves are nontender. Neurologically awake and alert with no focal motor deficits. Test Results: EKG is rhythm rate of 90 with no acute abnormalities. Unchanged from prior EKG from February 2019. Chest x-ray portable 1 view read by myself the radiologist shows no acute abnormality. Normal cardiac silhouette mediastinum. No infiltrate. Emergency Department Course and Treatment: Clinically patient is a viral syndrome. Clinically does not look ill. We went through the coronavirus algorithm. Also is spoke to the health department patient does not meet criteria to be tested. Repeat exam he is doing well at 2352 and be discharged home. Treatment Plan: Fluids and rest. Tylenol as needed. Follow-up for outpatient testing. Disposition: Discharge Impression: Acute viral syndrome This note was generated with [employer] dictation software. It may contain incorrect words, spelling, and punctuation that were not noted in review of the chart prior to signing ED Disposition - Plan for ED Patient: Referrals: Hue Ahuja MD [Primary Care Provider] -
--- NOTE | 2019-08-13 22:39 | ED.RN ---
spoke with [facility] at this time over patients concern for the [place] virus. Based off of patients signs and symptoms and history of present illness patient at this time would not qualify for testing. Patient has not had exposure to any positive patients or recent travel outside of the country. Dr. Gallegos made aware. Will explain to the patient at this time the reasons testing is not being performed.
--- NOTE | 2019-08-13 22:50 | RAD_ITS ---
STUDY: X-RAY CHEST REASON FOR EXAM: Male, 54 years old. chest pain and fever. AMS. TECHNIQUE: PA and lateral views of the chest. COMPARISON: Prior study of 06/13/2019 FINDINGS: There has been interval removal of nasogastric and endotracheal tubes seen on the previous study. There are minimal streaky fibrotic or atelectatic changes of the left lung base, new in the interval. There is no demonstrated pleural abnormality. Normal size heart. Normal mediastinum and rima. Normal visualized pulmonary arteries. Normal visualized aortic arch and descending thoracic aorta. Normal visualized thoracic spine. Normal visualized ribs, clavicles, and shoulders. There is no demonstrated abnormality of the visualized soft tissue structures of the upper abdomen. RAD/Chest 1 View (Portable) IMPRESSION: Interval removal of nasogastric and endotracheal tubes seen previously. Minimal streaky fibrotic or atelectatic changes of the left lung base, new in the interval. Electronically Signed: Jorge Portillo MD at 23:23 EDT , Service support ,
[2019-08-13 23:54] VITALS: BP 125/69; PULSE 91; RESP 18; TEMP 37; O2SAT 98
--- NOTE | 2019-08-13 23:54 | ED.DEP ---
ED Disposition - Plan for ED Patient: Disposition: Home or Assisted Living Instructions: VIRAL SYNDROME (Adult) Referrals: Hue Ahuja MD [Primary Care Provider] - Additional Instructions: Fluids and rest. Alternate Tylenol Motrin for body aches. Follow-up with your doctor if not improving.
== END 2019-08-14 00:06 | disposition home or self-care (01) ==
PROVIDERS: Emergency Provider Emergency Medicine; PCP Internal Medicine
DX: J06.9 Acute upper respiratory infection, unspecified (principal); B34.9 Viral infection, unspecified; I42.9 Cardiomyopathy, unspecified; Z79.899 Other long term (current) drug therapy
CPT/HCPCS: 71045; 93005; 99282

== ENCOUNTER 2019-08-22 05:12 | Emergency (ER) | payer MEDICAID, SELFPAY ==
[2019-08-22 05:12] VITALS: BP 147/90; PULSE 112; RESP 16; TEMP 36.4; O2SAT 97; BMI 28.4
--- NOTE | 2019-08-22 05:17 | RAD_ITS ---
STUDY: X-RAY - RIGHT HAND REASON FOR EXAM: Male, 54 years old. Pain and swelling after trauma. TECHNIQUE: 3 view(s) of the hand. COMPARISON: November 07, 2017. FINDINGS: Normal radiocarpal articulation. Normal distal radioulnar joint. Normal visualized carpal bones. Normal carpal articulations Normal carpometacarpal articulation of the thumb. Normal second through fifth carpometacarpal joints. Deformity distal metaphysis of the fifth metacarpal unchanged compatible with a healed fracture. Normal metacarpophalangeal joint of the thumb. Normal interphalangeal joint of the thumb. Normal proximal and distal phalanges of the thumb. Normal metacarpophalangeal joints of the second through fifth fingers. Normal proximal and distal interphalangeal joints of the second through fifth fingers. Normal phalanges of the second through fifth fingers. Mild soft tissue swelling dorsum of hand. RAD/Hand Min 3 Views IMPRESSION: Mild soft tissue swelling, no acute fracture. Old fracture fifth metacarpal. Electronically Signed: Will Lees MD at 5:51 EDT , Service support ,
--- NOTE | 2019-08-22 05:17 | ED.DCSUM_ITS ---
History of Present Illness Chief Complaint: Upper Extremity Injury Informant: Patient Narrative: Patient stated that he accidentally fell and struck his hand on the ground in the corner of the wall 30 minutes ago. He is having pain in the dorsum of his hand. He is unsure if he broke a bone. Comes in for further evaluation. No home treatment. Worsened by squeezing movement. Relieved by rest. Denies any wrist or other pain - Past Medical History (1) Dyspnea on minimal exertion Status: Acute (2) Syncope Status: Acute (3) Intravenous drug abuse Status: Chronic (4) Nicotine dependence Status: Chronic (5) Takotsubo cardiomyopathy Status: Chronic (6) Acute ST elevation myocardial infarction (STEMI) of inferior wall Status: Resolved (7) Acute hypoxemic respiratory failure Status: Resolved (8) Acute systolic CHF (congestive heart failure) Status: Resolved (9) Non-Hodgkin lymphoma in remission Status: Resolved Past Medical History - Allergies and Home Meds Allergies/Adverse Reactions: Allergies methotrexate Adverse Reaction (Verified 08/13/19 21:24) Hives,Rash,Lesions naproxen [From Naprosyn] Adverse Reaction (Verified 08/13/19 21:24) Upset Stomach BEE VENOM Allergy (Uncoded 08/13/19 21:24) Anaphylaxis ROOT BEER Allergy (Uncoded 08/13/19 21:24) Hives Primary Care Physician: Hue Ahuja MD [Primary Care Provider] - Prior records reviewed: Yes Past Medical History: - - see Problem list Surgical History: appendectomy, arthroscopy, knee, cholecystectomy, total hip arthroplasty, - - Facial reconstructive surgery. Lives: With Family Smoking Status: Current every day smoker Alcohol: None Drugs: None - Family History Maternal Family History: Reports: Cancer Paternal Family History: Reports: Cancer Review of Systems General: Denies: Chills, Fever, Sweats Eyes: Denies: Visual changes - bilaterally, Diplopia ENT: Denies: Rhinorrhea, Sore throat Cardiovascular: Denies: Chest pain, Palpitations Respiratory: Denies: Dyspnea, Cough, Dyspnea on exertion Gastrointestinal: Denies: Abdominal pain, Nausea, Vomiting, Diarrhea, Melena, Hematochezia Genitourinary: Denies: Dysuria, Hematuria, Frequency Musculoskeletal: Reports: Swelling, Extremity Pain. Denies: Back pain Skin: Denies: Rash, Wounds Neurological: Denies: Headache, Weakness, Numbness Physical Exam Vital Signs/Narrative: Vital Signs Temp Pulse Resp BP Pulse Ox 08/22/19 05:12 97.6 F L 112 H 16 147/90 H 97 General: Well nourished, Well developed, No Acute Distress Head: Normocephalic, Atraumatic Eyes: Perrl, EOMI ENT: Moist mucous membranes, No rhinorrhea Neck: Supple, Nontender Cardiovascular: Regular rate, Regular rhythm, No murmurs Respiratory: No distress, CTA bilaterally, Chest nontender Abdomen: Soft, Nontender, Nondistended, Normal bowel sounds Back: Nontender, Normal Inspection Extremities: Tenderness - Of the dorsum of the hand over the second through fourth mid metacarpals. Mild soft tissue swelling and bruising. Negative for: Nontender, No edema Skin: No rash. Negative for: Normal color Neurological: Alert, Oriented x3, Cranial nerves II-XII grossly intact, Normal Strength, Normal Sensation Psychological: Normal affect, Normal Mood Diagnostic/Tx/Re-eval - Medical Decision Making Patient has no proximal tenderness or injury to his fingers. X-ray of the hand obtained. Given ice pack and Tylenol. X-ray negative for acute fracture. Old boxer's fracture noted. Patient given Karan wrap. We will follow-up as an out patient hand contusion ED Disposition - Plan for ED Patient: Disposition: Home or Assisted Living Diagnosis: Hand contusion Instructions: CONTUSION, Upper Extremity Referrals: Hue Ahuja MD [Primary Care Provider] -
[2019-08-22] MEDS: Acetaminophen 325 MG Tablet 650 MG PO (05:31)
== END 2019-08-22 06:12 | disposition home or self-care (01) ==
PROVIDERS: Emergency Provider Emergency Medicine; PCP Internal Medicine
DX: S60.221A Contusion of right hand, initial encounter (principal); W19.XXXA Unspecified fall, initial encounter; Y93.9 Activity, unspecified; Y92.9 Unspecified place or not applicable; I51.81 Takotsubo syndrome; I25.2 Old myocardial infarction; Z87.09 Personal history of other diseases of the respiratory system; Z85.72 Personal history of non-Hodgkin lymphomas; Z79.899 Other long term (current) drug therapy; F17.200 Nicotine dependence, unspecified, uncomplicated
CPT/HCPCS: 73130; 99283

== ENCOUNTER 2019-09-06 20:38 | Emergency (ER) | payer MEDICAID, SELFPAY ==
[2019-09-06 20:38] VITALS: BP 135/86; PULSE 90; RESP 16; TEMP 36.7; O2SAT 98; BMI 29.5
--- NOTE | 2019-09-06 20:55 | EKG12_ITS ---
Test Reason : CP Blood Pressure : / mmHG Vent. Rate : 090 BPM Atrial Rate : 090 BPM P-R Int : 120 ms QRS Dur : 070 ms QT Int : 346 ms P-R-T Axes : 027 064 010 degrees QTc Int : 423 ms Normal sinus rhythm Normal ECG Confirmed by GAYATRI MOHAN, GM ([id number]), film and video editor OSCAR QUEZADA ([id number]) on 09/11/2019 2:18:01 PM Referred By: MEI Confirmed By:JESÚS MENDIETA MD
--- NOTE | 2019-09-06 20:55 | RAD_ITS ---
STUDY: X-RAY CHEST REASON FOR EXAM: Male, 54 years old. CHEST PAIN, NASAL CONGESTION, LUNG CONGESTION TECHNIQUE: Single frontal view of the chest. COMPARISON: August 13, 2019 FINDINGS: There is no new focal consolidation. There is a stable vague opacity within the left costophrenic angle which may be secondary to a confluence of shadows. Normal size heart. Normal mediastinum and rima. Normal visualized pulmonary arteries. Normal visualized aortic arch and descending thoracic aorta. Normal visualized thoracic spine. Normal visualized ribs, clavicles, and shoulders. There is no demonstrated abnormality of the visualized soft tissue structures of the upper abdomen. RAD/Chest 1 View (Portable) IMPRESSION: No acute cardiopulmonary process. Electronically Signed: Nadege Fam MD at 21:14 EDT Tel , Service support ,
--- NOTE | 2019-09-06 20:56 | ED.VISSUMM ---
- ER Visit Summary Date of Service: 09/06/19 Chief Complaint: Chest discomfort History of Present Illness: The patient is a 54 M history of COPD, cardiomyopathy with 35% ejection fraction status post Tocco Audrey, prior CA, cardiac cath without stent and prior non-Hodgkin's lymphoma. He is also had multiple surgeries. Patient states the last 2 weeks intermittently he has had stabbing left-sided chest discomfort. He denies shortness of breath. No history of DVT or PE. Not specifically related to exertion. Patient states he has had 3 prior cardiac catheterizations of the last 9 years never needing any stents or intervention. Physical Examination: Middle-aged male no acute distress vital signs stable afebrile. Pulse ox 98% on room air no signs of hypoxia. H EENT exam unremarkable. Neck nontender. No JVD. Lungs clear to auscultation bilaterally. Heart regular rhythm no murmur. Rate about 90. Chest wall nontender. Abdomen soft nontender, normal bowel sounds no peritoneal signs. Patient moving all 4 extremities. Calves nontender without edema or cords. Equal symmetrical radial pulses. Back nontender. Skin no rashes. Multiple tattoos. Neurologically awake alert with no focal motor deficits. Test Results: CBC white count 17,000 his white counts are always elevated the last one was 24. Hemoglobin 12. Chemistries normal normal creatinine and gap. Troponin normal. EKG normal sinus rhythm rate of 90 with no acute signs of CA or ischemia. Chest x-ray normal cardiac silhouette mediastinum. Unchanged from prior. Read by myself and radiologist. Emergency Department Course and Treatment: Patient with atypical noncardiac sounding chest pain. Work-up negative. Repeat exam at 11:08 PM patient is doing well. He just recently had a heart catheterization in June. At that time it showed no significant coronary disease. I am comfortable with him being discharged home with outpatient follow-up. Treatment Plan: Follow-up with his ecg technician. Disposition: Discharge Impression: Chest pain uncertain etiology History of cardiomyopathy This note was generated with [employer] dictation software. It may contain incorrect words, spelling, and punctuation that were not noted in review of the chart prior to signing ED Disposition - Plan for ED Patient: Referrals: Hue Ahuja MD [Primary Care Provider] -
[2019-09-06 21:19] VITALS: O2SAT 97
[2019-09-06] MEDS: Aspirin 81 MG TAB.CHEW 324 MG PO (21:19)
[2019-09-06 21:40] LABS: Anion Gap 5 (5-15); BUN 15 mg/dL (7-18); BUN/Creat Ratio 18.2 RATIO (10-20); Calcium,Total 9.1 mg/dL (8.5-10.1); Chloride 106 mmol/L (98-107); Creatinine, Serum 0.82 mg/dL (0.70-1.30); EST Glomerular Filtration Rate 104 mL/min (>60); Est Glom Filt Rate - Afr Amer 126 mL/min (>60); Estimated Creatinine Clearance 95.09 ml/min; Glucose 97 mg/dL (74-106); Potassium 3.8 mmol/L (3.5-5.1); Sodium Level 141 mmol/L (136-145)
[2019-09-06 21:51] LABS: Absolute Lymphocyte Count 2.54 X10^3/uL (0.83-4.51); Absolute Neutrophil Count 13.6 X10^3/uL (2.0-7.7); Basophil# 0.04 X10^3/uL; Basophil% 0.2 % (0-1); Eosinophil# 0.16 X10^3/uL; Eosinophils% 0.9 % (0-5); Hematocrit 39.5 % (40-54); Hemoglobin 12.4 g/dL (13.0-16.5); Lymphocyte # 2.54 X10^3/ul (4.0); Lymphocyte % 14.3 % (19-41); Mean Corp Hgb Conc 31.4 g/dL (32-36); Mean Corpuscular Hgb 29.5 pg (27.0-32.0); Mean Platelet Vol. 9.2 fl (6.2-12.0); Monocyte# 1.22 X10^3/uL; Monocyte% 6.9 % (0-10); NRBC Flagged by Analyzer 0 % (0-5); Neutrophil % 76.9 % (47-70); Platelet Count 281 K/mm3 (150-450); RBC Distribution Width SD 47.8 fl (35.1-43.9); White Blood Count 17.7 K/mm3 (4.4-11.0)
[2019-09-06 22:26] VITALS: BP 119/81; PULSE 74; RESP 15; O2SAT 96
--- NOTE | 2019-09-06 23:09 | ED.DEP ---
ED Disposition - Plan for ED Patient: Disposition: Home or Assisted Living Instructions: ED Chest Pain Atypical Unkn Cause Referrals: Hue Ahuja MD [Primary Care Provider] - As soon as possible Additional Instructions: All your test tonight including EKG, chest x-ray and blood work are unremarkable. Aloe up with your primary care provider and/or your community development planner. Continue your current medications.
[2019-09-06 23:10] VITALS: BP 118/91; PULSE 69; RESP 15; O2SAT 97
== END 2019-09-06 23:18 | disposition home or self-care (01) ==
PROVIDERS: Emergency Provider Emergency Medicine; PCP Internal Medicine
DX: J44.9 Chronic obstructive pulmonary disease, unspecified (principal); I42.9 Cardiomyopathy, unspecified; Z79.899 Other long term (current) drug therapy; I25.2 Old myocardial infarction; Z85.72 Personal history of non-Hodgkin lymphomas; Z95.5 Presence of coronary angioplasty implant and graft
CPT/HCPCS: 71045; 80048; 84484; 85025; 93005; 99285; A4216

== ENCOUNTER → 2019-12-31 13:56 | Outpatient (CLI) | payer MEDICAID, SELFPAY ==
[2019-09-12 13:38] VITALS: BMI 28.4
[2019-09-27 12:31] VITALS: BMI 28.4
--- NOTE | 2019-12-31 13:57 | ECHOCS_ITS ---
Reason For Study: CHEST PAIN Procedure This was a 2D Doppler, Color Flow transthoracic echocardiogram. The study was technically difficult. Contrast injection was performed. Exam performed in department. Left Ventricle Normal LV size. Left ventricular systolic function is normal. The estimated ejection fraction is 65 %. Normal diastology for age. No regional wall motion abnormalities noted. Right Ventricle Normal RV size. Normal systolic function. Atria Normal left atrium. Normal right atrium. Mitral Valve Normal mitral valve. Tricuspid Valve Normal tricuspid valve. Aortic Valve The aortic valve is not well visualized. Pulmonic Valve Normal pulmonic valve. Great Vessels Normal aortic root. The pulmonary artery is normal size. Normal inferior vena cava. Pericardium/Pleural No pericardial effusion. Medication 22 gauge I.V. with prn adaptor inserted into right arm. Diluted definity 4.0ml given slow IV push to enhance endocardial definition. MMode/2D Measurements & Calculations LVIDd: 4.6 cm IVSd: 0.88 cm LAV(MOD-bp): 47.2 ml LVIDs: 3.0 cm LVPWd: 0.89 cm RVDd: 3.3 cm FS: 35.4 % LAV(MOD-bp) Indexed: 24.8 ml/m2 LAV(MOD-sp2): 44.6 ml LAV(MOD-sp4): 48.8 ml SV(MOD-sp4): 47.8 ml SV(sp4-el): 51.7 ml LVAd ap4: 28.0 cm2 EDV(MOD-sp4): 83.7 ml EDV(sp4-el): 86.9 ml LVAs ap4: 16.2 cm2 ESV(MOD-sp4): 35.9 ml ESV(sp4-el): 35.3 ml EF(MOD-sp4): 57.1 % EF(sp4-el): 59.4 % LA A4 area: 17.4 cm2 RA A4 area: 11.7 cm2 Time Measurements MV dec time: 0.21 sec Doppler Measurements & Calculations MV E max jerson: 59.9 cm/sec Lat Peak E' Jerson: 5.9 cm/sec Med Peak E' Jerson: 6.8 cm/sec MV A max jerson: 49.1 cm/sec E/E' lat: 10.2 E/E' med: 8.8 MV E/A: 1.2 Ao V2 max: 97.1 cm/sec LV V1 max: 83.8 cm/sec PA V2 max: 100.9 cm/sec Ao max P.8 mmHg LV V1 max P.8 mmHg Interpretation Summary Normal LV size. Left ventricular systolic function is normal. The estimated ejection fraction is 65 %. Normal diastology for age. Contrast injection was performed. Ordering Physician: Dk Shannon Referring Physician: MINERVA PERALES Performed By: Nevaeh Will, VASHTICS, RVT
== END ==
PROVIDERS: PCP Internal Medicine; Referring Provider Internal Medicine Cardiovascular Disease; Visit Provider Internal Medicine Cardiovascular Disease
DX: R07.9 Chest pain, unspecified (principal); I51.81 Takotsubo syndrome
CPT/HCPCS: 93306; Q9957; A4216; C8929

== ENCOUNTER 2020-03-10 14:13 | Emergency (ER) | payer MEDICAID, SELFPAY ==
[2020-01-10 14:38] VITALS: BMI 29.3
[2020-03-10 14:14] VITALS: BP 135/79; PULSE 104; RESP 18; TEMP 35.7; O2SAT 97; BMI 29.5
--- NOTE | 2020-03-10 15:01 | RAD_ITS ---
STUDY: X-RAY - RIGHT ELBOW REASON FOR EXAM: Male, 54 years old. PT HAS WOUND ON R ELBOW. THINKS HE HAS MRSA and quot;IN THE BONE and quot;. NO KNOWN INJ. TECHNIQUE: 3 view(s) of the elbow. COMPARISON: None. FINDINGS: Normal visualized humerus, radius and ulna. Normal radiocapitellar and ulnotrochlear articulations. The soft tissue structures are unremarkable. RAD/Elbow min 3 Views IMPRESSION: Normal x-ray examination of the elbow. Electronically Signed: Clemencia Gann, at 15:20 EDT Tel , Service support ,
--- NOTE | 2020-03-10 15:26 | ED.DCSUM_ITS ---
- ER Visit Summary Date of Service: 03/10/20 Chief Complaint: Right elbow pain History of Present Illness: The patient is a [address] Quiroz. He reports he has pain to his right elbow that began 2 days ago. He denies any trauma. No fall, MVA, or change in activity. He reports that he has a sharp pain is 10 of 10 with touching it or straightening it completely. Zeta 10 at rest but is not taken anything for pain. Denies any paresthesias or weakness distally. Patient reports that yesterday he pushed on it and had purulent drainage from this. Physical Examination: Vitals: Stable. Afebrile. General: Well-nourished and well-developed. Head: Normocephalic atraumatic. Neck: Supple, no lymphadenopathy. No JVD. Nontender. Cardiovascular: Regular rate and rhythm. No murmurs. Respiratory: No respiratory distress. Clear to auscultation bilaterally. Abdominal: Soft, nontender, nondistended, normal bowel sounds. No guarding, rebound, or peritoneal signs. Back: Nontender. Extremities: Right elbow shows minimal erythema surrounding approximately 1 cm scab over the olecranon process. There is no fluid to suggest a septic bursitis. There is no induration or fluctuance. He has no pain with short arc movements. He is neurovascular intact distal to this.. Skin: Normal color, no rash. Neurologic: Alert and oriented ?3. Cranial nerves II through XII are intact. Normal strength and sensation. Psych: Normal affect. Test Results: Clinical Impression(s) from Imaging Studies Elbow X-Ray 03/10/20 15:01 IMPRESSION: Normal x-ray examination of the elbow. Electronically Signed: Clemencia Gann, at 15:20 EDT Tel , Service support , Emergency Department Course and Treatment: There is no fluid that is amenable to drainage. I do not feel any fluid in the bursa. Patient was given Bactrim and Keflex. He was given a [place] p.o. Treatment Plan: Patient will be discharged on Bactrim and Keflex. Given a prescription for 10 [place]. Instructed to follow with Dr. Whitehead in 2 days for wound check. Return to the emergency department for any worsening symptoms. Disposition: To home in improved and stable condition. Impression: 1. Right elbow pain. This note was generated with [employer] dictation software. It may contain incorrect words, spelling, and punctuation that were not noted in review of the chart prior to signing ED Disposition - Plan for ED Patient: Disposition: Home or Assisted Living Instructions: ED Bursitis Prescriptions: Smz/Tmp Ds [Bactrim Ds] 1 tab PO BID #14 tab Prescription Printed Mupirocin [Bactroban] 1 applic TOPICAL TID #1 tube Prescription Printed Cephalexin [Keflex] 500 mg PO Q6 #28 cap Prescription Printed Hydrocodone Bitart/Apap 5-325 [[place] 5MG-325MG] 1 tab PO Q4H PRN PRN 2 Days #10 tab PRN Reason: Pain Prescription Printed Referrals: Scotty Whitehead MD [STAFF PHYSICIAN] - 2 Days for wound check
[2020-03-10] MEDS: Cephalexin 500 MG Capsule PO (16:32)
[2020-03-10] MEDS: Smz/Tmp Ds Tablet 1 TABLET PO (16:32)
[2020-03-10] MEDS: HYDROcodone Bitartrate/Apap 5/325 Tablet PO (16:32)
== END 2020-03-10 16:39 | disposition home or self-care (01) ==
LOC: ED 15:39
PROVIDERS: Emergency Provider Emergency Medicine; PCP Student in an Organized Health Care Education/Training Program
DX: M25.521 Pain in right elbow (principal); J44.9 Chronic obstructive pulmonary disease, unspecified; M54.9 Dorsalgia, unspecified; G89.29 Other chronic pain; Z72.0 Tobacco use; Z79.52 Long term (current) use of systemic steroids; Z79.899 Other long term (current) drug therapy; I25.2 Old myocardial infarction
CPT/HCPCS: 73080; 99283

== ENCOUNTER 2020-03-16 11:55 | Emergency (ER) | payer MEDICAID, SELFPAY ==
[2020-03-16 11:56] VITALS: BP 129/85; PULSE 103; RESP 18; TEMP 36.6; O2SAT 99; BMI 28.3
--- NOTE | 2020-03-16 12:57 | ED.DCSUM_ITS ---
History of Present Illness Informant: Patient Onset: Days - 2 days Context: Gradual Onset Timing: Continuous Quality: Sores Location: Entire body Current Severity: Moderate Maximum Severity: Moderate Worsened by: Nothing Relieved by: Nothing Associated Symptoms: Denies Narrative: 54-year-old male with a history of folliculitis presents to the emergency department with concern for folliculitis. Patient sees a technical applications scientist at [facility] and uses daily clindamycin wash. He ran out of this 3 days ago. This current episode began after that. Patient has not had a fever he has not have chest pain or shortness of breath no abdominal pain no nausea vomiting or diarrhea has been eating and drinking normally denies any exposures denies any new soaps lotions detergents or contact with anyone else that feels ill. He was seen here recently for bursitis of his elbow he was placed on Bactrim that has improved. Prior similar symptoms: Yes Recent Illness/Hospitalization: No <Zachary Loredo - Last Filed: 03/16/20 13:02> <Saranya Bailey - Last Filed: 03/16/20 16:34> Chief Complaint: Wound Past Medical History Prior records reviewed: Yes Past Medical History: - - Coronary disease, hypertension, hyperlipidemia, folliculitis Surgical History: appendectomy, arthroscopy, knee, cholecystectomy, total hip arthroplasty, - - Facial reconstructive surgery. Smoking Status: Current every day smoker - Family History Maternal Family History: Reports: Cancer Paternal Family History: Reports: Cancer <Zachary Loredo - Last Filed: 03/16/20 13:02> <Saranya Bailey - Last Filed: 03/16/20 16:34> - Allergies and Home Meds Allergies/Adverse Reactions: Allergies methotrexate Adverse Reaction (Verified 03/16/20 11:56) Hives,Rash,Lesions naproxen [From Naprosyn] Adverse Reaction (Verified 03/16/20 11:56) Upset Stomach BEE VENOM Allergy (Uncoded 03/16/20 11:56) Anaphylaxis ROOT BEER Allergy (Uncoded 03/16/20 11:56) Hives Primary Care Physician: Vi Velásquez MD [Primary Care Provider] - 2 Days Review of Systems All systems negative except as indicated General: Denies: Chills, Fever, Sweats Eyes: Denies: Visual changes - bilaterally, Diplopia ENT: Denies: Rhinorrhea, Sore throat Cardiovascular: Denies: Chest pain, Palpitations Respiratory: Denies: Dyspnea, Cough, Dyspnea on exertion Gastrointestinal: Denies: Abdominal pain, Nausea, Vomiting, Diarrhea, Melena, Hematochezia Genitourinary: Denies: Dysuria, Hematuria, Frequency Musculoskeletal: Denies: Back pain, Extremity Pain Skin: Reports: Rash, Wounds. Denies: Abscess, Abrasions Neurological: Denies: Headache, Weakness, Numbness <Zachary Loredo - Last Filed: 03/16/20 13:02> Physical Exam Vital Signs/Narrative: Vital Signs Temp Pulse Resp BP Pulse Ox 03/16/20 11:56 97.8 F 103 H 18 129/85 H 99 Inital Vital Signs reviewed: Yes General: Well nourished, Well developed, No Acute Distress Head: Normocephalic, Atraumatic Eyes: Perrl, EOMI ENT: Moist mucous membranes, No rhinorrhea, - - No lesions within the mouth. No lesions on lips. No mucous membrane lesions are noted Neck: Supple, Nontender Cardiovascular: Regular rate, Regular rhythm, No murmurs Respiratory: No distress, CTA bilaterally, Chest nontender Abdomen: Soft, Nontender, Nondistended, Normal bowel sounds Back: Nontender, Normal Inspection Extremities: Nontender, No edema Skin: Normal color, Rash - Folliculitis over his dorsum of his both hands, forearms and arms, both legs and thighs, there are several lesions over his face on both cheeks but there are no petechiae no purpura no sloughing of the skin no lesions on the palms or soles. Neurological: Alert, Oriented x3, Cranial nerves II-XII grossly intact, Normal Strength, Normal Sensation Psychological: Normal affect, Normal Mood <Zachary Loredo - Last Filed: 03/16/20 13:02> Vital Signs/Narrative: Vital Signs Pulse Resp Pulse Ox 03/16/20 13:22 110 H 14 97 <Saranya Bailey - Last Filed: 03/16/20 16:34> Diagnostic/Tx/Re-eval - Medical Decision Making We will refill the patient's clindamycin wash and give him oral clindamycin as well. This is consistent with his previous bouts of folliculitis. We do not feel he requires admission or further work-up. He will follow-up with his technical applications scientist at [facility]. He was given return precautions. Supportive care discussed. He was agreeable with plan of care and all questions answered. <Zachary Loredo - Last Filed: 03/16/20 13:02> - Medical Decision Making I have personally performed a [id number] assessment of the patient and reviewed the PA note. 54-year-old male presenting with rash. He states he has history of folliculitis and this feels similar. He was previously using a clindamycin wash which he ran out of recently. Denies fever. Vital signs stable. No mucous membrane lesions. Multiple lesions upper and lower extremities consistent with folliculitis. Patient will be given antibiotics and advised to follow-up with his technical applications scientist. Advised return to ED for worsening complaints. <Saranya Bailey - Last Filed: 03/16/20 16:34> ED Disposition <Zachary Loredo - Last Filed: 03/16/20 13:02> <Saranya Bailey - Last Filed: 03/16/20 16:34> - Plan for ED Patient: Disposition: Home or Assisted Living Diagnosis: Folliculitis, COPD (chronic obstructive pulmonary disease), Essential hypertension, Nicotine dependence Instructions: ED Folliculitis Prescriptions: Clindamycin [Cleocin] 300 mg PO 4X/DAY #80 cap Transmission Status: Received by [facility] Clindamycin Phosphate [Cleocin T] 30 gm TP BID #1 tub Transmission Status: Received by [facility] Referrals: Vi Velásquez MD [Primary Care Provider] - 2 Days
[2020-03-16 13:22] VITALS: PULSE 110; RESP 14; O2SAT 97
== END 2020-03-16 13:24 | disposition home or self-care (01) ==
PROVIDERS: Emergency Provider Physician Assistant Medical; PCP Student in an Organized Health Care Education/Training Program
DX: L73.9 Follicular disorder, unspecified (principal); J44.9 Chronic obstructive pulmonary disease, unspecified; I10 Essential (primary) hypertension; E78.5 Hyperlipidemia, unspecified; F17.200 Nicotine dependence, unspecified, uncomplicated; Z79.52 Long term (current) use of systemic steroids; Z79.899 Other long term (current) drug therapy
CPT/HCPCS: 99282

== ENCOUNTER 2020-06-11 12:29 | Emergency (ER) | payer MEDICAID, SELFPAY ==
[2020-06-11] VITALS (7 sets, daily range): BP systolic 139–163; BP diastolic 88–121; PULSE 90–106; RESP 14–22; TEMP 36.6; O2SAT 96–100; BMI 29.5
--- NOTE | 2020-06-11 13:03 | ED.DCSUM_ITS ---
- ER Visit Summary Date of Service: 06/11/20 Chief Complaint: [Fall and injury to left hip] History of Present Illness: The patient is a 55 M [presents to the emergency department after sustaining a fall last evening. Patient states that he was walking and try to pivot on his left hip when he felt a pop and he went down. Patient unable to bear weight afterwards. Family has helped him in the bed and he has been just trying to sit on the edge of the bed at times. Patient called the squad this morning to bring him in to get evaluated. Patient has had prior left hip replacement in 2013. Patient has never had a hip dislocation. He rates his pain is severe. He denies any other injuries. Patient states that he has had some intermittent back pain and some sciatica issues which have been chronic. Patient has history of coronary artery disease, COPD, CHF, hypertension, non-Hodgkin's lymphoma.] Physical Examination: [HEENT-PERRLA, EOMI. Cranial nerves II through XII grossly intact. TMs clear. Mucous membranes moist. No adenopathy. No external evidence of trauma to his head. No C-spine tenderness on palpation. Cardiovascular-regular rate and rhythm without murmur or ectopy Lungs-clear to auscultation, chest wall stable without crepitus or subcu emphysema Abdomen-normoactive bowel sounds, soft, nontender, no rebound or rigidity, no peritoneal signs. Extremities-intact ?4, normal range of motion, normal pulses. Left hip-patient has shortening of the left lower extremity with internal rotation. Patient has pain with any range of motion. He said some mild fullness over the lateral aspect of the left hip. He is neurovascular intact distally.] Test Results: [X-rays of the left hip obtained 2 views which showed a dislocation of the prosthetic hip without any evidence of periprosthetic fractures noted as interpreted by myself and radiology in agreement.] Emergency Department Course and Treatment: [The line established. Patient was medicated morphine and Zofran. Patient was consented for procedural sedation with propofol. Patient was given 140 mg of propofol with good sedation. I attempted to reduce the hip with traction and external rotation unsuccessfully. Dr. Atul Smiley emergency physician was assisting and then also attempted to reduce the hip and he was able to successfully reduce the hip. Patient was placed in a knee immobilizer. Post reduction x-rays obtained showed good reduction as interpreted by myself. Official radiology interpretation pending..] Treatment Plan: [Patient to follow-up with his orthopedic surgeon within the next 3 to 5 days. Patient tells me he also needs a knee replacement on his left knee. His surgeon is from the [facility].] Disposition: [Discharged home in stable condition] Impression: [Left hip dislocation-reduced] This note was generated with [employer] dictation software. It may contain incorrect words, spelling, and punctuation that were not noted in review of the chart prior to signing ED Disposition - Plan for ED Patient: Referrals: Vi Velásquez MD [Primary Care Provider] -
--- NOTE | 2020-06-11 13:05 | RAD_ITS ---
STUDY: X-RAY - PELVIS AND LEFT HIP REASON FOR EXAM: Male, 55 years old. PAIN TECHNIQUE: 3 views of the pelvis and hip. COMPARISON: Comparison is made with prior examination 01/14/2018. FINDINGS: There is a non-specific bowel gas pattern. Normal visualized soft tissue structures. There is evidence of a superior and posterior dislocation of the prosthetic left hip joint. Moderate degree of joint space narrowing of the right hip joint. RAD/HIP, UNI W/ Pelvis 2-3 Views IMPRESSION: Superior and posterior dislocation of the prosthetic left hip joint. Electronically Signed: Davis Honeycutt, at 14:44 EST , Service support ,
[2020-06-11] MEDS: Ondansetron 4 MG/2 ML Vial IV (13:15)
[2020-06-11] MEDS: Morphine 4 MG/ML Syringe IV ×3 (13:15→15:54)
--- NOTE | 2020-06-11 13:42 | ED.RN ---
pt medicated at 1315. iv not running well. partial hub detacjment. this nurse reconnected and attempted to reposition. unable to get flow. fluids dc'd. new line started in left hand.
[2020-06-11] MEDS: 0.9% Normal Saline 1,000 ML 150 ML IV (13:47)
--- NOTE | 2020-06-11 14:50 | RAD_ITS ---
STUDY: X-RAY - PELVIS AND RIGHT HIP REASON FOR EXAM: Male, 55 years old. RIGHT POST REDUCTION TECHNIQUE: 2 views of the pelvis and hip. COMPARISON: Comparison is made with prior examination done earlier today. FINDINGS: Satisfactory reduction of the left prosthetic hip joint. RAD/Hip Min 2 Views (Portable) IMPRESSION: Satisfactory reduction of the left prosthetic hip joint. Electronically Signed: Davis Honeycutt, at 15:02 EST , Service support ,
[2020-06-11] MEDS: Propofol 200 MG/20 ML Vial IV BOLUS (14:54)
--- NOTE | 2020-06-11 15:03 | DCINST.ED_ITS ---
ED Disposition - Plan for ED Patient: Instructions: ED Mechanical Fall, ED Hip Replace Dislocation Reduc Prescriptions: Hydrocodone Bitart/Apap 5-325 [[place] 5MG-325MG] 1 tab PO Q4H PRN PRN 2 Days #10 tab PRN Reason: Pain Prescription Printed Referrals: Vi Velásquez MD [Primary Care Provider] - Additional Instructions: see your orthopedic surgeon in 3-5 days
--- NOTE | 2020-06-11 16:41 | ED.RN ---
BILATERAL IV'S DC'ED, CATHETERS INTACT, SMALL GAUZE DRESSINGS PLACED.
== END 2020-06-11 17:51 | disposition home or self-care (01) ==
LOC: ED 14:08
PROVIDERS: Emergency Provider Emergency Medicine; PCP Student in an Organized Health Care Education/Training Program
DX: T84.021A Dislocation of internal left hip prosthesis, initial encounter (principal); W18.30XA Fall on same level, unspecified, initial encounter; Y93.01 Activity, walking, marching and hiking; Y92.9 Unspecified place or not applicable; Y99.9 Unspecified external cause status; I11.0 Hypertensive heart disease with heart failure; I50.9 Heart failure, unspecified; I25.10 Atherosclerotic heart disease of native coronary artery without angina pectoris; J44.9 Chronic obstructive pulmonary disease, unspecified; Z72.0 Tobacco use; I25.2 Old myocardial infarction; Z85.72 Personal history of non-Hodgkin lymphomas; Z96.642 Presence of left artificial hip joint
CPT/HCPCS: 27250; 73502; 96361; 96374; 96375; 96376; 99152; 99285; J7030; A4216; J2405

== ENCOUNTER 2020-06-15 07:50 | Emergency (ER) | payer MEDICAID, SELFPAY ==
[2020-06-11 12:30] VITALS: BMI 29.5
[2020-06-15] VITALS (20 sets, daily range): BP systolic 116–172; BP diastolic 79–111; PULSE 62–104; RESP 13–24; TEMP 36.2; O2SAT 94–100; BMI 26.9
--- NOTE | 2020-06-15 08:05 | RAD_ITS ---
STUDY: X-RAY - PELVIS AND LEFT HIP REASON FOR EXAM: Male, 55 years old. hip pain/dislocation TECHNIQUE: 3 views of the pelvis and hip. COMPARISON: 06/11/2020 FINDINGS: There is a non-specific bowel gas pattern. Normal visualized soft tissue structures. Normal bilateral iliac wings, sacroiliac joints and visualized sacrum. Normal bilateral superior and inferior pubic rami. Normal pubic symphysis. Normal bilateral ischial tuberosities. Status post left total hip arthroplasty. The prosthesis is dislocated.. RAD/Hip Min 2 Views (Portable) IMPRESSION: Dislocation of the left hip arthroplasty prosthesis. Electronically Signed: Erick Boles MD at 9:23 EST Tel , Service support ,
[2020-06-15 08:21] LABS: Absolute Lymphocyte Count 3.01 X10^3/uL (0.83-4.51); Absolute Neutrophil Count 19.6 X10^3/uL (2.0-7.7); Basophil# 0.02 X10^3/uL; Basophil% 0.1 % (0-1); Eosinophil# 0.02 X10^3/uL; Eosinophils% 0.1 % (0-5); Hematocrit 38.1 % (40-54); Hemoglobin 11.8 g/dL (13.0-16.5); Lymphocyte # 3.01 X10^3/ul (4.0); Lymphocyte % 12.4 % (19-41); Mean Corpuscular Hgb 28.6 pg (27.0-32.0); Mean Corpuscular Volume 92.3 fL (80-94); Mean Platelet Vol. 9.1 fl (6.2-12.0); Monocyte% 5.8 % (0-10); NRBC Flagged by Analyzer 0 % (0-5); Neutrophil % 81.1 % (47-70); POSITIVE COUNT YES; Platelet Count 334 K/mm3 (150-450); RBC Distribution Width CV 14.8 % (11.6-14.6); RBC Distribution Width SD 49.9 fl (35.1-43.9); Red Blood Count 4.13 M/mm3 (4.6-6.2); White Blood Count 24.2 K/mm3 (4.4-11.0)
[2020-06-15 08:22] LABS: Differential Indicated SCAN CRITERIA MET
[2020-06-15 08:30] LABS: Anion Gap 4 (5-15); BUN 20 mg/dL (7-18); BUN/Creat Ratio 19.2 RATIO (10-20); Calcium,Total 8.6 mg/dL (8.5-10.1); Chloride 110 mmol/L (98-107); Creatinine, Serum 1.04 mg/dL (0.70-1.30); EST Glomerular Filtration Rate 79 mL/min (>60); Est Glom Filt Rate - Afr Amer 96 mL/min (>60); Estimated Creatinine Clearance 74.13 ml/min; Glucose 110 mg/dL (74-106); Potassium 4.1 mmol/L (3.5-5.1); Sodium Level 141 mmol/L (136-145)
[2020-06-15] MEDS: Ondansetron 4 MG/2 ML Vial IV (08:34)
[2020-06-15] MEDS: HYDROmorphone 1 MG/ML Syringe IV (08:34)
[2020-06-15 08:43] LABS: Platelet Estimate ADEQUATE (ADEQ)
[2020-06-15 08:44] LABS: Platelet Morphology CLUMPED
[2020-06-15] MEDS: fentaNYL 100 MCG/2 ML Ampul IV (09:39)
[2020-06-15] MEDS: Midazolam 2 MG/2 ML Syringe IV (09:42)
[2020-06-15] MEDS: Propofol 200 MG/20 ML Vial 80 MG IV BOLUS ×2 (09:42→10:29)
--- NOTE | 2020-06-15 10:02 | ED.DCSUM_ITS ---
History of Present Illness Chief Complaint: Lower Extremity Injury Informant: Patient Onset: Today Maximum Severity: Mild Narrative: Patient presents with left hip pain, he has history of left hip total replacement at [facility] in 2015 indicates yesterday he turned awkwardly suffered left hip dislocation he was seen in the emergency department and had the dislocated hip reduced. He was wearing his knee immobilizer he reports he turned and read dislocated his hip as he has severe hip pain paramedics were called he was brought in, he has not fallen or injured his body. He has a distant history for IV drug abuse otherwise he states his health has been stable hep C no coronavirus exposures no fever no cough his only complaint is left hip pain that began suddenly today Past Medical History - Allergies and Home Meds Allergies/Adverse Reactions: Allergies methotrexate Adverse Reaction (Verified 06/15/20 07:53) Hives,Rash,Lesions naproxen [From Naprosyn] Adverse Reaction (Verified 06/15/20 07:53) Upset Stomach BEE VENOM Allergy (Uncoded 06/15/20 07:53) Anaphylaxis ROOT BEER Allergy (Uncoded 06/15/20 07:53) Hives Primary Care Physician: Vi Velásquez MD [Primary Care Provider] - Past Medical History: - - Left hip replacement cholecystectomy hep C history of opioid drug abuse Surgical History: appendectomy, arthroscopy, knee, cholecystectomy, total hip arthroplasty, - - Facial reconstructive surgery. Smoking Status: Current every day smoker - Family History Maternal Family History: Reports: Cancer Paternal Family History: Reports: Cancer Review of Systems General: Denies: Chills, Fever, Sweats Eyes: Denies: Visual changes - bilaterally, Diplopia ENT: Denies: Rhinorrhea, Sore throat Cardiovascular: Denies: Chest pain, Palpitations Respiratory: Denies: Dyspnea, Cough, Dyspnea on exertion Gastrointestinal: Denies: Abdominal pain, Nausea, Vomiting, Diarrhea, Melena, Hematochezia Genitourinary: Denies: Dysuria, Hematuria, Frequency Musculoskeletal: Reports: Extremity Pain. Denies: Back pain Skin: Denies: Rash, Wounds Neurological: Denies: Headache, Weakness, Numbness Physical Exam Vital Signs/Narrative: Vital Signs Temp Pulse Pulse Pulse Resp Resp Resp 06/15/20 09:55 72 18 06/15/20 09:50 79 18 01/10/21 09:42 86 80 73 14 14 20 H 06/15/20 09:29 89 14 06/15/20 09:16 89 14 06/15/20 07:50 97.1 F L 104 H 24 H BP BP BP Pulse Ox 06/15/20 09:55 140/95 H 100 06/15/20 09:50 172/106 H 100 06/15/20 09:42 144/99 H 144/99 H 151/111 H 100 06/15/20 09:29 142/92 H 99 06/15/20 09:16 142/92 H 99 06/15/20 07:50 152/102 H 98 General: Well nourished, Well developed, No Acute Distress Head: Normocephalic, Atraumatic Eyes: Perrl, EOMI ENT: Moist mucous membranes, No rhinorrhea Neck: Supple, Nontender Cardiovascular: Regular rate, Regular rhythm, No murmurs Respiratory: No distress, CTA bilaterally, Chest nontender Abdomen: Soft, Nontender, Nondistended, Normal bowel sounds Back: Nontender, Normal Inspection Extremities: No edema, - - The left lower extremity slightly shortened and appears to be internally rotated he has moderate to severe left hip pain the rest of the exam is unremarkable his foot is well-perfused he indicates normal sensation Skin: Normal color, No rash Neurological: Alert, Oriented x3, Cranial nerves II-XII grossly intact, Normal Strength, Normal Sensation Psychological: Normal affect, Normal Mood Diagnostic/Tx/Re-eval - Medical Decision Making X-ray to my review multiple views does show posterior dislocation left hip prosthesis no fracture, see that report radiology who concur Discussed with the patient he understands risk benefit of reduction he has no contraindications he last ate about 4 hours ago he denies any cardiovascular issues, he underwent conscious sedation to call high flow oxygen he was medicate d with incremental doses of Versed fentanyl and propofol once this took effect standard reduction methods were attempted, initial attempt was unsuccessful, action was then attempted again and was successful using standard technique again he tolerated the procedure throughout with normal vital signs no complications Initial 1 view postreduction x-ray showed no reduction per my review, to my review second postreduction x-ray 1 view showed appropriate reduction radiology generally agreed see those reports ED screening labs generally unremarkable the patient has a white count of 24,000 with a chronically elevated white count At this time apparently he has notified staff that he actually took off the knee immobilizer to have sex and that is when the dislocation occurred today we have been observing the patient Tolerated these procedures well vital signs remained all stable throughout continues to be stable at this time Knee immobilizer is applied he is referred to his orthopedic surgeons pain management from yesterday and he will return for change in symptoms Home stable Final impression left hip dislocation, conscious sedation, reduction left hip dislocation by ED physician ED Disposition - Plan for ED Patient: Diagnosis: Left hip dislocation status post reducti Instructions: ED Hip Replace Dislocation Reduc Referrals: Vi Velásquez MD [Primary Care Provider] - Additional Instructions: You must keep the brace on your knee, follow-up with your orthopedic surgeons to be evaluated for hip dislocation
--- NOTE | 2020-06-15 10:06 | RAD_ITS ---
STUDY: X-RAY - PELVIS AND LEFT HIP REASON FOR EXAM: Male, 55 years old. post reduction #1 TECHNIQUE: 1 views of the pelvis and hip. COMPARISON: 06/15/2019 06/13/1947 FINDINGS: There is a non-specific bowel gas pattern. Normal visualized soft tissue structures. Normal bilateral iliac wings, sacroiliac joints and visualized sacrum. Normal bilateral superior and inferior pubic rami. Normal pubic symphysis. Normal bilateral ischial tuberosities. Status post left total hip arthroplasty. Continued dislocation of the prosthesis.. RAD/Hip 1 view with Pelvis IMPRESSION: Continued dislocation of the left hip arthroplasty prosthesis. Electronically Signed: Ercik Boles MD at 10:23 EST Tel , Service support ,
--- NOTE | 2020-06-15 10:34 | RAD_ITS ---
STUDY: X-RAY - PELVIS AND LEFT HIP REASON FOR EXAM: Male, 55 years old. post reduction #2 TECHNIQUE: 1 views of the pelvis and hip. COMPARISON: 06/15/2020 at 1008 FINDINGS: There is a non-specific bowel gas pattern. Normal visualized soft tissue structures. Normal bilateral iliac wings, sacroiliac joints and visualized sacrum. Normal bilateral superior and inferior pubic rami. Normal pubic symphysis. Normal bilateral ischial tuberosities. Status post left total hip arthroplasty. Interval reduction of the prosthesis.. RAD/Hip 1 view with Pelvis IMPRESSION: Interval reduction of the left hip prosthesis. Electronically Signed: Erick Boles MD at 11:20 EST Tel , Service support ,
== END 2020-06-15 14:28 | disposition home or self-care (01) ==
PROVIDERS: Emergency Provider Emergency Medicine; PCP Student in an Organized Health Care Education/Training Program
DX: S73.005A Unspecified dislocation of left hip, initial encounter (principal); X58.XXXA Exposure to other specified factors, initial encounter; Y93.9 Activity, unspecified; Y92.9 Unspecified place or not applicable; Y99.9 Unspecified external cause status; B19.20 Unspecified viral hepatitis C without hepatic coma; F17.200 Nicotine dependence, unspecified, uncomplicated; Z79.899 Other long term (current) drug therapy; Z86.19 Personal history of other infectious and parasitic diseases; Z96.642 Presence of left artificial hip joint; Z90.49 Acquired absence of other specified parts of digestive tract
CPT/HCPCS: 27250; 73501; 73502; 80048; 85025; 96361; 96374; 96375; 99285; J7030; A4216; J2405

== ENCOUNTER 2020-06-25 21:23 | Inpatient (IN) | payer MEDICAID, SELFPAY ==
[2020-06-15 07:50] VITALS: BMI 26.9
[2020-06-25 21:25] VITALS: BP 144/117; PULSE 144; RESP 26; TEMP 36.8; O2SAT 91; BMI 25.9
--- NOTE | 2020-06-25 21:28 | ED.RN ---
CALLED FOR EKG PER RN REQUEST, PULLED OLD EKGS FOR
--- NOTE | 2020-06-25 21:39 | EKG12_ITS ---
Test Reason : UNRESPONSIVE Blood Pressure : / mmHG Vent. Rate : 142 BPM Atrial Rate : 142 BPM P-R Int : 124 ms QRS Dur : 068 ms QT Int : 338 ms P-R-T Axes : 035 073 066 degrees QTc Int : 519 ms Sinus tachycardia Possible Left atrial enlargement Nonspecific ST and T wave abnormality Abnormal ECG Confirmed by LINWOOD MOHAN, GALLITO ([id number]), production editor DORIS KAYE ([id number]) on 06/26/2020 2:17:32 PM Referred By: GT/BRANDEE Confirmed By:GALLITO PALUMBO MD
--- NOTE | 2020-06-25 21:40 | CT_ITS ---
STUDY: CT BRAIN WITHOUT CONTRAST REASON FOR EXAM: Male, 55 years old. UNRESPONSIVE, HEROIN AND METH USE, FEVER 104, TACHYCARDIC RADIATION DOSAGE (If Supplied By Facility): CTDIvol = ( 44.99 ) mGy, DLP = ( 796.11 ) mGycm TECHNIQUE: Transaxial CT imaging of the brain was performed without administration of intravenous contrast material. Individualized dose optimization techniques were used for this CT. COMPARISON: No relevant priors. FINDINGS: Normal soft tissue structures. Normal calvarium. Normal size ventricles and extra-axial spaces for the patient''s age. Normal white matter tracts of the cerebral hemispheres. Normal basal ganglia and thalami. Normal brainstem. Normal cerebellum. There is no intracranial hemorrhage. There are no findings of an acute ischemic infarction. Normal visualized paranasal sinuses. CT/Brain/Head without Contrast IMPRESSION: Normal unenhanced CT scan of the brain. Electronically Signed: Mark Bosch DO at 22:04 EST Tel , Service support ,
--- NOTE | 2020-06-25 21:57 | RAD_ITS ---
STUDY: X-RAY CHEST REASON FOR EXAM: Male, 55 years old. and quot;UNRESPONSIVE and quot; IN BED FOR POSSIBLY 3 DAYS, HEROIN AND METH USE 3 DAYS AGO. FEVER. TECHNIQUE: Single AP portable view of the chest. COMPARISON: None. FINDINGS: The lungs are clear and expanded. There is no demonstrated pleural abnormality. Normal size heart. Normal mediastinum and rima. Normal visualized pulmonary arteries. Normal visualized aortic arch and descending thoracic aorta. Normal visualized thoracic spine. Normal visualized ribs, clavicles, and shoulders. There is no demonstrated abnormality of the visualized soft tissue structures of the upper abdomen. RAD/Chest 1 View (Portable) IMPRESSION: Normal x-ray examination of the chest. Electronically Signed: Mark Bosch DO at 22:18 EST Tel , Service support ,
[2020-06-25 21:59] LABS: Absolute Lymphocyte Count 0.39 X10^3/uL (0.83-4.51); Absolute Neutrophil Count 16.5 X10^3/uL (2.0-7.7); Basophil# 0.08 X10^3/uL; Basophil% 0.4 % (0-1); Eosinophil# 0.14 X10^3/uL; Eosinophils% 0.8 % (0-5); Hematocrit 44.7 % (40-54); Hemoglobin 14.3 g/dL (13.0-16.5); Lymphocyte # 0.39 X10^3/ul (4.0); Lymphocyte % 2.2 % (19-41); Mean Corpuscular Hgb 28.9 pg (27.0-32.0); Mean Corpuscular Volume 90.5 fL (80-94); Mean Platelet Vol. 9.9 fl (6.2-12.0); Monocyte# 0.51 X10^3/uL; Monocyte% 2.9 % (0-10); NRBC Flagged by Analyzer 0.2 % (0-5); Neutrophil # 16.47 X10^3/uL (2.7-7.7); Neutrophil % 92.6 % (47-70); POSITIVE DIFFERENTIAL YES; POSITIVE MORPHOLOGY YES; Platelet Count 237 K/mm3 (150-450); RBC Distribution Width CV 15.1 % (11.6-14.6); RBC Distribution Width SD 49.9 fl (35.1-43.9); Red Blood Count 4.94 M/mm3 (4.6-6.2); White Blood Count 17.8 K/mm3 (4.4-11.0)
[2020-06-25 21:59] LABS: Bacteria 0 SEEN /hpf (None Seen); Mucous, Urine 0 SEEN /hpf (<or=2+); Red Blood Cells-Urine 0 SEEN /hpf (0-5); Squamous Epithelial Cells - UA 0 SEEN /hpf (0-5)
[2020-06-25 22:02] LABS: Color, Urine Amber (Yellow); Glucose, Dipstick Normal (Normal); Ketone-Dipstick 5 mg/dl (Negative); Leukocyte Esterase-Dipstick 25 /ul (Negative); Nitrite-Dipstick Negative (Negative); Occult Blood-Urine 10 /ul (Negative); Protein-Dipstick 30 mg/dl (Negative); Specific Gravity, Urine 1.005 (1.002-1.030); Urine Clarity Clear (Clear); Urine Urobilinogen 4 mg/dl (Normal)
[2020-06-25 22:04] LABS: Urine Bilirubin Dipstick 1 mg/dL (Negative)
[2020-06-25 22:07] LABS: Differential Indicated SCAN CRITERIA MET; International Normalized Ratio 1.3; Prothrombin Time (Protime)PT. 15.3 SECONDS (11.7-14.9)
[2020-06-25 22:07] LABS: White Blood Cells 0-5 SEEN /hpf (0-5)
[2020-06-25 22:08] LABS: Partial Thromboplast Time 36.6 Seconds (24.1-36.2)
[2020-06-25 22:16] VITALS: BP 123/92; PULSE 139; RESP 34; TEMP 40.3; O2SAT 94
[2020-06-25 22:21] LABS: Bedside Glucose 118 mg/dL (70-110)
[2020-06-25 22:26] LABS: ALB/GLOB Ratio 0.5 RATIO (0.9-2.4); AST(SGOT) 129 U/L (15-37); Alanine Aminotransfer ALT/SGPT 70 U/L (16-61); Albumin, Serum 2.3 g/dL (3.2-5.0); Alkaline Phosphatase 233 U/L (45-117); Anion Gap 12 (5-15); BUN 54 mg/dL (7-18); Calcium,Total 8.5 mg/dL (8.5-10.1); Chloride 109 mmol/L (98-107); Creatinine, Serum 4.16 mg/dL (0.70-1.30); EST Glomerular Filtration Rate 16 mL/min (>60); Est Glom Filt Rate - Afr Amer 19 mL/min (>60); Estimated Creatinine Clearance 18.53 ml/min; Globulin 4.6 g/dL (2.2-4.2); Glucose 106 mg/dL (74-106); Potassium 4.4 mmol/L (3.5-5.1); Protein, Total 6.9 g/dL (6.4-8.2); Sodium Level 143 mmol/L (136-145)
[2020-06-25] MEDS: 0.9% Normal Saline 1,000 ML 1000 ML IV (22:27)
[2020-06-25 22:28] LABS: Differential Comment SCANNED
[2020-06-25 22:29] LABS: CPK Total, Creatine Kinase 2298 U/L (39-308)
[2020-06-25 22:30] LABS: Lactic Acid 3.5 mmol/L (0.4-1.9)
[2020-06-25 23:02] LABS: Amphetamine Urine VISTA POSITIVE (<1000 ng/mL); Barbiturate Urine VISTA NEGATIVE (< 200 ng/mL); Benzodiazepine Urine VISTA NEGATIVE (< 200 ng/mL); Cocaine Urine VISTA NEGATIVE (< 300 ng/mL); Ecstacy Urine VISTA NEGATIVE (< 500 ng/mL); Methadone Urine VISTA NEGATIVE (< 300 ng/mL); PCP Urine VISTA NEGATIVE (< 25 ng/mL); THC Urine VISTA NEGATIVE (< 50 ng/mL); Vista UDS pH Range 7
[2020-06-25] MEDS: 0.9% Normal Saline 1,000 ML 999 ML IV (23:04)
[2020-06-25] MEDS: Acetaminophen 650 MG Suppository RECTAL (23:07)
[2020-06-25 23:10] VITALS: BP 128/89; PULSE 123; RESP 40; TEMP 39.7
--- NOTE | 2020-06-25 23:12 | HP.PCM_ITS ---
Problem List (1) Severe sepsis Status: Acute (2) Rhabdomyolysis Status: Acute (3) Cellulitis Status: Acute (4) MALINDA (acute kidney injury) Status: Acute (5) COPD (chronic obstructive pulmonary disease) Status: Chronic (6) Nicotine dependence Status: Chronic Qualifiers: Nicotine product type: cigarettes Substance use status: uncomplicated Qualified Code(s): F17.210 - Nicotine dependence, cigarettes, uncomplicated (7) Acute ST elevation myocardial infarction (STEMI) of inferior wall Status: Resolved (8) Takotsubo cardiomyopathy Status: Resolved (9) Acute systolic CHF (congestive heart failure) Status: Chronic (10) Essential hypertension Status: Chronic (11) Non-Hodgkin lymphoma in remission Status: Resolved History of Present Illness Date of Admission: 06/25/20 Chief Complaint: unresponsive The patient is a 55 year old M with a significant history of COPD and Takotsubo cardiomyopathy who presents to the emergency department with unresponsiveness. Reportedly patient has been unresponsive for 3 days. However there is another story that patient was seen taking a shower day before presentation. History was taken from emergency department doctor who took history from EMS. Also history was taken from patient's son Neil Acosta ([phone]). Per patient's son Neil Acosta, he (Neil Acosta) received a call that patient has been unresponsive for 3 days and per his son's story no one was allowed to call the ambulance. His son upon hearing this went to the patient's apartment with his(son) sister. Per son, upon his arrival although the patient was breathing patient did not respond to physical stimulation or voice. Reportedly 3 days ago he used methamphetamine and heroin. Emergency department doctor reported that patient urine was tea colored. Past Medical History Past Medical History (Chronic Problems): Chronic Problems (Last Reviewed 06/26/20 @ 00:[address] Renato Hutson MD) COPD (chronic obstructive pulmonary disease) (Chronic) Nicotine dependence (Chronic) Acute systolic CHF (congestive heart failure) (Chronic) Essential hypertension (Chronic) Medical History: Medical History (Last Reviewed 06/26/20 @ 02:[address] Renato Hutson MD) Acute hypoxemic respiratory failure (Inactive) J96.01 COPD (chronic obstructive pulmonary disease) (Chronic) J44.9 Nicotine dependence (Chronic) F17.[address] elevation myocardial infarction (STEMI) of inferior wall (Resolved) Onset Date: 06/12/19 I21.19 Takotsubo cardiomyopathy (Resolved) I51.81 Acute systolic CHF (congestive heart failure) (Chronic) I50.21 Essential hypertension (Chronic) I10 Non-Hodgkin lymphoma in remission (Resolved) C85.90 Avascular necrosis of left femoral head M87.052 Bipolar disorder F31.9 Hepatitis C, chronic B18.2 Hypothyroidism E03.9 Intravenous drug abuse F19.10 NH lymphoma C85.90 Panic anxiety syndrome F41.0 Rheumatoid arthritis M06.9 Cholangitis K83.09 Dyspnea on minimal exertion (Resolved) R06.09 Leukocytosis D72.829 Respiratory infection J98.8 Severe sepsis Onset Date: 06/12/19 A41.9, R65.20 Sinus tachycardia by electrocardiogram (Resolved) R00.0 Syncope R55 Symptomatic cholelithiasis K80.20 Allergies methotrexate Adverse Reaction (Verified 06/25/20 21:31) Hives,Rash,Lesions naproxen [From Naprosyn] Adverse Reaction (Verified 06/25/20 21:31) Upset Stomach BEE VENOM Allergy (Uncoded 06/25/20 21:31) Anaphylaxis ROOT BEER Allergy (Uncoded 06/25/20 21:31) Hives Home Medications: Ambulatory Orders Medication Instructions Recorded Levothyroxine [Synthroid] 112 mcg PO DAILY 07/10/16 Albuterol Sulfate [Proventil Hfa] 6.7 gm IH Q4H PRN 10/21/16 Gabapentin [Neurontin] 900 mg PO TIDCM 10/21/16 cyanocobalamin (vitamin B-12) 1,000 syr IM QMONTH 30 Days #1 ml 03/21/18 1,000 mcg/mL injection solution Fluticasone/Vilanterol [Breo 1 ea INHALATION DAILY 02/14/19 Ellipta 200-25 Mcg INH] Montelukast [Singulair] 10 mg PO QHS 02/14/19 Epi Pen (for allergic rxn) 0.3 mg IM X1 06/13/19 lithium carbonate 300 mg 300 mg PO DAILY PRN tab 01/10/20 tablet,extended release prednisone 10 mg tablet 10 mg PO DAILY 01/10/20 Mupirocin [Bactroban] 1 applic TOPICAL TID #1 tube 03/10/20 Surgical History: Surgical History (Last Reviewed 06/26/20 @ 02:[address] Renato Hutson MD) H/O arthroscopic knee surgery Z98.890 H/O total hip arthroplasty Z96.649 History of appendectomy Z90.49 History of cholecystectomy Z90.49 History of left heart catheterization Onset Date: 06/12/19 Z98.890 04/07/2018 facial reconstructive surgery Surgical History: appendectomy, arthroscopy, knee, cholecystectomy, total hip arthroplasty, - - Facial reconstructive surgery. Psychiatric History: Bipolar Smoking Status: Current every day smoker - *Family History Maternal History Items: Cancer Paternal History Items: Cancer Review of Systems Unable to obtain accurate/complete ROS d/t: Obtunded. Review of system obtained from son is as in HPI VTE Information - Inpt Only VTE Present on Admission: No VTE Mechan Device Prophylaxis: None VTE Pharm Prophylaxis ordered?: Yes Patient Problems: Active and Suspected Problems (Last Reviewed 06/26/20 @ 00:[address] Renato Hutson MD) Severe sepsis (Acute) Rhabdomyolysis (Acute) Cellulitis (Acute) MALINDA (acute kidney injury) (Acute) - Physical Exam Vitals/I&O's: Vital Signs Temp Pulse Resp BP Pulse Ox 103.4 F H 123 H 40 H 128/89 H 94 06/25/20 23:10 06/25/20 23:10 06/25/20 23:10 06/25/20 23:10 06/25/20 22:16 Oxygen Flow Rate (L/min) 2 Oxygen Delivery Method Nasal Cannula Weight: 73 kg Body Mass Index (BMI) 25.9 Finger Stick Blood Glucose 118 General: - - Obtunded HEENT: Atraumatic, Normocephalic Neck: Supple, No JVD, Trachea Midline Lungs: Clear to auscultation, Normal air movement, Tachypneic Cardiovascular: Normal S1, Normal S2, No murmurs, Tachycardic Abdomen: Bowel Sounds Present, Soft, Non Tender Extremities: No edema, Capillary Refill Less than 3 Seconds Skin: Ulcer/ Wound, - - Diffuse ulcers with surrounding erythema. Mildly pinkish area of medial side of right knee; mildly increasing wound of of medial right knee. Musculoskeletal: No Muscle Wasting Neurological: - - Obtunded Psych/Mental Status: - - Obtunded Microbiology Past 72 Hours 06/25/20 22:03 Mucosa - Nasopharyngeal SARS-CoV-2 Antigen (Rapid) - Final Laboratory Results 06/25/20 21:34: WBC 17.8 H, RBC 4.94, Hgb 14.3, Hct 44.7, MCV 90.5, MCH 28.9, MCHC 32.0, RDW Std Deviation 49.9 H, RDW Coeff of Re 15.1 H, Plt Count 237, MPV 9.9, Immature Gran % (Auto) 1.100 H, Neut % (Auto) 92.6 H, Lymph % (Auto) 2.2 L , Pepin % (Auto) 2.9, Eos % (Auto) 0.8, Baso % (Auto) 0.4, Absolute Neuts (auto) 16.5 H, Absolute Lymphs (auto) 0.39 L, Nucleated RBC % 0.2, Differential Comment SCANNED 06/25/20 21:34: PT 15.3 H, INR 1.3, APTT 36.6 H 06/25/20 21:34: Sodium 143, Potassium 4.4, Chloride 109 H, Carbon Dioxide 22.0, Anion Gap 12, BUN 54 H, Creatinine 4.16 H, Estim Creat Clear Calc 18.53, Est GFR (MDRD) Af Amer 19 L, Est GFR (MDRD) Non-Af 16 L, BUN/Creatinine Ratio 13.0, Glucose 106, Calcium 8.5, Total Bilirubin 1.90 H, AST 129 H, ALT 70 H, Alkaline Phosphatase 233 H, Troponin I 0.207 H, Total Protein 6.9, Albumin 2.3 L, Globulin 4.6 H, Albumin/Globulin Ratio 0.5 L 06/25/20 21:34: Lactic Acid 3.5 H* 06/25/20 21:34: Total Creatine Kinase 2298 H 06/25/20 21:50: Urine Color Haylee, Urine Clarity Clear, Urine pH 7.0, Ur Specific [place] 1.005, Urine Protein 30 H, Urine Glucose (UA) Normal, Urine Ketones 5 H, Urine Occult Blood 10 H, Urine Nitrite Negative, Urine Bilirubin 1 H, Urine Urobilinogen 4 H, Ur Leukocyte Esterase 25 H, Urine RBC 0 SEEN, Urine WBC 0-5 SEEN, Ur Squamous Epith Cells 0 SEEN, Urine Bacteria 0 SEEN, Urine Mucus 0 SEEN 06/25/20 21:50: Urine Opiates Screen POSITIVE H, Urine Methadone Screen NEGATIVE, Ur Barbiturates Screen NEGATIVE, Ur Phencyclidine Scrn NEGATIVE, Ur Amphetamines Screen POSITIVE H, U Methamphetamin-MDMA NEGATIVE, U Benzodia zepines Scrn NEGATIVE, Urine Cocaine Screen NEGATIVE, U Cannabinoids Screen NEGATIVE, Ur Drug Screen Comment 06/25/20 22:13: POC Glucose 118 H Current Medications Sodium Chloride () 1,000 mls @ 999 mls/hr IV .Q1H1M ONE Stop: 06/25/20 23:45 Last Admin: 06/25/20 23:04 Dose: 999 mls/hr Documented by: Piperacillin Sod/Tazobactam (Sod 4.5 gm/ Sodium Chloride) 100 mls @ 200 mls/hr IV X1 ONE Stop: 06/25/20 23:14 Assessment/Plan All Active Problems (Last Reviewed 06/26/20 @ 00:[address] Renato Hutson MD) Severe sepsis (Acute) Rhabdomyolysis (Acute) Cellulitis (Acute) MALINDA (acute kidney injury) (Acute) Acute ST elevation myocardial infarction (STEMI) of inferior wall (Resolved 06/12/19) Takotsubo cardiomyopathy (Resolved) Non-Hodgkin lymphoma in remission (Resolved) Cocaine abuse (Resolved) Dyspnea on minimal exertion (Resolved) Encounter for observation for suspected nervous system disorder (Resolved) Intractable abdominal pain (Resolved) Lower respiratory infection (Resolved) Reaction, drug, adverse (Resolved) Sinus tachycardia by electrocardiogram (Resolved) The patient is a 55 year old M with a significant history of COPD and Takotsubo cardiomyopathy who presents emergency department with unresponsiveness with methamphetamine and heroin use and was found to have elevated CPK; fever; tachycardia; tachypnea; leukocytosis; elevated creatinine; and elevated CPK and with mild pinkish discoloration of right medial knee. Severe sepsis Sirs criteria: T-max in emergency department 10.8F; heart rate 120s to 140s; respiratory rate 20s to 40s. White count of 17.8 with bandemia. Lactic acid of 3.5; trend. Noted to have elevated bilirubin and liver enzymes. Etiology is unclear. Patient has mild pinkish discoloration of right medial knee. This area of right medial knee does not look very red. It may be cellulitis but it is mild of severe severity to explain patient's acute illness. Started on Zosyn at emergency department. Discussed emergent department doctor to order vancomycin as well. Vancomycin and Zosyn ordered for inpatient. MRSA PCR ordered. Blood cultures ordered at the emergency department; follow. Urinalysis at emergency department did not show bacteria. Nitrite was negative and leukocyte esterase was only 25. Received IV fluid bolus in the emergency department. Will start patient on normal saline at maintenance rate of 150 mL in the setting of concomitant rhabdomyolysis. Keep patient n.p.o. at this time because patient is obtunded. Rectal Tylenol as needed for fever. Rn Lactation consult Acute encephalopathy Likely toxic; metabolic and infectious Urine toxicology positive for opiates and amphetamines. Brain CT was unremarkable. Treatment as above. MALINDA Creatinine on presentation is 4.16. Review of record shows a baseline creatinine of at most 1. Likely secondary to severe sepsis and rhabdomyolysis. IV fluids as above Bicarbonate is normal. Avoid nephrotoxins. Trend CMP. BUN over creatinine is 13. Likely prerenal on top of intrinsic renal. Rhabdomyolysis CPK of 2298. Likely secondary to patient lying at one place. IV hydration as above Trend CPK. Dermatitis Patient with diffuse rash. 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 History of Takotsubo cardiomyopathy Echocardiogram on 12/31/2019 showed an ejection fraction of 65%. Cardiac catheterization 06/12/2019: No significant CAD, Takotsubo cardiomyopathy with EF of around 25%. Elevated troponin Troponin presentation was 0.207. Likely secondary to demand ischemia from severe sepsis: And decreased clearance from MALINDA. Trend. DVT Prophylaxis Subcutaneous Lovenox. Inpatient E&M: 39845 Init Hosp L3
[2020-06-25 23:29] VITALS: BP 111/98; PULSE 117; RESP 38; TEMP 39.3
--- NOTE | 2020-06-25 23:30 | ED.DCSUM_ITS ---
- ER Visit Summary Date of Service: 06/25/20 Chief Complaint: [Unresponsive] History of Present Illness: The patient is a 55 M [resents to the emergency department via EMS from home. Family members called EMS because apparently patient had been using heroin and methamphetamines 3 days ago and then he went to bed and had not gotten up from bed for 3 days. One of the family members apparently told EMS that they saw him up in that he had showered yesterday. Patient really cannot give me any history. Patient is nonverbal at this time. Patient will open his eyes and look at me but does not follow any commands. Patient has history of CHF, COPD, hypertension, non-Hodgkin's lymphoma.] Physical Examination: [HEENT-PERRLA, EOMI. Cranial nerves II through XII grossly intact. TMs clear. Mucous membranes dry. No adenopathy. Cardiovascular-regular and tachycardic. No murmurs auscultated. Lungs-clear to auscultation, chest wall stable without crepitus or subcu emphysema Abdomen-normoactive bowel sounds, soft, nontender, no rebound or rigidity, no peritoneal signs. Extremities-intact ?4, normal range of motion, normal pulses, atraumatic. On his right knee patient has an area of erythema and cellulitis to the medial aspect that is tender to palpation. Area measures approximately 10 x 8 cm.] Test Results: [EKG obtained on arrival shows sinus tachycardia with a ventricular rate of 142 bpm with some nonspecific ST changes. CBC with differential showed a white count of 17.8, hemoglobin 14, hematocrit 45, platelets 237. Chemistries unremarkable. Total bilirubin was 1.9. Alk phos was 233. ALT 70 and AST was 129. INR was 1.3. Urinalysis was unremarkable. Troponin was 0.207. CPK was elevated 2298. Lactate was 3.5. Chest x-ray showed nothing acute. CT scan of the brain without contrast showed nothing acute.] Toxicology screen positive for opiates and amphetamines. Emergency Department Course and Treatment: [The line established on arrival. Patient given a liter mostly fluid bolus. Patient started on Zosyn 4.5 g IV. Blood cultures ordered and pending.] Treatment Plan: [Admit] Disposition: [Admit] Impression: [Mental status change Illicit drug use Cellulitis right knee Severe sepsis Acute kidney injury Dehydration Rhabdomyolysis] This note was generated with [employer] dictation software. It may contain incorrect words, spelling, and punctuation that were not noted in review of the chart prior to signing ED Disposition - Plan for ED Patient: Referrals: Vi Velásquez MD [Primary Care Provider] -
--- NOTE | 2020-06-25 23:35 | ED.RN ---
updated pt's son, Neil & Tona rashid that pt is being admitted.
[2020-06-25] MEDS: Vancomycin IV 1,000 MG/200 ML BAG 200 MG IV (23:55)
[2020-06-26] VITALS (31 sets, daily range): BP systolic 92–132; BP diastolic 44–83; PULSE 81–117; RESP 21–47; TEMP 37.5–38.8; O2SAT 91–100; BMI 24.5; BMI 24.6
--- NOTE | 2020-06-26 00:44 | PCM.RX.CS ---
Consult Pharmacy has been consulted to manage selected antiobiotic: Vancomycin Type of Consult: New start Suspected Infection: Sepsis Prior Doses of Antibiotics Received/Current Regimen: Medications Discontinued Medications Vancomycin HCl (Vancomycin) 1,000 mg in 200 mls @ 200 mls/hr IV X1 ONE Stop: 06/26/20 00:39 Last Admin: 06/25/20 23:55 Dose: 200 mls/hr Labs: Sodium 143 mmol/L (136-145) 06/25/20 21:34 Potassium 4.4 mmol/L (3.5-5.1) 06/25/20 21:34 Chloride 109 mmol/L (98-107) H 06/25/20 21:34 Carbon Dioxide 22.0 mmol/L (21.0-32.0) 06/25/20 21:34 Anion Gap 12 (5-15) 06/25/20 21:34 BUN 54 mg/dL (7-18) H 06/25/20 21:34 Creatinine 4.16 mg/dL (0.70-1.30) H 06/25/20 21:34 Est GFR (MDRD) Af Amer 19 mL/min (>60) L 06/25/20 21:34 Est GFR (MDRD) Non-Af 16 mL/min (>60) L 06/25/20 21:34 BUN/Creatinine Ratio 13.0 RATIO (10-20) 06/25/20 21:34 Glucose 106 mg/dL (74-106) 06/25/20 21:34 Microbiology: Microbiology 06/25/20 22:03 Mucosa - Nasopharyngeal SARS-CoV-2 Antigen (Rapid) - Final Weight used for dosin kg Estimated Creatinine Clearance: 18.5 Goal Trough: 15-20 mcg/mL Pharmacy Plan for Drug Dosing: Vancomycin 1000mg IV was given in ED. Since CrCl<20 will draw a random level with 06/27/20 am labs and determine further dosing from that value and kidney function at that time. Pharmacy Service will continue to monitor and adjust dosing as required. Follow-Up Labs: Trough Vancomycin - random Labs to be done on [date and time ordered]: 06/27/20 @0600
[2020-06-26] MEDS: 0.9% Normal Saline 1,000 ML 150 ML IV ×3 (01:14→17:00)
[2020-06-26] MEDS: 0.9% Saline Lock 10 ML Syringe IV ×2 (01:29→09:16)
[2020-06-26 01:44] LABS: Reflex Lactate? Y
[2020-06-26 01:51] LABS: M R Staph aureus DNA By PCR Negative (Negative); Probe Check PASS; Specimen Processing Control PASS
[2020-06-26 01:59] LABS: Lactic Acid 1.6 mmol/L (0.4-1.9)
[2020-06-26 05:24] LABS: Absolute Lymphocyte Count 0.56 X10^3/uL (0.83-4.51); Basophil# 0.06 X10^3/uL; Basophil% 0.5 % (0-1); Hematocrit 37.3 % (40-54); Hemoglobin 11.9 g/dL (13.0-16.5); Lymphocyte # 0.56 X10^3/ul (4.0); Lymphocyte % 4.7 % (19-41); Mean Corp Hgb Conc 31.9 g/dL (32-36); Mean Corpuscular Hgb 28.7 pg (27.0-32.0); Mean Corpuscular Volume 90.1 fL (80-94); Mean Platelet Vol. 9.5 fl (6.2-12.0); Monocyte# 0.32 X10^3/uL; Monocyte% 2.7 % (0-10); NRBC Flagged by Analyzer 0 % (0-5); Neutrophil # 10.96 X10^3/uL (2.7-7.7); Neutrophil % 91.3 % (47-70); POSITIVE DIFFERENTIAL YES; POSITIVE MORPHOLOGY YES; Platelet Count 128 K/mm3 (150-450); RBC Distribution Width CV 15.1 % (11.6-14.6); RBC Distribution Width SD 50.6 fl (35.1-43.9); Red Blood Count 4.14 M/mm3 (4.6-6.2)
[2020-06-26 05:26] LABS: Differential Indicated SCAN CRITERIA MET
[2020-06-26 05:48] LABS: Atypical Lymphocyte 1+ %; Differential Comment SCANNED
[2020-06-26 06:57] LABS: ALB/GLOB Ratio 0.5 RATIO (0.9-2.4); AST(SGOT) 69 U/L (15-37); Alanine Aminotransfer ALT/SGPT 51 U/L (16-61); Albumin, Serum 1.6 g/dL (3.2-5.0); Alkaline Phosphatase 157 U/L (45-117); Anion Gap 8 (5-15); BUN 43 mg/dL (7-18); BUN/Creat Ratio 16.5 RATIO (10-20); CPK Total, Creatine Kinase 1020 U/L (39-308); Chloride 117 mmol/L (98-107); EST Glomerular Filtration Rate 28 mL/min (>60); Est Glom Filt Rate - Afr Amer 33 mL/min (>60); Estimated Creatinine Clearance 29.65 ml/min; Globulin 3.5 g/dL (2.2-4.2); Glucose 125 mg/dL (74-106); Potassium 3.5 mmol/L (3.5-5.1); Protein, Total 5.1 g/dL (6.4-8.2); Sodium Level 146 mmol/L (136-145)
--- NOTE | 2020-06-26 08:42 | PCM.RX.CS ---
Consult Pharmacy has been consulted to manage selected antiobiotic: Vancomycin Type of Consult: Follow-up Labs: Sodium 146 mmol/L (136-145) H 06/26/20 06:22 Potassium 3.5 mmol/L (3.5-5.1) 06/26/20 06:22 Chloride 117 mmol/L (98-107) H 06/26/20 06:22 Carbon Dioxide 21.0 mmol/L (21.0-32.0) 06/26/20 06:22 Anion Gap 8 (5-15) 06/26/20 06:22 BUN 43 mg/dL (7-18) H 06/26/20 06:22 Creatinine 2.60 mg/dL (0.70-1.30) H 06/26/20 06:22 Est GFR (MDRD) Af Amer 33 mL/min (>60) L 06/26/20 06:22 Est GFR (MDRD) Non-Af 28 mL/min (>60) L 06/26/20 06:22 BUN/Creatinine Ratio 16.5 RATIO (10-20) 06/26/20 06:22 Glucose 125 mg/dL (74-106) H 06/26/20 06:22 Microbiology: Microbiology 06/25/20 21:34 Blood Culture (Wb) - Anticubital Left Blood Culture - Preliminary 06/25/20 22:03 Mucosa - Nasopharyngeal SARS-CoV-2 Antigen (Rapid) - Final Goal Trough: 15-20 mcg/mL Pharmacy Plan for Drug Dosing: DAILY ASSESSMENT Current Vancomcyin Dose: 1000mg IV x1 administered 06/25 @1555 Number of Doses Received: 1 Current Renal Function: 2.6 / 29mL/min Renal Function Trend: improved Lab/Micro: pending Any Change in Vanc Plan: Renal function has improved significantly, now est CrCl >20mL/min. Will schedule pt for 1000mg IV Q24hr. Trough prior to 3rd total dose per protocol. Pending Level: 06/27/20 @6302 Pharmacy Service will continue to monitor and adjust dosing as required.
--- NOTE | 2020-06-26 09:52 | PCM.CON.CC ---
Problem List (1) Severe sepsis Status: Acute (2) Rhabdomyolysis Status: Acute Qualifiers: Rhabdomyolysis type: non-traumatic Qualified Code(s): M62.82 - Rhabdomyolysis (3) MALINDA (acute kidney injury) Status: Acute (4) COPD (chronic obstructive pulmonary disease) Status: Chronic (5) Nicotine dependence Status: Chronic Qualifiers: Nicotine product type: cigarettes Substance use status: uncomplicated Qualified Code(s): F17.210 - Nicotine dependence, cigarettes, uncomplicated (6) Essential hypertension Status: Chronic (7) Non-Hodgkin lymphoma in remission Status: Resolved Reason for Consult Date of Consultation: 06/26/20 Reason for Consultation: Sepsis History of Present Illness: The patient is a 55 year old M, with past medical history listed below and well-known to me from previous admissions, who presented to [facility] on 06/25/2020 secondary to unresponsiveness. Patient reportedly had been unresponsive for 3 days at home by some accounts, but others reported that he had taken a shower before presentation. EMS was reportedly called. Patient was found with spontaneous respirations, but did not respond to physical stimulation or voice. Patient reportedly had been using methamphetamine and heroin in the past. In the ER, patient was noted to be in sinus tachycardia at a rate of 142 bpm. Laboratory work-up showed a leukocytosis of 17.8, slightly elevated troponin of 0.2 and elevated CPK of 2298. Lactate was also elevated at 3.5. Chest x-ray was unremarkable. Patient was given normal saline bolus and started on IV Zosyn. Blood cultures were pending and patient was admitted to the intensive care unit for further evaluation. Since being in the intensive care unit, patient has been febrile, but otherwise remained hemodynamically stable on 2 L nasal cannula. Patient will open his eyes to voice, but is not following commands at this time. Patient is unable to provide any additional history or review of systems. Patient did recently have an echocardiogram completed that was reviewed. Patient does have a known history of IV drug use leading to previous presentations. Past Medical History Past Medical History (Chronic Problems): Chronic Problems (Last Updated 06/26/20 @ 09:[address] Jim Rodríguez MD) COPD (chronic obstructive pulmonary disease) (Chronic) Nicotine dependence (Chronic) Acute systolic CHF (congestive heart failure) (Chronic) Essential hypertension (Chronic) Medical History: Medical History (Last Updated 06/26/20 @ 09:[address] Jim Rodríguez MD) COPD (chronic obstructive pulmonary disease) (Chronic) J44.9 Nicotine dependence (Chronic) F17.[address] elevation myocardial infarction (STEMI) of inferior wall (Resolved) Onset Date: 06/12/19 I21.19 Takotsubo cardiomyopathy (Resolved) I51.81 Essential hypertension (Chronic) I10 Non-Hodgkin lymphoma in remission (Resolved) C85.90 Avascular necrosis of left femoral head M87.052 Bipolar disorder F31.9 Hepatitis C, chronic B18.2 Hypothyroidism E03.9 Intravenous drug abuse F19.10 NH lymphoma C85.90 Rheumatoid arthritis M06.9 Cholangitis K83.09 Allergies methotrexate Adverse Reaction (Verified 06/25/20 21:31) Hives,Rash,Lesions naproxen [From Naprosyn] Adverse Reaction (Verified 06/25/20 21:31) Upset Stomach BEE VENOM Allergy (Uncoded 06/25/20 21:31) Anaphylaxis ROOT BEER Allergy (Uncoded 06/25/20 21:31) Hives Home Medications: Ambulatory Orders Medication Instructions Recorded Levothyroxine [Synthroid] 112 mcg PO DAILY 07/10/16 Albuterol Sulfate [Proventil Hfa] 6.7 gm IH Q4H PRN 10/21/16 Gabapentin [Neurontin] 900 mg PO TIDCM 10/21/16 cyanocobalamin (vitamin B-12) 1,000 syr IM QMONTH 30 Days #1 ml 03/21/18 1,000 mcg/mL injection solution Fluticasone/Vilanterol [Breo 1 ea INHALATION DAILY 02/14/19 Ellipta 200-25 Mcg INH] Montelukast [Singulair] 10 mg PO QHS 02/14/19 Epi Pen (for allergic rxn) 0.3 mg IM X1 06/13/19 lithium carbonate 300 mg 300 mg PO DAILY PRN tab 01/10/20 tablet,extended release prednisone 10 mg tablet 10 mg PO DAILY 01/10/20 Mupirocin [Bactroban] 1 applic TOPICAL TID #1 tube 03/10/20 Surgical History: Surgical History (Last Reviewed 06/26/20 @ 02:[address] Renato Hutson MD) H/O arthroscopic knee surgery Z98.890 H/O total hip arthroplasty Z96.649 History of appendectomy Z90.49 History of cholecystectomy Z90.49 History of left heart catheterization Onset Date: 06/12/19 Z98.890 04/07/2018 facial reconstructive surgery Surgical History: appendectomy, arthroscopy, knee, cholecystectomy, total hip arthroplasty, - - Facial reconstructive surgery. Psychiatric History: Bipolar Smoking Status: Current every day smoker - *Family History Maternal History Items: Cancer Paternal History Items: Cancer Review of Systems Unable to obtain accurate/complete ROS d/t: Patient cooperation Patient Problems: Active and Suspected Problems (Last Updated 06/26/20 @ 09:[address] Jim Rodríguez MD) Severe sepsis (Acute) Rhabdomyolysis (Acute) Cellulitis (Acute) MALINDA (acute kidney injury) (Acute) Objective: Chest x-ray was personally reviewed and shows no acute infiltrate. Patient's last echocardiogram was completed in December 2019 showing an EF of 65% with no other significant abnormalities. Patient is also had a walking oximetry that showed desaturation, but no need for supplemental oxygen in July 2019. No pulmonary function tests are available for review. Patient has not been cooperative with outpatient work-up and reportedly was smoking routinely at the last visit. - Physical Exam Vitals/I&O's: Vital Signs Temp Pulse Resp BP Pulse Ox 37.5 C H 85 39 H 110/75 100 06/26/20 07:00 06/26/20 07:00 06/26/20 07:00 06/26/20 07:00 06/26/20 07:25 Oxygen Flow Rate (L/min) 2 Oxygen Delivery Method Nasal Cannula Weight: 68.765 kg Body Mass Index (BMI) 24.5 Finger Stick Blood Glucose 118 Intake and Output for Last 24 Hours 06/24/20 06/25/20 06/26/20 23:59 23:59 23:59 Intake Total 1932.5 / 1932.5 1200 / 1200 Output Total 650 / 650 Balance 1932.5 / 193.5 550 / 550 General: Confused, Lethargic, Non-Cooperative, - - Shallow respirations, but no retractions. HEENT: Atraumatic, PERRLA, EOMI, Normocephalic, - - Scleral injection Oral: No Gingival or Mucosal Lesions/ Ulcerations, Dry Mucosa Neck: Supple, No JVD, No Nodes, Trachea Midline Lungs: No rhonchi, No wheeze, No rales, Diminished, - Cardiovascular: Regular rate, Regular Rhythm, Normal S1, Normal S2, No murmurs, No rub noted, No Gallop Abdomen: Bowel Sounds Present, Soft, Non Tender, Non-Distended Extremities: No clubbing, No cyanosis, No edema Skin: No rashes, No breakdown Musculoskeletal: No Tenderness to Palpation of Joints or Extremities Lymphatic: No Cervical, Supraclavicular, or Inguinal Adenopathy Neurological: Cranial nerves II-XII grossly intact, Neuro grossly intact, Motor Exam 5/5 strength throughout Psych/Mental Status: Flat Affect, Impulsive Microbiology Past 72 Hours 06/25/20 21:34 Blood Culture (Wb) - Anticubital Left Blood Culture - Preliminary 06/25/20 22:03 Mucosa - Nasopharyngeal SARS-CoV-2 Antigen (Rapid) - Final Laboratory Results 06/25/20 21:34: WBC 17.8 H, RBC 4.94, Hgb 14.3, Hct 44.7, MCV 90.5, MCH 28.9, MCHC 32.0, RDW Std Deviation 49.9 H, RDW Coeff of Re 15.1 H, Plt Count 237, MPV 9.9, Immature Gran % (Auto) 1.100 H, Neut % (Auto) 92.6 H, Lymph % (Auto) 2.2 L, [place] % (Auto) 2.9, Eos % (Auto) 0.8, Baso % (Auto) 0.4, Absolute Neuts (auto) 16.5 H, Absolute Lymphs (auto) 0.39 L, Nucleated RBC % 0.2, Differential Comment SCANNED 06/25/20 21:34: PT 15.3 H, INR 1.3, APTT 36.6 H 06/25/20 21:34: Sodium 143, Potassium 4.4, Chloride 109 H, Carbon Dioxide 22.0, Anion Gap 12, BUN 54 H, Creatinine 4.16 H, Estim Creat Clear Calc 18.53, Est GFR (MDRD) Af Amer 19 L, Est GFR (MDRD) Non-Af 16 L, BUN/Creatinine Ratio 13.0, Glucose 106, Calcium 8.5, Total Bilirubin 1.90 H, AST 129 H, ALT 70 H, Alkaline Phosphatase 233 H, Troponin I 0.207 H, Total Protein 6.9, Albumin 2.3 L, Globulin 4.6 H, Albumin/Globulin Ratio 0.5 L 06/25/20 21:34: Lactic Acid 3.5 H* 06/25/20 21:34: Total Creatine Kinase 2298 H 06/25/20 21:50: Urine Color Haylee, Urine Clarity Clear, Urine pH 7.0, Ur Specific [place] 1.005, Urine Protein 30 H, Urine Glucose (UA) Normal, Urine Ketones 5 H, Urine Occult Blood 10 H, Urine Nitrite Negative, Urine Bilirubin 1 H, Urine Urobilinogen 4 H, Ur Leukocyte Esterase 25 H, Urine RBC 0 SEEN, Urine WBC 0-5 SEEN, Ur Squamous Epith Cells 0 SEEN, Urine Bacteria 0 SEEN, Urine Mucus 0 SEEN 06/25/20 21:50: Urine Opiates Screen POSITIVE H, Urine Methadone Screen NEGATIVE, Ur Barbiturates Screen NEGATIVE, Ur Phencyclidine Scrn NEGATIVE, Ur Amphetamines Screen POSITIVE H, U Methamphetamin-MDMA NEGATIVE, U Benzodiazepines Scrn NEGATIVE, Urine Cocaine Screen NEGATIVE, U Cannabinoids Screen NEGATIVE, Ur Drug Screen Comment 06/25/20 22:13: POC Glucose 118 H 06/26/20 00:30: MRSA (PCR) Negative 06/26/20 01:26: Troponin I 0.191 H 06/26/20 01:30: Lactic Acid 1.6 06/26/20 04:30: WBC Cancelled, Corrected WBC Cancelled, RBC Cancelled, Hgb Cancelled, Hct Cancelled, MCV Cancelled, MCH Cancelled, MCHC Cancelled, RDW Std Deviation Cancelled, RDW Coeff of Re Cancelled, Plt Count Cancelled, MPV Cancelled, Immature Gran % (Auto) Cancelled, Neut % (Auto) Cancelled, Lymph % (Auto) Cancelled, [place] % (Auto) Cancelled, Eos % (Auto) Cancelled, Baso % (Auto) Cancelled, Absolute Neuts (auto) Cancelled, Absolute Lymphs (auto) Cancelled, Total Counted Cancelled, Neutrophils % (Manual) Cancelled, Band Neutrophils % Cancelled, Lymphocytes % (Manual) Cancelled, Monocytes % (Manual) Cancelled, Eosinophils % (Manual) Cancelled, Basophils % (Manual) Cancelled, Metamyelocytes % Cancelled, Myelocytes % Cancelled, Promyelocytes % Cancelled, Blast Cells % Cancelled, Plasma Cell % (Manual) Cancelled, Other Cells % Cancelled, Nucleated RBC % Cancelled, Nucleated RBCs/100 WBC Cancelled, Differential Comment Cancelled, Diff Path Review Cancelled, Hypersegmented Neuts Cancelled, Atypical Lymphocytes Cancelled, Reactive Lymphocytes Cancelled, Smudge Cells Cancelled, Toxic Granulation Cancelled, Toxic Vacuolation Cancelled, Dohle Bodies Cancelled, Noemi Rods Cancelled, Platelet Estimate Cancelled, Plt Morphology Comment Cancelled, RBC Morphology Cancelled, Polychromasia Cancelled, Hypochromasia Cancelled, Poikilocytosis Cancelled, Basophilic Stippling Cancelled, Anisocytosis Cancelled, Microcytosis Cancelled, Macrocytosis Cancelled, Spherocytes Cancelled, Sickle Cells Cancelled, Target Cells Cancelled, Tear Drop Cells Cancelled, Ovalocytes Cancelled, Stomatocytes Cancelled, [place] Bodies Cancelled, [place] Cells Cancelled, Bite Cells Cancelled, Crenated Cell Cancelled, Acanthocytes (Spur) Cancelled, Rouleaux Cancelled, Schistocytes Cancelled 06/26/20 04:30: Sodium Cancelled, Potassium Cancelled, Chloride Cancelled, Carbon Dioxide Cancelled, Anion Gap Cancelled, BUN Cancelled, Creatinine Cancelled, Estim Creat Clear Calc Cancelled, Est GFR (MDRD) Af Amer Cancelled, Est GFR (MDRD) Non-Af Cancelled, BUN/Creatinine Ratio Cancelled, Glucose Cancelled, Calcium Cancelled, Total Bilirubin Cancelled, AST Cancelled, ALT Cancelled, Alkaline Phosphatase Cancelled, Total Creatine Kinase Cancelled, Total Protein Cancelled, Albumin Cancelled, Globulin Cancelled, Albumin/Globulin Ratio Cancelled 06/26/20 04:30: Troponin I Cancelled 06/26/20 05:13: WBC 12.0 H, RBC 4.14 L, Hgb 11.9 L, Hct 37.3 L, MCV 90.1, MCH 28.7, MCHC 31.9 L, RDW Std Deviation 50.6 H, RDW Coeff of Re 15.1 H, Plt Count 128 L, MPV 9.5, Immature Gran % (Auto) 0.800, Neut % (Auto) 91.3 H, Lymph % (Auto) 4.7 L, [place] % (Auto) 2.7, Eos % (Auto) 0.0, Baso % (Auto) 0.5, Absolute Neuts (auto) 11.0 H, Absolute Lymphs (auto) 0.56 L, Nucleated RBC % 0, Differential Comment SCANNED, Atypical Lymphocytes 1+ 06/26/20 05:13: Sodium Cancelled, Potassium Cancelled, Chloride Cancelled, Carbon Dioxide Cancelled, Anion Gap Cancelled, BUN Cancelled, Creatinine Cancelled, Estim Creat Clear Calc Cancelled, Est GFR (MDRD) Af Amer Cancelled, Est GFR (MDRD) Non-Af Cancelled, BUN/Creatinine Ratio Cancelled, Glucose Cancelled, Calcium Cancelled, Total Bilirubin Cancelled, AST Cancelled, ALT Cancelled, Alkaline Phosphatase Cancelled, Total Creatine Kinase Cancelled, Troponin I Cancelled, Total Protein Cancelled, Albumin Cancelled, Globulin Cancelled, Albumin/Globulin Ratio Cancelled 06/26/20 06:22: Sodium 146 H, Potassium 3.5, Chloride 117 H, Carbon Dioxide 21.0, Anion Gap 8, BUN 43 H, Creatinine 2.60 H, Estim Creat Clear Calc 29.65, Est GFR (MDRD) Af Amer 33 L, Est GFR (MDRD) Non-Af 28 L, BUN/Creatinine Ratio 16.5, Glucose 125 H, Calcium 7.0 L, Total Bilirubin 1.60 H, AST 69 H, ALT 51, Alkaline Phosphatase 157 H, Total Creatine Kinase 1020 H, Troponin I 0.108 H, Total Protein 5.1 L, Albumin 1.6 L, Globulin 3.5, Albumin/Globulin Ratio 0.5 L Current Medications Acetaminophen (Acetaminophen 650 Mg Suppository) 650 mg RECTAL Q6H PRN PRN PRN Reason: TEMP > 100.5 F Enoxaparin Sodium (Enoxaparin 30 Mg/0.3 Ml Syringe) 30 mg SC DAILY [facility] Sodium Chloride () 1,000 mls @ 150 mls/hr IV .[id number] [facility] Last Admin: 06/26/20 09:12 Dose: 150 mls/hr Documented by: Piperacillin Sod/Tazobactam (Sod 3.375 gm/ Sodium Chloride) 50 mls @ 12.5 mls/hr IV Q12 [facility] Vancomycin IV Pharmacy to Dose (1 ea/ Sodium Chloride) 500 mls @ 250 mls/hr IV PRN PRN; Protocol PRN Reason: Rx to Dose Sodium Chloride () 250 mls @ 15 mls/hr IV .[id number] PRN PRN Reason: Saline Flush Sodium Chloride () 250 mls @ 15 mls/hr IV .[id number] PRN PRN Reason: Additional IVPB Infusion Vancomycin HCl (Vancomycin) 1,000 mg in 200 mls @ 200 mls/hr IV Q24H [facility] Ondansetron HCl (Ondansetron 4 Mg/2 Ml Vial) 4 mg IV Q8H PRN PRN PRN Reason: NAUSEA/VOMITING Sodium Chloride (0.9% Saline Lock 10 Ml Syringe) 10 - 40 ml IV UD PRN PRN Reason: SALINE FLUSH Last Admin: 06/26/20 09:16 Dose: 30 ml Documented by: Clinical Impression(s) from Imaging Studies Brain CT 06/25/20 21:40 IMPRESSION: Normal unenhanced CT scan of the brain. Electronically Signed: Mark Bosch DO at 22:04 EST Tel , Service support , Chest X-Ray 06/25/20 21:57 IMPRESSION: Normal x-ray examination of the chest. Electronically Signed: Mark Bosch DO at 22:18 EST Tel , Service support , Assessment/Plan Active and Suspected Problems (Last Updated 06/26/20 @ 09:[address] Jim Rodríguez MD) Severe sepsis (Acute) Rhabdomyolysis (Acute) Cellulitis (Acute) MALINDA (acute kidney injury) (Acute) RECOMMENDATIONS: 1. Continue empiric antibiotics 2. Consider limited echo for evaluation of endocarditis 3. Monitor for withdrawal 4. Wean oxygen as tolerated 5. Delirium protocol IMPRESSIONS: 1. Severe sepsis secondary to possible IV drug use Unclear if patient has a transient bacteremia or deep-seated infection. Patient did have significant fever and tachycardia on presentation along with leukocytosis and bandemia. Patient does have a history of IV drug use, so endocarditis would be a concern. Await species and sensitivity of gram-positive cocci from blood cultures. Patient is on empiric antibiotics at this time. Blood pressures have remained stable, but will need to be followed closely. Follow urine output. 2. Acute rhabdomyolysis Medical suspicion for rhabdomyolysis secondary to unresponsiveness associated with IV drug use. CKs do appear to be responding to fluid resuscitation. Patient is not showing any signs of hypoxic respiratory failure related to fluids, will have to watch closely. Patient does have a history of Takotsubo. 3. Acute kidney injury Clinical suspicion for prerenal etiology. Baseline creatinine of 1. Patient does have some elevated CK, but this does not appear to be to the level to induce acute kidney injury. Continue aggressive fluid resuscitation and watch urine output. No indication for alkalinization of the urine. 4. History of IV drug use/hepatitis C/history of Takotsubo/tobacco abuse/history of COPD/history of non-Hodgkin's lymphoma in remission Complicates care, management, recovery and prognosis. We will have to watch for withdrawal symptoms. Inpatient E&M: 02001 Init Hosp L3
--- NOTE | 2020-06-26 10:10 | PN_ITS ---
Patient Problems: Active and Suspected Problems (Last Updated 06/26/20 @ 12:[address] Jim Rodríguez MD) Severe sepsis (Acute) Rhabdomyolysis (Acute) MLAINDA (acute kidney injury) (Acute) Subjective: Chief complaint: Follow-up after admission for change in mental status/encephalopathy, severe sepsis, acute kidney injury, rhabdomyolysis, abnormal cardiac enzymes and bacteremia. Patient seen and examined. No acute events overnight. This morning, patient is sleepy and lethargic, arousable, open eyes to verbal commands. He is not following commands, he was not able to provide any history. He has been having spikes of low-grade fever, blood pressure and heart rate are maintained, pulse ox is 97% on 2 L. - Physical Exam Vitals/I&O's: Vital Signs Temp Pulse Resp BP Pulse Ox 99.5 F H 85 39 H 110/75 100 06/26/20 07:00 06/26/20 07:00 06/26/20 07:00 06/26/20 07:00 06/26/20 07:25 Oxygen Flow Rate (L/min) 2 Oxygen Delivery Method Nasal Cannula Weight: 151 lb 9.6 oz Body Mass Index (BMI) 24.5 Finger Stick Blood Glucose 118 Intake and Output for Last 24 Hours 06/24/20 06/25/20 06/26/20 23:59 23:59 23:59 Intake Total 1932.5 / 1932.5 1200 / 1200 Output Total 950 / 950 Balance 1932.5 / 1932.5 250 / 250 General: Alert, Cooperative, Lethargic, - - Sleepy, arousable, open eyes to verbal stimulus. HEENT: Atraumatic, PERRLA, EOMI, Normocephalic Oral: Moist Mucosa, No Gingival or Mucosal Lesions/ Ulcerations Neck: Supple, No JVD, Negative Carotid Bruits, Trachea Midline, Thyroid Normal S ize and Texture Lungs: Clear to auscultation, No rhonchi, No wheeze, No rales, Diminished Cardiovascular: Regular rate, Regular Rhythm, Normal S1, Normal S2, PMI Normal, Tachycardic Abdomen: Bowel Sounds Present, Soft, Non Tender, Non-Distended, No Hepato- splenomegaly Extremities: No clubbing, No cyanosis, No edema Skin: No rashes, Ulcer/ Wound, - - Multiple skin ulcers on both upper and lower extremities surrounded by minimal erythema, no drainage, dry. Lymphatic: No Cervical, Supraclavicular, or Inguinal Adenopathy Neurological: Cranial nerves II-XII grossly intact, - - Open eyes to verbal stimuli, not able to follow commands. Psych/Mental Status: - - Unable to assess. Microbiology Past 72 Hours 06/25/20 21:34 Blood Culture (Wb) - Anticubital Left Blood Culture - Preliminary 06/25/20 22:03 Mucosa - Nasopharyngeal SARS-CoV-2 Antigen (Rapid) - Final Laboratory Results 06/25/20 21:34: WBC 17.8 H, RBC 4.94, Hgb 14.3, Hct 44.7, MCV 90.5, MCH 28.9, MCHC 32.0, RDW Std Deviation 49.9 H, RDW Coeff of Re 15.1 H, Plt Count 237, MPV 9.9, Immature Gran % (Auto) 1.100 H, Neut % (Auto) 92.6 H, Lymph % (Auto) 2.2 L, [place] % (Auto) 2.9, Eos % (Auto) 0.8, Baso % (Auto) 0.4, Absolute Neuts (auto) 16.5 H, Absolute Lymphs (auto) 0.39 L, Nucleated RBC % 0.2, Differential Comment SCANNED 06/25/20 21:34: PT 15.3 H, INR 1.3, APTT 36.6 H 06/25/20 21:34: Sodium 143, Potassium 4.4, Chloride 109 H, Carbon Dioxide 22.0, Anion Gap 12, BUN 54 H, Creatinine 4.16 H, Estim Creat Clear Calc 18.53, Est GFR (MDRD) Af Amer 19 L, Est GFR (MDRD) Non-Af 16 L, BUN/Creatinine Ratio 13.0, Glucose 106, Calcium 8.5, Total Bilirubin 1.90 H, AST 129 H, ALT 70 H, Alkaline Phosphatase 233 H, Troponin I 0.207 H, Total Protein 6.9, Albumin 2.3 L, Globulin 4.6 H, Albumin/Globulin Ratio 0.5 L 06/25/20 21:34: Lactic Acid 3.5 H* 06/25/20 21:34: Total Creatine Kinase 2298 H 06/25/20 21:50: Urine Color Haylee, Urine Clarity Clear, Urine pH 7.0, Ur Specific [place] 1.005, Urine Protein 30 H, Urine Glucose (UA) Normal, Urine Ketones 5 H, Urine Occult Blood 10 H, Urine Nitrite Negative, Urine Bilirubin 1 H, Urine Urobilinogen 4 H, Ur Leukocyte Esterase 25 H, Urine RBC 0 SEEN, Urine WBC 0-5 SEEN, Ur Squamous Epith Cells 0 SEEN, Urine Bacteria 0 SEEN, Urine Mucus 0 SEEN 06/25/20 21:50: Urine Opiates Screen POSITIVE H, Urine Methadone Screen NEGATIVE, Ur Barbiturates Screen NEGATIVE, Ur Phencyclidine Scrn NEGATIVE, Ur A mphetamines Screen POSITIVE H, U Methamphetamin-MDMA NEGATIVE, U Benzodiazepines Scrn NEGATIVE, Urine Cocaine Screen NEGATIVE, U Cannabinoids Screen NEGATIVE, Ur Drug Screen Comment 06/25/20 22:13: POC Glucose 118 H 06/26/20 00:30: MRSA (PCR) Negative 06/26/20 01:26: Troponin I 0.191 H 06/26/20 01:30: Lactic Acid 1.6 06/26/20 04:30: WBC Cancelled, Corrected WBC Cancelled, RBC Cancelled, Hgb Cancelled, Hct Cancelled, MCV Cancelled, MCH Cancelled, MCHC Cancelled, RDW Std Deviation Cancelled, RDW Coeff of Re Cancelled, Plt Count Cancelled, MPV Cancelled, Immature Gran % (Auto) Cancelled, Neut % (Auto) Cancelled, Lymph % (Auto) Cancelled, [place] % (Auto) Cancelled, Eos % (Auto) Cancelled, Baso % (Auto) Cancelled, Absolute Neuts (auto) Cancelled, Absolute Lymphs (auto) Cancelled, Total Counted Cancelled, Neutrophils % (Manual) Cancelled, Band Neutrophils % Cancelled, Lymphocytes % (Manual) Cancelled, Monocytes % (Manual) Cancelled, Eosinophils % (Manual) Cancelled, Basophils % (Manual) Cancelled, Metamyelocytes % Cancelled, Myelocytes % Cancelled, Promyelocytes % Cancelled, Blast Cells % Cancelled, Plasma Cell % (Manual) Cancelled, Other Cells % Cancelled, Nucleated RBC % Cancelled, Nucleated RBCs/100 WBC Cancelled, Differential Comment Cancelled, Diff Path Review Cancelled, Hypersegmented Neuts Cancelled, Atypical Lymphocytes Cancelled, Reactive Lymphocytes Cancelled, Smudge Cells Cancelled, Toxic Granulation Cancelled, Toxic Vacuolation Cancelled, Dohle Bodies Cancelled, Noemi Rods Cancelled, Platelet Estimate Cancelled, Plt Morphology Comment Cancelled, RBC Morphology Cancelled, Polychromasia Cancelled, Hypochromasia Cancelled, Poikilocytosis Cancelled, Basophilic Stippling Cancelled, Anisocytosis Cancelled, Microcytosis Cancelled, Macrocytosis Cancelled, Spherocytes Cancelled, Sickle Cells Cancelled, Target Cells Cancelled, Tear Drop Cells Cancelled, Ovalocytes Cancelled, Stomatocytes Cancelled, Finley-Virgin Bodies Cancelled, Happy Cells Cancelled, Bite Cells Cancelled, Crenated Cell Cancelled, Acanthocytes (Spur) Cancelled, Rouleaux Cancelled, Schistocytes Cancelled 06/26/20 04:30: Sodium Cancelled, Potassium Cancelled, Chloride Cancelled, Carbon Dioxide Cancelled, Anion Gap Cancelled, BUN Cancelled, Creatinine Cancelled, Estim Creat Clear Calc Cancelled, Est GFR (MDRD) Af Amer Cancelled, Est GFR (MDRD) Non-Af Cancelled, BUN/Creatinine Ratio Cancelled, Glucose Cancelled, Calcium Cancelled, Total Bilirubin Cancelled, AST Cancelled, ALT Cancelled, Alkaline Phosphatase Cancelled, Total Creatine Kinase Cancelled, Total Protein Cancelled, Albumin Cancelled, Globulin Cancelled, Albumin/Globulin Ratio Cancelled 06/26/20 04:30: Troponin I Cancelled 06/26/20 05:13: WBC 12.0 H, RBC 4.14 L, Hgb 11.9 L, Hct 37.3 L, MCV 90.1, MCH 28.7, MCHC 31.9 L, RDW Std Deviation 50.6 H, RDW Coeff of Re 15.1 H, Plt Count 128 L, MPV 9.5, Immature Gran % (Auto) 0.800, Neut % (Auto) 91.3 H, Lymph % (Auto) 4.7 L, [place] % (Auto) 2.7, Eos % (Auto) 0.0, Baso % (Auto) 0.5, Absolute Neuts (auto) 11.0 H, Absolute Lymphs (auto) 0.56 L, Nucleated RBC % 0, Differential Comment SCANNED, Atypical Lymphocytes 1+ 06/26/20 05:13: Sodium Cancelled, Potassium Cancelled, Chloride Cancelled, Carbon Dioxide Cancelled, Anion Gap Cancelled, BUN Cancelled, Creatinine Cancelled, Estim Creat Clear Calc Cancelled, Est GFR (MDRD) Af Amer Cancelled, Est GFR (MDRD) Non-Af Cancelled, BUN/Creatinine Ratio Cancelled, Glucose Cancelled, Calcium Cancelled, Total Bilirubin Cancelled, AST Cancelled, ALT Cancelled, Alkaline Phosphatase Cancelled, Total Creatine Kinase Cancelled, Troponin I Cancelled, Total Protein Cancelled, Albumin Cancelled, Globulin Cancelled, Albumin/Globulin Ratio Cancelled 06/26/20 06:22: Sodium 146 H, Potassium 3.5, Chloride 117 H, Carbon Dioxide 21.0, Anion Gap 8, BUN 43 H, Creatinine 2.60 H, Estim Creat Clear Calc 29.65, Est GFR (MDRD) Af Amer 33 L, Est GFR (MDRD) Non-Af 28 L, BUN/Creatinine Ratio 16.5, Glucose 125 H, Calcium 7.0 L, Total Bilirubin 1.60 H, AST 69 H, ALT 51, Alkaline Phosphatase 157 H, Total Creatine Kinase 1020 H, Troponin I 0.108 H, Total Protein 5.1 L, Albumin 1.6 L, Globulin 3.5, Albumin/Globulin Ratio 0.5 L Clinical Impression(s) from Imaging Studies Brain CT 06/25/20 21:40 IMPRESSION: Normal unenhanced CT scan of the brain. Electronically Signed: Mark Bosch DO at 22:04 EST Tel , Service support , Chest X-Ray 06/25/20 21:57 IMPRESSION: Normal x-ray examination of the chest. Electronically Signed: Mark Bosch DO at 22:18 EST Tel , Service support , Current Medications Acetaminophen (Acetaminophen 650 Mg Suppository) 650 mg RECTAL Q6H PRN PRN PRN Reason: TEMP > 100.5 F Enoxaparin Sodium (Enoxaparin 30 Mg/0.3 Ml Syringe) 30 mg SC DAILY MARISSA Sodium Chloride () 1,000 mls @ 150 mls/hr IV .[id number] MARISSA Last Admin: 06/26/20 09:12 Dose: 150 mls/hr Documented by: Piperacillin Sod/Tazobactam (Sod 3.375 gm/ Sodium Chloride) 50 mls @ 12.5 mls/hr IV Q12 MARISSA Vancomycin IV Pharmacy to Dose (1 ea/ Sodium Chloride) 500 mls @ 250 mls/hr IV PRN PRN; Protocol PRN Reason: Rx to Dose Sodium Chloride () 250 mls @ 15 mls/hr IV .[id number] PRN PRN Reason: Saline Flush Sodium Chloride () 250 mls @ 15 mls/hr IV .[id number] PRN PRN Reason: Additional IVPB Infusion Vancomycin HCl (Vancomycin) 1,000 mg in 200 mls @ 200 mls/hr IV Q24H MARISSA Ondansetron HCl (Ondansetron 4 Mg/2 Ml Vial) 4 mg IV Q8H PRN PRN PRN Reason: NAUSEA/VOMITING Sodium Chloride (0.9% Saline Lock 10 Ml Syringe) 10 - 40 ml IV UD PRN PRN Reason: SALINE FLUSH Last Admin: 06/26/20 09:16 Dose: 30 ml Documented by: Medical Necessity - Tobacco Use Smoking Status: Current every day smoker Tobacco Use: Cigarettes Assessment/Plan All Active Problems (Last Updated 06/26/20 @ 12:[address] Jim Rodríguez MD) Encephalopathy (Acute) Bacteremia (Acute) Severe sepsis (Acute) Rhabdomyolysis (Acute) MALINDA (acute kidney injury) (Acute) This is a 55 years old male patient presented to the emergency room by squad because of family members state that patient has been using heroin and methamphetamines 3 days ago, went to bed and he had not gotten up since then, found to have acute encephalopathy, acute kidney injury secondary to rhabdomyolysis, severe sepsis secondary to bacteremia. #1 severe sepsis: With bacteremia likely due to IV drug use. Initial blood culture revealed staph aureus, final is pending. Chest x-ray showed no acute findings. Urinalysis showed no evidence of acute cystitis. COVID-19 antigen came back negative. Patient is on IV vancomycin and Zosyn. He has been having spikes of fever, WBC is trending down. Blood pressure is maintained, slight tachycardia, on room air. Plan: Continue IV antibiotics, 2D echocardiogram to look for infective endocarditis, with CBC and BMP tomorrow morning. #2 acute kidney injury: Due to rhabdomyolysis, prerenal. Baseline kidney function is normal. On admission, BUN was 154, creatinine is 4.16. Patient has been on IV fluids, BUN came down to 43 and creatinine is down to 2.60, impro ving. Plan to continue IV fluids, repeat BMP tomorrow morning. #3 rhabdomyolysis: Secondary to muscle damage due to her bedridden for long time. He is on IV fluids as above, CPK is trending down. #4 abnormal cardiac enzymes: Likely due to demand ischemia secondary to #1 and 2. EKG revealed no acute hemic changes. Troponin is trending down. Patient had a history of Takotsubo cardiomyopathy, no acute CHF. Plan for 2D echocardiogram. #5 COPD: Currently, he is on 2 L of oxygen. Plan for albuterol as needed. #6 history of IV drug use: Urine drug screen is positive for opioids and ampheta mines. #7 chronic hepatitis C: Liver transaminases are chronically elevated, alk phos is back to normal today. #8 history of Takotsubo cardiomyopathy: Without evidence of acute CHF. Plan for 2D echocardiogram as above. #9 DVT prophylaxis: Change to subcu heparin. This note was generated with [employer] dictation software. It may contain incorrect words, spelling, and punctuation that were not noted in checking the note before signing. Inpatient E&M: [id number] [facility] Hosp L3
--- NOTE | 2020-06-26 10:30 | CASEMGMT ---
MELO BAUER NOTE; Participated in ICU interdisciplinary rounds. Pt is sleepy/lethargic, arousable and opens eyes to verbal commands but is not following commands. Initial assessment deferred at this time. CM/YESSENIA following. Amalia BSN MELO CM
[2020-06-26] MEDS: Enoxaparin 30 MG/0.3 ML Syringe SC (10:45)
--- NOTE | 2020-06-26 12:17 | ECHOCS_ITS ---
Reason For Study: BACTEREMIA, IV DRUG USER Procedure This was a 2D Doppler, Color Flow transthoracic echocardiogram. The study was technically difficult. PT uncontrollably shaking during exam. Exam performed portable in ICU/CCU. Left Ventricle Normal LV size. Left ventricular systolic function is normal. The estimated ejection fraction is 60 %. No regional wall motion abnormalities noted. Right Ventricle Normal RV size. Normal systolic function. Atria Normal left atrium. Normal right atrium. Mitral Valve Normal mitral valve. Tricuspid Valve Normal tricuspid valve. Aortic Valve Trisinus/trileaflet aortic valve. Pulmonic Valve Normal pulmonic valve. Great Vessels Normal aortic root. The pulmonary artery is normal size. Normal inferior vena cava. Pericardium/Pleural No pericardial effusion. MMode/2D Measurements & Calculations LVIDd: 4.6 cm IVSd: 1.1 cm Ao root diam: 2.8 cm LVIDs: 3.2 cm LVPWd: 1.1 cm RVDd: 3.3 cm FS: 29.7 % LAV(MOD-bp): 43.3 ml LA A4 area: 17.2 cm2 LA dimension(2D): 3.5 cm LAV(MOD-bp) Indexed: 24.3 ml/m2 LAV(MOD-sp2): 40.2 ml LAV(MOD-sp4): 46.6 ml RA A4 area: 14.1 cm2 Time Measurements MV dec time: 0.17 sec Doppler Measurements & Calculations MV E max jerson: 56.8 cm/sec Lat Peak E' Jerson: 13.8 cm/sec Med Peak E' Jerson: 9.6 cm/sec MV A max jerson: 48.1 cm/sec E/E' lat: 4.1 E/E' med: 5.9 MV E/A: 1.2 Ao V2 max: 129.3 cm/sec LV V1 max: 93.9 cm/sec PA V2 max: 119.0 cm/sec Ao max P.7 mmHg LV V1 max P.5 mmHg Interpretation Summary Normal LV size. Left ventricular systolic function is normal. The estimated ejection fraction is 60 %. Structurally normal valves. There is no evidence of a mass or vegetation. This does not rule out endocarditis. Contrast injection was performed. Ordering Physician: Jim Rodríguez Referring Physician: Vi Velásquez Performed By: Becky Messer, ANGELY, RVT
[2020-06-26] MEDS: Acetaminophen 650 MG Suppository RECTAL (14:44)
[2020-06-26] MEDS: Erythromycin Base 1 OPTH.TUBE 1 APPLIC EACH EYE ×2 (14:45→21:50)
[2020-06-26] MEDS: Heparin Injection (Vial) 5,000 UNIT/ML VIAL 5000 UNIT SC (21:48)
[2020-06-27] VITALS (20 sets, daily range): BP systolic 109–139; BP diastolic 65–98; PULSE 74–113; RESP 18–40; TEMP 37–38.5; O2SAT 91–99
[2020-06-27] MEDS: Vancomycin IV 1,000 MG/200 ML BAG 200 MG IV
[2020-06-27] MEDS: 0.9% Normal Saline 1,000 ML 100 ML IV (00:03)
[2020-06-27] MEDS: Acetaminophen 650 MG Suppository RECTAL (02:59)
[2020-06-27 05:07] LABS: Absolute Lymphocyte Count 0.48 X10^3/uL (0.83-4.51); Basophil# 0.04 X10^3/uL; Basophil% 0.3 % (0-1); Eosinophil# 0.01 X10^3/uL; Eosinophils% 0.1 % (0-5); Hematocrit 33.8 % (40-54); Hemoglobin 10.8 g/dL (13.0-16.5); Lymphocyte # 0.48 X10^3/ul (4.0); Lymphocyte % 3.8 % (19-41); Mean Corpuscular Hgb 29.3 pg (27.0-32.0); Mean Corpuscular Volume 91.8 fL (80-94); Mean Platelet Vol. 10.4 fl (6.2-12.0); Monocyte# 0.16 X10^3/uL; Monocyte% 1.3 % (0-10); NRBC Flagged by Analyzer 0 % (0-5); Neutrophil % 93.6 % (47-70); POSITIVE DIFFERENTIAL YES; POSITIVE MORPHOLOGY YES; Platelet Count 108 K/mm3 (150-450); RBC Distribution Width CV 15.3 % (11.6-14.6); RBC Distribution Width SD 51.5 fl (35.1-43.9); Red Blood Count 3.68 M/mm3 (4.6-6.2); White Blood Count 12.8 K/mm3 (4.4-11.0)
[2020-06-27 05:08] LABS: Differential Indicated SCAN CRITERIA MET
[2020-06-27] MEDS: Heparin Injection (Vial) 5,000 UNIT/ML VIAL 5000 UNIT SC ×2 (05:08→14:31)
[2020-06-27] MEDS: Erythromycin Base 1 OPTH.TUBE 1 APPLIC EACH EYE ×3 (05:08→21:25)
[2020-06-27 05:26] LABS: ALB/GLOB Ratio 0.4 RATIO (0.9-2.4); AST(SGOT) 47 U/L (15-37); Alanine Aminotransfer ALT/SGPT 48 U/L (16-61); Albumin, Serum 1.5 g/dL (3.2-5.0); Alkaline Phosphatase 130 U/L (45-117); Anion Gap 7 (5-15); BUN 37 mg/dL (7-18); BUN/Creat Ratio 29.8 RATIO (10-20); Calcium,Total 7.7 mg/dL (8.5-10.1); Chloride 123 mmol/L (98-107); Creatinine, Serum 1.24 mg/dL (0.70-1.30); EST Glomerular Filtration Rate 65 mL/min (>60); Est Glom Filt Rate - Afr Amer 78 mL/min (>60); Estimated Creatinine Clearance 62.17 ml/min; Globulin 3.8 g/dL (2.2-4.2); Glucose 85 mg/dL (74-106); Potassium 3.2 mmol/L (3.5-5.1); Protein, Total 5.3 g/dL (6.4-8.2); Sodium Level 152 mmol/L (136-145)
[2020-06-27 05:39] LABS: Atypical Lymphocyte 1+ %; Differential Comment SCANNED
--- NOTE | 2020-06-27 06:18 | PN_ITS ---
Subjective: Patient did well overnight. No acute issues were reported. Patient has been more interactive per nursing, but unable to answer questions. No supplemental oxygen has been required. Patient has had good urine output. No severe withdrawal has been reported. General: - - Opens eyes to voice. Appears older than stated age. Multiple tattoos. HEENT: Atraumatic, PERRLA, EOMI, Normocephalic, - - Slight scleral injection, but improving Oral: Moist Mucosa, No Gingival or Mucosal Lesions/ Ulcerations Neck: Supple, No JVD, No Nodes, Trachea Midline Lungs: Clear to auscultation, No rhonchi, No wheeze, No rales Cardiovascular: Regular rate, Regular Rhythm, Normal S1, Normal S2, No murmurs, No rub noted, No Gallop Abdomen: Bowel Sounds Present, Soft, Non Tender, Non-Distended Extremities: No clubbing, No cyanosis, No edema Skin: - - Multiple punctate ulcerations noted throughout the skin Musculoskeletal: No Tenderness to Palpation of Joints or Extremities Lymphatic: No Cervical, Supraclavicular, or Inguinal Adenopathy Neurological: Cranial nerves II-XII grossly intact, Neuro grossly intact - Compliance with commands improving Psych/Mental Status: Flat Affect, Restless Vital Signs Temp Pulse Resp BP Pulse Ox 37.7 C H 74 37 H 128/76 H 96 06/27/20 06:00 06/27/20 06:00 06/27/20 06:00 06/27/20 06:00 06/27/20 06:00 Oxygen Flow Rate (L/min) 2 Oxygen Delivery Method Room Air Weight: 68.402 kg Body Mass Index (BMI) 24.5 Finger Stick Blood Glucose 118 Intake and Output for Last 24 Hours 06/25/20 06/26/20 06/27/20 23:59 23:59 23:59 Intake Total 1931. / 1931. 2161.67 / 2161.67 1251.67 / 1251.67 Output Total 1340 / 1540 425 / 425 Balance 1931. / 1931. 821.67 / 621.67 826.67 / 826.67 Labs (Last 48 Hours) 06/25/20 06/25/20 06/25/20 21:34 21:34 21:34 WBC 17.8 H Corrected WBC RBC 4.94 Hgb 14.3 Hct 44.7 MCV 90.5 MCH 28.9 MCHC 32.0 RDW Std Deviation 49.9 H RDW Coeff of Re 15.1 H Plt Count 237 MPV 9.9 Immature Gran % (Auto) 1.100 H Neut % (Auto) 92.6 H Lymph % (Auto) 2.2 L [place] % (Auto) 2.9 Eos % (Auto) 0.8 Baso % (Auto) 0.4 Absolute Neuts (auto) 16.5 H Absolute Lymphs (auto) 0.39 L Total Counted Neutrophils % (Manual) Band Neutrophils % Lymphocytes % (Manual) Monocytes % (Manual) Eosinophils % (Manual) Basophils % (Manual) Metamyelocytes % Myelocytes % Promyelocytes % Blast Cells % Plasma Cell % (Manual) Other Cells % Nucleated RBC % 0.2 Nucleated RBCs/100 WBC Differential Comment SCANNED Diff Path Review Hypersegmented Neuts Atypical Lymphocytes Reactive Lymphocytes Smudge Cells Toxic Granulation Toxic Vacuolation Dohle Bodies Noemi Rods Platelet Estimate Plt Morphology Comment RBC Morphology Polychromasia Hypochromasia Poikilocytosis Basophilic Stippling Anisocytosis Microcytosis Macrocytosis Spherocytes Sickle Cells Target Cells Tear Drop Cells Ovalocytes Stomatocytes [place] Bodies Coreen Cells Bite Cells Crenated Cell Acanthocytes (Spur) Rouleaux Schistocytes PT 15.3 H INR 1.3 APTT 36.6 H Sodium 143 Potassium 4.4 Chloride 109 H Carbon Dioxide 22.0 Anion Gap 12 BUN 54 H Creatinine 4.16 H Estim Creat Clear Calc 18.53 Est GFR (MDRD) Af Amer 19 L Est GFR (MDRD) Non-Af 16 L BUN/Creatinine Ratio 13.0 Glucose 106 Lactic Acid Calcium 8.5 Total Bilirubin 1.90 H AST 129 H ALT 70 H Alkaline Phosphatase 233 H Total Creatine Kinase Troponin I 0.207 H Total Protein 6.9 Albumin 2.3 L Globulin 4.6 H Albumin/Globulin Ratio 0.5 L Urine Color Urine Clarity Urine pH Ur Specific [place] Urine Protein Urine Glucose (UA) Urine Ketones Urine Occult Blood Urine Nitrite Urine Bilirubin Urine Urobilinogen Ur Leukocyte Esterase Urine RBC Urine WBC Ur Squamous Epith Cells Urine Bacteria Urine Mucus Urine Opiates Screen Urine Methadone Screen Ur Barbiturates Screen Ur Phencyclidine Scrn Ur Amphetamines Screen U Methamphetamin-MDMA U Benzodiazepines Scrn Urine Cocaine Screen U Cannabinoids Screen Ur Drug Screen Comment MRSA (PCR) POC Glucose 06/25/20 06/25/20 06/25/20 21:34 21:34 21:50 WBC Corrected WBC RBC Hgb Hct MCV MCH MCHC RDW Std Deviation RDW Coeff of Re Plt Count MPV Immature Gran % (Auto) Neut % (Auto) Lymph % (Auto) [place] % (Auto) Eos % (Auto) Baso % (Auto) Absolute Neuts (auto) Absolute Lymphs (auto) Total Counted Neutrophils % (Manual) Band Neutrophils % Lymphocytes % (Manual) Monocytes % (Manual) Eosinophils % (Manual) Basophils % (Manual) Metamyelocytes % Myelocytes % Promyelocytes % Blast Cells % Plasma Cell % (Manual) Other Cells % Nucleated RBC % Nucleated RBCs/100 WBC Differential Comment Diff Path Review Hypersegmented Neuts Atypical Lymphocytes Reactive Lymphocytes Smudge Cells Toxic Granulation Toxic Vacuolation Dohle Bodies Noemi Rods Platelet Estimate Plt Morphology Comment RBC Morphology Polychromasia Hypochromasia Poikilocytosis Basophilic Stippling Anisocytosis Microcytosis Macrocytosis Spherocytes Sickle Cells Target Cells Tear Drop Cells Ovalocytes Stomatocytes [place] Bodies [place] Cells Bite Cells Crenated Cell Acanthocytes (Spur) Rouleaux Schistocytes PT INR APTT Sodium Potassium Chloride Carbon Dioxide Anion Gap BUN Creatinine Estim Creat Clear Calc Est GFR (MDRD) Af Amer Est GFR (MDRD) Non-Af BUN/Creatinine Ratio Glucose Lactic Acid 3.5 H* Calcium Total Bilirubin AST ALT Alkaline Phosphatase Total Creatine Kinase 2298 H Troponin I Total Protein Albumin Globulin Albumin/Globulin Ratio Urine Color [place] Urine Clarity Clear Urine pH 7.0 Ur Specific [place] 1.005 Urine Protein 30 H Urine Glucose (UA) Normal Urine Ketones 5 H Urine Occult Blood 10 H Urine Nitrite Negative Urine Bilirubin 1 H Urine Urobilinogen 4 H Ur Leukocyte Esterase 25 H Urine RBC 0 SEEN Urine WBC 0-5 SEEN Ur Squamous Epith Cells 0 SEEN Urine Bacteria 0 SEEN Urine Mucus 0 SEEN Urine Opiates Screen Urine Methadone Screen Ur Barbiturates Screen Ur Phencyclidine Scrn Ur Amphetamines Screen U Methamphetamin-MDMA U Benzodiazepines Scrn Urine Cocaine Screen U Cannabinoids Screen Ur Drug Screen Comment MRSA (PCR) POC Glucose 06/25/20 06/25/20 06/26/20 21:50 22:13 00:30 WBC Corrected WBC RBC Hgb Hct MCV MCH MCHC RDW Std Deviation RDW Coeff of Re Plt Count MPV Immature Gran % (Auto) Neut % (Auto) Lymph % (Auto) [place] % (Auto) Eos % (Auto) Baso % (Auto) Absolute Neuts (auto) Absolute Lymphs (auto) Total Counted Neutrophils % (Manual) Band Neutrophils % Lymphocytes % (Manual) Monocytes % (Manual) Eosinophils % (Manual) Basophils % (Manual) Metamyelocytes % Myelocytes % Promyelocytes % Blast Cells % Plasma Cell % (Manual) Other Cells % Nucleated RBC % Nucleated RBCs/100 WBC Differential Comment Diff Path Review Hypersegmented Neuts Atypical Lymphocytes Reactive Lymphocytes Smudge Cells Toxic Granulation Toxic Vacuolation Dohle Bodies Noemi Rods Platelet Estimate Plt Morphology Comment RBC Morphology Polychromasia Hypochromasia Poikilocytosis Basophilic Stippling Anisocytosis Microcytosis Macrocytosis Spherocytes Sickle Cells Target Cells Tear Drop Cells Ovalocytes Stomatocytes [place] Bodies Coreen Cells Bite Cells Crenated Cell Acanthocytes (Spur) Rouleaux Schistocytes PT INR APTT Sodium Potassium Chloride Carbon Dioxide Anion Gap BUN Creatinine Estim Creat Clear Calc Est GFR (MDRD) Af Amer Est GFR (MDRD) Non-Af BUN/Creatinine Ratio Glucose Lactic Acid Calcium Total Bilirubin AST ALT Alkaline Phosphatase Total Creatine Kinase Troponin I Total Protein Albumin Globulin Albumin/Globulin Ratio Urine Color Urine Clarity Urine pH Ur Specific [place] Urine Protein Urine Glucose (UA) Urine Ketones Urine Occult Blood Urine Nitrite Urine Bilirubin Urine Urobilinogen Ur Leukocyte Esterase Urine RBC Urine WBC Ur Squamous Epith Cells Urine Bacteria Urine Mucus Urine Opiates Screen POSITIVE H Urine Methadone Screen NEGATIVE Ur Barbiturates Screen NEGATIVE Ur Phencyclidine Scrn NEGATIVE Ur Amphetamines Screen POSITIVE H U Methamphetamin-MDMA NEGATIVE U Benzodiazepines Scrn NEGATIVE Urine Cocaine Screen NEGATIVE U Cannabinoids Screen NEGATIVE Ur Drug Screen Comment MRSA (PCR) Negative POC Glucose 118 H 06/26/20 06/26/20 06/26/20 01:26 01:30 04:30 WBC Cancelled Corrected WBC Cancelled RBC Cancelled Hgb Cancelled Hct Cancelled MCV Cancelled MCH Cancelled MCHC Cancelled RDW Std Deviation Cancelled RDW Coeff of Re Cancelled Plt Count Cancelled MPV Cancelled Immature Gran % (Auto) Cancelled Neut % (Auto) Cancelled Lymph % (Auto) Cancelled [place] % (Auto) Cancelled Eos % (Auto) Cancelled Baso % (Auto) Cancelled Absolute Neuts (auto) Cancelled Absolute Lymphs (auto) Cancelled Total Counted Cancelled Neutrophils % (Manual) Cancelled Band Neutrophils % Cancelled Lymphocytes % (Manual) Cancelled Monocytes % (Manual) Cancelled Eosinophils % (Manual) Cancelled Basophils % (Manual) Cancelled Metamyelocytes % Cancelled Myelocytes % Cancelled Promyelocytes % Cancelled Blast Cells % Cancelled Plasma Cell % (Manual) Cancelled Other Cells % Cancelled Nucleated RBC % Cancelled Nucleated RBCs/100 WBC Cancelled Differential Comment Cancelled Diff Path Review Cancelled Hypersegmented Neuts Cancelled Atypical Lymphocytes Cancelled Reactive Lymphocytes Cancelled Smudge Cells Cancelled Toxic Granulation Cancelled Toxic Vacuolation Cancelled Dohle Bodies Cancelled Noemi Rods Cancelled Platelet Estimate Cancelled Plt Morphology Comment Cancelled RBC Morphology Cancelled Polychromasia Cancelled Hypochromasia Cancelled Poikilocytosis Cancelled Basophilic Stippling Cancelled Anisocytosis Cancelled Microcytosis Cancelled Macrocytosis Cancelled Spherocytes Cancelled Sickle Cells Cancelled Target Cells Cancelled Tear Drop Cells Cancelled Ovalocytes Cancelled Stomatocytes Cancelled [place] Bodies Cancelled Coreen Cells Cancelled Bite Cells Cancelled Crenated Cell Cancelled Acanthocytes (Spur) Cancelled Rouleaux Cancelled Schistocytes Cancelled PT INR APTT Sodium Potassium Chloride Carbon Dioxide Anion Gap BUN Creatinine Estim Creat Clear Calc Est GFR (MDRD) Af Amer Est GFR (MDRD) Non-Af BUN/Creatinine Ratio Glucose Lactic Acid 1.6 Calcium Total Bilirubin AST ALT Alkaline Phosphatase Total Creatine Kinase Troponin I 0.191 H Total Protein Albumin Globulin Albumin/Globulin Ratio Urine Color Urine Clarity Urine pH Ur Specific [place] Urine Protein Urine Glucose (UA) Urine Ketones Urine Occult Blood Urine Nitrite Urine Bilirubin Urine Urobilinogen Ur Leukocyte Esterase Urine RBC Urine WBC Ur Squamous Epith Cells Urine Bacteria Urine Mucus Urine Opiates Screen Urine Methadone Screen Ur Barbiturates Screen Ur Phencyclidine Scrn Ur Amphetamines Screen U Methamphetamin-MDMA U Benzodiazepines Scrn Urine Cocaine Screen U Cannabinoids Screen Ur Drug Screen Comment MRSA (PCR) POC Glucose 06/26/20 06/26/20 06/26/20 04:30 04:30 05:13 WBC 12.0 H Corrected WBC RBC 4.14 L Hgb 11.9 L Hct 37.3 L MCV 90.1 MCH 28.7 MCHC 31.9 L RDW Std Deviation 50.6 H RDW Coeff of Re 15.1 H Plt Count 128 L MPV 9.5 Immature Gran % (Auto) 0.800 Neut % (Auto) 91.3 H Lymph % (Auto) 4.7 L [place] % (Auto) 2.7 Eos % (Auto) 0.0 Baso % (Auto) 0.5 Absolute Neuts (auto) 11.0 H Absolute Lymphs (auto) 0.56 L Total Counted Neutrophils % (Manual) Band Neutrophils % Lymphocytes % (Manual) Monocytes % (Manual) Eosinophils % (Manual) Basophils % (Manual) Metamyelocytes % Myelocytes % Promyelocytes % Blast Cells % Plasma Cell % (Manual) Other Cells % Nucleated RBC % 0 Nucleated RBCs/100 WBC Differential Comment SCANNED Diff Path Review Hypersegmented Neuts Atypical Lymphocytes 1+ Reactive Lymphocytes Smudge Cells Toxic Granulation Toxic Vacuolation Dohle Bodies Noemi Rods Platelet Estimate Plt Morphology Comment RBC Morphology Polychromasia Hypochromasia Poikilocytosis Basophilic Stippling Anisocytosis Microcytosis Macrocytosis Spherocytes Sickle Cells Target Cells Tear Drop Cells Ovalocytes Stomatocytes [place] Bodies [place] Cells Bite Cells Crenated Cell Acanthocytes (Spur) Rouleaux Schistocytes PT INR APTT Sodium Cancelled Potassium Cancelled Chloride Cancelled Carbon Dioxide Cancelled Anion Gap Cancelled BUN Cancelled Creatinine Cancelled Estim Creat Clear Calc Cancelled Est GFR (MDRD) Af Amer Cancelled Est GFR (MDRD) Non-Af Cancelled BUN/Creatinine Ratio Cancelled Glucose Cancelled Lactic Acid Calcium Cancelled Total Bilirubin Cancelled AST Cancelled ALT Cancelled Alkaline Phosphatase Cancelled Total Creatine Kinase Cancelled Troponin I Cancelled Total Protein Cancelled Albumin Cancelled Globulin Cancelled Albumin/Globulin Ratio Cancelled Urine Color Urine Clarity Urine pH Ur Specific [place] Urine Protein Urine Glucose (UA) Urine Ketones Urine Occult Blood Urine Nitrite Urine Bilirubin Urine Urobilinogen Ur Leukocyte Esterase Urine RBC Urine WBC Ur Squamous Epith Cells Urine Bacteria Urine Mucus Urine Opiates Screen Urine Methadone Screen Ur Barbiturates Screen Ur Phencyclidine Scrn Ur Amphetamines Screen U Methamphetamin-MDMA U Benzodiazepines Scrn Urine Cocaine Screen U Cannabinoids Screen Ur Drug Screen Comment MRSA (PCR) POC Glucose 06/26/20 06/26/20 06/27/20 05:13 06:22 05:00 WBC 12.8 H Corrected WBC RBC 3.68 L Hgb 10.8 L Hct 33.8 L MCV 91.8 MCH 29.3 MCHC 32.0 RDW Std Deviation 51.5 H RDW Coeff of Re 15.3 H Plt Count 108 L MPV 10.4 Immature Gran % (Auto) 0.900 Neut % (Auto) 93.6 H Lymph % (Auto) 3.8 L [place] % (Auto) 1.3 Eos % (Auto) 0.1 Baso % (Auto) 0.3 Absolute Neuts (auto) 12.0 H Absolute Lymphs (auto) 0.48 L Total Counted Neutrophils % (Manual) Band Neutrophils % Lymphocytes % (Manual) Monocytes % (Manual) Eosinophils % (Manual) Basophils % (Manual) Metamyelocytes % Myelocytes % Promyelocytes % Blast Cells % Plasma Cell % (Manual) Other Cells % Nucleated RBC % 0 Nucleated RBCs/100 WBC Differential Comment SCANNED Diff Path Review Hypersegmented Neuts Atypical Lymphocytes 1+ Reactive Lymphocytes Smudge Cells Toxic Granulation Toxic Vacuolation Dohle Bodies Noemi Rods Platelet Estimate Plt Morphology Comment RBC Morphology Polychromasia Hypochromasia Poikilocytosis Basophilic Stippling Anisocytosis Microcytosis Macrocytosis Spherocytes Sickle Cells Target Cells Tear Drop Cells Ovalocytes Stomatocytes [place] Bodies Coreen Cells Bite Cells Crenated Cell Acanthocytes (Spur) Rouleaux Schistocytes PT INR APTT Sodium Cancelled 146 H Potassium Cancelled 3.5 Chloride Cancelled 117 H Carbon Dioxide Cancelled 21.0 Anion Gap Cancelled 8 BUN Cancelled 43 H Creatinine Cancelled 2.60 H Estim Creat Clear Calc Cancelled 29.65 Est GFR (MDRD) Af Amer Cancelled 33 L Est GFR (MDRD) Non-Af Cancelled 28 L BUN/Creatinine Ratio Cancelled 16.5 Glucose Cancelled 125 H Lactic Acid Calcium Cancelled 7.0 L Total Bilirubin Cancelled 1.60 H AST Cancelled 69 H ALT Cancelled 51 Alkaline Phosphatase Cancelled 157 H Total Creatine Kinase Cancelled 1020 H Troponin I Cancelled 0.108 H Total Protein Cancelled 5.1 L Albumin Cancelled 1.6 L Globulin Cancelled 3.5 Albumin/Globulin Ratio Cancelled 0.5 L Urine Color Urine Clarity Urine pH Ur Specific [place] Urine Protein Urine Glucose (UA) Urine Ketones Urine Occult Blood Urine Nitrite Urine Bilirubin Urine Urobilinogen Ur Leukocyte Esterase Urine RBC Urine WBC Ur Squamous Epith Cells Urine Bacteria Urine Mucus Urine Opiates Screen Urine Methadone Screen Ur Barbiturates Screen Ur Phencyclidine Scrn Ur Amphetamines Screen U Methamphetamin-MDMA U Benzodiazepines Scrn Urine Cocaine Screen U Cannabinoids Screen Ur Drug Screen Comment MRSA (PCR) POC Glucose 06/27/20 05:00 WBC Corrected WBC RBC Hgb Hct MCV MCH MCHC RDW Std Deviation RDW Coeff of Re Plt Count MPV Immature Gran % (Auto) Neut % (Auto) Lymph % (Auto) [place] % (Auto) Eos % (Auto) Baso % (Auto) Absolute Neuts (auto) Absolute Lymphs (auto) Total Counted Neutrophils % (Manual) Band Neutrophils % Lymphocytes % (Manual) Monocytes % (Manual) Eosinophils % (Manual) Basophils % (Manual) Metamyelocytes % Myelocytes % Promyelocytes % Blast Cells % Plasma Cell % (Manual) Other Cells % Nucleated RBC % Nucleated RBCs/100 WBC Differential Comment Diff Path Review Hypersegmented Neuts Atypical Lymphocytes Reactive Lymphocytes Smudge Cells Toxic Granulation Toxic Vacuolation Dohle Bodies Noemi Rods Platelet Estimate Plt Morphology Comment RBC Morphology Polychromasia Hypochromasia Poikilocytosis Basophilic Stippling Anisocytosis Microcytosis Macrocytosis Spherocytes Sickle Cells Target Cells Tear Drop Cells Ovalocytes Stomatocytes [place] Bodies [place] Cells Bite Cells Crenated Cell Acanthocytes (Spur) Rouleaux Schistocytes PT INR APTT Sodium 152 H Potassium 3.2 L Chloride 123 H Carbon Dioxide 22.0 Anion Gap 7 BUN 37 H Creatinine 1.24 Estim Creat Clear Calc 62.17 Est GFR (MDRD) Af Amer 78 Est GFR (MDRD) Non-Af 65 BUN/Creatinine Ratio 29.8 H Glucose 85 Lactic Acid Calcium 7.7 L Total Bilirubin 1.00 AST 47 H ALT 48 Alkaline Phosphatase 130 H Total Creatine Kinase Troponin I Total Protein 5.3 L Albumin 1.5 L Globulin 3.8 Albumin/Globulin Ratio 0.4 L Urine Color Urine Clarity Urine pH Ur Specific [place] Urine Protein Urine Glucose (UA) Urine Ketones Urine Occult Blood Urine Nitrite Urine Bilirubin Urine Urobilinogen Ur Leukocyte Esterase Urine RBC Urine WBC Ur Squamous Epith Cells Urine Bacteria Urine Mucus Urine Opiates Screen Urine Methadone Screen Ur Barbiturates Screen Ur Phencyclidine Scrn Ur Amphetamines Screen U Methamphetamin-MDMA U Benzodiazepines Scrn Urine Cocaine Screen U Cannabinoids Screen Ur Drug Screen Comment MRSA (PCR) POC Glucose Microbiology 06/25/20 21:34 Blood Culture (Wb) - Anticubital Left Bacteria Detection (PCR) - Final Staphylococcus aureus 06/25/20 21:34 Blood Culture (Wb) - Anticubital Left Blood Culture - Preliminary 06/25/20 23:00 Blood Culture (Wb) - Anticubital Right Blood Culture - Preliminary 06/25/20 22:03 Mucosa - Nasopharyngeal SARS-CoV-2 Antigen (Rapid) - Final Medical Necessity - Tobacco Use Smoking Status: Current every day smoker Tobacco Use: Cigarettes Assessment/Plan All Active Problems (Last Updated 06/26/20 @ 12:[address] Jim Rodríguez MD) Encephalopathy (Acute) Bacteremia (Acute) Severe sepsis (Acute) Rhabdomyolysis (Acute) MALINDA (acute kidney injury) (Acute) RECOMMENDATIONS: 1. Consider infectious disease evaluation 2. Transition IV fluids to D5W 3. Monitor for withdrawal 4. Possibly narrow antibiotic spectrum pending culture results 5. Delirium protocol IMPRESSIONS: 1. Severe sepsis secondary to possible IV drug use Unclear if patient has a transient bacteremia or deep-seated infection. Patient did have significant fever and tachycardia on presentation along with leukocytosis and bandemia. Patient does have a history of IV drug use, so endocarditis would be a concern. Await species and sensitivity of gram-positive cocci from blood cultures. Patient is on empiric antibiotics at this time. Some concern for septic hip as patient reportedly did not walk for several days prior to presentation. Patient has discomfort with any movement at this time, so it is difficult to do an exam 2. Acute rhabdomyolysis Medical suspicion for rhabdomyolysis secondary to unresponsiveness associated with IV drug use. CKs do appear to be responding to fluid resuscitation. However, will transition to D5W given the development of hypernatremia and hyperchloremia secondary to normal saline. Patient is not showing any signs of hypoxic respiratory failure related to fluids, will have to watch closely. Patient does have a history of Takotsubo. 3. Acute kidney injury Resolving. Clinical suspicion for prerenal etiology. Baseline creatinine of 1. Patient does have some elevated CK, but this does not appear to be to the level to induce acute kidney injury. Continue aggressive fluid resuscitation and watch urine output. No indication for alkalinization of the urine. 4. History of IV drug use/hepatitis C/history of Takotsubo/tobacco abuse/history of COPD/history of non-Hodgkin's lymphoma in remission Complicates care, management, recovery and prognosis. We will have to watch for withdrawal symptoms. Inpatient E&M: 42626 Subs Hosp L3
[2020-06-27] MEDS: 0.9% Saline Lock 10 ML Syringe IV ×2 (07:50→17:53)
--- NOTE | 2020-06-27 08:58 | RAD_ITS ---
STUDY: X-RAY - PELVIS AND BILATERAL HIPS REASON FOR EXAM: Male, 55 years old. bacteremia, bilateral hip pain TECHNIQUE: 5 views of the hips and pelvis were obtained. COMPARISON: 06/15/2020. FINDINGS: Rectal thermal monitor. Uncomplicated appearing left hip arthroplasty. 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 No acute fracture line. No acute dislocation. Normal bowel gas pattern. Surgical clips overlie the left inguinal canal/scrotum. RAD/Hips B/L min 2 views w/ Pelvis IMPRESSION: Mild/moderate right hip joint space narrowing with femoral head AVN Uncomplicated appearing left hip arthroplasty Electronically Signed: Gonzalo Burns DO at 9:44 EST Tel , Service support ,
--- NOTE | 2020-06-27 09:03 | PN_ITS ---
Patient Problems: Active and Suspected Problems (Last Updated 06/26/20 @ 12:[address] Jim Rodríguez MD) Severe sepsis (Acute) Rhabdomyolysis (Acute) MALINDA (acute kidney injury) (Acute) Subjective: Chief complaint: Follow-up after admission for change in mental status/encephalopathy, severe sepsis, acute kidney injury, rhabdomyolysis, abnormal cardiac enzymes and bacteremia. Patient seen and examined. No acute events overnight. This morning, he is more awake, interactive. Still not able to answer questions appropriately. He is having spikes of low-grade fever, blood pressure and heart rate are maintained, pulse ox is 96% on room air. - Physical Exam Vitals/I&O's: Vital Signs Temp Pulse Resp BP Pulse Ox 99.9 F H 74 37 H 128/76 H 96 06/27/20 06:00 06/27/20 06:00 06/27/20 06:00 06/27/20 06:00 06/27/20 06:00 Oxygen Flow Rate (L/min) 2 Oxygen Delivery Method Room Air Weight: 150 lb 12.8 oz Body Mass Index (BMI) 24.5 Finger Stick Blood Glucose 118 Intake and Output for Last 24 Hours 06/25/20 06/26/20 06/27/20 23:59 23:59 23:59 Intake Total 1932.5 / 1932.5 2161.67 / 2161.67 1768.34 / 1768.34 Output Total 1340 / 1540 505 / 505 Balance 1932.5 / 1932.5 821.67 / 621.67 1263.34 / 1263.34 General: Alert, Cooperative, No apparent distress, - - Sleepy but arousable, more interactive. HEENT: Atraumatic, PERRLA, EOMI, Normocephalic Oral: Moist Mucosa, No Gingival or Mucosal Lesions/ Ulcerations Neck: Supple, No JVD, Negative Carotid Bruits, Trachea Midline, Thyroid Normal Size and Texture Lungs: Clear to auscultation, Normal air movement, No rhonchi, No wheeze, No rales, Diminished Cardiovascular: Regular rate, Regular Rhythm, Normal S1, Normal S2, PMI Normal Abdomen: Bowel Sounds Present, Soft, Non Tender, Non-Distended, No Hepato- splenomegaly, Obese Extremities: No clubbing, No cyanosis, Edema - Trace edema. Skin: No breakdown, Rash Present Lymphatic: No Cervical, Supraclavicular, or Inguinal Adenopathy Neurological: Cranial nerves II-XII grossly intact, Neuro grossly intact Psych/Mental Status: Flat Affect Microbiology Past 72 Hours 06/25/20 23:00 Blood Culture (Wb) - Anticubital Right Blood Culture - Final Staphylococcus aureus 06/25/20 21:34 Blood Culture (Wb) - Anticubital Left Bacteria Detection (P CR) - Final Staphylococcus aureus 06/25/20 21:34 Blood Culture (Wb) - Anticubital Left Blood Culture - Preliminary Staphylococcus aureus 06/25/20 22:03 Mucosa - Nasopharyngeal SARS-CoV-2 Antigen (Rapid) - Final Laboratory Results 06/27/20 05:00: WBC 12.8 H, RBC 3.68 L, Hgb 10.8 L, Hct 33.8 L, MCV 91.8, MCH 29.3, MCHC 32.0, RDW Std Deviation 51.5 H, RDW Coeff of Re 15.3 H, Plt Count 108 L, MPV 10.4, Immature Gran % (Auto) 0.900, Neut % (Auto) 93.6 H, Lymph % (Auto) 3.8 L, [place] % (Auto) 1.3, Eos % (Auto) 0.1, Baso % (Auto) 0.3, Absolute Neuts (auto) 12.0 H, Absolute Lymphs (auto) 0.48 L, Nucleated RBC % 0, Differential Comment SCANNED, Atypical Lymphocytes 1+ 06/27/20 05:00: Sodium 152 H, Potassium 3.2 L, Chloride 123 H, Carbon Dioxide 22.0, Anion Gap 7, BUN 37 H, Creatinine 1.24, Estim Creat Clear Calc 62.17, Est GFR (MDRD) Af Amer 78, Est GFR (MDRD) Non-Af 65, BUN/Creatinine Ratio 29.8 H, Glucose 85, Calcium 7.7 L, Total Bilirubin 1.00, AST 47 H, ALT 48, Alkaline Phosphatase 130 H, Total Protein 5.3 L, Albumin 1.5 L, Globulin 3.8, Albumin/Globulin Ratio 0.4 L Microbiology 06/25/20 23:00 Blood Culture (Wb) - Anticubital Right Blood Culture - Final Staphylococcus aureus 06/25/20 21:34 Blood Culture (Wb) - Anticubital Left Bacteria Detection (PCR) - Final Staphylococcus aureus 06/25/20 21:34 Blood Culture (Wb) - Anticubital Left Blood Culture - Preliminary Staphylococcus aureus 06/25/20 22:03 Mucosa - Nasopharyngeal SARS-CoV-2 Antigen (Rapid) - Final Current Medications Acetaminophen (Acetaminophen 650 Mg Suppository) 650 mg RECTAL Q6H PRN PRN PRN Reason: TEMP > 100.5 F Last Admin: 06/27/20 02:59 Dose: 650 mg Documented by: Erythromycin (Erythromycin Base 1 Opth.Tube) 1 applic EACH EYE TID [facility] Stop: 07/01/20 14:00 Last Admin: 06/27/20 05:08 Dose: 1 applic Documented by: Heparin Sodium (Porcine) (Heparin Injection (Vial) 5,000 Unit/Ml Vial) 5,000 unit SC Q8 [facility] Last Admin: 06/27/20 05:08 Dose: 5,000 unit Documented by: Vancomycin IV Pharmacy to Dose (1 ea/ Sodium Chloride) 500 mls @ 250 mls/hr IV PRN PRN; Protocol PRN Reason: Rx to Dose Sodium Chloride () 250 mls @ 15 mls/hr IV .[id number] PRN PRN Reason: Saline Flush Sodium Chloride () 250 mls @ 15 mls/hr IV .[id number] PRN PRN Reason: Additional IVPB Infusion Vancomycin HCl (Vancomycin) 1,000 mg in 200 mls @ 200 mls/hr IV Q24H [facility] Last Infusion: 06/27/20 01:00 Dose: Infused Documented by: Piperacillin Sod/Tazobactam (Sod 3.375 gm/ Sodium Chloride) 50 mls @ 12.5 mls/hr IV Q8 [facility] Last Admin: 06/27/20 05:07 Dose: 12.5 mls/hr Documented by: Dextrose () 1,000 mls @ 75 mls/hr IV .[id number] [facility] Last Admin: 06/27/20 06:10 Dose: 75 mls/hr Documented by: Potassium Chloride () 10 meq in 100 mls @ 100 mls/hr IV BOLUS Q1H [facility] Stop: 06/27/20 10:59 Ondansetron HCl (Ondansetron 4 Mg/2 Ml Vial) 4 mg IV Q8H PRN PRN PRN Reason: NAUSEA/VOMITING Sodium Chloride (0.9% Saline Lock 10 Ml Syringe) 10 - 40 ml IV UD PRN PRN Reason: SALINE FLUSH Last Admin: 06/27/20 07:50 Dose: 10 ml Documented by: Medical Necessity - Tobacco Use Smoking Status: Current every day smoker Tobacco Use: Cigarettes Assessment/Plan All Active Problems (Last Updated 06/26/20 @ 12:[address] Jim Rodríguez MD) Encephalopathy (Acute) Bacteremia (Acute) Severe sepsis (Acute) Rhabdomyolysis (Acute) MALINDA (acute kidney injury) (Acute) This is a 55 years old male patient presented to the emergency room by squad because of family members state that patient has been using heroin and methamphetamines 3 days ago, went to bed and he had not gotten up since then, found to have acute encephalopathy, acute kidney injury secondary to rhabdomyolysis, severe sepsis secondary to bacteremia. #1 severe sepsis: Attributed to bacteremia in the setting of IV drug use. He is on IV vancomycin and Zosyn. He still having spikes of low-grade fever, WBC remain the same as yesterday.blood pressure and heart rate are stable. Blood culture revealed staph aureus, final is pending. Chest x-ray showed no acute findings. Urinalysis showed no evidence of acute cystitis. COVID-19 antigen came back negative. 2D echocardiogram revealed ejection fraction of 60%, normal LV size and function, no evidence of vegetations. Plan: Continue same treatment, infectious disease consult, may need to have SHAUN done, repeat CBC and CMP tomorrow morning, PT OT evaluation and treatment, transfer to PCU. #2 acute kidney injury: Due to rhabdomyolysis, prerenal. Baseline kidney function is normal. Today's creatinine is 1.24, BUN is 37. Sodium is 152 and potassium is 3.2. Kidney function improved. Patient is off IV fluids. Plan to replace potassium with IV potassium chloride, start diet after speech therapy ev aluation, repeat CMP tomorrow morning. #3 rhabdomyolysis: Secondary to muscle damage due to her bedridden for long time. He is off IV fluids at this time. CPK is trending down. Plan to repeat CPK tomorrow morning. #4 abnormal cardiac enzymes: Likely due to demand ischemia secondary to #1 and 2. EKG revealed no acute hemic changes. Troponin is trending down. Patient had a history of Takotsubo cardiomyopathy, no acute CHF. 2D echocardiogram reviewed as above, ejection fraction is normal, no wall motion abnormalities. #5 COPD: Currently, he is on room air. Stable. #6 history of IV drug use: Urine drug screen is positive for opioids and amphetamines. #7 chronic hepatitis C: Liver transaminases are chronically elevated, alk phos is back to normal today. #8 history of Takotsubo cardiomyopathy: Without evidence of acute CHF. 2D echocardiogram reviewed as above. #9 DVT prophylaxis: Change to subcu heparin. This note was generated with [employer] dictation software. It may contain incorrect words, spelling, and punctuation that were not noted in checking the note before signing. Inpatient E&M: 77801 Subs Hosp L2
[2020-06-27 09:58] LABS: Free T3 < 0.5 pg/mL (2.18-3.98); T4 Free Direct 0.42 ng/dL (0.76-1.46); T4 Total, Thyroxin 2.5 ug/dL (4.5-12.1)
[2020-06-27] MEDS: Potassium Chloride 10mEq/100mL 10 MEQ/100 ML IV.SOLN. 100 MEQ IV BOLUS ×2 (10:20→14:30)
--- NOTE | 2020-06-27 10:55 | CASEMGMT ---
Social Work SW participated in ICU rounds. Pt is more alert however still not able to respond to conversation. After rounds phone call placed to pt son Neil Acosta who is HCPOA. Pt and son are known to this SW from previous visits. Neil agreeable to talk to this SW and provide patient backround. Son confirms that as far as he knows, he is still the HCPOA. HCPOA naming Neil is in pt medical record. Demographics and PCP confirmed. Living Arrangements: Pt lives in an apartment in [place]. Neil states 4 other people had been living with him but yesterday he and his sister went to the home and cleared it out, Everyone has been kicked out and told they are not allowed to live there and the house is currently empty. Neil also states that because of patients hip, he has not been able to get around. SW inquired about who has been helping him and Neil states he and his sister have been assisting as needed. Lnok: Son Neil who is HCPOA. Pt has a daughter who is involved. Pt also has an exwife Tona Acosta. According to son, pt is but still has contact with Tona. Per Neil, Otna assists pt in taking drugs and did not allow pt's roommate to call EMS when pt was unresponsive for three days as pt is on parole and she was fearful of legal ramifications. Neil adamant that Tona's name be removed from contact list and nursing aware that she is to be given no information. Substance Use: Neil states pt uses heroin and meth, along with everyone living in his house and his ex . Neil states ex was still giving pt drugs while he was unresponsive. Per son, pt has a long history of drug abuse and was clean for a short time. He has gone to a few meetings over the years but no other treatment. Mental Health: Son reports Bipolar and anxiety Discharge Plan: Neil states still trying to figure that out but feels due to hip issues pt may need short term stay in SNF. SW explained that SW will speak with pt about discharge plan when he is able to communicate with staff appropriately and he will have to give consent. Neil asking what can be done to keep pt ex away from pt. SW deferred conversation to law enforcement as SW is not familiar with rules of restraining orders. Neil expressing understanding. Plan: demographic sheet updated to remove ex 's name. SW will continue to follow and will speak with pt about drug treatment options as well as appropriate discharge plan when pt is able to converse appropriately. TWYLA Vora
--- NOTE | 2020-06-27 14:23 | PCM.HP.ID ---
Problem List (1) Bacteremia Status: Acute Reason for Consult: bacteremia Consulted by: Dr. Rodríguez History of Present Illness: The patient is a 55 year old M with h/o COPD, ivdu, presented 06/25 after being down for 2-3 days. Denies any drug use. C/o some sternal pain. Fever, encephalopathy, hypoxia, MALINDA on arrival. Started on vanc/zosyn, feeling better. No sick contacts, no new joint pain. Full ROS performed and neg except as noted above. - Medical History Past Medical History (Chronic Problems): Chronic Problems (Last Updated 06/26/20 @ 12:[address] Jim Rodríguez MD) COPD (chronic obstructive pulmonary disease) (Chronic) Nicotine dependence (Chronic) Takotsubo cardiomyopathy (Chronic) Acute systolic CHF (congestive heart failure) (Chronic) Essential hypertension (Chronic) Non-Hodgkin lymphoma in remission (Chronic) Allergies/Adverse Reactions: Allergies methotrexate Adverse Reaction (Verified 06/25/20 21:31) Hives,Rash,Lesions naproxen [From Naprosyn] Adverse Reaction (Verified 06/25/20 21:31) Upset Stomach BEE VENOM Allergy (Uncoded 06/25/20 21:31) Anaphylaxis ROOT BEER Allergy (Uncoded 06/25/20 21:31) Hives Home Medications: Ambulatory Orders Medication Instructions Recorded Levothyroxine [Synthroid] 112 mcg PO DAILY 07/10/16 Albuterol Sulfate [Proventil Hfa] 6.7 gm IH Q4H PRN 10/21/16 Gabapentin [Neurontin] 900 mg PO TIDCM 10/21/16 cyanocobalamin (vitamin B-12) 1,000 syr IM QMONTH 30 Days #1 ml 03/21/18 1,000 mcg/mL injection solution Fluticasone/Vilanterol [Breo 1 ea INHALATION DAILY 02/14/19 Ellipta 200-25 Mcg INH] Montelukast [Singulair] 10 mg PO QHS 02/14/19 Epi Pen (for allergic rxn) 0.3 mg IM X1 06/13/19 lithium carbonate 300 mg 300 mg PO DAILY PRN tab 01/10/20 tablet,extended release prednisone 10 mg tablet 10 mg PO DAILY 01/10/20 Mupirocin [Bactroban] 1 applic TOPICAL TID #1 tube 03/10/20 - Social History SMOKING STATUS:: Current some day smoker Drug Use: heroin Vital Signs Temp Pulse Resp BP Pulse Ox 100.7 F H 103 H 37 H 123/79 H 91 06/27/20 12:00 06/27/20 12:00 06/27/20 12:00 06/27/20 12:00 06/27/20 12:00 Oxygen Flow Rate (L/min) 2 Oxygen Delivery Method Room Air Weight: 68.402 kg Body Mass Index (BMI) 24.5 Finger Stick Blood Glucose 118 Microbiology Past 72 Hours 06/25/20 23:00 Blood Culture - Final Blood Culture (Wb) - Anticubital Right Staphylococcus aureus 06/25/20 21:34 Bacteria Detection (PCR) - Final Blood Culture (Wb) - Anticubital Left Staphylococcus aureus Blood Culture - Preliminary Staphylococcus aureus 06/25/20 22:03 SARS-CoV-2 Antigen (Rapid) - Final Mucosa - Nasopharyngeal Laboratory Tests Past 24 Hrs 06/27/20 06/27/20 06/27/20 05:00 05:00 05:00 WBC 12.8 H RBC 3.68 L Hgb 10.8 L Hct 33.8 L MCV 91.8 MCH 29.3 MCHC 32.0 RDW Std Deviation 51.5 H RDW Coeff of Re 15.3 H Plt Count 108 L MPV 10.4 Immature Gran % (Auto) 0.900 Neut % (Auto) 93.6 H Lymph % (Auto) 3.8 L [place] % (Auto) 1.3 Eos % (Auto) 0.1 Baso % (Auto) 0.3 Absolute Neuts (auto) 12.0 H Absolute Lymphs (auto) 0.48 L Nucleated RBC % 0 Differential Comment SCANNED Atypical Lymphocytes 1+ Sodium 152 H Potassium 3.2 L Chloride 123 H Carbon Dioxide 22.0 Anion Gap 7 BUN 37 H Creatinine 1.24 Estim Creat Clear Calc 62.17 Est GFR (MDRD) Af Amer 78 Est GFR (MDRD) Non-Af 65 BUN/Creatinine Ratio 29.8 H Glucose 85 Calcium 7.7 L Total Bilirubin 1.00 AST 47 H ALT 48 Alkaline Phosphatase 130 H Total Protein 5.3 L Albumin 1.5 L Globulin 3.8 Albumin/Globulin Ratio 0.4 L TSH 11.00 H Free T4 0.42 L Thyroxine (T4) 2.5 L Free T3 pg/dL < 0.5 L - Other Studies Radiology: [] reviewed Other Studies: [] Route of nutrition/ use of supplements: [] Nutritional Intake: [] IV Site: [] Domínguez Catheter: [] - Physical Exam General: Alert, Cooperative, Lethargic, - - oriented x2 HEENT: Atraumatic, PERRLA, EOMI Neck: Supple, No Nodes Lungs: Clear to auscultation, Diminished Cardiovascular: Regular rate, Regular Rhythm Abdomen: Soft, Non Tender, Non-Distended Extremities: No edema Skin: Ulcer/ Wound - multiple wounds on arms and legs, - - no splinter hemorrhages on hands or feet (? one on R 3rd finger) IV Site: Peripheral, without redness Musculoskeletal: No Tenderness to Palpation of Joints or Extremities - lumbar spine pain to palpation, no other joint pain Neurological: Cranial nerves II-XII grossly intact - Assessment/Plan Antibiotics: [] Assessment/Plan: [] Active and Suspected Problems (Last Updated 06/26/20 @ 12:[address] Jim Rodríguez MD) Severe sepsis (Acute) Rhabdomyolysis (Acute) MALINDA (acute kidney injury) (Acute) mssa bacteremia per pcr, presented with severe sepsis, rhabdo, MALINDA, and tox (+) meth and opiates. Improved, on vanc/zosyn, TTE showed no veg. Repeat bcx today. Will order hiv, hep panel, MRI of L-spine due to pain on palpation. Covid Ag neg. CXR clear. Will narrow abx to vanc/cefazolin. Will follow, thank you
--- NOTE | 2020-06-27 15:20 | MRI_ITS ---
We are attempting to reach an attending provider to discuss findings. An addendum with communication details will be sent when the communication is complete. STUDY: MRI LUMBAR SPINE WITH AND WITHOUT CONTRAST REASON FOR EXAM: Male, 55 years old. Sepsis, back pain, IV drug usebest images possible Pt medicated with ativan and still moving, moaning during scan TECHNIQUE: Standardized fat and water weighted pulse sequences were obtained in the sagittal and axial planes. 13ml Dotarem via IV was administered for the contrast portion of the examination. COMPARISON: None FINDINGS: Examination is technically limited due to patient''s ability to cooperate. Postcontrast images are poor quality with no detectable enhancement, possibly due to contrast extravasation. Enhancement cannot be assessed for. Diagnostic information is available. Lumbar spine is aligned. Lumbar vertebra are intact. Sacrum is abnormal, possibly osteomyelitis. This is poorly evaluated. There is left paraspinous soft tissue inflammation extending into the psoas, possibly early abscess formation. There is questionable inflammation in the left lower paraspinous space at the level of L4 and L5 and edema in the posterior paraspinous musculature at L4-L5 and along the sacrum. All this is likely due to infectious myositis. Conus terminates at T12-L1. Cauda equina is severely compressed by a dorsal long segment epidural fluid collection extending from L1-L2 down to L5-S1 with severe thecal sac stenosis. T12-L1: Normal endplates. Normal disc height, hydration and morphology. Normal bilateral facet joints. Normal central canal and bilateral lateral recesses. Normal bilateral intervertebral neural foramina. L1-2: Normal endplates. Normal disc height, hydration and morphology. Normal bilateral facet joints. Normal central canal and bilateral lateral recesses. Normal bilateral intervertebral neural foramina. L2-3: Normal endplates. Normal disc height, hydration and morphology. Normal bilateral facet joints. Normal central canal and bilateral lateral recesses. Normal bilateral intervertebral neural foramina. L3-4: Normal endplates. Normal disc height, hydration and morphology. Normal bilateral facet joints. Normal central canal and bilateral lateral recesses. Normal bilateral intervertebral neural foramina. L4-5: Normal endplates. Normal disc height, hydration and morphology. Normal bilateral facet joints. Normal central canal and bilateral lateral recesses. Normal bilateral intervertebral neural foramina. L5-S1: Normal endplates. Normal disc height, hydration and morphology. Normal bilateral facet joints. Normal central canal and bilateral lateral recesses. Normal bilateral intervertebral neural foramina. MRI/Spine Lumbar W/WO Contrast IMPRESSION: 1. Large dorsal epidural abscess from L1-L2 to L5-S1 with severe thecal sac compression. Emergency neurosurgical consultation is advised. 2. 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 3. Left paraspinous and posterior paraspinous soft tissue infection. 4. Recommend repeat imaging after initial treatment and improvement in patient''s condition and ability to cooperate for further characterization of above abnormalities. Electronically Signed: German Munoz MD at 19:26 EST Tel , Service support ,
--- NOTE | 2020-06-27 15:25 | PCS.PANDOC ---
PANDEMIC DOCUMENTATION INITIATED: Date: 06/27/20 Time: 2630
[2020-06-27 16:14] LABS: HIV - WCH Non-Reactive (Nonreactive)
[2020-06-27] MEDS: LORazepam 2 MG/ML Syringe 1 MG IV (17:53)
--- NOTE | 2020-06-27 20:00 | NURSING ---
DR MARTÍNEZ AT BEDSIDE ASSESSING PATIENT, DUE TO MRI RESULTS. DR IS TOO CALL SON AND ASK ABOUT TRANSFERRING PATIENT TO [facility].
--- NOTE | 2020-06-27 20:32 | PCM.DC.SUM ---
Discharge Date and Diagnosis - Problem List Patient Problems: Active and Suspected Problems (Last Updated 06/26/20 @ 12:[address] Jim Rodríguez MD) Bacteremia (Acute) Severe sepsis (Acute) Rhabdomyolysis (Acute) MALINDA (acute kidney injury) (Acute) Date of Admission: 06/25/20 Date of Discharge: 06/27/20 - Primary Discharge Diagnosis Acute Problems: Active Problems (Last Updated 06/26/20 @ 12:[address] Jim Rodríguez MD) Epidural abscess with probably cauda equina compression Bacteremia (Acute) Severe sepsis (Acute) Rhabdomyolysis (Acute) MALINDA (acute kidney injury) (Acute) - Secondary Discharge Diagnosis Chronic Problems: Chronic Problems (Last Updated 06/26/20 @ 12:[address] Jim Rodríguez MD) COPD (chronic obstructive pulmonary disease) (Chronic) Nicotine dependence (Chronic) Takotsubo cardiomyopathy (Chronic) Acute systolic CHF (congestive heart failure) (Chronic) Essential hypertension (Chronic) Non-Hodgkin lymphoma in remission (Chronic) Hospital Course and Treatment Imaging Results: 06/27/20 15:20 Spine Lumbar W/WO Contrast [MRI] Routine Operations: None Procedures: 2-D Echocardiogram Summary of Care Provided: hpi: The patient is a 55 year old M with a significant history of COPD and Takotsubo cardiomyopathy who presents to the emergency department with unresponsiveness. Reportedly patient has been unresponsive for 3 days. However there is another story that patient was seen taking a shower day before presentation. History was taken from emergency department doctor who took history from EMS. Also history was taken from patient's son Neil Acosta ([phone]). Per patient's son Neil Acosta, he (Neil Acosta) received a call that patient has been unresponsive for 3 days and per his son's story no one was allowed to call the ambulance. His son upon hearing this went to the patient's apartment with his(son) sister. Per son, upon his arrival although the patient was breathing patient did not respond to physical stimulation or voice. Reportedly 3 days ago he used methamphetamine and heroin. Emergency department doctor reported that patient urine was tea colored. Summary: #1 severe sepsis: Initially admitted to the intensive care unit. Severe sepsis attributed to bacteremia in the setting of IV drug use. He was started IV vancomycin and Zosyn. Blood MRSA PCR was negative. Lactic acid was elevated but it trended down. Urinalysis did not show bacteria. He continued to spike fever. Chest x-ray showed no acute findings. Urinalysis showed no evidence of acute cystitis. COVID-19 antigen came back negative. 2D echocardiogram revealed ejection fraction of 60%, normal LV size and function, no evidence of vegetations. Infectious disease saw patient. Antibiotics was deescalated from vancomycin and Zosyn to vancomycin and cefazolin. Also upper doubler saw patient. #2 Large epidural abscess with probable compression of cauda equina Because there was tenderness with palpation of spine lumbar MRI was ordered. The lumbar MRI showed large dorsal epidural abscess from L1-L2 to L5-S1 with severe thecal sac compression. Emergency neurosurgical consultation was advised. 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 Left paraspinous and posterior paraspinal soft tissue infection. Rectal exam showed no rectal tone but with large stool in rectal vault. Nurse reported last bowel movement was yesterday and it was medium and loose. The case was discussed with transfer line at [facility] (9- ) #3 acute kidney injury: Due to rhabdomyolysis, prerenal. Baseline kidney function is normal. His creatinine improved with IV fluids. Normal saline was changed to D5W because of hyponatremia. Potassium was replaced. Patient is n.p.o. until speech sees patient and make recommendations. #4 rhabdomyolysis: Secondary to muscle damage due to her bedridden for long time. Received IV fluids and CPK was trended. CPK trended down. #5 abnormal cardiac enzymes: Likely due to demand ischemia secondary to #1 and 2. EKG revealed no acute hemic changes. Troponin trended down. Patient had a history of Takotsubo cardiomyopathy, no acute CHF. Ejection fraction is normal, no wall motion abnormalities. #6 COPD: Did not appear to be in COPD exacerbation. Was on room air. #7 history of IV drug use: Urine drug screen is positive for opioids and amphetamines. On admission there was report that he indeed use methamphetamine and heroin. #8 chronic hepatitis C: Liver transaminases are chronically elevated, alk phos trended down #9 history of Takotsubo cardiomyopathy: Without evidence of acute CHF as above #10 DVT prophylaxis: Was on lovenox cutaneous with visual change to heparin subcutaneous. Hold subcutaneous heparin before transferring to other Hospital for possible neurosurgery intervention. The case was discussed with neurosurgery Dr. Hyde at [facility]. Patient will be transferred. Patient Problems: Active and Suspected Problems (Last Updated 06/26/20 @ 12:[address] Jim Rodríguez MD) Bacteremia (Acute) Severe sepsis (Acute) Rhabdomyolysis (Acute) MALINDA (acute kidney injury) (Acute) - Physical Exam Vitals/I&O's: Vital Signs Temp Pulse Resp BP Pulse Ox 98.6 F 105 H 22 H 126/82 H 99 06/27/20 15:23 06/27/20 15:23 06/27/20 15:23 06/27/20 15:23 06/27/20 15:23 Oxygen Flow Rate (L/min) 2 Oxygen Delivery Method Room Air Weight: 68.402 kg Body Mass Index (BMI) 24.5 Finger Stick Blood Glucose 118 Intake and Output for Last 24 Hours 06/25/20 06/26/20 06/27/20 23:59 23:59 23:59 Intake Total 1932.5 / 1932.5 2161.67 / 2161.67 3248.97 / 3248.97 Output Total 1340 / 1540 955 / 955 Balance 1932.5 / 1932.5 821.67 / 621.67 2293.97 / 2293.97 General: - - Obtunded HEENT: Atraumatic, Normocephalic Neck: Supple, No Nodes, Trachea Midline Lungs: No rhonchi, No wheeze, No rales, Tachypneic, Using Accessory Muscles Cardiovascular: Normal S1, Normal S2, Tachycardic Abdomen: Bowel Sounds Present, Soft, Non Tender, - - Rectal examination showed large stool in rectal vault. Extremities: No edema, Tenderness - Right arm right leg Skin: Ulcer/ Wound - Diffuse ulcers with surrounding erythema. Mildly pinkish area of right medial side of right knee., - Musculoskeletal: Tenderness - Lumbosacral spine Neurological: - - Obtunded. No rectal tone. Psych/Mental Status: - - Obtunded Microbiology Past 72 Hours 06/25/20 23:00 Blood Culture (Wb) - Anticubital Right Blood Culture - Final Staphylococcus aureus 06/25/20 21:34 Blood Culture (Wb) - Anticubital Left Bacteria Detection (PCR) - Final Staphylococcus aureus 06/25/20 21:34 Blood Culture (Wb) - Anticubital Left Blood Culture - Preliminary Staphylococcus aureus 06/25/20 22:03 Mucosa - Nasopharyngeal SARS-CoV-2 Antigen (Rapid) - Final Laboratory Results 06/27/20 05:00: WBC 12.8 H, RBC 3.68 L, Hgb 10.8 L, Hct 33.8 L, MCV 91.8, MCH 29.3, MCHC 32.0, RDW Std Deviation 51.5 H, RDW Coeff of Re 15.3 H, Plt Count 108 L, MPV 10.4, Immature Gran % (Auto) 0.900, Neut % (Auto) 93.6 H, Lymph % (Auto) 3.8 L, Laurel % (Auto) 1.3, Eos % (Auto) 0.1, Baso % (Auto) 0.3, Absolute Neuts (auto) 12.0 H, Absolute Lymphs (auto) 0.48 L, Nucleated RBC % 0, Differential Comment SCANNED, Atypical Lymphocytes 1+ 06/27/20 05:00: Sodium 152 H, Potassium 3.2 L, Chloride 123 H, Carbon Dioxide 22.0, Anion Gap 7, BUN 37 H, Creatinine 1.24, Estim Creat Clear Calc 62.17, Est GFR (MDRD) Af Amer 78, Est GFR (MDRD) Non-Af 65, BUN/Creatinine Ratio 29.8 H, Glucose 85, Calcium 7.7 L, Total Bilirubin 1.00, AST 47 H, ALT 48, Alkaline Phosphatase 130 H, Total Protein 5.3 L, Albumin 1.5 L, Globulin 3.8, Albumin/Globulin Ratio 0.4 L 06/27/20 05:00: TSH 11.00 H, Free T4 0.42 L, Thyroxine (T4) 2.5 L, Free T3 pg/dL < 0.5 L 06/27/20 14:50: Hepatitis A IgM Ab Pending, Hep Bs Antigen Pending, Hep B Core IgM Ab Pending, Hepatitis C Ab (EIA) Pending 06/27/20 14:50: HIV 1&2 Antibody Non-Reactive Current Medications Acetaminophen (Acetaminophen 650 Mg Suppository) 650 mg RECTAL Q6H PRN PRN PRN Reason: TEMP > 100.5 F Last Admin: 06/27/20 02:59 Dose: 650 mg Documented by: Acetaminophen (Acetaminophen 325 Mg Tablet) 650 mg PO Q6H PRN PRN PRN Reason: Pain 1-10 or Fever Erythromycin (Erythromycin Base 1 Opth.Tube) 1 applic EACH EYE TID [facility] Stop: 07/01/20 14:00 Last Admin: 06/27/20 14:31 Dose: 1 applic Documented by: Heparin Sodium (Porcine) (Heparin Injection (Vial) 5,000 Unit/Ml Vial) 5,000 unit SC Q8 [facility] Last Admin: 06/27/20 14:31 Dose: 5,000 unit Documented by: Vancomycin IV Pharmacy to Dose (1 ea/ Sodium Chloride) 500 mls @ 250 mls/hr IV PRN PRN; Protocol PRN Reason: Rx to Dose Sodium Chloride () 250 mls @ 15 mls/hr IV .[id number] PRN PRN Reason: Saline Flush Sodium Chloride () 250 mls @ 15 mls/hr IV .[id number] PRN PRN Reason: Additional IVPB Infusion Vancomycin HCl (Vancomycin) 1,000 mg in 200 mls @ 200 mls/hr IV Q24H [facility] Last Infusion: 06/27/20 01:00 Dose: Infused Documented by: Dextrose () 1,000 mls @ 75 mls/hr IV .[id number] [facility] Last Infusion: 06/27/20 19:50 Dose: 75 mls/hr Documented by: Cefazolin Sodium 2 gm/ Sodium (Chloride) 110 mls @ 150 mls/hr IV Q8 [facility] Ondansetron HCl (Ondansetron 4 Mg/2 Ml Vial) 4 mg IV Q8H PRN PRN PRN Reason: NAUSEA/VOMITING Sodium Chloride (0.9% Saline Lock 10 Ml Syringe) 10 - 40 ml IV UD PRN PRN Reason: SALINE FLUSH Last Admin: 06/27/20 17:53 Dose: 10 ml Documented by: Home Medications: Medications to take at Discharge Levothyroxine [Synthroid] 112 mcg PO DAILY 07/10/16 Albuterol Sulfate [Proventil Hfa] 6.7 gm IH Q4H PRN 10/21/16 Gabapentin [Neurontin] 900 mg PO TIDCM 10/21/16 cyanocobalamin (vitamin B-12) 1,000 mcg/mL injection solution 1,000 syr IM QMONTH 30 Days #1 ml 03/21/18 Fluticasone/Vilanterol [Breo Ellipta 200-25 Mcg INH] 1 ea INHALATION DAILY 02/14/19 Montelukast [Singulair] 10 mg PO QHS 02/14/19 Epi Pen (for allergic rxn) 0.3 mg IM X1 06/13/19 lithium carbonate 300 mg tablet,extended release 300 mg PO DAILY PRN tab 01/10/20 prednisone 10 mg tablet 10 mg PO DAILY 01/10/20 Mupirocin [Bactroban] 1 applic TOPICAL TID #1 tube 03/10/20 Primary Care Physician: Vi Velásquez MD [Primary Care Provider] - Disposition: Acute care Hospital Minutes spent on discharge:: 45 Medical Necessity - Tobacco Use Smoking Status: Current every day smoker Tobacco Use: Cigarettes Meaningful Use Info Meaningful Use Diagnoses (Choose all that apply): None applicable Inpatient E&M: 64975 Disch Hosp
--- NOTE | 2020-06-27 20:48 | PCS.PANDOC ---
PANDEMIC DOCUMENTATION INITIATED: Date: 06/25/20 Time: 5458
[2020-06-27] MEDS: Cefazolin 2 GM in 0.9% Normal Saline 100 ML IV (21:25)
--- NOTE | 2020-06-27 22:04 | NURSING ---
CHACE URBINA UPDATED ABOUT PATIENT BEING TRANSFERRED TO [facility], GIVEN NUMBER TO NEW FLOOR. DENIED ANY QUESTIONS OR CONCERNS.
--- NOTE | 2020-06-28 06:06 | NURSING ---
Notified MELO Valentine at [facility] with preliminary blood culture result this am on re-draw of blood cultures.
[2020-06-30 08:07] LABS: HEPATITIS B SURFACE AG Negative (Negative); Hepatitis A IgM Antibody Negative (Negative); Hepatitis B Core AB IgM Negative (Negative)
[2020-06-30 13:43] LABS: Hep C Antibodies 8.9 s/co ratio (0.0-0.9)
== END 2020-06-27 22:48 | disposition short-term general hospital (02) | DRG 720 ==
LOC: ED 21:43 → ICU 23:37 → PCU 06-27 15:22
PROVIDERS: Internal Medicine Infectious Disease; Admitting Provider Hospitalist; Emergency Provider Emergency Medicine; PCP Student in an Organized Health Care Education/Training Program; Visit Provider Hospitalist
DX: A41.01 Sepsis due to Methicillin susceptible Staphylococcus aureus (principal); R65.20 Severe sepsis without septic shock; M62.82 Rhabdomyolysis; G06.1 Intraspinal abscess and granuloma; G83.4 Cauda equina syndrome; M46.28 Osteomyelitis of vertebra, sacral and sacrococcygeal region; G93.41 Metabolic encephalopathy; T40.1X1A Poisoning by heroin, accidental (unintentional), initial encounter; G92 Toxic encephalopathy; Y92.009 Unspecified place in unspecified non-institutional (private) residence as the place of occurrence of the external cause; I24.8 Other forms of acute ischemic heart disease; R09.02 Hypoxemia; N17.9 Acute kidney failure, unspecified; L03.115 Cellulitis of right lower limb; I11.0 Hypertensive heart disease with heart failure; I50.22 Chronic systolic (congestive) heart failure; B18.2 Chronic viral hepatitis C; E87.0 Hyperosmolality and hypernatremia; E87.8 Other disorders of electrolyte and fluid balance, not elsewhere classified; E86.0 Dehydration; J44.9 Chronic obstructive pulmonary disease, unspecified; E03.9 Hypothyroidism, unspecified; Z20.822 Contact with and (suspected) exposure to COVID-19; F19.10 Other psychoactive substance abuse, uncomplicated; M06.9 Rheumatoid arthritis, unspecified; L20.9 Atopic dermatitis, unspecified; F31.9 Bipolar disorder, unspecified; F41.0 Panic disorder [episodic paroxysmal anxiety]; F17.210 Nicotine dependence, cigarettes, uncomplicated; Z74.01 Bed confinement status; Z79.890 Hormone replacement therapy; I25.2 Old myocardial infarction; Z85.72 Personal history of non-Hodgkin lymphomas
CPT/HCPCS: 51702; 70450; 71045; 72158; 73521; 80053; 80074; 80307; 81001; 82550; 82962; 83605; 84436; 84439; 84443; 84481; 84484; 85025; 85610; 85730; 86703; 87040; 87149; 87186; 87426; 87641; 92610; 93005; 93306; 97162; 97166; 99251; 99285; 99406; A9575; J7030; Q9957; A4216; C8929; G0463

== ENCOUNTER 2020-08-29 12:18 | Emergency (ER) | payer MEDICAID, SELFPAY ==
[2020-06-26 00:48] VITALS: BMI 24.5
[2020-08-29] VITALS (15 sets, daily range): BP systolic 115–148; BP diastolic 81–129; PULSE 10–109; RESP 12–20; TEMP 36.2–36.7; O2SAT 93–98; BMI 20.2
--- NOTE | 2020-08-29 12:41 | EKG12_ITS ---
Test Reason : Blood Pressure : / mmHG Vent. Rate : 102 BPM Atrial Rate : 102 BPM P-R Int : 138 ms QRS Dur : 078 ms QT Int : 336 ms P-R-T Axes : 025 072 004 degrees QTc Int : [address] & T wave abnormality, consider inferior ischemia ST & T wave abnormality, consider anterior ischemia Abnormal ECG Confirmed by LINWOOD MOHAN, GALLITO ([id number]), brands editor LYNN DEVRIES ([id number]) on 09/01/2020 1:46:00 PM Referred By: MERY/IGLESIA Confirmed By:GALLITO PALUMBO MD
--- NOTE | 2020-08-29 12:41 | CT_ITS ---
STUDY: CT BRAIN WITHOUT CONTRAST REASON FOR EXAM: Male, 55 years old. Mental status change RADIATION DOSAGE (If Supplied By Facility): CTDIvol = ( 44.99 ) mGy, DLP = ( 779.24 ) mGycm TECHNIQUE: Transaxial CT imaging of the brain was performed without administration of intravenous contrast material. Individualized dose optimization techniques were used for this CT. COMPARISON: No relevant priors. FINDINGS: Normal soft tissue structures. Normal calvarium. There is mild cerebral atrophy with widening of the extra-axial spaces and ventricular dilatation. Normal white matter tracts of the cerebral hemispheres. Normal basal ganglia and thalami. Normal brainstem. Normal cerebellum. There is no intracranial hemorrhage. There are no findings of an acute ischemic infarction. Normal visualized paranasal sinuses. CT/Brain/Head without Contrast IMPRESSION: Chronic involutional changes of the brain. Electronically Signed: Davis Honeycutt MD at 14:11 EDT , Service support ,
[2020-08-29] MEDS: 0.9% Normal Saline 1,000 ML 999 ML IV (13:14)
--- NOTE | 2020-08-29 13:30 | RAD_ITS ---
STUDY: X-RAY CHEST REASON FOR EXAM: Male, 55 years old. Mental status change TECHNIQUE: Single AP portable view of the chest. COMPARISON: Comparison is made with prior study dated 06/25/2020. FINDINGS: EKG electrodes are seen. The lungs are clear and expanded. There is no demonstrated pleural abnormality. Normal size heart. Normal mediastinum and rima. Normal visualized pulmonary arteries. There is atherosclerotic calcification of the aortic arch with tortuosity. Normal visualized thoracic spine. Normal visualized ribs, clavicles, and shoulders. There is no demonstrated abnormality of the visualized soft tissue structures of the upper abdomen. RAD/Chest 1 View (Portable) IMPRESSION: No acute abnormality is seen. Electronically Signed: Davis Honeycutt MD at 13:51 EDT , Service support ,
[2020-08-29 13:59] LABS: Absolute Lymphocyte Count 3.33 X10^3/uL (0.83-4.51); Absolute Neutrophil Count 14.1 X10^3/uL (2.0-7.7); Basophil# 0.06 X10^3/uL; Basophil% 0.3 % (0-1); Eosinophil# 0.36 X10^3/uL; Eosinophils% 1.9 % (0-5); Hematocrit 36.7 % (40-54); Hemoglobin 11.3 g/dL (13.0-16.5); Lymphocyte # 3.33 X10^3/ul (4.0); Lymphocyte % 17.3 % (19-41); Mean Corp Hgb Conc 30.8 g/dL (32-36); Mean Corpuscular Hgb 27.2 pg (27.0-32.0); Mean Corpuscular Volume 88.2 fL (80-94); Mean Platelet Vol. 8.6 fl (6.2-12.0); Monocyte# 1.23 X10^3/uL; Monocyte% 6.4 % (0-10); NRBC Flagged by Analyzer 0 % (0-5); Neutrophil % 73.3 % (47-70); Platelet Count 633 K/mm3 (150-450); RBC Distribution Width CV 13.8 % (11.6-14.6); RBC Distribution Width SD 44.9 fl (35.1-43.9); Red Blood Count 4.16 M/mm3 (4.6-6.2); White Blood Count 19.2 K/mm3 (4.4-11.0)
[2020-08-29 14:10] LABS: International Normalized Ratio 1.9; Prothrombin Time (Protime)PT. 20.9 SECONDS (11.7-14.9)
[2020-08-29 14:11] LABS: Partial Thromboplast Time 38.2 Seconds (24.1-36.2)
[2020-08-29 14:17] LABS: ALB/GLOB Ratio 0.6 RATIO (0.9-2.4); AST(SGOT) 9 U/L (15-37); Alanine Aminotransfer ALT/SGPT 11 U/L (16-61); Alkaline Phosphatase 160 U/L (45-117); Anion Gap 8 (5-15); BUN 15 mg/dL (7-18); BUN/Creat Ratio 10.9 RATIO (10-20); CPK Total, Creatine Kinase 15 U/L (39-308); Chloride 98 mmol/L (98-107); Creatinine, Serum 1.38 mg/dL (0.70-1.30); EST Glomerular Filtration Rate 57 mL/min (>60); Est Glom Filt Rate - Afr Amer 69 mL/min (>60); Estimated Creatinine Clearance 52.71 ml/min; Globulin 5.3 g/dL (2.2-4.2); Glucose 78 mg/dL (74-106); Potassium 3.6 mmol/L (3.5-5.1); Protein, Total 8.3 g/dL (6.4-8.2); Sodium Level 133 mmol/L (136-145)
[2020-08-29 14:23] LABS: Lactic Acid 1.1 mmol/L (0.4-1.9)
[2020-08-29 14:42] LABS: Mucous, Urine 0 SEEN /hpf (<or=2+); Squamous Epithelial Cells - UA 0 SEEN /hpf (0-5)
[2020-08-29 14:46] LABS: Color, Urine Yellow (Yellow); Glucose, Dipstick Normal (Normal); Ketone-Dipstick Negative (Negative); Leukocyte Esterase-Dipstick 500 /ul (Negative); Nitrite-Dipstick Positive (Negative); Occult Blood-Urine 150 /ul (Negative); Protein-Dipstick 30 mg/dl (Negative); Specific Gravity, Urine 1.015 (1.002-1.030); Urine Bilirubin Dipstick Negative (Negative); Urine Clarity Sl. Cloudy (Clear); Urine Urobilinogen Normal (Normal); Urine pH 6.5 (5.0 - 8.0)
[2020-08-29 14:51] LABS: Bacteria 1+ /hpf (None Seen); Red Blood Cells-Urine 10-25 SEEN /hpf (0-5); White Blood Cells 50-100 SEEN /hpf (0-5)
--- NOTE | 2020-08-29 14:57 | CT_ITS ---
STUDY: CT ABDOMEN AND PELVIS WITH CONTRAST REASON FOR EXAM: Male, 55 years old. H/o pelvic abscess, spinal abscess RADIATION DOSAGE (If Supplied By Facility): CTDIvol = ( 10.64 ) mGy, DLP = ( 554.76 ) mGycm TECHNIQUE: Transaxial images were obtained from the dome of the diaphragm to the symphysis pubis without oral contrast. IV 100mL Isovue-300 was administered. Sagittal and coronal images were reconstructed. Individualized dose optimization techniques were used for this CT. COMPARISON: Comparison is made with prior study dated 06/13/2019. FINDINGS: Mild degree of increased markings at the lung bases suggestive of bibasilar atelectasis. Coronary artery calcification. 2.3 cm x 2.6 cm cyst in the anterior aspect of the right lobe of liver with focal posterior and right lateral rim-like calcification. Minimal degree of the central intrahepatic biliary ductal dilatation and pneumobilia in the left lobe of the liver most likely secondary to prior cholecystectomy. The patient is status post cholecystectomy. The previously seen biliary stent is not seen at this time. Normal spleen. There is diffuse atrophy of the pancreas. Normal bilateral adrenal glands. Normal right kidney. Normal left kidney. Normal visualized stomach. Normal small intestine. Moderate amount of fecal material is seen within the colon. The appendix is visualized and appears normal. Normal abdominal aorta. Normal inferior vena cava. There is borderline retroperitoneal lymphadenopathy with enlarged nodes no greater than 10mm in the short axis diameter. Diffuse bladder wall thickening. Normal abdominal wall. There now is evidence of a bony destruction of the S1 vertebrae extending to both the right and left limbs of the sacrum worse on the left side. This may represent either changes secondary to trauma versus osteomyelitis. Presacral soft tissue swelling. CT/Abdomen/Pelvis W IV Cont ONLY IMPRESSION: New evidence of the bony destruction of the S1 vertebrae with extension to both the right and left iliac wings with the focal sclerosis. This may represent changes secondary to chronic osteomyelitis if there is no history of trauma. If there is history of trauma, this may represent fracture. There is evidence of presacral soft tissue swelling. Electronically Signed: Davis Honeycutt MD at 15:31 EDT , Service support ,
--- NOTE | 2020-08-29 15:08 | ED.DCSUM_ITS ---
- ER Visit Summary Date of Service: 08/29/20 Chief Complaint: I am a little off History of Present Illness: The patient is a [address] Ayala. He is a poor informant. He has a complicated recent medical history including being admitted at [facility] from June 28?July 24. June 28 he had an L2-L4 laminectomy for an epidural abscess. July 02 he had a left hip aspiration. July 04 he had an I&D of a left hip with revision of his hardware. Patient reports for the past 2 days he has felt confused and weak. He states has been vomiting in the morning each day for the past 3 days. He denies any fever or chills. No chest pain or shortness of breath. No abdominal pain or diarrhea. No dysuria or frequency. Physical Examination: Vitals: Stable. Afebrile. General: Well-nourished and well-developed. Head: Normocephalic atraumatic. Neck: Supple, no lymphadenopathy. No JVD. Nontender. Cardiovascular: Regular rate and rhythm. No murmurs. Respiratory: No respiratory distress. Clear to auscultation bilaterally. Abdominal: Soft, nontender, nondistended, normal bowel sounds. No guarding, rebound, or peritoneal signs. Back: Nontender. Laminectomy incision in the lumbar region is healed well. It is clean, dry, intact. There is no erythema or warmth. Extremities: Nontender, 2+ pitting edema lower extremities bilaterally. The incision from the left hip revision is also clean healed well. It is clean, dry, intact. There is approximately 1 cm in diameter x2 superficial ulcer anterior to this that appears to be from removing the dressing. There is no induration or fluctuance. Skin: Normal color, no rash. No decub ulcer. Neurologic: Alert and oriented ?3. Cranial nerves II through XII are intact. Normal strength and sensation. Psych: Normal affect. Test Results: EKG is sinus tach [address] changes. Is T wave inversions in leads V2 and V3. Troponin is negative. Lactic acid is 1.1. Urinalysis shows leukocytes, nitrites, blood, 50-100 white blood cells, 10-25 red blood cells, and 1+ bacteria. This was sent for culture. LFTs show alk phos 160, ALT of 11, AST of 9. INR is 1.9. PTT is 38.2. Albumin is 3.0, protein of 8.3, globin of 5.3. Chem-7 shows a sodium 133 and creatinine of 1.38. Calcium is 12.0. CBC shows a white count of 19.2 with an H&H 11.3 and 36.7, platelets of 633, second neutrophils 73, lymphocytes of 17. Clinical Impression(s) from Imaging Studies Brain CT 08/29/20 12:41 IMPRESSION: Chronic involutional changes of the brain. Electronically Signed: Davis Honeycutt MD at 14:11 EDT , Service support , Chest X-Ray 08/29/20 13:30 IMPRESSION: No acute abnormality is seen. Electronically Signed: Davis Honeycutt MD at 13:51 EDT , Service support , Abdomen/Pelvis CT 08/29/20 14:57 IMPRESSION: New evidence of the bony destruction of the S1 vertebrae with extension to both the right and left iliac wings with the focal sclerosis. This may represent changes secondary to chronic osteomyelitis if there is no history of trauma. If there is history of trauma, this may represent fracture. There is evidence of presacral soft tissue swelling. Electronically Signed: Davis Honeycutt MD at 15:31 EDT , Service support , Emergency Department Course and Treatment: With a urinary tract infection patient was given cefepime IV as he did have a Domínguez catheter while he was hospitalized. With the osteomyelitis patient was given vancomycin IV as well. He was discussed with Dr. Lindsey who would like him transferred back up to [facility]. Treatment Plan: Patient was discussed with [facility] and is going to be transferred for further evaluation and treatment. Disposition: Transferred in serious condition. Impression: 1. UTI. 2. Sacral osteomyelitis. 3. Renal insufficiency. This note was generated with Allov[employer] software. It may contain incorrect words, spelling, and punctuation that were not noted in review of the chart prior to signing ED Disposition - Plan for ED Patient: Referrals: Vi Velásquez MD [Primary Care Provider] -
[2020-08-29] MEDS: Vancomycin IV 1,000 MG/200 ML BAG 200 MG IV (16:30)
--- NOTE | 2020-08-29 16:40 | NURSING ---
FAXED FACESHEET TO [facility]
--- NOTE | 2020-08-29 16:51 | NURSING ---
HOSPITALIST PAGED FOR DR GUILLAUME
--- NOTE | 2020-08-29 17:01 | NURSING ---
Attempted to call pt's son Neil via number on file- no answer along with full [employer] mailbox and unable to take any messages. Will try again later.
--- NOTE | 2020-08-29 17:56 | NURSING ---
Talked to nurse De from [facility] updated on pt condition and transfer. She verbalized they will lock up his belongings. Pt made aware. Dr. Valdez was able to update pt's son via telephone.
--- NOTE | 2020-08-29 21:09 | NURSING ---
CALLED [facility] FOR AN UPDATE. THEY SAID THEY HAVE A UNIT FLAGGED JUST NO ROOM YET.
[2020-08-30 00:03] VITALS: BP 104/81; PULSE 104; RESP 18; TEMP 36.3; O2SAT 96
== END 2020-08-30 00:15 | disposition short-term general hospital (02) ==
LOC: ED 14:02
PROVIDERS: Emergency Provider Emergency Medicine; PCP Student in an Organized Health Care Education/Training Program
DX: N39.0 Urinary tract infection, site not specified (principal); M46.28 Osteomyelitis of vertebra, sacral and sacrococcygeal region; N28.9 Disorder of kidney and ureter, unspecified; Z20.822 Contact with and (suspected) exposure to COVID-19; R11.2 Nausea with vomiting, unspecified; J44.9 Chronic obstructive pulmonary disease, unspecified; I11.0 Hypertensive heart disease with heart failure; I50.9 Heart failure, unspecified; Z79.01 Long term (current) use of anticoagulants; Z79.899 Other long term (current) drug therapy; Z85.72 Personal history of non-Hodgkin lymphomas
CPT/HCPCS: 70450; 71045; 74177; 80053; 81001; 82550; 83605; 84484; 85025; 85610; 85730; 87040; 87077; 87086; 87088; 87186; 87426; 93005; 96361; 96365; 96367; 99285; J7030; Q9967; A4216

== ENCOUNTER 2020-09-22 19:50 | Inpatient (IN) | payer MEDICAID, SELFPAY ==
[2020-08-29 12:23] VITALS: BMI 20.2
[2020-09-22] VITALS (7 sets, daily range): BP systolic 90–104; BP diastolic 56–71; PULSE 96–132; RESP 14–28; TEMP 37.1–38.5; O2SAT 92–96; BMI 21.3
--- NOTE | 2020-09-22 20:00 | EKG12_ITS ---
Test Reason : FEVER Blood Pressure : / mmHG Vent. Rate : 121 BPM Atrial Rate : 121 BPM P-R Int : 118 ms QRS Dur : 072 ms QT Int : 310 ms P-R-T Axes : 026 056 032 degrees QTc Int : 440 ms Sinus tachycardia Otherwise normal ECG Confirmed by BETY MOHAN, PETRONA ([id number]), online editor DORIS KAYE ([id number]) on 09/24/2020 1:05:08 PM Referred By: ROBERT Confirmed By:PETRONA ALBERT MD
--- NOTE | 2020-09-22 20:02 | ED.DCSUM_ITS ---
History of Present Illness Chief Complaint: Fever Informant: Patient Narrative: 54-year-old male presenting with fever, tachycardia, generally feeling unwell with history of sacral osteomyelitis a few weeks ago. He states that he was sent to [facility]. He does not know the name of the orthopedic surgeon who did surgery on his spine. He states he was sent home with IV vancomycin and Zosyn. He states that he had been doing well. He stopped taking his antibiotics 3 days ago because he was having diarrhea and abdominal cramping. He does admit to history of black stools recently. He has not had any bloody stools. He states he tried to call his primary doctor several times without an answer. He has not been able to get a hold of his spinal surgeon. He continues to have back pain. - Past Medical History (1) Amphetamine abuse Status: Chronic (2) COPD (chronic obstructive pulmonary disease) Status: Chronic (3) Essential hypertension Status: Chronic (4) IVDU (intravenous drug user) Status: Chronic (5) Non-Hodgkin lymphoma in remission Status: Chronic (6) Opiate abuse, continuous Status: Chronic (7) History of non-ST elevation myocardial infarction (NSTEMI) Status: Resolved Comment: 06/25/20 (8) Takotsubo cardiomyopathy Status: Resolved Past Medical History - Allergies and Home Meds Allergies/Adverse Reactions: Allergies methotrexate Adverse Reaction (Verified 08/29/20 12:19) Hives,Rash,Lesions naproxen [From Naprosyn] Adverse Reaction (Verified 08/29/20 12:19) Upset Stomach BEE VENOM Allergy (Uncoded 06/25/20 21:31) Anaphylaxis ROOT BEER Allergy (Uncoded 06/25/20 21:31) Hives Primary Care Physician: Vi Velásquez MD [Primary Care Provider] - Prior records reviewed: Yes Surgical History: appendectomy, arthroscopy, knee, cholecystectomy, total hip arthroplasty, - - Facial reconstructive surgery. Sacral osteomyelitis Smoking Status: Current every day smoker Alcohol: None Drugs: None, - - Family History Maternal Family History: Reports: Cancer Paternal Family History: Reports: Cancer Review of Systems General: Reports: Chills, Fever, Malaise Eyes: Denies: Visual changes - bilaterally, Diplopia ENT: Denies: Rhinorrhea, Sore throat Cardiovascular: Denies: Chest pain, Palpitations Respiratory: Denies: Dyspnea, Cough, Dyspnea on exertion Gastrointestinal: Reports: Abdominal pain - Generalized abdominal cramping, Diarrhea. Denies: Nausea, Vomiting, Melena, Hematochezia Genitourinary: Reports: Frequency. Denies: Hematuria Musculoskeletal: Reports: Back pain. Denies: Arthralgias, Neck pain Skin: Reports: - - Surgical incision site on back Neurological: Denies: Headache, Weakness Psych: Denies: Depression, Anxiety Physical Exam Vital Signs/Narrative: Vital Signs Temp Pulse Resp BP Pulse Ox 09/22/20 19:59 101.3 F H 132 H 22 H 104/64 94 09/22/20 19:56 101.3 F H 132 H 22 H 104/64 92 Inital Vital Signs reviewed: Yes General: Well nourished, No Acute Distress Head: Normocephalic, Atraumatic Eyes: Perrl, EOMI ENT: Moist mucous membranes, Sinus tenderness Cardiovascular: Regular rate, Tachycardia Respiratory: No distress, CTA bilaterally Abdomen: Soft, Nondistended Rectal: - - Brown stool. Negative for: Tenderness Back: - - Centralized tenderness for the lower back. There is no cellulitic change noted. Surgical incision site appears dry. Extremities: Nontender, No edema Skin: Negative for: No rash, Cyanosis, Diaphoresis Neurological: Alert, Oriented x3, Cranial nerves II-XII grossly intact Psychological: Normal affect, Normal Mood Diagnostic/Tx/Re-eval - Medical Decision Making Patient with recent history of sacral osteomyelitis and recent surgery sent home on vancomycin and Zosyn to take at home presenting with fever, tachycardia. Patient states that he is still having back pain. Sepsis protocol initiated given symptoms. Patient was given vancomycin and Zosyn. EKG performed on arrival shows sinus rhythm of 121 bpm without signs of ischemic change as interpreted by myself. Chest x-ray is interpreted by myself shows no acute cardiopulmonary process. Radiology does agree. Patient has a leukocytosis of 13.9, hemoglobin of 7.7, hematocrit 25.3, platelets 403. PT 22.7 INR 2.1. LFTs are unremarkable. Patient's electrolytes are normal. Renal function is normal. Procalcitonin elevated at 0.27. Lactic acid 0.8. Patient was ordered vancomycin and Zosyn as well as 2 L of IV fluids initially however patient was refusing. He was also given oral Tylenol 1 g. Patient's blood pressure was initially 104/54 but it did drop to 90/60. Patient noted to be anemic. Occult stool was sent. Patient was typed and crossmatched for 2 units of blood. Disc ussed with [facility] who accepted the transfer. Urinalysis is pending. Patient states that he has pain and was given 2 doses of fentanyl given his blood pressure. Patient will signed out to incoming ED doc for monitoring until transfer is available. Impression: 1. Sepsis 2. History of sacral osteomyelitis 3. Medical noncompliance 4. Occult GI bleed ED Disposition - Plan for ED Patient: Referrals: Vi Velásquez MD [Primary Care Provider] -
[2020-09-22] MEDS: Acetaminophen 500 MG Tablet 1000 MG PO (20:07)
--- NOTE | 2020-09-22 20:37 | RAD_ITS ---
INDICATION: fever EXAMINATION/TECHNIQUE: X-RAY - XR Chest 1 View COMPARISON: 08/29/2020. FINDINGS: The lungs are clear. The cardiomediastinal silhouette is unremarkable. No pleural effusion or pneumothorax. No acute osseous abnormalities. RAD/Chest 1 View (Portable) IMPRESSION: No acute radiographic abnormalities. Electronically Signed: Odell Shelton MD at 21:11 EDT Tel , Service support ,
[2020-09-22 20:47] LABS: Absolute Lymphocyte Count 1.83 X10^3/uL (0.83-4.51); Absolute Neutrophil Count 10.6 X10^3/uL (2.0-7.7); Basophil# 0.04 X10^3/uL; Basophil% 0.3 % (0-1); Eosinophil# 0.03 X10^3/uL; Eosinophils% 0.2 % (0-5); Hematocrit 25.3 % (40-54); Hemoglobin 7.7 g/dL (13.0-16.5); Lymphocyte # 1.83 X10^3/ul (0.83-4.51); Lymphocyte % 13.2 % (19-41); Mean Corp Hgb Conc 30.4 g/dL (32-36); Mean Corpuscular Hgb 27.2 pg (27.0-32.0); Mean Corpuscular Volume 89.4 fL (80-94); Mean Platelet Vol. 8.4 fl (6.2-12.0); Monocyte# 1.33 X10^3/uL; Monocyte% 9.6 % (0-10); NRBC Flagged by Analyzer 0 % (0-5); Neutrophil % 76.3 % (47-70); Platelet Count 403 K/mm3 (150-450); RBC Distribution Width CV 14.7 % (11.6-14.6); RBC Distribution Width SD 48.3 fl (35.1-43.9); Red Blood Count 2.83 M/mm3 (4.6-6.2); White Blood Count 13.9 K/mm3 (4.4-11.0)
[2020-09-22] MEDS: 0.9% Normal Saline 1,000 ML 999 ML IV ×2 (21:01→23:03)
[2020-09-22 21:04] LABS: ALB/GLOB Ratio 0.5 RATIO (0.9-2.4); AST(SGOT) 23 U/L (15-37); Alanine Aminotransfer ALT/SGPT 18 U/L (16-61); Albumin, Serum 2.1 g/dL (3.2-5.0); Alkaline Phosphatase 126 U/L (45-117); Anion Gap 4 (5-15); BUN 12 mg/dL (7-18); BUN/Creat Ratio 14.3 RATIO (10-20); Calcium,Total 8.1 mg/dL (8.5-10.1); Chloride 108 mmol/L (98-107); Creatinine, Serum 0.84 mg/dL (0.70-1.30); EST Glomerular Filtration Rate 101 mL/min (>60); Est Glom Filt Rate - Afr Amer 123 mL/min (>60); Estimated Creatinine Clearance 86.31 ml/min; Globulin 4.2 g/dL (2.2-4.2); Glucose 90 mg/dL (74-106); Potassium 4.4 mmol/L (3.5-5.1); Protein, Total 6.3 g/dL (6.4-8.2); Sodium Level 138 mmol/L (136-145)
[2020-09-22 21:11] LABS: Lactic Acid 0.8 mmol/L (0.4-1.9)
[2020-09-22 21:17] LABS: International Normalized Ratio 2.1; Prothrombin Time (Protime)PT. 22.7 SECONDS (11.7-14.9)
[2020-09-22 21:18] LABS: Partial Thromboplast Time 47.7 Seconds (24.1-36.2)
[2020-09-22 21:28] LABS: Procalcitonin 0.27 ng/mL (0.00-0.09)
[2020-09-22] MEDS: fentaNYL 100 MCG/2 ML Ampul 25 MCG IV ×2 (22:40→23:19)
--- NOTE | 2020-09-22 23:01 | ED.RN ---
pt's daughter, Francisca, present in pt's room. pt now agreeable to have 2nd blood cultures drawn and iv antibiotics to be given.
[2020-09-23] VITALS (23 sets, daily range): BP systolic 92–124; BP diastolic 54–81; PULSE 83–103; RESP 16–22; TEMP 36.4–37.6; O2SAT 94–99; BMI 23.0
[2020-09-23] MEDS: Vancomycin IV 1,000 MG/200 ML BAG 200 MG IV (00:16)
--- NOTE | 2020-09-23 02:13 | ED.RN ---
pt asked several questions on DNR status and possibility of getting more information on same, Abdoul Restrepo RN put in for social media job titles consult to talk with pt tomorrow.
[2020-09-23] MEDS: fentaNYL 100 MCG/2 ML Ampul 50 MCG IV (02:49)
--- NOTE | 2020-09-23 02:54 | PCM.HP.STD ---
<Kelly Gastelum - Last Filed: 09/23/20 02:54> Problem List (1) GI bleed Status: Acute (2) Anemia Status: Acute (3) Osteomyelitis of sacrum Status: Chronic (4) Essential hypertension Status: Chronic (5) COPD (chronic obstructive pulmonary disease) Status: Chronic (6) Bipolar disorder Status: Chronic (7) BPH (benign prostatic hyperplasia) Status: Chronic History of Present Illness Date of Admission: 09/23/20 Chief Complaint: Fever The patient is a 55 year old M presenting today from [facility] with complaints of fever, tachycardia and generally just feeling unwell. Patient states that he was recently discharged from following surgery for debridement of a sacral wound. Patient has been on chronic IV antibiotics including vancomycin and Zosyn due to osteomyelitis of the sacrum. Patient reports he stopped taking his antibiotics 3 days ago because he is having large amounts of diarrhea. Patient reports black stools, occult stool positive for blood. Patient reports significant back pain. contacted by ER physician and patient has been accepted but transfer center states they will not have a bed until later today. Patient denies shortness of breath, chest pain, nausea, vomiting. Patient reports diarrhea in generally ill feeling. Past Medical History Past Medical History (Chronic Problems): Chronic Problems (Last Reviewed 09/23/20 @ 03:01 by Kelly Gastelum NP-C) Osteomyelitis of sacrum (Chronic) Bipolar disorder (Chronic) BPH (benign prostatic hyperplasia) (Chronic) Essential hypertension (Chronic) Amphetamine abuse (Chronic) Opiate abuse, continuous (Chronic) IVDU (intravenous drug user) (Chronic) COPD (chronic obstructive pulmonary disease) (Chronic) Medical History: Medical History (Last Reviewed 09/23/20 @ 03:01 by Kelly Gastelum NP-Ashleigh) History of non-ST elevation myocardial infarction (NSTEMI) (Resolved) Onset Date: 06/26/20 I25.2 06/25/20 Essential hypertension (Chronic) I10 Amphetamine abuse (Chronic) F15.10 Opiate abuse, continuous (Chronic) F11.10 IVDU (intravenous drug user) (Chronic) F19.90 COPD (chronic obstructive pulmonary disease) (Chronic) J44.9 Non-Hodgkin lymphoma in remission (Resolved) C85.90 Takotsubo cardiomyopathy (Resolved) Onset Date: 06/2019 I51.81 Avascular necrosis of left femoral head M87.052 Bipolar disorder F31.9 Hepatitis C, chronic B18.2 Hypothyroidism E03.9 Intravenous drug abuse F19.10 NH lymphoma C85.90 Nicotine dependence F17.200 Rheumatoid arthritis M06.9 MALINDA (acute kidney injury) N17.9 Acute systolic CHF (congestive heart failure) I50.21 Bacteremia R78.81 Cholangitis K83.09 Encephalopathy G93.40 Rhabdomyolysis M62.82 Severe sepsis A41.9, R65.20 Large epidural abscess with probable compression of cauda equina 06/[address] elevation myocardial infarction (STEMI) of inferior wall (Inactive) Onset Date: 06/12/19 I21.19 Allergies methotrexate Adverse Reaction (Verified 08/29/20 12:19) Hives,Rash,Lesions naproxen [From Naprosyn] Adverse Reaction (Verified 08/29/20 12:19) Upset Stomach BEE VENOM Allergy (Uncoded 06/25/20 21:31) Anaphylaxis ROOT BEER Allergy (Uncoded 06/25/20 21:31) Hives Home Medications: Ambulatory Orders Medication Instructions Recorded Montelukast [Singulair] 10 mg PO QHS 02/14/19 Apixaban [Eliquis] 5 mg PO BID 08/29/20 Ergocalciferol (Vitamin D2) 50,000 unit PO FR 08/29/20 [Vitamin D2] Folic Acid 1 mg PO DAILY 08/29/20 Levothyroxine Sodium [Synthroid] 175 mcg PO DAILY 08/29/20 Cavalier Carbonate [Cavalier 450 mg PO QHS 08/29/20 Carbonate ER] Methadone HCl [(None)] 5 mg PO TID 08/29/20 Multivitamin with Minerals 1 tablet PO DAILY 08/29/20 [Multivitamins with Minerals] Nicotine [Nicoderm Cq (PBKC)] 21 mg TD QHS 08/29/20 Polyethylene Glycol 3350 [Miralax] 17 gm PO DAILY 08/29/20 Sennosides/Docusate Sodium 2 tablet PO QHS 08/29/20 [Sennosides-Docusate Sodium Tab] Thiamine HCl 100 mg PO DAILY 08/29/20 Dicyclomine HCl [Bentyl] 10 mg PO BID PRN 09/23/20 Finasteride [Proscar] 5 mg PO DAILY 09/23/20 Lactobacillus Rhamnosus GG 1 each PO BID 09/23/20 [Culturelle] Meropenem-0.9% Sodium Chloride 1 gm IV TID 09/23/20 [Meropenem-0.9% NaCl 1 Gram/50] Olanzapine [Zyprexa] 5 mg PO TID 09/23/20 Vancomycin/0.9 % Sod Chloride 750 mg IV Q12H PRN 09/23/20 [Vanco 750 mg/150 ml-0.9% NaCl] Surgical History: Surgical History (Last Reviewed 09/23/20 @ 03:01 by Kelly Gastelum, BUCKLE [employer]AP[employer]ER-C) H/O arthroscopic knee surgery Z98.890 H/O total hip arthroplasty Z96.649 History of appendectomy Z90.49 History of cholecystectomy Z90.49 History of left heart catheterization Onset Date: 06/12/19 Z98.890 04/07/2018 facial reconstructive surgery Surgical History: appendectomy, arthroscopy, knee, cholecystectomy, total hip arthroplasty, - - Facial reconstructive surgery. Sacral osteomyelitis Psychiatric History: Bipolar Smoking Status: Current every day smoker Alcohol: None Drugs: None, - - *Family History Maternal History Items: Cancer Paternal History Items: Cancer Review of Systems Constitutional: Reports: Fever, Malaise. Denies: Chills, Weight Change HEENT: Denies: Head Aches, Sinus Congestion, Sinus Drainage Cardiovascular: Denies: Chest Pain, Palpitations Respiratory: Denies: Cough, Shortness of breath at rest, Sputum production Gastrointestinal: Reports: Diarrhea, Melena. Denies: Abdominal Pain, Nausea, Vomiting Genitourinary: Denies: Dysuria Musculoskeletal: Denies: Joint Pain, Joint Tenderness Skin: Reports: Wounds - Sacral wound recently debrided at . Denies: Rash Neurological: Denies: Numbness, Tingling, Focal weakness Psychiatric: Reports: Depression - Bipolar. Denies: Anxiety, Homicidal Ideations, Suicidal Ideations Hematologic/ Lymphatic: Denies: Easy Bruising, Easy Bleeding VTE Information - Inpt Only VTE Present on Admission: No VTE Mechan Device Prophylaxis: SCD's VTE Pharm Prophylaxis ordered?: No Reason prophylaxis not ordered:: Medical Contraindication - GI bleed - Physical Exam Vitals/I&O's: Vital Signs Temp Pulse Resp BP Pulse Ox 97.5 F L 97 16 108/70 94 09/23/20 02:00 09/23/20 02:00 09/23/20 02:00 09/23/20 02:00 09/23/20 01:41 Oxygen Delivery Method Room Air Weight: 132 lb 4.438 oz Body Mass Index (BMI) 21.3 Finger Stick Blood Glucose 118 Intake and Output for Last 24 Hours 09/21/20 09/22/20 09/23/20 23:59 23:59 23:59 Intake Total 1000 / 1000 1250 / 1250 Balance 1000 / 1000 1250 / 1250 General: Alert, Oriented x3, Cooperative HEENT: Atraumatic, PERRLA, EOMI, Normocephalic Neck: Supple, No JVD, Negative Carotid Bruits Lungs: Clear to auscultation, Normal air movement Cardiovascular: Regular rate, Regular Rhythm, Normal S1, Normal S2, No murmurs Abdomen: Bowel Sounds Present, Soft, Non Tender, Hyperactive Bowel Sounds Extremities: No edema, Capillary Refill Less than 3 Seconds, Peripheral Pulses Normal Skin: No rashes, Ulcer/ Wound Musculoskeletal: No Tenderness to Palpation of Joints or Extremities Neurological: Cranial nerves II-XII grossly intact Psych/Mental Status: Anxious, Irrational Behavior Microbiology Past 72 Hours 09/22/20 22:40 Stool Stool Occult Blood (KEM) - Final Occult Blood Positive 09/22/20 20:46 Nasal Secretion SARS-CoV-2 Antigen (Rapid) - Final Laboratory Results 09/22/20 20:00: Lactic Acid 0.8 09/22/20 20:37: WBC 13.9 H, RBC 2.83 L, Hgb 7.7 L, Hct 25.3 L, MCV 89.4, MCH 27.2, MCHC 30.4 L, RDW Std Deviation 48.3 H, RDW Coeff of Re 14.7 H, Plt Count 403, MPV 8.4, Immature Gran % (Auto) 0.400, Neut % (Auto) 76.3 H, Lymph % (Auto) 13.2 L, [place] % (Auto) 9.6, Eos % (Auto) 0.2, Baso % (Auto) 0.3, Absolute Neuts (auto) 10.6 H, Absolute Lymphs (auto) 1.83, Nucleated RBC % 0 09/22/20 20:37: PT 22.7 H, INR 2.1, APTT 47.7 H 09/22/20 20:37: Sodium 138, Potassium 4.4, Chloride 108 H, Carbon Dioxide 26.0, Anion Gap 4 L, BUN 12, Creatinine 0.84, Estim Creat Clear Calc 86.31, Est GFR (MDRD) Af Amer 123, Est GFR (MDRD) Non-Af 101, BUN/Creatinine Ratio 14.3, Glucose 90, Calcium 8.1 L, Total Bilirubin 0.80, AST 23, ALT 18, Alkaline Phosphatase 126 H, Total Protein 6.3 L, Albumin 2.1 L, Globulin 4.2, Albumin/Globulin Ratio 0.5 L 09/22/20 20:37: Procalcitonin 0.27 H 09/22/20 22:10: Blood Type O POSITIVE, Antibody Screen NEGATIVE, Crossmatch See Detail 09/22/20 22:55: Cavalier 0.40 L Assessment/Plan All Active Problems (Last Reviewed 09/23/20 @ 03:01 by Kelly Gastelum NP-C) GI bleed (Acute) Anemia (Acute) History of non-ST elevation myocardial infarction (NSTEMI) (Resolved 06/26/20) Non-Hodgkin lymphoma in remission (Resolved) Takotsubo cardiomyopathy (Resolved 06/2019) 1. GI bleed -Admit to MedSurg -2 units PRBCs ordered -Normal saline at 100ml/hr -CBC and BMP in the morning -Protonix drip ordered -Clear liquid diet -General surgery consulted -Vital signs per protocol 2. Acute blood loss anemia -2 units PRBCs ordered -CBC in a.m. -O2 per protocol -OT PT to eval and treat 3. Osteomyelitis of sacrum -Continue Vanco and Zosyn at this time -Consult wound nurse -Consult infectious disease for other IV antibiotic options due to patient complaining of severe GI upset -IV fentanyl as needed for pain 4. Essential hypertension -Continue home medication regimen 5. COPD -O2 per protocol 6. Bipolar disorder -Continue lithium, current level subtherapeutic 7. BPH -Continue finasteride. 8. Tobacco abuse -Inpatient smoking cessation ordered -Transdermal nicotine patch ordered DVT prophylaxis-SCDs only This patient was seen by Kelly Gastelum, ELIF-Ashleigh under the supervision of Dr. Chrisyt. <Marques Christy - Last Filed: 09/23/20 06:12> History of Present Illness The patient is a 55 year old M [] Past Medical History Medical History: Medical History (Last Reviewed 09/23/20 @ 03:01 by Kelly Gastelum NP-C) History of non-ST elevation myocardial infarction (NSTEMI) (Resolved) Onset Date: 06/26/20 I25.2 06/25/20 Essential hypertension (Chronic) I10 Amphetamine abuse (Chronic) F15.10 Opiate abuse, continuous (Chronic) F11.10 IVDU (intravenous drug user) (Chronic) F19.90 COPD (chronic obstructive pulmonary disease) (Chronic) J44.9 Non-Hodgkin lymphoma in remission (Resolved) C85.90 Takotsubo cardiomyopathy (Resolved) Onset Date: 06/2019 I51.81 Avascular necrosis of left femoral head M87.052 Bipolar disorder F31.9 Hepatitis C, chronic B18.2 Hypothyroidism E03.9 Intravenous drug abuse F19.10 NH lymphoma C85.90 Nicotine dependence F17.200 Rheumatoid arthritis M06.9 MALINDA (acute kidney injury) N17.9 Acute systolic CHF (congestive heart failure) I50.21 Bacteremia R78.81 Cholangitis K83.09 Encephalopathy G93.40 Rhabdomyolysis M62.82 Severe sepsis A41.9, R65.20 Large epidural abscess with probable compression of cauda equina 06/[address] elevation myocardial infarction (STEMI) of inferior wall (Inactive) Onset Date: 06/12/19 I21.19 Allergies methotrexate Adverse Reaction (Verified 08/29/20 12:19) Hives,Rash,Lesions naproxen [From Naprosyn] Adverse Reaction (Verified 08/29/20 12:19) Upset Stomach BEE VENOM Allergy (Uncoded 06/25/20 21:31) Anaphylaxis ROOT BEER Allergy (Uncoded 06/25/20 21:31) Hives Surgical History: Surgical History (Last Reviewed 09/23/20 @ 03:01 by ELSA MaynardC) H/O arthroscopic knee surgery Z98.890 H/O total hip arthroplasty Z96.649 History of appendectomy Z90.49 History of cholecystectomy Z90.49 History of left heart catheterization Onset Date: 06/12/19 Z98.890 04/07/2018 facial reconstructive surgery - Physical Exam Vitals/I&O's: Vital Signs Temp Pulse Resp BP Pulse Ox 99.1 F 84 18 115/73 98 09/23/20 04:39 09/23/20 04:39 09/23/20 04:39 09/23/20 04:39 09/23/20 04:39 Oxygen Delivery Method Room Air Weight: 144 lb 9.972 oz Body Mass Index (BMI) 23.0 Finger Stick Blood Glucose 118 Intake and Output for Last 24 Hours 09/21/20 09/22/20 09/23/20 23:59 23:59 23:59 Intake Total 1000 / 1000 1650 / 1650 Balance 1000 / 1000 1650 / 1650 Microbiology Past 72 Hours 09/22/20 22:40 Stool Stool Occult Blood (KEM) - Final Occult Blood Positive 09/22/20 20:46 Nasal Secretion SARS-CoV-2 Antigen (Rapid) - Final Laboratory Results 09/22/20 20:00: Lactic Acid 0.8 09/22/20 20:37: WBC 13.9 H, RBC 2.83 L, Hgb 7.7 L, Hct 25.3 L, MCV 89.4, MCH 27.2, MCHC 30.4 L, RDW Std Deviation 48.3 H, RDW Coeff of Re 14.7 H, Plt Count 403, MPV 8.4, Immature Gran % (Auto) 0.400, Neut % (Auto) 76.3 H, Lymph % (Auto) 13.2 L, [place] % (Auto) 9.6, Eos % (Auto) 0.2, Baso % (Auto) 0.3, Absolute Neuts (auto) 10.6 H, Absolute Lymphs (auto) 1.83, Nucleated RBC % 0 09/22/20 20:37: PT 22.7 H, INR 2.1, APTT 47.7 H 09/22/20 20:37: Sodium 138, Potassium 4.4, Chloride 108 H, Carbon Dioxide 26.0, Anion Gap 4 L, BUN 12, Creatinine 0.84, Estim Creat Clear Calc 86.31, Est GFR (MDRD) Af Amer 123, Est GFR (MDRD) Non-Af 101, BUN/Creatinine Ratio 14.3, Glucose 90, Calcium 8.1 L, Total Bilirubin 0.80, AST 23, ALT 18, Alkaline Phosphatase 126 H, Total Protein 6.3 L, Albumin 2.1 L, Globulin 4.2, Albumin/Globulin Ratio 0.5 L 09/22/20 20:37: Procalcitonin 0.27 H 09/22/20 22:10: Blood Type O POSITIVE, Antibody Screen NEGATIVE, Crossmatch See Detail 09/22/20 22:55: Cavalier 0.40 L Current Medications Acetaminophen (Acetaminophen 325 Mg Tablet) 650 mg PO Q6H PRN PRN PRN Reason: Pain Score 1-10/Temp > 100.7 F Fentanyl Citrate (Fentanyl 100 Mcg/2 Ml Ampul) 25 mcg IV Q2H PRN PRN PRN Reason: Pain Score 6-10 Last Admin: 09/23/20 05:11 Dose: 25 mcg Documented by: Finasteride (Finasteride 5 Mg Tablet) 5 mg PO DAILY [facility] Folic Acid (Folic Acid 1 Mg Tablet) 1 mg PO DAILYCM [facility] Heparin Sodium (Beef Lung) (Heparin Pf Lock 10 Units/Ml 50 Units/5 Ml Syringe) 50 units IV UD PRN PRN Reason: PICC Line Heparin Flush Sodium Chloride () 1,000 mls @ 100 mls/hr IV .Q10H [facility] Pantoprazole Sodium 80 mg/ (Sodium Chloride) 100 mls @ 10 mls/hr CONT INF Q10H [facility] Last Admin: 09/23/20 05:52 Dose: 10 mls/hr Documented by: Vancomycin IV Pharmacy to Dose (1 each/ Sodium Chloride) 500 mls @ 250 mls/hr IV PRN PRN; Protocol PRN Reason: Rx to Dose Piperacillin Sod/Tazobactam (Sod 3.375 gm/ Sodium Chloride) 50 mls @ 12.5 mls/hr IV Q8 [facility] Sodium Chloride () 500 mls @ 15 mls/hr IV PRN PRN PRN Reason: Blood Transfusion Sodium Chloride () 250 mls @ 15 mls/hr IV .[id number] PRN PRN Reason: Saline Flush Sodium Chloride () 250 mls @ 15 mls/hr IV .[id number] PRN PRN Reason: Additional IVPB Infusion Vancomycin HCl 1,250 mg/ (Sodium Chloride) 275 mls @ 167 mls/hr IV Q12H [facility] Lactobacillus Acidophilus (Lactobacillus Acidophilus) 2 tablet PO TID [facility] Last Admin: 09/23/20 05:25 Dose: 2 tablet Documented by: Levothyroxine Sodium (Levothyroxine 150 Mcg Tablet) 150 mcg PO DAILY@0600 [facility] Last Admin: 09/23/20 05:25 Dose: 150 mcg Documented by: Cavalier Carbonate (Cavalier Carbonate 450 Mg Tablet) 450 mg PO QHS [facility] Methadone HCl (Methadone 5 Mg Tablet) 5 mg PO TID [facility] Last Admin: 09/23/20 05:10 Dose: Not Given Documented by: Montelukast Sodium (Montelukast 10 Mg Tablet) 10 mg PO QHS [facility] Multivitamins/Minerals (Multivitamins,Ther W-Minerals Tablet) 1 tablet PO DAILYCM [facility] Nicotine (Nicotine 21 Mg Patch) 21 mg TD QHS [facility] Nutritional Formula (Lactose Free) (Ensure Clear 120 Ml Liquid) 120 ml PO 4X/DAY [facility] Olanzapine (Olanzapine 5 Mg/Tab Tab.Rapdis) 5 mg PO TID [facility] Last Admin: 09/23/20 05:25 Dose: 5 mg Documented by: Ondansetron HCl (Ondansetron 4 Mg/2 Ml Vial) 4 mg IV Q8H PRN PRN PRN Reason: NAUSEA/VOMITING Sodium Chloride (0.9% Saline Lock 10 Ml Syringe) 10 - 40 ml IV UD PRN PRN Reason: Open End PICC Flush Last Admin: 09/23/20 05:11 Dose: 10 ml Documented by: Sodium Chloride (0.9 % Nacl (Sterile) Posiflush 10 Ml) 10 - 40 ml IV UD PRN PRN Reason: Port access or dressing change Thiamine HCl (Thiamine Hydrochloride 100 Mg Tablet) 100 mg PO DAILY [facility] Assessment/Plan Seen and examined agree with above assessment and plan
--- NOTE | 2020-09-23 04:21 | PCM.RX.CS ---
Consult Pharmacy has been consulted to manage selected antiobiotic: Vancomycin Type of Consult: New start Suspected Infection: Osteomyelitis Prior Doses of Antibiotics Received/Current Regimen: Medications Vancomycin HCl 1,250 mg/ (Sodium Chloride) 275 mls @ 167 mls/hr IV Q12H MARISSA Discontinued Medications Vancomycin HCl (Vancomycin) 1,000 mg in 200 mls @ 200 mls/hr IV X1 ONE Stop: 09/22/20 21:29 Last Admin: 09/23/20 01:18 Dose: Infused Labs: Sodium 138 mmol/L (136-145) 09/22/20 20:37 Potassium 4.4 mmol/L (3.5-5.1) 09/22/20 20:37 Chloride 108 mmol/L (98-107) H 09/22/20 20:37 Carbon Dioxide 26.0 mmol/L (21.0-32.0) 09/22/20 20:37 Anion Gap 4 (5-15) L 09/22/20 20:37 BUN 12 mg/dL (7-18) 09/22/20 20:37 Creatinine 0.84 mg/dL (0.70-1.30) 09/22/20 20:37 Est GFR (MDRD) Af Amer 123 mL/min (>60) 09/22/20 20:37 Est GFR (MDRD) Non-Af 101 mL/min (>60) 09/22/20 20:37 BUN/Creatinine Ratio 14.3 RATIO (10-20) 09/22/20 20:37 Glucose 90 mg/dL (74-106) 09/22/20 20:37 Microbiology: Microbiology 09/22/20 22:40 Stool Stool Occult Blood (KEM) - Final Occult Blood Positive 09/22/20 20:46 Nasal Secretion SARS-CoV-2 Antigen (Rapid) - Final Weight used for dosin.6 kg Estimated Creatinine Clearance: 86 Goal Trough: 15-20 mcg/mL Pharmacy Plan for Drug Dosing: Pharmacy Service will continue to monitor and adjust dosing as required. Follow-Up Labs: Trough Vancomycin Labs to be done on [date and time ordered]: 09/24/20 @1200
[2020-09-23] MEDS: 0.9% Saline Lock 10 ML Syringe IV ×5 (05:11→22:20)
[2020-09-23] MEDS: fentaNYL 100 MCG/2 ML Ampul 25 MCG IV (05:11)
[2020-09-23] MEDS: OLANZapine 5 MG/TAB TAB.RAPDIS PO ×3 (05:25→22:10)
[2020-09-23] MEDS: Levothyroxine 150 MCG Tablet PO (05:25)
[2020-09-23] MEDS: 0.9% Normal Saline 1,000 ML 100 ML IV ×2 (06:44→15:05)
--- NOTE | 2020-09-23 08:50 | NURSING ---
wound photo: parker anal area
[2020-09-23] MEDS: Folic Acid 1 MG Tablet PO (08:56)
[2020-09-23] MEDS: HYDROmorphone 1 MG/ML Syringe IV ×4 (08:56→23:24)
[2020-09-23] MEDS: Multivitamins,Ther W-Minerals Tablet 1 TABLET PO (08:56)
[2020-09-23] MEDS: Finasteride 5 MG Tablet PO (09:07)
[2020-09-23] MEDS: Thiamine Hydrochloride 100 MG Tablet PO (09:07)
[2020-09-23 09:11] LABS: Absolute Lymphocyte Count 2.24 X10^3/uL (0.83-4.51); Absolute Neutrophil Count 7.3 X10^3/uL (2.0-7.7); Basophil# 0.04 X10^3/uL; Basophil% 0.4 % (0-1); Eosinophil# 0.37 X10^3/uL; Eosinophils% 3.3 % (0-5); Hematocrit 31.5 % (40-54); Hemoglobin 9.7 g/dL (13.0-16.5); Lymphocyte # 2.24 X10^3/ul (0.83-4.51); Mean Corp Hgb Conc 30.8 g/dL (32-36); Mean Corpuscular Hgb 27.1 pg (27.0-32.0); Mean Platelet Vol. 8.4 fl (6.2-12.0); Monocyte# 1.24 X10^3/uL; Monocyte% 11.1 % (0-10); NRBC Flagged by Analyzer 0 % (0-5); Neutrophil # 7.28 X10^3/uL (2.7-7.7); Neutrophil % 64.8 % (47-70); Platelet Count 343 K/mm3 (150-450); RBC Distribution Width CV 14.9 % (11.6-14.6); Red Blood Count 3.58 M/mm3 (4.6-6.2); White Blood Count 11.2 K/mm3 (4.4-11.0)
--- NOTE | 2020-09-23 09:18 | CON.PCM_ITS ---
Problem List (1) Abdominal pain Status: Acute Qualifiers: Abdominal location: generalized Qualified Code(s): R10.84 - Generalized abdominal pain (2) GI bleed Status: Acute Qualifiers: GI bleed type/associated pathology: unspecified gastrointestinal hemorrhage type Qualified Code(s): K92.2 - Gastrointestinal hemorrhage, unspecified (3) Anemia Status: Acute Qualifiers: Anemia type: iron deficiency Iron deficiency anemia type: unspecified iron deficiency Qualified Code(s): D50.9 - Iron deficiency anemia, unspecified Reason for Consult Date of Consultation: 09/23/20 History of Present Illness: The patient is a 55 year old M presenting today from [facility] with complaints of fever, tachycardia and generally just feeling unwell. Patient states that he was recently discharged from following surgery for debridement of a sacral wound. Patient has been on chronic IV antibiotics including vancomycin and Zosyn due to osteomyelitis of the sacrum. Patient reports he stopped taking his antibiotics 3 days ago because he is having large amounts of diarrhea. Patient reports black stools, occult stool positive for blood. Patient reports significant back pain. contacted by ER physician and patient has been accepted but transfer center states they will not have a bed until later today. Patient denies shortness of breath, chest pain, nausea, vomiting. Patient reports diarrhea in generally ill feeling. Patient has also been complaining of some generalized abdominal pain. Past Medical History Past Medical History (Chronic Problems): Chronic Problems (Last Reviewed 09/23/20 @ 03:01 by Kelly Gastelum, AIR BRAKE TESTER-C) Osteomyelitis of sacrum (Chronic) Bipolar disorder (Chronic) BPH (benign prostatic hyperplasia) (Chronic) Essential hypertension (Chronic) Amphetamine abuse (Chronic) Opiate abuse, continuous (Chronic) IVDU (intravenous drug user) (Chronic) COPD (chronic obstructive pulmonary disease) (Chronic) Medical History: Medical History (Last Reviewed 09/23/20 @ 09:[address] Baljit Spencer MD) History of non-ST elevation myocardial infarction (NSTEMI) (Resolved) Onset Date: 06/26/20 I25.2 06/25/20 Essential hypertension (Chronic) I10 Amphetamine abuse (Chronic) F15.10 Opiate abuse, continuous (Chronic) F11.10 IVDU (intravenous drug user) (Chronic) F19.90 COPD (chronic obstructive pulmonary disease) (Chronic) J44.9 Non-Hodgkin lymphoma in remission (Resolved) C85.90 Takotsubo cardiomyopathy (Resolved) Onset Date: 06/2019 I51.81 Avascular necrosis of left femoral head M87.052 Bipolar disorder F31.9 Hepatitis C, chronic B18.2 Hypothyroidism E03.9 Intravenous drug abuse F19.10 NH lymphoma C85.90 Nicotine dependence F17.200 Rheumatoid arthritis M06.9 MALINDA (acute kidney injury) N17.9 Acute systolic CHF (congestive heart failure) I50.21 Bacteremia R78.81 Cholangitis K83.09 Encephalopathy G93.40 Rhabdomyolysis M62.82 Severe sepsis A41.9, R65.20 Large epidural abscess with probable compression of cauda equina 06/[address] elevation myocardial infarction (STEMI) of inferior wall (Inactive) Onset Date: 06/12/19 I21.19 Allergies methotrexate Adverse Reaction (Verified 08/29/20 12:19) Hives,Rash,Lesions naproxen [From Naprosyn] Adverse Reaction (Verified 08/29/20 12:19) Upset Stomach BEE VENOM Allergy (Uncoded 06/25/20 21:31) Anaphylaxis ROOT BEER Allergy (Uncoded 06/25/20 21:31) Hives Home Medications: Ambulatory Orders Medication Instructions Recorded Montelukast [Singulair] 10 mg PO QHS 02/14/19 Apixaban [Eliquis] 5 mg PO BID 08/29/20 Ergocalciferol (Vitamin D2) 50,000 unit PO FR 08/29/20 [Vitamin D2] Folic Acid 1 mg PO DAILY 08/29/20 Levothyroxine Sodium [Synthroid] 175 mcg PO DAILY 08/29/20 Randleman Carbonate [Randleman 450 mg PO QHS 08/29/20 Carbonate ER] Methadone HCl [(None)] 5 mg PO TID 08/29/20 Multivitamin with Minerals 1 tablet PO DAILY 08/29/20 [Multivitamins with Minerals] Nicotine [Nicoderm Cq (PBKC)] 21 mg TD QHS 08/29/20 Polyethylene Glycol 3350 [Miralax] 17 gm PO DAILY 08/29/20 Sennosides/Docusate Sodium 2 tablet PO QHS 08/29/20 [Sennosides-Docusate Sodium Tab] Thiamine HCl 100 mg PO DAILY 08/29/20 Dicyclomine HCl [Bentyl] 10 mg PO BID PRN 09/23/20 Finasteride [Proscar] 5 mg PO DAILY 09/23/20 Lactobacillus Rhamnosus GG 1 each PO BID 09/23/20 [Culturelle] Meropenem-0.9% Sodium Chloride 1 gm IV TID 09/23/20 [Meropenem-0.9% NaCl 1 Gram/50] Olanzapine [Zyprexa] 5 mg PO TID 09/23/20 Vancomycin/0.9 % Sod Chloride 750 mg IV Q12H PRN 09/23/20 [Vanco 750 mg/150 ml-0.9% NaCl] Surgical History: Surgical History (Last Reviewed 09/23/20 @ 09:[address] Baljit Spencer MD) H/O arthroscopic knee surgery Z98.890 H/O total hip arthroplasty Z96.649 History of appendectomy Z90.49 History of cholecystectomy Z90.49 History of left heart catheterization Onset Date: 06/12/19 Z98.890 04/07/2018 facial reconstructive surgery Surgical History: appendectomy, arthroscopy, knee, cholecystectomy, total hip arthroplasty, - - Facial reconstructive surgery. Sacral osteomyelitis Psychiatric History: Bipolar Smoking Status: Current every day smoker Alcohol: None Drugs: None, - - *Family History Maternal History Items: Cancer Paternal History Items: Cancer Review of Systems Constitutional: Reports: Malaise, Weakness Gastrointestinal: Reports: Abdominal Pain, Diarrhea Patient Problems: Active and Suspected Problems (Last Reviewed 09/23/20 @ 03:01 by Kelly Gastelum AIR BRAKE TESTER-C) GI bleed (Acute) Anemia (Acute) - Physical Exam Vitals/I&O's: Vital Signs Temp Pulse Resp BP Pulse Ox 98.3 F 84 18 117/81 H 99 09/23/20 06:40 09/23/20 06:40 09/23/20 06:40 09/23/20 06:40 09/23/20 06:40 Oxygen Delivery Method Room Air Weight: 144 lb 9.972 oz Body Mass Index (BMI) 23.0 Finger Stick Blood Glucose 118 Intake and Output for Last 24 Hours 09/21/20 09/22/20 09/23/20 23:59 23:59 23:59 Intake Total 1000 / 1000 2670 / 2670 Balance 1000 / 1000 2670 / 2670 General: Alert, Oriented x3 Lungs: Clear to auscultation Cardiovascular: Regular rate, Regular Rhythm, No murmurs Abdomen: Tender - No rebound guarding or peritoneal signs are identified. Microbiology Past 72 Hours 09/22/20 22:40 Stool Stool Occult Blood (KEM) - Final Occult Blood Positive 09/22/20 20:46 Nasal Secretion SARS-CoV-2 Antigen (Rapid) - Final Laboratory Results 09/22/20 20:00: Lactic Acid 0.8 09/22/20 20:37: WBC 13.9 H, RBC 2.83 L, Hgb 7.7 L, Hct 25.3 L, MCV 89.4, MCH 27.2, MCHC 30.4 L, RDW Std Deviation 48.3 H, RDW Coeff of Re 14.7 H, Plt Count 403, MPV 8.4, Immature Gran % (Auto) 0.400, Neut % (Auto) 76.3 H, Lymph % (Auto) 13.2 L, Floyd % (Auto) 9.6, Eos % (Auto) 0.2, Baso % (Auto) 0.3, Absolute Neuts (auto) 10.6 H, Absolute Lymphs (auto) 1.83, Nucleated RBC % 0 09/22/20 20:37: PT 22.7 H, INR 2.1, APTT 47.7 H 09/22/20 20:37: Sodium 138, Potassium 4.4, Chloride 108 H, Carbon Dioxide 26.0, Anion Gap 4 L, BUN 12, Creatinine 0.84, Estim Creat Clear Calc 86.31, Est GFR (MDRD) Af Amer 123, Est GFR (MDRD) Non-Af 101, BUN/Creatinine Ratio 14.3, Glucose 90, Calcium 8.1 L, Total Bilirubin 0.80, AST 23, ALT 18, Alkaline Phosphatase 126 H, Total Protein 6.3 L, Albumin 2.1 L, Globulin 4.2, Albumin/Globulin Ratio 0.5 L 09/22/20 20:37: Procalcitonin 0.27 H 09/22/20 22:10: Blood Type O POSITIVE, Antibody Screen NEGATIVE, Crossmatch See Detail 09/22/20 22:55: Randleman 0.40 L 09/23/20 09:00: WBC 11.2 H, RBC 3.58 L, Hgb 9.7 L, Hct 31.5 L, MCV 88.0, MCH 27.1, MCHC 30.8 L, RDW Std Deviation 48.0 H, RDW Coeff of Re 14.9 H, Plt Count 343, MPV 8.4, Immature Gran % (Auto) 0.400, Neut % (Auto) 64.8, Lymph % (Auto) 20.0, Floyd % (Auto) 11.1 H, Eos % (Auto) 3.3, Baso % (Auto) 0.4, Absolute Neuts (auto) 7.3, Absolute Lymphs (auto) 2.24, Nucleated RBC % 0 09/23/20 09:00: Sodium Pending, Potassium Pending, Chloride Pending, Carbon Dioxide Pending, Anion Gap Pending, BUN Pending, Creatinine Pending, Est GFR (MDRD) Af Amer Pending, Est GFR (MDRD) Non-Af Pending, BUN/Creatinine Ratio Pending, Glucose Pending, Calcium Pending, Total Bilirubin Pending, AST Pending, ALT Pending, Alkaline Phosphatase Pending, Total Protein Pending, Albumin Pen ding Current Medications Acetaminophen (Acetaminophen 325 Mg Tablet) 650 mg PO Q6H PRN PRN PRN Reason: Pain Score 1-10/Temp > 100.7 F Calamine/Phenol (Menthol/Lanolin/Calamine/Znox 113 Gm Tube) 1 applic TOPICAL BID [facility]; Protocol Finasteride (Finasteride 5 Mg Tablet) 5 mg PO DAILY [facility] Last Admin: 09/23/20 09:07 Dose: 5 mg Documented by: Folic Acid (Folic Acid 1 Mg Tablet) [facility] Last Admin: 09/23/20 08:56 Dose: 1 mg Documented by: Heparin Sodium (Beef Lung) (Heparin Pf Lock 10 Units/Ml 50 Units/5 Ml Syringe) 50 units IV UD PRN PRN Reason: PICC Line Heparin Flush Hydromorphone HCl (Hydromorphone 1 Mg/Ml Syringe) 0.5 - 1 mg IV Q4H PRN PRN PRN Reason: Pain Score 1-10 Last Admin: 09/23/20 08:56 Dose: 1 mg Documented by: Sodium Chloride () 1,000 mls @ 100 mls/hr IV .Q10H [facility] Last Admin: 09/23/20 06:44 Dose: 100 mls/hr Documented by: Pantoprazole Sodium 80 mg/ (Sodium Chloride) 100 mls @ 10 mls/hr CONT INF Q10H [facility] Last Admin: 09/23/20 05:52 Dose: 10 mls/hr Documented by: Vancomycin IV Pharmacy to Dose (1 each/ Sodium Chloride) 500 mls @ 250 mls/hr IV PRN PRN; Protocol PRN Reason: Rx to Dose Piperacillin Sod/Tazobactam (Sod 3.375 gm/ Sodium Chloride) 50 mls @ 12.5 mls/hr IV Q8 [facility] Last Admin: 09/23/20 06:44 Dose: 12.5 mls/hr Documented by: Sodium Chloride () 500 mls @ 15 mls/hr IV PRN PRN PRN Reason: Blood Transfusion Sodium Chloride () 250 mls @ 15 mls/hr IV .[id number] PRN PRN Reason: Saline Flush Sodium Chloride () 250 mls @ 15 mls/hr IV .[id number] PRN PRN Reason: Additional IVPB Infusion Vancomycin HCl 1,250 mg/ (Sodium Chloride) 275 mls @ 167 mls/hr IV Q12H [facility] Lactobacillus Acidophilus (Lactobacillus Acidophilus) 2 tablet PO TID [facility] Last Admin: 09/23/20 05:25 Dose: 2 tablet Documented by: Levothyroxine Sodium (Levothyroxine 150 Mcg Tablet) 150 mcg PO DAILY@0600 [facility] Last Admin: 09/23/20 05:25 Dose: 150 mcg Documented by: Randleman Carbonate (Randleman Carbonate 300mg Capsule) 300 mg PO QHS [facility] Randleman Carbonate (Randleman Carbonate 150 Mg Capsule) 150 mg PO QAM [facility] Methadone HCl (Methadone 5 Mg Tablet) 5 mg PO TID [facility] Last Admin: 09/23/20 05:10 Dose: Not Given Documented by: Montelukast Sodium (Montelukast 10 Mg Tablet) 10 mg PO QHS [facility] Multivitamins/Minerals (Multivitamins,Ther W-Minerals Tablet) 1 tablet PO DAILYCM [facility] Last Admin: 09/23/20 08:56 Dose: 1 tablet Documented by: Nicotine (Nicotine 21 Mg Patch) 21 mg TD QHS [facility] Nutritional Formula (Lactose Free) (Ensure Clear 120 Ml Liquid) 120 ml PO 4X/DAY [facility] Olanzapine (Olanzapine 5 Mg/Tab Tab.Rapdis) 5 mg PO TID [facility] Last Admin: 09/23/20 05:25 Dose: 5 mg Documented by: Ondansetron HCl (Ondansetron 4 Mg/2 Ml Vial) 4 mg IV Q8H PRN PRN PRN Reason: NAUSEA/VOMITING Sodium Chloride (0.9% Saline Lock 10 Ml Syringe) 10 - 40 ml IV UD PRN PRN Reason: Open End PICC Flush Last Admin: 09/23/20 09:04 Dose: 30 ml Documented by: Sodium Chloride (0.9 % Nacl (Sterile) Posiflush 10 Ml) 10 - 40 ml IV UD PRN PRN Reason: Port access or dressing change Thiamine HCl (Thiamine Hydrochloride 100 Mg Tablet) 100 mg PO DAILY [facility] Last Admin: 09/23/20 09:07 Dose: 100 mg Documented by: Assessment/Plan All Active Problems (Last Reviewed 09/23/20 @ 03:01 by Kelly Gastelum, AIR BRAKE TESTER-C) GI bleed (Acute) Anemia (Acute) Abdominal pain (Acute) History of non-ST elevation myocardial infarction (NSTEMI) (Resolved 06/26/20) Non-Hodgkin lymphoma in remission (Resolved) Takotsubo cardiomyopathy (Resolved 06/2019) Plan is to perform an upper endoscopy on him today. After this I am going to order a CAT scan with IV and p.o. contrast. Risk benefits of the procedure have been reviewed with the patient all questions asked have been answered. He is willing to proceed.
[2020-09-23 09:43] LABS: ALB/GLOB Ratio 0.5 RATIO (0.9-2.4); AST(SGOT) 19 U/L (15-37); Alanine Aminotransfer ALT/SGPT 17 U/L (16-61); Albumin, Serum 1.8 g/dL (3.2-5.0); Alkaline Phosphatase 116 U/L (45-117); Anion Gap 4 (5-15); BUN 12 mg/dL (7-18); BUN/Creat Ratio 13.3 RATIO (10-20); Calcium,Total 7.8 mg/dL (8.5-10.1); Chloride 112 mmol/L (98-107); EST Glomerular Filtration Rate 93 mL/min (>60); Est Glom Filt Rate - Afr Amer 113 mL/min (>60); Estimated Creatinine Clearance 85.66 ml/min; Globulin 3.9 g/dL (2.2-4.2); Glucose 81 mg/dL (74-106); Protein, Total 5.7 g/dL (6.4-8.2); Sodium Level 141 mmol/L (136-145)
[2020-09-23] MEDS: Lithium Carbonate 150 MG Capsule PO (10:48)
--- NOTE | 2020-09-23 11:25 | NURSING ---
pt to endo for egd, via bed
[2020-09-23] MEDS: Menthol/Lanolin/Calamine/Znox 113 GM Tube 1 APPLIC TOPICAL ×2 (11:32→22:21)
--- NOTE | 2020-09-23 11:36 | CASEMGMT ---
Social Work Note Per resident services director questions, pt has completed HCPOA and provided copies to [facility]. Pt hasn't completed LW. SW printed off HCPOA and HCPOA is currently pt's son Neil. SW in to speak with pt. Pt states he would like to change his HCPOA. SW will provide pt with's HCPOA documents and will follow up with pt to complete documents. Sho Angelo CHANGE MANAGEMENT, VALIDATION SPECIALIST
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
--- NOTE | 2020-09-23 12:22 | CASEMGMT ---
Per [facility] website, the following tertiary facilities are in network: [facility], [place], [facility], [facility], [facility], [facility], [place], [facility] and .
--- NOTE | 2020-09-23 12:30 | EGD_PTH ---
PATIENT: VITA MAYORGA LOC: MS3 U#:[id number] AGE/SX: 55/M ROOM: [facility] RE09/23/[address]: Dr. Anthony Otero MD : 1965 BED: 1 DIS: 09/29/2020 SPEC #: [id number] RECD: 09/23/20 12:55 STATUS: LIVAN REMundo #: [id number] JAMES: 09/23/20 12:[address]: Baljit Spencer DEPT: SURGICAL PATHOLOGY RECD BY: Janet Van ENTERED: 09/23/20 13:18 SP TYPE: EGD BIOPSY OTHR DR: MD Dr. David Jackman DO Dr. Paul Nielsen, MD Dr. Rohini Kalisetti, MD Dr. Robert Leininger, MD Tissues: Gastric mucous membrane Procedures: Surgery Specimen Level IV Comments: @ Ordering doctor for SUIV edited from to @ chiquis LOGAN at 09/23/20 1338 @ Submitting doctor edited from to @ by DESMOND at 09/23/20 1338 HEADER OPERATION: EGD ([facility] PRE-OP DIAGNOSIS: Abdominal pain, GI bleed; anemia TISSUE SUBMITTED: Antrum for H. pylori and path MICROSCOPIC DIAGNOSIS Antrum biopsy: Minimal gastritis. See microscopic description and comment. FILIPPO:jani 09/24/2020 COMMENT The results of immunohistochemistry for Helicobacter pylori will be reported separately ([id number]). MICROSCOPIC DESCRIPTION Slides are reviewed. The specimen shows fragments of gastric mucosa with chronic inflammatory cell infiltrates in the lamina propria consisting of lymphocytes and plasma cells, consistent with minimal chronic gastritis. GROSS DESCRIPTION Received in fixative is one container labeled with the patient's name and designated antrum. The specimen consists of one irregular fragment of light valiente soft tissue that measures 0.7 x 0.2 x 0.1 cm. The specimen is totally submitted in one cassette. / FILIPPO:jani 09/23/20 TC:3 CPT: 61432
--- NOTE | 2020-09-23 12:30 | IMM_PTH ---
PATIENT: VITA MAYORGA LOC: MS3 U#:[id number] AGE/SX: 55/M [place] [facility] [place]23/[address]: Dr. Anthony Otero MD : 1965 BED: 1 DIS: 09/29/2020 SPEC #: [id number] RECD: 09/23/20 13:55 STATUS: SOUT REQ #: [id number] JAMES: 09/23/20 12:[address]: Baljit Spencer DEPT: IMMUNOHISTOCHEMISTRY RECD BY: Vibha De León ENTERED: 09/23/20 13:55 SP TYPE: IMMUNO OTHR DR: DO Dr. Marques Orellana MD Dr. Rohini Kalisetti, MD Dr. Robert Leininger, MD Tissues: Stomach, NOS Procedures: H Pylori (initial) PHYSICIAN & INSTITUTION [place] [id number] SPECIMEN INFORMATION: Tissue Source: Antrum Clinical Info: Abdominal pain, GI bleed, anemia Specimen Number: [id number] CPT code: 10071 METHODOLOGY: Deparaffinized sections of prefer/formalin-fixed tissue or PAP/DQ stained slides are incubated with monoclonal/polyclonal antibodies/oligonucleotide probes. Localization is made via biotin free immunoperoxidase method. Appropriate controls are performed and reacted as expected. Results on target cell population are indicated in the following table: RESULTS: ANTIBODY / CLONE RESULT H Pylori (polyclonal) negative These tests were developed and their performance characteristics determined by [facility]. They may not have been cleared or approved by the U.S. Food and Drug Administration. The FDA has determined that such clearance or approval is not necessary. INTERPRETATION: Antrum, biopsy: Negative for Helicobacter pylori organisms. SJ:jani 09/24/2020
--- NOTE | 2020-09-23 12:42 | CT_ITS ---
STUDY: CT ABDOMEN AND PELVIS WITH CONTRAST REASON FOR EXAM: Male, 55 years old. abd pain RADIATION DOSAGE (If Supplied By Facility): CTDIvol = ( 13.76 ) mGy, DLP = ( 737.43 ) mGycm TECHNIQUE: Transaxial images were obtained from the dome of the diaphragm to the symphysis pubis with oral contrast. Oral and amp; IV Gastrografin and amp; 100mL Isovue-300 was administered. Sagittal and coronal images were reconstructed. Individualized dose optimization techniques were used for this CT. COMPARISON: 08/29/2020 FINDINGS: Some dependent bibasilar atelectasis. The visualized portions of the heart are within normal limits. No change in the 3 cm cyst in the anterior aspect of the medial segment of the left lobe of the liver. There is non-visualization of the gallbladder, which may be secondary to either contraction or a prior cholecystectomy. Pneumobilia likely related to prior sphincterotomy. Normal spleen. Normal pancreas. Normal bilateral adrenal glands. Normal right kidney. Normal left kidney. Normal visualized stomach. Diverticulum of third portion duodenum. Normal colon. There is non-visualization of the appendix. Normal abdominal aorta. Normal inferior vena cava. Normal retroperitoneum. Normal urinary bladder. Normal abdominal wall. Left hip arthroplasty which produces streak artifact obscures the pelvis. Status post posterior decompression the lower lumbar spine. Destruction of the superior endplate of S1 and fracture or destruction at S1/S2 possibly from osteomyelitis. CT/Abdomen/Pelvis WITH Contrast IMPRESSION: No acute abnormality. Status post posterior decompression lower lumbar spine with possible osteomyelitis of the upper sacrum. Electronically Signed: Erick Boles MD at 16:54 EDT Tel , Service support ,
--- NOTE | 2020-09-23 12:43 | OP.CCLET_ITS ---
09/23/2020 Vi Velásquez Md Re : Upper GI endoscopy procedure for Cody Mitchell Didier This procedure was performed on Wednesday, September 23, 2020. My impressions and recommendations are as follows: Impressions : - Z-line regular, 39 cm from the incisors. No specimens collected. - Gastritis. Biopsied. - Normal examined duodenum. No specimens collected. Recommendations : - [facility]. - Advance diet as tolerated. - Continue present medications. - Await pathology results. - Repeat upper endoscopy PRN for surveillance. - Return to primary care physician (date not yet determined). My findings are described in the full procedure note, which is enclosed. If I can be of further assistance, please feel free to contact me at Doctor phone number(s): , Fax: [phone], Work: . Sincerely, MD Baljit Santos MD 09/23/2020 12:42:38 PM This report has been signed electronically.
--- NOTE | 2020-09-23 12:43 | OP.EGD_ITS ---
Patient Name: Cody Acosta Procedure Date: 09/23/2020 12:24 PM Date of : 1965 Age: 55 Procedure: Upper GI endoscopy Indications: Heme positive stool, Active gastrointestinal bleeding Providers: Baljit Spencer MD Medicines: See the Anesthesia note for documentation of the administered medications Patient Profile: This is a 55 year old male. Refer to note in patient chart for documentation of history and physical. Complications: No immediate complications. Procedure: Pre-Anesthesia Assessment: - Prior to the procedure, a History and Physical was performed, and patient medications and allergies were reviewed. The patient's tolerance of previous anesthesia was also reviewed. The risks and benefits of the procedure and the sedation options and risks were discussed with the patient. All questions were answered, and informed consent was obtained. Prior Anticoagulants: The patient has taken no previous anticoagulant or antiplatelet agents. ASA Grade Assessment: III - A patient with severe systemic disease. After reviewing the risks and benefits, the patient was deemed in satisfactory condition to undergo the procedure. After obtaining informed consent, the endoscope was passed under direct vision. Throughout the procedure, the patient's blood pressure, pulse, and oxygen saturations were monitored continuously. The gastroscope was introduced through the mouth, and advanced to the second part of duodenum. The upper GI endoscopy was accomplished without difficulty. The patient tolerated the procedure well. Scope In: 12:35:46 PM Scope Out: 12:39:14 PM Total Procedure Duration Time 0 hours 3 minutes 28 seconds Findings: The Z-line was regular and was found 39 cm from the incisors. No biopsies or other specimens were collected for this exam. Diffuse moderate inflammation characterized by linear erosions was found in the entire examined stomach. Biopsies were taken with a cold forceps for Helicobacter pylori testing. The examined duodenum was normal. No biopsies or other specimens were collected for this exam. Impression: - Z-line regular, 39 cm from the incisors. No specimens collected. - Gastritis. Biopsied. - Normal examined duodenum. No specimens collected. Recommendation: - [facility]. - Advance diet as tolerated. - Continue present medications. - Await pathology results. - Repeat upper endoscopy PRN for surveillance. - Return to primary care physician (date not yet determined). Procedure Code(s): --- Professional --- 59856, Esophagogastroduodenoscopy, flexible, transoral; with biopsy, single or multiple Diagnosis Code(s): --- Professional --- K29.70, Gastritis, unspecified, without bleeding R19.5, Other fecal abnormalities K92.2, Gastrointestinal hemorrhage, unspecified CPT copyright 2017 [employer]. All rights reserved. The codes documented in this report are preliminary and upon construction superintendent review may be revised to meet current compliance requirements. MD Baljit Santos MD 09/23/2020 12:42:38 PM This report has been signed electronically. Number of Addenda: 0 Note Initiated On: 09/23/2020 12:24 PM
--- NOTE | 2020-09-23 15:00 | CHAPLAIN ---
Type of Pastoral Visit _x__ Initial Visit ___ Follow-up Visit ___ On-call Visit ___ General Patient Visit ___ Spiritual Assessment ___ Family Conference ___ Bereavement ___ Rapid Response ___ Code Blue ___ Other (describe below) Pastoral Care Referral From _x__ Patient ___ Family ___ Nurse ___ Physician ___ Blade Changer ___ Airworthiness Safety Inspector ___ Other (describe below) Sacrament/Intervention _x__ Active listening ___ Anointing ___ Anabaptism ___ Bereavement ___ Communion _x__ Eulalia exploration ___ _x__ Life review _x__ Prayer ___ Reconciliation ___ Sacrament of Sick _x__ Supportive presence ___ Wedding ___ Other (describe below) Pastoral Comments patient is tearful throughout visit; pt describes feelings; pt asks about spiritual matters and expresses emotional hurts and concerns; pt states I don't know what to do; prayer requested; further support welcomed by pt
--- NOTE | 2020-09-23 15:03 | CASEMGMT ---
Pt screened with [facility] Palliative Screening Tool due to strata 3. Pt did not meet criteria.
--- NOTE | 2020-09-23 15:50 | CASEMGMT ---
Social Work Note SW attempted to meet with pt to follow up on advanced directives. Pt currently off floor. SW leaving soon for the day, SW will follow up with pt tomorrow. Sho Angelo ERP IMPLEMENTATION CONSULTANT, TRANSPORT OPERATIONS INSPECTOR
--- NOTE | 2020-09-23 18:16 | CCHN_ITS ---
Hospitalist Note Patient was seen and examined today, he had an EGD that showed some gastritis today, I will repeat his H&H in the morning, I do not think the patient needs to be transferred to another facility at this time, I talked briefly with infectious diseases and I felt that he should remain on his present antibiotic coverage. Patient complains of some urinary urgency at times-he is already on Proscar and so I have decided to add Flomax with the thought that he may be having some problems associated with BPH. Patient also had complained of diarr hea at the nursing facility but he has had no complaints today of any diarrhea, I told him that we could give him some Imodium if he had loose bowel movements.
[2020-09-23] MEDS: Tamsulosin HCl 0.4 MG Capsule PO (18:53)
--- NOTE | 2020-09-23 18:55 | PCM.HP.ID ---
Problem List (1) Osteomyelitis of sacrum Status: Chronic Reason for Consult: osteo Consulted by: Dr. Rojas History of Present Illness: The patient is a 55 year old M with heroin and meth use as recently as June, when he was found down, admitted to [facility] with mssa bacteremia. MRI done due to back pain which showed epidural abscess, cauda equina. Transferred to for management. Readmitted in August, discharged on vanc/zosyn for sacral osteo to [facility]. Now with several days fever, diarrhea, stomach pain, blood in stool. Reports recent neg cdiff test. Has gotten covid vaccine. Admitted on vanc/zosyn. EGD today. Full ROS performed and neg except as noted above. - Medical History Past Medical History (Chronic Problems): Chronic Problems (Last Reviewed 09/23/20 @ 09:[address] Baljit Spencer MD) Osteomyelitis of sacrum (Chronic) Bipolar disorder (Chronic) BPH (benign prostatic hyperplasia) (Chronic) Essential hypertension (Chronic) Amphetamine abuse (Chronic) Opiate abuse, continuous (Chronic) IVDU (intravenous drug user) (Chronic) COPD (chronic obstructive pulmonary disease) (Chronic) Allergies/Adverse Reactions: Allergies methotrexate Adverse Reaction (Verified 08/29/20 12:19) Hives,Rash,Lesions naproxen [From Naprosyn] Adverse Reaction (Verified 08/29/20 12:19) Upset Stomach BEE VENOM Allergy (Uncoded 06/25/20 21:31) Anaphylaxis ROOT BEER Allergy (Uncoded 06/25/20 21:31) Hives Home Medications: Ambulatory Orders Medication Instructions Recorded Montelukast [Singulair] 10 mg PO QHS 02/14/19 Apixaban [Eliquis] 5 mg PO BID 08/29/20 Ergocalciferol (Vitamin D2) 50,000 unit PO FR 08/29/20 [Vitamin D2] Folic Acid 1 mg PO DAILY 08/29/20 Levothyroxine Sodium [Synthroid] 175 mcg PO DAILY 08/29/20 [place] Carbonate [[place] 450 mg PO QHS 08/29/20 Carbonate ER] Methadone HCl [(None)] 5 mg PO TID 08/29/20 Multivitamin with Minerals 1 tablet PO DAILY 08/29/20 [Multivitamins with Minerals] Nicotine [Nicoderm Cq (PBKC)] 21 mg TD QHS 08/29/20 Polyethylene Glycol 3350 [Miralax] 17 gm PO DAILY 08/29/20 Sennosides/Docusate Sodium 2 tablet PO QHS 08/29/20 [Sennosides-Docusate Sodium Tab] Thiamine HCl 100 mg PO DAILY 08/29/20 Dicyclomine HCl [Bentyl] 10 mg PO BID PRN 09/23/20 Finasteride [Proscar] 5 mg PO DAILY 09/23/20 Lactobacillus Rhamnosus GG 1 each PO BID 09/23/20 [Culturelle] Meropenem-0.9% Sodium Chloride 1 gm IV TID 09/23/20 [Meropenem-0.9% NaCl 1 Gram/50] Olanzapine [Zyprexa] 5 mg PO TID 09/23/20 Vancomycin/0.9 % Sod Chloride 750 mg IV Q12H PRN 09/23/20 [Vanco 750 mg/150 ml-0.9% NaCl] - Social History SMOKING STATUS:: Current some day smoker Vital Signs Temp Pulse Resp BP Pulse Ox 99.6 F H 103 H 18 111/63 95 09/23/20 13:01 09/23/20 13:01 09/23/20 13:01 09/23/20 13:01 09/23/20 17:50 Oxygen Delivery Method Room Air Weight: 65.6 kg Body Mass Index (BMI) 23.0 Finger Stick Blood Glucose 118 Microbiology Past 72 Hours 09/23/20 15:30 C. difficile DNA Amplification - Final Stool 09/22/20 22:40 Stool Occult Blood (KEM) - Final Stool Occult Blood Positive 09/22/20 20:46 SARS-CoV-2 Antigen (Rapid) - Final Nasal Secretion Laboratory Tests Past 24 Hrs 09/22/20 09/22/20 09/22/20 20:00 20:37 20:37 WBC 13.9 H RBC 2.83 L Hgb 7.7 L Hct 25.3 L MCV 89.4 MCH 27.2 MCHC 30.4 L RDW Std Deviation 48.3 H RDW Coeff of Re 14.7 H Plt Count 403 MPV 8.4 Immature Gran % (Auto) 0.400 Neut % (Auto) 76.3 H Lymph % (Auto) 13.2 L [place] % (Auto) 9.6 Eos % (Auto) 0.2 Baso % (Auto) 0.3 Absolute Neuts (auto) 10.6 H Absolute Lymphs (auto) 1.83 Nucleated RBC % 0 PT 22.7 H INR 2.1 APTT 47.7 H Sodium Potassium Chloride Carbon Dioxide Anion Gap BUN Creatinine Estim Creat Clear Calc Est GFR (MDRD) Af Amer Est GFR (MDRD) Non-Af BUN/Creatinine Ratio Glucose Lactic Acid 0.8 Calcium Total Bilirubin AST ALT Alkaline Phosphatase Total Protein Albumin Globulin Albumin/Globulin Ratio Procalcitonin [place] Blood Type Antibody Screen Crossmatch 09/22/20 09/22/20 09/22/20 20:37 20:37 22:10 WBC RBC Hgb Hct MCV MCH MCHC RDW Std Deviation RDW Coeff of Re Plt Count MPV Immature Gran % (Auto) Neut % (Auto) Lymph % (Auto) [place] % (Auto) Eos % (Auto) Baso % (Auto) Absolute Neuts (auto) Absolute Lymphs (auto) Nucleated RBC % PT INR APTT Sodium 138 Potassium 4.4 Chloride 108 H Carbon Dioxide 26.0 Anion Gap 4 L BUN 12 Creatinine 0.84 Estim Creat Clear Calc 86.31 Est GFR (MDRD) Af Amer 123 Est GFR (MDRD) Non-Af 101 BUN/Creatinine Ratio 14.3 Glucose 90 Lactic Acid Calcium 8.1 L Total Bilirubin 0.80 AST 23 ALT 18 Alkaline Phosphatase 126 H Total Protein 6.3 L Albumin 2.1 L Globulin 4.2 Albumin/Globulin Ratio 0.5 L Procalcitonin 0.27 H [place] Blood Type O POSITIVE Antibody Screen NEGATIVE Crossmatch See Detail 09/22/20 09/23/20 09/23/20 22:55 09:00 09:00 WBC 11.2 H RBC 3.58 L Hgb 9.7 L Hct 31.5 L MCV 88.0 MCH 27.1 MCHC 30.8 L RDW Std Deviation 48.0 H RDW Coeff of Re 14.9 H Plt Count 343 MPV 8.4 Immature Gran % (Auto) 0.400 Neut % (Auto) 64.8 Lymph % (Auto) 20.0 [place] % (Auto) 11.1 H Eos % (Auto) 3.3 Baso % (Auto) 0.4 Absolute Neuts (auto) 7.3 Absolute Lymphs (auto) 2.24 Nucleated RBC % 0 PT INR APTT Sodium 141 Potassium 4.0 Chloride 112 H Carbon Dioxide 25.0 Anion Gap 4 L BUN 12 Creatinine 0.90 Estim Creat Clear Calc 85.66 Est GFR (MDRD) Af Amer 113 Est GFR (MDRD) Non-Af 93 BUN/Creatinine Ratio 13.3 Glucose 81 Lactic Acid Calcium 7.8 L Total Bilirubin 0.90 AST 19 ALT 17 Alkaline Phosphatase 116 Total Protein 5.7 L Albumin 1.8 L Globulin 3.9 Albumin/Globulin Ratio 0.5 L Procalcitonin [place] 0.40 L Blood Type Antibody Screen Crossmatch - Other Studies Radiology: [] reviewed Other Studies: [] Route of nutrition/ use of supplements: [] Nutritional Intake: [] IV Site: [] Domínguez Catheter: [] - Physical Exam General: Alert, Oriented x3, Cooperative, No apparent distress HEENT: Atraumatic, PERRLA, EOMI Neck: Supple, No Nodes Lungs: Clear to auscultation, Normal air movement Cardiovascular: Regular rate, Regular Rhythm Abdomen: Soft, Non-Distended, Tender - mild soreness Extremities: No edema Skin: No rashes IV Site: PICC, without redness Musculoskeletal: No Tenderness to Palpation of Joints or Extremities Neurological: Cranial nerves II-XII grossly intact - Assessment/Plan Antibiotics: [] Assessment/Plan: [] Active and Suspected Problems (Last Reviewed 09/23/20 @ 09:[address] Baljit Spencer MD) GI bleed (Acute) Anemia (Acute) Abdominal pain (Acute) sacral osteo - on vanc/zosyn. EGD and CT abd/pelvis today. Will request discharge summary, cxs, and ID notes from recent stay. Will check cdiff due to diarrhea, fever, and blood in stool while on iv abx. Will follow, thank you, d/w primary team
[2020-09-23] MEDS: Montelukast 10 MG Tablet PO (22:10)
[2020-09-23] MEDS: Lithium Carbonate 300mg Capsule 300 MG PO (22:12)
[2020-09-24] MEDS: 0.9% Normal Saline 1,000 ML 100 ML IV ×2 (01:58→12:03)
[2020-09-24 02:03] VITALS: BP 123/68; PULSE 111; RESP 18; TEMP 37.6; O2SAT 94
[2020-09-24] MEDS: 0.9% Saline Lock 10 ML Syringe IV ×6 (03:09→20:47)
[2020-09-24] MEDS: HYDROmorphone 1 MG/ML Syringe IV ×5 (03:47→20:46)
[2020-09-24] MEDS: Pramipexole Di-HCl 0.125 MG Tablet PO (04:29)
[2020-09-24] MEDS: Levothyroxine 150 MCG Tablet PO (05:43)
[2020-09-24 05:54] LABS: Absolute Neutrophil Count 6.3 X10^3/uL (2.0-7.7); Basophil# 0.05 X10^3/uL; Basophil% 0.4 % (0-1); Eosinophil# 0.44 X10^3/uL; Eosinophils% 3.4 % (0-5); Hematocrit 29.2 % (40-54); Hemoglobin 9.1 g/dL (13.0-16.5); Lymphocyte % 38.5 % (19-41); Mean Corp Hgb Conc 31.2 g/dL (32-36); Mean Corpuscular Hgb 27.5 pg (27.0-32.0); Mean Corpuscular Volume 88.2 fL (80-94); Mean Platelet Vol. 8.3 fl (6.2-12.0); Monocyte# 1.19 X10^3/uL; Monocyte% 9.2 % (0-10); NRBC Flagged by Analyzer 0 % (0-5); Neutrophil # 6.26 X10^3/uL (2.7-7.7); Neutrophil % 48.1 % (47-70); Platelet Count 315 K/mm3 (150-450); RBC Distribution Width CV 15.1 % (11.6-14.6); Red Blood Count 3.31 M/mm3 (4.6-6.2)
--- NOTE | 2020-09-24 06:00 | NURSING ---
Addendum entered by Car Guzman 09/24/20 07:32: (2) Harvey tablets wasted in [facility]royer. Witnessed by Hanna Tamez RN. Original Note: Informed by senior catering sales manager and RN that two white pills were found in patient's bed when they were changing his linens. Call made to pharmacy and pills identified as (2) 10-325mg Norcos. This RN asked patient about them, whether a visitor could have brought them in and patient denied knowing anything about the pills.
[2020-09-24 06:19] LABS: Anion Gap 6 (5-15); BUN 8 mg/dL (7-18); BUN/Creat Ratio 8.1 RATIO (10-20); Calcium,Total 7.6 mg/dL (8.5-10.1); Chloride 113 mmol/L (98-107); Creatinine, Serum 0.99 mg/dL (0.70-1.30); EST Glomerular Filtration Rate 84 mL/min (>60); Est Glom Filt Rate - Afr Amer 102 mL/min (>60); Estimated Creatinine Clearance 77.87 ml/min; Glucose 108 mg/dL (74-106); Potassium 3.9 mmol/L (3.5-5.1); Sodium Level 142 mmol/L (136-145)
[2020-09-24] MEDS: OLANZapine 5 MG/TAB TAB.RAPDIS PO ×3 (06:36→21:32)
[2020-09-24] MEDS: Menthol/Lanolin/Calamine/Znox 113 GM Tube 1 APPLIC TOPICAL ×2 (07:56→21:32)
[2020-09-24] MEDS: Folic Acid 1 MG Tablet PO (07:56)
[2020-09-24] MEDS: Multivitamins,Ther W-Minerals Tablet 1 TABLET PO (07:56)
[2020-09-24] MEDS: Lithium Carbonate 150 MG Capsule PO (07:56)
[2020-09-24] MEDS: Thiamine Hydrochloride 100 MG Tablet PO (07:57)
[2020-09-24] MEDS: Finasteride 5 MG Tablet PO (07:57)
[2020-09-24] MEDS: Nystatin Powder 15gm Bottle 1 APPLIC TOPICAL ×2 (07:59→21:33)
[2020-09-24] MEDS: Pantoprazole Sodium 40 MG Tablet PO ×2 (07:59→21:32)
[2020-09-24] MEDS: Ensure Clear 120 ML Liquid PO (08:02)
[2020-09-24 08:10] VITALS: BP 92/57; PULSE 93; RESP 16; TEMP 36.6; O2SAT 97
[2020-09-24 08:58] VITALS: O2SAT 96
--- NOTE | 2020-09-24 09:03 | CASEMGMT ---
Social Work Note YESSENIA received message from Sho at [facility] stating she needs PT/OT to submit for pre-cert. YESSENIA reviewed chart, no PT/OT available at this time. SW to fax PT/OT when available. YESSENIA placed a call to Sho at [facility] and updated her no PT/OT is available at this time, will fax evaluations once available. Sho states understanding. Plan: Return to [facility] pending pre-cert Sho ARAIZA, SPECIAL PROCEDURES TECHNOLOGIST
[2020-09-24] MEDS: Loperamide 2 MG Capsule PO (12:14)
[2020-09-24 12:31] VITALS: BP 111/62; PULSE 89; RESP 16; TEMP 36.7; O2SAT 97
[2020-09-24 12:55] LABS: Vancomycin, Trough Level 24.8 ug/mL (5.0-15.0)
--- NOTE | 2020-09-24 13:22 | PCM.RX.CS ---
Consult Pharmacy has been consulted to manage selected antiobiotic: Vancomycin Type of Consult: Follow-up Suspected Infection: Osteomyelitis Prior Doses of Antibiotics Received/Current Regimen: current dose is 1250mg q12h Labs: Sodium 142 mmol/L (136-145) 09/24/20 05:45 Potassium 3.9 mmol/L (3.5-5.1) 09/24/20 05:45 Chloride 113 mmol/L (98-107) H 09/24/20 05:45 Carbon Dioxide 23.0 mmol/L (21.0-32.0) 09/24/20 05:45 Anion Gap 6 (5-15) 09/24/20 05:45 BUN 8 mg/dL (7-18) 09/24/20 05:45 Creatinine 0.99 mg/dL (0.70-1.30) 09/24/20 05:45 Est GFR (MDRD) Af Amer 102 mL/min (>60) 09/24/20 05:45 Est GFR (MDRD) Non-Af 84 mL/min (>60) 09/24/20 05:45 BUN/Creatinine Ratio 8.1 RATIO (10-20) L 09/24/20 05:45 Glucose 108 mg/dL (74-106) H 09/24/20 05:45 Vancomycin Trough 24.8 ug/mL (5.0-15.0) H 09/24/20 12:00 Microbiology: Microbiology 09/23/20 15:30 Stool C. difficile DNA Amplification - Final 09/22/20 22:40 Stool Stool Occult Blood (EKM) - Final Occult Blood Positive 09/22/20 20:46 Nasal Secretion SARS-CoV-2 Antigen (Rapid) - Final Weight used for dosin.6 kg Estimated Creatinine Clearance: 78 ml/min Goal Trough: 15-20 mcg/mL Pharmacy Plan for Drug Dosing: The vancomycin trough drawn at 12:00 today was 24.8. This value may be slightly higher since the previous dose was given a couple hours late but most likely it still would have been above 20. Therefore, since the trough is above goal of 15-20, further dosing will be held until tomorrow morning when a random vanc level will be checked. If it is back below 20, dosing can be resumed at a newly calculated dose. Pharmacy Service will continue to monitor and adjust dosing as required. Follow-Up Labs: Trough Vancomycin - random Labs to be done on [date and time ordered]: 09/25/20 0600
--- NOTE | 2020-09-24 13:46 | CASEMGMT ---
Social Work SW met with pt and introduced self and role of SW. SW offered to assist pt in completing HCPOA. PT denied at this time stating he is very anxious and not feeling well at all. SW informed him that SW can assist when he is feeling better. Pt openly talking about anxiety and frustration with illness and hospitalization. SW offered support. SW inquired about suicidal intentions and pt denies any thoughts of suicide at this time. Nursing aware of pt anxiety. TWYLA Vora
[2020-09-24 14:48] VITALS: BP 98/72; PULSE 91; RESP 16; TEMP 37.3; O2SAT 98
[2020-09-24] MEDS: Tamsulosin HCl 0.4 MG Capsule PO (16:40)
--- NOTE | 2020-09-24 16:46 | PN.ID_ITS ---
Patient Problems: Active and Suspected Problems (Last Reviewed 09/23/20 @ 09:[address] Baljit Spencer MD) GI bleed (Acute) Anemia (Acute) Abdominal pain (Acute) Subjective: Feeling better, still some upset stomach. No fever. - Physical Exam Vitals/I&O's: Vital Signs Temp Pulse Resp BP Pulse Ox 99.2 F H 91 16 98/72 98 09/24/20 14:48 09/24/20 14:48 09/24/20 14:48 09/24/20 14:48 09/24/20 14:48 Oxygen Delivery Method Room Air Weight: 65.6 kg Body Mass Index (BMI) 23.0 Finger Stick Blood Glucose 118 Intake and Output for Last 24 Hours 09/22/20 09/23/20 09/24/20 23:59 23:59 23:59 Intake Total 1000 / 1000 3980.0 / 3980.0 3135.33 / 3135.33 Balance 1000 / 1000 3980.0 / 3980.0 3135.33 / 3135.33 General: Alert, Cooperative, No apparent distress Lungs: Clear to auscultation, Normal air movement Cardiovascular: Regular rate, Regular Rhythm Abdomen: Soft, Non Tender, Non-Distended Skin: No rashes Microbiology Past 72 Hours 09/23/20 15:30 Stool C. difficile DNA Amplification - Final 09/22/20 22:40 Stool Stool Occult Blood (KEM) - Final Occult Blood Positive 09/22/20 20:46 Nasal Secretion SARS-CoV-2 Antigen (Rapid) - Final Laboratory Results 09/24/20 05:45: WBC 13.0 H, RBC 3.31 L, Hgb 9.1 L, Hct 29.2 L, MCV 88.2, MCH 27.5, MCHC 31.2 L, RDW Std Deviation 50.0 H, RDW Coeff of Re 15.1 H, Plt Count 315, MPV 8.3, Immature Gran % (Auto) 0.400, Neut % (Auto) 48.1, Lymph % (Auto) 38.5, [place] % (Auto) 9.2, Eos % (Auto) 3.4, Baso % (Auto) 0.4, Absolute Neuts (auto) 6.3, Absolute Lymphs (auto) 5.00 H, Nucleated RBC % 0 09/24/20 05:45: Sodium 142, Potassium 3.9, Chloride 113 H, Carbon Dioxide 23.0, Anion Gap 6, BUN 8, Creatinine 0.99, Estim Creat Clear Calc 77.87, Est GFR (MDRD) Af Amer 102, Est GFR (MDRD) Non-Af 84, BUN/Creatinine Ratio 8.1 L, Gluco se 108 H, Calcium 7.6 L 09/24/20 12:00: Vancomycin Trough 24.8 H Current Medications Acetaminophen (Acetaminophen 325 Mg Tablet) 650 mg PO Q6H PRN PRN PRN Reason: Pain Score 1-10/Temp > 100.7 F Calamine/Phenol (Menthol/Lanolin/Calamine/Znox 113 Gm Tube) 1 applic TOPICAL BID [facility]; Protocol Last Admin: 09/24/20 07:56 Dose: 1 dose Documented by: Finasteride (Finasteride 5 Mg Tablet) 5 mg PO DAILY [facility] Last Admin: 09/24/20 07:57 Dose: 5 mg Documented by: Folic Acid (Folic Acid 1 Mg Tablet) 1 mg PO DAILYCM [facility] Last Admin: 09/24/20 07:56 Dose: 1 mg Documented by: Heparin Sodium (Beef Lung) (Heparin Pf Lock 10 Units/Ml 50 Units/5 Ml Syringe) 50 units IV UD PRN PRN Reason: PICC Line Heparin Flush Hydromorphone HCl (Hydromorphone 1 Mg/Ml Syringe) 0.5 - 1 mg IV Q4H PRN PRN PRN Reason: Pain Score 1-10 Last Admin: 09/24/20 16:39 Dose: 1 mg Documented by: Sodium Chloride () 1,000 mls @ 100 mls/hr IV .Q10H [facility] Last Admin: 09/24/20 12:03 Dose: 100 mls/hr Documented by: Vancomycin IV Pharmacy to Dose (1 each/ Sodium Chloride) 500 mls @ 250 mls/hr IV PRN PRN; Protocol PRN Reason: Rx to Dose Sodium Chloride () 500 mls @ 15 mls/hr IV PRN PRN PRN Reason: Blood Transfusion Sodium Chloride () 250 mls @ 15 mls/hr IV .[id number] PRN PRN Reason: Saline Flush Sodium Chloride () 250 mls @ 15 mls/hr IV .[id number] PRN PRN Reason: Additional IVPB Infusion Meropenem 1 gm/ Sodium (Chloride) 120 mls @ 33 mls/hr IV Q8 [facility] Lactobacillus Acidophilus (Lactobacillus Acidophilus) 2 tablet PO TID [facility] Last Admin: 09/24/20 13:58 Dose: 2 tablet Documented by: Levothyroxine Sodium (Levothyroxine 150 Mcg Tablet) 150 mcg PO DAILY@0600 [facility] Last Admin: 09/24/20 05:43 Dose: 150 mcg Documented by: [place] Carbonate ([place] Carbonate 300mg Capsule) 300 mg PO QHS [facility] Last Admin: 09/23/20 22:12 Dose: 300 mg Documented by: [place] Carbonate ([place] Carbonate 150 Mg Capsule) 150 mg PO QAM [facility] Last Admin: 09/24/20 07:56 Dose: 150 mg Documented by: Loperamide HCl (Loperamide 2 Mg Capsule) 2 mg PO Q4H PRN PRN PRN Reason: Diarrhea Last Admin: 09/24/20 12:14 Dose: 2 mg Documented by: Methadone HCl (Methadone 5 Mg Tablet) 5 mg PO TID [facility] Last Admin: 09/24/20 13:58 Dose: 5 mg Documented by: Montelukast Sodium (Montelukast 10 Mg Tablet) 10 mg PO QHS [facility] Last Admin: 09/23/20 22:10 Dose: 10 mg Documented by: Multivitamins/Minerals ([facility]ivit[facility],Ther [facility]) [facility] Admin: 09/24/20 07:56 Dose: 1 tablet Documented by: Nicotine (Nicotine 21 Mg Patch) 21 mg TD QHS [facility] Last Admin: 09/23/20 22:12 Dose: 21 mg Documented by: Nutritional Formula (Lactose Free) (Ensure Clear 120 Ml Liquid) 120 ml PO 4X/DAY [facility] Last Admin: 09/24/20 15:50 Dose: Not Given Documented by: Nystatin (Nystatin Powder 15gm Bottle) 1 applic TOPICAL BID [facility]; Protocol Last Admin: 09/24/20 07:59 Dose: 1 applic Documented by: Olanzapine (Olanzapine 5 Mg/Tab Tab.Rapdis) 5 mg PO TID [facility] Last Admin: 09/24/20 13:58 Dose: 5 mg Documented by: Ondansetron HCl (Ondansetron 4 Mg/2 Ml Vial) 4 mg IV Q8H PRN PRN PRN Reason: NAUSEA/VOMITING Pantoprazole Sodium (Pantoprazole Sodium 40 Mg Tablet) 40 mg PO BID [facility] Last Admin: 09/24/20 07:59 Dose: 40 mg Documented by: Sodium Chloride (0.9% Saline Lock 10 Ml Syringe) 10 - 40 ml IV UD PRN PRN Reason: Open End PICC Flush Last Admin: 09/24/20 05:47 Dose: 10 ml Documented by: Sodium Chloride (0.9 % Nacl (Sterile) Posiflush 10 Ml) 10 - 40 ml IV UD PRN PRN Reason: Port access or dressing change Tamsulosin HCl (Tamsulosin Hcl 0.4 Mg Capsule) 0.4 mg PO DAILY@1730 [facility] Last Admin: 09/24/20 16:40 Dose: 0.4 mg Documented by: Thiamine HCl (Thiamine Hydrochloride 100 Mg Tablet) 100 mg PO DAILY [facility] Last Admin: 09/24/20 07:57 Dose: 100 mg Documented by: Medical Necessity - Tobacco Use Smoking Status: Current every day smoker Route of nutrition/ use of supplements: [] Nutritional Intake: [] IV Site: [] Domínguez Catheter: [] - Assessment/Plan Antibiotics: [] Assessment/Plan: [] Active and Suspected Problems (Last Reviewed 09/23/20 @ 09:[address] Baljit Spencer MD) GI bleed (Acute) Anemia (Acute) Abdominal pain (Acute) sacral osteo - on vanc/zosyn. EGD and CT abd/pelvis done. Will request cxs and ID note from recent stay. Cdiff neg. Was on vanc/carole at [facility] until 10/25/20, will change zosyn to carole. Will follow
--- NOTE | 2020-09-24 18:01 | PCM.PROGNOTE ---
Patient Problems: Active and Suspected Problems (Last Reviewed 09/23/20 @ 09:[address] Baljit Spencer MD) GI bleed (Acute) Anemia (Acute) Abdominal pain (Acute) Subjective: Patient was seen and examined today, he complained of continued incontinence, late this afternoon and a Domínguez was placed with return of approximately 700 cc of urine, it appears that the patient has urinary retention and for now I will keep the catheter in. Patient was placed on Flomax yesterday and is already on Proscar. Patient's hemoglobin is essentially unchanged from yesterday, we are awaiting approval for the patient return back to the [facility] where he is located. - Physical Exam Vitals/I&O's: Vital Signs Temp Pulse Resp BP Pulse Ox 99.2 F H 91 16 98/72 98 09/24/20 14:48 09/24/20 14:48 09/24/20 14:48 09/24/20 14:48 09/24/20 14:48 Oxygen Delivery Method Room Air Weight: 65.6 kg Body Mass Index (BMI) 23.0 Finger Stick Blood Glucose 118 Intake and Output for Last 24 Hours 09/22/20 09/23/20 09/24/20 23:59 23:59 23:59 Intake Total 1000 / 1000 3980.0 / 3980.0 3656.33 / 3656.33 Output Total 750 / 750 Balance 1000 / 1000 3980.0 / 3980.0 2906.33 / 2906.33 General: Alert, Oriented x3, Cooperative, No apparent distress, Well developed, Well nourished HEENT: Atraumatic, PERRLA, EOMI, Normocephalic Oral: Moist Mucosa Neck: Supple, No JVD, Trachea Midline, Thyroid Normal Size and Texture Lungs: Clear to auscultation, Normal air movement, No rhonchi, No wheeze, No rales Cardiovascular: Regular rate, Regular Rhythm, Normal S1, Normal S2, No murmurs, PMI Normal, No rub noted, No Gallop Abdomen: Bowel Sounds Present, Soft, Non Tender, Non-Distended, No hernias noted Extremities: No clubbing, No cyanosis, No edema, Capillary Refill Less than 3 Seconds Skin: No rashes, No breakdown Musculoskeletal: No Tenderness to Palpation of Joints or Extremities Neurological: Cranial nerves II-XII grossly intact, Neuro grossly intact, Sensory exam intact to light touch and pain Psych/Mental Status: Normal Affect, Appropriate, Alert and oriented to time, place, person, mood and affect Microbiology Past 72 Hours 09/23/20 15:30 Stool C. difficile DNA Amplification - Final 09/22/20 22:40 Stool Stool Occult Blood (KEM) - Final Occult Blood Positive 09/22/20 20:46 Nasal Secretion SARS-CoV-2 Antigen (Rapid) - Final Laboratory Results 09/24/20 05:45: WBC 13.0 H, RBC 3.31 L, Hgb 9.1 L, Hct 29.2 L, MCV 88.2, MCH 27.5, MCHC 31.2 L, RDW Std Deviation 50.0 H, RDW Coeff of Re 15.1 H, Plt Count 315, MPV 8.3, Immature Gran % (Auto) 0.400, Neut % (Auto) 48.1, Lymph % (Auto) 38.5, [place] % (Auto) 9.2, Eos % (Auto) 3.4, Baso % (Auto) 0.4, Absolute Neuts (auto) 6.3, Absolute Lymphs (auto) 5.00 H, Nucleated RBC % 0 09/24/20 05:45: Sodium 142, Potassium 3.9, Chloride 113 H, Carbon Dioxide 23.0, Anion Gap 6, BUN 8, Creatinine 0.99, Estim Creat Clear Calc 77.87, Est GFR (MDRD) Af Amer 102, Est GFR (MDRD) Non-Af 84, BUN/Creatinine Ratio 8.1 L, Glucose 108 H, Calcium 7.6 L 09/24/20 12:00: Vancomycin Trough 24.8 H Current Medications Acetaminophen (Acetaminophen 325 Mg Tablet) 650 mg PO Q6H PRN PRN PRN Reason: Pain Score 1-10/Temp > 100.7 F Calamine/Phenol (Menthol/Lanolin/Calamine/Znox 113 Gm Tube) 1 applic TOPICAL BID [facility]; Protocol Last Admin: 09/24/20 07:56 Dose: 1 dose Documented by: Finasteride (Finasteride 5 Mg Tablet) 5 mg PO DAILY [facility] Last Admin: 09/24/20 07:57 Dose: 5 mg Documented by: Folic Acid ([facility] 1 Mg Tablet) [facility] Last Admin: 09/24/20 07:56 Dose: 1 mg Documented by: Heparin Sodium (Beef Lung) (Heparin Pf Lock 10 Units/Ml 50 Units/5 Ml Syringe) 50 units IV UD PRN PRN Reason: PICC Line Heparin Flush Hydromorphone HCl (Hydromorphone 1 Mg/Ml Syringe) 0.5 - 1 mg IV Q4H PRN PRN PRN Reason: Pain Score 1-10 Last Admin: 09/24/20 16:39 Dose: 1 mg Documented by: Sodium Chloride () 1,000 mls @ 15 mls/hr IV .Q48H [facility] Last Infusion: 09/24/20 17:19 Dose: 0 mls/hr Documented by: Vancomycin IV Pharmacy to Dose (1 each/ Sodium Chloride) 500 mls @ 250 mls/hr IV PRN PRN; Protocol PRN Reason: Rx to Dose Sodium Chloride () 500 mls @ 15 mls/hr IV PRN PRN PRN Reason: Blood Transfusion Sodium Chloride () 250 mls @ 15 mls/hr IV .[id number] PRN PRN Reason: Saline Flush Sodium Chloride () 250 mls @ 15 mls/hr IV .[id number] PRN PRN Reason: Additional IVPB Infusion Meropenem 1 gm/ Sodium (Chloride) 120 mls @ 33 mls/hr IV Q8 [facility] Lactobacillus Acidophilus (Lactobacillus Acidophilus) 2 tablet PO TID [facility] Last Admin: 09/24/20 13:58 Dose: 2 tablet Documented by: Levothyroxine Sodium (Levothyroxine 150 Mcg Tablet) 150 mcg PO DAILY@0600 [facility] Last Admin: 09/24/20 05:43 Dose: 150 mcg Documented by: [place] Carbonate ([place] Carbonate 300mg Capsule) 300 mg PO QHS [facility] Last Admin: 09/23/20 22:12 Dose: 300 mg Documented by: [place] Carbonate ([place] Carbonate 150 Mg Capsule) 150 mg PO QAM [facility] Last Admin: 09/24/20 07:56 Dose: 150 mg Documented by: Loperamide HCl (Loperamide 2 Mg Capsule) 2 mg PO Q4H PRN PRN PRN Reason: Diarrhea Last Admin: 09/24/20 12:14 Dose: 2 mg Documented by: Methadone HCl (Methadone 5 Mg Tablet) 5 mg PO TID [facility] Last Admin: 09/24/20 13:58 Dose: 5 mg Documented by: Montelukast Sodium (Montelukast 10 Mg Tablet) 10 mg PO QHS [facility] Last Admin: 09/23/20 22:10 Dose: 10 mg Documented by: Multivitamins/Minerals (Multivitamins,Ther W-Minerals Tablet) 1 tablet PO DAILYCM [facility] Last Admin: 09/24/20 07:56 Dose: 1 tablet Documented by: Nicotine (Nicotine 21 Mg Patch) 21 mg TD QHS [facility] Last Admin: 09/23/20 22:12 Dose: 21 mg Documented by: Nutritional Formula (Lactose Free) (Ensure Clear 120 Ml Liquid) 120 ml PO 4X/DAY [facility] Last Admin: 09/24/20 15:50 Dose: Not Given Documented by: Nystatin (Nystatin Powder 15gm Bottle) 1 applic TOPICAL BID [facility]; Protocol Last Admin: 09/24/20 07:59 Dose: 1 applic Documented by: Olanzapine (Olanzapine 5 Mg/Tab Tab.Rapdis) 5 mg PO TID [facility] Last Admin: 09/24/20 13:58 Dose: 5 mg Documented by: Ondansetron HCl (Ondansetron 4 Mg/2 Ml Vial) 4 mg IV Q8H PRN PRN PRN Reason: NAUSEA/VOMITING Pantoprazole Sodium (Pantoprazole Sodium 40 Mg Tablet) 40 mg PO BID [facility] Last Admin: 09/24/20 07:59 Dose: 40 mg Documented by: Sodium Chloride (0.9% Saline Lock 10 Ml Syringe) 10 - 40 ml IV UD PRN PRN Reason: Open End PICC Flush Last Admin: 09/24/20 05:47 Dose: 10 ml Documented by: Sodium Chloride (0.9 % Nacl (Sterile) Posiflush 10 Ml) 10 - 40 ml IV UD PRN PRN Reason: Port access or dressing change Tamsulosin HCl (Tamsulosin Hcl 0.4 Mg Capsule) 0.4 mg PO DAILY@1730 [facility] Last Admin: 09/24/20 16:40 Dose: 0.4 mg Documented by: Thiamine HCl (Thiamine Hydrochloride 100 Mg Tablet) 100 mg PO DAILY [facility] Last Admin: 09/24/20 07:57 Dose: 100 mg Documented by: Medical Necessity - Tobacco Use Smoking Status: Current every day smoker Assessment/Plan All Active Problems (Last Reviewed 09/23/20 @ 09:[address] Baljit Spencer MD) GI bleed (Acute) Anemia (Acute) Abdominal pain (Acute) History of non-ST elevation myocardial infarction (NSTEMI) (Resolved 06/26/20) Non-Hodgkin lymphoma in remission (Resolved) Takotsubo cardiomyopathy (Resolved 06/2019) #1 acute upper GI bleed secondary to gastritis-patient's hemoglobin is stable at this time #2 chronic osteomyelitis of the sacrum-patient is currently receiving antibiotics, infectious diseases is seeing patient #3 urinary incontinence secondary to presumed BPH with overflow incontinence-again patient had a Domínguez placed today, this will need removed when [facility] after [facility] days #4 chronic obstructive pulmonary disease #5 essential hypertension #6 acute blood loss anemia secondary to acute upper GI bleed-requiring blood transfusion, patient's hemoglobin appears to be stable at this time Inpatient E&M: 74261 Subs Hosp L2
[2020-09-24] MEDS: Acetaminophen 325 MG Tablet 650 MG PO (20:17)
[2020-09-24 20:43] VITALS: BP 123/73; PULSE 105; RESP 18; TEMP 37.3; O2SAT 97
[2020-09-24] MEDS: Montelukast 10 MG Tablet PO (21:31)
[2020-09-24] MEDS: Lithium Carbonate 300mg Capsule 300 MG PO (21:31)
[2020-09-25 03:10] VITALS: BP 129/75; PULSE 88; RESP 18; TEMP 36.9; O2SAT 98
[2020-09-25] MEDS: Acetaminophen 325 MG Tablet 650 MG PO ×2 (03:14→14:06)
[2020-09-25] MEDS: 0.9% Normal Saline 1,000 ML 15 ML IV (03:15)
[2020-09-25] MEDS: OLANZapine 5 MG/TAB TAB.RAPDIS PO ×3 (05:15→21:28)
[2020-09-25] MEDS: Levothyroxine 150 MCG Tablet PO (05:15)
[2020-09-25 07:07] LABS: Absolute Lymphocyte Count 1.99 X10^3/uL (0.83-4.51); Absolute Neutrophil Count 5.8 X10^3/uL (2.0-7.7); Basophil# 0.04 X10^3/uL; Basophil% 0.4 % (0-1); Eosinophil# 0.54 X10^3/uL; Eosinophils% 5.8 % (0-5); Hematocrit 30.6 % (40-54); Lymphocyte # 1.99 X10^3/ul (0.83-4.51); Lymphocyte % 21.4 % (19-41); Mean Corp Hgb Conc 29.4 g/dL (32-36); Mean Corpuscular Hgb 26.1 pg (27.0-32.0); Mean Corpuscular Volume 88.7 fL (80-94); Mean Platelet Vol. 8.8 fl (6.2-12.0); Monocyte# 0.89 X10^3/uL; Monocyte% 9.6 % (0-10); NRBC Flagged by Analyzer 0 % (0-5); Neutrophil # 5.79 X10^3/uL (2.7-7.7); Neutrophil % 62.5 % (47-70); Platelet Count 351 K/mm3 (150-450); RBC Distribution Width SD 49.4 fl (35.1-43.9); Red Blood Count 3.45 M/mm3 (4.6-6.2); White Blood Count 9.3 K/mm3 (4.4-11.0)
[2020-09-25 07:27] LABS: Vancomycin, Random Level 19.4 ug/mL (0.0-15.0)
[2020-09-25 07:33] VITALS: O2SAT 94
[2020-09-25 07:36] LABS: PSA,Total - Annual Screen 0.75 ng/mL (0.00-4.00)
[2020-09-25] MEDS: 0.9% Saline Lock 10 ML Syringe IV ×2 (07:44→16:29)
[2020-09-25] MEDS: HYDROmorphone 1 MG/ML Syringe IV ×4 (07:44→20:33)
[2020-09-25 09:55] VITALS: BP 120/70; PULSE 100; RESP 18; TEMP 37; O2SAT 100
[2020-09-25] MEDS: Thiamine Hydrochloride 100 MG Tablet PO (09:59)
[2020-09-25] MEDS: Folic Acid 1 MG Tablet PO (09:59)
[2020-09-25] MEDS: Finasteride 5 MG Tablet PO (09:59)
[2020-09-25] MEDS: Pantoprazole Sodium 40 MG Tablet PO ×2 (10:00→21:27)
[2020-09-25] MEDS: Nystatin Powder 15gm Bottle 1 APPLIC TOPICAL ×2 (10:00→21:28)
[2020-09-25] MEDS: Lithium Carbonate 150 MG Capsule PO (10:00)
[2020-09-25] MEDS: Multivitamins,Ther W-Minerals Tablet 1 TABLET PO (10:00)
[2020-09-25] MEDS: Menthol/Lanolin/Calamine/Znox 113 GM Tube 1 APPLIC TOPICAL ×2 (10:00→21:27)
--- NOTE | 2020-09-25 10:59 | CASEMGMT ---
Social Work Note SW faxed updated clinicals to [facility]. YESSENIA spoke with Sho at [facility], pre-cert is still pending. Plan: [facility] pending pre-cert Sho Angelo MSW, ELECTRONICS WORKER
--- NOTE | 2020-09-25 12:10 | NURSING ---
0900 pt states he does NOT want Alexi Hill to be a visitor or come see him. pt aware of visitor policy/restrictions, pt argumentative/using profanity with nurse and then apologizes and states he understands. Alexi Hill removed from visitors list
--- NOTE | 2020-09-25 13:52 | PCM.RX.CS ---
Consult Pharmacy has been consulted to manage selected antiobiotic: Vancomycin Type of Consult: Follow-up Suspected Infection: Osteomyelitis Labs: Sodium 142 mmol/L (136-145) 09/24/20 05:45 Potassium 3.9 mmol/L (3.5-5.1) 09/24/20 05:45 Chloride 113 mmol/L (98-107) H 09/24/20 05:45 Carbon Dioxide 23.0 mmol/L (21.0-32.0) 09/24/20 05:45 Anion Gap 6 (5-15) 09/24/20 05:45 BUN 8 mg/dL (7-18) 09/24/20 05:45 Creatinine 0.99 mg/dL (0.70-1.30) 09/24/20 05:45 Est GFR (MDRD) Af Amer 102 mL/min (>60) 09/24/20 05:45 Est GFR (MDRD) Non-Af 84 mL/min (>60) 09/24/20 05:45 BUN/Creatinine Ratio 8.1 RATIO (10-20) L 09/24/20 05:45 Glucose 108 mg/dL (74-106) H 09/24/20 05:45 Vancomycin Trough 24.8 ug/mL (5.0-15.0) H 09/24/20 12:00 Random Vancomycin 19.4 ug/mL (0.0-15.0) H 09/25/20 06:10 Microbiology: Microbiology 09/22/20 20:37 Blood Culture (Wb) - Pic Blood Culture - Preliminary No growth in 48 hours. 09/22/20 22:55 Blood Culture (Wb) - Pic Blood Culture - Preliminary No growth in 48 hours. 09/23/20 15:30 Stool C. difficile DNA Amplification - Final 09/22/20 22:40 Stool Stool Occult Blood (KEM) - Final Occult Blood Positive 09/22/20 20:46 Nasal Secretion SARS-CoV-2 Antigen (Rapid) - Final Goal Trough: 15-20 mcg/mL Pharmacy Plan for Drug Dosing: restart vancomycin at 1000mg every 12 hours. draw vancomycin level 09/27/20 @0330. [facility] will continue to monitor and adjust dosing as required. trough resulted after being held for 24 hours 19.8 Goal is 15-20 Labs to be done on [date and time ordered]: 09/27/2020 @0330 VANCOMYCIN TROUGH
[2020-09-25 15:30] VITALS: BP 121/74; PULSE 116; RESP 18; TEMP 37.7; O2SAT 96
--- NOTE | 2020-09-25 16:02 | CASEMGMT ---
Social Work Note SW placed a call to Sho at [facility], pre-cert is still pending. Plan: [facility] pending pre-cert Sho Angelo MANAGER PROGRAM MANAGEMENT, SOLID WASTE FACILITY OPERATOR
--- NOTE | 2020-09-25 16:30 | NURSING ---
nurse to room, pt raising voice and yelling at nurse, using profanity. again starts talking about visiting policy and much reinforcement given. said nurse actually spoke to lady named pauline who is a friend and reinforced/explained visiting hour policy/restricts due to COVID as pt states she is downstairs crying very upset said nurse spoke with Pauline and explained policy/restrictions, her voice calm to said nurse on phone, states she understands and is agreeable.
--- NOTE | 2020-09-25 16:33 | NURSING ---
boundary setting maintained.
--- NOTE | 2020-09-25 16:40 | CASEMGMT ---
Social Work Note SW placed another call to Sho at [facility], pre-cert is still pending. Sho states she doesn't anticipate getting pre-cert tonight. SW to follow up with [facility] tomorrow. Plan: [facility] pending pre-cert Sho Angelo COMMUNITY RECREATION COORDINATOR, MEMBERSHIP COORDINATOR
--- NOTE | 2020-09-25 16:50 | CHAPLAIN ---
Type of Pastoral Visit ___ Initial Visit _x__ Follow-up Visit ___ On-call Visit ___ General Patient Visit ___ Spiritual Assessment ___ Family Conference ___ Bereavement ___ Rapid Response ___ Code Blue ___ Other (describe below) Pastoral Care Referral From _x__ Patient ___ Family ___ Nurse ___ Physician ___ Polisher And Buffer ___ Mushroom Spawn Maker ___ Other (describe below) Sacrament/Intervention _x__ Active listening ___ Anointing ___ Yarsanism ___ Bereavement ___ Communion _x__ Eulalia exploration ___ _x__ Life review _x__ Prayer ___ Reconciliation ___ Sacrament of Sick _x__ Supportive presence ___ Wedding ___ Other (describe below) Pastoral Comments
[2020-09-25] MEDS: Tamsulosin HCl 0.4 MG Capsule PO (18:38)
--- NOTE | 2020-09-25 19:18 | PN_ITS ---
Patient Problems: Active and Suspected Problems (Last Reviewed 09/23/20 @ 09:[address] Baljit Spencer MD) GI bleed (Acute) Anemia (Acute) Abdominal pain (Acute) Subjective: Patient was seen and examined today, he has no complaints of any abdominal discomfort today, we are still awaiting approval for placement at the nursing home facility where he was residing prior to admission here. Objective: General: Alert, Oriented x3, Cooperative, No apparent distress, Well developed, Well nourished HEENT: Atraumatic, PERRLA, EOMI, Normocephalic Oral: Moist Mucosa Neck: Supple, No JVD, Trachea Midline, Thyroid Normal Size and Texture Lungs: Clear to auscultation, Normal air movement, No rhonchi, No wheeze, No rales Cardiovascular: Regular rate, Regular Rhythm, Normal S1, Normal S2, No murmurs, PMI Normal, No rub noted, No Gallop Abdomen: Bowel Sounds Present, Soft, Non Tender, Non-Distended, No hernias noted Extremities: No clubbing, No cyanosis, No edema, Capillary Refill Less than 3 Seconds Skin: No rashes, No breakdown Musculoskeletal: No Tenderness to Palpation of Joints or Extremities Neurological: Cranial nerves II-XII grossly intact, Neuro grossly intact, Sensory exam intact to light touch and pain Psych/Mental Status: Normal Affect, Appropriate, Alert and oriented to time, place, person, mood and affect - Physical Exam Vitals/I&O's: Vital Signs Temp Pulse Resp BP Pulse Ox 99.9 F H 116 H 18 121/74 H 96 09/25/20 15:30 09/25/20 15:30 09/25/20 15:30 09/25/20 15:30 09/25/20 15:30 Oxygen Delivery Method Room Air Weight: 65.6 kg Body Mass Index (BMI) 23.0 Finger Stick Blood Glucose 118 Intake and Output for Last 24 Hours 09/23/20 09/24/20 09/25/20 23:59 23:59 23:59 Intake Total 3980.0 / 3980.0 4056.33 / 4056.33 4489.25 / 4489.25 Output Total 2450 / 2450 3350 / 3350 Balance 3980.0 / 3980.0 1606.33 / 1606.33 1139.25 / 1139.25 Microbiology Past 72 Hours 09/22/20 20:37 Blood Culture (Wb) - Pic Blood Culture - Preliminary No growth in 48 hours. 09/22/20 22:55 Blood Culture (Wb) - Pic Blood Culture - Preliminary No growth in 48 hours. 09/23/20 15:30 Stool C. difficile DNA Amplification - Final 09/22/20 22:40 Stool Stool Occult Blood (KEM) - Final Occult Blood Positive 09/22/20 20:46 Nasal Secretion SARS-CoV-2 Antigen (Rapid) - Final Laboratory Results 09/25/20 06:10: Random Vancomycin 19.4 H 09/25/20 06:10: WBC 9.3, RBC 3.45 L, Hgb 9.0 L, Hct 30.6 L, MCV 88.7, MCH 26.1 L , MCHC 29.4 L D, RDW Std Deviation 49.4 H, RDW Coeff of Re 15.0 H, Plt Count 351, MPV 8.8, Immature Gran % (Auto) 0.300, Neut % (Auto) 62.5, Lymph % (Auto) 21.4, [place] % (Auto) 9.6, Eos % (Auto) 5.8 H, Baso % (Auto) 0.4, Absolute Neuts (auto) 5.8, Absolute Lymphs (auto) 1.99, Nucleated RBC % 0 09/25/20 06:10: PSA Screen 0.75 Current Medications Acetaminophen (Acetaminophen 325 Mg Tablet) 650 mg PO Q6H PRN PRN PRN Reason: Pain Score 1-10/Temp > 100.7 F Last Admin: 09/25/20 14:06 Dose: 650 mg Documented by: Calamine/Phenol (Menthol/Lanolin/Calamine/Znox 113 Gm Tube) 1 applic TOPICAL BID [facility]; Protocol Last Admin: 09/25/20 10:00 Dose: 1 dose Documented by: Finasteride (Finasteride 5 Mg Tablet) 5 mg PO DAILY [facility] Last Admin: 09/25/20 09:59 Dose: 5 mg Documented by: [facility] Acid ([facility] Last Admin: 09/25/20 09:59 Dose: 1 mg Documented by: Heparin Sodium (Beef Lung) (Heparin Pf Lock 10 Units/Ml 50 Units/5 Ml Syringe) 50 units IV UD PRN PRN Reason: PICC Line Heparin Flush Hydromorphone HCl (Hydromorphone 1 Mg/Ml Syringe) 0.5 - 1 mg IV Q4H PRN PRN PRN Reason: Pain Score 1-10 Last Admin: 09/25/20 16:29 Dose: 1 mg Documented by: Sodium Chloride () 1,000 mls @ 15 mls/hr IV .Q48H [facility] Last Admin: 09/25/20 03:15 Dose: 15 mls/hr Documented by: Vancomycin IV Pharmacy to Dose (1 each/ Sodium Chloride) 500 mls @ 250 mls/hr IV PRN PRN; Protocol PRN Reason: Rx to Dose Sodium Chloride () 500 mls @ 15 mls/hr IV PRN PRN PRN Reason: Blood Transfusion Sodium Chloride () 250 mls @ 15 mls/hr IV .[id number] PRN PRN Reason: Saline Flush Sodium Chloride () 250 mls @ 15 mls/hr IV .[id number] PRN PRN Reason: Additional IVPB Infusion Meropenem 1 gm/ Sodium (Chloride) 120 mls @ 33 mls/hr IV Q8 [facility] Last Infusion: 09/25/20 18:42 Dose: Infused Documented by: Vancomycin HCl (Vancomycin) 1,000 mg in 200 mls @ 200 mls/hr IV Q12H [facility] Lactobacillus Acidophilus (Lactobacillus Acidophilus) 2 tablet PO TID [facility] Last Admin: 09/25/20 13:57 Dose: 2 tablet Documented by: Levothyroxine Sodium (Levothyroxine 150 Mcg Tablet) 150 mcg PO DAILY@0600 [facility] Last Admin: 09/25/20 05:15 Dose: 150 mcg Documented by: [place] Carbonate ([place] Carbonate 300mg Capsule) 300 mg PO QHS [facility] Last Admin: 09/24/20 21:31 Dose: 300 mg Documented by: [place] Carbonate ([place] Carbonate 150 Mg Capsule) 150 mg PO QAM [facility] Last Admin: 09/25/20 10:00 Dose: 150 mg Documented by: Loperamide HCl (Loperamide 2 Mg Capsule) 2 mg PO Q4H PRN PRN PRN Reason: Diarrhea Last Admin: 09/24/20 12:14 Dose: 2 mg Documented by: Methadone HCl (Methadone 5 Mg Tablet) 5 mg PO TID [facility] Last Admin: 09/25/20 13:57 Dose: 5 mg Documented by: Montelukast Sodium (Montelukast 10 Mg Tablet) 10 mg PO QHS [facility] Last Admin: 09/24/20 21:31 Dose: 10 mg Documented by: Multivitamins/Minerals (Multivitamins,Ther W-Minerals Tablet) [facility] Last Admin: 09/25/20 10:00 Dose: 1 tablet Documented by: Nicotine (Nicotine 21 Mg Patch) 21 mg TD QHS [facility] Last Admin: 09/25/20 10:01 Dose: 21 mg Documented by: Nystatin (Nystatin Powder 15gm Bottle) 1 applic TOPICAL BID [facility]; Protocol Last Admin: 09/25/20 10:00 Dose: 1 applic Documented by: Olanzapine (Olanzapine 5 Mg/Tab Tab.Rapdis) 5 mg PO TID [facility] Last Admin: 09/25/20 13:57 Dose: 5 mg Documented by: Ondansetron HCl (Ondansetron 4 Mg/2 Ml Vial) 4 mg IV Q8H PRN PRN PRN Reason: NAUSEA/VOMITING Pantoprazole Sodium (Pantoprazole Sodium 40 Mg Tablet) 40 mg PO BID [facility] Last Admin: 09/25/20 10:00 Dose: 40 mg Documented by: Sodium Chloride (0.9% Saline Lock 10 Ml Syringe) 10 - 40 ml IV UD PRN PRN Reason: Open End PICC Flush Last Admin: 09/25/20 16:29 Dose: 10 ml Documented by: Sodium Chloride (0.9 % Nacl (Sterile) Posiflush 10 Ml) 10 - 40 ml IV UD PRN PRN Reason: Port access or dressing change Tamsulosin HCl (Tamsulosin Hcl 0.4 Mg Capsule) 0.4 mg PO DAILY@1730 [facility] Last Admin: 09/25/20 18:38 Dose: 0.4 mg Documented by: Thiamine HCl (Thiamine Hydrochloride 100 Mg Tablet) 100 mg PO DAILY [facility] Last Admin: 09/25/20 09:59 Dose: 100 mg Documented by: Medical Necessity - Tobacco Use Smoking Status: Current every day smoker Assessment/Plan All Active Problems (Last Reviewed 09/23/20 @ 09:[address] Baljit Spencer MD) GI bleed (Acute) Anemia (Acute) Abdominal pain (Acute) History of non-ST elevation myocardial infarction (NSTEMI) (Resolved 06/26/20) Non-Hodgkin lymphoma in remission (Resolved) Takotsubo cardiomyopathy (Resolved 06/2019) #1 acute upper GI bleed secondary to gastritis-patient's hemoglobin is stable at this time, I do not think he needs labs repeated tomorrow #2 chronic osteomyelitis of the sacrum-patient is currently receiving antibiotics, infectious diseases is seeing patient #3 urinary incontinence secondary to presumed BPH with overflow incontinence-his Domínguez will be [facility]. #4 chronic obstructive pulmonary disease #5 essential hypertension #6 acute blood loss anemia secondary to acute upper GI bleed-requiring blood transfusion, patient's hemoglobin appears to be stable at this time Inpatient E&M: [id number] Subs Hosp L2
[2020-09-25] MEDS: Vancomycin IV 1,000 MG/200 ML BAG 200 MG IV (19:53)
[2020-09-25 20:28] VITALS: BP 125/83; PULSE 99; RESP 16; TEMP 36.8; O2SAT 98
[2020-09-25] MEDS: Lithium Carbonate 300mg Capsule 300 MG PO (21:28)
[2020-09-25] MEDS: Montelukast 10 MG Tablet PO (21:28)
[2020-09-26] MEDS: 0.9% Saline Lock 10 ML Syringe IV ×2 (01:04→19:59)
[2020-09-26] MEDS: HYDROmorphone 1 MG/ML Syringe IV ×5 (01:04→19:59)
[2020-09-26 02:45] VITALS: BP 120/79; PULSE 103; RESP 16; TEMP 36.9; O2SAT 94
[2020-09-26] MEDS: Acetaminophen 325 MG Tablet 650 MG PO ×2 (02:53→10:25)
[2020-09-26] MEDS: Vancomycin IV 1,000 MG/200 ML BAG 200 MG IV ×2 (05:27→18:12)
[2020-09-26] MEDS: OLANZapine 5 MG/TAB TAB.RAPDIS PO ×2 (05:28→21:40)
[2020-09-26] MEDS: Levothyroxine 150 MCG Tablet PO (05:28)
[2020-09-26 07:30] VITALS: O2SAT 93
[2020-09-26] MEDS: Multivitamins,Ther W-Minerals Tablet 1 TABLET PO (08:33)
[2020-09-26] MEDS: Folic Acid 1 MG Tablet PO (08:34)
[2020-09-26 08:45] VITALS: BP 122/82; PULSE 71; RESP 18; TEMP 36.7; O2SAT 96
--- NOTE | 2020-09-26 09:43 | CASEMGMT ---
Addendum entered by Sho Angelo 09/26/20 16:23: YESSENIA placed another call to Sho at [facility], pre-cert is still pending. YESSENIA informed Sho that this worker is leaving for the day, asked Sho to call [facility] main number in the event pre-cert is obtained later today/over the weekend. YESSENIA also asked Sho to have [facility] psychiatrist see pt when pt arrives to facility. Sho states understanding. YESSENIA placed Green sheet, transport forms, COVID test and Tool on pt's chart in the event pre-cert is obtained. Plan: [facility] pending pre-cert Original Note: Social Work Note YESSENIA placed a call to Sho at [facility] and asked if they can reach out to pt's insurance again regarding pt's pre-cert. Sho states they reached out to [facility] yesterday and will reach out again this morning. Plan: [facility] pending pre-cert Sho Petey CHINGW, RETURN TO FACTORY CLERK
[2020-09-26] MEDS: Menthol/Lanolin/Calamine/Znox 113 GM Tube 1 APPLIC TOPICAL ×2 (10:21→21:41)
[2020-09-26] MEDS: Nystatin Powder 15gm Bottle 1 APPLIC TOPICAL ×2 (10:22→21:40)
[2020-09-26] MEDS: Pantoprazole Sodium 40 MG Tablet PO ×2 (10:22→21:40)
[2020-09-26] MEDS: Lithium Carbonate 150 MG Capsule PO (10:22)
[2020-09-26] MEDS: Finasteride 5 MG Tablet PO (10:22)
[2020-09-26] MEDS: Thiamine Hydrochloride 100 MG Tablet PO (10:23)
[2020-09-26 14:00] VITALS: BP 115/61; PULSE 98; RESP 18; TEMP 36.7; O2SAT 98
[2020-09-26] MEDS: Tamsulosin HCl 0.4 MG Capsule PO (15:52)
--- NOTE | 2020-09-26 17:06 | PN_ITS ---
Patient Problems: Active and Suspected Problems (Last Reviewed 09/23/20 @ 09:[address] Baljit Spencer MD) GI bleed (Acute) Anemia (Acute) Abdominal pain (Acute) Subjective: Patient was seen and examined today, we have not yet received approval for him to go back to the [facility] care facility at which she resides, I do not expect to receive approval now until Tuesday at least. Patient has some nonspecific complaints of lower abdominal discomfort-I think is probably attributed to his Domínguez. Objective: General: Alert, Oriented x3, Cooperative, No apparent distress, Well developed, Well nourished HEENT: Atraumatic, PERRLA, EOMI, Normocephalic Oral: Moist Mucosa Neck: Supple, No JVD, Trachea Midline, Thyroid Normal Size and Texture Lungs: Clear to auscultation, Normal air movement, No rhonchi, No wheeze, No rales Cardiovascular: Regular rate, Regular Rhythm, Normal S1, Normal S2, No murmurs, PMI Normal, No rub noted, No Gallop Abdomen: Bowel Sounds Present, Soft, Non Tender, Non-Distended, No hernias noted Extremities: No clubbing, No cyanosis, No edema, Capillary Refill Less than 3 Seconds Skin: No rashes, No breakdown Musculoskeletal: No Tenderness to Palpation of Joints or Extremities Neurological: Cranial nerves II-XII grossly intact, Neuro grossly intact, Sensory exam intact to light touch and pain Psych/Mental Status: Normal Affect, Appropriate, Alert and oriented to time, place, person, mood and affect - Physical Exam Vitals/I&O's: Vital Signs Temp Pulse Resp BP Pulse Ox 98.0 F 71 18 122/82 H 96 09/26/20 08:45 09/26/20 08:45 09/26/20 08:45 09/26/20 08:45 09/26/20 08:45 Oxygen Delivery Method Room Air Weight: 65.6 kg Body Mass Index (BMI) 23.0 Finger Stick Blood Glucose 118 Intake and Output for Last 24 Hours 09/24/20 09/25/20 09/26/20 23:59 23:59 23:59 Intake Total 4056.33 / 4056.33 5446.50 / 5446.50 1354.5 / 1354.5 Output Total 2450 / 2450 4850 / 4850 1950 / 1950 Balance 1606.33 / 1606.33 596.50 / 596.50 -595.5 / -595.5 Microbiology Past 72 Hours 09/22/20 20:37 Blood Culture (Wb) - Pic Blood Culture - Preliminary No growth in 48 hours. 09/22/20 22:55 Blood Culture (Wb) - Pic Blood Culture - Preliminary No growth in 48 hours. 09/23/20 15:30 Stool C. difficile DNA Amplification - Final Current Medications Acetaminophen (Acetaminophen 325 Mg Tablet) 650 mg PO Q6H PRN PRN PRN Reason: Pain Score 1-10/Temp > 100.7 F Last Admin: 09/26/20 10:25 Dose: 650 mg Documented by: Calamine/Phenol (Menthol/Lanolin/Calamine/Znox 113 Gm Tube) 1 applic TOPICAL BID [facility]; Protocol Last Admin: 09/26/20 10:21 Dose: 1 dose Documented by: Finasteride (Finasteride 5 Mg Tablet) 5 mg PO DAILY [facility] Last Admin: 09/26/20 10:22 Dose: 5 mg Documented by: [facility]olic Acid ([facility] 1 Mg [facility]) [facility] Last Admin: 09/26/20 08:34 Dose: 1 mg Documented by: Heparin Sodium (Beef Lung) (Heparin Pf Lock 10 Units/Ml 50 Units/5 Ml Syringe) 50 units IV UD PRN PRN Reason: PICC Line Heparin Flush Hydromorphone HCl (Hydromorphone 1 Mg/Ml Syringe) 0.5 - 1 mg IV Q4H PRN PRN PRN Reason: Pain Score 1-10 Last Admin: 09/26/20 15:49 Dose: 1 mg Documented by: Sodium Chloride () 1,000 mls @ 15 mls/hr IV .Q48H [facility] Last Infusion: 09/26/20 05:22 Dose: 0 mls/hr Documented by: Vancomycin IV Pharmacy to Dose (1 each/ Sodium Chloride) 500 mls @ 250 mls/hr IV PRN PRN; Protocol PRN Reason: Rx to Dose Sodium Chloride () 500 mls @ 15 mls/hr IV PRN PRN PRN Reason: Blood Transfusion Sodium Chloride () 250 mls @ 15 mls/hr IV .[id number] PRN PRN Reason: Saline Flush Sodium Chloride () 250 mls @ 15 mls/hr IV .[id number] PRN PRN Reason: Additional IVPB Infusion Meropenem 1 gm/ Sodium (Chloride) 120 mls @ 33 mls/hr IV Q8 [facility] Last Admin: 09/26/20 13:19 Dose: 33 mls/hr Documented by: Vancomycin HCl (Vancomycin) 1,000 mg in 200 mls @ 200 mls/hr IV Q12H [facility] Last Infusion: 09/26/20 06:27 Dose: Infused Documented by: Lactobacillus Acidophilus (Lactobacillus Acidophilus) 2 tablet PO TID [facility] Last Admin: 09/26/20 13:19 Dose: 2 tablet Documented by: Levothyroxine Sodium (Levothyroxine 150 Mcg Tablet) 150 mcg PO DAILY@0600 [facility] Last Admin: 09/26/20 05:28 Dose: 150 mcg Documented by: [place] Carbonate ([place] Carbonate 300mg Capsule) 300 mg PO QHS [facility] Last Admin: 09/25/20 21:28 Dose: 300 mg Documented by: [place] Carbonate ([place] Carbonate 150 Mg Capsule) 150 mg PO QAM [facility] Last Admin: 09/26/20 10:22 Dose: 150 mg Documented by: Loperamide HCl (Loperamide 2 Mg Capsule) 2 mg PO Q4H PRN PRN PRN Reason: Diarrhea Last Admin: 09/24/20 12:14 Dose: 2 mg Documented by: Methadone HCl (Methadone 5 Mg Tablet) 5 mg PO TID [facility] Last Admin: 09/26/20 13:19 Dose: 5 mg Documented by: Montelukast Sodium (Montelukast 10 Mg Tablet) 10 mg PO QHS [facility] Last Admin: 09/25/20 21:28 Dose: 10 mg Documented by: Multivitamins/Minerals (Multivitamins,Ther W-Minerals Tablet) [facility] Last Admin: 09/26/20 08:33 Dose: 1 tablet Documented by: Nicotine (Nicotine 21 Mg Patch) 21 mg TD QHS [facility] Last Admin: 09/25/20 10:01 Dose: 21 mg Documented by: Nystatin (Nystatin Powder 15gm Bottle) 1 applic TOPICAL BID [facility]; Protocol Last Admin: 09/26/20 10:22 Dose: 1 applic Documented by: Olanzapine (Olanzapine 5 Mg/Tab Tab.Rapdis) 5 mg PO TID [facility] Last Admin: 09/26/20 13:27 Dose: Not Given Documented by: Ondansetron HCl (Ondansetron 4 Mg/2 Ml Vial) 4 mg IV Q8H PRN PRN PRN Reason: NAUSEA/VOMITING Pantoprazole Sodium (Pantoprazole Sodium 40 Mg Tablet) 40 mg PO BID [facility] Last Admin: 09/26/20 10:22 Dose: 40 mg Documented by: Sodium Chloride (0.9% Saline Lock 10 Ml Syringe) 10 - 40 ml IV UD PRN PRN Reason: Open End PICC Flush Last Admin: 09/26/20 01:04 Dose: 10 ml Documented by: Sodium Chloride (0.9 % Nacl (Sterile) Posiflush 10 Ml) 10 - 40 ml IV UD PRN PRN Reason: Port access or dressing change Tamsulosin HCl (Tamsulosin Hcl 0.4 Mg Capsule) 0.4 mg PO DAILY@1730 [facility] Last Admin: 09/26/20 15:52 Dose: 0.4 mg Documented by: Thiamine HCl (Thiamine Hydrochloride 100 Mg Tablet) 100 mg PO DAILY [facility] Last Admin: 09/26/20 10:23 Dose: 100 mg Documented by: Medical Necessity - Tobacco Use Smoking Status: Current every day smoker Assessment/Plan All Active Problems (Last Reviewed 09/23/20 @ 09:[address] Baljit Spencer MD) GI bleed (Acute) Anemia (Acute) Abdominal pain (Acute) History of non-ST elevation myocardial infarction (NSTEMI) (Resolved 06/26/20) Non-Hodgkin lymphoma in remission (Resolved) Takotsubo cardiomyopathy (Resolved 06/2019) #1 acute upper GI bleed secondary to gastritis-patient's hemoglobin is stable at this time, I do not think he needs labs repeated at this time #2 chronic osteomyelitis of the sacrum-patient is currently receiving antibiotics, infectious diseases is seeing patient #3 urinary incontinence secondary to presumed BPH with overflow incontinence-his Domínguez will be continued when he goes to the [place] [facility] at least for 5 days. #4 chronic obstructive pulmonary disease #5 essential hypertension #6 acute blood loss anemia secondary to acute upper GI bleed-requiring blood transfusion, patient's hemoglobin appears to be stable at this time Inpatient E&M: [id number] [facility] Hosp L2
[2020-09-26 19:56] VITALS: BP 127/84; PULSE 105; RESP 16; TEMP 37.1; O2SAT 97
[2020-09-26 20:15] VITALS: PULSE 105
[2020-09-26] MEDS: Montelukast 10 MG Tablet PO (21:40)
[2020-09-26] MEDS: Lithium Carbonate 300mg Capsule 300 MG PO (21:41)
[2020-09-27] MEDS: 0.9% Saline Lock 10 ML Syringe IV ×4 (00:04→23:30)
[2020-09-27] MEDS: HYDROmorphone 1 MG/ML Syringe IV ×6 (00:04→23:27)
[2020-09-27 02:53] VITALS: BP 115/72; PULSE 103; RESP 18; TEMP 37.7; O2SAT 94
[2020-09-27 03:00] VITALS: PULSE 103
[2020-09-27] MEDS: OLANZapine 5 MG/TAB TAB.RAPDIS PO ×3 (05:25→21:03)
[2020-09-27] MEDS: Levothyroxine 150 MCG Tablet PO (05:26)
[2020-09-27] MEDS: Vancomycin IV 1,000 MG/200 ML BAG 200 MG IV (05:31)
[2020-09-27] MEDS: Acetaminophen 325 MG Tablet 650 MG PO ×2 (05:43→17:37)
[2020-09-27 05:57] LABS: Vancomycin, Trough Level 23.9 ug/mL (5.0-15.0)
[2020-09-27] MEDS: Folic Acid 1 MG Tablet PO (08:23)
[2020-09-27] MEDS: Multivitamins,Ther W-Minerals Tablet 1 TABLET PO (08:23)
--- NOTE | 2020-09-27 08:37 | PCM.RX.CS ---
Consult Pharmacy has been consulted to manage selected antiobiotic: Vancomycin Type of Consult: Follow-up Suspected Infection: Osteomyelitis Labs: Sodium 142 mmol/L (136-145) 09/24/20 05:45 Potassium 3.9 mmol/L (3.5-5.1) 09/24/20 05:45 Chloride 113 mmol/L (98-107) H 09/24/20 05:45 Carbon Dioxide 23.0 mmol/L (21.0-32.0) 09/24/20 05:45 Anion Gap 6 (5-15) 09/24/20 05:45 BUN 8 mg/dL (7-18) 09/24/20 05:45 Creatinine 0.99 mg/dL (0.70-1.30) 09/24/20 05:45 Est GFR (MDRD) Af Amer 102 mL/min (>60) 09/24/20 05:45 Est GFR (MDRD) Non-Af 84 mL/min (>60) 09/24/20 05:45 BUN/Creatinine Ratio 8.1 RATIO (10-20) L 09/24/20 05:45 Glucose 108 mg/dL (74-106) H 09/24/20 05:45 Vancomycin Trough 23.9 ug/mL (5.0-15.0) H 09/27/20 05:14 Random Vancomycin 19.4 ug/mL (0.0-15.0) H 09/25/20 06:10 Microbiology: Microbiology 09/22/20 20:37 Blood Culture (Wb) - Pic Blood Culture - Preliminary No growth in 48 hours. 09/22/20 22:55 Blood Culture (Wb) - Pic Blood Culture - Preliminary No growth in 48 hours. 09/23/20 15:30 Stool C. difficile DNA Amplification - Final 09/22/20 22:40 Stool Stool Occult Blood (KEM) - Final Occult Blood Positive 09/22/20 20:46 Nasal Secretion SARS-CoV-2 Antigen (Rapid) - Final Goal Trough: 15-20 mcg/mL Pharmacy Plan for Drug Dosing: VANCOMYCIN LEVEL RECEIVED Current Vancomycin Dose: 1000MG Q12H Number of Doses Received: 6 Vancomycin Level: 23.9 Hours Since Last Dose: 11 Renal Function: 0.99 Renal Function Trend: Stable Lab/Micro: Vancomycin Plan/Comments: pt has an elevated trough, and pt received the next dose of Vancomycin 1000mg. Recommend holding next few doses and checking level 09/28/20 at 1730 Pending Level: 09/28/20 at 1730 Pharmacy Service will continue to monitor and adjust dosing as required. Follow-Up Labs: Trough Vancomycin - 09/28 @ 1730
[2020-09-27 09:00] VITALS: BP 114/69; PULSE 101; RESP 18; TEMP 37; O2SAT 95
[2020-09-27] MEDS: Nystatin Powder 15gm Bottle 1 APPLIC TOPICAL ×2 (09:40→21:03)
[2020-09-27] MEDS: Finasteride 5 MG Tablet PO (09:41)
[2020-09-27] MEDS: Lithium Carbonate 150 MG Capsule PO (09:41)
[2020-09-27] MEDS: Pantoprazole Sodium 40 MG Tablet PO ×2 (09:41→21:02)
[2020-09-27] MEDS: Menthol/Lanolin/Calamine/Znox 113 GM Tube 1 APPLIC TOPICAL ×2 (09:42→21:03)
[2020-09-27] MEDS: Thiamine Hydrochloride 100 MG Tablet PO (09:42)
--- NOTE | 2020-09-27 14:20 | PN_ITS ---
Patient Problems: Active and Suspected Problems (Last Reviewed 09/23/20 @ 09:[address] Baljit Spencer MD) GI bleed (Acute) Anemia (Acute) Abdominal pain (Acute) Subjective: Patient was seen and examined today, he voices no specific complaints, we did not receive approval for the patient to go back to his extended care facility ye and so will be at least Tuesday before we can hear anything concerning that. Objective: General: Alert, Oriented x3, Cooperative, No apparent distress, Well developed, Well nourished HEENT: Atraumatic, PERRLA, EOMI, Normocephalic Oral: Moist Mucosa Neck: Supple, No JVD, Trachea Midline, Thyroid Normal Size and Texture Lungs: Clear to auscultation, Normal air movement, No rhonchi, No wheeze, No rales Cardiovascular: Regular rate, Regular Rhythm, Normal S1, Normal S2, No murmurs, PMI Normal, No rub noted, No Gallop Abdomen: Bowel Sounds Present, Soft, Non Tender, Non-Distended, No hernias noted Extremities: No clubbing, No cyanosis, No edema, Capillary Refill Less than 3 Seconds Skin: No rashes, No breakdown Musculoskeletal: No Tenderness to Palpation of Joints or Extremities Neurological: Cranial nerves II-XII grossly intact, Neuro grossly intact, Sensory exam intact to light touch and pain Psych/Mental Status: Normal Affect, Appropriate, Alert and oriented to time, place, person, mood and affect - Physical Exam Vitals/I&O's: Vital Signs Temp Pulse Resp BP Pulse Ox 98.6 F 101 H 18 114/69 95 09/27/20 09:00 09/27/20 09:00 09/27/20 09:00 09/27/20 09:00 09/27/20 09:00 Oxygen Delivery Method Room Air Weight: 65.6 kg Body Mass Index (BMI) 23.0 Finger Stick Blood Glucose 118 Intake and Output for Last 24 Hours 09/25/20 09/26/20 09/27/20 23:59 23:59 23:59 Intake Total 5446.50 / 5446.50 1711.0 / 1711.0 801.25 / 801.25 Output Total 4850 / 4850 2750 / 2750 1500 / 1500 Balance 596.50 / 596.50 -1039.0 / -1039.0 -698.75 / -698.75 Microbiology Past 72 Hours 09/22/20 20:37 Blood Culture (Wb) - Pic Blood Culture - Preliminary No growth in 48 hours. 09/22/20 22:55 Blood Culture (Wb) - Pic Blood Culture - Preliminary No growth in 48 hours. Laboratory Results 09/27/20 05:14: Vancomycin Trough 23.9 H Current Medications Acetaminophen (Acetaminophen 325 Mg Tablet) 650 mg PO Q6H PRN PRN PRN Reason: Pain Score 1-10/Temp > 100.7 F Last Admin: 09/27/20 05:43 Dose: 650 mg Documented by: Calamine/Phenol (Menthol/Lanolin/Calamine/Znox 113 Gm Tube) 1 applic TOPICAL BID [facility]; Protocol Last Admin: 09/27/20 09:42 Dose: 1 dose Documented by: Finasteride (Finasteride 5 Mg Tablet) 5 mg PO DAILY [facility] Last Admin: 09/27/20 09:41 Dose: 5 mg Documented by: Folic Acid (Folic Acid 1 Mg Tablet) 1 mg PO DAILYCM [facility] Last Admin: 09/27/20 08:23 Dose: 1 mg Documented by: Heparin Sodium (Beef Lung) (Heparin Pf Lock 10 Units/Ml 50 Units/5 Ml Syringe) 50 units IV UD PRN PRN Reason: PICC Line Heparin Flush Hydromorphone HCl (Hydromorphone 1 Mg/Ml Syringe) 0.5 - 1 mg IV Q4H PRN PRN PRN Reason: Pain Score 1-10 Last Admin: 09/27/20 09:38 Dose: 1 mg Documented by: Sodium Chloride () 1,000 mls @ 15 mls/hr IV .Q48H [facility] Last Infusion: 09/27/20 05:30 Dose: 0 mls/hr Documented by: Vancomycin IV Pharmacy to Dose (1 each/ Sodium Chloride) 500 mls @ 250 mls/hr IV PRN PRN; Protocol PRN Reason: Rx to Dose Sodium Chloride () 500 mls @ 15 mls/hr IV PRN PRN PRN Reason: Blood Transfusion Sodium Chloride () 250 mls @ 15 mls/hr IV .[id number] PRN PRN Reason: Saline Flush Sodium Chloride () 250 mls @ 15 mls/hr IV .[id number] PRN PRN Reason: Additional IVPB Infusion Meropenem 1 gm/ Sodium (Chloride) 120 mls @ 33 mls/hr IV Q8 [facility] Last Infusion: 09/27/20 10:30 Dose: Infused Documented by: Lactobacillus Acidophilus (Lactobacillus Acidophilus) 2 tablet PO TID [facility] Last Admin: 09/27/20 05:25 Dose: 2 tablet Documented by: Levothyroxine Sodium (Levothyroxine 150 Mcg Tablet) 150 mcg PO DAILY@0600 [facility] Last Admin: 09/27/20 05:26 Dose: 150 mcg Documented by: Prue Carbonate (Prue Carbonate 300mg Capsule) 300 mg PO QHS [facility] Last Admin: 09/26/20 21:41 Dose: 300 mg Documented by: Prue Carbonate (Prue Carbonate 150 Mg Capsule) 150 mg PO QAM [facility] Last Admin: 09/27/20 09:41 Dose: 150 mg Documented by: Loperamide HCl (Loperamide 2 Mg Capsule) 2 mg PO Q4H PRN PRN PRN Reason: Diarrhea Last Admin: 09/24/20 12:14 Dose: 2 mg Documented by: Methadone HCl (Methadone 5 Mg Tablet) 5 mg PO TID [facility] Last Admin: 09/27/20 05:25 Dose: 5 mg Documented by: Montelukast Sodium (Montelukast 10 Mg Tablet) 10 mg PO QHS [facility] Last Admin: 09/26/20 21:40 Dose: 10 mg Documented by: Multivitamins/Minerals (Multivitamins,Ther W-Minerals Tablet) [facility] Last Admin: 09/27/20 08:23 Dose: 1 tablet Documented by: Nicotine ([facility] 21 Mg Patch) [facility] Admin: 09/26/20 21:40 Dose: 21 mg Documented by: Nystatin (Nystatin Powder 15gm Bottle) 1 applic TOPICAL BID [facility]; Protocol Last Admin: 09/27/20 09:40 Dose: 1 applic Documented by: Olanzapine (Olanzapine 5 Mg/Tab Tab.Rapdis) 5 mg PO TID [facility] Last Admin: 09/27/20 05:25 Dose: 5 mg Documented by: Ondansetron HCl (Ondansetron 4 Mg/2 Ml Vial) 4 mg IV Q8H PRN PRN PRN Reason: NAUSEA/VOMITING Pantoprazole Sodium (Pantoprazole Sodium 40 Mg Tablet) 40 mg PO BID [facility] Last Admin: 09/27/20 09:41 Dose: 40 mg Documented by: Sodium Chloride (0.9% Saline Lock 10 Ml Syringe) 10 - 40 ml IV UD PRN PRN Reason: Open End PICC Flush Last Admin: 09/27/20 09:38 Dose: 10 ml Documented by: Sodium Chloride (0.9 % Nacl (Sterile) Posiflush 10 Ml) 10 - 40 ml IV UD PRN PRN Reason: Port access or dressing change Tamsulosin HCl (Tamsulosin Hcl 0.4 Mg Capsule) 0.4 mg PO DAILY@1730 [facility] Last Admin: 09/26/20 15:52 Dose: 0.4 mg Documented by: Thiamine HCl (Thiamine Hydrochloride 100 Mg Tablet) 100 mg PO DAILY [facility] Last Admin: 09/27/20 09:42 Dose: 100 mg Documented by: Medical Necessity - Tobacco Use Smoking Status: Current every day smoker Assessment/Plan All Active Problems (Last Reviewed 09/23/20 @ 09:[address] Baljit Spencer MD) GI bleed (Acute) Anemia (Acute) Abdominal pain (Acute) History of non-ST elevation myocardial infarction (NSTEMI) (Resolved 06/26/20) Non-Hodgkin lymphoma in remission (Resolved) Takotsubo cardiomyopathy (Resolved 06/2019) #1 acute upper GI bleed secondary to gastritis-patient's hemoglobin is stable at this time, I do not think he needs labs repeated at this time #2 chronic osteomyelitis of the sacrum-patient is currently receiving antibiotics, infectious diseases is seeing patient #3 urinary incontinence secondary to presumed BPH with overflow incontinence-I am considering discontinuing his Domínguez tomorrow to see if he can void, I went over this with the patient #4 chronic obstructive pulmonary disease #5 essential hypertension #6 acute blood loss anemia secondary to acute upper GI bleed-requiring blood transfusion, patient's hemoglobin appears to be stable at this time Inpatient E&M: 39517 Subs Hosp L2
--- NOTE | 2020-09-27 14:30 | CM.ED ---
SOCIAL WORK Met with patient in room. Introduced role. Informed patient still awaiting precert at this time. Patient voiced frustration with insurances process. Patient states I'm just ready to get out of here. Support and active listening provided. Gabriela Richards, WHEEL ASSEMBLER, COMBINATION TECHNICIAN
[2020-09-27 14:32] VITALS: BP 116/75; PULSE 96; RESP 18; TEMP 37.2; O2SAT 95
[2020-09-27 15:33] VITALS: O2SAT 94
[2020-09-27] MEDS: Tamsulosin HCl 0.4 MG Capsule PO (17:26)
--- NOTE | 2020-09-27 17:50 | NURSING ---
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
[2020-09-27 20:50] VITALS: BP 112/73; PULSE 103; RESP 18; TEMP 36.8; O2SAT 95
[2020-09-27] MEDS: Lithium Carbonate 300mg Capsule 300 MG PO (21:02)
[2020-09-27] MEDS: Montelukast 10 MG Tablet PO (21:03)
[2020-09-28 05:18] VITALS: BP 103/73; PULSE 106; RESP 16; TEMP 37; O2SAT 95
[2020-09-28] MEDS: OLANZapine 5 MG/TAB TAB.RAPDIS PO ×3 (05:22→22:08)
[2020-09-28] MEDS: Levothyroxine 150 MCG Tablet PO (05:22)
[2020-09-28] MEDS: HYDROmorphone 1 MG/ML Syringe IV ×4 (05:27→19:37)
[2020-09-28] MEDS: 0.9% Saline Lock 10 ML Syringe IV ×3 (05:31→19:38)
[2020-09-28 06:35] VITALS: O2SAT 94
[2020-09-28 10:23] VITALS: BP 97/59; PULSE 99; RESP 18; TEMP 36.7; O2SAT 94
[2020-09-28] MEDS: Multivitamins,Ther W-Minerals Tablet 1 TABLET PO (10:34)
[2020-09-28] MEDS: Pantoprazole Sodium 40 MG Tablet PO ×2 (10:34→22:08)
[2020-09-28] MEDS: Finasteride 5 MG Tablet PO (10:34)
[2020-09-28] MEDS: Lithium Carbonate 150 MG Capsule PO (10:36)
[2020-09-28] MEDS: Folic Acid 1 MG Tablet PO (10:37)
[2020-09-28] MEDS: Menthol/Lanolin/Calamine/Znox 113 GM Tube 1 APPLIC TOPICAL ×2 (10:38→22:09)
[2020-09-28] MEDS: Thiamine Hydrochloride 100 MG Tablet PO (10:38)
[2020-09-28] MEDS: Nystatin Powder 15gm Bottle 1 APPLIC TOPICAL ×2 (10:38→22:08)
[2020-09-28 13:36] VITALS: BP 97/65; PULSE 110; RESP 18; TEMP 36.5; O2SAT 95
--- NOTE | 2020-09-28 15:13 | PCM.PROGNOTE ---
Patient Problems: Active and Suspected Problems (Last Reviewed 09/23/20 @ 09:[address] Baljit Spencer MD) GI bleed (Acute) Anemia (Acute) Abdominal pain (Acute) Subjective: Patient was seen and examined today, I asked him about getting up out of bed because every time I been visiting him the patient has been in bed, patient states he was walking down the madsen-nursing states that he has not been. Patient had questions about allowing other visitors here in his room, he had problems earlier in the week with a friend of his bringing on illicit drugs to the room-patient denies that he requested these drugs instead states that the patient dropped him in his room. I told him I had no problems with him having other family visitors, I cautioned that they were not to bring any drugs into the hospital however and he understood this. Objective: General: Alert, Oriented x3, Cooperative, No apparent distress, Well developed, Well nourished HEENT: Atraumatic, PERRLA, EOMI, Normocephalic Oral: Moist Mucosa Neck: Supple, No JVD, Trachea Midline, Thyroid Normal Size and Texture Lungs: Clear to auscultation, Normal air movement, No rhonchi, No wheeze, No rales Cardiovascular: Regular rate, Regular Rhythm, Normal S1, Normal S2, No murmurs, PMI Normal, No rub noted, No Gallop Abdomen: Bowel Sounds Present, Soft, Non Tender, Non-Distended, No hernias noted Extremities: No clubbing, No cyanosis, No edema, Capillary Refill Less than 3 Seconds Skin: No rashes, No breakdown Musculoskeletal: No Tenderness to Palpation of Joints or Extremities Neurological: Cranial nerves II-XII grossly intact, Neuro grossly intact, Sensory exam intact to light touch and pain Psych/Mental Status: Normal Affect, Appropriate, Alert and oriented to time, place, person, mood and affect - Physical Exam Vitals/I&O's: Vital Signs Temp Pulse Resp BP Pulse Ox 97.7 F L 110 H 18 97/65 95 09/28/20 13:36 09/28/20 13:36 09/28/20 13:36 09/28/20 13:36 09/28/20 13:36 Oxygen Delivery Method Room Air Weight: 65.6 kg Body Mass Index (BMI) 23.0 Finger Stick Blood Glucose 118 Intake and Output for Last 24 Hours 09/26/20 09/27/20 09/28/20 23:59 23:59 23:59 Intake Total 1711.0 / 1711.0 2671.25 / 3171.25 1240 / 1240 Output Total 2750 / 2750 3400 / 4650 2550 / 2550 Balance -1039.0 / -1039.0 -728.75 / -1478.75 -1310 / -1310 Microbiology Past 72 Hours 09/22/20 20:37 Blood Culture (Wb) - Pic Blood Culture - Final No growth in 5 days. 09/22/20 22:55 Blood Culture (Wb) - Pic Blood Culture - Final No growth in 5 days. Current Medications Acetaminophen (Acetaminophen 325 Mg Tablet) 650 mg PO Q6H PRN PRN PRN Reason: Pain Score 1-10/Temp > 100.7 F Last Admin: 09/27/20 17:37 Dose: 650 mg Documented by: Calamine/Phenol (Menthol/Lanolin/Calamine/Znox 113 Gm Tube) 1 applic TOPICAL BID [facility]; Protocol Last Admin: 09/28/20 10:38 Dose: 1 dose Documented by: Finasteride (Finasteride 5 Mg Tablet) 5 mg PO DAILY [facility] Last Admin: 09/28/20 10:34 Dose: 5 mg Documented by: Folic Acid ([facility] 1 Mg Tablet) [facility] Last Admin: 09/28/20 10:37 Dose: 1 mg Documented by: Heparin Sodium (Beef Lung) (Heparin Pf Lock 10 Units/Ml 50 Units/5 Ml Syringe) 50 units IV UD PRN PRN Reason: PICC Line Heparin Flush Hydromorphone HCl (Hydromorphone 1 Mg/Ml Syringe) 0.5 - 1 mg IV Q4H PRN PRN PRN Reason: Pain Score 1-10 Last Admin: 09/28/20 14:40 Dose: 1 mg Documented by: Sodium Chloride () 1,000 mls @ 15 mls/hr IV .Q48H [facility] Last Infusion: 09/27/20 05:30 Dose: 0 mls/hr Documented by: Vancomycin IV Pharmacy to Dose (1 each/ Sodium Chloride) 500 mls @ 250 mls/hr IV PRN PRN; Protocol PRN Reason: Rx to Dose Sodium Chloride () 500 mls @ 15 mls/hr IV PRN PRN PRN Reason: Blood Transfusion Sodium Chloride () 250 mls @ 15 mls/hr IV .[id number] PRN PRN Reason: Saline Flush Sodium Chloride () 250 mls @ 15 mls/hr IV .[id number] PRN PRN Reason: Additional IVPB Infusion Meropenem 1 gm/ Sodium (Chloride) 120 mls @ 33 mls/hr IV Q8 [facility] Last Admin: 09/28/20 13:40 Dose: 33 mls/hr Documented by: Lactobacillus Acidophilus (Lactobacillus Acidophilus) 2 tablet PO TID [facility] Last Admin: 09/28/20 13:40 Dose: 2 tablet Documented by: Levothyroxine Sodium (Levothyroxine 150 Mcg Tablet) 150 mcg PO DAILY@0600 [facility] Last Admin: 09/28/20 05:22 Dose: 150 mcg Documented by: [place] Carbonate ([place] Carbonate 300mg Capsule) 300 mg PO QHS [facility] Last Admin: 09/27/20 21:02 Dose: 300 mg Documented by: [place] Carbonate ([place] Carbonate 150 Mg Capsule) 150 mg PO QAM [facility] Last Admin: 09/28/20 10:36 Dose: 150 mg Documented by: Loperamide HCl (Loperamide 2 Mg Capsule) 2 mg PO Q4H PRN PRN PRN Reason: Diarrhea Last Admin: 09/24/20 12:14 Dose: 2 mg Documented by: Methadone HCl (Methadone 5 Mg Tablet) 5 mg PO TID [facility] Last Admin: 09/28/20 13:42 Dose: 5 mg Documented by: Montelukast Sodium (Montelukast 10 Mg Tablet) 10 mg PO QHS [facility] Last Admin: 09/27/20 21:03 Dose: 10 mg Documented by: Multivitamins/Minerals (Multivitamins,Ther W-Minerals Tablet) 1 tablet PO DAILYCM [facility] Last Admin: 09/28/20 10:34 Dose: 1 tablet Documented by: Nicotine Polacrilex (Nicotine Polacrilex 4 Mg Gum) 4 mg PO Q2H PRN PRN PRN Reason: Nicotine Craving Last Admin: 09/28/20 14:42 Dose: 4 mg Documented by: Nystatin (Nystatin Powder 15gm Bottle) 1 applic TOPICAL BID [facility]; Protocol Last Admin: 09/28/20 10:38 Dose: 1 applic Documented by: Olanzapine (Olanzapine 5 Mg/Tab Tab.Rapdis) 5 mg PO TID [facility] Last Admin: 09/28/20 13:44 Dose: 5 mg Documented by: Ondansetron HCl (Ondansetron 4 Mg/2 Ml Vial) 4 mg IV Q8H PRN PRN PRN Reason: NAUSEA/VOMITING Pantoprazole Sodium (Pantoprazole Sodium 40 Mg Tablet) 40 mg PO BID [facility] Last Admin: 09/28/20 10:34 Dose: 40 mg Documented by: Sodium Chloride (0.9% Saline Lock 10 Ml Syringe) 10 - 40 ml IV UD PRN PRN Reason: Open End PICC Flush Last Admin: 09/28/20 14:41 Dose: 10 ml Documented by: Sodium Chloride (0.9 % Nacl (Sterile) Posiflush 10 Ml) 10 - 40 ml IV UD PRN PRN Reason: Port access or dressing change Tamsulosin HCl (Tamsulosin Hcl 0.4 Mg Capsule) 0.4 mg PO DAILY@1730 [facility] Last Admin: 09/27/20 17:26 Dose: 0.4 mg Documented by: Thiamine HCl (Thiamine Hydrochloride 100 Mg Tablet) 100 mg PO DAILY [facility] Last Admin: 09/28/20 10:38 Dose: 100 mg Documented by: Medical Necessity - Tobacco Use Smoking Status: Current every day smoker Assessment/Plan All Active Problems (Last Reviewed 09/23/20 @ 09:[address] Baljit Spencer MD) GI bleed (Acute) Anemia (Acute) Abdominal pain (Acute) History of non-ST elevation myocardial infarction (NSTEMI) (Resolved 06/26/20) Non-Hodgkin lymphoma in remission (Resolved) Takotsubo cardiomyopathy (Resolved 06/2019) #1 acute upper GI bleed secondary to gastritis-patient's hemoglobin is stable at this time #2 chronic osteomyelitis of the sacrum-patient is currently receiving antibiotics, infectious diseases is seeing patient #3 urinary incontinence secondary to presumed BPH with overflow incontinence-I talked to the patient about discontinuing his Domínguez today and he is willing to try it, I have given an order to discontinue his Domínguez and we will monitor whether he has any voiding problems #4 chronic obstructive pulmonary disease #5 essential hypertension #6 acute blood loss anemia secondary to acute upper GI bleed-requiring blood transfusion, patient's hemoglobin appears to be stable at this time #7 chronic debility-the plan is for the patient to return to his skilled care facility, he needs to complete his IV antibiotic course and rehab. I suspect we will hear from the nursing facility tomorrow as to whether he has been approved for return. Inpatient E&M: 13764 Subs Hosp L2
[2020-09-28] MEDS: Tamsulosin HCl 0.4 MG Capsule PO (16:55)
[2020-09-28] MEDS: 0.9% Normal Saline 1,000 ML 15 ML IV (18:14)
[2020-09-28 18:20] LABS: Vancomycin, Random Level 10.6 ug/mL (0.0-15.0)
[2020-09-28] MEDS: Loperamide 2 MG Capsule PO (18:35)
--- NOTE | 2020-09-28 18:51 | PCM.RX.CS ---
Consult Pharmacy has been consulted to manage selected antiobiotic: Vancomycin Type of Consult: Follow-up Suspected Infection: Osteomyelitis Labs: Sodium 142 mmol/L (136-145) 09/24/20 05:45 Potassium 3.9 mmol/L (3.5-5.1) 09/24/20 05:45 Chloride 113 mmol/L (98-107) H 09/24/20 05:45 Carbon Dioxide 23.0 mmol/L (21.0-32.0) 09/24/20 05:45 Anion Gap 6 (5-15) 09/24/20 05:45 BUN 8 mg/dL (7-18) 09/24/20 05:45 Creatinine 0.99 mg/dL (0.70-1.30) 09/24/20 05:45 Est GFR (MDRD) Af Amer 102 mL/min (>60) 09/24/20 05:45 Est GFR (MDRD) Non-Af 84 mL/min (>60) 09/24/20 05:45 BUN/Creatinine Ratio 8.1 RATIO (10-20) L 09/24/20 05:45 Glucose 108 mg/dL (74-106) H 09/24/20 05:45 Vancomycin Trough 23.9 ug/mL (5.0-15.0) H 09/27/20 05:14 Random Vancomycin 10.6 ug/mL (0.0-15.0) 09/28/20 17:40 Microbiology: Microbiology 09/22/20 20:37 Blood Culture (Wb) - Pic Blood Culture - Final No growth in 5 days. 09/22/20 22:55 Blood Culture (Wb) - Pic Blood Culture - Final No growth in 5 days. 09/23/20 15:30 Stool C. difficile DNA Amplification - Final 09/22/20 22:40 Stool Stool Occult Blood (KEM) - Final Occult Blood Positive 09/22/20 20:46 Nasal Secretion SARS-CoV-2 Antigen (Rapid) - Final Goal Trough: 15-20 mcg/mL Pharmacy Plan for Drug Dosing: VANCOMYCIN LEVEL RECEIVED Current Vancomycin Dose: current dose was being held due to elevated trough Number of Doses Received: Vancomycin Level: 10.6 Hours Since Last Dose: 36 Renal Function: SrCr 0.99 Renal Function Trend: stable Lab/Micro: Vancomycin Plan/Comments: recommend to restart patient at a dose of 750mg q12h. will check a trough before the 3rd dose (09/29 at 1830) to avoid MT Expanse switch over on 09/30 Pending Level: 09/29 at 1830 Pharmacy Service will continue to monitor and adjust dosing as required. Follow-Up Labs: Trough Vancomycin - 09/29 @ 1830
[2020-09-28 19:50] VITALS: BP 108/65; PULSE 108; RESP 18; TEMP 36.9; O2SAT 95
[2020-09-28] MEDS: Montelukast 10 MG Tablet PO (22:08)
[2020-09-28] MEDS: Lithium Carbonate 300mg Capsule 300 MG PO (22:08)
[2020-09-29 02:30] VITALS: BP 109/63; PULSE 90; RESP 16; TEMP 37.1; O2SAT 97
[2020-09-29] MEDS: 0.9% Saline Lock 10 ML Syringe IV ×3 (03:01→11:45)
[2020-09-29] MEDS: HYDROmorphone 1 MG/ML Syringe IV ×2 (03:01→06:56)
[2020-09-29] MEDS: Levothyroxine 150 MCG Tablet PO (06:40)
[2020-09-29] MEDS: OLANZapine 5 MG/TAB TAB.RAPDIS PO (06:40)
[2020-09-29] MEDS: Loperamide 2 MG Capsule PO (07:27)
[2020-09-29] MEDS: Folic Acid 1 MG Tablet PO (08:51)
[2020-09-29] MEDS: Pantoprazole Sodium 40 MG Tablet PO (08:52)
[2020-09-29] MEDS: Nystatin Powder 15gm Bottle 1 APPLIC TOPICAL (08:52)
[2020-09-29] MEDS: Multivitamins,Ther W-Minerals Tablet 1 TABLET PO (08:52)
[2020-09-29] MEDS: Finasteride 5 MG Tablet PO (08:53)
[2020-09-29] MEDS: Lithium Carbonate 150 MG Capsule PO (08:53)
[2020-09-29] MEDS: Menthol/Lanolin/Calamine/Znox 113 GM Tube 1 APPLIC TOPICAL (08:54)
[2020-09-29] MEDS: Thiamine Hydrochloride 100 MG Tablet PO (08:54)
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
[2020-09-29 10:34] VITALS: BP 104/62; PULSE 107; RESP 16; TEMP 37.1; O2SAT 92
--- NOTE | 2020-09-29 10:50 | PCM.TXEXTCAR ---
- Diet 09/23/20 17:44 Diet: Regular - General Is pt able to select menu?: Yes Diet Comments: No red or purple drinks/foods - Routine Orders/Code Status Routine Lab Work: CBC Code Status: Full Code - Wound(s) sacrum Wound Type: Pressure Injury parker anal area Wound Type: excoriation - Therapies Physical Therapy: Eval and Treat Occupational Therapy: Eval and Treat - Allergies/Procedures Done in Hospital Allergies/Adverse Reactions: Allergies methotrexate Adverse Reaction (Verified 08/29/20 12:19) Hives,Rash,Lesions naproxen [From Naprosyn] Adverse Reaction (Verified 08/29/20 12:19) Upset Stomach BEE VENOM Allergy (Uncoded 06/25/20 21:31) Anaphylaxis ROOT BEER Allergy (Uncoded 06/25/20 21:31) Hives Procedures: EGD - Type of Care/Length of Stay Estimated LOS: Convalescent Care Less Than 30 days Type of Care Needed: Skilled Rehab Potential: Good Prognosis: Good - Additional Orders/Day of Discharge Day of Discharge: 09/29/20 - Dietary and Speech Recommendations Dietitian Recommendations/Changes: Continue regular diet and consult RD as needed. D/C plans to return to SNF. - Follow Up Care Primary Care Physician: Vi Velásquez MD [Primary Care Provider] - Please follow up with your Primary Care Physician in: 3-5 days
--- NOTE | 2020-09-29 12:41 | NURSING ---
face to face report given to he.
--- NOTE | 2020-09-29 16:33 | DS.PCM_ITS ---
Discharge Date and Diagnosis - Problem List Patient Problems: Active and Suspected Problems (Last Reviewed 09/23/20 @ 09:[address] Baljit Spencer MD) GI bleed (Acute) Anemia (Acute) Abdominal pain (Acute) Date of Admission: 09/23/20 Date of Discharge: 09/29/20 - Primary Discharge Diagnosis Acute Problems: Active Problems (Last Reviewed 09/23/20 @ 09:[address] Baljit Spencer MD) GI bleed (Acute) Anemia (Acute) Abdominal pain (Acute) - Secondary Discharge Diagnosis Chronic Problems: Chronic Problems (Last Reviewed 09/23/20 @ 09:[address] Baljit Spencer MD) Osteomyelitis of sacrum (Chronic) Bipolar disorder (Chronic) BPH (benign prostatic hyperplasia) (Chronic) Essential hypertension (Chronic) Amphetamine abuse (Chronic) Opiate abuse, continuous (Chronic) IVDU (intravenous drug user) (Chronic) COPD (chronic obstructive pulmonary disease) (Chronic) Hospital Course and Treatment Imaging Results: Clinical Impression(s) from Imaging Studies Chest X-Ray 09/22/20 20:37 IMPRESSION: No acute radiographic abnormalities. Electronically Signed: Odell Shelton MD at 21:11 EDT Tel , Service support , Abdomen/Pelvis CT 09/23/20 12:42 IMPRESSION: No acute abnormality. Status post posterior decompression lower lumbar spine with possible osteomyelitis of the upper sacrum. Electronically Signed: Erick Boles MD at 16:54 EDT Tel , Service support , Procedure: Upper GI endoscopy Indications: Heme positive stool, Active gastrointestinal bleeding Findings: The Z-line was regular and was found 39 cm from the incisors. No biopsies or other specimens were collected for this exam. Diffuse moderate inflammation characterized by linear erosions was found in the entire examined stomach. Biopsies were taken with a cold forceps for Helicobacter pylori testing. The examined duodenum was normal. No biopsies or other specimens were collected for this exam. Impression: - Z-line regular, 39 cm from the incisors. No specimens collected. - Gastritis. Biopsied. - Normal examined duodenum. No specimens collected. Recommendation: - [facility]. - Advance diet as tolerated. - Continue present medications. - Await pathology results. - Repeat upper endoscopy PRN for surveillance. - Return to primary care physician Consultations 09/23/20 03:16 Consult: Onc/Wound/hand carver Routine Comment: Reason for Consult:: sacral wound Operations: None Procedures: EGD Summary of Care Provided: Per HPI: The patient is a 55 year old M presenting today from [facility] with complaints of fever, tachycardia and generally just feeling unwell. Patient states that he was recently discharged from following surgery for debridement of a sacral wound. Patient has been on chronic IV antibiotics including vancomycin and Zosyn due to osteomyelitis of the sacrum. Patient reports he stopped taking his antibiotics 3 days ago because he is having large amounts of diarrhea. Patient reports black stools, occult stool positive for bl ood. Patient reports significant back pain. contacted by ER physician and patient has been accepted but transfer center states they will not have a bed until later today. Patient denies shortness of breath, chest pain, nausea, vomiting. Patient reports diarrhea in generally ill feeling. Hospital Course: 1. Acute blood loss anemia secondary to acute upper GI bleed secondary to ga [id number] male presented from [facility] initially with complaints of fever and tachycardia. He was found to have Hemoccult positive stools and was taken for an EGD and found to have gastritis. He was started on a PPI which she will continue twice daily on the day of discharge his hemoglobin was stable. I recommend that we hold his Eliquis for 5 more days and then re start while on his PPI. I discussed with him plan for discharge today to his alf and he expressed understanding of the risk benefits of going back to the SNF and would like to go back today. 2. Chronic osteomyelitis of the sacrum with chronic debility-infectious disease was consulted and recommended continuing the vancomycin and meropenem. His leukocytosis resolved and he has remained afebrile during his admission therefore would recommend continuing these antibiotics with outpatient follow-up with infectious disease for monitoring and adjustment. 3. Urinary incontinence secondary to BPH-he did have a Domínguez placed during his admission however this was removed a few days prior to discharge. He had been started on Flomax and states that he has done okay with it though he has had 1 or 2 episodes of incontinence after the Domínguez was removed. Would recommend continuing with both his Proscar and his Flomax for now and if necessary fol lowing up with urology as an outpatient. 4. Hypertension, history of Takotsubo's cardiomyopathy with reduced EF, history of DVT, hypothyroidism, bipolar disorder all chronic medical conditions which complicate his care. His home medications were continued where appropriate Patient Problems: Active and Suspected Problems (Last Reviewed 09/23/20 @ 09:[address] Baljit Spencer MD) GI bleed (Acute) Anemia (Acute) Abdominal pain (Acute) - Physical Exam Vitals/I&O's: Vital Signs Temp Pulse Resp BP Pulse Ox 98.7 F 107 H 16 104/62 92 09/29/20 10:34 09/29/20 10:34 09/29/20 10:34 09/29/20 10:34 09/29/20 10:34 Oxygen Delivery Method Room Air Weight: 144 lb 9.972 oz Body Mass Index (BMI) 23.0 Finger Stick Blood Glucose 118 Intake and Output for Last 24 Hours 09/27/20 09/28/20 09/29/20 23:59 23:59 23:59 Intake Total 2671.25 / 3171.25 1625 / 1625 840.25 / 840.25 Output Total 3400 / 4650 2550 / 2550 Balance -728.75 / -1478.75 -925 / -925 840.25 / 840.25 General: Alert, Oriented x3, Cooperative, No apparent distress HEENT: Atraumatic, PERRLA, EOMI, Normocephalic Oral: Moist Mucosa Neck: Supple, No JVD Lungs: Clear to auscultation, Normal air movement, No rhonchi, No wheeze, No rales Cardiovascular: Regular rate, Regular Rhythm, Normal S1, Normal S2, No murmurs Abdomen: Soft, Non Tender, Non-Distended, No Hepato-splenomegaly Extremities: No edema, Capillary Refill Less than 3 Seconds Skin: No rashes, No breakdown Neurological: Neuro grossly intact, Sensory exam intact to light touch and pain Psych/Mental Status: Normal Affect, Appropriate Microbiology Past 72 Hours 09/28/20 18:45 Mucosa - Nose SARS-CoV-2 Antigen (Rapid) - Final 09/22/20 20:37 Blood Culture (Wb) - Pic Blood Culture - Final No growth in 5 days. 09/22/20 22:55 Blood Culture (Wb) - Pic Blood Culture - Final No growth in 5 days. Laboratory Results 09/28/20 17:40: Random Vancomycin 10.6 Call your doctor if you observe: Fever of 101 or Higher, Shortness of breath, Dizziness, Fainting spells, Swelling in the ankles, Chest pain, Increased palpitations (irregular heartbeat) Home Medications: Medications to take at Discharge Montelukast [Singulair] 10 mg PO QHS 02/14/19 Ergocalciferol (Vitamin D2) [Vitamin D2] 50,000 unit PO FR 08/29/20 Folic Acid 1 mg PO DAILY 08/29/20 Levothyroxine Sodium [Synthroid] 175 mcg PO DAILY 08/29/20 [place] Carbonate [[place] Carbonate ER] 450 mg PO QHS 08/29/20 Methadone HCl 5 mg PO TID 08/29/20 Multivitamin with Minerals [Multivitamins with Minerals] 1 tablet PO DAILY 08/29/20 Nicotine [Nicoderm Cq] 21 mg TD QHS 08/29/20 Polyethylene Glycol 3350 [Miralax] 17 gm PO DAILY 08/29/20 Sennosides/Docusate Sodium [Sennosides-Docusate Sodium Tab] 2 tablet PO QHS 08/29/20 Thiamine HCl 100 mg PO DAILY 08/29/20 Dicyclomine HCl [Bentyl] 10 mg PO BID PRN 09/23/20 Finasteride [Proscar] 5 mg PO DAILY 09/23/20 Lactobacillus Rhamnosus GG [Culturelle] 1 each PO BID 09/23/20 Meropenem-0.9% Sodium Chloride [Meropenem-0.9% NaCl 1 Gram/50] 1 gm IV TID 09/23/20 Olanzapine [Zyprexa] 5 mg PO TID 09/23/20 Vancomycin/0.9 % Sod Chloride [Vanco 750 mg/150 ml-0.9% NaCl] 750 mg IV Q12H PRN 09/23/20 Apixaban [Eliquis] 5 mg PO BID #0 09/29/20 Pantoprazole Sodium [Protonix] 40 mg PO BID tablet 09/29/20 Tamsulosin HCl [Flomax] 0.4 mg PO DAILY@1730 capsule 09/29/20 Primary Care Physician: Vi Velásquez MD [Primary Care Provider] - Please follow up with your Primary Care Physician in: 3-5 days Disposition: Senior Living facility Minutes spent on discharge:: 35 Patient Condition:: Stable Medical Necessity - Tobacco Use Smoking Status: Current every day smoker Meaningful Use Info Meaningful Use Diagnoses (Choose all that apply): None applicable Inpatient E&M: 93747 Disch Hosp
== END 2020-09-29 12:45 | disposition skilled nursing facility (03) | DRG 241 ==
LOC: ED 20:18 → MS3 09-23 02:58
PROVIDERS: Internal Medicine; Internal Medicine Infectious Disease; Nurse Practitioner Family; Surgery; Admitting Provider Family Medicine; Emergency Provider Student in an Organized Health Care Education/Training Program; PCP Student in an Organized Health Care Education/Training Program; Visit Provider Family Medicine
PROC: 0DJ08ZZ Inspection of Upper Intestinal Tract, Via Natural or Artificial Opening Endoscopic (ICD-10-PCS; CPT 43235; principal; 2020-09-23 12:25)
DX: K29.71 Gastritis, unspecified, with bleeding (principal); M46.28 Osteomyelitis of vertebra, sacral and sacrococcygeal region; D62 Acute posthemorrhagic anemia; Z91.14 Patient's other noncompliance with medication regimen; J44.9 Chronic obstructive pulmonary disease, unspecified; N40.1 Benign prostatic hyperplasia with lower urinary tract symptoms; N39.490 Overflow incontinence; R39.15 Urgency of urination; R33.8 Other retention of urine; Z20.822 Contact with and (suspected) exposure to COVID-19; M06.9 Rheumatoid arthritis, unspecified; E03.9 Hypothyroidism, unspecified; I10 Essential (primary) hypertension; F31.9 Bipolar disorder, unspecified; F17.200 Nicotine dependence, unspecified, uncomplicated; F15.21 Other stimulant dependence, in remission; F11.21 Opioid dependence, in remission; Z79.01 Long term (current) use of anticoagulants; Z79.890 Hormone replacement therapy; Z79.899 Other long term (current) drug therapy; I25.2 Old myocardial infarction; Z85.72 Personal history of non-Hodgkin lymphomas; Z86.718 Personal history of other venous thrombosis and embolism
CPT/HCPCS: 36415; 71045; 74177; 80048; 80053; 80178; 80202; 82274; 83605; 84145; 84153; 85025; 85610; 85730; 86850; 86900; 86901; 86920; 86922; 87040; 87426; 87493; 88305; 88342; 93005; 97110; 97116; 97162; 97166; 97530; 97535; 97802; 97803; 99285; J2185; J7030; J7040; J7050; P9016; Q9967; A4216; G0103

== ENCOUNTER 2020-10-04 03:13 | Emergency (ER) | payer MEDICAID, SELFPAY ==
[2020-09-23 10:52] VITALS: BMI 23.0
[2020-10-04 03:14] VITALS: BP 113/69; PULSE 113; RESP 16; TEMP 37.5; O2SAT 96; BMI 23.9
[2020-10-04 03:18] VITALS: BP 113/69; PULSE 113; RESP 16; TEMP 37.5; O2SAT 96
[2020-10-04] MEDS: Ketorolac 30 MG/ML Syringe IM (03:50)
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
--- NOTE | 2020-10-04 03:54 | RAD_ITS ---
STUDY: X-RAY CHEST REASON FOR EXAM: Male, 55 years old. Eval port location TECHNIQUE: Single frontal view of the chest. COMPARISON: 09/22/2020 FINDINGS: RIGHT upper extremity PICC line again noted tip projecting over the SVC/superior cavoatrial junction. Minimal blunting of the RIGHT and mild blunting of the LEFT costophrenic angles. Not seen on prior study. There is no pneumothorax identified. No focal consolidation identified. Normal size heart. Aortic calcifications. There are diffuse degenerative changes of the visualized thoracic spine. There is a irregularity to the RIGHT humeral head which may represent Hill-Sachs deformity. There is scoliotic curvature to the spine. There is no demonstrated abnormality of the visualized soft tissue structures of the upper abdomen. RAD/Chest 1 View (Portable) IMPRESSION: Blunting of the costophrenic angles may represent effusions. This was not clearly seen on prior study. There is no focal consolidation identified. Electronically Signed: Dez Aviles MD at 5:25 EDT Tel , Service support ,
--- NOTE | 2020-10-04 04:00 | RAD_ITS ---
STUDY: X-RAY - RIGHT WRIST REASON FOR EXAM: Male, 55 years old. Pain, swelling, no trauma TECHNIQUE: 3 view(s) of the wrist were obtained. COMPARISON: Hand radiograph 08/22/2019. FINDINGS: Mild soft tissue swelling is present. No radiopaque foreign body identified. Mild degenerative changes greatest at the first CMC joint. There is no acute fracture or dislocation identified. There is deformity to the fifth metacarpal which may represent remote trauma. Similar to prior exam. RAD/Wrist min 3 Views IMPRESSION: Mild soft tissue swelling. No acute fracture identified. Electronically Signed: Dez Aviles MD at 5:31 EDT Tel , Service support ,
[2020-10-04 05:24] VITALS: RESP 16
--- NOTE | 2020-10-04 06:08 | ED.RN ---
Report called to [facility], nurse Amber, aware of pt returning to facility
[2020-10-04 07:29] VITALS: BP 99/75; PULSE 73; O2SAT 99
--- NOTE | 2020-10-04 07:38 | ED.RN ---
[facility] 1 HOUR DELAY ON ETA FOR TRANSPORT
== END 2020-10-04 08:15 | disposition home or self-care (01) ==
PROVIDERS: Emergency Provider Emergency Medicine; PCP Student in an Organized Health Care Education/Training Program
DX: M79.601 Pain in right arm (principal); M25.531 Pain in right wrist; M79.89 Other specified soft tissue disorders; F15.10 Other stimulant abuse, uncomplicated; F11.10 Opioid abuse, uncomplicated; I11.0 Hypertensive heart disease with heart failure; B18.2 Chronic viral hepatitis C; J44.9 Chronic obstructive pulmonary disease, unspecified; E03.9 Hypothyroidism, unspecified; M06.9 Rheumatoid arthritis, unspecified; F31.9 Bipolar disorder, unspecified; F17.200 Nicotine dependence, unspecified, uncomplicated; Z79.890 Hormone replacement therapy; Z79.01 Long term (current) use of anticoagulants; Z79.899 Other long term (current) drug therapy; I25.2 Old myocardial infarction
CPT/HCPCS: 71045; 73110; 96372; 99284; A4216

== ENCOUNTER → 2020-12-26 16:47 | Outpatient (CLI) | payer MEDICAID, SELFPAY ==
[2020-12-26 17:56] LABS: Amphetamine Urine VISTA NEGATIVE (<1000 ng/mL); Barbiturate Urine VISTA NEGATIVE (< 200 ng/mL); Benzodiazepine Urine VISTA NEGATIVE (< 200 ng/mL); Cocaine Urine VISTA NEGATIVE (< 300 ng/mL); Ecstacy Urine VISTA NEGATIVE (< 500 ng/mL); Methadone Urine VISTA POSITIVE (< 300 ng/mL); PCP Urine VISTA POSITIVE (< 25 ng/mL); THC Urine VISTA NEGATIVE (< 50 ng/mL); Vista UDS pH Range 6
== END ==
PROVIDERS: PCP Student in an Organized Health Care Education/Training Program; Referring Provider Anesthesiology; Visit Provider Anesthesiology
DX: F11.20 Opioid dependence, uncomplicated (principal)
CPT/HCPCS: 80307

== ENCOUNTER 2021-01-12 14:20 | Emergency (ER) | payer MEDICAID, SELFPAY ==
[2021-01-12 14:22] VITALS: BP 112/83; PULSE 82; RESP 14; TEMP 36.7; O2SAT 98; BMI 23.1
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
[2021-01-12 17:16] LABS: Bacteria 0 SEEN /hpf (None Seen); Mucous, Urine 0 SEEN /hpf (<or=2+); Red Blood Cells-Urine 0 SEEN /hpf (0-5); Squamous Epithelial Cells - UA 0 SEEN /hpf (0-5); White Blood Cells 0 SEEN /hpf (0-5)
--- NOTE | 2021-01-12 18:55 | ED.RN ---
rn at bedside with kami stewart rn to insert kuhn catheter d/t urinary retention. pt refused. this rn explained the importance of why the catheter is ordered. pt refused again. rn also offered straight cathing the patient to empty the bladder. pt refused. dr hurley notified at this time.
[2021-01-12 19:10] LABS: Anion Gap 6 (5-15); BUN 10 mg/dL (7-18); BUN/Creat Ratio 11.4 RATIO (10-20); Calcium,Total 8.8 mg/dL (8.5-10.1); Chloride 105 mmol/L (98-107); Creatinine, Serum 0.88 mg/dL (0.70-1.30); EST Glomerular Filtration Rate 96 mL/min (>60); Est Glom Filt Rate - Afr Amer 116 mL/min (>60); Glucose 88 mg/dL (74-106); Potassium 3.8 mmol/L (3.5-5.1); Sodium Level 137 mmol/L (136-145)
[2021-01-12 19:14] LABS: Absolute Lymphocyte Count 2.71 X10^3/uL (0.83-4.51); Basophil# 0.06 X10^3/uL; Basophil% 0.6 % (0-1); Eosinophil# 0.48 X10^3/uL; Eosinophils% 4.4 % (0-5); Hematocrit 44.3 % (40-54); Hemoglobin 13.2 g/dL (13.0-16.5); Lymphocyte # 2.71 X10^3/ul (0.83-4.51); Mean Corp Hgb Conc 29.8 g/dL (32-36); Mean Corpuscular Hgb 26.3 pg (27.0-32.0); Mean Corpuscular Volume 88.4 fL (80-94); Mean Platelet Vol. 8.8 fl (6.2-12.0); Monocyte# 0.56 X10^3/uL; Monocyte% 5.2 % (0-10); NRBC Flagged by Analyzer 0 % (0-5); Neutrophil # 7.01 X10^3/uL (2.7-7.7); Neutrophil % 64.6 % (47-70); Platelet Count 318 K/mm3 (150-450); RBC Distribution Width CV 15.9 % (11.6-14.6); RBC Distribution Width SD 51.6 fl (35.1-43.9); Red Blood Count 5.01 M/mm3 (4.6-6.2); White Blood Count 10.8 K/mm3 (4.4-11.0)
[2021-01-12 19:33] LABS: Color, Urine Yellow (Yellow); Glucose, Dipstick Normal (Normal); Ketone-Dipstick Negative (Negative); Leukocyte Esterase-Dipstick Negative /ul (Negative); Nitrite-Dipstick Negative (Negative); Occult Blood-Urine Negative /ul (Negative); Protein-Dipstick Negative (Negative); Urine Bilirubin Dipstick Negative (Negative); Urine Clarity Clear (Clear); Urine Urobilinogen Normal (Normal)
--- NOTE | 2021-01-12 20:04 | ED.RN ---
PT refused kuhn catheter multiple times. Daughter tried to get him to at least do a staight cath for relief, he refused. Explained the leg bag and showed him what it looks like and how to care for it. PT still refused. aware.
== END 2021-01-12 19:50 | disposition home or self-care (01) ==
PROVIDERS: Emergency Provider Emergency Medicine; PCP Student in an Organized Health Care Education/Training Program
DX: N40.1 Benign prostatic hyperplasia with lower urinary tract symptoms (principal); R33.8 Other retention of urine; I11.0 Hypertensive heart disease with heart failure; I50.20 Unspecified systolic (congestive) heart failure; J44.9 Chronic obstructive pulmonary disease, unspecified; B18.2 Chronic viral hepatitis C; E03.9 Hypothyroidism, unspecified; M06.9 Rheumatoid arthritis, unspecified; F31.9 Bipolar disorder, unspecified; F11.10 Opioid abuse, uncomplicated; F15.10 Other stimulant abuse, uncomplicated; F17.210 Nicotine dependence, cigarettes, uncomplicated; Z79.01 Long term (current) use of anticoagulants; Z79.899 Other long term (current) drug therapy; I25.2 Old myocardial infarction; Z86.73 Personal history of transient ischemic attack (TIA), and cerebral infarction without residual deficits
CPT/HCPCS: 80048; 81001; 85025; 99284

== ENCOUNTER 2021-01-14 17:17 | Emergency (ER) | payer MEDICAID, SELFPAY ==
[2021-01-14 17:17] VITALS: BP 127/83; PULSE 76; RESP 16; TEMP 36.6; O2SAT 99; BMI 23.1
--- NOTE | 2021-01-14 17:48 | RAD_ITS ---
INDICATION: Pain, distention, constipation x3 weeks EXAMINATION/TECHNIQUE: X-RAY - XR Abdomen Series W/ Chest 1 View COMPARISON: None FINDINGS: --Chest: LINES/DEVICES: None. LUNGS: No consolidation, edema or effusion. No pneumothorax. Subtle 1.6 cm round density in the right upper lobe. MEDIASTINUM AND CARDIOVASCULAR STRUCTURES: Cardiac silhouette not enlarged. Central airways and mediastinal contour are unremarkable. Tortuous and calcified thoracic aorta. BONES AND SOFT TISSUES: No acute findings. --Abdomen: BOWEL GAS PATTERN: Non-obstructive. Large amount of retained stool in the colon. FREE AIR: None visualized. ORGANOMEGALY: Not seen. CALCIFICATIONS: No abnormal calcifications observed. BONES AND SOFT TISSUES: No acute findings. Osteonecrosis of the right hip. Left hip total arthroplasty. RAD/Acute Abdomen Inc Chest IMPRESSION: Nonobstructive bowel gas pattern. Large amount of fecal retention. Subtle 1.6 cm round density in the right upper lobe. This could be due to overlapping rib shadows however cannot rule out pulmonary nodule. Consider lateral view radiograph. Osteonecrosis of the right hip. Electronically Signed: Odell Shelton MD at 18:28 EDT Tel , Service support ,
--- NOTE | 2021-01-14 18:21 | EDS_ITS ---
HPI HPI - GI History of Present Illness Chief Complaint: Constipation Informant: patient Abdominal Pain/Flank Pain Onset: Weeks (Patient reports has not had a bowel movement in 3 weeks) Context: Gradual Onset Timing: Continuous Quality: Cramping and Dull Location: Diffuse Current Severity: Mild Maximum Severity: Moderate Worsened by: Nothing Relieved by: Nothing Nausea/Vomiting/Emesis GI Symptom: Positive for Nausea; Negative for Vomiting Onset: Today Diarrhea/Melena/Hematochezia GI Symptom: Negative for Diarrhea, Melena and Hematochezia Associated Symptoms Associated Symptoms: Negative for Dysuria, Frequency and Hematuria Narrative Narrative: Patient is a middle-age male who presents because of no bowel movement for 3 weeks. He states he digitally disimpacted himself prior to coming in. He was sent in by his surgeon. He denies prior history of partial small bowel obstruction. He does report nausea without vomiting. He denies fever, chills night sweats. He denies cardiac respiratory symptoms. Does have history of COPD. He has no other complaints Prior similar symptoms: Yes Recent Illness/Hospitalization: Yes [facility] Medical History Acute ST elevation myocardial infarction (STEMI) of inferior wall (06/12/19) Acute systolic CHF (congestive heart failure) MALINDA (acute kidney injury) Amphetamine abuse Avascular necrosis of left femoral head Bacteremia Bipolar disorder Cholangitis COPD (chronic obstructive pulmonary disease) Encephalopathy Essential hypertension Hepatitis C, chronic History of non-ST elevation myocardial infarction (NSTEMI) (06/26/20) Hypothyroidism Intravenous drug abuse IVDU (intravenous drug user) NH lymphoma Nicotine dependence Non-Hodgkin lymphoma in remission Opiate abuse, continuous Rhabdomyolysis Rheumatoid arthritis Severe sepsis Takotsubo cardiomyopathy (06/2019) Home Medications montelukast 10 mg PO QHS 02/14/19 [History Last Taken 09/21/20] ergocalciferol (vitamin D2) 50,000 unit PO FR 08/29/20 [History Last Taken 09/19/20] folic acid 1 mg PO DAILY 08/29/20 [History Last Taken 09/22/20] levothyroxine 175 mcg PO DAILY 08/29/20 [History Last Taken 09/22/20] lithium carbonate 450 mg PO QHS 08/29/20 [History Last Taken 09/21/20] methadone 5 mg PO TID 08/29/20 [History Last Taken 09/22/20] multivitamin with minerals 1 tablet PO DAILY 08/29/20 [History Last Taken 09/22/20] nicotine 21 mg TD QHS 08/29/20 [History Last Taken 08/28/20] polyethylene glycol 3350 17 gm PO DAILY 08/29/20 [History Last Taken 08/29/20] sennosides-docusate sodium 2 tablet PO QHS 08/29/20 [History Last Taken 08/29/20] thiamine HCl (vitamin B1) 100 mg PO DAILY 08/29/20 [History Last Taken 09/22/20] Lactobacillus rhamnosus GG 1 each PO BID 09/23/20 [History Last Taken 09/22/20] dicyclomine 10 mg PO BID PRN 09/23/20 [History Last Taken Unknown] finasteride 5 mg PO DAILY 09/23/20 [History Last Taken 09/22/20] meropenem-0.9% sodium chloride 1 gm IV TID 09/23/20 [History Last Taken Unknown] olanzapine 5 mg PO TID 09/23/20 [History Last Taken 09/22/20] vancomycin in 0.9 % sodium chl 750 mg IV Q12H PRN 09/23/20 [History Last Taken Unknown] apixaban 5 mg PO BID #0 09/29/20 [Rx Last Taken 09/22/20] pantoprazole 40 mg PO BID tablet 09/29/20 [Rx Last Taken Unknown] tamsulosin 0.4 mg PO DAILY@1730 capsule 09/29/20 [Rx Last Taken Unknown] Allergy/AdvReac Type Severity Reaction Status Date / Time methotrexate AdvReac Hives,Rash, Verified 01/14/21 17:19 Lesions naproxen [From Naprosyn] AdvReac Upset Verified 01/14/21 17:19 Stomach BEE VENOM Allergy Anaphylaxis Uncoded 01/14/21 17:19 ROOT BEER Allergy Hives Uncoded 01/14/21 17:19 Surgical History facial reconstructive surgery H/O arthroscopic knee surgery H/O total hip arthroplasty History of appendectomy History of cholecystectomy History of left heart catheterization (06/12/19) Social History (Updated 01/14/21 @ 18:[address] Otoniel Alston MD) household members: none housing: apartment Smoking Status: Current every day smoker tobacco type: cigarettes alcohol intake: current alcohol intake frequency: other substance use type: crack/cocaine and other additional social history: Has not use cocaine in 5 years ROS ROS ED Constitutional Constitutional ED: Denies chills, fever(s), subjective or sweats ENT ENT ED: Denies ear pain, rhinorrhea or sore throat Cardiovascular Cardiovascular: Denies chest pain, palpitations or racing heartbeat Respiratory/Chest Respiratory/Chest: Reports cough; Denies dyspnea, dyspnea on exertion or sputum Gastrointestinal Gastrointestinal: Reports abdominal pain, constipation and nausea; Denies diarrhea, melena or vomiting Genitourinary Genitourinary ED: Denies dysuria, hematuria or urinary frequency Musculoskeletal Musculoskeletal: Denies arthralgias, myalgias or neck pain Neurologic Neurologic: Denies headache(s), paresthesias or weakness Psychiatric Psychiatric: Reports depression Hematologic/Lymphatic Hematologic/Lymphatic: Denies easy bleeding or easy bruising EXAM Physical Exam Const Vital Signs: 01/14/21 17:17 01/14/21 19:29 Temperature 97.8 F Temperature Source Temporal Pulse Rate 76 Respiratory Rate 16 17 Blood Pressure 127/83 H Blood Pressure Mean 97 Pulse Ox 99 Oxygen Delivery Method Room Air Room Air Positive well nourished and well developed General Appearance ED: well developed and other Patient appears uncomfortable HEENT Reports TM's clear and moist mucous membranes normocephalic and atraumatic Tympanic Membrane ED: Yes TM's clear Eyes PERRL and EOMs intact bilaterally General Eye ED: Negative for pale conjunctiva or scleral icterus Neck no lymphadenopathy, supple and no JVD Resp normal respiratory effort and clear to auscultation bilaterally Cardio regular rate, regular rhythm, S1 normal heart sound, S2 normal heart sound and no murmurs GI no masses Palpation: soft and tender other (Generalized); Negative for guarding or rigid Narrative: External genitalia normal. Back/Spine no CVA tenderness Thoracic Spine / Upper Back: Negative for thoracic spinal tenderness Lumbar Spine / Lower Back: Negative for lumbar spinal tenderness Extremity full ROM General Extremety ED: Negative for edema or tenderness General Extremity: Negative for edema Neuro CN's II-XII intact bilaterally and no sensory deficits noted Sensorium / Orientation: alert, oriented to person, oriented to place and oriented to time Motor Exam: strength 5/5 throughout Psych mental status grossly normal and thought process normal Mood & Affect: depressed Skin no wounds Lesions: no lesions Rashes: no rashes MDM MDM MDM Narrative Medical decision making narrative: Abdominal series was obtained to confirm suspicion for obstipation. Radiography Diagnostic Testing: Radiology Impression Acute Abdomen Series 01/14/21 17:48 IMPRESSION: Nonobstructive bowel gas pattern. Large amount of fecal retention. Subtle 1.6 cm round density in the right upper lobe. This could be due to overlapping rib shadows however cannot rule out pulmonary nodule. Consider lateral view radiograph. Osteonecrosis of the right hip. Electronically Signed: Odell Shelton MD at 18:28 EDT Tel , Service support , Chest X-Ray 01/14/21 19:00 IMPRESSION: Nodule is not well demonstrated on lateral. Recommend CT chest. Electronically Signed: Ta Mesa MD at 20:20 EDT , Service support , Abdominal series which included chest x-ray was unremarkable for acute pathology. Abdominal portion reveals significant fecal stasis with an ossific gas pattern. Since the radiologist concern there is a nodule lateral was obtained. There is still concern for nodule. Patient will need outpatient CAT scan. He is made aware of this. Will contact Dr. Wells to assure follow-up to evaluate this 1.5 cm right lung field nodule. Discharge Plan Triage Chief Complaint: Constipation ED Provider: Otoniel Alston Dx/Rx/DC Orders Clinical Impression: Obstipation, Solid nodule of lung greater than 8 mm in diameter Instructions: ED Constipation (Adult), ED Pulmonary Nodule, Solitary Prescriptions: No Action montelukast 10 MG tablet 10 mg PO QHS RF: 0 polyethylene glycol 3350 17 GM packet 17 gm PO DAILY RF: 0 methadone 10 MG tablet 5 mg PO TID RF: 0 sennosides-docusate sodium 1 EACH tablet 2 tablet PO QHS RF: 0 thiamine HCl (vitamin B1) 100 MG tablet 100 mg PO DAILY RF: 0 lithium carbonate 450 MG tablet extended release 450 mg PO QHS RF: 0 levothyroxine 150 MCG tablet 175 mcg PO DAILY RF: 0 nicotine 21 MG patch 21 mg TD QHS RF: 0 folic acid 1 MG tablet 1 mg PO DAILY RF: 0 ergocalciferol (vitamin D2) 50,000 UNIT capsule 50,000 unit PO FR RF: 0 multivitamin with minerals 1 EACH tablet 1 tablet PO DAILY RF: 0 olanzapine 5 MG tablet 5 mg PO TID RF: 0 finasteride 5 MG tablet 5 mg PO DAILY RF: 0 vancomycin in 0.9 % sodium chl 750 MG/150 ML solution 750 mg IV Q12H PRN RF: 0 meropenem-0.9% sodium chloride 1 GM/50 ML piggyback 1 gm IV TID RF: 0 dicyclomine 10 MG capsule 10 mg PO BID PRN (Reason: Diarrhea) RF: 0 Lactobacillus rhamnosus GG 1 EACH capsule, sprinkle 1 each PO BID RF: 0 tamsulosin 0.4 MG capsule 0.4 mg PO DAILY@1730 RF: 0 pantoprazole 40 MG tablet 40 mg PO BID RF: 0 apixaban 5 MG tablet 5 mg PO BID Qty: 0 RF: 0 Primary Care Provider: Vi Velásquez Referrals: Prasanna Wells DO [STAFF PHYSICIAN] - As soon as possible (1.5 cm solid right lung nodule needs work-up outpatient) Vi Velásquez MD [Primary Care Provider] - Activity Restrictions/Additional Instructions: 1. Drink 10 ounces of mag citrate in the morning upon awakening 2. 4 hours after drinking the mag citrate drink 1 glass of MiraLAX. Drink 1 glass of MiraLAX per hour until you have results 3. Contact Dr. Prasanna Wells's office tomorrow for outpatient follow-up and work- up of the 1.5 cm lung nodule Disposition Disposition: Home, Self Care
--- NOTE | 2021-01-14 19:00 | RAD_ITS ---
STUDY: X-RAY CHEST REASON FOR EXAM: Male, 55 years old. Nodule noted on abdominal series -- Only need lateral TECHNIQUE: 1 view lateral COMPARISON: None. FINDINGS: The lungs are clear and expanded. There is no demonstrated pleural abnormality. Normal size heart. Normal mediastinum and rima. Normal visualized pulmonary arteries. Normal visualized aortic arch and descending thoracic aorta. Normal visualized thoracic spine. Normal visualized ribs, clavicles, and shoulders. There is no demonstrated abnormality of the visualized soft tissue structures of the upper abdomen. RAD/Chest 1 View IMPRESSION: Nodule is not well demonstrated on lateral. Recommend CT chest. Electronically Signed: Ta Mesa MD at 20:20 EDT , Service support ,
[2021-01-14 19:29] VITALS: RESP 17
[2021-01-14 22:22] VITALS: RESP 16
== END 2021-01-14 22:23 | disposition home or self-care (01) ==
PROVIDERS: Emergency Provider Emergency Medicine; PCP Student in an Organized Health Care Education/Training Program
DX: K59.00 Constipation, unspecified (principal); R91.1 Solitary pulmonary nodule; I11.0 Hypertensive heart disease with heart failure; I50.22 Chronic systolic (congestive) heart failure; B18.2 Chronic viral hepatitis C; J44.9 Chronic obstructive pulmonary disease, unspecified; E03.9 Hypothyroidism, unspecified; M06.9 Rheumatoid arthritis, unspecified; F31.9 Bipolar disorder, unspecified; F11.10 Opioid abuse, uncomplicated; F15.10 Other stimulant abuse, uncomplicated; F17.210 Nicotine dependence, cigarettes, uncomplicated; Z79.01 Long term (current) use of anticoagulants; Z79.899 Other long term (current) drug therapy; I25.2 Old myocardial infarction; Z85.72 Personal history of non-Hodgkin lymphomas
CPT/HCPCS: 71045; 74022; 99282

== ENCOUNTER 2021-01-16 15:49 | Emergency (ER) | payer MEDICAID, SELFPAY ==
[2021-01-16 15:50] VITALS: BP 113/78; PULSE 80; RESP 15; TEMP 35.8; O2SAT 99; BMI 26.2
--- NOTE | 2021-01-16 18:41 | EDS_ITS ---
HPI History of Present Illness Chief Complaint: Diarrhea Informant: patient Narrative Narrative: 55-year-old male presents to the emergency department stating he is having incontinence of stool. He tells me that he is currently homeless and wheelchair-bound for multiple reasons but cannot tell me exactly why. He tells me that he is at the [facility] and they will not let him stay there anymore because he cannot tell if he is having a bowel movement or not. States that he was retaining urine in his bladder. He tells me that he is going to be on the streets if I do not admit him to a long term or the hospital. He was seen 2 days ago with constipation and states that he did not take any of the things he was told to do and now the stool is coming out. He states he will be willing to have a Domínguez catheter if it means he gets admitted to the hospital but if he does not need to be admitted that he does not want one. [facility] Medical History Acute ST elevation myocardial infarction (STEMI) of inferior wall (06/12/19) Acute systolic CHF (congestive heart failure) MALINDA (acute kidney injury) Amphetamine abuse Avascular necrosis of left femoral head Bacteremia Bipolar disorder Cholangitis COPD (chronic obstructive pulmonary disease) Encephalopathy Essential hypertension Hepatitis C, chronic History of non-ST elevation myocardial infarction (NSTEMI) (06/26/20) Hypothyroidism Intravenous drug abuse IVDU (intravenous drug user) NH lymphoma Nicotine dependence Non-Hodgkin lymphoma in remission Opiate abuse, continuous Rhabdomyolysis Rheumatoid arthritis Severe sepsis Takotsubo cardiomyopathy (06/2019) Home Medications montelukast 10 mg PO QHS 02/14/19 [History Last Taken 09/21/20] ergocalciferol (vitamin D2) 50,000 unit PO FR 08/29/20 [History Last Taken 09/19/20] folic acid 1 mg PO DAILY 08/29/20 [History Last Taken 09/22/20] levothyroxine 175 mcg PO DAILY 08/29/20 [History Last Taken 09/22/20] lithium carbonate 450 mg PO QHS 08/29/20 [History Last Taken 09/21/20] methadone 5 mg PO TID 08/29/20 [History Last Taken 09/22/20] multivitamin with minerals 1 tablet PO DAILY 08/29/20 [History Last Taken 09/22/20] nicotine 21 mg TD QHS 08/29/20 [History Last Taken 08/28/20] polyethylene glycol 3350 17 gm PO DAILY 08/29/20 [History Last Taken 08/29/20] sennosides-docusate sodium 2 tablet PO QHS 08/29/20 [History Last Taken 08/29/20] thiamine HCl (vitamin B1) 100 mg PO DAILY 08/29/20 [History Last Taken 09/22/20] Lactobacillus rhamnosus GG 1 each PO BID 09/23/20 [History Last Taken 09/22/20] dicyclomine 10 mg PO BID PRN 09/23/20 [History Last Taken Unknown] finasteride 5 mg PO DAILY 09/23/20 [History Last Taken 09/22/20] meropenem-0.9% sodium chloride 1 gm IV TID 09/23/20 [History Last Taken Unknown] olanzapine 5 mg PO TID 09/23/20 [History Last Taken 09/22/20] vancomycin in 0.9 % sodium chl 750 mg IV Q12H PRN 09/23/20 [History Last Taken U nknown] apixaban 5 mg PO BID #0 09/29/20 [Rx Last Taken 09/22/20] pantoprazole 40 mg PO BID tablet 09/29/20 [Rx Last Taken Unknown] tamsulosin 0.4 mg PO DAILY@1730 capsule 09/29/20 [Rx Last Taken Unknown] Allergy/AdvReac Type Severity Reaction Status Date / Time methotrexate AdvReac Hives,Rash, Verified 01/16/21 15:51 Lesions naproxen [From Naprosyn] AdvReac Upset Verified 01/16/21 15:51 Stomach BEE VENOM Allergy Anaphylaxis Uncoded 01/16/21 15:51 ROOT BEER Allergy Hives Uncoded 01/16/21 15:51 Surgical History facial reconstructive surgery H/O arthroscopic knee surgery H/O total hip arthroplasty History of appendectomy History of cholecystectomy History of left heart catheterization (06/12/19) Social History household members: none housing: apartment Smoking Status: Current every day smoker tobacco type: cigarettes alcohol intake: current alcohol intake frequency: other substance use type: crack/cocaine and other additional social history: Has not use cocaine in 5 years ROS ROS ED Constitutional Constitutional ED: Denies chills or weight loss Eyes Eyes: Denies change in vision or diplopia ENT ENT ED: Denies ear pain, rhinorrhea or sore throat Cardiovascular Cardiovascular: Denies chest pain, orthopnea, palpitations or racing heartbeat Respiratory/Chest Respiratory/Chest: Denies cough, dyspnea or orthopnea Gastrointestinal Gastrointestinal: Reports other Details: Fecal incontinence ; Denies abdominal pain, diarrhea, nausea or vomiting Genitourinary Genitourinary ED: Reports other Details: Urinary retention but if I push really hard it will come out. ; Denies dysuria, hematuria or urinary frequency Musculoskeletal Musculoskeletal: Denies arthralgias, back pain or myalgias Integumentary Denies abscess or rash Neurologic Neurologic: Denies headache(s) or weakness Psychiatric Psychiatric: Denies anxiety, depression, suicidal ideation or suicidal thoughts Endocrine Endocrinology: Denies polydipsia, polyphagia or polyuria Allergic/Immunologic Allergic/Immunologic ED: Denies mouth swelling, tongue swelling or urticaria EXAM Physical Exam Const Vital Signs: 01/16/21 15:50 Temperature 96.5 F L Temperature Source Temporal Pulse Rate 80 Respiratory Rate 15 Blood Pressure 113/78 Blood Pressure Mean 89 Pulse Ox 99 Oxygen Delivery Method Room Air Positive well nourished and well developed General Appearance ED: well developed HEENT Reports normocephalic, head/scalp atraumatic and moist mucous membranes Eyes PERRL and EOMs intact bilaterally Neck no lymphadenopathy, supple and no JVD Resp normal respiratory effort and clear to auscultation bilaterally Cardio regular rate, regular rhythm and no murmurs GI normal to inspection, nondistended, normoactive bowel sounds and non-tender Palpation: soft Rectal Exam: normal sphincter tone and other Other Details: Normal perineal sensation Narrative: No distended bladder felt Back/Spine no CVA tenderness and normal ROM Extremity normal to inspection General Extremety ED: Negative for edema General Extremity: Negative for edema Neuro oriented x3 and CN's II-XII intact bilaterally Sensorium / Orientation: alert Motor Exam: strength 5/5 throughout Psych mental status grossly normal Psych Narrative: Patient appears manipulative. Mood & Affect: tearful; Negative for depressed Skin no rashes or lesions noted and no wounds MDM MDM MDM Narrative Medical decision making narrative: Patient was advised that I do not see anythin g that requires a hospitalization. I also informed him that at 1800 hrs. on a Tuesday night with no acute issues going on it can be very difficult to get him placed into a long term. Patient then informs me that if I do not find him a place to stay he will need suicide watch. I informed him that I feel that he is being manipulative but unfortunately I am not able to locate housing for him on short notice from the emergency department. I had our case management speak with him. They are in agreement with me that the patient is malingering. The patient I believe has had something happen to him today possibly being asked to leave the [facility] where he is in crisis mode trying to figure out what he needs to do. I do not find any evidence of a emergent condition. I do not think he needs to be psychiatrically hospitalized because he comes up with multiple excuses and then once he reaches a and then states that he may claimed to be suicidal. But he does not actually make that claim. Discharge Plan Triage Chief Complaint: Diarrhea ED Provider: Baljit Hastings Dx/Rx/DC Orders Clinical Impression: Bipolar disorder Instructions: ED Bipolar Disorder Prescriptions: No Action montelukast 10 MG tablet 10 mg PO QHS RF: 0 polyethylene glycol 3350 17 GM packet 17 gm PO DAILY RF: 0 methadone 10 MG tablet 5 mg PO TID RF: 0 sennosides-docusate sodium 1 EACH tablet 2 tablet PO QHS RF: 0 thiamine HCl (vitamin B1) 100 MG tablet 100 mg PO DAILY RF: 0 lithium carbonate 450 MG tablet extended release 450 mg PO QHS RF: 0 levothyroxine 150 MCG tablet 175 mcg PO DAILY RF: 0 nicotine 21 MG patch 21 mg TD QHS RF: 0 folic acid 1 MG tablet 1 mg PO DAILY RF: 0 ergocalciferol (vitamin D2) 50,000 UNIT capsule 50,000 unit PO FR RF: 0 multivitamin with minerals 1 EACH tablet 1 tablet PO DAILY RF: 0 olanzapine 5 MG tablet 5 mg PO TID RF: 0 finasteride 5 MG tablet 5 mg PO DAILY RF: 0 vancomycin in 0.9 % sodium chl 750 MG/150 ML solution 750 mg IV Q12H PRN RF: 0 meropenem-0.9% sodium chloride 1 GM/50 ML piggyback 1 gm IV TID RF: 0 dicyclomine 10 MG capsule 10 mg PO BID PRN (Reason: Diarrhea) RF: 0 Lactobacillus rhamnosus GG 1 EACH capsule, sprinkle 1 each PO BID RF: 0 tamsulosin 0.4 MG capsule 0.4 mg PO DAILY@1730 RF: 0 pantoprazole 40 MG tablet 40 mg PO BID RF: 0 apixaban 5 MG tablet 5 mg PO BID Qty: 0 RF: 0 Primary Care Provider: Vi Velásquez Referrals: Vi Velásquez MD [Primary Care Provider] - As soon as possible Disposition Disposition: Home, Self Care
--- NOTE | 2021-01-16 22:38 | CM.ED ---
Addendum entered by Dalia Quiñonesder 01/16/21 22:51: Of note, SW noted that after speaking to this engineering writer patient was on his phone making arrangements to return to the [facility] and appeared to be returning from the restroom. (as he was in the wheelchair outside the restroom door coming down the madsen) Dalia Freeman MSW MAHI Original Note: YESSENIA Referral Source: MD Reason for Referral: Mental Health SW met briefly with patient. Patient said that he came to the hospital as I just need a doctor to fill out the paperwork so I can go back to [facility]. Patient talked about his medical issues including bowel incontinence and being homeless. Patient said that he talked to [facility] and they said just have the doctor fill the paperwork out and that he can be admitted. Ector said that he has a casemanager from [facility] named Bhanu and a wellness manager from [facility] named Ella. Patient said that he had called the MD off today and his MD was off until the . Patient said that he talked to Ella today and she told him to get back into [facility]. Patient said that he was at [facility] and had lived with a friend in [place] for one week and then his daughter for 2 days and then [place] put him up in a hotel for 5 days and then he was at the [facility]. Patient said that he can not go back to the [facility] as he is incontinent. Patient was again stating he needed [facility] and after repeatedly voicing he can't return to the [facility] and needs to be admitted for 3 days to the hospital and this engineering writer again statd there is no admitting diagnosis that patient hgas to qualify him for admission. Patient then referenced it could make a person suicidal. SW addressed this with patient as patient only stated this when this engineering writer had repeatedly denied that he could be admitted to hospital or [facility]. SW stated that it appears patient is now voicing vague SI in response to his frustration related to his homelessness and he voiced that was accurate. SW provided patient with homeless navigator number. Patient said that he will return to the [facility] and I am going to lie.. I don't like to but I am going to lie and tell me that the doctor gave me medicine. Patient appears to be malingering and is not consistent in his stories regarding his current status. It is this engineering writer's professional opinion that patient is malingering for secondary gain in relation to his current homeless status. Patient only indicated vague SI when he was unable to get admitted to the hospital for medical treatment and when confronted patient admitted it was in response to homeless situation. Patient needs to work with [facility] regarding placement, if appropriate. (However, patient has [employer] insurance which requires an precert). updated who agreed patient is malingering for secondary gain Plan: Discharge with resources Dalia RANDOLPH
== END 2021-01-16 20:09 | disposition home or self-care (01) ==
PROVIDERS: Emergency Provider Emergency Medicine; PCP Student in an Organized Health Care Education/Training Program
DX: F31.9 Bipolar disorder, unspecified (principal); Z76.5 Malingerer [conscious simulation]; R19.7 Diarrhea, unspecified; R33.9 Retention of urine, unspecified; R15.9 Full incontinence of feces; I11.0 Hypertensive heart disease with heart failure; I50.20 Unspecified systolic (congestive) heart failure; Z59.0 Homelessness; B18.2 Chronic viral hepatitis C; J44.9 Chronic obstructive pulmonary disease, unspecified; M06.9 Rheumatoid arthritis, unspecified; E03.9 Hypothyroidism, unspecified; F11.10 Opioid abuse, uncomplicated; F15.10 Other stimulant abuse, uncomplicated; F17.210 Nicotine dependence, cigarettes, uncomplicated; Z99.3 Dependence on wheelchair; Z79.01 Long term (current) use of anticoagulants; Z79.899 Other long term (current) drug therapy; I25.2 Old myocardial infarction; Z85.72 Personal history of non-Hodgkin lymphomas
CPT/HCPCS: 99282

== ENCOUNTER 2021-01-23 11:17 | Observation (INO) | payer MEDICAID, SELFPAY ==
[2021-01-23 11:18] VITALS: BP 120/77; PULSE 73; RESP 16; TEMP 36.8; O2SAT 100; BMI 22.4
--- NOTE | 2021-01-23 11:48 | EX.ED.DYSGE1 ---
HPI History of Present Illness Chief Complaint: Substance Abuse Informant: patient Narrative Narrative: Patient is a 55-year-old male who presents to the emergency department to detox from opioids. He states that he has been using daily over the past 9 months. He uses morphine, pills, methadone. The dosing varies per day. He last used this morning. Patient has been going through withdrawal symptoms with chills/shakes, nausea. He states that he has gone through detox program before in the past but it has been many years. He has chronic back and hip pain which spurred him to start taking the pills again after a surgery at [facility]. Patient denies any other drug abuse. He socially drinks. He does smoke cigarettes. Patient otherwise has complained of a mild cough and he feels like he has a sinus infection. He denies any fevers or chills. He has been vaccinated for Covid. [facility] Medical History Acute ST elevation myocardial infarction (STEMI) of inferior wall (06/12/19) Acute systolic CHF (congestive heart failure) MALINDA (acute kidney injury) Amphetamine abuse Avascular necrosis of left femoral head Bacteremia Bipolar disorder Cholangitis COPD (chronic obstructive pulmonary disease) Encephalopathy Essential hypertension Hepatitis C, chronic History of non-ST elevation myocardial infarction (NSTEMI) (06/26/20) Hypothyroidism Intravenous drug abuse IVDU (intravenous drug user) NH lymphoma Nicotine dependence Non-Hodgkin lymphoma in remission Opiate abuse, continuous Rhabdomyolysis Rheumatoid arthritis Severe sepsis Takotsubo cardiomyopathy (06/2019) Home Medications montelukast 10 mg PO QHS 02/14/19 [History Last Taken 09/21/20] ergocalciferol (vitamin D2) 50,000 unit PO FR 08/29/20 [History Last Taken 09/19/20] folic acid 1 mg PO DAILY 08/29/20 [History Last Taken 09/22/20] levothyroxine 175 mcg PO DAILY 08/29/20 [History Last Taken 09/22/20] lithium carbonate 450 mg PO QHS 08/29/20 [History Last Taken 09/21/20] methadone 10 mg PO BID 08/29/20 [History Last Taken 09/22/20] multivitamin with minerals 1 tablet PO DAILY 08/29/20 [History Last Taken 09/22/20] thiamine HCl (vitamin B1) 100 mg PO DAILY 08/29/20 [History Last Taken 09/22/20] meropenem-0.9% sodium chloride 1 gm IV TID 09/23/20 [History Last Taken Unknown] olanzapine 5 mg PO TID 09/23/20 [History Last Taken 09/22/20] apixaban 5 mg PO BID #0 09/29/20 [Rx Last Taken 09/22/20] tamsulosin 0.4 mg PO DAILY@1730 capsule 09/29/20 [Rx Last Taken Unknown] docusate sodium [Colace] 100 mg PO DAILY PRN 01/23/21 [History Last Taken Unknown] fludrocortisone 0.1 mg PO DAILY 01/23/21 [History Last Taken Unknown] gabapentin 300 mg PO TID 01/23/21 [History Last Taken Unknown] metoprolol tartrate 12.5 mg PO DAILY 01/23/21 [History Last Taken Unknown] nystatin 1 unit 01/23/21 [History Last Taken Unknown] Allergy/AdvReac Type Severity Reaction Status Date / Time methotrexate AdvReac Hives,Rash, Verified 01/23/21 11:20 Lesions naproxen [From Naprosyn] AdvReac Upset Verified 01/23/21 11:20 Stomach BEE VENOM Allergy Anaphylaxis Uncoded 01/23/21 11:20 ROOT BEER Allergy Hives Uncoded 01/23/21 11:20 Surgical History facial reconstructive surgery H/O arthroscopic knee surgery H/O total hip arthroplasty History of appendectomy History of cholecystectomy History of left heart catheterization (06/12/19) Social History household members: none housing: apartment Smoking Status: Current every day smoker tobacco type: cigarettes alcohol intake: current alcohol intake frequency: other substance use type: crack/cocaine and other additional social history: Has not use cocaine in 5 years ROS ROS ED Constitutional Constitutional ED: Reports chills; Denies fever(s) Eyes Eyes: Denies change in vision ENT ENT ED: Denies epistaxis or rhinorrhea Cardiovascular Cardiovascular: Denies chest pain or palpitations Respiratory/Chest Respiratory/Chest: Reports cough; Denies dyspnea Gastrointestinal Gastrointestinal: Reports nausea; Denies abdominal pain, diarrhea or vomiting Genitourinary Genitourinary ED: Denies dysuria, hematuria or urinary frequency Musculoskeletal Musculoskeletal: Denies back pain or neck pain Integumentary Denies rash Neurologic Neurologic: Denies dizziness, headache(s) or weakness EXAM Physical Exam Const Vital Signs: 01/23/21 11:18 Temperature 98.2 F Temperature Source Temporal Pulse Rate 73 Respiratory Rate 16 Blood Pressure 120/77 Blood Pressure Mean 91 Pulse Ox 100 Oxygen Delivery Method Room Air Positive well nourished and well developed General Appearance ED: well developed and NAD HEENT Reports normocephalic, head/scalp atraumatic and moist mucous membranes Eyes PERRL and EOMs intact bilaterally Neck supple Chest Wall inspection of chest normal Resp normal respiratory effort and clear to auscultation bilaterally Auscultation: Negative for rales, rhonchi or wheezes Cardio regular rate, regular rhythm and no murmurs GI normal to inspection, nondistended, normoactive bowel sounds and non-tender Palpation: soft; Negative for guarding or rebound tenderness present Extremity normal to inspection General Extremety ED: Negative for edema or tenderness General Extremity: Negative for edema Neuro Sensorium / Orientation: alert Motor Exam: strength 5/5 throughout Psych mental status grossly normal Skin no rashes or lesions noted MDM MDM MDM Narrative Medical decision making narrative: Patient presents to the ED to detox off of opiate medications. On arrival to the emergency department vital signs within normal limits. He is benign physical exam. Will check medical screening labs. With a history of a cough will check a Covid screen. Covid test was negative. Lab work-up did not reveal any significant acute abnormality. He is positive for opiates as well as cannabinoids. Alcohol level is negative. At this time will bring into the hospital for further evaluation and management. He understands and is agreeable with this plan. Lab Data Labs: Laboratory Results - last 24 hr 01/23/21 01/23/21 01/23/21 12:30 12:30 12:30 WBC 10.8 RBC 5.73 Hgb 14.9 Hct 47.8 MCV 83.4 MCH 26.0 L MCHC 31.2 L RDW Std Deviation 46.7 H RDW Coeff of Re 15.4 H Plt Count 405 MPV 8.2 Immature Gran % (Auto) 0.300 Neut % (Auto) 70.6 H Lymph % (Auto) 24.3 Jewell % (Auto) 3.3 Eos % (Auto) 0.9 Baso % (Auto) 0.6 Absolute Neuts (auto) 7.6 Absolute Lymphs (auto) 2.62 Nucleated RBC % 0 Sodium 135 L Potassium 3.8 Chloride 106 Carbon Dioxide 24.0 Anion Gap 5 BUN 11 Creatinine 1.00 Estim Creat Clear Calc 77.09 Est GFR (MDRD) Af Amer 100 Est GFR (MDRD) Non-Af 83 BUN/Creatinine Ratio 11.0 Glucose 96 Calcium 8.8 Total Bilirubin 0.40 AST 15 ALT 17 Alkaline Phosphatase 145 H Total Protein 8.0 Albumin 3.6 Globulin 4.4 H Albumin/Globulin Ratio 0.8 L Urine Opiates Screen Urine Methadone Screen Ur Barbiturates Screen Ur Phencyclidine Scrn Ur Amphetamines Screen U Methamphetamin-MDMA U Benzodiazepines Scrn Urine Cocaine Screen U Cannabinoids Screen Ur Drug Screen Comment Ethyl Alcohol 9.0 01/23/21 13:30 WBC RBC Hgb Hct MCV MCH MCHC RDW Std Deviation RDW Coeff of Re Plt Count MPV Immature Gran % (Auto) Neut % (Auto) Lymph % (Auto) Jewell % (Auto) Eos % (Auto) Baso % (Auto) Absolute Neuts (auto) Absolute Lymphs (auto) Nucleated RBC % Sodium Potassium Chloride Carbon Dioxide Anion Gap BUN Creatinine Estim Creat Clear Calc Est GFR (MDRD) Af Amer Est GFR (MDRD) Non-Af BUN/Creatinine Ratio Glucose Calcium Total Bilirubin AST ALT Alkaline Phosphatase Total Protein Albumin Globulin Albumin/Globulin Ratio Urine Opiates Screen POSITIVE H Urine Methadone Screen NEGATIVE Ur Barbiturates Screen NEGATIVE Ur Phencyclidine Scrn NEGATIVE Ur Amphetamines Screen NEGATIVE U Methamphetamin-MDMA NEGATIVE U Benzodiazepines Scrn NEGATIVE Urine Cocaine Screen NEGATIVE U Cannabinoids Screen POSITIVE H Ur Drug Screen Comment Ethyl Alcohol Discharge Plan Dx/Rx/DC Orders Clinical Impression: Opiate abuse, continuous Disposition Disposition: Acute Care Hospital [facility]
[2021-01-23 12:43] LABS: Absolute Lymphocyte Count 2.62 X10^3/uL (0.83-4.51); Absolute Neutrophil Count 7.6 X10^3/uL (2.0-7.7); Basophil# 0.06 X10^3/uL; Basophil% 0.6 % (0-1); Eosinophils% 0.9 % (0-5); Hematocrit 47.8 % (40-54); Hemoglobin 14.9 g/dL (13.0-16.5); Lymphocyte # 2.62 X10^3/ul (0.83-4.51); Lymphocyte % 24.3 % (19-41); Mean Corp Hgb Conc 31.2 g/dL (32-36); Mean Corpuscular Volume 83.4 fL (80-94); Mean Platelet Vol. 8.2 fl (6.2-12.0); Monocyte# 0.36 X10^3/uL; Monocyte% 3.3 % (0-10); NRBC Flagged by Analyzer 0 % (0-5); Neutrophil # 7.62 X10^3/uL (2.7-7.7); Neutrophil % 70.6 % (47-70); Platelet Count 405 K/mm3 (150-450); RBC Distribution Width CV 15.4 % (11.6-14.6); RBC Distribution Width SD 46.7 fl (35.1-43.9); Red Blood Count 5.73 M/mm3 (4.6-6.2); White Blood Count 10.8 K/mm3 (4.4-11.0)
[2021-01-23 12:58] LABS: ALB/GLOB Ratio 0.8 RATIO (0.9-2.4); AST(SGOT) 15 U/L (15-37); Alanine Aminotransfer ALT/SGPT 17 U/L (16-61); Albumin, Serum 3.6 g/dL (3.2-5.0); Alkaline Phosphatase 145 U/L (45-117); Anion Gap 5 (5-15); BUN 11 mg/dL (7-18); Calcium,Total 8.8 mg/dL (8.5-10.1); Chloride 106 mmol/L (98-107); EST Glomerular Filtration Rate 83 mL/min (>60); Est Glom Filt Rate - Afr Amer 100 mL/min (>60); Estimated Creatinine Clearance 77.09 ml/min; Globulin 4.4 g/dL (2.2-4.2); Glucose 96 mg/dL (74-106); Potassium 3.8 mmol/L (3.5-5.1); Sodium Level 135 mmol/L (136-145)
[2021-01-23 13:56] LABS: Amphetamine Urine VISTA NEGATIVE (<1000 ng/mL); Barbiturate Urine VISTA NEGATIVE (< 200 ng/mL); Benzodiazepine Urine VISTA NEGATIVE (< 200 ng/mL); Cocaine Urine VISTA NEGATIVE (< 300 ng/mL); Ecstacy Urine VISTA NEGATIVE (< 500 ng/mL); Methadone Urine VISTA NEGATIVE (< 300 ng/mL); PCP Urine VISTA NEGATIVE (< 25 ng/mL); THC Urine VISTA POSITIVE (< 50 ng/mL); Vista UDS pH Range 7
--- NOTE | 2021-01-23 13:58 | NURSING ---
MED SURG KORAM OPIATE DETOX
--- NOTE | 2021-01-23 14:00 | CM.ED ---
SOCIAL WORK Referral Source: Nurse[facility]ali Reason for Consult: Substance Abuse Met with patient in room. Introduced role and reason for referral. Patient wanting detox from opiates. Patient tearful stating would benefit from [facility] as he has had trouble in the past with getting help due to my disabilities. Patient from the [facility] and has been connected with [facility] in the past. Education provided on [facility]. Addiction therapistAnna notified of admission. Plan: Admit to [facility] Hernán. Maurice, ATTENDANCE OFFICER, HOME SUPPORT WORKER
--- NOTE | 2021-01-23 14:16 | HP.PCM.HOS_ITS ---
HPI - General General Date of Admission: 01/23/21 HPI Narrative VITA MAYORGA, is a 55 M with an extensive PMH as outlined who was admitted via the ED on 01/23/2021 for acute alcohol detox. HE was admitted with a complaint of tremors and abdominal cramps as well as increased sweating. Patient says he uses pain pills such as percocet and methadone, and his last use was on the morning of admission. He had used pain pills for about 9 months but then he said he had back and hip pain which made him start using the pills again after he had surgery. He also drinks alcohol but states mainly on the weekends and also smokes about 2 packs daily. Review of systems otherwise negative. Vitals were blood pressure 112/76, pulse rate of 66, respiratory rate of 18 temperature of 98 Fahrenheit. He was saturating 100% on room air. He has been admitted to be managed for acute opiate withdrawal. CBC showed WBC of 10.8 with hemoglobin of 14.9 and platelets of 405. Urine tox was positive for opiates. [facility] Medical History Acute ST elevation myocardial infarction (STEMI) of inferior wall (06/12/19) Acute systolic CHF (congestive heart failure) MALINDA (acute kidney injury) Amphetamine abuse Avascular necrosis of left femoral head Bacteremia Bipolar disorder Cholangitis COPD (chronic obstructive pulmonary disease) Encephalopathy Essential hypertension Hepatitis C, chronic History of non-ST elevation myocardial infarction (NSTEMI) (06/26/20) Hypothyroidism Intravenous drug abuse IVDU (intravenous drug user) NH lymphoma Nicotine dependence Non-Hodgkin lymphoma in remission Opiate abuse, continuous Rhabdomyolysis Rheumatoid arthritis Severe sepsis Takotsubo cardiomyopathy (06/2019) Home Medications montelukast 10 mg PO QHS 02/14/19 [History Last Taken 09/21/20] ergocalciferol (vitamin D2) 50,000 unit PO FR 08/29/20 [History Last Taken 09/19/20] folic acid 1 mg PO DAILY 08/29/20 [History Last Taken 09/22/20] levothyroxine 175 mcg PO DAILY 08/29/20 [History Last Taken 09/22/20] lithium carbonate 450 mg PO QHS 08/29/20 [History Last Taken 09/21/20] methadone 10 mg PO BID 08/29/20 [History Last Taken 09/22/20] multivitamin with minerals 1 tablet PO DAILY 08/29/20 [History Last Taken 09/22/20] thiamine HCl (vitamin B1) 100 mg PO DAILY 08/29/20 [History Last Taken 09/22/20] meropenem-0.9% sodium chloride 1 gm IV TID 09/23/20 [History Last Taken Unknown] olanzapine 5 mg PO TID 09/23/20 [History Last Taken 09/22/20] tamsulosin 0.4 mg PO DAILY@1730 capsule 09/29/20 [Rx Last Taken Unknown] docusate sodium [Colace] 100 mg PO DAILY PRN 01/23/21 [History Last Taken Unknown] fludrocortisone 0.1 mg PO DAILY 01/23/21 [History Last Taken Unknown] gabapentin 300 mg PO TID 01/23/21 [History Last Taken Unknown] metoprolol tartrate 12.5 mg PO DAILY 01/23/21 [History Last Taken Unknown] nystatin 1 unit 01/23/21 [History Last Taken Unknown] Allergy/AdvReac Type Severity Reaction Status Date / Time methotrexate AdvReac Hives,Rash, Verified 01/23/21 11:20 Lesions naproxen [From Naprosyn] AdvReac Upset Verified 01/23/21 11:20 Stomach BEE VENOM Allergy Anaphylaxis Uncoded 01/23/21 11:20 ROOT BEER Allergy Hives Uncoded 01/23/21 11:20 Surgical History facial reconstructive surgery H/O arthroscopic knee surgery H/O total hip arthroplasty History of appendectomy History of cholecystectomy History of left heart catheterization (06/12/19) Social History household members: none housing: apartment Smoking Status: Current every day smoker tobacco type: cigarettes alcohol intake: current alcohol intake frequency: other substance use type: crack/cocaine and other additional social history: Has not use cocaine in 5 years ROS Constitutional Constitutional: Denies anorexia, chills, fever(s), malaise or weakness Eyes Eyes: Reports change in vision ENT HEENT: Denies ear pain, headache(s), hearing loss or nasal congestion Cardiovascular Cardiovascular: Denies chest pain, dyspnea on exertion, edema, lightheadedness, orthopnea, palpitations, rapid heart rate or syncope Respiratory/Chest Respiratory/Chest: Denies cough, dyspnea, shortness of breath at rest or shortness of breath with exertion Gastrointestinal Gastrointestinal: Reports hematochezia; Denies abdominal pain, constipation, diarrhea, nausea or vomiting Genitourinary Genitourinary: Denies burning urination, dysuria or urinary frequency Neurologic Neurologic: Denies confusion, dizziness or focal weakness Psychiatric Psychiatric: Reports anxiety; Denies depression Vital Signs Vital Signs Vital Signs: 01/23/21 11:18 Temperature 98.2 F Temperature Source Temporal Pulse Rate 73 Respiratory Rate 16 Blood Pressure 120/77 Blood Pressure Mean 91 Pulse Ox 100 Oxygen Delivery Method Room Air Weight Weight: 141 lb 4.8 oz Body Mass Index (BMI) 22.4 Physical Exam Const alert and oriented x3 General Appearance: cooperative HEENT normocephalic, head/scalp atraumatic, hearing grossly normal bilaterally and moist oral mucous membranes Eyes PERRL, EOMs intact bilaterally and conjunctivae normal Neck no lymphadenopathy, supple and no JVD Resp normal respiratory effort, no retractions, no use of accessory muscles and clear to auscultation bilaterally Cardio regular rate, regular rhythm, S1 normal heart sound, S2 normal heart sound and no murmurs GI normal to inspection, nondistended, normoactive bowel sounds, soft to palpation, non-tender and non-distended Extremity normal to inspection, full ROM and no clubbing, cyanosis or edema Peripheral Pulses: Yes pulses 2+ throughout Skin no rashes or lesions noted Neuro oriented x3, CN's II-XII intact bilaterally and moves all extremities Sensorium / Orientation: alert Psych Psych Narrative: patient very tearful Results Lab / Micro Data Result Diagrams: 01/23/21 12:30 01/23/21 12:30 Labs: Laboratory Results - last 24 hr 01/23/21 12:30: WBC 10.8, RBC 5.73, Hgb 14.9, Hct 47.8, MCV 83.4, MCH 26.0 L, MCHC 31.2 L, RDW Std Deviation 46.7 H, RDW Coeff of Re 15.4 H, Plt Count 405, MPV 8.2, Immature Gran % (Auto) 0.300, Neut % (Auto) 70.6 H, Lymph % (Auto) 24.3, [place] % (Auto) 3.3, Eos % (Auto) 0.9, Baso % (Auto) 0.6, Absolute Neuts (auto) 7.6, Absolute Lymphs (auto) 2.62, Nucleated RBC % 0 01/23/21 12:30: Sodium 135 L, Potassium 3.8, Chloride 106, Carbon Dioxide 24.0, Anion Gap 5, BUN 11, Creatinine 1.00, Estim Creat Clear Calc 77.09, Est GFR (MDRD) Af Amer 100, Est GFR (MDRD) Non-Af 83, BUN/Creatinine Ratio 11.0, Glucose 96, Calcium 8.8, Total Bilirubin 0.40, AST 15, ALT 17, Alkaline Phosphatase 145 H, Total Protein 8.0, Albumin 3.6, Globulin 4.4 H, Albumin/Globulin Ratio 0.8 L 01/23/21 12:30: Ethyl Alcohol 9.0 01/23/21 13:30: Urine Opiates Screen POSITIVE H, Urine Methadone Screen NEGATIVE, Ur Barbiturates Screen NEGATIVE, Ur Phencyclidine Scrn NEGATIVE, Ur Amphetamines Screen NEGATIVE, U Methamphetamin-MDMA NEGATIVE, U Benzodiazepines Scrn NEGATIVE, Urine Cocaine Screen NEGATIVE, U Cannabinoids Screen POSITIVE H, Ur Drug Screen Comment Micro: Microbiology 01/23/21 11:50 Mucosa - Nose SARS-CoV-2 Antigen (Rapid) - Final Assessment & Plan Assessment/Plan (1) Opioid withdrawal: PLAN: #Acute opioid withdrawal * admit to med surg * start on opiate withdrawal protocol with buprenorphine * Monitor COWS score * adjunctive meds for symptomatic relief * #History of bipolar disorder: On lithium. #Hypothyroidism: On Synthroid #BPH: On Flomax #Hypertension: On metoprolol #History of Takotsubo cardiomyopathy:on metoprolol #History of DVT: * He does have a history of acute blood loss anemia due to upper GI bleed from gastritis. * Says he no longer takes eliquis #History of GERD: On PPI. DVT prophylaxis: on eliquis Charges/Coding Visit Charges Inpatient E&M: 27257 Init Hosp L3
[2021-01-23 14:45] VITALS: BP 122/84; PULSE 101; RESP 20; TEMP 36.7; O2SAT 98
[2021-01-23 15:20] VITALS: BMI 22.4
[2021-01-23 16:07] VITALS: BP 112/76; PULSE 66; RESP 18; TEMP 36.7; O2SAT 100
[2021-01-23] MEDS: Loperamide 2 MG Capsule PO (17:50)
[2021-01-23] MEDS: Tamsulosin HCl 0.4 MG Capsule PO (17:51)
[2021-01-23] MEDS: Dicyclomine 10 MG Capsule 20 MG PO (17:55)
[2021-01-23 22:00] VITALS: BP 92/69; PULSE 66; RESP 18; TEMP 36.4; O2SAT 95
[2021-01-23] MEDS: OLANZapine 2.5 MG Tablet 5 MG PO (22:10)
[2021-01-23] MEDS: Gabapentin 300 MG Capsule PO (22:11)
[2021-01-23] MEDS: Montelukast 10 MG Tablet PO (22:11)
[2021-01-23] MEDS: hydrOXYzine PAM 25 MG Capsule 50 MG PO (22:11)
[2021-01-23] MEDS: Ergocalciferol 1.25 MG (50, 000 UNIT) Capsule PO (22:11)
[2021-01-24] VITALS (9 sets, daily range): BP systolic 95–116; BP diastolic 68–82; PULSE 65–90; RESP 18–20; TEMP 36.2–37; O2SAT 95–100
[2021-01-24] MEDS: Methocarbamol 750 MG Tablet 1500 MG PO ×4 (00:28→22:43)
[2021-01-24] MEDS: Dicyclomine 10 MG Capsule 20 MG PO ×3 (00:28→20:19)
[2021-01-24] MEDS: traZODone 100 MG Tablet PO ×2 (00:28→22:43)
[2021-01-24] MEDS: Buprenorphine HCl 2 MG TAB.SUBL SL ×3 (03:41→20:20)
[2021-01-24] MEDS: Gabapentin 300 MG Capsule PO ×3 (06:29→22:43)
[2021-01-24] MEDS: OLANZapine 2.5 MG Tablet 5 MG PO ×3 (06:29→22:43)
[2021-01-24] MEDS: Levothyroxine 175 MCG Tablet PO (06:29)
[2021-01-24] MEDS: hydrOXYzine PAM 25 MG Capsule 50 MG PO ×2 (06:30→18:01)
[2021-01-24 07:15] LABS: Absolute Neutrophil Count 6.6 X10^3/uL (2.0-7.7); Basophil# 0.06 X10^3/uL; Basophil% 0.5 % (0-1); Eosinophils% 3.6 % (0-5); Hematocrit 48.3 % (40-54); Hemoglobin 14.2 g/dL (13.0-16.5); Lymphocyte % 30.5 % (19-41); Mean Corp Hgb Conc 29.4 g/dL (32-36); Mean Corpuscular Hgb 25.7 pg (27.0-32.0); Mean Corpuscular Volume 87.5 fL (80-94); Mean Platelet Vol. 8.5 fl (6.2-12.0); Monocyte# 0.63 X10^3/uL; Monocyte% 5.7 % (0-10); NRBC Flagged by Analyzer 0 % (0-5); Neutrophil # 6.61 X10^3/uL (2.7-7.7); Neutrophil % 59.3 % (47-70); Platelet Count 378 K/mm3 (150-450); RBC Distribution Width CV 15.6 % (11.6-14.6); RBC Distribution Width SD 50.2 fl (35.1-43.9); Red Blood Count 5.52 M/mm3 (4.6-6.2); White Blood Count 11.1 K/mm3 (4.4-11.0)
[2021-01-24 07:32] LABS: Anion Gap 5 (5-15); BUN 13 mg/dL (7-18); BUN/Creat Ratio 14.8 RATIO (10-20); Calcium,Total 8.5 mg/dL (8.5-10.1); Chloride 110 mmol/L (98-107); Creatinine, Serum 0.88 mg/dL (0.70-1.30); EST Glomerular Filtration Rate 96 mL/min (>60); Est Glom Filt Rate - Afr Amer 117 mL/min (>60); Glucose 96 mg/dL (74-106); Potassium 3.8 mmol/L (3.5-5.1); Sodium Level 138 mmol/L (136-145)
[2021-01-24] MEDS: Thiamine Hydrochloride 100 MG Tablet PO (09:32)
[2021-01-24] MEDS: Multivitamins,Ther W-Minerals Tablet 1 TABLET PO (09:32)
[2021-01-24] MEDS: Folic Acid 1 MG Tablet PO (09:32)
[2021-01-24] MEDS: Fludrocortisone Acetate 0.1 MG Tablet PO (09:32)
[2021-01-24] MEDS: Metoprolol Tartrate 25 MG Tablet 12.5 MG PO (09:33)
--- NOTE | 2021-01-24 10:55 | PCM.PN.HOSP ---
Subjective Subjective Patient reports he is fairly symptomatic today. He is complaining of muscle spasms in his legs. He indicates that he has been banned from [facility] but is interested in being placed because he is unable to care for himself. Objective Data Objective Data Vital Signs: Vital Signs Temp Pulse Resp BP Pulse Ox 98.6 F 90 18 99/82 H 95 01/24/21 09:16 01/24/21 09:33 01/24/21 09:16 01/24/21 09:16 01/24/21 09:16 Oxygen Flow Rate (L/min) 2 Oxygen Delivery Method Room Air Weight: 65.091 kg Body Mass Index (BMI) 22.4 Intake & Output: Intake and Output for Last 24 Hours 01/22/21 01/23/21 01/24/21 23:59 23:59 23:59 Intake Total 700 / 700 400 / 400 Balance 700 / 700 400 / 400 Lab / Micro Data Result Diagrams: 01/24/21 06:45 01/24/21 06:45 Labs: Laboratory Results - last 24 hr 01/23/21 12:30: WBC 10.8, RBC 5.73, Hgb 14.9, Hct 47.8, MCV 83.4, MCH 26.0 L, MCHC 31.2 L, RDW Std Deviation 46.7 H, RDW Coeff of Re 15.4 H, Plt Count 405, MPV 8.2, Immature Gran % (Auto) 0.300, Neut % (Auto) 70.6 H, Lymph % (Auto) 24.3, Allen % (Auto) 3.3, Eos % (Auto) 0.9, Baso % (Auto) 0.6, Absolute Neuts (auto) 7.6, Absolute Lymphs (auto) 2.62, Nucleated RBC % 0 01/23/21 12:30: Sodium 135 L, Potassium 3.8, Chloride 106, Carbon Dioxide 24.0, Anion Gap 5, BUN 11, Creatinine 1.00, Estim Creat Clear Calc 77.09, Est GFR (MDRD) Af Amer 100, Est GFR (MDRD) Non-Af 83, BUN/Creatinine Ratio 11.0, Glucose 96, Calcium 8.8, Total Bilirubin 0.40, AST 15, ALT 17, Alkaline Phosphatase 145 H, Total Protein 8.0, Albumin 3.6, Globulin 4.4 H, Albumin/Globulin Ratio 0.8 L 01/23/21 12:30: Ethyl Alcohol 9.0 01/23/21 13:30: Urine Opiates Screen POSITIVE H, Urine Methadone Screen NEGATIVE, Ur Barbiturates Screen NEGATIVE, Ur Phencyclidine Scrn NEGATIVE, Ur Amphetamines Screen NEGATIVE, U Methamphetamin-MDMA NEGATIVE, U Benzodiazepines Scrn NEGATIVE, Urine Cocaine Screen NEGATIVE, U Cannabinoids Screen POSITIVE H, Ur Drug Screen Comment 01/24/21 06:45: WBC 11.1 H, RBC 5.52, Hgb 14.2, Hct 48.3, MCV 87.5, MCH 25.7 L, MCHC 29.4 L D, RDW Std Deviation 50.2 H, RDW Coeff of Re 15.6 H, Plt Count 378, MPV 8.5, Immature Gran % (Auto) 0.400, Neut % (Auto) 59.3, Lymph % (Auto) 30.5, Allen % (Auto) 5.7, Eos % (Auto) 3.6, Baso % (Auto) 0.5, Absolute Neuts (auto) 6.6, Absolute Lymphs (auto) 3.40, Nucleated RBC % 0 01/24/21 06:45: Sodium 138, Potassium 3.8, Chloride 110 H, Carbon Dioxide 23.0, Anion Gap 5, BUN 13, Creatinine 0.88, Estim Creat Clear Calc 87.60, Est GFR (MDRD) Af Amer 117, Est GFR (MDRD) Non-Af 96, BUN/Creatinine Ratio 14.8, Glucose 96, Calcium 8.5 Micro: Microbiology 01/23/21 11:50 Mucosa - Nose SARS-CoV-2 Antigen (Rapid) - Final Physical Exam Const alert, oriented x3 and no apparent distress Constitutional Narrative: White male who appears much older than stated age lying in bed, appears comfortable, nontoxic, intermittent leg jerking bilaterally Exam Limitations: no limitations HEENT head/scalp atraumatic Head and Scalp: normocephalic Resp normal respiratory effort, no retractions, no use of accessory muscles and clear to auscultation bilaterally Cardio regular rate, regular rhythm, S1 normal heart sound, S2 normal heart sound, no murmurs, no rub, no gallops, no clicks and no JVD GI normal to inspection, nondistended, normoactive bowel sounds, soft to palpation, non-tender and non-distended Extremity no clubbing, cyanosis or edema Peripheral Pulses: Yes pulses 2+ throughout Neuro oriented x3 Sensorium / Orientation: awake, alert, oriented to person, oriented to place and oriented to time Assessment & Plan Assessment/Plan (1) Opioid withdrawal: (2) Bipolar disorder: PLAN: Acute opiate withdrawal -Symptoms appear to be in better control than in the emergency department per documentation -He has been using pain pills such as Percocet and methadone with regards to his abuse -Continue buprenorphine taper -Continue supportive medications -180 consult is for evaluation and discharge plan Chronic hepatitis C -History of IV drug use -Chronic stable -Recommend outpatient follow-up History of bipolar disorder -Continue home medications including lithium Hypothyroidism -Continue Synthroid BPH -Continue Flomax Hypertension -Continue metoprolol Vitamin D deficiency -Continue ergocalciferol at discharge -patient takes every Tuesday History of Takotsubo cardiomyopathy -Continue beta-consuelo -Last echo was June 2020 and shows a normal EF at 60% and no regional wall motion abnormalities History of non-Hodgkin's lymphoma -In remission History of RA -Patient is not on any current DMARDs COPD/tobacco abuse -Recommend cessation -Continue patch as needed -As needed nebulizers History of DVT -Patient has history of acute blood loss anemia secondary to upper GI bleed from gastritis -Patient is no longer on Eliquis -We will treat with prophylaxis History of GERD -Continue PPI DVT prophylaxis -Patient is off Eliquis secondary to GI bleed -Start Lovenox therapeutic dosing 40 mg daily Charges/Coding Visit Charges Inpatient E&M: 49633 Subs Hosp L2
[2021-01-24] MEDS: Enoxaparin 40 MG/0.4 ML Syringe SC (11:47)
[2021-01-24] MEDS: cloNIDine HCl 0.1 MG Tablet PO (13:44)
--- NOTE | 2021-01-24 14:43 | ADDICTION ---
This typewriter tester met with PT to conduct ASAM, MSE, AUDIT assessments and to plan for d/c. PT A+Ox4 and participated actively. All assessments completed, faxed to [facility] and placed in PT's chart. PT plans to f/u with individual counselor at [facility] for follow-up counseling services once he is discharged from the fdc facility.
--- NOTE | 2021-01-24 16:31 | CM.ED ---
SW Note Referral Source: MS3 SW Referral Reason: SNF Placement SW met with patient. He was provided list of SNF in [facility] that are in network with his insurance. Patient said that he can not return to [facility]. His first choice is [facility] and second choice [facility]. SW will continue to follow as needed. Plan: SNF at discharge [facility]
[2021-01-24] MEDS: Tamsulosin HCl 0.4 MG Capsule PO (17:48)
[2021-01-24] MEDS: Docusate Sodium 100 MG Capsule PO (18:03)
[2021-01-24] MEDS: Lithium Carbonate 150 MG Capsule 450 MG PO (22:43)
[2021-01-24] MEDS: Montelukast 10 MG Tablet PO (22:43)
[2021-01-25 04:42] VITALS: BP 108/76; PULSE 96; RESP 18; TEMP 36.5; O2SAT 97
[2021-01-25] MEDS: Buprenorphine HCl 2 MG TAB.SUBL SL ×3 (04:42→19:50)
[2021-01-25] MEDS: Methocarbamol 750 MG Tablet 1500 MG PO ×2 (04:47→15:42)
[2021-01-25] MEDS: hydrOXYzine PAM 25 MG Capsule 50 MG PO ×2 (04:47→19:50)
[2021-01-25] MEDS: OLANZapine 2.5 MG Tablet 5 MG PO ×3 (04:47→22:35)
[2021-01-25] MEDS: Levothyroxine 175 MCG Tablet PO (04:47)
[2021-01-25] MEDS: Gabapentin 300 MG Capsule PO ×3 (04:47→22:35)
[2021-01-25] MEDS: Fludrocortisone Acetate 0.1 MG Tablet PO (08:03)
[2021-01-25] MEDS: Thiamine Hydrochloride 100 MG Tablet PO (08:03)
[2021-01-25] MEDS: Multivitamins,Ther W-Minerals Tablet 1 TABLET PO (08:03)
[2021-01-25] MEDS: Folic Acid 1 MG Tablet PO (08:03)
[2021-01-25 08:05] VITALS: BP 109/80; PULSE 101
[2021-01-25] MEDS: Enoxaparin 40 MG/0.4 ML Syringe SC (08:05)
[2021-01-25] MEDS: Metoprolol Tartrate 25 MG Tablet 12.5 MG PO (08:05)
[2021-01-25 08:09] VITALS: BP 109/80; PULSE 101; RESP 18; TEMP 36.9; O2SAT 97
--- NOTE | 2021-01-25 11:36 | NURSING ---
Pt is in bed sleeping. Muttering to self on and off. He was awaken to take his med he questions if its 2 tabs of the subutex due now he was notified that its one per doctors orders. Took meds and return to sleep.
--- NOTE | 2021-01-25 11:57 | PCM.PN.HOSP ---
Subjective Subjective No issues overnight. Patient sleeping this morning. Per nursing patient has had a lot of subjective complaints but no objective issues. Objective Data Objective Data Vital Signs: Vital Signs Temp Pulse Resp BP Pulse Ox 98.4 F 101 H 18 109/80 97 01/25/21 08:09 01/25/21 08:09 01/25/21 08:09 01/25/21 08:09 01/25/21 08:09 Oxygen Flow Rate (L/min) 2 Oxygen Delivery Method Room Air Weight: 66.134 kg Body Mass Index (BMI) 22.4 Intake & Output: Intake and Output for Last 24 Hours 01/23/21 01/24/21 01/25/21 23:59 23:59 23:59 Intake Total 700 / 700 800 / 800 400 / 400 Balance 700 / 700 800 / 800 400 / 400 Lab / Micro Data Result Diagrams: 01/24/21 06:45 01/24/21 06:45 Micro: Microbiology 01/23/21 11:50 Mucosa - Nose SARS-CoV-2 Antigen (Rapid) - Final Physical Exam Const Constitutional Narrative: Middle-aged white male who appears much older than stated age, lying in bed sleeping, appears comfortable Resp normal respiratory effort, no retractions, no use of accessory muscles and clear to auscultation bilaterally Resp Narrative: Diminished but clear Cardio regular rate, regular rhythm, S1 normal heart sound, S2 normal heart sound, no murmurs, no rub, no gallops, no clicks and no JVD GI normal to inspection, nondistended, normoactive bowel sounds, soft to palpation, non-tender and non-distended Extremity no clubbing, cyanosis or edema Peripheral Pulses: Yes pulses 2+ throughout Skin skin turgor normal, no jaundice, no petechiae and no mottling Skin Narrative: Multiple tattoos Assessment & Plan Assessment/Plan (1) Opioid withdrawal: (2) Bipolar disorder: PLAN: Acute opiate withdrawal -He has been using pain pills such as Percocet and methadone with regards to his abuse -Continue buprenorphine taper--> to be completed on 01/27/2021 -Patient may be discharged anytime after that last dose -Continue supportive medications -180 has evaluate the patient and the plan is for discharge and follow-up with individual counselor at 180 for follow-up after discharge to [facility] Chronic hepatitis C -History of IV drug use -Chronic stable -Recommend outpatient follow-up History of bipolar disorder -Continue home medications including lithium Hypothyroidism -Continue Synthroid BPH -Continue Flomax Hypertension -Continue metoprolol Vitamin D deficiency -Continue ergocalciferol at discharge -patient takes every Tuesday History of Takotsubo cardiomyopathy -Continue beta-consuelo -Last echo was June 2020 and shows a normal EF at 60% and no regional wall motion abnormalities History of non-Hodgkin's lymphoma -In remission History of RA -Patient is not on any current DMARDs COPD/tobacco abuse -Recommend cessation -Continue patch as needed -As needed nebulizers History of DVT -Patient has history of acute blood loss anemia secondary to upper GI bleed from gastritis -Patient is no longer on Eliquis -We will treat with prophylaxis History of GERD -Continue PPI DVT prophylaxis -Patient is off Eliquis secondary to GI bleed -Start Lovenox therapeutic dosing 40 mg daily Charges/Coding Visit Charges Inpatient E&M: 91333 Subs Hosp L2
[2021-01-25 13:38] VITALS: BP 113/84; PULSE 78; RESP 18; TEMP 36.7; O2SAT 99
[2021-01-25 13:41] VITALS: PULSE 80
[2021-01-25] MEDS: Ondansetron 8 MG Tablet PO (15:45)
[2021-01-25] MEDS: Tamsulosin HCl 0.4 MG Capsule PO (17:05)
[2021-01-25 19:53] VITALS: BP 97/72; PULSE 101; RESP 16; TEMP 37.4; O2SAT 94
[2021-01-25] MEDS: Montelukast 10 MG Tablet PO (22:35)
[2021-01-25] MEDS: Dicyclomine 10 MG Capsule 20 MG PO (22:35)
[2021-01-25] MEDS: traZODone 100 MG Tablet PO (22:35)
[2021-01-25] MEDS: Lithium Carbonate 150 MG Capsule 450 MG PO (22:35)
[2021-01-26 03:05] VITALS: BP 103/72; PULSE 98; RESP 17; TEMP 36.9; O2SAT 96
[2021-01-26] MEDS: Methocarbamol 750 MG Tablet 1500 MG PO ×3 (03:07→21:35)
[2021-01-26] MEDS: hydrOXYzine PAM 25 MG Capsule 50 MG PO ×2 (03:07→21:34)
[2021-01-26] MEDS: Buprenorphine HCl 2 MG TAB.SUBL SL ×2 (03:08→16:17)
[2021-01-26] MEDS: Levothyroxine 175 MCG Tablet PO (05:45)
[2021-01-26] MEDS: Dicyclomine 10 MG Capsule 20 MG PO ×2 (05:45→21:35)
[2021-01-26] MEDS: Gabapentin 300 MG Capsule PO ×3 (05:45→21:34)
[2021-01-26] MEDS: OLANZapine 2.5 MG Tablet 5 MG PO ×3 (05:45→21:34)
[2021-01-26 08:30] VITALS: BP 103/79; PULSE 73; RESP 16; TEMP 37.2; O2SAT 96
[2021-01-26 08:34] VITALS: PULSE 73
[2021-01-26] MEDS: Thiamine Hydrochloride 100 MG Tablet PO (08:34)
[2021-01-26] MEDS: Metoprolol Tartrate 25 MG Tablet 12.5 MG PO (08:34)
[2021-01-26] MEDS: Folic Acid 1 MG Tablet PO (08:34)
[2021-01-26] MEDS: Fludrocortisone Acetate 0.1 MG Tablet PO (08:34)
[2021-01-26] MEDS: Multivitamins,Ther W-Minerals Tablet 1 TABLET PO (08:34)
[2021-01-26] MEDS: Enoxaparin 40 MG/0.4 ML Syringe SC (08:35)
--- NOTE | 2021-01-26 12:01 | CASEMGMT ---
Addendum entered by Sho Angelo 01/26/21 12:36: SW received message from Kaity at [facility] stating they are not able to accept pt. Pt's second choice is [facility]. SW attempted to call [facility] multiple times, no answer. SW faxed referral to [facility]. Addendum entered by Sho Angelo 01/26/21 12:03: SW was updated by physician that pt cannot return to [facility] as pt threatened to kill someone. Per Jose's assessment with pt, pt denied any current SI/HI. Original Note: Social Work Note Per notes, pt is agreeable to SNF, prefers [facility] as first choice and [facility] as second. YESSENIA placed a call to [facility] and spoke with Dez. Dez states admissions is not available at this time, will relay message regarding referral. YESSENIA faxed referral to [facility]. Plan: [facility] pending acceptance and pre-cert Sho Angelo [employer], ASSISTANT GOLF COURSE SUPERINTENDENT
--- NOTE | 2021-01-26 13:07 | PCM.PN.HOSP ---
Subjective Subjective Patient remains sleepy. Awaiting case management assessment for possible placement. No other overnight issues. Objective Data Objective Data Vital Signs: Vital Signs Temp Pulse Resp BP Pulse Ox 99.0 F 73 16 103/79 96 01/26/21 08:30 01/26/21 08:34 01/26/21 08:30 01/26/21 08:30 01/26/21 08:30 Oxygen Flow Rate (L/min) 2 Oxygen Delivery Method Room Air Weight: 66.179 kg Body Mass Index (BMI) 22.4 Intake & Output: Intake and Output for Last 24 Hours 01/24/21 01/25/21 01/26/21 23:59 23:59 23:59 Intake Total 800 / 800 1250 / 1250 1290 / 1290 Balance 800 / 800 1250 / 1250 1290 / 1290 Lab / Micro Data Result Diagrams: 01/24/21 06:45 01/24/21 06:45 Micro: Microbiology 01/23/21 11:50 Mucosa - Nose SARS-CoV-2 Antigen (Rapid) - Final Physical Exam Const alert, oriented x3 and no apparent distress Constitutional Narrative: Middle-aged white male who appears much older than stated age, lying in bed sleeping, appears comfortable, awakens with limited interaction today but appropriate General Appearance: cooperative Exam Limitations: no limitations HEENT normocephalic, head/scalp atraumatic, hearing grossly normal bilaterally and moist oral mucous membranes Head and Scalp: normocephalic Resp normal respiratory effort, no retractions, no use of accessory muscles and clear to auscultation bilaterally Resp Narrative: Diminished but clear Cardio regular rate, regular rhythm, S1 normal heart sound, S2 normal heart sound, no murmurs, no rub, no gallops, no clicks and no JVD GI normal to inspection, nondistended, normoactive bowel sounds, soft to palpation, non-tender and non-distended Extremity no clubbing, cyanosis or edema Skin no rashes or lesions noted, skin turgor normal, no jaundice, no petechiae and no mottling Skin Narrative: Multiple tattoos Assessment & Plan Assessment/Plan (1) Opioid withdrawal: (2) Bipolar disorder: PLAN: Acute opiate withdrawal -He has been using pain pills such as Percocet and methadone with regards to his abuse -Continue buprenorphine taper--> last dose is later today -Patient may be discharged anytime after that last dose -Continue supportive medications -180 has evaluate the patient and the plan is for discharge and follow-up with individual counselor at 180 for follow-up after discharge to SNF -Referral sent for skilled placement Chronic hepatitis C -History of IV drug use -Chronic stable -Recommend outpatient follow-up History of bipolar disorder -Continue home medications including lithium Hypothyroidism -Continue Synthroid BPH -Continue Flomax Hypertension -Continue metoprolol Vitamin D deficiency -Continue ergocalciferol at discharge -patient takes every Tuesday History of Takotsubo cardiomyopathy -Continue beta-consuelo -Last echo was June 2020 and shows a normal EF at 60% and no regional wall motion abnormalities History of non-Hodgkin's lymphoma -In remission History of RA -Patient is not on any current DMARDs COPD/tobacco abuse -Recommend cessation -Continue patch as needed -As needed nebulizers History of DVT -Patient has history of acute blood loss anemia secondary to upper GI bleed from gastritis -Patient is no longer on Eliquis -We will treat with prophylaxis dosing of Lovenox History of GERD -Continue PPI DVT prophylaxis -Patient is off Eliquis secondary to GI bleed -Lovenox therapeutic dosing 40 mg daily Charges/Coding Visit Charges Inpatient E&M: 92017 Subs Hosp L2
--- NOTE | 2021-01-26 15:16 | CHAPLAIN ---
Type of Pastoral Visit _x__ Initial Visit ___ Follow-up Visit ___ On-call Visit ___ General Patient Visit ___ Spiritual Assessment ___ Family Conference ___ Bereavement ___ Rapid Response ___ Code Blue ___ Other (describe below) Pastoral Care Referral From _x__ Patient ___ Family ___ Nurse ___ Physician ___ Documentation Consultant ___ Bagging Salvager ___ Other (describe below) Sacrament/Intervention _x__ Active listening ___ Anointing ___ Amish ___ Bereavement ___ Communion ___ Eulalia exploration ___ ___ Life review _x__ Prayer ___ Reconciliation ___ Sacrament of Sick _x__ Supportive presence ___ Wedding ___ Other (describe below) Pastoral Comments patient has been seen numerous times over a number of admissions to this hospital; pt repeats his story about life and that no one is there for me; pt looking for help to find a place to live; prayer welcomed
--- NOTE | 2021-01-26 15:45 | CASEMGMT ---
Social Work Note SW received message from Urszula at [facility] stating they are not able to accept pt. SW in to speak with pt. SW introduced self and role at [facility]. SW updated pt that [facility] and [facility] are not able to accept pt. Pt states try [facility] in [place]. Pt states Selam Mckeon told him that he cannot return to [facility] but to look into [facility] in [place]. SW asked pt if he knew the name of the facility and pt states he doesn't. SW informed pt that this worker will call [facility] to get contact information for that facility. SW asked pt why he cannot return to [facility]. Pt states I messed up. Pt states I had some old pills in my coat pocket and they found them. Pt states he also got into it with a staff member. Pt states I was frustrated and made a comment of I was so mad I could kill someone. Pt denied having any homicidal plans. Pt denied any current homicidal thoughts/plans/ideations. YESSENIA placed a call to [facility] and spoke with Oh in admissions. Oh states she can provide admissions number to [facility] in [place] ([phone]). YESSENIA placed a call to [facility] in [place] and spoke with admissions. Admissions states she had already sent some clinical information to pt's insurance [facility] to get local intermodal truck driver policy and asked for additional clinicals to be faxed. Fax number [phone]. YESSENIA faxed referral to [facility] Plan: SNF pending acceptance and pre-cert Sho Angelo AERIAL GUNNER, STERILE INSTRUMENT TECHNICIAN
[2021-01-26 16:15] VITALS: BP 99/66; PULSE 94; RESP 16; TEMP 37.4; O2SAT 97
--- NOTE | 2021-01-26 17:59 | PCS.PANDOC ---
PANDEMIC DOCUMENTATION INITIATED: Date: 01/19/2021 Time: 190
[2021-01-26] MEDS: Tamsulosin HCl 0.4 MG Capsule PO (18:31)
[2021-01-26 21:27] VITALS: BP 104/76; PULSE 93; RESP 18; TEMP 37.1; O2SAT 94
[2021-01-26] MEDS: Loperamide 2 MG Capsule PO (21:34)
[2021-01-26] MEDS: Lithium Carbonate 150 MG Capsule 450 MG PO (21:34)
[2021-01-26] MEDS: Montelukast 10 MG Tablet PO (21:35)
[2021-01-26] MEDS: traZODone 100 MG Tablet PO (21:35)
[2021-01-27 02:22] VITALS: BP 101/65; PULSE 95; RESP 17; TEMP 37.1; O2SAT 95
[2021-01-27] MEDS: Acetaminophen 325 MG Tablet 650 MG PO ×2 (02:23→10:05)
[2021-01-27] MEDS: Methocarbamol 750 MG Tablet 1500 MG PO ×3 (05:04→20:59)
[2021-01-27] MEDS: Ondansetron 8 MG Tablet PO ×2 (05:04→14:10)
[2021-01-27] MEDS: Dicyclomine 10 MG Capsule 20 MG PO ×3 (05:04→20:59)
[2021-01-27] MEDS: hydrOXYzine PAM 25 MG Capsule 50 MG PO ×3 (05:04→20:59)
[2021-01-27] MEDS: OLANZapine 2.5 MG Tablet 5 MG PO ×3 (05:05→20:58)
[2021-01-27] MEDS: Gabapentin 300 MG Capsule PO ×3 (05:05→20:59)
[2021-01-27] MEDS: Levothyroxine 175 MCG Tablet PO (05:05)
[2021-01-27 06:22] LABS: Absolute Lymphocyte Count 5.31 X10^3/uL (0.83-4.51); Absolute Neutrophil Count 6.8 X10^3/uL (2.0-7.7); Basophil# 0.12 X10^3/uL; Basophil% 0.9 % (0-1); Eosinophil# 0.44 X10^3/uL; Eosinophils% 3.3 % (0-5); Hematocrit 40.2 % (40-54); Hemoglobin 11.9 g/dL (13.0-16.5); Lymphocyte # 5.31 X10^3/ul (0.83-4.51); Lymphocyte % 39.5 % (19-41); Mean Corp Hgb Conc 29.6 g/dL (32-36); Mean Corpuscular Hgb 25.9 pg (27.0-32.0); Mean Corpuscular Volume 87.4 fL (80-94); Mean Platelet Vol. 8.3 fl (6.2-12.0); Monocyte# 0.67 X10^3/uL; NRBC Flagged by Analyzer 0 % (0-5); Neutrophil # 6.83 X10^3/uL (2.7-7.7); Neutrophil % 50.8 % (47-70); POSITIVE DIFFERENTIAL YES; Platelet Count 317 K/mm3 (150-450); RBC Distribution Width CV 15.6 % (11.6-14.6); RBC Distribution Width SD 50.2 fl (35.1-43.9); White Blood Count 13.4 K/mm3 (4.4-11.0)
[2021-01-27 06:26] LABS: Differential Indicated SCAN CRITERIA MET
[2021-01-27 06:45] LABS: Anion Gap 4 (5-15); BUN 19 mg/dL (7-18); BUN/Creat Ratio 17.3 RATIO (10-20); Calcium,Total 8.5 mg/dL (8.5-10.1); Chloride 108 mmol/L (98-107); EST Glomerular Filtration Rate 74 mL/min (>60); Est Glom Filt Rate - Afr Amer 90 mL/min (>60); Estimated Creatinine Clearance 70.08 ml/min; Glucose 95 mg/dL (74-106); Potassium 4.1 mmol/L (3.5-5.1); Sodium Level 138 mmol/L (136-145)
[2021-01-27 06:57] LABS: Differential Comment SCANNED
--- NOTE | 2021-01-27 09:56 | CASEMGMT ---
Addendum entered by Sho Angelo 01/27/21 12:17: SW updated pt on acceptance to [facility] pending pre-cert. Pt states understanding. Original Note: Social Work Note SW placed a call to [facility] and spoke with Beth in admissions. Abigial states they are able to accept pt and submitted for pre-cert. YESSENIA asked Beth to let this worker know when pre-cert is obtained. Plan: [facility] pending pre-cert Sho Angelo STEM THRESHING MACHINE OPERATOR, PCTS
[2021-01-27 09:59] VITALS: BP 96/82; PULSE 85
[2021-01-27] MEDS: Folic Acid 1 MG Tablet PO (09:59)
[2021-01-27] MEDS: Enoxaparin 40 MG/0.4 ML Syringe SC (09:59)
[2021-01-27] MEDS: Fludrocortisone Acetate 0.1 MG Tablet PO (10:00)
[2021-01-27] MEDS: Multivitamins,Ther W-Minerals Tablet 1 TABLET PO (10:00)
[2021-01-27] MEDS: Thiamine Hydrochloride 100 MG Tablet PO (10:01)
[2021-01-27 10:06] VITALS: BP 96/82; PULSE 85; RESP 18; TEMP 36.9; O2SAT 92
--- NOTE | 2021-01-27 13:59 | NURSING ---
Wheeled himself out to nurses station and was tearful. Said he had a very real dream that nursing came in and told him he was getting kicked out of the hospital. Pt anxious. this nurse will give prn's-see EMAR.
[2021-01-27 14:06] VITALS: BP 114/68; PULSE 92; RESP 18; TEMP 37.7; O2SAT 95
[2021-01-27] MEDS: cloNIDine HCl 0.1 MG Tablet PO (14:10)
--- NOTE | 2021-01-27 15:59 | PCM.PN.HOSP ---
Subjective Subjective Patient with no complaints and no issues overnight. He is aware we are waiting for acceptance from a facility and pre-CERT to be obtained from his insurance company. Objective Data Objective Data Vital Signs: Vital Signs Temp Pulse Resp BP Pulse Ox 99.9 F H 92 18 114/68 95 01/27/21 14:06 01/27/21 14:06 01/27/21 14:06 01/27/21 14:06 01/27/21 14:06 Oxygen Flow Rate (L/min) 2 Oxygen Delivery Method Room Air Weight: 66.179 kg Body Mass Index (BMI) 22.4 Intake & Output: Intake and Output for Last 24 Hours 01/25/21 01/26/21 01/27/21 23:59 23:59 23:59 Intake Total 1250 / 1250 1890 / 1890 1220 / 1220 Balance 1250 / 1250 1890 / 1890 1220 / 1220 Lab / Micro Data Result Diagrams: 01/27/21 06:12 01/27/21 06:12 Labs: Laboratory Results - last 24 hr 01/27/21 06:12: WBC 13.4 H, RBC 4.60, Hgb 11.9 L, Hct 40.2, MCV 87.4, MCH 25.9 L, MCHC 29.6 L, RDW Std Deviation 50.2 H, RDW Coeff of Re 15.6 H, Plt Count 317, MPV 8.3, Immature Gran % (Auto) 0.500, Neut % (Auto) 50.8, Lymph % (Auto) 39.5, [place] % (Auto) 5.0, Eos % (Auto) 3.3, Baso % (Auto) 0.9, Absolute Neuts (auto) 6.8, Absolute Lymphs (auto) 5.31 H, Nucleated RBC % 0, Differential Comment SCANNED 01/27/21 06:12: Sodium 138, Potassium 4.1, Chloride 108 H, Carbon Dioxide 26.0, Anion Gap 4 L, BUN 19 H, Creatinine 1.10, Estim Creat Clear Calc 70.08, Est GFR (MDRD) Af Amer 90, Est GFR (MDRD) Non-Af 74, BUN/Creatinine Ratio 17.3, Glucose 95, Calcium 8.5 Micro: Microbiology 01/23/21 11:50 Mucosa - Nose SARS-CoV-2 Antigen (Rapid) - Final Physical Exam Const alert, oriented x3 and no apparent distress Constitutional Narrative: Middle-aged white male who appears much older than stated age, lying in bed sleeping, appears comfortable, awakens with limited interaction today but appropriate General Appearance: cooperative Exam Limitations: no limitations HEENT normocephalic, head/scalp atraumatic and hearing grossly normal bilaterally Head and Scalp: normocephalic Resp normal respiratory effort, no retractions, no use of accessory muscles and clear to auscultation bilaterally Resp Narrative: Diminished but clear Cardio regular rate, regular rhythm, S1 normal heart sound, S2 normal heart sound, no murmurs, no rub, no gallops, no clicks and no JVD GI normal to inspection, nondistended, normoactive bowel sounds, soft to palpation, non-tender and non-distended Extremity no clubbing, cyanosis or edema Psych Psych Narrative: patient very tearful Assessment & Plan Assessment/Plan (1) Opioid withdrawal: (2) Bipolar disorder: PLAN: Acute opiate withdrawal -He has been using pain pills such as Percocet and methadone with regards to his abuse -Buprenorphine taper has been completed -Continue supportive medications -180 has evaluate the patient and the plan is for discharge and follow-up with individual counselor at 180 for follow-up after discharge to SNF -Awaiting pre-CERT approval from insurance for placement to group home facility Chronic hepatitis C -History of IV drug use -Chronic stable -Recommend outpatient follow-up Leukocytosis -This appears to be a chronic issue with him with fluctuating white counts -Slightly higher today than he has been recently -No fevers -Check UA/chest x-ray -Repeat CBC in a.m. History of bipolar disorder -Continue home medications including lithium Hypothyroidism -Continue Synthroid BPH -Continue Flomax Hypertension -Continue metoprolol Vitamin D deficiency -Continue ergocalciferol at discharge -patient takes every Tuesday History of Takotsubo cardiomyopathy -Continue beta-consuelo -Last echo was June 2020 and shows a normal EF at 60% and no regional wall motion abnormalities History of non-Hodgkin's lymphoma -In remission History of RA -Patient is not on any current DMARDs COPD/tobacco abuse -Recommend cessation -Continue patch as needed -As needed nebulizers History of DVT -Patient has history of acute blood loss anemia secondary to upper GI bleed from gastritis -Patient is no longer on Eliquis -We will treat with prophylaxis dosing of Lovenox History of GERD -Continue PPI DVT prophylaxis -Patient is off Eliquis secondary to GI bleed -Lovenox therapeutic dosing 40 mg daily Charges/Coding Visit Charges Inpatient E&M: 12406 Subs Hosp L2
--- NOTE | 2021-01-27 16:25 | RAD_ITS ---
HISTORY: leukocytosis EXAMINATION/TECHNIQUE: XR Chest 1 View: COMPARISON: October 04, 2020 chest radiograph. September 23, 2020 CT abdomen and pelvis. FINDINGS: LINES/DEVICES: None. LUNGS: Patchy airspace opacity retrocardiac left lower lobe along the left hemidiaphragm. No right lung consolidation. Unremarkable interstitium. No effusion. Chronic prominent left costophrenic angle pericardial fat. No pneumothorax. MEDIASTINUM: No cardiomegaly. Aortic atherosclersosis. MUSCULOSKELETAL: No acute osseous finding. RAD/Chest 1 View (Portable) IMPRESSION: New left retrocardiac airspace opacity compatible with atelectasis or pneumonia in the appropriate setting. Radiographic follow-up recommended.. at 6827 Reported and signed by: Bal Wu MD Electronically Signed: Bal Wu MD at 23:16 EDT Tel , Service support ,
[2021-01-27] MEDS: Tamsulosin HCl 0.4 MG Capsule PO (16:56)
[2021-01-27 17:09] VITALS: BP 100/71; PULSE 86; RESP 18; TEMP 37.2; O2SAT 96
--- NOTE | 2021-01-27 17:12 | NURSING ---
This nurse explained reasoning for Urine sample and to wash hands prior to collection and how to collect. Pt got agitated and rolled his eyes. Pt states he knows how to collect a sample.
[2021-01-27 20:00] LABS: Bacteria 0 SEEN /hpf (None Seen); Mucous, Urine 0 SEEN /hpf (<or=2+); Red Blood Cells-Urine 0 SEEN /hpf (0-5); Squamous Epithelial Cells - UA 0 SEEN /hpf (0-5); White Blood Cells 0 SEEN /hpf (0-5)
[2021-01-27 20:03] LABS: Color, Urine Yellow (Yellow); Glucose, Dipstick Normal (Normal); Ketone-Dipstick Negative (Negative); Leukocyte Esterase-Dipstick Negative /ul (Negative); Nitrite-Dipstick Negative (Negative); Occult Blood-Urine Negative /ul (Negative); Protein-Dipstick Negative (Negative); Specific Gravity, Urine 1.005 (1.002-1.030); Urine Bilirubin Dipstick Negative (Negative); Urine Clarity Clear (Clear); Urine Urobilinogen Normal (Normal)
[2021-01-27] MEDS: traZODone 100 MG Tablet PO (20:59)
[2021-01-27] MEDS: Lithium Carbonate 150 MG Capsule 450 MG PO (20:59)
[2021-01-27] MEDS: Montelukast 10 MG Tablet PO (21:00)
[2021-01-27 21:15] VITALS: BP 107/72; PULSE 81; RESP 16; TEMP 36.8; O2SAT 97
[2021-01-28] MEDS: Ondansetron 8 MG Tablet PO (02:58)
[2021-01-28] MEDS: Dicyclomine 10 MG Capsule 20 MG PO ×3 (02:59→23:04)
[2021-01-28] MEDS: hydrOXYzine PAM 25 MG Capsule 50 MG PO (02:59)
[2021-01-28 03:15] VITALS: BP 95/76; PULSE 84; RESP 16; TEMP 36.8; O2SAT 98
[2021-01-28] MEDS: OLANZapine 2.5 MG Tablet 5 MG PO ×3 (06:27→20:06)
[2021-01-28] MEDS: Gabapentin 300 MG Capsule PO ×3 (06:27→20:06)
[2021-01-28] MEDS: Levothyroxine 175 MCG Tablet PO (06:27)
[2021-01-28 07:23] LABS: Basophil% 0.8 % (0-1); Eosinophil# 0.42 X10^3/uL; Eosinophils% 3.5 % (0-5); Hematocrit 41.2 % (40-54); Hemoglobin 12.2 g/dL (13.0-16.5); Lymphocyte % 31.6 % (19-41); Mean Corp Hgb Conc 29.6 g/dL (32-36); Mean Corpuscular Hgb 25.7 pg (27.0-32.0); Mean Corpuscular Volume 86.9 fL (80-94); Mean Platelet Vol. 9.4 fl (6.2-12.0); Monocyte# 0.69 X10^3/uL; Monocyte% 5.7 % (0-10); NRBC Flagged by Analyzer 0 % (0-5); Neutrophil # 6.96 X10^3/uL (2.7-7.7); Neutrophil % 58.1 % (47-70); Platelet Count 334 K/mm3 (150-450); RBC Distribution Width CV 15.7 % (11.6-14.6); RBC Distribution Width SD 50.2 fl (35.1-43.9); Red Blood Count 4.74 M/mm3 (4.6-6.2)
[2021-01-28 08:04] VITALS: BP 104/71; PULSE 81; RESP 16; TEMP 36.6; O2SAT 100
[2021-01-28] MEDS: Thiamine Hydrochloride 100 MG Tablet PO (08:12)
[2021-01-28] MEDS: Multivitamins,Ther W-Minerals Tablet 1 TABLET PO (08:12)
[2021-01-28] MEDS: Folic Acid 1 MG Tablet PO (08:12)
[2021-01-28] MEDS: Fludrocortisone Acetate 0.1 MG Tablet PO (08:12)
--- NOTE | 2021-01-28 09:44 | CASEMGMT ---
Addendum entered by Sho Angelo 01/28/21 11:06: YESSENIA placed a call to Beth at [facility], pre-cert is still pending. Original Note: Social Work Note YESSENIA faxed updated clinicals to [facility]. YESSENIA wrote on fax coversheet to let this worker know when pre-cert is obtained as pt is medically ready for discharge once pre-cert is obtained. Plan: [facility] pending pre-cert Sho Angelo ROOM SERVICE WAITER/WAITRESS, PIT FURNACE MELTER
[2021-01-28] MEDS: levoFLOXacin 750 MG Tablet PO (10:06)
[2021-01-28 10:07] VITALS: PULSE 81
[2021-01-28] MEDS: Enoxaparin 40 MG/0.4 ML Syringe SC (10:07)
[2021-01-28] MEDS: Metoprolol Tartrate 25 MG Tablet 12.5 MG PO (10:07)
[2021-01-28 13:47] VITALS: BP 96/71; PULSE 72; RESP 16; TEMP 37.1; O2SAT 100
--- NOTE | 2021-01-28 15:30 | CASEMGMT ---
Social Work Note SW placed a call to Beth at [facility] and left message regarding pre-cert. SW waiting for call back. Plan: [facility] pending pre-cert. Sho Angelo EQUIPMENT SPECIALIST, RN [facility]
--- NOTE | 2021-01-28 16:32 | PCM.PN.HOSP ---
Subjective Subjective Patient does indicate he has had intermittent cough but no fevers or chills. His chest x-ray shows an infiltrate and with his elevated white count I discussed with the patient initiate antibiotic for 5 days. He is agreeable. Adding on pre-CERT for discharge. Objective Data Objective Data Vital Signs: Vital Signs Temp Pulse Resp BP Pulse Ox 98.8 F 72 16 96/71 100 01/28/21 13:47 01/28/21 13:47 01/28/21 13:47 01/28/21 13:47 01/28/21 13:47 Oxygen Flow Rate (L/min) 2 Oxygen Delivery Method Room Air Weight: 66.179 kg Body Mass Index (BMI) 22.4 Intake & Output: Intake and Output for Last 24 Hours 01/26/21 01/27/21 01/28/21 23:59 23:59 23:59 Intake Total 1890 / 1890 1220 / 1220 Balance 1890 / 1890 1220 / 1220 Lab / Micro Data Result Diagrams: 01/28/21 06:30 01/27/21 06:12 Labs: Laboratory Results - last 24 hr 01/27/21 19:45: Urine Color Yellow, Urine Clarity Clear, Urine pH 7.0, Ur Specific Orange 1.005, Urine Protein Negative, Urine Glucose (UA) Normal, Urine Ketones Negative, Urine Occult Blood Negative, Urine Nitrite Negative, Urine Bilirubin Negative, Urine Urobilinogen Normal, Ur Leukocyte Esterase Negative, Urine RBC 0 SEEN, Urine WBC 0 SEEN, Ur Squamous Epith Cells 0 SEEN, Urine Bacteria 0 SEEN, Urine Mucus 0 SEEN 01/28/21 06:30: WBC 12.0 H, RBC 4.74, Hgb 12.2 L, Hct 41.2, MCV 86.9, MCH 25.7 L, MCHC 29.6 L, RDW Std Deviation 50.2 H, RDW Coeff of Re 15.7 H, Plt Count 334, MPV 9.4, Immature Gran % (Auto) 0.300, Neut % (Auto) 58.1, Lymph % (Auto) 31.6, [place] % (Auto) 5.7, Eos % (Auto) 3.5, Baso % (Auto) 0.8, Absolute Neuts (auto) 7.0, Absolute Lymphs (auto) 3.80, Nucleated RBC % 0 Micro: Microbiology 01/23/21 11:50 Mucosa - Nose SARS-CoV-2 Antigen (Rapid) - Final Radiography Diagnostic Testing: Radiology Impression Chest X-Ray 01/27/21 16:25 IMPRESSION: New left retrocardiac airspace opacity compatible with atelectasis or pneumonia in the appropriate setting. Radiographic follow-up recommended.. at 2317 Reported and signed by: Bal Wu MD Electronically Signed: Bal Wu MD at 23:16 EDT Tel , Service support , Physical Exam Const alert, oriented x3 and no apparent distress Constitutional Narrative: Middle-aged white male who appears much older than stated age, lying in bed awake, no acute distress, nontoxic-appearing General Appearance: cooperative Exam Limitations: no limitations HEENT normocephalic, head/scalp atraumatic, hearing grossly normal bilaterally and moist oral mucous membranes Head and Scalp: normocephalic Resp normal respiratory effort, no retractions and no use of accessory muscles Resp Narrative: Diminished with few scattered rhonchi, improved with cough Auscultation: rhonchi Cardio regular rate, regular rhythm, S1 normal heart sound, S2 normal heart sound, no murmurs, no rub, no gallops, no clicks and no JVD GI normal to inspection, nondistended, normoactive bowel sounds, soft to palpation, non-tender and non-distended Extremity normal to inspection and no clubbing, cyanosis or edema Peripheral Pulses: Yes pulses 2+ throughout Skin no rashes or lesions noted, skin turgor normal, no jaundice, no petechiae and no mottling Skin Narrative: Multiple tattoos Neuro oriented x3 and moves all extremities Sensorium / Orientation: awake and alert Speech: speech normal Psych Psych Narrative: Pleasant Assessment & Plan Assessment/Plan (1) Opioid withdrawal: (2) Bipolar disorder: PLAN: Acute opiate withdrawal -He has been using pain pills such as Percocet and methadone with regards to his abuse -Buprenorphine taper has been completed -Continue supportive medications -180 has evaluate the patient and the plan is for discharge and follow-up with individual counselor at 180 for follow-up after discharge to SNF -Still awaiting pre-CERT approval from insurance [facility] Suspected left-sided pneumonia -Chest x-ray shows new retrocardiac airspace opacity -Check urine Legionella and strep pneumo antigens -Start Levaquin day 1 of 5 Chronic hepatitis C -History of IV drug use -Chronic stable -Recommend outpatient follow-up Leukocytosis -Chest x-ray shows infiltrate -White count is slightly improved today -Continue to monitor -Antibiotic started for infiltrate History of bipolar disorder -Continue home medications including lithium Hypothyroidism -Continue Synthroid BPH -Continue Flomax Hypertension -Continue metoprolol Vitamin D deficiency -Continue ergocalciferol at discharge -patient takes every Tuesday History of Takotsubo cardiomyopathy -Continue beta-consuelo -Last echo was June 2020 and shows a normal EF at 60% and no regional wall motion abnormalities History of non-Hodgkin's lymphoma -In remission History of RA -Patient is not on any current DMARDs COPD/tobacco abuse -Recommend cessation -Continue patch as needed -As needed nebulizers History of DVT -Patient has history of acute blood loss anemia secondary to upper GI bleed from gastritis -Patient is no longer on Eliquis -We will treat with prophylaxis dosing of Lovenox History of GERD -Continue PPI DVT prophylaxis -Patient is off Eliquis secondary to GI bleed -Lovenox therapeutic dosing 40 mg daily Charges/Coding Visit Charges Inpatient E&M: 97329 Subs Hosp L2
[2021-01-28] MEDS: Tamsulosin HCl 0.4 MG Capsule PO (17:31)
[2021-01-28 20:00] VITALS: BP 97/66; PULSE 84; RESP 16; TEMP 37.2; O2SAT 97
[2021-01-28] MEDS: traZODone 100 MG Tablet PO (20:06)
[2021-01-28] MEDS: Montelukast 10 MG Tablet PO (20:07)
[2021-01-28] MEDS: Methocarbamol 750 MG Tablet 1500 MG PO (20:07)
[2021-01-28] MEDS: Lithium Carbonate 150 MG Capsule 450 MG PO (20:07)
[2021-01-28] MEDS: Loperamide 2 MG Capsule PO (20:10)
[2021-01-29 02:45] VITALS: BP 109/69; PULSE 78; RESP 16; TEMP 37.2; O2SAT 97
[2021-01-29] MEDS: Dicyclomine 10 MG Capsule 20 MG PO ×2 (05:47→12:59)
[2021-01-29] MEDS: Gabapentin 300 MG Capsule PO ×2 (05:47→13:00)
[2021-01-29] MEDS: Levothyroxine 175 MCG Tablet PO (05:47)
[2021-01-29] MEDS: levoFLOXacin 750 MG Tablet PO (05:47)
[2021-01-29] MEDS: OLANZapine 2.5 MG Tablet 5 MG PO ×2 (05:47→13:00)
[2021-01-29 06:49] LABS: Absolute Lymphocyte Count 4.39 X10^3/uL (0.83-4.51); Absolute Neutrophil Count 7.9 X10^3/uL (2.0-7.7); Basophil# 0.07 X10^3/uL; Basophil% 0.5 % (0-1); Eosinophil# 0.38 X10^3/uL; Eosinophils% 2.8 % (0-5); Hematocrit 40.4 % (40-54); Hemoglobin 12.3 g/dL (13.0-16.5); Lymphocyte # 4.39 X10^3/ul (0.83-4.51); Lymphocyte % 32.1 % (19-41); Mean Corp Hgb Conc 30.4 g/dL (32-36); Mean Corpuscular Hgb 25.9 pg (27.0-32.0); Mean Corpuscular Volume 85.2 fL (80-94); Monocyte# 0.86 X10^3/uL; Monocyte% 6.3 % (0-10); NRBC Flagged by Analyzer 0 % (0-5); Neutrophil # 7.92 X10^3/uL (2.7-7.7); Neutrophil % 57.9 % (47-70); Platelet Count 342 K/mm3 (150-450); RBC Distribution Width CV 15.6 % (11.6-14.6); Red Blood Count 4.74 M/mm3 (4.6-6.2); White Blood Count 13.7 K/mm3 (4.4-11.0)
[2021-01-29 07:45] VITALS: BP 99/69; PULSE 95; RESP 16; TEMP 36.8; O2SAT 98
[2021-01-29] MEDS: Folic Acid 1 MG Tablet PO (07:49)
[2021-01-29] MEDS: hydrOXYzine PAM 25 MG Capsule 50 MG PO (07:49)
[2021-01-29] MEDS: Multivitamins,Ther W-Minerals Tablet 1 TABLET PO (07:50)
[2021-01-29] MEDS: Fludrocortisone Acetate 0.1 MG Tablet PO (07:50)
[2021-01-29] MEDS: Thiamine Hydrochloride 100 MG Tablet PO (07:50)
[2021-01-29] MEDS: Methocarbamol 750 MG Tablet 1500 MG PO (07:50)
[2021-01-29] MEDS: Enoxaparin 40 MG/0.4 ML Syringe SC (07:50)
--- NOTE | 2021-01-29 10:12 | CASEMGMT ---
Addendum entered by Sho Angelo 01/29/21 11:56: YESSENIA received message from Beth at [facility] stating pre-cert has been obtained. YESSENIA placed a call back to Beth and asked about COVID test. Pt will need new COVID test. Beth states to use [facility] ([address] ) as that is the name [facility] used to be. YESSENIA completed [facility] in [place]. YESSENIA updated physician. SW to fax discharge paperwork once completed. Addendum entered by Sho Angelo 01/29/21 11:10: YESSENIA received message from Beth at [facility], pre-cert is still pending. Beth states she will call this worker when pre-cert is obtained. Original Note: Social Work Note YESSENIA placed a call to [facility] and left message for Beth regarding pt's pre-cert. YESSENIA waiting for call back. Plan: [facility] pending pre-cert Sho Angelo POLITICAL AIDE, AUDIT SENIOR ASSOCIATE
[2021-01-29 12:45] VITALS: BP 112/73; PULSE 89; RESP 16; TEMP 36.6; O2SAT 97
[2021-01-29 12:59] VITALS: PULSE 89
[2021-01-29] MEDS: Metoprolol Tartrate 25 MG Tablet 12.5 MG PO (12:59)
[2021-01-29] MEDS: Loperamide 2 MG Capsule PO (12:59)
--- NOTE | 2021-01-29 13:33 | DS.PCM_ITS ---
Providers Date of Admission: 01/23/21 Primary Care Physician: Dr. Vi Velásquez MD Reason For Visit: ACUTE OPIOD WITHDRAWAL Diagnosis Discharge Diagnosis (1) Opioid withdrawal: Status: Acute Code(s): F11.23 - Opioid dependence with withdrawal (2) Bipolar disorder: Status: Acute Code(s): F31.9 - Bipolar disorder, unspecified Medications at Discharge Home Medications montelukast 10 mg PO QHS 02/14/19 ergocalciferol (vitamin D2) 50,000 unit PO FR 08/29/20 folic acid 1 mg PO DAILY 08/29/20 levothyroxine 175 mcg PO DAILY 08/29/20 lithium carbonate 450 mg PO QHS 08/29/20 multivitamin with minerals 1 tablet PO DAILY 08/29/20 thiamine HCl (vitamin B1) 100 mg PO DAILY 08/29/20 olanzapine 5 mg PO TID 09/23/20 tamsulosin 0.4 mg PO DAILY@1730 capsule 09/29/20 docusate sodium [Colace] 100 mg PO DAILY PRN 01/23/21 fludrocortisone 0.1 mg PO DAILY 01/23/21 gabapentin 300 mg PO TID 01/23/21 metoprolol tartrate 12.5 mg PO DAILY 01/23/21 enoxaparin 40 mg SUBCUT DAILY #0 ml 01/29/21 food supplemt, lactose-reduced [Ensure Enlive] 120 ml PO 4X/DAY #0 ml 01/29/21 levofloxacin 750 mg PO DAILY@0600 #0 tab 01/29/21 Hospital Course Operations None Procedures None Summary of Care Provided Minutes Spent on Discharge: 45 Hospital Course: Mr. Acosta is a 55-year-old white male who presented to the emergency department [facility] on 01/23/2021 for acute opiate detox. On admission he was complaining of tremors, abdominal cramps, as well as increased sweating. The patient indicates he is used pain pills such as Percocet and methadone and his last use was on the morning of admission. He indicates he is utilized pain pills for approximately 8 months for hip and back pain. He also indicated he drinks alcohol but reported this was mainly on the weekends. He smokes 2 packs of cigarettes daily. His urine tox cream was positive for opiates. He was admitted to the general medical floor and treated with buprenorphine and supportive medications. He had a relatively uneventful detox. He was noted to have a persistently elevated white count which is not atypical for him. He does have a history of osteomyelitis for which he has been treated by infectious disease with meropenem and vancomycin having his antibiotics completed in the recent past. We obtained a UA and a chest x-ray. The chest x-ray showed a possible infiltrate versus atelectasis and he was therefore started on Levaquin given his cough. Urine Legionella and strep pneumo antigens were negative he will complete a 7-day course of this. He has 5 days left at discharge. The patient also thought he saw a worm in his stool on the evening of 01/28/2021. This was not verified by any medical personnel. A stool culture for ova and parasites was sent and pending at discharge and per discussion with micro we will have those results in 2 to 4 days. We will watch for these cultures after they are resulted. He was discharged in stable condition on 01/29/2021. Discharge diagnoses: Acute opiate withdrawal-resolved Opiate dependence History of Takotsubo cardiomyopathy-resolved Community acquired pneumonia History of sacral osteomyelitis-treatment completed -Treatment completion verified with infectious disease Chronic leukocytosis Chronic hepatitis C Hypothyroidism BPH Hypertension Vitamin D deficiency History of non-Hodgkin's lymphoma History of rheumatoid arthritis GERD History of bipolar disorder COPD Tobacco abuse Physical Exam Const alert, oriented x3 and no apparent distress Constitutional Narrative: Middle-aged white male who appears much older than stated age, lying in bed awake, no acute distress, nontoxic-appearing General Appearance: cooperative, comfortable, well kempt and well developed Orientation / Consciousness: awake Exam Limitations: no limitations HEENT normocephalic, head/scalp atraumatic, hearing grossly normal bilaterally and moist oral mucous membranes Eyes PERRL, EOMs intact bilaterally and conjunctivae normal Neck no lymphadenopathy, supple and no JVD Resp normal respiratory effort, no retractions and no use of accessory muscles Resp Narrative: Diminished with few scattered rhonchi, improved with cough Auscultation: rhonchi Cardio regular rate, regular rhythm, S1 normal heart sound, S2 normal heart sound, no murmurs, no rub, no gallops, no clicks and no JVD GI normal to inspection, nondistended, normoactive bowel sounds, soft to palpation, non-tender and non-distended Extremity normal to inspection and no clubbing, cyanosis or edema Skin no rashes or lesions noted, skin turgor normal, no jaundice, no petechiae and no mottling Skin Narrative: Multiple tattoos Neuro oriented x3 and moves all extremities Sensorium / Orientation: awake and alert Speech: speech normal Psych Psych Narrative: Pleasant, affect is flattened patient is tearful at times Weight / BMI Weight Weight: 66.179 kg Body Mass Index (BMI) 22.4 ABG / Lab / Microbiology Data Result Diagrams: 01/29/21 06:14 01/27/21 06:12 Laboratory: Laboratory Results - last 24 hr 01/29/21 06:14: WBC 13.7 H, RBC 4.74, Hgb 12.3 L, Hct 40.4, MCV 85.2, MCH 25.9 L , MCHC 30.4 L, RDW Std Deviation 49.0 H, RDW Coeff of Re 15.6 H, Plt Count 342, MPV 9.0, Immature Gran % (Auto) 0.400, Neut % (Auto) 57.9, Lymph % (Auto) 32.1, [place] % (Auto) 6.3, Eos % (Auto) 2.8, Baso % (Auto) 0.5, Absolute Neuts (auto) 7.9 H, Absolute Lymphs (auto) 4.39, Nucleated RBC % 0 Microbiology: Microbiology 01/29/21 12:50 Nasal Secretion SARS-CoV-2 Antigen (Rapid) - Final 01/28/21 19:50 Urine, Clean Catch Legionella Antigen - Final 01/28/21 19:50 Urine, Clean Catch Streptococcus pneumoniae Antigen (M - Final 01/23/21 11:50 Mucosa - Nose SARS-CoV-2 Antigen (Rapid) - Final D/C Instructions Discharge Diet: Low fat / Low cholesterol Discharge Activity: Return to Normal Activity Meaningful Use Info Meaningful Use Diagnoses (Choose all that apply): None applicable Discharge Plan Admission Admit Date/Time: 01/23/21 14:15 Primary Reason for Your Visit: Opiate Detox Attending Provider: Aranza Marcano Primary Care Provider: Vi Velásquez Discharge Orders/Prescriptions Prescriptions: New levofloxacin 750 mg Tablet 750 mg PO DAILY@0600 Qty: 0 RF: 0 enoxaparin 40 mg/0.4 mL Syringe 40 mg subcut DAILY Qty: 0 RF: 0 Ensure Enlive 0.08 gram-1.5 kcal/mL Liquid 120 ml PO 4X/DAY Qty: 0 RF: 0 Continued montelukast 10 MG tablet 10 mg PO QHS RF: 0 thiamine HCl (vitamin B1) 100 MG tablet 100 mg PO DAILY RF: 0 lithium carbonate 450 MG tablet extended release 450 mg PO QHS RF: 0 levothyroxine 150 MCG tablet 175 mcg PO DAILY RF: 0 folic acid 1 MG tablet 1 mg PO DAILY RF: 0 ergocalciferol (vitamin D2) 50,000 UNIT capsule 50,000 unit PO FR RF: 0 multivitamin with minerals 1 EACH tablet 1 tablet PO DAILY RF: 0 olanzapine 5 MG tablet 5 mg PO TID RF: 0 tamsulosin 0.4 MG capsule 0.4 mg PO DAILY@1730 RF: 0 docusate sodium [Colace] 100 mg Capsule 100 mg PO DAILY PRN (Reason: Constipation) RF: 0 fludrocortisone 0.1 mg Tablet 0.1 mg PO DAILY RF: 0 metoprolol tartrate 25 mg Tablet 12.5 mg PO DAILY RF: 0 gabapentin 300 mg Tablet 300 mg PO TID RF: 0 Discontinued methadone 10 MG tablet 10 mg PO BID RF: 0 meropenem-0.9% sodium chloride 1 GM/50 ML piggyback 1 gm IV TID RF: 0 nystatin 1 billion unit Powder 1 unit RF: 0 Referrals / Follow Up: Vi Velásquez MD [Primary Care Provider] - Charges/Coding Visit Charges Inpatient E&M: 19661 SNF Disch >30 Min
--- NOTE | 2021-01-29 14:19 | PCM.TXEXTCAR ---
Diet 01/23/21 15:07 Diet: Cardiac - Heart Healthy Food consistency:: Regular Liquid Consistency:: Regular/Thin Routine Orders/Code Status Suppository Frequency: Daily PRN O2 Frequency: PRN Keep PO Greater than or Equal to (%): 88 Routine Lab Work: CBC and BMP Code Status: Full Code Therapies Weight Bearing: Full weight bearing Physical Therapy: Eval and Treat Occupational Therapy: Eval and Treat Problem/Diagnosis (1) Opioid withdrawal: Status: Acute (2) Bipolar disorder: Status: Acute Allergies/Procedures Done in Hospital Allergies methotrexate Adverse Reaction (Verified 01/23/21 11:20) Hives,Rash,Lesions naproxen [From Naprosyn] Adverse Reaction (Verified 01/23/21 11:20) Upset Stomach BEE VENOM Allergy (Uncoded 01/23/21 11:20) Anaphylaxis ROOT BEER Allergy (Uncoded 01/23/21 11:20) Hives Procedures: None Type of Care/Length of Stay Estimated LOS: Convalescent Care Less Than 30 days Type of Care Needed: Skilled Rehab Potential: Good Prognosis: Fair Additional Orders/Day of Discharge Day of Discharge: 01/29/21 Dietary and Speech Recommendations Dietitian Recommendations/Changes: continue cardiac diet and ensure enlive 120mL 4x/day w/ medpass; consider liberalizing diet to regular if PO intake is poor at meals. Wt appears stable- will d/c daily wts. Discharge Plan Admission Admit Date/Time: 01/23/21 14:15 Primary Reason for Your Visit: Opiate Detox Attending Provider: Aranza Marcano Primary Care Provider: Vi Velásquez Discharge Orders/Prescriptions Prescriptions: New levofloxacin 750 mg Tablet 750 mg PO DAILY@0600 Qty: 0 RF: 0 enoxaparin 40 mg/0.4 mL Syringe 40 mg subcut DAILY Qty: 0 RF: 0 Ensure Enlive 0.08 gram-1.5 kcal/mL Liquid 120 ml PO 4X/DAY Qty: 0 RF: 0 Continued montelukast 10 MG tablet 10 mg PO QHS RF: 0 thiamine HCl (vitamin B1) 100 MG tablet 100 mg PO DAILY RF: 0 lithium carbonate 450 MG tablet extended release 450 mg PO QHS RF: 0 levothyroxine 150 MCG tablet 175 mcg PO DAILY RF: 0 folic acid 1 MG tablet 1 mg PO DAILY RF: 0 ergocalciferol (vitamin D2) 50,000 UNIT capsule 50,000 unit PO FR RF: 0 multivitamin with minerals 1 EACH tablet 1 tablet PO DAILY RF: 0 olanzapine 5 MG tablet 5 mg PO TID RF: 0 tamsulosin 0.4 MG capsule 0.4 mg PO DAILY@1730 RF: 0 docusate sodium [Colace] 100 mg Capsule 100 mg PO DAILY PRN (Reason: Constipation) RF: 0 fludrocortisone 0.1 mg Tablet 0.1 mg PO DAILY RF: 0 metoprolol tartrate 25 mg Tablet 12.5 mg PO DAILY RF: 0 gabapentin 300 mg Tablet 300 mg PO TID RF: 0 Discontinued methadone 10 MG tablet 10 mg PO BID RF: 0 meropenem-0.9% sodium chloride 1 GM/50 ML piggyback 1 gm IV TID RF: 0 nystatin 1 billion unit Powder 1 unit RF: 0 Referrals / Follow Up: Vi Velásquez MD [Primary Care Provider] -
--- NOTE | 2021-01-29 14:32 | CHAPLAIN ---
Type of Pastoral Visit ___ Initial Visit _x__ Follow-up Visit ___ On-call Visit ___ General Patient Visit ___ Spiritual Assessment ___ Family Conference ___ Bereavement ___ Rapid Response ___ Code Blue ___ Other (describe below) Pastoral Care Referral From _x__ Patient ___ Family ___ Nurse ___ Physician ___ Bow Stapler ___ Liquor Bridge Operator ___ Other (describe below) Sacrament/Intervention _x__ Active listening ___ Anointing ___ Sikhism ___ Bereavement ___ Communion ___ Eulalia exploration ___ ___ Life review _x__ Prayer ___ Reconciliation ___ Sacrament of Sick ___ Supportive presence ___ Wedding ___ Other (describe below) Pastoral Comments patient says he has anxiety about getting his belongings from [facility] and about the transfer to a different SNF; offer of presence and prayer received
--- NOTE | 2021-01-29 14:57 | CASEMGMT ---
Social Work Note SW faxed completed discharge paperwork to [facility] including transfer to extended care facility, signed medication list, any scripts, and COVID tool/test. Original in SNF Folder and copy on pt's chart. SW arranged transportation through [facility] via wheelchair van for 3:30pm. Transportation form completed and placed on SNF folder and copy on pt's chart. SW updated RN on transportation time. SW placed a call to Beth at [facility] and left message updating her on transportation time. Pt updated. Plan: [facility] with [facility] transporting pt via wheelchair van at 3:30pm Sho ARAIZA, DIGITAL MARKETER
--- NOTE | 2021-01-29 15:18 | NURSING ---
report called to Evelyn at [facility] in [place]. pt had friend bring 3 large bags of belongings. informed pt that the squad would not be able to transport all bags and requested that he merge his belongings that he might need for the next few days into 1 bag, pt called daughter Francisca who said she would be able to roll picker remaining bags from the main entrance
== END 2021-01-29 15:47 | disposition skilled nursing facility (03) | DRG 773 ==
LOC: ED 14:31 → MS3 14:51
PROVIDERS: Admitting Provider Student in an Organized Health Care Education/Training Program; Emergency Provider Emergency Medicine; PCP Student in an Organized Health Care Education/Training Program; Visit Provider Internal Medicine
DX: F11.23 Opioid dependence with withdrawal (principal); J44.0 Chronic obstructive pulmonary disease with (acute) lower respiratory infection; J18.9 Pneumonia, unspecified organism; I11.0 Hypertensive heart disease with heart failure; I50.22 Chronic systolic (congestive) heart failure; F31.9 Bipolar disorder, unspecified; M54.9 Dorsalgia, unspecified; G89.29 Other chronic pain; K92.1 Melena; B18.2 Chronic viral hepatitis C; Z20.822 Contact with and (suspected) exposure to COVID-19; M06.9 Rheumatoid arthritis, unspecified; E03.9 Hypothyroidism, unspecified; N40.0 Benign prostatic hyperplasia without lower urinary tract symptoms; E55.9 Vitamin D deficiency, unspecified; K21.9 Gastro-esophageal reflux disease without esophagitis; F17.210 Nicotine dependence, cigarettes, uncomplicated; Z79.890 Hormone replacement therapy; Z79.899 Other long term (current) drug therapy; I25.2 Old myocardial infarction; Z86.718 Personal history of other venous thrombosis and embolism; Z85.72 Personal history of non-Hodgkin lymphomas; Z96.649 Presence of unspecified artificial hip joint
CPT/HCPCS: 36415; 71045; 80048; 80053; 80307; 81001; 82077; 85025; 87177; 87209; 87426; 87449; 97110; 97162; 97166; 97530; 97535; 97802; 97803; 99284; 99406; H0012

== ENCOUNTER → 2021-02-25 12:44 | Outpatient (CLI) | payer MEDICAID, SELFPAY ==
--- NOTE | 2021-02-25 12:47 | CT_ITS ---
STUDY: CT CHEST WITHOUT CONTRAST REASON FOR EXAM: Male, 55 years old. Abnormal CXR, Concern for right nodule -- Longtime smoker and history of IV drug use RADIATION DOSAGE (If Supplied By Facility): CTDIvol = ( 15.12 ) mGy, DLP = ( 476.01 ) mGycm TECHNIQUE: Transaxial imaging was performed without the administration of intravenous contrast material. Multiplanar coronal and sagittal images were reformatted. Individualized dose optimization techniques were used for this CT. COMPARISON: Comparison is made with prior chest radiograph dated 01/27/2021. FINDINGS: The lungs are normal. There is no demonstrated pleural abnormality. There are calcifications of the coronary arteries. There are multiple small lymph nodes within the mediastinum, which are normal in size and morphology most compatible with reactive lymph hyperplasia. Normal hilar regions. Normal unenhanced pulmonary arteries. There is atherosclerotic calcification of the aortic arch with tortuosity and elongation of the aortic arch and descending thoracic aorta. There are degenerative changes of the thoracic spine. There is no demonstrated abnormality of the visualized upper abdomen. CT/Chest without Contrast IMPRESSION: No acute abnormalities. Electronically Signed: Davis Honeycutt MD at 13:33 EDT , Service support ,
== END ==
PROVIDERS: PCP Student in an Organized Health Care Education/Training Program; Referring Provider Internal Medicine Critical Care Medicine; Visit Provider Internal Medicine Critical Care Medicine
DX: R93.89 Abnormal findings on diagnostic imaging of other specified body structures (principal)
CPT/HCPCS: 71250

== ENCOUNTER 2021-06-20 21:58 | Observation (INO) | payer MEDICAID, SELFPAY ==
[2021-06-20 22:01] VITALS: BP 151/138; PULSE 89; RESP 16; TEMP 35.9; O2SAT 96; BMI 23.8
--- NOTE | 2021-06-20 22:26 | RAD_ITS ---
STUDY: X-RAY CHEST REASON FOR EXAM: Male, 56 years old. chest pain TECHNIQUE: Single frontal view of the chest. COMPARISON: CT chest 02/25/2021 and chest x-ray January 2021 FINDINGS: The lungs are clear and expanded. There is no demonstrated pleural abnormality. Normal size heart. Normal mediastinum and rima. Normal visualized pulmonary arteries. Normal visualized aortic arch and descending thoracic aorta. Normal visualized thoracic spine. Normal visualized ribs, clavicles, and shoulders. There is no demonstrated abnormality of the visualized soft tissue structures of the upper abdomen. RAD/Chest 1 View (Portable) IMPRESSION: Normal x-ray examination of the chest. Electronically Signed: Ta Mesa MD at 23:00 EST , Service support ,
--- NOTE | 2021-06-20 22:26 | EKG12_ITS ---
Test Reason : CHEST PAIN Blood Pressure : / mmHG Vent. Rate : 089 BPM Atrial Rate : 089 BPM P-R Int : 172 ms QRS Dur : 084 ms QT Int : 400 ms P-R-T Axes : 019 070 100 degrees QTc Int : 486 ms Normal sinus rhythm Nonspecific ST and T wave abnormality Abnormal ECG Confirmed by BETY MOHAN, PETRONA ([id number]), advertising editor LYNN DEVRIES ([id number]) on 06/22/2021 10:55:08 AM Referred By: JENIFFER Confirmed By:PETRONA ALBERT MD
--- NOTE | 2021-06-20 22:30 | EKG12_ITS ---
Test Reason : REPEAT Blood Pressure : / mmHG Vent. Rate : 073 BPM Atrial Rate : 073 BPM P-R Int : 146 ms QRS Dur : 082 ms QT Int : 420 ms P-R-T Axes : -20 058 061 degrees QTc Int : 462 ms Normal sinus rhythm Nonspecific T wave abnormality Abnormal ECG Confirmed by BETY MOHAN, PETRONA ([id number]), senior editor LYNN DEVRIES ([id number]) on 06/22/2021 10:55:28 AM Referred By: JENIFFER Confirmed By:PETRONA ALBERT MD
[2021-06-20 22:36] LABS: Absolute Lymphocyte Count 2.63 X10^3/uL (0.83-4.51); Absolute Neutrophil Count 12.4 X10^3/uL (2.0-7.7); Basophil# 0.06 X10^3/uL; Basophil% 0.4 % (0-1); Eosinophil# 0.19 X10^3/uL; Eosinophils% 1.2 % (0-5); Hematocrit 46.7 % (40-54); Hemoglobin 15.3 g/dL (13.0-16.5); Lymphocyte # 2.63 X10^3/ul (0.83-4.51); Lymphocyte % 16.1 % (19-41); Mean Corp Hgb Conc 32.8 g/dL (32-36); Mean Corpuscular Hgb 28.7 pg (27.0-32.0); Mean Corpuscular Volume 87.5 fL (80-94); Mean Platelet Vol. 8.5 fl (6.2-12.0); Monocyte# 0.97 X10^3/uL; Monocyte% 5.9 % (0-10); NRBC Flagged by Analyzer 0 % (0-5); Neutrophil # 12.42 X10^3/uL (2.7-7.7); Neutrophil % 75.8 % (47-70); Platelet Count 358 K/mm3 (150-450); RBC Distribution Width CV 13.2 % (11.6-14.6); RBC Distribution Width SD 42.2 fl (35.1-43.9); Red Blood Count 5.34 M/mm3 (4.6-6.2); White Blood Count 16.4 K/mm3 (4.4-11.0)
[2021-06-20 22:43] VITALS: O2SAT 96
--- NOTE | 2021-06-20 22:47 | ED.VIS.CHEST ---
HPI History of Present Illness Chief Complaint: Chest Pain Informant: patient Narrative Narrative: Patient is a 56-year-old male with complex medical history including sacral osteomyelitis, NSTEMI and IV drug abuse as well as bipolar disorder on lithium therapy presenting with chest pain. Patient states he has been feeling yucky for the past 2 days. He had congestion and upper respiratory symptoms. He took Robitussin tonight that his daughter gave to him. Shortly afterwards he started to feel funny, felt shaky and it hurt to take deep breath. Patient states he is having discomfort in the center of his chest that radiates up to his right chest. He does have a history of angina. He is not sure if this is an interaction of the Robitussin with his lithium. He came into the emergency room for further evaluation of the symptoms. He notes symptoms have improved however he still having a mild chest discomfort. Was feeling well before this besides his cold symptoms and was about to go to bed when all this started. Denies any shortness of breath or difficulty breathing. No other complaints at this time. Was not aware of any exposures to COVID-19. Has not been tested within the last few days. [facility] Medical History Acute ST elevation myocardial infarction (STEMI) of inferior wall (06/12/19) Acute systolic CHF (congestive heart failure) MALINDA (acute kidney injury) Amphetamine abuse Avascular necrosis of left femoral head Bacteremia Bipolar disorder Bipolar disorder Cholangitis COPD (chronic obstructive pulmonary disease) Encephalopathy Essential hypertension Hepatitis C, chronic History of non-ST elevation myocardial infarction (NSTEMI) (06/26/20) Hypothyroidism Intravenous drug abuse IVDU (intravenous drug user) NH lymphoma Nicotine dependence Non-Hodgkin lymphoma in remission Opiate abuse, continuous Rhabdomyolysis Rheumatoid arthritis Severe sepsis Takotsubo cardiomyopathy (06/2019) Home Medications montelukast 10 mg PO QHS 02/14/19 [History Last Taken 09/21/20] ergocalciferol (vitamin D2) 50,000 unit PO FR 08/29/20 [History Last Taken 09/19/20] folic acid 1 mg PO DAILY 08/29/20 [History Last Taken 09/22/20] levothyroxine 175 mcg PO DAILY 08/29/20 [History Last Taken 09/22/20] lithium carbonate 450 mg PO QHS 08/29/20 [History Last Taken 09/21/20] multivitamin with minerals 1 tablet PO DAILY 08/29/20 [History Last Taken 09/22/20] thiamine HCl (vitamin B1) 100 mg PO DAILY 08/29/20 [History Last Taken 09/22/20] olanzapine 5 mg PO TID 09/23/20 [History Last Taken 09/22/20] tamsulosin 0.4 mg PO DAILY@1730 capsule 09/29/20 [Rx Last Taken Unknown] docusate sodium [Colace] 100 mg PO DAILY PRN 01/23/21 [History Last Taken Unknown] fludrocortisone 0.1 mg PO DAILY 01/23/21 [History Last Taken Unknown] gabapentin 300 mg PO TID 01/23/21 [History Last Taken Unknown] metoprolol tartrate 12.5 mg PO DAILY 01/23/21 [History Last Taken Unknown] enoxaparin 40 mg SUBCUT DAILY #0 ml 01/29/21 [Rx Last Taken Unknown] food supplemt, lactose-reduced [Ensure Enlive] 120 ml PO 4X/DAY #0 ml 01/29/21 [Rx Last Taken Unknown] levofloxacin 750 mg PO DAILY@0600 #0 tab 01/29/21 [Rx Last Taken Unknown] Allergy/AdvReac Type Severity Reaction Status Date / Time methotrexate AdvReac Hives,Rash, Verified 06/20/21 22:00 Lesions naproxen [From Naprosyn] AdvReac Upset Verified 06/20/21 22:00 Stomach BEE VENOM Allergy Anaphylaxis Uncoded 06/20/21 22:00 ROOT BEER Allergy Hives Uncoded 06/20/21 22:00 Family History (Updated 06/21/21 @ 02:[address] Aide Gallego MD) Mother Cancer Father Cancer Surgical History facial reconstructive surgery H/O arthroscopic knee surgery H/O total hip arthroplasty History of appendectomy History of cholecystectomy History of left heart catheterization (06/12/19) Social History (Updated 06/21/21 @ 02:[address] Aide Gallego MD) household members: other details: Lives with his daughter. Smoking Status: Current every day smoker tobacco type: cigarettes Smoking packs per day: 1.5 Smoking cigarettes per day: 30.0 Years smoked: 44 Smoking pack-years: 66.00 alcohol intake: former details: Sober x 6 months (12/2020) substance use type: former substance user Date of last use: Notes clean x 4 months (03/2021) additional social history: Has not use cocaine in 5 years ROS ROS ED Constitutional Constitutional ED: Denies chills or fever(s) Eyes Eyes: Denies change in vision ENT ENT ED: Reports rhinorrhea Cardiovascular Cardiovascular: Reports as per HPI, chest pain and palpitations Respiratory/Chest Respiratory/Chest: Denies cough, dyspnea or sputum Gastrointestinal Gastrointestinal: Denies abdominal pain, diarrhea, nausea or vomiting Musculoskeletal Musculoskeletal: Denies arthralgias or myalgias Integumentary Denies rash Neurologic Neurologic: Denies headache(s) or weakness Psychiatric Psychiatric: Denies depression EXAM Physical Exam Const Vital Signs: 06/20/21 22:01 06/20/21 22:30 06/20/21 22:43 Temperature 96.6 F L Temperature Source Temporal Pulse Rate 89 Respiratory Rate 16 Respiratory Effort Normal Blood Pressure 151/138 H Blood Pressure Mean 142 Pulse Ox 96 96 Oxygen Delivery Method Room Air Room Air 06/20/21 23:16 06/21/21 00:27 06/21/21 01:16 Temperature Temperature Source Pulse Rate 80 88 101 H Respiratory Rate 18 19 H 15 Respiratory Effort Blood Pressure 131/76 H 133/88 H 130/84 H Blood Pressure Mean 94 103 99 Pulse Ox 95 92 94 Oxygen Delivery Method Room Air Room Air Room Air 06/21/21 01:25 06/21/21 01:32 06/21/21 01:37 Temperature Temperature Source Pulse Rate 79 89 97 Respiratory Rate Respiratory Effort Blood Pressure 132/81 H 117/81 H 122/71 H Blood Pressure Mean Pulse Ox Oxygen Delivery Method 06/21/21 02:03 Temperature Temperature Source Pulse Rate 91 Respiratory Rate 19 H Respiratory Effort Blood Pressure 100/66 Blood Pressure Mean 77 Pulse Ox 98 Oxygen Delivery Method Room Air Positive well nourished and well developed General Appearance ED: well developed HEENT Reports moist mucous membranes normocephalic and atraumatic Eyes PERRL and EOMs intact bilaterally Neck supple and no JVD Chest Wall inspection of chest normal Chest Narrative: Mild tenderness palpation of the right chest just next to the sternum. No crepitus or other abnormalities appreciated. Resp normal respiratory effort Resp Narrative: Coarse breath sounds with mild crackles appreciated at the bases GI normal to inspection, nondistended, normoactive bowel sounds Extremity normal to inspection General Extremety ED: Negative for edema or tenderness General Extremity: Negative for edema Neuro oriented x3 Sensorium / Orientation: awake and alert Motor Exam: Negative for general weakness Psych mental status grossly normal Skin no rashes or lesions noted and no wounds Heart Score History: Moderately Suspicious ECG: Nonspecific Repolarization Age: >45 - <65 years Risk Factors: 1 or 2 Risk Factors Troponin: </= Normal Limit Score: 4 MDM MDM MDM Narrative Medical decision making narrative: Patient is evaluated for sudden onset of chest discomfort. Is in the center of his chest. Notes it hurts when he breathes. He has had a mild cold for the past few days. Patient continues have pain in the ER after aspirin. He is given nitroglycerin with significant improvement after his first dose but no change after subsequent doses. He does have a leukocytosis of 16.4 of uncertain significance. There is no obvious source. Chest x-rays not show any acute process. Has been seen troponins normal x2 however given new T wave inversions and continued chest pain I do think patient would benefit from extended cardiac monitoring and observation. He is agreeable with this and states he felt better staying in the hospital. COVID swab is negative. Lab Data Labs: Laboratory Results - last 24 hr 06/20/21 06/20/21 06/20/21 22:20 22:20 22:40 WBC 16.4 H RBC 5.34 Hgb 15.3 Hct 46.7 MCV 87.5 MCH 28.7 MCHC 32.8 RDW Std Deviation 42.2 RDW Coeff of Re 13.2 Plt Count 358 MPV 8.5 Immature Gran % (Auto) 0.600 Neut % (Auto) 75.8 H Lymph % (Auto) 16.1 L [place] % (Auto) 5.9 Eos % (Auto) 1.2 Baso % (Auto) 0.4 Absolute Neuts (auto) 12.4 H Absolute Lymphs (auto) 2.63 Nucleated RBC % 0 Sodium 137 Potassium 3.2 L Chloride 107 Carbon Dioxide 25.0 Anion Gap 5 BUN 8 Creatinine 0.98 Estim Creat Clear Calc 77.76 Est GFR (MDRD) Af Amer 102 Est GFR (MDRD) Non-Af 85 BUN/Creatinine Ratio 8.1 L Glucose 154 H Calcium 9.2 Magnesium Troponin I High Sens 7 Procalcitonin TSH 6.98 H [place] 0.80 06/20/21 06/21/21 06/21/21 22:40 00:24 00:24 WBC RBC Hgb Hct MCV MCH MCHC RDW Std Deviation RDW Coeff of Re Plt Count MPV Immature Gran % (Auto) Neut % (Auto) Lymph % (Auto) [place] % (Auto) Eos % (Auto) Baso % (Auto) Absolute Neuts (auto) Absolute Lymphs (auto) Nucleated RBC % Sodium Potassium Chloride Carbon Dioxide Anion Gap BUN Creatinine Estim Creat Clear Calc Est GFR (MDRD) Af Amer Est GFR (MDRD) Non-Af BUN/Creatinine Ratio Glucose Calcium Magnesium 2.0 Troponin I High Sens 6 Procalcitonin 0.08 TSH [place] Radiography Chest X-Ray - ED: 1 View, Read by ED Physician, Read by Radiologist and No Acute Disease Diagnostic Testing: Clinical Impression(s) from Imaging Studies Chest X-Ray 06/20/21 22:26 IMPRESSION: Normal x-ray examination of the chest. Electronically Signed: Ta Mesa MD at 23:00 EST , Service support , Rhythm Strip Rhythm Strip: Sinus Rhythm Rate: 89 Ectopy: None EKG Initial EKG: Attestation: I personally reviewed and interpreted this EKG as follows: Interpretation: Sinus Rhythm Comments: Normal sinus rhythm and rate of 89 Normal axis T wave inversion in lead III Tremulous baseline making difficult to interpret further T wave changes however no significant ST segment changes. No significant change compared to prior EKG on 09/22/2020 however patient is no longer tachycardic Follow-up EKG: Attestation: I personally reviewed and interpreted this EKG as follows: Interpretation: Sinus Rhythm and Inverted T-Waves Comments: Normal sinus rhythm at a rate of 73 Normal axis Normal intervals T wave inversions in 1 as well as V3 through V6 These are new compared to prior EKGs Discharge Plan Triage Chief Complaint: Chest Pain ED Provider: Sabina uHbbard Dx/Rx/DC Orders Clinical Impression: Chest pain, Abnormal ECG Primary Care Provider: Vi Velásquez Disposition Disposition: [facility]
[2021-06-20 23:02] LABS: Anion Gap 5 (5-15); BUN 8 mg/dL (7-18); BUN/Creat Ratio 8.1 RATIO (10-20); Calcium,Total 9.2 mg/dL (8.5-10.1); Chloride 107 mmol/L (98-107); Creatinine, Serum 0.98 mg/dL (0.70-1.30); EST Glomerular Filtration Rate 85 mL/min (>60); Est Glom Filt Rate - Afr Amer 102 mL/min (>60); Estimated Creatinine Clearance 77.76 ml/min; Glucose 154 mg/dL (74-106); Potassium 3.2 mmol/L (3.5-5.1); Sodium Level 137 mmol/L (136-145); Thyroid Stim Hormone (TSH) 6.98 uIU/mL (0.358-3.74); Troponin-I HS 7 pg/mL (3.0-78.0)
[2021-06-20] MEDS: Aspirin 81 MG TAB.CHEW 324 MG PO (23:12)
[2021-06-20] MEDS: 0.9% Normal Saline 1,000 ML 1000 ML IV (23:13)
[2021-06-20 23:16] VITALS: BP 131/76; PULSE 80; RESP 18; O2SAT 95
[2021-06-21] VITALS (16 sets, daily range): BP systolic 100–133; BP diastolic 66–88; PULSE 74–101; RESP 15–19; TEMP 2.8–37; O2SAT 92–99; BMI 23.4
[2021-06-21 00:53] LABS: Troponin-I HS 6 pg/mL (3.0-78.0)
[2021-06-21] MEDS: Nitroglycerin SL (ED/IMG/CATH) 0.4 MG TABLET SL ×3 (01:25→01:37)
--- NOTE | 2021-06-21 02:09 | PCM.HP.STD ---
HPI - General General Date of Admission: 06/21/21 Date of Service: 06/21/21 Chief Complaint: Chest pain HPI Narrative The patient is a 56 y/o M w/ PMHx: Nonobstructive CAD, Hx Takotsubo cardiomyopathy, COPD, Former IVDA/Polysubstance abuse on subutex chronic daily regimen w/ Hx Hepatitis C, Hx NH lymphoma in remission, Hypothyroidism, Rheumatoid arthritis, Anxiety and Depression/Bipolar disorder who presents to the [facility] ED on 06/21/21 with history of general malaise, fatigue, congestion with upper respiratory type symptoms with administration on day of presentation Robitussin following which he became shaky and noted onset of pleuritic chest discomfort in the midsternal region that radiated also to his right chest prompting ED evaluation. Patient rated his discomfort initially 8/10-->4/10 following NG administration. His symptoms in the ED did improve however he reports still having some mild chest discomfort, chest x-ray with no acute cardiopulmonary findings. Work-up in the ED included T96.6, heart rate 89, BP 151/138 with most recent repeat 122/71 following NG administration, respiratory rate 16, 96 to 98% on room air, CBC with WC 16.4, hemoglobin 15.3, platelet 358 with left shift, BMP with potassium 3.2, glucose 154, TSH 6.98, lithium 0.8, high-sensitivity troponin initial 7 with repeat delta 6, EKG with sinus rhythm with normal axis with T wave inversion in lead III although difficult as patient is tremulous with no significant change from prior EKG 09/22/2020 however repeat has T wave inversions in precordial leads. NG administered in the ED with improvement of pain from 8-->4. [facility] Medical History Acute ST elevation myocardial infarction (STEMI) of inferior wall (06/12/19) Acute systolic CHF (congestive heart failure) MALINDA (acute kidney injury) Amphetamine abuse Avascular necrosis of left femoral head Bacteremia Bipolar disorder Bipolar disorder Cholangitis COPD (chronic obstructive pulmonary disease) Encephalopathy Essential hypertension Hepatitis C, chronic History of non-ST elevation myocardial infarction (NSTEMI) (06/26/20) Hypothyroidism Intravenous drug abuse IVDU (intravenous drug user) NH lymphoma Nicotine dependence Non-Hodgkin lymphoma in remission Opiate abuse, continuous Rhabdomyolysis Rheumatoid arthritis Severe sepsis Takotsubo cardiomyopathy (06/2019) Home Medications montelukast 10 mg PO QHS 02/14/19 [History Last Taken 09/21/20] ergocalciferol (vitamin D2) 50,000 unit PO FR 08/29/20 [History Last Taken 09/19/20] folic acid 1 mg PO DAILY 08/29/20 [History Last Taken 09/22/20] levothyroxine 175 mcg PO DAILY 08/29/20 [History Last Taken 09/22/20] lithium carbonate 450 mg PO QHS 08/29/20 [History Last Taken 09/21/20] multivitamin with minerals 1 tablet PO DAILY 08/29/20 [History Last Taken 09/22/20] thiamine HCl (vitamin B1) 100 mg PO DAILY 08/29/20 [History Last Taken 09/22/20] olanzapine 5 mg PO TID 09/23/20 [History Last Taken 09/22/20] tamsulosin 0.4 mg PO DAILY@1730 capsule 09/29/20 [Rx Last Taken Unknown] docusate sodium [Colace] 100 mg PO DAILY PRN 01/23/21 [History Last Taken Unknown] fludrocortisone 0.1 mg PO DAILY 01/23/21 [History Last Taken Unknown] gabapentin 300 mg PO TID 01/23/21 [History Last Taken Unknown] metoprolol tartrate 12.5 mg PO DAILY 01/23/21 [History Last Taken Unknown] enoxaparin 40 mg SUBCUT DAILY #0 ml 01/29/21 [Rx Last Taken Unknown] food supplemt, lactose-reduced [Ensure Enlive] 120 ml PO 4X/DAY #0 ml 01/29/21 [Rx Last Taken Unknown] levofloxacin 750 mg PO DAILY@0600 #0 tab 01/29/21 [Rx Last Taken Unknown] Allergy/AdvReac Type Severity Reaction Status Date / Time methotrexate AdvReac Hives,Rash, Verified 06/20/21 22:00 Lesions naproxen [From Naprosyn] AdvReac Upset Verified 06/20/21 22:00 Stomach BEE VENOM Allergy Anaphylaxis Uncoded 06/20/21 22:00 ROOT BEER Allergy Hives Uncoded 06/20/21 22:00 Family History (Updated 06/21/21 @ 02:[address] Aide Gallego MD) Mother Cancer Father Cancer Surgical History facial reconstructive surgery H/O arthroscopic knee surgery H/O total hip arthroplasty History of appendectomy History of cholecystectomy History of left heart catheterization (06/12/19) Social History (Updated 06/21/21 @ 02:[address] Aide Gallego MD) household members: other details: Lives with his daughter. Smoking Status: Current every day smoker tobacco type: cigarettes Smoking packs per day: 1.5 Smoking cigarettes per day: 30.0 Years smoked: 44 Smoking pack-years: 66.00 alcohol intake: former details: Sober x 6 months (12/2020) substance use type: former substance user Date of last use: Notes clean x 4 months (03/2021) additional social history: Has not use cocaine in 5 years ROS ROS Narrative Admission Review of Systems: CONSTITUTIONAL: No weight loss, fever, + chills, weakness or fatigue. HEENT: + Congestion, rhinorrhea. Eyes: No visual loss, blurred vision, double vision or yellow sclerae. Ears, Nose, Throat: No hearing loss, sneezing, sore throat. SKIN: No rash or itching, lesions, wounds. CARDIOVASCULAR: + Chest discomfort, palpitations. No edema, orthopnea, syncopal events. RESPIRATORY: + Chronic cough which is unchanged. No shortness of breath, wheezing, hemoptysis. GASTROINTESTINAL: No anorexia, nausea, vomiting or diarrhea, abdominal pain, melena, BRBPR. GENITOURINARY: No dysuria, frequency, urgency or retention. NEUROLOGICAL: No headache, dizziness, syncope, paralysis, ataxia, numbness or tingling in the extremities, focal weakness, change in bowel or bladder control, seizure. MUSCULOSKELETAL: No muscle, back pain, joint pain or stiffness. HEMATOLOGIC: No anemia, bleeding or bruising. LYMPHATICS: No enlarged nodes. No history of splenectomy. PSYCHIATRIC: + history of depression or anxiety. ENDOCRINOLOGIC: No reports of sweating, cold or heat intolerance. No polyuria or polydipsia. ALLERGIES: No history of asthma, hives, eczema or rhinitis. Vital Signs Vital Signs Vital Signs: 06/20/21 22:01 06/20/21 22:30 06/20/21 22:43 Temperature 96.6 F L Temperature Source Temporal Pulse Rate 89 Respiratory Rate 16 Respiratory Effort Normal Blood Pressure 151/138 H Blood Pressure Mean 142 Pulse Ox 96 96 Oxygen Delivery Method Room Air Room Air 06/20/21 23:16 06/21/21 00:27 06/21/21 01:16 Temperature Temperature Source Pulse Rate 80 88 101 H Respiratory Rate 18 19 H 15 Respiratory Effort Blood Pressure 131/76 H 133/88 H 130/84 H Blood Pressure Mean 94 103 99 Pulse Ox 95 92 94 Oxygen Delivery Method Room Air Room Air Room Air 06/21/21 01:25 06/21/21 01:32 06/21/21 01:37 Temperature Temperature Source Pulse Rate 79 89 97 Respiratory Rate Respiratory Effort Blood Pressure 132/81 H 117/81 H 122/71 H Blood Pressure Mean Pulse Ox Oxygen Delivery Method 06/21/21 02:03 Temperature Temperature Source Pulse Rate 91 Respiratory Rate 19 H Respiratory Effort Blood Pressure 100/66 Blood Pressure Mean 77 Pulse Ox 98 Oxygen Delivery Method Room Air Weight Weight: 148 lb Body Mass Index (BMI) 23.8 Physical Exam Narrative Physical Examination: General: Awake, alert, oriented x 3 and cooperative, seated upright in the ED bed in no apparent distress, fatigued appearing, no chest pain improved. Skin: Normal color, normal turgor, no icterus, no cyanosis. HEENT: AT/NC, EOMI, PERRLA, mildly dry MM, no carotid bruits or JVD noted. Lungs: Diminished, greater bases, moderate effort, no rales, ronchi or wheezing. Heart: Regular rate and rhythm; no gallop, rub audible. Abdomen: Soft, NTTP, ND, normal BS, no HSM. Extremities: No cyanosis, clubbing, or edema. Neurological: Patient awake, alert, oriented as noted, cognitive function intact; pupils equally reactive to light and accommodation, cranial nerves II-XII grossly normal, moving all 4 extremities, no focal deficits, strength mildly global decrease secondary to acute presentation. Psychiatric: Affect appears fatigued otherwise normal, no acute evidence of depressive or anxiety feelings. Results Lab / Micro Data Result Diagrams: 06/20/21 22:20 06/20/21 22:20 Labs: Laboratory Results - last 24 hr 06/20/21 22:20: WBC 16.4 H, RBC 5.34, Hgb 15.3, Hct 46.7, MCV 87.5, MCH 28.7, MCHC 32.8, RDW Std Deviation 42.2, RDW Coeff of Re 13.2, Plt Count 358, MPV 8.5, Immature Gran % (Auto) 0.600, Neut % (Auto) 75.8 H, Lymph % (Auto) 16.1 L, [place] % (Auto) 5.9, Eos % (Auto) 1.2, Baso % (Auto) 0.4, Absolute Neuts (auto) 12.4 H, Absolute Lymphs (auto) 2.63, Nucleated RBC % 0 06/20/21 22:20: Sodium 137, Potassium 3.2 L, Chloride 107, Carbon Dioxide 25.0, Anion Gap 5, BUN 8, Creatinine 0.98, Estim Creat Clear Calc 77.76, Est GFR (MDRD) Af Amer 102, Est GFR (MDRD) Non-Af 85, BUN/Creatinine Ratio 8.1 L, Glucose 154 H, Calcium 9.2, Troponin I High Sens 7, TSH 6.98 H 06/20/21 22:40: [place] 0.80 06/21/21 00:24: Troponin I High Sens 6 Micro: Microbiology 06/20/21 22:34 Interface Orders SARS-CoV-2 Antigen (Rapid) - Final Rhythm Strip Rhythm Strip: Sinus Rhythm Rate: 89 Ectopy: None Radiology Impression Chest X-Ray 06/20/21 22:26 IMPRESSION: Normal x-ray examination of the chest. Electronically Signed: Ta Mesa MD at 23:00 EST , Service support , Assessment & Plan Assessment/Plan (1) Chest pain: QUALIFIERS: Chest pain type: unspecified Qualified Code(s): R07.9 - Chest pain, unspecified PLAN: The patient is a 56 y/o M w/ PMHx: Nonobstructive CAD, Hx Takotsubo cardiomyopathy, COPD, Former IVDA/Polysubstance abuse on subutex chronic regimen w/ Hx Hepatitis C, Hx NH lymphoma in remission, Hypothyroidism, Rheumatoid arthritis, Anxiety and Depression/Bipolar disorder who presents to the [facility] ED on 06/21/21 with history of general malaise, fatigue, congestion with upper respiratory type symptoms with administration on day of presentation Robitussin following which he became shaky and noted onset of pleuritic chest discomfort in the midsternal region that radiated also to his right chest prompting ED evaluation. #1. Chest Pain: ED evaluation with high-sensitivity troponin initial 7 with repeat delta 6, EKG with sinus rhythm with normal axis with T wave inversion in lead III although difficult as patient is tremulous with no significant change from prior EKG 09/22/2020 however repeat has T wave inversions in precordial leads. NG administered in the ED with improvement of pain from 8-->4. Will admit to PCU, place on a monitored bed to assure no acute myocardial infarction with serial cardiac enzymes and EKGs. Will obtain D-dimer and obtain COVID PCR given atypical. If these are negative and if repeat enzymes and EKG remain unremarkable would plan Tuesday stress testing. FLP in AM. Mag pending. ASA, NG, morphine. #2. Hypokalemia: Admission K+ 3.2, magnesium level requested, supplementation given, repeat level in AM. #3. Mild hyperglycemia: Admission glucose 154, no prior diabetic history noted, will obtain A1c to be cautious and if notable transition to ADA diet with insulin sliding scale with Accu-Cheks and nutrition consultation for education and teaching. #4. Nonobstructive CAD: 06/12/2019 cardiac catheterization with no marked CAD with evidence of Takotsubo cardiomyopathy with EF at that time 25% with follow-up echocardiogram 12/31/2019 with EF 65%, resolved. #5. History of polysubstance abuse with chronic hepatitis C: Noted prior history, prior IV drug abuse as well as usage of inhaled agents clean now x 4 months, encourage continued outpatient follow-up with GI/ID. Once clarified his chronic subutex regimen will continue. #6. History of prior alcohol abuse: Currently sober now x 6 months. Encouraged continued sobriety. #7. Hypothyroidism: Continue home synthroid regimen, TSH 6.98, will obtain free T4 as could be certainly subclinical. #8. Anxiety depression/bipolar disorder: We will continue patient home lithium with normal level in the ED and olanzapine. #9. Hypertension: Continue home regimen including metoprolol with hold parameters as needed, PRN hydralazine. #10. History non-Hodgkin lymphoma: Reported history, noted to be in remission, encourage continued outpatient follow-up with oncology as needed. #11. Chronic COPD: Not on any routine inhalers, will have as needed albuterol, encourage head of bed and I-S. #12. BPH: We will continue patient on Flomax regimen. #13. DVT prophylaxis: SCDs, Lovenox. Charges/Coding Visit Charges OBSV E&M: 58144 Initial observation care L3
[2021-06-21 02:50] LABS: Procalcitonin 0.08 ng/mL (0.00-0.09)
--- NOTE | 2021-06-21 03:09 | PCS.PANDOC ---
PANDEMIC DOCUMENTATION INITIATED: Date: 01/19/2021 Time: 190
[2021-06-21 03:13] LABS: D-Dimer Quantitative (DVT/PE) 2.25 FEU/ug/m (0.27-0.49)
--- NOTE | 2021-06-21 03:33 | EKG12_ITS ---
Test Reason : CHEST PAIN ADMIT Blood Pressure : / mmHG Vent. Rate : 076 BPM Atrial Rate : 076 BPM P-R Int : 140 ms QRS Dur : 078 ms QT Int : 404 ms P-R-T Axes : -09 066 096 degrees QTc Int : 454 ms Normal sinus rhythm Nonspecific ST and T wave abnormality Abnormal ECG When compared with ECG of 22-SEP-2020 20:17, Vent. rate has decreased BY 45 BPM Nonspecific T wave abnormality now evident in Lateral leads Confirmed by LINWOOD MOHAN, GALLITO ([id number]), manager editorial LYNN DEVRIES ([id number]) on 06/23/2021 9:39:09 AM Referred By: ELIZABET Confirmed By:GALLITO PALUMBO MD
[2021-06-21] MEDS: 0.9% Normal Saline 1,000 ML 100 ML IV (03:48)
[2021-06-21] MEDS: Famotidine 20 MG Tablet PO ×3 (03:49→21:20)
[2021-06-21] MEDS: Potassium Chloride Oral Tablet 20 MEQ 40 MEQ PO (03:49)
[2021-06-21 03:50] LABS: Amphetamine Urine VISTA NEGATIVE (<1000 ng/mL); Barbiturate Urine VISTA NEGATIVE (< 200 ng/mL); Benzodiazepine Urine VISTA NEGATIVE (< 200 ng/mL); Cocaine Urine VISTA NEGATIVE (< 300 ng/mL); Ecstacy Urine VISTA NEGATIVE (< 500 ng/mL); Methadone Urine VISTA NEGATIVE (< 300 ng/mL); PCP Urine VISTA NEGATIVE (< 25 ng/mL); THC Urine VISTA NEGATIVE (< 50 ng/mL); Vista UDS pH Range 6
--- NOTE | 2021-06-21 05:15 | PCS.PANDOC ---
PANDEMIC DOCUMENTATION INITIATED: Date: 01/19/2021 Time: 190
--- NOTE | 2021-06-21 05:54 | NURSING ---
Pt says his IV line on his left hand hurts with the fluids running, refuses to continue IV fluids. Explain the needs of rehydration to help us place another IV line and get CTA done. Pt continues to refuse IV fluids at this time. Notified .
[2021-06-21] MEDS: Gabapentin 300 MG Capsule PO ×3 (06:50→21:20)
[2021-06-21] MEDS: Levothyroxine 175 MCG Tablet PO (06:50)
--- NOTE | 2021-06-21 09:40 | PN.HOSP_ITS ---
Subjective Subjective Seen and examined. Patient sitting in bed no distress noted. Patient expresses concern over not receiving Subutex. Patient assured that his this medication will be reordered. Home medication list reconciled. Objective Data Objective Data Vital Signs: Vital Signs Temp Pulse Resp BP Pulse Ox 98.2 F 83 18 114/75 99 06/21/21 03:44 06/21/21 07:43 06/21/21 03:44 06/21/21 03:44 06/21/21 03:44 Oxygen Delivery Method Room Air Weight: 149 lb 8 oz Body Mass Index (BMI) 23.4 Intake & Output: Intake and Output for Last 24 Hours 06/19/21 06/20/21 06/21/21 23:59 23:59 23:59 Intake Total 1000 / 1000 Output Total 1050 / 1050 Balance -50 / -50 Lab / Micro Data Result Diagrams: 06/20/21 22:20 06/20/21 22:20 Labs: Laboratory Results - last 24 hr 06/20/21 22:20: WBC 16.4 H, RBC 5.34, Hgb 15.3, Hct 46.7, MCV 87.5, MCH 28.7, MCHC 32.8, RDW Std Deviation 42.2, RDW Coeff of Re 13.2, Plt Count 358, MPV 8.5, Immature Gran % (Auto) 0.600, Neut % (Auto) 75.8 H, Lymph % (Auto) 16.1 L, [place] % (Auto) 5.9, Eos % (Auto) 1.2, Baso % (Auto) 0.4, Absolute Neuts (auto) 12.4 H, Absolute Lymphs (auto) 2.63, Nucleated RBC % 0 06/20/21 22:20: Sodium 137, Potassium 3.2 L, Chloride 107, Carbon Dioxide 25.0, Anion Gap 5, BUN 8, Creatinine 0.98, Estim Creat Clear Calc 77.76, Est GFR (MDRD) Af Amer 102, Est GFR (MDRD) Non-Af 85, BUN/Creatinine Ratio 8.1 L, Glucose 154 H, Calcium 9.2, Troponin I High Sens 7, TSH 6.98 H 06/20/21 22:20: D-Dimer Quant (PE/DVT) 2.25 H* 06/20/21 22:40: [place] 0.80 06/20/21 22:40: Procalcitonin 0.08 06/21/21 00:24: Troponin I High Sens 6 06/21/21 00:24: Magnesium 2.0 06/21/21 02:28: COVID-19 (YULIYA) Not Detected 06/21/21 03:18: Urine Opiates Screen NEGATIVE, Urine Methadone Screen NEGATIVE, Ur Barbiturates Screen NEGATIVE, Ur Phencyclidine Scrn NEGATIVE, Ur Amphetamines Screen NEGATIVE, U Methamphetamin-MDMA NEGATIVE, U Benzodiazepines Scrn NEGATIVE, Urine Cocaine Screen NEGATIVE, U Cannabinoids Screen NEGATIVE, Ur Drug Screen Comment Micro: Microbiology 06/20/21 22:34 Interface Orders SARS-CoV-2 Antigen (Rapid) - Final Radiography Diagnostic Testing: Radiology Impression Chest X-Ray 06/20/21 22:26 IMPRESSION: Normal x-ray examination of the chest. Electronically Signed: Ta Mesa MD at 23:00 EST , Service support , Rhythm Strip Rhythm Strip: Sinus Rhythm Rate: 89 Ectopy: None Physical Exam Const alert, oriented x3 and no apparent distress HEENT head/scalp atraumatic and moist oral mucous membranes Head and Scalp: normocephalic Eyes conjunctivae normal and no scleral icterus Neck full ROM and supple General: trachea midline Resp normal respiratory effort, normal air movement and clear to auscultation bilaterally Effort and Inspection: able to speak in complete sentences and symmetric chest movement Cardio regular rate, regular rhythm, S1 normal heart sound and S2 normal heart sound GI normal to inspection, nondistended, normoactive bowel sounds, soft to palpation and non-tender Extremity normal to inspection, full ROM and no clubbing, cyanosis or edema Peripheral Pulses: Yes pulses 2+ throughout Skin no rashes or lesions noted, no wounds and skin turgor normal Neuro oriented x3, moves all extremities, no focal motor deficits and no sensory deficits noted Sensorium / Orientation: awake and alert Speech: speech normal Psych affect normal Assessment & Plan Assessment/Plan (1) Abnormal ECG: (2) Chest pain: QUALIFIERS: Chest pain type: unspecified Qualified Code(s): R07.9 - Chest pain, unspecified PLAN: Patient is a 56-year-old male with a history of polysubstance abuse who presents with chest pain which was improved with nitroglycerin administration. Initial troponin and repeat negative, stress test planned for 06/22/2021. 1. Chest pain -Continue nitroglycerin as needed -Troponin x2 negative -CTA ordered however patient unable to have CTA at this time due to IV access. We will rehydrate patient with IV fluids and attempt larger IV placement. -Nuclear stress test ordered for Tuesday morning 2. Hypokalemia -Admission potassium 3.2, replaced overnight we will repeat in a.m. -Magnesium normal 3. Non-obstructive CAD -Cardiac catheterization on 06/12/2019 showed no marked CAD, evidence of Takotsubo cardiomyopathy -EF on 12/24/2019. Follow-up echo 12/31/2019 shows EF 65% 4. History of polysubstance abuse -Patient has been sober x1 year -Hep C positive -Continue Subutex regimen DVT prophylaxis-SCDs, Lovenox This patient was seen by SHADE Maynard under the supervision of Dr. Salazar 9 minutes spent in clinical coordination of patient's plan of care.
--- NOTE | 2021-06-21 09:48 | NURSING ---
data input clerk notified that ct scan can not be done due to being unable to obtain iv access after multiple tries by multiple people
[2021-06-21 10:35] LABS: Absolute Lymphocyte Count 2.33 X10^3/uL (0.83-4.51); Absolute Neutrophil Count 10.1 X10^3/uL (2.0-7.7); Basophil# 0.03 X10^3/uL; Basophil% 0.2 % (0-1); Eosinophils% 0.8 % (0-5); Hematocrit 43.7 % (40-54); Lymphocyte # 2.33 X10^3/ul (0.83-4.51); Lymphocyte % 17.7 % (19-41); Mean Corpuscular Hgb 28.1 pg (27.0-32.0); Mean Corpuscular Volume 87.8 fL (80-94); Mean Platelet Vol. 8.5 fl (6.2-12.0); Monocyte# 0.56 X10^3/uL; Monocyte% 4.2 % (0-10); NRBC Flagged by Analyzer 0 % (0-5); Neutrophil # 10.11 X10^3/uL (2.7-7.7); Neutrophil % 76.7 % (47-70); Platelet Count 353 K/mm3 (150-450); RBC Distribution Width CV 13.3 % (11.6-14.6); RBC Distribution Width SD 42.7 fl (35.1-43.9); Red Blood Count 4.98 M/mm3 (4.6-6.2); White Blood Count 13.2 K/mm3 (4.4-11.0)
[2021-06-21 10:59] LABS: ALB/GLOB Ratio 0.8 RATIO (0.9-2.4); AST(SGOT) 11 U/L (15-37); Alanine Aminotransfer ALT/SGPT 19 U/L (16-61); Alkaline Phosphatase 99 U/L (45-117); Anion Gap 5 (5-15); BUN 6 mg/dL (7-18); BUN/Creat Ratio 8.4 RATIO (10-20); Calcium,Total 8.5 mg/dL (8.5-10.1); Chloride 113 mmol/L (98-107); Creatinine, Serum 0.71 mg/dL (0.70-1.30); EST Glomerular Filtration Rate 123 mL/min (>60); Est Glom Filt Rate - Afr Amer 148 mL/min (>60); Globulin 3.9 g/dL (2.2-4.2); Glucose 120 mg/dL (74-106); Potassium 4.1 mmol/L (3.5-5.1); Protein, Total 6.9 g/dL (6.4-8.2); Sodium Level 142 mmol/L (136-145); T4 Free Direct 1.16 ng/dL (0.76-1.46)
[2021-06-21 11:03] LABS: Troponin-I HS 6 pg/mL (3.0-78.0)
[2021-06-21] MEDS: BUPRENORPHINE HCL/NALOXONE HCL 1 EACH TAB.SUBL SL ×2 (11:40)
[2021-06-21] MEDS: Fluticasone Propion/Salmeterol 250-50 Inhaler 1 PUFF INHALATION ×2 (11:43→21:19)
[2021-06-21] MEDS: Dicyclomine 10 MG Capsule PO (13:05)
[2021-06-21] MEDS: Cefadroxil 500 MG CAPSULE PO ×2 (13:07→21:20)
[2021-06-21] MEDS: Loperamide 2 MG Capsule PO (15:06)
[2021-06-21] MEDS: OLANZapine 5 MG/TAB TAB.RAPDIS PO ×2 (15:06→21:20)
[2021-06-21] MEDS: Enoxaparin 40 MG/0.4 ML Syringe SC (15:07)
[2021-06-21] MEDS: Tamsulosin HCl 0.4 MG Capsule PO (21:19)
[2021-06-21] MEDS: Montelukast 10 MG Tablet PO (21:21)
[2021-06-22 01:00] VITALS: PULSE 74
[2021-06-22 01:50] VITALS: BP 126/80; PULSE 79; RESP 16; TEMP 37; O2SAT 97
[2021-06-22] MEDS: Gabapentin 300 MG Capsule PO ×2 (06:56→13:12)
[2021-06-22] MEDS: OLANZapine 5 MG/TAB TAB.RAPDIS PO ×2 (06:57→13:12)
[2021-06-22] MEDS: Levothyroxine 175 MCG Tablet PO (07:04)
[2021-06-22 07:17] VITALS: PULSE 88
[2021-06-22 08:21] LABS: Cholesterol 129 mg/dL (200); High Density Lipoprotein 42 mg/dL; Triglycerides 122 mg/dL; Very Low Density Lipoprotein 24 mg/dL (5-40)
[2021-06-22] MEDS: BUPRENORPHINE HCL/NALOXONE HCL 1 EACH TAB.SUBL SL (10:00)
[2021-06-22 10:34] VITALS: BP 115/79; PULSE 81; RESP 15; TEMP 36.1; O2SAT 97
[2021-06-22] MEDS: Cefadroxil 500 MG CAPSULE PO (10:41)
[2021-06-22] MEDS: Fluticasone Propion/Salmeterol 250-50 Inhaler 1 PUFF INHALATION (10:44)
[2021-06-22] MEDS: Famotidine 20 MG Tablet PO (10:53)
[2021-06-22] MEDS: Enoxaparin 40 MG/0.4 ML Syringe SC (10:53)
--- NOTE | 2021-06-22 11:05 | STRESSREP ---
Stress Test Report Former allergic myocardial perfusion stress test. 56-year-old man with a history of coronary artery disease. And chest pain. Stress protocol: Resting EKG demonstrates normal sinus rhythm with a rate of 75 bpm normal intervals noted. Resting blood pressure is 116/80 mmHg. 0.4 mg of regadenoson was infused per usual protocol followed by rapid intravenous saline flush injection continuous EKG monitoring was performed. The maximum heart rate attained was 122 bpm which was 73% of maximum predicted heart rate the maximum workload was 1 metabolic equivalent. At rest there were no ST or T wave changes noted to suggest abnormal flow reserve and at peak infusion nonspecific ST changes were noted with did not meet the criteria for ischemia. No clinical angina was noted. Myocardial perfusion protocol. 12.0 mCi of technetium 99m sestamibi was injected at rest. 0.4 mg of regadenoson was infused per usual protocol. At peak infusion 32.9 mCi of technetium 99m sestamibi was injected stress images were obtained stress and rest images were reconstructed and compared in the short axis vertical long and horizontal long axis. Gated images were also obtained. Perfusion SPECT analysis: Review of the stress images demonstrate normal uptake of tracer noted in all areas of the myocardium. The resting images similarly demonstrate normal perfusion pattern noted in all areas of the myocardium. No areas of reversibility are noted to suggest ischemia and no previous infarct is noted. Gated SPECT analysis: The gated ejection fraction is noted to be 60%. Conclusion: Normal pharmacologic myocardial perfusion stress test. Preserved ejection fraction.
--- NOTE | 2021-06-22 14:17 | PCM.DC ---
Documented by User: SHADE Maynard 06/22/21 14:22 Discharge Instructions Diet Discharge Diet: Low fat / Low cholesterol Activity Discharge Activity: Return to Normal Activity Dressing / Incision Call your doctor if you observe: Shortness of breath, Dizziness, Swelling in the ankles, Chest pain and Increased palpitations (irregular heartbeat) Follow Up Care Test Results: Test results from this visit will be discussed in further detail at your follow-up appointment, if applicable. Discharge Plan Admission Admit Date/Time: 06/21/21 02:12 Primary Reason for Your Visit: Chest pain Attending Provider: Anthony Otero Primary Care Provider: Vi Velásquez Discharge Orders/Prescriptions Prescriptions: Continued montelukast 10 MG tablet 10 mg PO QHS RF: 0 lithium carbonate 450 MG tablet extended release 450 mg PO QHS RF: 0 levothyroxine 150 MCG tablet 175 mcg PO DAILY RF: 0 olanzapine 5 MG tablet 5 mg PO TID RF: 0 tamsulosin 0.4 MG capsule 0.4 mg PO DAILY@1730 RF: 0 fluticasone propion-salmeterol [Wixela Inhub] 250-50 mcg/dose Blister With Device 1 inh INHALATION BID RF: 0 cefadroxil 500 mg Capsule 500 mg PO BID RF: 0 dicyclomine 10 mg Capsule 10 mg PO BID PRN (Reason: IBS) RF: 0 Zubsolv 11.4-2.9 mg Tablet, Sublingual 1 tab SUBLINGUAL DAILY RF: 0 Referrals / Follow Up: Vi Velásquez MD [Primary Care Provider] - Disposition Disposition (needs filled in before D/C Order can be placed): Home, Self Care Documented by User: Dr. Anthony Otero MD 06/22/21 14:51 Discharge Plan Admission Admit Date/Time: 06/21/21 02:12 Primary Reason for Your Visit: Chest pain Attending Provider: Kotsonis,Anthony F Primary Care Provider: Vi Velásquez Discharge Orders/Prescriptions Prescriptions: Continued montelukast 10 MG tablet 10 mg PO QHS RF: 0 lithium carbonate 450 MG tablet extended release 450 mg PO QHS RF: 0 levothyroxine 150 MCG tablet 175 mcg PO DAILY RF: 0 olanzapine 5 MG tablet 5 mg PO TID RF: 0 tamsulosin 0.4 MG capsule 0.4 mg PO DAILY@1730 RF: 0 fluticasone propion-salmeterol [Wixela Inhub] 250-50 mcg/dose Blister With Device 1 inh INHALATION BID RF: 0 cefadroxil 500 mg Capsule 500 mg PO BID RF: 0 dicyclomine 10 mg Capsule 10 mg PO BID PRN (Reason: IBS) RF: 0 Zubsolv 11.4-2.9 mg Tablet, Sublingual 1 tab SUBLINGUAL DAILY RF: 0 Referrals / Follow Up: Vi Velásquez MD [Primary Care Provider] - Disposition Disposition (needs filled in before D/C Order can be placed): Home, Self Care
--- NOTE | 2021-06-22 14:22 | DS.PCM_ITS ---
Documented by User: SHADE Maynard 06/22/21 14:27 Providers Date of Admission: 06/21/21 Primary Care Physician: Dr. Vi Velásquez MD Reason For Visit: CHEST PAIN Diagnosis Discharge Diagnosis (1) Abnormal ECG: Status: Acute Code(s): R94.31 - Abnormal electrocardiogram [ECG] [EKG] (2) Chest pain: Status: Acute Code(s): R07.9 - Chest pain, unspecified Qualifiers: Chest pain type: unspecified Qualified Code(s): R07.9 - Chest pain, unspecified Medications at Discharge Home Medications montelukast 10 mg PO QHS 02/14/19 levothyroxine 175 mcg PO DAILY 08/29/20 lithium carbonate 450 mg PO QHS 08/29/20 olanzapine 5 mg PO TID 09/23/20 tamsulosin 0.4 mg PO DAILY@1730 capsule 09/29/20 Zubsolv 1 tab SUBLINGUAL DAILY 06/21/21 cefadroxil 500 mg PO BID 06/21/21 dicyclomine 10 mg PO BID PRN 06/21/21 fluticasone propion-salmeterol [Wixela Inhub] 1 inh INHALATION BID 06/21/21 Hospital Course Operations None Procedures Stress test Summary of Care Provided Hospital Course: Patient is a 56-year-old male who presented to the ER with c omplaints of chest pain. Patient underwent stress test today which was negative. Patient was noted to have elevated D-dimer upon admission however patient was not able to have a large enough IV placed to complete CT scan. VQ scan was ordered and subsequently nuclear medicine contacted this provider and informed me that the VQ scan would not be able to be done until Tuesday at the earliest due to patient receiving contrast for stress test today. Discussed this plan of care with patient, patient does not want to stay until Tuesday to have VQ scan especially in the absence of tachypnea tachycardia or hypoxia. Patient's wishes for discharge today and follow-up outpatient with primary care provider. Patient instructed to return to ER if he becomes tachycardic, tachypneic, has increased chest pain or become short of breath. Upon review patient has been noted to have abnormal EKGs in the past. Patient's troponins were 7, 6, 6. This patient was seen by Kelly Gastelum NP-C under the supervision of Dr. Otero. 13 minutes spent in clinical coordination of patient's plan of care. Physical Exam Const alert, oriented x3 and no apparent distress HEENT head/scalp atraumatic and moist oral mucous membranes Eyes conjunctivae normal and no scleral icterus Neck full ROM and supple General: trachea midline Resp normal respiratory effort, normal air movement and clear to auscultation bilaterally Effort and Inspection: able to speak in complete sentences and symmetric chest movement Cardio regular rate, regular rhythm, S1 normal heart sound and S2 normal heart sound GI normal to inspection, nondistended, normoactive bowel sounds, soft to palpation and non-tender Extremity normal to inspection, full ROM and no clubbing, cyanosis or edema Skin no rashes or lesions noted, no wounds and skin turgor normal Neuro oriented x3, moves all extremities, no focal motor deficits and no sensory deficits noted Sensorium / Orientation: awake and alert Speech: speech normal Psych affect normal Weight / BMI Weight Weight: 149 lb 8 oz Body Mass Index (BMI) 23.4 ABG / Lab / Microbiology Data Result Diagrams: 06/21/21 10:15 06/21/21 10:15 Laboratory: Laboratory Results - last 24 hr 06/22/21 07:36: Triglycerides 122, Cholesterol 129, LDL Cholesterol 63, VLDL Cholesterol 24, HDL Cholesterol 42 Microbiology: Microbiology 06/20/21 22:34 Interface Orders SARS-CoV-2 Antigen (Rapid) - Final D/C Instructions Discharge Diet: Low fat / Low cholesterol Call your doctor if you observe: Shortness of breath, Dizziness, Swelling in the ankles, Chest pain and Increased palpitations (irregular heartbeat) Meaningful Use Info Meaningful Use Diagnoses (Choose all that apply): None applicable Discharge Plan Admission Admit Date/Time: 06/21/21 02:12 Primary Reason for Your Visit: Chest pain Attending Provider: Anthony Otero Primary Care Provider: Vi Velásquez Discharge Orders/Prescriptions Prescriptions: Continued montelukast 10 MG tablet 10 mg PO QHS RF: 0 lithium carbonate 450 MG tablet extended release 450 mg PO QHS RF: 0 levothyroxine 150 MCG tablet 175 mcg PO DAILY RF: 0 olanzapine 5 MG tablet 5 mg PO TID RF: 0 tamsulosin 0.4 MG capsule 0.4 mg PO DAILY@1730 RF: 0 fluticasone propion-salmeterol [Wixela Inhub] 250-50 mcg/dose Blister With Device 1 inh INHALATION BID RF: 0 cefadroxil 500 mg Capsule 500 mg PO BID RF: 0 dicyclomine 10 mg Capsule 10 mg PO BID PRN (Reason: IBS) RF: 0 Zubsolv 11.4-2.9 mg Tablet, Sublingual 1 tab SUBLINGUAL DAILY RF: 0 Referrals / Follow Up: Vi Velásquez MD [Primary Care Provider] - Disposition Disposition (needs filled in before D/C Order can be placed): Home, Self Care Documented by User: Dr. Anthony Otero MD 06/22/21 14:55 Providers Date of Admission: 06/21/21 Reason For Visit: CHEST PAIN Medications at Discharge Home Medications montelukast 10 mg PO QHS 02/14/19 levothyroxine 175 mcg PO DAILY 08/29/20 lithium carbonate 450 mg PO QHS 08/29/20 olanzapine 5 mg PO TID 09/23/20 tamsulosin 0.4 mg PO DAILY@1730 capsule 09/29/20 Zubsolv 1 tab SUBLINGUAL DAILY 06/21/21 cefadroxil 500 mg PO BID 06/21/21 dicyclomine 10 mg PO BID PRN 06/21/21 fluticasone propion-salmeterol [Wixela Inhub] 1 inh INHALATION BID 06/21/21 ABG / Lab / Microbiology Data Result Diagrams: 06/21/21 10:15 06/21/21 10:15 Discharge Plan Admission Admit Date/Time: 06/21/21 02:12 Primary Reason for Your Visit: Chest pain Attending Provider: Anhtony Otero Primary Care Provider: Vi Velásquez Discharge Orders/Prescriptions Prescriptions: Continued montelukast 10 MG tablet 10 mg PO QHS RF: 0 lithium carbonate 450 MG tablet extended release 450 mg PO QHS RF: 0 levothyroxine 150 MCG tablet 175 mcg PO DAILY RF: 0 olanzapine 5 MG tablet 5 mg PO TID RF: 0 tamsulosin 0.4 MG capsule 0.4 mg PO DAILY@1730 RF: 0 fluticasone propion-salmeterol [Wixela Inhub] 250-50 mcg/dose Blister With Device 1 inh INHALATION BID RF: 0 cefadroxil 500 mg Capsule 500 mg PO BID RF: 0 dicyclomine 10 mg Capsule 10 mg PO BID PRN (Reason: IBS) RF: 0 Zubsolv 11.4-2.9 mg Tablet, Sublingual 1 tab SUBLINGUAL DAILY RF: 0 Referrals / Follow Up: Vi Velásquez MD [Primary Care Provider] - Disposition Disposition (needs filled in before D/C Order can be placed): Home, Self Care Charges/Coding Addendum Addendum: Dr. Otero: I personally reviewed the chart and examined the patient, and agree with the above findings. 56-year-old male with history of IV drug use presented to the hospital with chest pain. He has been coughing lately, COVID test has been negative. He denies that the chest pain he has with palpation reproduces the pain he has been feeling. He had a stress test today which was negative for any type of ischemia however he did have an elevated D-dimer on admission however given his previous IV drug use it would very difficult to get a large enough IV to be able to do a contrasted study therefore we did try to get a VQ scan done today however since he was just given contrast for his stress test he would have to wait until Tuesday. I discussed with him the risk and benefits of discharge and he expressed understanding of the risks and still wanted to go home. Of note he is not tachycardic or tachypneic or short of breath and he is not on oxygen therefore I do feel like a PE is a lower threshold diagnosis. He did not want to stay until Tuesday just to get a VQ scan therefore I do recommend that he follow-up with his PCP in 3 to 5 days and if he has continued chest pain would recommend evaluation with a VQ scan as well as evaluation with cardiology as he states that several years ago he had a cardiac catheterization which demonstrated a Takotsubo's cardiomyopathy. He does state that cardiology said that he had complete recovery and he did not need to see them any longer. General: Alert, Oriented x3, Cooperative, No apparent distress HEENT: Atraumatic, PERRLA, EOMI, Normocephalic, multiple facial tattoos Oral: Moist Mucosa Neck: Supple, No JVD Lungs: Clear to auscultation, Normal air movement, No rhonchi, No wheeze, No rales Cardiovascular: Regular rate, Regular Rhythm, Normal S1, Normal S2, No murmurs Chest: Mild tenderness to palpation left lower sternal border Abdomen: Soft, Non Tender, Non-Distended, No Hepato-splenomegaly Extremities: No edema, Capillary Refill Less than 3 Seconds Skin: No rashes, No breakdown Musculoskeletal: No Tenderness to Palpation of Joints or Extremities Neurological: Cranial nerves II-XII grossly intact, Motor Exam 5/5 strength throughout, Sensory exam intact to light touch and pain Psych/Mental Status: Normal Affect, Appropriate Clinical care time spent evaluating patient, discussing care with providers, jim rt review: 35 minutes Visit Charges Inpatient E&M: [id number] [facility]
== END 2021-06-22 14:22 | disposition home or self-care (01) ==
LOC: ED 22:38 → PCU 06-21 02:48
PROVIDERS: Internal Medicine; Admitting Provider Family Medicine; Emergency Provider Emergency Medicine; PCP Student in an Organized Health Care Education/Training Program; Visit Provider Family Medicine
DX: R07.89 Other chest pain (principal); C85.90 Non-Hodgkin lymphoma, unspecified, unspecified site; M06.9 Rheumatoid arthritis, unspecified; J44.9 Chronic obstructive pulmonary disease, unspecified; F31.9 Bipolar disorder, unspecified; B18.2 Chronic viral hepatitis C; F17.210 Nicotine dependence, cigarettes, uncomplicated; R94.31 Abnormal electrocardiogram [ECG] [EKG]; F41.9 Anxiety disorder, unspecified; I10 Essential (primary) hypertension; I25.2 Old myocardial infarction; Z79.899 Other long term (current) drug therapy; Z79.890 Hormone replacement therapy; Z79.51 Long term (current) use of inhaled steroids; E87.6 Hypokalemia; R73.9 Hyperglycemia, unspecified; N40.0 Benign prostatic hyperplasia without lower urinary tract symptoms
CPT/HCPCS: 36415; 71045; 78452; 80048; 80053; 80061; 80178; 80307; 83735; 84145; 84439; 84443; 84484; 85025; 85379; 87426; 87635; 93005; 93017; 96360; 96361; 96372; 97802; 99218; 99251; 99285; 99406; A9500; J7030; A4216; G0378; G0463; J2785; U0003; U0005

== ENCOUNTER → 2022-01-19 | Outpatient (CLI) | payer MEDICAID, SELFPAY ==
--- NOTE | 2022-01-19 15:11 | RAD_ITS ---
INDICATION: PAIN -- order states upright of abd EXAMINATION/TECHNIQUE: X-RAY - XR Abdomen 1 View COMPARISON: CT September 23, 2020 FINDINGS: BOWEL GAS PATTERN: Non-obstructive. Large colonic stool burden. No focal bowel distention. Pneumobilia projects of the medial left liver. Cholecystectomy clips present. FREE AIR: Not well assessed on a single supine view. ORGANOMEGALY: Not seen. CALCIFICATIONS: Right upper quadrant nonspecific calcifications or clips. LOWER CHEST: No acute pathology. BONES AND SOFT TISSUES: No acute pathology. Left hip total arthroplasty without evidence of hardware failure or instability. Focal sclerosis in the right femoral head compatible with avascular necrosis, without subchondral collapse. Mild L3-4 L4-5 facet arthropathy with disc height loss RAD/Abdomen Single View IMPRESSION: Large stool burden as can be seen with constipation. Non-obstructive bowel gas pattern. Chronic pneumobilia. Sequela of right femoral head avascular necrosis Electronically Signed: Bal Wu MD at 7:51 EDT ,
[2022-01-19 17:51] LABS: Hematocrit 41.2 % (40-54); Hemoglobin 13.3 g/dL (13.0-16.5); Mean Corp Hgb Conc 32.3 g/dL (32-36); Mean Corpuscular Volume 99.3 fL (80-94); Mean Platelet Vol. 9.1 fl (6.2-12.0); Platelet Count 347 K/mm3 (150-450); RBC Distribution Width CV 14.3 % (11.6-14.6); RBC Distribution Width SD 52.9 fl (35.1-43.9); Red Blood Count 4.15 M/mm3 (4.6-6.2); White Blood Count 14.2 K/mm3 (4.4-11.0)
[2022-01-19 18:29] LABS: AST(SGOT) 13 U/L (15-37); Alanine Aminotransfer ALT/SGPT 29 U/L (16-61); Albumin, Serum 3.4 g/dL (3.2-5.0); Alkaline Phosphatase 112 U/L (45-117); Anion Gap 6 (5-15); BUN 26 mg/dL (7-18); BUN/Creat Ratio 21.8 RATIO (10-20); Calcium,Total 8.4 mg/dL (8.5-10.1); Chloride 109 mmol/L (98-107); Creatinine, Serum 1.19 mg/dL (0.70-1.30); EST Glomerular Filtration Rate 68 mL/min (>60); Est Glom Filt Rate - Afr Amer 82 mL/min (>60); Globulin 3.4 g/dL (2.2-4.2); Glucose 84 mg/dL (74-106); Protein, Total 6.8 g/dL (6.4-8.2); Sodium Level 138 mmol/L (136-145)
== END | disposition home or self-care (01) ==
PROVIDERS: PCP Student in an Organized Health Care Education/Training Program; Referring Provider Internal Medicine Gastroenterology; Visit Provider Internal Medicine Gastroenterology
DX: K59.00 Constipation, unspecified (principal); B19.20 Unspecified viral hepatitis C without hepatic coma
CPT/HCPCS: 36415; 74018; 80053; 85027; 87522; 87902

== ENCOUNTER → 2023-09-15 | Outpatient (CLI) | payer MEDICAID, SELFPAY ==
--- NOTE | 2023-09-15 10:51 | ECHOD_ITS ---
Reason For Study: DYSPNEA Procedure This was a 2D Doppler, Color Flow transthoracic echocardiogram. The study was technically difficult. PT did not want an IV for Definity. Exam performed in department. Left Ventricle Normal LV size. Left ventricular systolic function is normal. Stage 1 diastolic dysfunction. The left ventricular ejection fraction is 65 %. No regional wall motion abnormalities noted. Right Ventricle Normal RV size. Normal systolic function. Atria Normal left atrium. Normal right atrium. Mitral Valve Normal mitral valve. Tricuspid Valve Normal tricuspid valve. Pulmonic Valve The pulmonic valve is not well visualized. Great Vessels Normal aortic root. The pulmonary artery is normal size. Pericardium/Pleural No pericardial effusion. MMode/2D Measurements & Calculations LVIDd: 4.7 cm IVSd: 1.0 cm Ao root diam: 3.1 cm LVIDs: 3.4 cm LVPWd: 1.0 cm FS: 27.8 % LAV(MOD-bp): 42.4 ml LVAd ap4: 26.9 cm2 LVAd ap2: 21.9 cm2 LAV(MOD-bp) Indexed: 22.1 ml/m2 LVLd ap4: 7.6 cm LVLd ap2: 7.5 cm LAV(MOD-sp2): 40.2 ml EDV(MOD-sp4): 80.5 ml EDV(MOD-sp2): 56.1 ml LAV(MOD-sp4): 41.5 ml EDV(sp4-el): 80.8 ml EDV(sp2-el): 53.8 ml LVAs ap4: 13.8 cm2 LVAs ap2: 11.6 cm2 LVLs ap4: 6.1 cm LVLs ap2: 6.2 cm ESV(MOD-sp4): 28.5 ml ESV(MOD-sp2): 20.0 ml ESV(sp4-el): 26.4 ml ESV(sp2-el): 18.5 ml EF(MOD-sp4): 64.6 % EF(MOD-sp2): 64.4 % EF(sp4-el): 67.4 % SV(MOD-sp4): 52.0 ml SV(MOD-sp2): 36.1 ml SV(sp4-el): 54.4 ml LA dimension(2D): 3.5 cm LA A4 area: 16.8 cm2 Time Measurements MV dec time: 0.15 sec Doppler Measurements & Calculations MV E max jerson: 50.6 cm/sec Lat Peak E' Jerson: 6.9 cm/sec Med Peak E' Jerson: 8.1 cm/sec MV A max jerson: 61.0 cm/sec E/E' lat: 7.4 E/E' med: 6.3 MV E/A: 0.83 MV V2 max: 52.9 cm/sec MV P1/2t max jerson: 52.3 cm/sec Ao V2 max: 93.3 cm/sec MV max P.1 mmHg MV P1/2t: 61.6 msec Ao max P.5 mmHg MV V2 mean: 30.9 cm/sec MV dec slope: 248.5 cm/sec2 Ao V2 mean: 57.7 cm/sec MV mean P.44 mmHg Ao mean P.5 mmHg MV V2 VTI: 15.3 cm MVA(P1/2t): 3.6 cm2 Ao V2 VTI: 13.6 cm AV (velocity ratio): 0.94 LV V1 max: 78.5 cm/sec PA V2 max: 91.9 cm/sec LV V1 max P.5 mmHg PA V2 mean: 57.3 cm/sec LV V1 mean P.1 mmHg LV V1 mean: 50.4 cm/sec LV V1 VTI: 12.8 cm ECHO/Echo Complete Interpretation Summary Normal LV size. Left ventricular systolic function is normal. Stage 1 diastolic dysfunction. The left ventricular ejection fraction is 65 %. Ordering Physician: Lety Gamez Referring Physician: Scotty Tejeda Performed By: Becky Messer RDCS, RVT
== END | disposition home or self-care (01) ==
LOC: CVS 10:50
PROVIDERS: PCP Family Medicine; Referring Provider Nurse Practitioner Gerontology; Visit Provider Nurse Practitioner Gerontology
DX: R06.09 Other forms of dyspnea (principal)
CPT/HCPCS: 93306

== ENCOUNTER 2023-12-14 10:10 | Emergency (ER) | payer MEDICAID, SELFPAY ==
[2023-12-14] VITALS (38 sets, daily range): BP systolic 95–132; BP diastolic 59–88; PULSE 76–96; RESP 10–23; TEMP 36.4–36.7; O2SAT 91–98; BMI 27.6
--- NOTE | 2023-12-14 10:29 | CT_ITS ---
STUDY: CT ABDOMEN AND PELVIS WITH CONTRAST REASON FOR EXAM: Male, 58 years old. adominal pain RADIATION DOSAGE (If Supplied By Facility): CTDIvol = ( 16.97 ) mGy, DLP = ( 1063.74 ) mGycm TECHNIQUE: Transaxial images were obtained from the dome of the diaphragm to the symphysis pubis without oral contrast. IV 100mL Isovue-370 was administered. Sagittal and coronal images were reconstructed. Individualized dose optimization techniques were used for this CT. COMPARISON: 04/30/2018 FINDINGS: Some left lower lobe atelectasis. Cardiomegaly. No change in the 2 cm cyst with layering calcification in the medial segment left lobe of the liver. There is non-visualization of the gallbladder, which may be secondary to either contraction or a prior cholecystectomy. Pneumobilia likely from prior sphincterotomy. Normal spleen. Normal pancreas. Normal bilateral adrenal glands. Normal right kidney. Normal left kidney. Normal visualized stomach. Small diverticulum of the superior margin of the third portion of duodenum. Status post sigmoid colectomy with a left upper quadrant colostomy. There is non-visualization of the appendix. Normal abdominal aorta. Normal inferior vena cava. Normal retroperitoneum. Domínguez catheter in the collapsed bladder. Postoperative changes of the midline in the intra-abdominal wall consistent with recent surgery. 5 cm fluid collection within the midline of the anterior abdominal wall without a clearly enhancing wall likely consistent with a postoperative phlegmon or seroma. 2 right upper quadrant surgical drains terminate in the left upper quadrant specifically the left paracolic gutter without surrounding fluid collection. Mild levoscoliosis lumbar spine. Status post left hip arthroplasty. Sclerotic areas within the superior aspect of the right femoral head worrisome for avascular necrosis. Sacral stimulator. CT/Abdomen/Pelvis W IV Cont ONLY IMPRESSION: 1. Status post recent sigmoid colectomy with a left upper quadrant colostomy with postoperative changes in the midline of the intra-abdominal wall with ill-defined areas of fluid including a 5 cm fluid collection consistent with early postoperative seroma, or phlegmon. However, 2 surgical drains in the left paracolic gutter demonstrate no evidence of intraperitoneal fluid collection. 2. Some left lower lobe atelectasis. 3. No change in 2 cm hepatic cyst with layering calcification. 4. Pneumobilia likely from prior sphincterotomy. 5. Domínguez catheter in collapsed bladder. 6. Suspect avascular necrosis of the right femoral head with a left hip arthroplasty. Electronically Signed: Erick Boles MD at 11:24 EDT ,
--- NOTE | 2023-12-14 10:31 | ED.VIS.GI ---
HPI HPI - GI History of Present Illness Chief Complaint: Abd Pain Narrative Narrative: 58-year-old male presenting from [facility] with complaint of abdominal pain. Patient had an incarcerated parastomal hernia and had this repaired by Dr. Blake Kirby at [facility] on 11/30/2023. Patient states he was given a couple days of oxycodone but after that he is only been allowed Tylenol. He states the pain is getting worse. He admits to increased ostomy output. No fevers, chills, nausea, vomiting. The facility reached out to his surgeon who recommended he come to [facility] for evaluation. Patient does have an indwelling Domínguez catheter that was placed due to urinary retention after the surgical repair. [facility] Medical History Hernia due to colostomy Hernia of abdominal wall Bipolar disorder History of non-ST elevation myocardial infarction (NSTEMI) (06/26/20) Amphetamine abuse Opiate abuse, continuous IVDU (intravenous drug user) Encephalopathy Bacteremia MALINDA (acute kidney injury) Rhabdomyolysis Severe sepsis COPD (chronic obstructive pulmonary disease) Essential hypertension Nicotine dependence Intravenous drug abuse Non-Hodgkin lymphoma in remission Acute systolic CHF (congestive heart failure) Takotsubo cardiomyopathy (06/2019) Acute ST elevation myocardial infarction (STEMI) of inferior wall (06/12/19) Cholangitis Rheumatoid arthritis Avascular necrosis of left femoral head Hepatitis C, chronic Hypothyroidism Bipolar disorder NH lymphoma Home Medications ?Medication ?Instructions ?Recorded ?Last Taken ?Type montelukast 10 mg tablet 10 mg PO QHS allergies 02/14/19 09/21/20 History lithium carbonate 450 mg 450 mg PO QHS BIPOLAR 08/29/20 09/21/20 History tablet,extended release olanzapine 5 mg tablet 5 mg PO TID psychosis 09/23/20 09/22/20 History tamsulosin 0.4 mg capsule 0.4 mg PO DAILY@1730 09/29/20 Unknown Rx acetaminophen 500 mg tablet 500 mg PO Q6H PRN pain 12/16/22 Unknown History buspirone 5 mg tablet 5 mg PO TID 12/16/22 Unknown History fluticasone propionate 50 1 spray intranasal DAILY 12/16/22 Unknown History mcg/actuation nasal spray,suspension gabapentin 300 mg capsule 300 mg PO TID 12/16/22 Unknown History melatonin 5 mg capsule 5 mg PO QHS 12/16/22 Unknown History mirtazapine 15 mg tablet (Remeron) 15 mg PO QHS 12/16/22 Unknown History mometasone-formoterol HFA 100 2 puff inhalation BID 12/16/22 Unknown History mcg-5 mcg/actuation aerosol inhaler (Dulera) nitroglycerin 0.4 mg sublingual 0.4 mg sublingual Q5-15M PRN chest 12/16/22 Unknown History tablet pain prazosin 1 mg capsule 1 mg PO QHS 12/16/22 Unknown History omeprazole 20 mg capsule,delayed 20 mg PO DAILY 06/16/23 Unknown History release prednisone 20 mg tablet 20 mg PO QODAY 06/16/23 Unknown History sulfasalazine 500 mg tablet 1 g PO BID 06/16/23 Unknown History albuterol sulfate 90 mcg/actuation 2 puff inhalation DAILY PRN 12/14/23 Unknown History aerosol inhaler shortness of breath or wheezing docusate sodium 100 mg capsule 100 mg PO BID PRN constipation 12/14/23 Unknown History duloxetine 60 mg capsule,delayed 60 mg PO DAILY 12/14/23 Unknown History release levothyroxine 75 mcg tablet 75 mcg PO DAILY 12/14/23 Unknown History Allergy/AdvReac Type Severity Reaction Status Date / Time bee venom protein (honey bee) Allergy Severe Anaphylaxis Verified 12/14/23 10:22 Food Allergies: Uncoded Allergy Hives Verified 12/14/23 10:22 methotrexate AdvReac Hives,Rash, Verified 12/14/23 10:22 Lesions naproxen (From Naprosyn) AdvReac Upset Verified 12/14/23 10:22 Stomach Family History Mother Cancer Father Cancer Surgical History History of cholecystectomy History of left heart catheterization (06/12/19) facial reconstructive surgery H/O total hip arthroplasty H/O arthroscopic knee surgery History of appendectomy Social History household members: other details: Lives with his daughter. Smoking Status: Current every day smoker tobacco type: cigarettes alcohol intake: former details: Sober x 6 months (12/2020) substance use type: former substance user Date of last use: Notes clean x 4 months (03/2021) additional social history: Has not use cocaine in 5 years ROS ROS ED Constitutional Constitutional ED: Denies chills, fever(s) or sweats Eyes Eyes: Denies blurry vision or change in vision ENT ENT ED: Denies ear pain or sore throat Cardiovascular Cardiovascular: Denies chest pain, palpitations or racing heartbeat Respiratory/Chest Respiratory/Chest: Denies cough, dyspnea or sputum Gastrointestinal Gastrointestinal: Reports abdominal pain and other Details: Increased ostomy output ; Denies diarrhea, nausea or vomiting Genitourinary Genitourinary ED: Denies dysuria, hematuria or urinary frequency Musculoskeletal Musculoskeletal: Denies arthralgias, myalgias or neck pain Integumentary Denies abscess, Abrasions or rash Neurologic Neurologic: Denies headache(s), paresthesias or weakness Psychiatric Psychiatric: Denies anxiety, depression, suicidal ideation or suicidal thoughts Endocrine Endocrinology: Denies polydipsia or polyuria EXAM Physical Exam Const Vital Signs: 12/14/23 10:12 12/14/23 10:15 12/14/23 11:15 Temperature 97.8 F 97.8 F 98.0 F Temperature Source Temporal Temporal Temporal Pulse Rate 90 91 96 Respiratory Rate 18 16 17 Blood Pressure 120/71 120/71 112/72 Blood Pressure Mean 87 87 85 Pulse Ox 91 94 96 Oxygen Delivery Method Room Air Nasal Cannula Nasal Cannula Oxygen Flow Rate (L/min) 2 2 12/14/23 12:00 12/14/23 12:00 12/14/23 12:15 Temperature 97.8 F Temperature Source Temporal Pulse Rate 93 88 89 Respiratory Rate 23 H 14 12 Blood Pressure 116/71 119/70 116/71 Blood Pressure Mean 86 85 85 Pulse Ox 95 93 96 Oxygen Delivery Method Nasal Cannula Oxygen Flow Rate (L/min) 2 12/14/23 12:30 12/14/23 12:31 12/14/23 12:45 Temperature Temperature Source Pulse Rate 87 86 Respiratory Rate 19 H 17 Blood Pressure 95/83 H 120/77 Blood Pressure Mean 90 89 Pulse Ox 92 Oxygen Delivery Method Oxygen Flow Rate (L/min) 12/14/23 13:00 12/14/23 13:15 12/14/23 13:30 Temperature Temperature Source Pulse Rate 92 86 84 Respiratory Rate 20 H 14 18 Blood Pressure 116/73 124/78 H 122/77 H Blood Pressure Mean 85 92 89 Pulse Ox 97 Oxygen Delivery Method Oxygen Flow Rate (L/min) 12/14/23 13:45 12/14/23 14:00 Temperature Temperature Source Pulse Rate 83 86 Respiratory Rate 16 19 H Blood Pressure 108/76 Blood Pressure Mean 87 Pulse Ox 97 Oxygen Delivery Method Oxygen Flow Rate (L/min) Positive well nourished HEENT Reports moist mucous membranes normocephalic and atraumatic Eyes PERRL and EOMs intact bilaterally Resp normal respiratory effort Cardio regular rate and regular rhythm GI GI Narrative: Tenderness to palpation over the left upper and left lower quadrant mostly around the stoma. No induration or rashes. The ostomy bag is empty. The stoma is well-appearing. Neuro CN's II-XII intact bilaterally and moves all extremities Sensorium / Orientation: alert Psych mental status grossly normal MDM MDM MDM Narrative Medical decision making narrative: Patient presenting with abdominal pain. Recently had parastomal hernia repair and colostomy placement. Patient also is a Domínguez catheter due to acute urinary retention after the surgery. Patient admits to pain that started yesterday on the left side of his abdomen and increased ostomy output. Patient presenting with right flank pain. Differential includes colitis, diverticulitis, gastritis, pancreatitis, constipation, UTI, pyelonephritis, calculi, ureteral calculi, obstruction, malignancy, dehydration, electrolyte abnormalities, postoperative infection. CBC will be obtained to assess white blood cell count, hemoglobin, platelets. CMP to assess renal function, electrolytes, liver function, glucose. Lipase to assess for pancreatitis. Urinalysis to assess for UTI. [place] level will be obtained since the patient is on lithium. Patient medicated with morphine, Zofran, IV fluids. CBC showed a leukocytosis of 18.5 with a left shift. Hemoglobin is 10.2 I did review his previous lab work on [facility] and on 12/07/2023 his hemoglobin was 9.6 so this is actually improved. White blood cell count was 9.95. Out of concern for infection I added blood cultures and started vancomycin and Zosyn empirically. Patient was having worsening pain so he was given a dose of Dilaudid 0.5 mg IV. Urinalysis inconsistent with infection. There is some occult blood. [place] level was 0.70. CT of the abdomen pelvis shows left upper quadrant postoperative changes in the midline of the intra-abdominal wall and ill-defined areas of fluid including a 5 cm fluid collection suspected to be postoperative seroma or phlegmon. 2 surgical drains in the left paracolic gutter demonstrate no evidence of intraperitoneal fluid. He has a 2 cm hepatic cyst and pneumobilia likely from previous sphincterotomy. The radiologist also suspect avascular necrosis of the right femoral head. Case was discussed with the surgical nurse at 11:50 AM she is going to reach out to Dr. Kirby to see if he would prefer the patient be transferred given the abnormal CT and elevated white blood cell count. Dr. Kirby did except the patient for transfer. We are pending a bed. Patient was signed out to incoming ED physician for monitoring until he can be transferred. Impression: 1. Postoperative abscess 2. Leukocytosis 3. Lactic acidosis Lab Data Attestation: I reviewed the patient's lab results. Labs: Laboratory Results - last 24 hr 12/14/23 12/14/23 10:23 10:43 WBC 18.5 H RBC 3.48 L Hgb 10.2 L Hct 35.2 L MCV 101.1 H MCH 29.3 MCHC 29.0 L RDW Std Deviation 52.4 H RDW Coeff of Re 14.2 Plt Count 710 H MPV 8.4 Immature Gran % (Auto) 0.800 Neut % (Auto) 87.1 H Lymph % (Auto) 6.2 L [place] % (Auto) 4.7 Eos % (Auto) 0.8 Baso % (Auto) 0.4 Absolute Neuts (auto) 16.1 H Absolute Lymphs (auto) 1.15 Nucleated RBC % 0 PT 13.4 INR 1.0 Sodium 140 Potassium 4.2 Chloride 107 Carbon Dioxide 30.0 Anion Gap 3 L BUN 10 Creatinine 0.81 Estim Creat Clear Calc 103.25 Est GFR (MDRD) Af Amer 126 Est GFR (MDRD) Non-Af 104 BUN/Creatinine Ratio 12.3 Glucose 104 Lactic Acid 2.1 H* Calcium 8.8 Total Bilirubin 0.30 AST 12 L ALT 13 L Alkaline Phosphatase 86 Total Protein 6.1 L Albumin 2.7 L Globulin 3.4 Albumin/Globulin Ratio 0.8 L Lipase 22 Urine Color Yellow Urine Clarity Clear Urine pH 7.0 Ur Specific [place] 1.005 Urine Protein Negative Urine Glucose (UA) Normal Urine Ketones Negative Urine Occult Blood 150 H Urine Nitrite Negative Urine Bilirubin Negative Urine Urobilinogen Normal Ur Leukocyte Esterase 25 H Urine RBC 0-5 SEEN Urine WBC 0-5 SEEN Ur Squamous Epith Cells 0 SEEN Urine Bacteria 0 SEEN Urine Mucus 0 SEEN [place] 0.70 Radiography Diagnostic Testing: Clinical Impression(s) from Imaging Studies Abdomen/Pelvis CT 12/14/23 10:29 IMPRESSION: 1. Status post recent sigmoid colectomy with a left upper quadrant colostomy with postoperative changes in the midline of the intra-abdominal wall with ill-defined areas of fluid including a 5 cm fluid collection consistent with early postoperative seroma, or phlegmon. However, 2 surgical drains in the left paracolic gutter demonstrate no evidence of intraperitoneal fluid collection. 2. Some left lower lobe atelectasis. 3. No change in 2 cm hepatic cyst with layering calcification. 4. Pneumobilia likely from prior sphincterotomy. 5. Domínguez catheter in collapsed bladder. 6. Suspect avascular necrosis of the right femoral head with a left hip arthroplasty. Electronically Signed: Erick Boles MD at 11:24 EDT , Discharge Plan Triage Chief Complaint: Abd Pain ED Provider: Morris Oh Dx/Rx/DC Orders Prescriptions: No Action Dulera 100-5 mcg/actuation HFA aerosol inhaler 2 puff inhalation BID gabapentin 300 mg capsule 300 mg PO TID melatonin 5 mg capsule 5 mg PO QHS prazosin 1 mg capsule 1 mg PO QHS mirtazapine [Remeron] 15 mg tablet 15 mg PO QHS buspirone 5 mg tablet 5 mg PO TID fluticasone propionate 50 mcg/actuation spray,suspension 1 spray intranasal DAILY Rx Instructions: administer into each nostril nitroglycerin 0.4 mg tablet, sublingual 0.4 mg sublingual Q5-15M PRN (Reason: chest pain) Rx Instructions: do not exceed 3 doses per episode acetaminophen 500 mg tablet 500 mg PO Q6H PRN (Reason: pain) prednisone 20 mg tablet 20 mg PO QODAY sulfasalazine 500 mg tablet 1 g PO BID Rx Instructions: give with food (meal/snack) omeprazole 20 mg capsule,delayed release(DR/EC) 20 mg PO DAILY montelukast 10 MG tablet 10 mg PO QHS lithium carbonate 450 MG tablet extended release 450 mg PO QHS olanzapine 5 MG tablet 5 mg PO TID tamsulosin 0.4 MG capsule 0.4 mg PO DAILY@1730 0RF albuterol sulfate 90 mcg/actuation HFA aerosol inhaler 2 puff inhalation DAILY PRN (Reason: shortness of breath or wheezing) docusate sodium 100 mg capsule 100 mg PO BID PRN (Reason: constipation) levothyroxine 75 mcg tablet 75 mcg PO DAILY duloxetine 60 mg capsule,delayed release(DR/EC) 60 mg PO DAILY Primary Care Provider: Scotty Tejeda Referrals: Scotty Tejeda MD [Primary Care Provider] - Print Language: Turkish
[2023-12-14] MEDS: 0.9% Normal Saline (1000mL) 1,000 ML 999 ML IV (10:37)
[2023-12-14] MEDS: Ondansetron 4 MG/2 ML Vial IV (10:37)
[2023-12-14] MEDS: Morphine 4 MG/ML Syringe IV (10:37)
[2023-12-14 10:39] LABS: Bacteria 0 SEEN /hpf (None Seen); Mucous, Urine 0 SEEN /hpf (<or=2+); Squamous Epithelial Cells - UA 0 SEEN /hpf (0-5)
[2023-12-14 10:43] LABS: Absolute Lymphocyte Count 1.15 X10^3/uL (0.83-4.51); Absolute Neutrophil Count 16.1 X10^3/uL (2.0-7.7); Basophil# 0.08 X10^3/uL; Basophil% 0.4 % (0-1); Eosinophil# 0.15 X10^3/uL; Eosinophils% 0.8 % (0-5); Hematocrit 35.2 % (40-54); Hemoglobin 10.2 g/dL (13.0-16.5); Lymphocyte # 1.15 X10^3/ul (0.83-4.51); Lymphocyte % 6.2 % (19-41); Mean Corpuscular Hgb 29.3 pg (27.0-32.0); Mean Corpuscular Volume 101.1 fL (80-94); Mean Platelet Vol. 8.4 fl (6.2-12.0); Monocyte# 0.87 X10^3/uL; Monocyte% 4.7 % (0-10); NRBC Flagged by Analyzer 0 % (0-5); Neutrophil % 87.1 % (47-70); Platelet Count 710 K/mm3 (150-450); RBC Distribution Width CV 14.2 % (11.6-14.6); RBC Distribution Width SD 52.4 fl (35.1-43.9); Red Blood Count 3.48 M/mm3 (4.6-6.2); White Blood Count 18.5 K/mm3 (4.4-11.0)
[2023-12-14 11:02] LABS: Color, Urine Yellow (Yellow); Glucose, Dipstick Normal (Normal); Ketone-Dipstick Negative (Negative); Leukocyte Esterase-Dipstick 25 /ul (Negative); Nitrite-Dipstick Negative (Negative); Occult Blood-Urine 150 /ul (Negative); Protein-Dipstick Negative (Negative); Specific Gravity, Urine 1.005 (1.002-1.030); Urine Bilirubin Dipstick Negative (Negative); Urine Clarity Clear (Clear); Urine Urobilinogen Normal (Normal)
--- NOTE | 2023-12-14 11:04 | ED.RN ---
Per Dr Oh's request CT pushed to [facility]
[2023-12-14 11:09] LABS: Prothrombin Time (Protime)PT. 13.4 SECONDS (11.7-14.9)
[2023-12-14] MEDS: HYDROmorphone 0.5 MG/0.5 ML SYRINGE IV (11:10)
[2023-12-14] MEDS: Piperacil/Tazobactam 3.375 GM in 0.9% Normal Saline (50mL MB+) 50 ML IV (11:11)
[2023-12-14] MEDS: Vancomycin HCl 1,250 MG in 0.9% Normal Saline (250mL Bag) 250 ML 167 MG IV (11:14)
[2023-12-14 11:15] LABS: Red Blood Cells-Urine 0-5 SEEN /hpf (0-5); White Blood Cells 0-5 SEEN /hpf (0-5)
[2023-12-14 11:36] LABS: Lactic Acid 2.1 mmol/L (0.4-1.9)
--- NOTE | 2023-12-14 11:46 | ED.RN ---
Lactic 2.1
[2023-12-14 11:49] LABS: ALB/GLOB Ratio 0.8 RATIO (0.9-2.4); AST(SGOT) 12 U/L (15-37); Alanine Aminotransfer ALT/SGPT 13 U/L (16-61); Albumin, Serum 2.7 g/dL (3.2-5.0); Alkaline Phosphatase 86 U/L (45-117); Anion Gap 3 (5-15); BUN 10 mg/dL (7-18); BUN/Creat Ratio 12.3 RATIO (10-20); Calcium,Total 8.8 mg/dL (8.5-10.1); Chloride 107 mmol/L (98-107); Creatinine, Serum 0.81 mg/dL (0.70-1.30); EST Glomerular Filtration Rate 104 mL/min (>60); Est Glom Filt Rate - Afr Amer 126 mL/min (>60); Estimated Creatinine Clearance 103.25 ml/min; Globulin 3.4 g/dL (2.2-4.2); Glucose 104 mg/dL (74-106); Lipase 22 U/L (13-75); Potassium 4.2 mmol/L (3.5-5.1); Protein, Total 6.1 g/dL (6.4-8.2); Sodium Level 140 mmol/L (136-145)
--- NOTE | 2023-12-14 11:50 | ED.RN ---
Called Dr Blake Kirby at [facility].
--- NOTE | 2023-12-14 12:40 | ED.RN ---
Called [facility] for transfer. Transfer line stated that main [place] [facility] is very full and they will make him a high priority.
[2023-12-14] MEDS: 0.9% Normal Saline (1000mL) 1,000 ML 75 ML IV (13:11)
[2023-12-14] MEDS: HYDROmorphone 1 MG/ML Syringe 0.5 MG IV (14:16)
[2023-12-14 14:58] LABS: Reflex Lactate? Y
--- NOTE | 2023-12-14 16:14 | ED.RN ---
Called [facility]. Transfer center said pt is the highest priority and should get a bed today but its hard to say
[2023-12-14 16:49] LABS: Lactic Acid 1.2 mmol/L (0.4-1.9)
[2023-12-14] MEDS: HYDROmorphone 1 MG/ML Syringe IV (23:07)
[2023-12-14] MEDS: Piperacil/Tazobactam 3.375 GM Q8 PREMIX IV (23:23)
[2023-12-15] VITALS (48 sets, daily range): BP systolic 99–147; BP diastolic 54–81; PULSE 68–101; RESP 0–34; TEMP 36.9; O2SAT 93–99
[2023-12-15] MEDS: 0.9% Normal Saline (1000mL) 1,000 ML 75 ML IV (05:38)
[2023-12-15] MEDS: Piperacil/Tazobactam 3.375 GM Q8 PREMIX IV (05:39)
--- NOTE | 2023-12-15 09:54 | ED.RN ---
ostomy appliance changed at this time.
[2023-12-15] MEDS: Piperacil/Tazobactam 3.375 GM in 0.9% Normal Saline (50mL MB+) 50 ML IV (13:21)
--- NOTE | 2023-12-15 13:46 | ED.RN ---
[facility] MAIN 1 BED 16 REPORT NUMBER [phone]
--- NOTE | 2023-12-15 13:46 | ED.RN ---
PHYSICIANS CALL ETA 3 HOURS [id number]
--- NOTE | 2023-12-15 16:11 | ED.RN ---
REPORT CALLED TO [id number] NURSE TRIP. NO FURTHER QUESTIONS BY THE RECEIVING NURSE.
--- NOTE | 2023-12-15 16:14 | ED.RN ---
PHYSICIANS CALLED WITH UPDATED ETA 60 MINUTES
[2023-12-15] MEDS: HYDROmorphone 0.5 MG/0.5 ML SYRINGE IV (17:29)
== END 2023-12-15 17:46 | disposition short-term general hospital (02) ==
PROVIDERS: Emergency Provider Student in an Organized Health Care Education/Training Program; PCP Family Medicine; Visit Provider Student in an Organized Health Care Education/Training Program
DX: T81.43XA Infection following a procedure, organ and space surgical site, initial encounter (principal); Z93.3 Colostomy status; M06.9 Rheumatoid arthritis, unspecified; M87.051 Idiopathic aseptic necrosis of right femur; I11.0 Hypertensive heart disease with heart failure; I50.22 Chronic systolic (congestive) heart failure; F31.9 Bipolar disorder, unspecified; K65.1 Peritoneal abscess; J44.9 Chronic obstructive pulmonary disease, unspecified; Y83.8 Other surgical procedures as the cause of abnormal reaction of the patient, or of later complication, without mention of misadventure at the time of the procedure; K76.89 Other specified diseases of liver; E03.9 Hypothyroidism, unspecified; D72.829 Elevated white blood cell count, unspecified; E87.20 Acidosis, unspecified; R33.9 Retention of urine, unspecified; F17.210 Nicotine dependence, cigarettes, uncomplicated
CPT/HCPCS: 74177; 80053; 80178; 81001; 83605; 83690; 85025; 85610; 87040; 96361; 96365; 96366; 96367; 96374; 96375; 96376; 99284; J7030; J7050; Q9967; A4216; J2405